=== PATIENT | female | born 1955 | race Caucasian/White ===

== ENCOUNTER 2022-11-09 12:15 | Outpatient (RCR) | payer MEDICARE, BC, SELFPAY | END 2022-11-16 13:56 | disposition home or self-care (01) | LOC: PT 12:15 | PROVIDERS: PCP Family Medicine; Visit Provider Family Medicine | DX: M25.561 Pain in right knee (principal); R26.9 Unspecified abnormalities of gait and mobility; R26.89 Other abnormalities of gait and mobility | CPT/HCPCS: 97113; 97161 ==

== ENCOUNTER 2023-07-11 13:29 | Outpatient (OUT) | payer MEDICARE, BC, SELFPAY | END 2023-07-11 13:30 | disposition home or self-care (01) | LOC: MN 13:31 | PROVIDERS: PCP Family Medicine | DX: E11.9 Type 2 diabetes mellitus without complications (principal); E78.5 Hyperlipidemia, unspecified | CPT/HCPCS: G0108 ==

== ENCOUNTER 2023-08-04 07:19 | Outpatient (OUT) | payer MEDICARE, BC, SELFPAY ==
--- OUTSIDE RECORDS SUMMARY | 2023-08-04 07:26 | XMS_ITS | CCD ---
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 Name Role Phone MD Jonah Carney Attending Provider NON STAFF Primary Care Provider Jonah Clayton Unavailable Unavailable Primary Care Provider UnavailShaikh Oswald MD Primary Care Provider MD Izabel West Primary Care Provider MD Izabel West Attending Provider PROVIDER, UNKNOWN Referring Unavailable SHAIKH WEST Primary Care Unavailable Shaikh West MD Primary Care Provider Narendra Dao MD Unavailable [phone] Miriam Nj RN Unavailable [phone] Norbert MILKING WORKER.Dipti MCINTYRE Unavailable Melquiades REED Shereen Unavailable Unavailable Shaikh West MD Primary Care Provider Narendra Dao MD Unavailable [phone] Clem SALES, Miriam Unavailable [phone] Norbert MILKING WORKER.MIGUELINA Dipti Unavailable [phone] Melquiades REED Shereen Unavailable Unavailable SHAIKH WEST Primary Care Unavailable GERA PHILLIPS Referring Unavailable MD Shahana Mercedes Attending Provider MD Nate Bobby Primary Care Provider Shaikh West Admitting Unavailable Shaikh West Attending Unavailable Shaikh West Primary Care Unavailable Shahana Mercedes Admitting Unavaila Shahana Tavarez Attending Unavaila Nate Gray Primary Care Unavailable Fawwad, Alejo Admitting Unavailable Fawwad, Alejo Attending Unavailable Fawwad, Alejo Primary Care Unavailable Olexa, Jonah Admitting Unavailable Olexa, Jonah Attending Unavailable NON STAFF Primary Care Unavailable Olexa, Jonah Admitting Unavailable Olexa, Jonah Attending Unavailable NON STAFF Primary Care Unavailable Olexa, Jonah Admitting Unavailable Olexa, Jonah Attending Unavailable NON STAFF Primary Care Unavailable Mukund MCGOVERN, Nate Reis Primary Care Provider Nate Bobby. Primary Care Physician Nate Bobby MD Primary Care Provider FAWWAD, ALEJO H Attending Unavailable FAWWAD, ALEJO H Consulting Unavailable FAWWAD, ALEJO H Primary Care Unavailable FAWWAD, ALEJO H Admitting Unavailable FAWWAD, ALEJO H Attending Unavailable FAWWAD, ALEJO H Consulting Unavailable FAWWAD, ALEJO H Primary Care Unavailable FAWWAD, ALEJO H Admitting Unavailable LENNY, DR JONA Pereira Consulting Unavailable FAWWAD, ALEJO H Primary Care Unavailable OLEXA, JONAH Admitting Unavailable OLEXA, JONAH Attending Unavailable OLEXA, JONAH Consulting Unavailable NATE BOBBY Admitting Unavailable WESTBY, DR PARISA Sumner Consulting Unavailable NATE BOBBY Attending Unavailable FAWWAD, ALEJO H Primary Care Unavailable RICHARD ALONSO Consulting Unavailable NARENDRA DAO Consulting Unavailable FAWWAD, ALEJO H Admitting Unavailable FAWWAD, ALEJO H Attending Unavailable FAWWAD, ALEJO H Consulting Unavailable FAWWAD, ALEJO H Primary Care Unavailable MARIANALYN ., ROBERTA Attending Unavailable TAMLYN ., ROBERTA Admitting Unavailable FAWWAD, ALEJO H Primary Care Unavailable TAMLYN ., ROBERTA Admitting Unavailable TAMLYN ., ROBERTA Attending Unavailable FAWWAD, ALEJO H Primary Care Unavailable FAWWAD, ALEJO H Attending Unavailable FAWWAD, ALEJO H Consulting Unavailable FAWWAD, ALEJO H Primary Care Unavailable FAWWAD, ALEJO H Admitting Unavailable FAWWAD, ALEJO Primary Care Unavailable MERCEDES, SHAHANA E Referring Unavailable FAWWAD, ALEJO Primary Care Unavailable CRITSAL, GERA E Referring Unavailable CRISTAL, GERA E Referring Unavailable ROSS, NATE E Primary Care [facility] Primary Care Unavailable MERCEDES, SHAHANA E Admitting Unavailable MERCEDES, SHAHANA E Attending Unavailable FAWNMD, ALEJO Primary Care Unavailable PROVIDER, UNKNOWN Admitting Unavailable PROVIDER, UNKNOWN Attending Unavailable JONNY SHAW Referring Unavailable JEANIE CHAMBERS Attending Unavail able ROSS, NATE E Primary Care Unavailable FAWWAD, ALEJO Primary Care Unavailable MERCEDES, SHAHANA E Referring Unavailable Clem RN, Miriam Unavailable [phone] Nate Bobby MD Primary Care Provider [phone] Mukund Nate E. Attending Unavailable Ross, Nate E. Attending Unavailable Ross, Nate E. Attending Unavailable Ross, Nate E. Attending Unavailable Richard Siegel Attending Unavailable Ross, Nate E. Attending Unavailable Ross, Nate E. Attending Unavailable Ross, Nate E. Attending Unavailable Ross, Nate E. Attending Unavailable Ross, Nate E. Admitting Unavailable Ross, Nate E. Attending Unavailable Ross, Nate E. Admitting Unavailable Ross, Nate E. Attending Unavailable ROSS, NATE E Primary Care Unavailable ROSS, NATE E Primary Care Unavailable ROSS, NATE E Primary Care Unavailable ROSS, NATE E Primary Care Unavailable REECE LEACH Attending Unavailable ROSS, NATE E Primary Care Unavailable ABHYANKAR, NARENDRA Referring Unavailable ABHYANKAR, NARENDRA Referring Unavailable ABHYANKAR, NARENDRA Attending Unavailable ROSS, NATE E Primary Care Unavailable ABHYANKAR, NARENDRA Referring Unavailable ROSS, NATE E Primary Care Unavailable ROSS, NATE E Primary Care Unavailable ROSS, NATE E Primary Care Unavailable ROSS, NATE E Primary Care Unavailable ABHYANKAR, NARENDRA Referring Unavailable MERCEDES, SHAHANA E Attending Unavailable ROSS, NATE E Primary Care Unavailable CRISTAL, GERA Referring Unavailable ROSS, NATE E Primary Care Unavailable ABHYANKAR, NARENDRA Attending Unavailable ABHYANKAR, NARENDRA Referring Unavailable ROSS, NATE E Primary Care Unavailable ROSS, NATE E Primary Care Unavailable ABHYANKAR, NARENDRA Attending Unavailable ROSS, NATE E Primary Care Unavailable ABHYANKAR, NARENDRA Attending Unavailable ROSS, NATE E Primary Care Unavailable ROSS, NATE E Primary Care Unavailable ROSS, NATE E Primary Care Unavailable ROSS, NATE E Primary Care Unavailable ABHYANKAR, NARENDRA Attending Unavailable ROSS, NATE E Primary Care Unavailable ROSS, NATE E Primary Care Unavailable ROSS, NATE E Primary Care Unavailable DIPTI MERRITT Attending Unavailable ABHYANKAR, NARENDRA Referring Unavailable ROSS, NATE E Primary Care Unavailable ABHYANKAR, NARENDRA Referring Unavailable ROSS, NATE E Primary Care Unavailable ROSS, NATE E Primary Care Unavailable ABHYANKAR, NARENDRA Referring Unavailable ROSS, NATE E Primary Care Unavailable ABHYANKAR, NARENDRA Referring Unavailable ABHYANKAR, NARENDRA Attending Unavailable ROSS, NATE E Primary Care Unavailable ABHYANKAR, NARENDRA Referring Unavailable ABHYANKAR, NARENDRA Referring Unavailable ABHYANKAR, NARENDRA Attending Unavailable ROSS, NATE E Primary Care Unavailable ROSS, NATE E Primary Care Unavailable ABHYANKAR, NARENDRA Attending Unavailable ABHYANKAR, NARENDRA Attending Unavailable ROSS, NATE E Primary Care Unavailable DIPTI MERRITT Referring Unavailable ABHYANKAR, NARENDRA Attending Unavailable ROSS, NATE E Primary Care Unavailable ROSS, NATE E Primary Care Unavailable DIPTI MERRITT Referring Unavailable ROSS, NATE E Primary Care Unavailable ABHYANKAR, NARENDRA Referring Unavailable ABHYANKAR, NARENDRA Attending Unavailable ROSS, NATE E Primary Care Unavailable ZACK WINSTON Referring Unavailable ZACK WINSTON Attending Unavailable ROSS, NATE E Primary Care Unavailable ROSS, NATE E Primary Care Unavailable REECE LEACH Attending Unavailable ROSS, NATE E Primary Care Unavailable ABHYANKAR, NARENDRA Attending Unavailable ROSS, NATE E Primary Care Unavailable ROSS, NATE E Primary Care Unavailable ABHYANKAR, NARENDRA Referring Unavailable ABHYANKAR, NARENDRA Attending Unavailable ROSS, NATE E Primary Care Unavailable ROSS, NATE E Primary Care Unavailable ABHYANKAR, NARENDRA Referring Unavailable ROSS, NATE E Primary Care Unavailable ZACK WINSTON Attending Unavailable ROSS, NATE E Primary Care Unavailable ROSS, NATE E Primary Care Unavailable Allergies Allergy Classification Reported Allergen(s) Allergy Type Date of Onset Reaction(s) Facility Angiotensin Converting Enzyme (CHARITY) Inhibitors (2 sources) Lisinopril Drug Allergy [address] [facility] (20 sources) Estrogens; Translations: [ESTROGENS] Drug Allergy [address] [facility] (20 sources) Lisinopril; Translations: [LISINOPRIL] Drug Allergy [address] [facility] (20 sources) Seasonal allergy; Translations: [SEASONAL ALLERGIES] Allergy to substance 8 Itching, Other: See Comments [facility] Medications Current Medications Medication Drug Class(es) Dates Sig (Normalized) Sig (Original) abemaciclib 50 mg oral tablet (20 sources) Start: 06-08-2023 End: 08-07-2023 take 1 tablet by mouth twice daily abemaciclib (VERZENIO) 50 mg tablet Indications: Breast cancer metastasized to axillary lymph node, right (HCC) , Other drug-induced neutropenia (HCC) take 1 tablet by mouth 2 times a day 60 tablet 1 07/31/2023 Active Start: 03-21-2023 End: 07-19-2023 take 1 tablet by mouth twice daily abemaciclib (VERZENIO) 100 mg tablet Indications: Malignant neoplasm of upper-outer quadrant of right breast in female, estrogen receptor positive (HCC) , Breast cancer metastasized to axillary lymph node, right (HCC) Take 1 tablet (100 mg) by mouth two times a day. 60 tablet 3 03/21/2023 06/08/2023 Discontinued Start: 01-04-2023 take 1 tablet by adalgisa th twice daily abemaciclib (VERZENIO) 150 mg tablet Indications: Malignant neoplasm of upper-outer quadrant of right breast in female, estrogen receptor positive (HCC) (HCC) , Breast cancer metastasized to axillary lymph node, right (HCC) take 1 tablet by mouth 2 times a day 56 tablet 3 01/04/2023 Active Start: 09-20-2022 End: 11-21-2022 take 1 tablet by mouth twice daily abemaciclib (VERZENIO) 150 mg tablet Indications: Malignant neoplasm of upper-outer quadrant of right breast in female, estrogen receptor positive (HCC) , Breast cancer metastasized to axillary lymph node, right (HCC) take 1 tablet by mouth 2 times a day 56 tablet 3 01/04/2023 Active Comment on above: Take 1 tablet (150 m g) by mouth twice daily. take 1 tablet by adalgisa 2 times a day Take 1 tablet (100 m g) by mouth two times a day. Take 1 tablet (50 mg ) by mouth two times a day. acetaminophen 325 mg oral tablet (20 sources) Start: 05-04-2021 Acetaminophen (Tylenol) 325 mg Tablet Active 650 MG PO [id number] May 04, 2021 12:00am take 2 tablets by mo [facility] every six hours as needed acetaminophen (TYLENOL) 325 mg tablet Ta ke 650 mg by mouth every 6 hours as needed. 0 Active Comment on above: Take 650 mg by mouth every 6 hours as needed. acetaminophen 325 mg / HYDROcodone bitartrate 5 mg oral tablet (2 sources) Opioid Agonist Start: End: take 1 tablet by mouth every eight hours as needed for pain HYDROcodone-acetam inophen (NORCO) 5-325 mg per tablet Indications: Malignant neoplasm of upper-outer quadrant of right breast in female, estrogen receptor positive (HCC) Take 1 tablet by mouth every 8 hours as needed for pain for up to 3 days. 5 tablet 0 03/25/2022 03/28/2022 Active Comment on above: Take 1 tablet by adalgisa every 8 hours as needed for pain for up to 3 days. [id number] 200 actuat albuterol 0.09 mg/actuat metered dose inhaler (20 sources) beta2-Adrenergic Agonist Start: take 2 puff(s) by inhalation four times daily as needed for wheezing albuterol HFA (PROVENTIL HFA, VENTOLIN HFA) 90 mcg/actuation inhaler INHALE 2 PUFFS 4 TIMES PER DAY NEEDED FOR SHORTNESS OF BREATH OR WHEEZING 0 02/01/2022 Active Comment on above: INHALE 2 PUFFS 4 SCOTT ES PER DAY NEEDED FOR SHORTNESS OF BREATH OR WHEEZING amLODIPine 10 mg oral tablet (20 sources) Dihydropyridine Calcium Channel Hadley Start: take 1 tablet by mouth once daily amLODIPine 10 mg Tab See Instructions, TAKE 1 TABLET BY MOUTH EVERY DAY, # 90 tab(s), Refills(s) 1, Pharmacy: [id number], 152, cm, 08/09/22 9:37:00 EDT, Height/Length Dosing, 101.5, kg, 08/09/22 9:37:00 EDT, Weight Dosing Start Date: 11/02/22 Status: Ordered Comment on above: Take 10 mg by mouth once daily. amLODIPine Benzoate (12 sources) amLODIPine Benzoate Active anastrozole 1 mg oral tablet (20 sources) Aromatase Inhibitor Start: 024 take 1 tablet by mouth once daily anastrozole (ARIMIDEX) 1 mg tablet Take 1 tablet by mouth once daily. 90 tablet 1 03/01/2023 Active Start: 05-25-2022 End: 01-10-2023 take 1 tablet by mouth once daily anastrozole (ARIMIDEX) 1 mg tablet TAKE 1 TABLET BY MOUTH EVERY DAY 90 tablet 1 01/10/2023 Active Comment on above: Take 1 tablet by adalgisa th once daily. TAKE 1 TABLET BY ADALGISA TH EVERY DAY atorvastatin 40 mg oral tablet (20 sources) HMG-CoA Reductase Inhibitor Start: 09-29-19 take 1 tablet by mouth once daily atorvastatin (LIPITOR) 40 mg tablet Take 40 mg by mouth once daily. 0 09/28/2021 Active Comment on above: Take 40 mg by mouth once daily. 60 actuat budesonide 0.16 mg/actuat / formoterol fumarate 0.0045 mg/actuat metered dose inhaler (9 sources) Corticosteroid, beta2-Adrenergic Agonist Start: 05-03-19 24 take 2 puff(s) by inhalation twice daily SYMBICORT 160-4.5 mcg/actuation inhaler Inhale 2 Puffs as instructed two times a day. 0 05/03/2023 Active Comment on above: Inhale 2 Puffs as in structed two times a day. carvedilol 25 mg oral tablet (20 sources) alpha-Adrenergic Hadley, beta-Adrenergic Hadley Start: 05-05-19 take 1 tablet by mouth twice daily carvedilol (COREG) 25 mg tablet Take 25 mg by mouth twice daily. 0 09/25/2021 Active Comment on above: Take 25 mg by mouth twice daily. celecoxib 100 mg oral capsule (20 sources) Nonsteroidal Anti-inflammatory Drug Start: 07-13-19 23 take 1 capsule by mouth twice daily celecoxib (CELEBREX) 100 mg capsule Take 100 mg by mouth twice daily. 0 07/12/2022 Active Comment on above: Take 100 mg by mouth twice daily. cephalexin 500 mg oral capsule (6 sources) Cephalosporin Antibacterial Start: 05-20-19 take 1 capsule by mouth every eight hours Cephalexin 500 MG 1 capsule Orally every 8 hrs for 2 days Apr, Active enteric contrast (will be provided with radiology test) (20 sources) Start: 12-14-19 End: 12-15-19 enteric contrast (will be provided with radiology test) For CT CHESTABD/PEL W IVCON Routine order Administer, As Directed One Time Only, via Oral, Rectal, both Oral and Rectal, Enteric Tube, Stoma or Indwelling Catheter, Enteric Contrast as designated per enteric contrast guidelines 1 Each 0 12/13/2022 12/14/2022 Active Start: 02-12-2022 End: 02-13-2022 enteric contrast (will be pr ovided with radiology test) For CT CHESTABD/PEL W IVCON Routine order Administer, As Directed One Time Only, via Oral, Rectal, both Oral and Rectal, Enteric Tube, Stoma or Indwelling Catheter, Enteric Contrast as designated per enteric contrast guidelines 1 Each 0 02/12/2022 02/13/2022 Active Start: 11-12-2021 End: 01-15-2022 enteric contrast (will be pr ovided with radiology test) For CT ABD/PEL W IVCON Routine order Administer, As Directed One Time Only, via Oral, Rectal, both Oral and Rectal, Enteric Tube, Stoma or Indwelling Catheter, Enteric Contrast as designated per enteric contrast guidelines 1 Each 0 11/12/2021 01/15/2022 Discontinued (Erroneous entry) Start: 11-12-[address] (will be provided with radiology test) For CT ABD/PEL W IVCON Routine order Administer, As Directed One Time Only, via Oral, Rectal, both Oral and Rectal, Enteric Tube, Stoma or Indwelling Catheter, Enteric Contrast as designated per enteric contrast guidelines 1 Each 0 11/12/2021 Active Comment on above: For CT ABD/PEL W IVC ON Routine order Administer, As Directed One Time Only, via Oral, Rectal, both Oral and Rectal, Enteric Tube, Stoma or Indwelling Catheter, Enteric Contrast as designated per enteric contrast guidelines For CT CHESTABD/PEL W IVCON Routine order Administer, As Directed One Time Only, via Oral, Rectal, both Oral and Rectal, Enteric Tube, Stoma or Indwelling Catheter, Enteric Contrast as designated per enteric contrast guidelines famciclovir 500 mg oral tablet (2 sources) Herpes Simplex Virus Nucleoside Analog DNA Polymerase Inhibitor Start: 2022 End: 2022 take 1 tablet by mouth three times daily famciclovir (FAMVIR) 500 mg tablet Take 1 tablet by mouth three times daily for 10 days. 30 tablet 0 10/05/2022 10/15/2022 Active Comment on above: Take 1 tablet by adalgisa th three times daily for 10 days. hydroCHLOROthiazide 25 mg oral tablet (16 sources) Thiazide Diuretic Start: 2021 take 25 mg by mouth once daily in the morning Hydrochlorothiazide Active 25 MG PO Every morning May 04, 2021 12:00am iv contrast (will be provided with radiology test) (20 sources) Start: 2022 End: 2022 iv contrast (will be provided with radiology test) CT Chest W -Inject, intravenously, once for 1 dose.No IV access, insert saline lock prior to the beginning of sedation, infusion, injection of imaging exam. Discontinue saline lock post exam. If Pt. has a central line or IVAD, may access for administration according to line specific nursing protocol. Once exam is complete flush line and de-access according to line specific nursing protocol in the CT contrast administration guidelines link. 1 Each 0 01/27/2023 01/28/2023 Active Start: 12-13-2022 End: 12-14-2022 iv contrast (will be provide d with radiology test) CT Chest ABD/PEL-Inject, intravenously, once for 1 dose.No IV access, insert saline lock prior to the beginning of sedation, infusion, injection of imaging exam. Discontinue saline lock post exam. If Pt. has a central line or IVAD, may access for administration according to line specific nursing protocol. Once exam is complete flush line and de-access according to line specific nursing protocol in the CT contrast administration guidelines link. 1 Each 0 12/13/2022 12/14/2022 Active Start: 02-12-2022 End: 02-13-2022 iv contrast (will be provide d with radiology test) MRI Breast AUSTEN Inject, intravenously, once for 1 dose. No IV access, insert saline lock prior to the beginning of sedation, infusion, injection of imaging exam. Discontinue saline lock post exam. If Pt has a central line or IVAD, may access for administration according to line specific nursing protocol. Once exam is complete flush line and de-access according to line specific nursing protocol in the MR contrast administration guidelines link 1 Each 0 02/12/2022 02/13/2022 Start: 02-12-2022 End: 02-13-2022 iv contrast (will be provide d with radiology test) MRI Breast AUSTEN Inject, intravenously, once for 1 dose. No IV access, insert saline lock prior to the beginning of sedation, infusion, injection of imaging exam. Discontinue saline lock post exam. If Pt has a central line or IVAD, may access for administration according to line specific nursing protocol. Once exam is complete flush line and de-access according to line specific nursing protocol in the MR contrast administration guidelines link 1 Each 0 02/12/2022 02/13/2022 Active Start: 02-12-2022 End: 02-13-2022 iv contrast (will be provide d with radiology test) CT Chest ABD/PEL-Inject, intravenously, once for 1 dose.No IV access, insert saline lock prior to the beginning of sedation, infusion, injection of imaging exam. Discontinue saline lock post exam. If Pt. has a central line or IVAD, may access for administration according to line specific nursing protocol. Once exam is complete flush line and de-access according to line specific nursing protocol in the CT contrast administration guidelines link. 1 Each 0 02/12/2022 02/13/2022 Active Start: 11-12-2021 End: 01-15-2022 iv contrast (will be provide d with radiology test) CT ABD/PEL -Inject, intravenously, once for 1 dose.No IV access, insert saline lock prior to the beginning of sedation, infusion, injection of imaging exam. Discontinue saline lock post exam. If Pt. has a central line or IVAD, may access for administration according to line specific nursing protocol. Once exam is complete flush line and de-access according to line specific nursing protocol in the CT contrast administration guidelines link. 1 Each 0 11/12/2021 01/15/2022 Discontinued (Erroneous entry) Start: 11-12-2021 iv contrast (w ill be provided with radiology test) CT ABD/PEL -Inject, intravenously, once for 1 dose.No IV access, insert saline lock prior to the beginning of sedation, infusion, injection of imaging exam. Discontinue saline lock post exam. If Pt. has a central line or IVAD, may access for administration according to line specific nursing protocol. Once exam is complete flush line and de-access according to line specific nursing protocol in the CT contrast administration guidelines link. 1 Each 0 11/12/2021 Active Start: 10-21-2021 End: 10-22-2021 iv contrast (will be provide d with radiology test) MRI Breast AUSTEN Inject, intravenously, once for 1 dose. No IV access, insert saline lock prior to the beginning of sedation, infusion, injection of imaging exam. Discontinue saline lock post exam. If Pt has a central line or IVAD, may access for administration according to line specific nursing protocol. Once exam is complete flush line and de-access according to line specific nursing protocol in the MR contrast administration guidelines link 1 Each 0 10/21/2021 10/22/2021 Start: 10-21-2021 End: 10-22-2021 iv contrast (will be provide d with radiology test) CT Chest W -Inject, intravenously, once for 1 dose.No IV access, insert saline lock prior to the beginning of sedation, infusion, injection of imaging exam. Discontinue saline lock post exam. If Pt. has a central line or IVAD, may access for administration according to line specific nursing protocol. Once exam is complete flush line and de-access according to line specific nursing protocol in the CT contrast administration guidelines link. 1 Each 0 10/21/2021 10/22/2021 Start: 10-21-2021 End: 10-22-2021 iv contrast (will be provide d with radiology test) MRI Breast AUSTEN Inject, intravenously, once for 1 dose. No IV access, insert saline lock prior to the beginning of sedation, infusion, injection of imaging exam. Discontinue saline lock post exam. If Pt has a central line or IVAD, may access for administration according to line specific nursing protocol. Once exam is complete flush line and de-access according to line specific nursing protocol in the MR contrast administration guidelines link 1 Each 0 10/21/2021 10/22/2021 Active Start: 10-21-2021 End: 10-22-2021 iv contrast (will be provide d with radiology test) CT Chest W -Inject, intravenously, once for 1 dose.No IV access, insert saline lock prior to the beginning of sedation, infusion, injection of imaging exam. Discontinue saline lock post exam. If Pt. has a central line or IVAD, may access for administration according to line specific nursing protocol. Once exam is complete flush line and de-access according to line specific nursing protocol in the CT contrast administration guidelines link. 1 Each 0 10/21/2021 10/22/2021 Active Comment on above: MRI Breast AUSTEN Injec t, intravenously, once for 1 dose. No IV access, insert saline lock prior to the beginning of sedation, infusion, injection of imaging exam. Discontinue saline lock post exam. If Pt has a central line or IVAD, may access for administration according to line specific nursing protocol. Once exam is complete flush line and de-access according to line specific nursing protocol in the MR contrast administration guidelines link CT Chest W -Inject, intravenously, once for 1 dose.No IV access, insert saline lock prior to the beginning of sedation, infusion, injection of imaging exam. Discontinue saline lock post exam. If Pt. has a central line or IVAD, may access for administration according to line specific nursing protocol. Once exam is complete flush line and de-access according to line specific nursing protocol in the CT contrast administration guidelines link. CT ABD/PEL -Inject, intravenously, once for 1 dose.No IV access, insert saline lock prior to the beginning of sedation, infusion, injection of imaging exam. Discontinue saline lock post exam. If Pt. has a central line or IVAD, may access for administration according to line specific nursing protocol. Once exam is complete flush line and de-access according to line specific nursing protocol in the CT contrast administration guidelines link. CT Chest ABD/PEL-Inj ect, intravenously, once for 1 dose.No IV access, insert saline lock prior to the beginning of sedation, infusion, injection of imaging exam. Discontinue saline lock post exam. If Pt. has a central line or IVAD, may access for administration according to line specific nursing protocol. Once exam is complete flush line and de-access according to line specific nursing protocol in the CT contrast administration guidelines link. levothyroxine sodium 0.05 mg oral tablet (20 sources) l-Thyroxine Start: 11-03-19 take 1 tablet by mouth once daily levothyroxine 50 mcg (0.05 mg) Tab See Instructions, TAKE 1 TABLET BY MOUTH EVERY DAY, # 90 tab(s), Refills(s) 1, Pharmacy: [facility] STORE [id number], 152, cm, 08/09/22 9:37:00 EDT, Height/Length Dosing, 101.5, kg, 08/09/22 9:37:00 EDT, Weight Dosing Start Date: 11/02/22 Status: Ordered Start: 05-03-2022 take 1 tablet by adalgisa once daily levothyroxine 50 mcg (0.05 mg) Tab 50 mcg = 1 tab(s), Oral, Daily, # 90 tab(s), Refills(s) 1, Pharmacy: [facility]/pharmacy #[id number], 157, cm, 05/03/22 11:07:00 EST, Height/Length Dosing, 100.2, kg, 05/03/22 11:07:00 EST, Weight Dosing Start Date: 05/03/22 Status: Ordered Start: 05-04-2021 take 50 ug by mouth once daily in the morning Levothyroxine Active 50 MCG PO Every morning May 04, 2021 12:00am take 50 ug by mouth once daily l evothyroxine sodium (LEVOTHYROXINE ORAL) Take 50 mcg by mouth once daily. 0 Active take 1 capsule by mo [facility] once daily in the morning Levothyroxine Sodium 50 MCG 1 capsule in the morning on an empty stomach Orally Once a day Active levothyroxine so dium (LEVOTHYROXINE ORAL) Take by mouth. 0 Active Comment on above: Take by mouth. Take 50 mcg by mouth once daily. loperamide hydrochloride 2 mg oral capsule (20 sources) Opioid Agonist Start: 3 take 1 capsule by mouth every six hours as needed loperamide (ANTI-DIARRHEAL) 2 mg cap(s) Take 1 capsule by mouth four times daily as needed for diarrhea. 100 capsule 1 09/21/2022 Active Comment on above: Take 1 capsule by mo [facility] four times daily as needed for diarrhea. loratadine 10 mg oral tablet (20 sources) Start: 2 take 1 tablet by mouth once daily loratadine (CLARITIN) 10 mg tablet Take 10 mg by mouth once daily. 0 08/25/2021 Active Comment on above: Take 10 mg by mouth once daily. losartan potassium 100 mg oral tablet (20 sources) Angiotensin 2 Receptor Hadley Start: 2 End: 2 take 100 mg by mouth once daily in the morning Losartan Active 100 MG PO Every morning May 04, 2021 12:00am Comment on above: Take 100 mg by mouth once daily. meloxicam 15 mg oral tablet (20 sources) Nonsteroidal Anti-inflammatory Drug Start: 2 End: 2 take 15 mg by mouth once daily Meloxicam Active 15 MG PO Daily May 04, 2021 12:00am Comment on above: Take 15 mg by mouth once daily. metFORMIN hydrochloride 1000 mg oral tablet (20 sources) Biguanide Start: 2 metFORMIN (GLUCOPHAGE) 1,000 mg tablet Metformin Active 1000 MG PO Every morning May 04, 2021 3:24pm 0 05/04/2021 Active Start: 05-04-2021 metFORMIN (GLU COPHAGE) 1,000 mg tablet Metformin Active 1000 MG PO Every morning May 04, 2021 3:24pm 0 05/04/2021 Active Comment on above: Metformin Active 100 0 MG PO Every morning May 04, 2021 3:24pm Metformin & Diet Manage Prod (12 sources) Metformin & Diet Manage Prod Active multivit-min/iron/FA/ vit K/lut (CENTRUM SILVER WOMEN ORAL) (9 sources) multivit-min/iro n/FA /vit K/lut (CENTRUM SILVER WOMEN ORAL) Take by mouth once daily. Over 50 0 Active Comment on above: Take by mouth once d aily. Over 50 ondansetron 8 mg oral tablet (20 sources) Serotonin-3 Receptor Antagonist Start: 3 take 1 tablet by mouth every eight hours as needed ondansetron (ZOFRAN) 8 mg tablet Take 1 tablet by mouth every 8 hours as needed for nausea/vomiting. 90 tablet 1 09/21/2022 Active Start: 11-18-2021 End: 08-17-2022 take 1 tablet by mouth every eight hours as needed ondansetron (ZOFRAN) 8 mg tablet Take 1 tablet by mouth every 8 hours as needed for nausea/vomiting. 90 tablet 1 11/18/2021 08/17/2022 Discontinued (Discontinued by Patient) Comment on above: Take 1 tablet by adalgisa th every 8 hours as needed for nausea/vomiting. Ozempic (12 sources) Ozempic Active polyethylene glycol 3350 382228 mg / potassium chloride 2970 mg / sodium bicarbonate 6740 mg / sodium chloride 5860 mg / sodium sulfate 26057 mg powder for oral solution (2 sources) Osmotic Laxative Start: 2022 End: 2022 peg 3350-Electrolytes (GOLYTELY) 236-22.74-6.74 -5.86 gram suspension Take 4,000 mL by mouth one time only for 1 dose. Refer to printed prep instructions from your provider. 4000 mL 0 03/22/2022 03/22/2022 Active Comment on above: Take 4,000 mL by adalgisa th one time only for 1 dose. Refer to printed prep instructions from your provider. prochlorperazine 10 mg oral tablet (20 sources) Phenothiazine Start: 2022 take 1 tablet by mouth every six hours as needed prochlorperazine (COMPAZINE) 10 mg tablet Take 1 tablet by mouth every 6 hours as needed. 100 tablet 1 09/21/2022 Active Start: 11-18-2021 End: 08-17-2022 take 1 tablet by mouth every six hours as needed prochlorperazine (COMPAZINE) 10 mg tablet Take 1 tablet by mouth every 6 hours as needed. 100 tablet 1 11/18/2021 08/17/2022 Discontinued (Discontinued by Patient) Comment on above: Take 1 tablet by adalgisa th every 6 hours as needed. rOPINIRole 0.25 mg oral tablet (20 sources) Nonergot Dopamine Agonist Start: 05-04-2021 take 1 tablet by mouth once daily ropinirole 0.25 mg Tab See Instructions, TAKE 1 TABLET BY MOUTH EVERY DAY, # 90 tab(s), Refills(s) 1, Pharmacy: [facility] STORE [id number], 152, cm, 11/08/22 8:44:00 EDT, Height/Length Dosing, 97.1, kg, 11/08/22 8:44:00 EDT, Weight Dosing Start Date: 01/14/23 Status: Ordered take 1 tablet by mouth three scott es daily rOPINIRole (REQUIP) 0.25 mg tablet Take 0.25 mg by mouth three times daily. 0 Active Comment on above: Take 0.25 mg by mout h three times daily. Take 0.25 mg by mout h daily at bedtime. 0.25 mg, 0.5 mg dose 1.5 ml semaglutide 1.34 mg/ml pen injector (20 sources) Start: 05-04-2021 Semaglutide (Ozempic) 0.25 mg or 0.5 mg(2 mg/1.5 mL) pen injector Active 0.5 MG SUBCUT every week May 04, 2021 12:00am End: 05-04-2022 semaglutide (OZEMPIC) 0.25 m g or 0.5 mg(2 mg/1.5 mL) pen injector Inject 0.25 mg subcutaneously one time a week. 0 05/04/2022 Discontinued Comment on above: Inject 0.25 mg subcu taneously one time a week. sulfamethoxazole 800 mg / trimethoprim 160 mg oral tablet (5 sources) Dihydrofolate Reductase Inhibitor Antibacterial, Sulfonamide Antimicrobial Start: 05-14-19 End: 05-21-19 take 1 tablet by mouth twice daily sulfamethoxazole -trimethoprim (BACTRIM DS) 800-160 mg per tablet Take 1 tablet by mouth twice daily for 7 days. 14 tablet 0 05/13/2022 05/20/2022 Active Comment on above: Take 1 tablet by adalgisa th twice daily for 7 days. traMADol hydrochloride 50 mg oral tablet (20 sources) Opioid Agonist Start: 05-05-19 take 50 mg by mouth three times daily Tramadol Active 50 MG PO Three times daily May 04, 2021 12:00am End: 11-19-2021 take 1 tablet by mouth every six hours as needed traMADol (ULTRAM) 50 mg tablet Take 50 mg by mouth every 6 hours as needed for pain. 0 11/19/2021 Discontinued (Discontinued by Patient) Comment on above: Take 50 mg by mouth every 6 hours as needed for pain. Completed/Discontinued Medications Medication Drug Class(es) Dates Sig (Normalized) Sig (Original) acetaminophen 325 mg / oxyCODONE hydrochloride 5 mg oral tablet (6 sources) Opioid Agonist Start: 05-19-2021 take 1 tablet by mouth every four hours as needed for pain Percocet 5-325 MG 1 tablet as needed for pain Orally up to every 4 hrs for 5 days Apr, Not-Taking alteplase 2 mg catheter clearance solution (CATHFLO) (1 source) Start: 02-05-2022 End: 02-05-2022 alteplase 2 mg catheter clearance solution (CATHFLO) amoxicillin 875 mg / clavulanate 125 mg oral tablet (7 sources) Penicillin-class Antibacterial Start: 04-15-2022 End: 04-25-2022 take 1 tablet by mouth every twelve hours amoxicillin-clav ulanic acid (AUGMENTIN) 875-125 mg per tablet Take 1 tablet by mouth every 12 hours for 10 days. 20 tablet 0 04/15/2022 04/25/2022 Start: 02-15-2022 End: 02-22-2022 take 1 tablet by mouth twice daily amoxicillin-clavulanic acid (AUGMENTIN) 875-125 mg per tablet Take 1 tablet by mouth twice daily for 7 days. 14 tablet 0 02/15/2022 02/22/2022 Active Comment on above: Take 1 tablet by adalgisa th twice daily for 7 days. Take 1 tablet by adalgisa th every 12 hours for 10 days. diphenhydrAMINE 12.5 mg/5 mL lidocaine visc 2% MAALOX 200-200-20 mg/5 mL oral liquid 1:1:1 (CPD) (7 sources) Start: 07-08-2022 End: 08-17-2022 diphenhydrAMINE 12.5 mg/5 mL lidocaine visc 2% MAALOX 200-200-20 mg/5 mL oral liquid 1:1:1 (CPD) Take 5-10 mL by mouth and swallow (allowing to coat the back of the throat) 5-6 times a day as needed for discomfort including before meals and before bedtime 360 mL 1 07/08/2022 08/17/2022 Discontinued (Course of therapy completed) Start: 07-08-2022 diphenhydrAMIN E 12.5 mg/5 mL lidocaine visc 2% MAALOX 200-200-20 mg/5 mL oral liquid 1:1:1 (CPD) Take 5-10 mL by mouth and swallow (allowing to coat the back of the throat) 5-6 times a day as needed for discomfort including before meals and before bedtime 360 mL 1 07/08/2022 Active Comment on above: Take 5-10 mL by mout h and swallow (allowing to coat the back of the throat) 5-6 times a day as needed for discomfort including before meals and before bedtime hydroCHLOROthiazide 25 mg / losartan potassium 100 mg oral tablet (7 sources) Thiazide Diuretic, Angiotensin 2 Receptor Hadley Start: End: take 1 tablet by mouth once daily losartan-hydroCHLOR Othiazide (HYZAAR) 100-25 mg per tablet Take 1 tablet by mouth once daily. 0 12/15/2021 02/12/2022 Discontinued (Discontinued by another Health Care Provider) Comment on above: Take 1 tablet by adalgisa th once daily. multivit-min/ferrous fumarate (MULTI VITAMIN ORAL) (6 sources) End: multivit-min/ferrou s fumarate (MULTI VITAMIN ORAL) Take by mouth once daily. 0 07/29/2023 Discontinued multivit-min/sherri moncho fumarate (MULTI VITAMIN ORAL) Take by mouth once daily. 0 Active Comment on above: Take by mouth once d aily. multivitamin with minerals (HAIR,SKIN AND NAILS ORAL) (20 sources) End: 02-26-2023 take 2 tablets by mouth once daily multivitamin with minerals (HAIR,SKIN AND NAILS ORAL) Take 2 tablets by mouth once daily. 0 02/26/2023 Discontinued take 2 tablets by mouth once katheryn ly multivitamin with minerals (HAIR,SKIN AND NAILS ORAL) Take 2 tablets by mouth once daily. 0 Active Comment on above: Take 2 tablets by mo uth once daily. multivitamin/folic acid/biotin (NWZY-[id number]-OPQUX, RW-RP-OAURZX, ORAL) (20 sources) End: 04-11-2022 take 3 tablets by mouth once daily multivitamin/folic acid/biotin (BGLE-XVKC-BFKHU, FL-YL-BARRVS, ORAL) Take 3 tablets by mouth once daily. 0 04/11/2022 Discontinued take 3 tablets by mouth once katheryn ly multivitamin/folic acid/biotin (FAOA-FYCC-VCLLE, AJ-LT-SZUTJT, ORAL) Take 3 tablets by mouth once daily. 0 Active Comment on above: Take 3 tablets by mo uth once daily. nystatin 100 unt/mg topical powder (20 sources) Polyene Antifungal Start: 06-22-2022 End: 08-17-2022 nystatin (MYCOSTATIN) powder Apply to affected area 2-3 times a day until resolved. 60 g 1 06/22/2022 08/17/2022 Discontinued (Discontinued by another Health Care Provider) Start: 05-13-2022 End: 05-26-2022 nystatin (MYCOSTATIN) powder Apply 1 application to affected area twice daily. 15 g 0 05/13/2022 05/26/2022 Discontinued Comment on above: Apply 1 application to affected area twice daily. Apply to affected ar ea 2-3 times a day until resolved. Triamcinolone (14 sources) Corticosteroid Start: 03-24-2021 Kenalog -40 mg Feb, 40 mg Start: 09-23-2020 Kenalog -40 mg Aug, 40 mg Problems Active Problems Problem Classification Problem Date Documented Da te Episodic/Chronic Asthma (20 sources) Mild intermittent asthma; Translations: [Mild intermittent asthma, uncomplicated] Onset: 02-08-2022 Chronic Cancer of breast (20 sources) Malignant neoplasm of upper-outer quadrant of female breast; Translations: [Malignant neoplasm of upper-outer quadrant of right female breast] Onset: 10-21-2021 10-21-2021 Chronic Cancer of breast (1 source) Personal history of malignant neoplasm of breast; Translations: [PERS HX MALIGNANT NEOPLASM BREAST] Onset: 07-20-2022 Episodic Chronic kidney disease (20 sources) Chronic kidney disease stage 3; Translations: [Stage 3 chronic kidney disease] Onset: 12-15-2022 12-15-2022 Chronic Coagulation and hemorrhagic disorders (20 sources) Platelet count below reference range; Translations: [Thrombocytopenia, unspecified] Onset: 12-15-2022 12-15-2022 Chronic Complications of surgical procedures or medical care (7 sources) Dehiscence of surgical wound; Translations: [Disruption of external operation (surgical) wound, not elsewhere classified, sequela] Onset: 06-28-2022 Episodic Diabetes mellitus with complications (2 sources) Type 2 diabetes mellitus with hypoglycemia without coma; Translations: [Type 2 diabetes mellitus with diabetic nephropathy] Onset: 02-13-2022 Chronic Diabetes mellitus without complication (20 sources) Type 2 diabetes mellitus without complication; Translations: [Type 2 diabetes mellitus without complications] Onset: 03-19-2022 Chronic Diseases of white blood cells (20 sources) Drug-induced neutropenia; Translations: [Other drug-induced agranulocytosis] Onset: 04-11-2023 04-11-2023 Chronic Disorders of lipid metabolism (20 sources) Hyperlipidemia; Translations: [Hyperlipidemia, unspecified] Onset: 03-19-2022 Chronic Diverticulosis and diverticulitis (7 sources) Diverticulitis; Translations: [Diverticulitis of intestine, part unspecified, without perforation or abscess without bleeding] Onset: 05-24-2022 Chronic Essential hypertension (20 sources) Essential hypertension; Translations: [Essential (primary) hypertension] Onset: 03-19-2022 Chronic Heart valve disorders (20 sources) Aortic valve regurgitation; Translations: [Nonrheumatic aortic (valve) insufficiency] Onset: 03-19-2022 Chronic Immunizations and screening for infectious disease (1 source) Needs influenza immunization; Translations: [Encounter for immunization] Episodic Menopausal disorders (4 sources) Menopausal and female climacteric states; Translations: [MENOPAUSAL FE CLIMACTERIC STATES] Onset: 07-27-2022 Chronic Mood disorders (20 sources) Recurrent major depressive episodes, moderate ; Translations: [Major depressive disorder, recurrent, moderate] Onset: 07-23-2022 07-23-2022 Chronic Nonmalignant breast conditions (5 sources) Breast lump; Translations: [Unspecified lump in the right breast, unspecified quadrant] 10-02-2021 Episodic Osteoarthritis (17 sources) Osteoarthritis of joint of right shoulder region; Translations: [Primary osteoarthritis, right shoulder] Onset: 2021 Resolved: 09-01-2021 Chronic Other aftercare (5 sources) Surgical follow-up; Translations: [Encounter for follow-up examination after completed treatment for conditions other than malignant neoplasm] Episodic Other bone disease and musculoskeletal deformities (1 source) Other specified disorders of bone density and structure, other site; Translations: [OTH D/O BONE DEN STRUCT OTH SITE] Onset: 07-28-2022 Episodic Other bone disease and musculoskeletal deformities (1 source) Osteopenia 07-28-2022 Episodic Other connective tissue disease (6 sources) History of reverse prosthetic total arthroplasty of right shoulder; Translations: [Presence of right artificial shoulder joint] Chronic Other connective tissue disease (8 sources) Presence of right artificial shoulder joint; Translations: [PRESENCE RT ARTIFICIAL SHOULDER JNT] Onset: 05-19-2021 Resolved: 09-01-2021 Chronic Other connective tissue disease (11 sources) Full thickness rotator cuff tear; Translations: [Complete rotator cuff tear or rupture of right shoulder, not specified as traumatic] Episodic Other connective tissue disease (7 sources) Muscle finding; Translations: [Myalgia, unspecified site] Onset: 08-02-2023 11-09-2022 Episodic Other connective tissue disease (1 source) Muscle pain; Translations: [Myalgia, unspecified site] 08-01-2023 Episodic Other hematologic conditions (1 source) Cytopenia caused by drug; Translations: [Disease of blood and blood-forming organs, unspecified] 04-11-2023 Episodic Other hereditary and degenerative nervous system conditions (20 sources) Restless legs; Translations: [Restless legs syndrome] Onset: 03-19-2022 Chronic Other lower respiratory disease (3 sources) Multiple nodules of lung; Translations: [Other nonspecific abnormal finding of lung field] Episodic Other non-traumatic joint disorders (12 sources) Derangement of right shoulder joint; Translations: [Other specific joint derangements of right shoulder, not elsewhere classified] Chronic Other non-traumatic joint disorders (1 source) Other specific joint derangements of right shoulder, not elsewhere classified Onset: 03-17-2021 Resolved: 03-17-2021 Chronic Other non-traumatic joint disorders (1 source) Knee pain 08-09-2022 Episodic Other nutritional; endocrine; and metabolic disorders (20 sources) Morbid obesity; Translations: [Morbid (severe) obesity due to excess calories] Onset: 03-19-2022 Chronic Other nutritional; endocrine; and metabolic disorders (20 sources) Body mass index 40+ - severely obese; Translations: [Morbid (severe) obesity due to excess calories] Onset: 03-23-2022 03-23-2022 Chronic Secondary malignancies (2 sources) Secondary and unspecified malignant neoplasm of axilla and upper limb lymph nodes; Translations: [Breast cancer metastasized to axillary lymph node, right (HCC)] Onset: 03-09-2022 Chronic Thyroid disorders (20 sources) Hypothyroidism; Translations: [Hypothyroidism, unspecified] Onset: 02-13-2022 Chronic Unclassified (1 source) Malignant neoplasm of unspecified site of right female breast; Translations: [Malignant neoplasm of unspecified site of right female breast] Onset: 04-23-2022 Unclassified (1 source) Unspecified lump in the right breast, upper outer quadrant; Translations: [Unspecified lump in the right breast, upper outer quadrant] Onset: 10-02-2021 Unclassified (1 source) Unspecified lump in the right breast, upper inner quadrant; Translations: [Unspecified lump in the right breast, upper inner quadrant] Onset: 09-30-2021 Unclassified (1 source) M75.121 - Complete rotator cuff tear or rupture of right shoulder, not specified as traumatic; Translations: [M75.121 - Complete rotator cuff tear or rupture of right shoulder, not specified as traumatic] Onset: 05-20-2021 Unclassified (1 source) Z01.812 - Encounter for preprocedural laboratory examination; Translations: [Z01.812 - Encounter for preprocedural laboratory examination] Onset: 05-18-2021 Unclassified (1 source) Encounter for preprocedural laboratory examination; Translations: [Encounter for preprocedural laboratory examination] Onset: 05-04-2021 Unclassified (2 sources) Non-smoker 05-03-2022 Unclassified (1 source) OPENED IN ERROR Unclassified (1 source) Pain of knee region 11-08-2022 Viral infection (4 sources) Herpes zoster without complication; Translations: [Zoster without complications] 10-05-2022 Episodic Past or Other Problems Problem Classification Problem Date Documented Date Episodic/Chronic Deficiency and other anemia (20 sources) Anemia; Translations: [Anemia, unspecified] Onset: 03-19-2022 Episodic Deficiency and other anemia (4 sources) Anemia, unspecified; Translations: [ANEMIA UNSPECIFIED] Onset: 02-24-2022 Episodic Other connective tissue disease (5 sources) Complete rotator cuff tear or rupture of right shoulder, not specified as traumatic Onset: 2021 Resolved: 09-01-2021 Episodic Other lower respiratory disease (1 source) Other nonspecific abnormal finding of lung field; Translations: [Lung nodules] Onset: 02-17-2023 Episodic Other non-traumatic joint disorders (6 sources) Pain in right shoulder Onset: 03-17-2021 Resolved: 09-01-2021 Episodic Other non-traumatic joint disorders (1 source) Pain in right knee Onset: 09-01-2021 Resolved: 09-01-2021 Episodic Residual codes; unclassified (6 sources) Estrogen receptor positive status [ER+]; Translations: [Malignant neoplasm of upper-outer quadrant of right breast in female, estrogen receptor positive (HCC)] Onset: 10-21-2021 Episodic Residual codes; unclassified (20 sources) At risk of lymphedema; Translations: [Other specified personal risk factors, not elsewhere classified] Onset: 05-13-2022 Episodic Residual codes; unclassified (20 sources) Postoperative state; Translations: [Other specified postprocedural states] Onset: 05-20-2022 Episodic Results Test Name Value Interpretation Reference Range Facil ity CNOVSPon 08-02-2023 CNOVSP Normal [facility] CBC W Auto Differential pane l (Bld)on 08-01-2023 Basophils (Bld) [#/Vol] [facility] Basophils/100 WBC (Bld) 0.8 % [facility] Differential cell count method Nom (Bld) Auto [facility] Eosinophils (Bld) [#/Vol] 0.07 10*3/uL [facility] Eosinophils/100 WBC (Bld) 2.7 % [facility] Erythrocyte distribution width (RBC) [Ratio] 14.1 % 11.5 - 15.0 % [facility] Hematocrit (Bld) [Volume fraction] 33.2 % Low 36.0 - 46.0 % [facility] Hemoglobin (Bld) [Mass/Vol] 11.2 g/dL Low 11.5 - 15.5 g/dL [facility] Immature granulocytes (Bld) [#/Vol] [facility] Immature granulocytes/100 WBC (Bld) 0.8 % [facility] Interpretation and review of laboratory results Abnormal [facility] Lymphocytes (Bld) [#/Vol] 0.92 10*3/uL Low [facility] Lymphocytes/100 WBC (Bld) 35.1 % [facility] MCH (RBC) [Entitic mass] 34.5 pg High 26.0 - 34.[address] [facility] MCHC (RBC) [Mass/Vol] 33.7 g/dL 30.5 - 36.0 g/dL [facility] MCV (RBC) [Entitic vol] 102.2 fL High 80.0 - 100.[address] [facility] Monocytes (Bld) [#/Vol] 0.21 10*3/uL [facility] Monocytes/100 WBC (Bld) 8.0 % [facility] Neutrophils (Bld) [#/Vol] 1.38 10*3/uL Low [facility] Neutrophils/100 WBC (Bld) 52.6 % [facility] Nucleated RBC (Bld) [#/Vol] NINF [facility] Nucleated RBC/100 WBC (Bld) [Ratio] 0.0 % /[address] [facility] Platelet mean volume (Bld) [Entitic vol] 9.1 fL 9.0 - 12.[address] [facility] Platelets (Bld) [#/Vol] 161 10*3/uL [facility] RBC (Bld) [#/Vol] 3.25 10*6/uL Low 3.90 - 5.20 m/uL [facility] WBC (Bld) [#/Vol] 2.62 10*3/uL Low [facility] Basophils (Bld) [#/Vol] 10*3/uL Normal <0.11 [facility] Comment on above: Order Comment: Speci men Type: BLOOD SPECIMENOrdering Facility: [facility] Address: [address] [place] [address] Performed By: #### 5 [id number] ####[facility] LABCLIA [id number] [place] [address] Basophils/100 WBC (Bld) 0.8 % Normal [facility] Comment on above: Order Comment: Speci men Type: BLOOD SPECIMENOrdering Facility: [facility] Address: [address] [place] [address] Performed By: #### 5 [id number] ####[facility] LABCLIA [id number] [place] [address] Differential cell count method Nom (Bld) Auto Normal [facility] Comment on above: Order Comment: Speci men Type: BLOOD SPECIMENOrdering Facility: [facility] Address: [address] [place] [address] Performed By: #### 5 [id number] ####[facility] LABCLIA [id number] [place] [address] Eosinophils (Bld) [#/Vol] 0.07 10*3/uL Normal <0.46 [facility] Comment on above: Order Comment: Speci men Type: BLOOD SPECIMENOrdering Facility: [facility] Address: [address] [place] [address] Performed By: #### 5 7021-8 ####[facility] LABCLIA [id number] [place] [address] Eosinophils/100 WBC (Bld) 2.7 % Normal [facility] Comment on above: Order Comment: Speci men Type: BLOOD SPECIMENOrdering Facility: [facility] Address: [address] [place] [address] Performed By: #### 5 7021-8 ####[facility] LABCLIA [id number] [place] [address] Erythrocyte distribution width (RBC) [Ratio] 14.1 % Normal 11.5-15.0 [facility] Comment on above: Order Comment: Speci men Type: BLOOD SPECIMENOrdering Facility: [facility] Address: [address] [place] [address] Performed By: #### 5 7021-8 ####[facility] LABCLIA [id number] [place] [address] Hematocrit (Bld) [Volume fraction] 33.2 % Low 36.0-46.0 [facility] Comment on above: Order Comment: Speci men Type: BLOOD SPECIMENOrdering Facility: [facility] Address: [address] [place] [address] Performed By: #### 5 7021-8 ####[facility] LABCLIA [id number] [place] [address] Hemoglobin (Bld) [Mass/Vol] 11.2 g/dL Low 11.5-15.5 [facility] Comment on above: Order Comment: Speci men Type: BLOOD SPECIMENOrdering Facility: [facility] Address: [address] [place] [address] Performed By: #### 5 7021-8 ####[facility] LABCLIA [id number] [place] [address] Immature granulocytes (Bld) [#/Vol] 10*3/uL Normal <0.10 [facility] Comment on above: Order Comment: Speci men Type: BLOOD SPECIMENOrdering Facility: [facility] Address: [address] [place] [address] Performed By: #### 5 7021-8 ####[facility] LABCLIA [id number] [place] [address] Immature granulocytes/100 WBC (Bld) 0.8 % Normal [facility] Comment on above: Order Comment: Speci men Type: BLOOD SPECIMENOrdering Facility: [facility] Address: [address] [place] [address] Performed By: #### 5 7021-8 ####[facility] LABCLIA [id number] [place] [address] Lymphocytes (Bld) [#/Vol] 0.92 10*3/uL Low 1.00-4.00 [facility] Comment on above: Order Comment: Speci men Type: BLOOD SPECIMENOrdering Facility: [facility] Address: [address] [place] [address] Performed By: #### 5 7021-8 ####[facility] LABCLIA [id number] [place] [address] Lymphocytes/100 WBC (Bld) 35.1 % Normal [facility] Comment on above: Order Comment: Speci men Type: BLOOD SPECIMENOrdering Facility: [facility] Address: [address] [place] [address] Performed By: #### 5 7021-8 ####[facility] LABIA [id number] [place] [address] MCH (RBC) [Entitic mass] 34.5 pg High 26.0-34.0 [facility] Comment on above: Order Comment: Speci men Type: BLOOD SPECIMENOrdering Facility: [facility] Address: [address] [place] [address] Performed By: #### 5 7021-8 ####[facility] LABCLIA [id number] [place] [address] MCHC (RBC) [Mass/Vol] 33.7 g/dL Normal 30.5-36.0 [facility] Comment on above: Order Comment: Speci men Type: BLOOD SPECIMENOrdering Facility: [facility] Address: [address] [place] [address] Performed By: #### 5 7021-8 ####[facility] LABCLIA [id number] [place] [address] MCV (RBC) [Entitic vol] 102.2 fL High 80.0-100.0 [facility] Comment on above: Order Comment: Speci men Type: BLOOD SPECIMENOrdering Facility: [facility] Address: [address] [place] [address] Performed By: #### 5 7021-8 ####[facility] LABCLIA [id number] [place] [address] Monocytes (Bld) [#/Vol] 0.21 10*3/uL Normal <0.87 [facility] Comment on above: Order Comment: Speci men Type: BLOOD SPECIMENOrdering Facility: [facility] Address: [address] [place] [address] Performed By: #### 5 7021-8 ####[facility] LABCLIA [id number] [place] [address] Monocytes/100 WBC (Bld) 8.0 % Normal [facility] Comment on above: Order Comment: Speci men Type: BLOOD SPECIMENOrdering Facility: [facility] Address: [address] [place] [address] Performed By: #### 5 7021-8 ####[facility] LABCLIA [id number] [place] [address] Neutrophils (Bld) [#/Vol] 1.38 10*3/uL Low 1.45-7.50 [facility] Comment on above: Order Comment: Speci men Type: BLOOD SPECIMENOrdering Facility: [facility] Address: [address] [place] [address] Performed By: #### 5 7021-8 ####[facility] LABCLIA [id number] [place] [address] Neutrophils/100 WBC (Bld) 52.6 % Normal [facility] Comment on above: Order Comment: Speci men Type: BLOOD SPECIMENOrdering Facility: [facility] Address: [address] [place] [address] Performed By: #### 5 7021-8 ####[facility] LABCLIA [id number] [place] [address] Nucleated RBC (Bld) [#/Vol] 10*3/uL Normal <0.01 [facility] Comment on above: Order Comment: Speci men Type: BLOOD SPECIMENOrdering Facility: [facility] Address: [address] [place] [address] Performed By: #### 5 7021-8 ####[facility] LABCLIA [id number] [place] [address] Nucleated RBC/100 WBC (Bld) [Ratio] 0.0 /100 WBC Normal [facility] Comment on above: Order Comment: Speci men Type: BLOOD SPECIMENOrdering Facility: [facility] Address: [address] [place] [address] Performed By: #### 5 7021-8 ####[facility] LABCLIA [id number] [place] [address] Platelet mean volume (Bld) [Entitic vol] 9.1 fL Normal 9.0-12.7 [facility] Comment on above: Order Comment: Speci men Type: BLOOD SPECIMENOrdering Facility: [facility] Address: [address] [place] [address] Performed By: #### 5 7021-8 ####[facility] LABCLIA [id number] [place] [address] Platelets (Bld) [#/Vol] 161 10*3/uL Normal 150-400 [facility] Comment on above: Order Comment: Speci men Type: BLOOD SPECIMENOrdering Facility: [facility] Address: [address] [place] [address] Performed By: #### 5 7021-8 ####[facility] LABCLIA [id number] [place] [address] RBC (Bld) [#/Vol] 3.25 10*6/uL Low 3.90-5.20 [facility] Comment on above: Order Comment: Speci men Type: BLOOD SPECIMENOrdering Facility: [facility] Address: [address] [place] [address] Performed By: #### 5 7021-8 ####[facility] LABIA [id number] [place] [address] WBC (Bld) [#/Vol] 2.62 10*3/uL Low 3.70-11.00 [facility] Comment on above: Order Comment: Speci men Type: BLOOD SPECIMENOrdering Facility: [facility] Address: [address] [place] [address] Performed By: #### 5 7021-8 ####[facility] LABIA [id number] [place] [address] CNOVSPon 08-01-2023 CNOVSP Normal [facility] Cancer Ag15-3 SerPl-aCncon 0 08-01-2023 Cancer Ag 15-3 Qn 21.4 U/mL Normal <26.0 [facility] Comment on above: Order Comment: Speci men Type: BLOOD SPECIMENOrdering Facility: [facility] Address: [address] [place] [address] Result Comment: The CA 15-3 test methodology used is the Electrochemiluminescence Immunoassay by [employer]. Results obtained with different methods or kits cannot be used interchangeably. Performed By: #### 6 875-9 ####[facility] LABIA [id number] [address] STATES OF [facility] Cancer Ag27-29 SerPl-aCncon 08-01-2023 Cancer Ag 27-29 Qn 21.5 [arb'U]/mL Normal <38.6 [facility] Comment on above: Order Comment: Speci men Type: BLOOD SPECIMENOrdering Facility: [facility] Address: [address] [place] [address] Result Comment: The CA27.29 test was performed using the [employer] XP chemiluminometric immunoassay method. Results obtained with different assay methods or kits cannot be used interchangeably. Performed By: #### 1 7842-6 ####[facility] LABCLIA [id number] [address] OF [facility] Comprehensive metabolic 2000 panelOrdered By: Jessica De Souza on 08-01-2023 Albumin [Mass/Vol] 4.4 g/dL 3.9 - 4.9 g/dL [facility] ALP [Catalytic activity/Vol] 84 U/L 34 - 123 U/L [facility] ALT [Catalytic activity/Vol] 15 U/L 7 - 38 U/L [facility] Anion gap [Moles/Vol] 11 mmol/L 9 - 18 mmol/L [facility] AST [Catalytic activity/Vol] 19 U/L 13 - 35 U/L [facility] Bilirubin [Mass/Vol] 0.4 mg/dL 0.2 - 1.3 mg/dL [facility] Calcium [Mass/Vol] 10.7 mg/dL High 8.5 - 10.2 mg/dL [facility] Chloride [Moles/Vol] 104 mmol/L 97 - 105 mmol/L [facility] CO2 [Moles/Vol] 25 mmol/L 22 - 30 mmol/L [facility] Creatinine [Mass/Vol] 1.33 mg/dL High 0.58 - 0.96 mg/dL [facility] GFR/1.73 sq M.predicted among non-blacks MDRD (S/P/Bld) [Vol rate/Area] 43 mL/min/{1.73_m2} Low - PINF [facility] Comment on above: Estimated Glomerular Filtration Rate (eGFR) is calculated using the 2020 CKD-EPI creatinine equation. This equation utilizes serum creatinine, sex, and age as parameters. The creatinine assay has traceable calibration to isotope dilution-mass spectrometry. Refer to KDIGO guidelines for clinical interpretation. In patients with unstable renal function, e.g. those with acute kidney injury, the eGFR may not accurately reflect actual GFR. Glucose [Mass/Vol] 111 mg/dL High 74 - 99 mg/dL [facility] Comment on above: The [place] Diabete s Association (ADA) provides guidance for cutoff values for fasting glucose and random glucose. The ADA defines fasting as no caloric intake for at least 8 hours. Fasting plasma glucose results between 100 to 125 mg/dL indicate increased risk for diabetes (prediabetes). Fasting plasma glucose results greater than or equal to 126 mg/dL meet the criteria for diagnosis of diabetes. In the absence of unequivocal hyperglycemia, results should be confirmed by repeat testing. In a patient with classic symptoms of hyperglycemia or hyperglycemic crisis, random plasma glucose results greater than or equal to 200 mg/dL meet the criteria for diagnosis of diabetes. Reference: Standards of Medical Care in Diabetes 2016, [place] Diabetes Association. Diabetes Care. 2016.39(Suppl 1). Interpretation and review of laboratory results Abnormal [facility] Potassium [Moles/Vol] 4.4 mmol/L 3.7 - 5.1 mmol/L [facility] Protein [Mass/Vol] 7.1 g/dL 6.3 - 8.0 g/dL [facility] Sodium [Moles/Vol] 140 mmol/L 136 - 144 mmol/L [facility] Urea nitrogen [Mass/Vol] 17 mg/dL 7 - 21 mg/dL [facility] Comprehensive metabolic 2000 panelon 08-01-2023 Albumin [Mass/Vol] 4.4 g/dL Normal 3.9-4.9 [facility] Comment on above: Order Comment: Speci men Type: BLOOD SPECIMENOrdering Facility: [facility] Address: [facility] [place] [address] Performed By: #### 2 4323-8 ####[facility] LABCLIA [id number] [place] [address] ALP [Catalytic activity/Vol] 84 U/L Normal 34-123 [facility] Comment on above: Order Comment: Speci men Type: BLOOD SPECIMENOrdering Facility: [facility] Address: [address] [place] [address] Performed By: #### 2 4323-8 ####[facility] LABCLIA [id number] [place] [address] ALT [Catalytic activity/Vol] 15 U/L Normal 7-38 [facility] Comment on above: Order Comment: Speci men Type: BLOOD SPECIMENOrdering Facility: [facility] Address: [address] [place] [address] Performed By: #### 2 4323-8 ####[facility] LABCLIA [id number] [place] [address] Anion gap [Moles/Vol] 11 mmol/L Normal 9-18 [facility] Comment on above: Order Comment: Speci men Type: BLOOD SPECIMENOrdering Facility: [facility] Address: [address] [place] [address] Performed By: #### 2 4323-8 ####[facility] LABCLIA [id number] [place] [address] AST [Catalytic activity/Vol] 19 U/L Normal 13-35 [facility] Comment on above: Order Comment: Speci men Type: BLOOD SPECIMENOrdering Facility: [facility] Address: [address] [place] [address] Performed By: #### 2 4323-8 ####[facility] LABCLIA [id number] [place] [address] Bilirubin [Mass/Vol] 0.4 mg/dL Normal 0.2-1.3 [facility] Comment on above: Order Comment: Speci men Type: BLOOD SPECIMENOrdering Facility: [facility] Address: [address] [place] [address] Performed By: #### 2 4323-8 ####[facility] LABCLIA [id number] [place] [address] Calcium [Mass/Vol] 10.7 mg/dL High 8.5-10.2 [facility] Comment on above: Order Comment: Speci men Type: BLOOD SPECIMENOrdering Facility: [facility] Address: [address] [place] [address] Performed By: #### 2 4323-8 ####[facility] LABCLIA [id number] [place] [address] Chloride [Moles/Vol] 104 mmol/L Normal 97-105 [facility] Comment on above: Order Comment: Speci men Type: BLOOD SPECIMENOrdering Facility: [facility] Address: [address] [place] [address] Performed By: #### 2 4323-8 ####[facility] LABCLIA [id number] [place] [address] CO2 [Moles/Vol] 25 mmol/L Normal 22-30 [facility] Comment on above: Order Comment: Speci men Type: BLOOD SPECIMENOrdering Facility: [facility] Address: [address] [place] [address] Performed By: #### 2 4323-8 ####[facility] LABCLIA [id number] [place] [address] Creatinine [Mass/Vol] 1.33 mg/dL High 0.58-0.96 [facility] Comment on above: Order Comment: Speci men Type: BLOOD SPECIMENOrdering Facility: [facility] Address: [address] [place] [address] Performed By: #### 2 4323-8 ####[facility] LABCLIA [id number] [place] [address] Creatinine and Glomerular filtration rate.predicted panel (S/P/Bld) 43 mL/min/1.73m??? Low >=60 [facility] Comment on above: Order Comment: Satish schroeder Type: BLOOD SPECIMENOrdering Facility: [facility] Address: [address] [place] [address] Result Comment: Polina mated Glomerular Filtration Rate (eGFR) is calculated using the 2020 CKD-EPI creatinine equation. This equation utilizes serum creatinine, sex, and age as parameters. The creatinine assay has traceable calibration to isotope dilution-mass spectrometry. Refer to KDIGO guidelines for clinical interpretation. In patients with unstable renal function, e.g. those with acute kidney injury, the eGFR may not accurately reflect actual GFR. Performed By: #### 2 4323-8 ####[facility] LABCLIA [id number] [place] [address] Glucose [Mass/Vol] 111 mg/dL High 74-99 [facility] Comment on above: Order Comment: Satish schroeder Type: BLOOD SPECIMENOrdering Facility: [facility] Address: [address] [place] [address] Result Comment: The [place] Diabetes Association (ADA) provides guidance for cutoff values for fasting glucose and random glucose. The ADA defines fasting as no caloric intake for at least 8 hours. Fasting plasma glucose results between 100 to 125 mg/dL indicate increased risk for diabetes (prediabetes).Fasting plasma glucose results greater than or equal to 126 mg/dL meet the criteria for diagnosis of diabetes. In the absence of unequivocal hyperglycemia, results should be confirmed by repeat testing. In a patient with classic symptoms of hyperglycemia or hyperglycemic crisis, random plasma glucose results greater than or equal to 200 mg/dL meet the criteria for diagnosis of diabetes.Reference: Standards of Medical Care in Diabetes 2016, [place] Diabetes Association. Diabetes Care. 2016.39(Suppl 1). Performed By: #### 2 4323-8 ####[facility] LABCLIA [id number] [place] [address] Potassium [Moles/Vol] 4.4 mmol/L Normal 3.7-5.1 [facility] Comment on above: Order Comment: Satish schroeder Type: BLOOD SPECIMENOrdering Facility: [facility] Address: [address] [id number] Performed By: #### 2 4323-8 ####[facility] LABCLIA [id number] [place] [address] Protein [Mass/Vol] 7.1 g/dL Normal 6.3-8.0 [facility] Comment on above: Order Comment: Speci men Type: BLOOD SPECIMENOrdering Facility: [facility] Address: [address] [place] [address] Performed By: #### 2 4323-8 ####[facility] LABCLIA [id number] [place] [address] Sodium [Moles/Vol] 140 mmol/L Normal 136-144 [facility] Comment on above: Order Comment: Speci men Type: BLOOD SPECIMENOrdering Facility: [facility] Address: [address] [place] [address] Performed By: #### 2 4323-8 ####[facility] LABCLIA [id number] [place] [address] Urea nitrogen [Mass/Vol] 17 mg/dL Normal 7-21 [facility] Comment on above: Order Comment: Speci men Type: BLOOD SPECIMENOrdering Facility: [facility] Address: [address] [place] [address] Performed By: #### 2 4323-8 ####[facility] LABCLIA [id number] [place] [address] Lab Reportson 07-14-2023 Lab Reports [id number] IFF Normal [facility] Lab Reports [id number] IFF Normal [facility] Ambulatory Visit Summaryon 0 07-05-2023 Ambulatory Visit Summary TIMA CORTESCHANTEL Beasley :1955 Visit Date:07/05/2023 Ambulatory Visit Instructions Your Diagnosis Annual visit for general adult medical examination without abnormal findings Type 2 diabetes mellitus with hyperlipidemia Mixed hyperlipidemia HTN (hypertension), benign Malignant neoplasm of female breast Immunodeficiency due to drugs BMI 40.0-44.9, adult Class 3 obesity Your Care Team Attending Physician - Nate Bobby MD. Primary Care Physician - Nate Bobby MD This Is Your Medications [place] [facility] [place] (Michael Barboza, 5 years.) abemaciclib (Verzenio 50 mg oral tablet) amlodipine (amLODIPine 10 mg Tab) anastrozole (anastrozole 1 mg Tab) atorvastatin (atorvastatin 40 mg Tab) budesonide-formoterol (Symbicort 160/4.5 inhalation aerosol with adapter) carvedilol (carvedilol 25 mg Tab) celecoxib (CeleBREX 100 mg Cap) fluticasone nasal (Flonase) levothyroxine (levothyroxine 50 mcg (0.05 mg) Tab) loperamide loratadine (loratadine 10 mg Tab) metformin (metformin 1000 mg Tab) multivitamin with minerals (Centrum Silver) naproxen (Aleve) ondansetron (ondansetron 8 mg Dis Tab) prochlorperazine (prochlorperazine 10 mg Tab) ropinirole (ropinirole 0.25 mg Tab) triamcinolone topical (triamcinolone Top 0.1% Crm 15 gram) Procedures Performed Appendectomy, Arthroscopic knee operation, Lymphadenectomy, Reverse shoulder replacement, Shoulder, Tubal ligation. Discharge Vitals Heart Rate (Peripheral) 75 Respiratory Rate 16 Blood Pressure 136/72 Height 156 cm Height 61 in Weight 99.9 kg Weight 219.78 lb BMI 41.05 What to do next Scheduled Follow-Up Appointments Tuesday 10:00 AM EDT With: Nate Bobby MD Where: [facility] [place] [address] [place] [address]- \.br\ You Need to Complete the Following\.br\ Microalbumin Level Urine, Urine, Routine collect, 07/05/23, Order for future visit, Nurse collect, Type 2 diabetes mellitus with hyperlipidemia, Not Required, Print Label By Order Location\.br\ U Protein/Creat Ratio, Urine, Routine collect, 07/05/23, Order for future visit, Nurse collect, Type 2 diabetes mellitus with hyperlipidemia, Not Required, Print Label By Order Location\.br\ Someone Will Contact You Regarding These Appointments\.br\ [facility] [place], Other (needs to be filled in), Diabetic Education, Diabetes Education Referral, Patient requesting [facility] or whatever is closer. She lives in [place]., 07/05/23 10:05:00 EDT, Type 2 diabetes mellitus with hyperlipidemia\.b r\ Medications\.br\ What How Much When Why Instructions\.br\ Unchanged abemaciclib (Verzenio 50 mg oral tablet) 1 Tablets By Mouth 2 times a day\.br\ Unchanged amlodipine (amLODIPine 10 mg Tab) See instructions TAKE 1 TABLET BY MOUTH EVERY DAY \.br\ Unchanged anastrozole (anastrozole 1 mg Tab) 1 Tablets By Mouth Every day\.br\ Unchanged atorvastatin (atorvastatin 40 mg Tab) See instructions TAKE 1 TABLET BY MOUTH EVERY DAY \.br\ Unchanged budesonide-formot edgar (Symbicort 160/ 4.5 inhalation aerosol with adapter) 2 Puffs Inhalation 2 times a day Immunodeficiency due to drugs Malignant neoplasm of female breast BMI 40.0-44.9, adult Class 3 obesity URI due to influenza Nonsmoker\.br\ Unchanged carvedilol (carvedilol 25 mg Tab) See instructions TAKE 1 TABLET BY MOUTH TWICE A DAY \.br\ Unchanged celecoxib (CeleBREX 100 mg Cap) 1 Capsules By Mouth 2 times a day\.br\ Unchanged fluticasone nasal (Flonase) Every day Patient states she takes this BID \.br\ Unchanged levothyroxine (levothyroxine 50 mcg (0.05 mg) Tab) See instructions TAKE 1 TABLET BY MOUTH EVERY DAY \.br\ Unchanged loperamide 2 Milligram By Mouth as needed diarrhea \.br\ Unchanged loratadine (loratadine 10 mg Tab) See instructions TAKE 1 TABLET BY MOUTH EVERY DAY \.br\ Unchanged metformin (metformin 1000 mg Tab) See instructions TAKE 1 TABLET BY MOUTH TWICE A DAY \.br\ Unchanged Misc Prescription (Handicap Placard, 5 years.) See instructions HTN (hypertension), benign Type 2 diabetes mellitus with hyperlipidemia Mixed hyperlipidemia Immunodeficiency due to drugs Osteoarthritis Malignant neoplasm of female breast, unspecified estrogen receptor status, unspecified laterality, unspecified site of breast BMI 40.0-44.9, adult Class 3 obesity Reactive airway disease Seasonal allergies Handicap Jabari, 5 years. \.br\ Unchanged multivitamin with minerals (Centrum Silver) By Mouth Every day\.br\ Unchanged naproxen (Aleve) By Mouth Every 12 hours as needed \.br\ Unchanged ondansetron (ondansetron 8 mg Dis Tab) See instructions use as needed for nausea \.br\ Unchanged prochlorperazine (prochlorperazine 10 mg Tab) See instructions take as needed for nausea \.br\ Unchanged ropinirole (ropinirole 0.25 mg Tab) See instructions TAKE 1 TABLET BY MOUTH EVERY DAY \.br\ Unchanged triamcinolone topical (triamcinolone Top 0.1% Crm 15 gram) 1 Application Topical 3 times a day Vaginal yeast infection Folliculitis Class 3 severe obesity due to excess calories with body mass index (BMI) of 40.0 to 44.9 in adult Body mass index [BMI] 40.0-44.9, adult Nonsmoker\.br\ Allergies\.br\ No Known Allergies\.br\ Problems\.br\ Ongoing - Any problem that you are currently receiving treatment for.\.br\ Acute URI\.br\ BMI 40.0-44.9, adult\.br\ Class 3 obesity\.br\ Folliculitis\.br\ Hair loss\.br\ HTN (hypertension), benign\.br\ Immunodeficiency due to drugs\.br\ Knee pain, right\.br\ Malignant neoplasm of female breast\.br\ Mixed hyperlipidemia\.b r\ Non-smoker\.br\ Osteoarthritis\.b r\ Osteopenia\.br\ Reactive airway disease\.br\ RLS (restless legs syndrome)\.br\ Seasonal allergies\.br\ Type 2 diabetes mellitus with hyperlipidemia\.b r\ Vaginal yeast infection\.br\ Patient Survey\.br\ You may receive a survey via text or e-mail asking about your office visit. Please share your experience with us by completing your survey. We appreciate your feedback and thank you for choosing us for your care.\.br\ Education Materials\.br\ Fat and Cholesterol Restricted Eating Plan\.br\ Eating a diet that limits fat and cholesterol may help lower your risk for heart disease and other conditions. Your body needs fat and cholesterol for basic functions, but eating too much of these things can be harmful to your health.\.br\ Your health care provider may order lab tests to check your blood fat (lipid) and cholesterol levels. This helps your health care provider understand your risk for certain conditions and whether you need to make diet changes. Work with your health care provider or dietitian to make an eating plan that is right for you.\.br\ Your plan includes:\.br\ ? \.br\ Limit your fat intake to % or less of your total calories a day. This is g of fat per day.\.br\ ? \.br\ Limit your saturated fat intake to % or less of your total calories a day. This is g of saturated fat per day.\.br\ ? \.br\ Limit the amount of cholesterol in your diet to less than mg a day.\.br\ ? \.br\ Eat g of fiber a day.\.br\ What are tips for following this plan?\.br\ General guidelines\.br\ ? \.br\ If you are overweight, work with your health care provider to lose weight safely. Losing just 5?10% of your body weight can improve your overall health and help prevent diseases such as diabetes and heart disease.\.br\ ? \.br\ Avoid:\.br\ ? \.br\ Foods with added sugar.\.br\ ? \.br\ Fried foods.\.br\ ? \.br\ Foods that contain partially hydrogenated oils, including stick margarine, some tub margarines, cookies, crackers, and other baked goods.\.br\ ? \.br\ If you drink alcohol:\.br\ ? \.br\ Limit how much you have to:\.br\ ? \.br\ 0?1 drink a day for women who are not .\.br\ ? \.br\ 0?2 drinks a day for men.\.br\ ? \.br\ Know how much alcohol is in a drink. In the [place] one drink equals one 12 oz bottle of beer (355 mL), one 5 oz glass of wine (148 mL), or one 1? oz glass of hard liquor (44 mL).\.br\ Reading food labels\.br\ ? \.br\ Check food labels for:\.br\ ? \.br\ Trans fats or partially hydrogenated oils. Avoid foods that contain these.\.br\ ? \.br\ High amounts of saturated fat. Choose foods that are low in saturated fat (less than 2 g).\.br\ ? \.br\ The amount of cholesterol in each serving.\.br\ ? \.br\ The amount of fiber in each serving.\.br\ ? \.br\ Choose foods with healthy fats, such as:\.br\ ? \.br\ Monounsaturated and polyunsaturated fats. These include olive and canola oil, flaxseeds, walnuts, almonds, and seeds.\.br\ ? \.br\ Tabiona-3 fats. These are found in foods such as salmon, mackerel, sardines, tuna, flaxseed oil, and ground flaxseeds.\.br\ ? \.br\ Choose grain products that have whole grains. Look for the word whole as the first word in the ingredient list.\.br\ Cooking\.br\ ? \.br\ Cook foods using methods other than frying. Baking, boiling, grilling, and broiling are some healthy options.\.br\ ? \.br\ Eat more home-cooked food and less restaurant, buffet, and fast food.\.br\ ? \.br\ Avoid cooking using saturated fats.\.br\ ? \.br\ Animal sources of saturated fats include meats, butter, and cream.\.br\ ? \.br\ Plant sources of saturated fats include palm oil, palm kernel oil, and coconut oil.\.br\ Meal [facility] Auth for Release of Medical Recordson 07-05-2023 Auth for Release of Medical Records [id number] IFF Normal [facility] CNOVSPon 07-05-2023 CNOVSP Normal [facility] Office/Clini c Noteon 07-05-2023 Family Medicine Office/Clinic Note Chief Complaint Medicare Wellness Visit Subsequent History of Present Illness Covid-19, MERS, Ebola Screen *Contact With Person With Highly Contagious Disease Like Ebola/MERS/COVID-19 AND Have One or More of the Symptoms Below : No *Travel to a Country With Wide-Spread Ebola/MERS/COVID-19 in the Past 21 Days AND Have One or More of the Symptoms Below : No Patient Reported Covid-19 Testing : No *Verify Droplet, Contact Precautions for Ebola (Reference for CDC) : N/A *Verify Airborne, Droplet Precautions for MERS/COVID-19 : N/A Santa Wright LPN Ramos 07/05/2023 9:03 EDT Medicare/Medicaid Summary Systolic Blood Pressure : 136 mmHg Diastolic Blood Pressure : 72 mmHg Peripheral Pulse Rate : 75 bpm Respiratory Rate : 16 br/min SpO2 : 94 % Riki Wrihgt LPNmarciano Beasley 07/05/2023 9:46 EDT Height/Length Measured : 156 cm(Converted to: 5 ft 1 in, 61.42 in) Weight Measured : 99.9 kg(Converted to: 220 lb 4 Ounces, 220.242 lb) Body Mass Index Measured : 41.05 kg/m2 Height in Inches : 61 in Weight in Pounds : 219.78 lb Santa Wright LPN Ramos 07/05/2023 9:12 EDT Chief Complaint : Medicare Wellness Visit Subsequent Patient Counseled : Nutrition, Physical activity, Elevated BMI Blood Pressure Location : Right arm Blood Pressure Position : Sitting O2 Sat Resting/Exertion Alpha : Resting Pain Present : No actual or suspected pain Wright SRISanta Ramos Rhodes 07/05/2023 9:03 EDT Hearing and Vision Screening FT Vision Screen Comments : Wears corrective lenses, sees [facility] for yearly DM eye exams. Kyle SRI Santa L - 07/05/2023 9:12 EDT FT Whisper Test Comments : No deficits noted. Wright SRI Santa L 07/05/2023 9:03 EDT Advance Directive FT Patient Wishes to Receive Further Information on Advance Directives : No Organ Donation Consent : Yes Wright SRI Satnabirdie Rhodes 07/05/2023 9:12 EDT Advance Directive : Yes Kyle FIERRO Santa L 07/05/2023 9:03 EDT Procedures / Surgeries FT - Procedure History (As Of: 07/05/2023 10:12:32 EDT) Anesthesia Minutes: 0 ; Procedure Name: Appendectomy ; Procedure Minutes: 0 ; Last Reviewed Dt/Tm: 07/05/2023 09:24:37 EDT Anesthesia Minutes: 0 ; Procedure Name: Tubal ligation ; Procedure Minutes: 0 ; Last Reviewed Dt/Tm: 07/05/2023 09:24:37 EDT Anesthesia Minutes: 0 ; Procedure Name: Arthroscopic knee operation ; Procedure Minutes: 0 ; Last Reviewed Dt/Tm: 07/05/2023 09:24:37 EDT Anesthesia Minutes: 0 ; Procedure Name: Reverse shoulder replacement ; Procedure Minutes: 0 ; Last Reviewed Dt/Tm: 07/05/2023 09:24:37 EDT Anesthesia Minutes: 0 ; Procedure Name: Shoulder ; Procedure Minutes: 0 ; Comments: 05/03/2022 11:00 DIANNA Paredesshilpi Shortyjohn A torn ligament in right shoulder ; Last Reviewed Dt/Tm: 07/05/2023 09:24:37 EDT Anesthesia Minutes: 0 ; Procedure Name: Lymphadenectomy ; Procedure Minutes: 0 ; Comments: 05/03/2022 11:02 DIANNA - LenaJocelin dobbins A breast ; Last Reviewed Dt/Tm: 07/05/2023 09:24:37 EDT Family History Family History (As Of: 07/05/2023 10:12:32 EDT) Father: Relation: Father ; Gender: Male ; Nomenclature: Acute myocardial infarction ; Value: Positive Mother: Relation: Mother ; Gender: Female ; Nomenclature: Primary malignant neoplasm of lung ; Value: Positive Brother: Relation: Brother ; Gender: Male ; Nomenclature: Primary malignant neoplasm of brain ; Value: Positive Aunt: Relation: Aunt ; Nomenclature: Acute myocardial infarction ; Value: Positive Grandparent: Relation: Grandparent ; Nomenclature: Acute myocardial infarction ; Value: Positive Medicare/Medicaid Social History FT Social History (As Of: 07/05/2023 10:12:32 EDT) Alcohol: Low Risk Current, Wine, 1-2 times per month, 1 drinks/episode average. 2.00 drinks/episode maximum. Previous treatment: None. Alcohol use interferes with work or home: No. Drinks more than intended: No. Others hurt by drinking: No. Ready to change: No. Household alcohol concerns: No. (Last Updated: 07/05/2023 09:21:24 EDT by Santa Wright LPN) Tobacco: Denies Tobacco Use Never (less than 100 in lifetime) Tobacco Use:. Never Smokeless Tobacco Use:. Household tobacco concerns: No. (Last Updated: 06/09/2023 13:18:48 EDT by Alejandra Bradley LPN) Substance Abuse: Denies Substance Abuse (Last Updated: 07/05/2023 09:21:27 EDT by Santa Wright LPN ) Health Risk Assessment FT HRA little interest or pleasure? : Yes Santa Wright LPN - 07/05/2023 10:09 EDT HRA down, depressed, or hopeless? : No Hazards in your house? : No Fall Risk Past Year : No Worried About Falling : No Use a Cane or Walker? : No Someone Helps You in the Morning : No Fallen or felt dizzy standing up? : No Assistance with personal care? : No Trouble taking meds correctly? : No HRA Pain Present : No Able to walk without help? : Yes Ability to shop w/out help : Yes Prepare your own meals? : Yes Housework without help? : Yes Handle money without help : Yes Track own medications (more content not included)... [facility] Comment on above: Result Comment: Elec tronically Signed By: Nate Bobby MD\.br\Date and Time Signed: 07/05/23 11:28 EDT\.br\Electronically Co-Signed By: Santa Wright LPN\.br\Date and Time Co-Signed: 07/05/23 10:33 EDT Outside Diabetes Eye Examon 07-05-2023 Outside Diabetes Eye Exam [id number] IFF [facility] Patient Educationon 07-05-19 24 Patient Education Endocrinology Diabetes Mellitus and Nutrition, Adult When you have diabetes, or diabetes mellitus, it is very important to have healthy eating habits because your blood sugar (glucose) levels are greatly affected by what you eat and drink. Eating healthy foods in the right amounts, at about the same times every day, can help you: ? Manage your blood glucose. ? Lower your risk of heart disease. ? Improve your blood pressure. ? Reach or maintain a healthy weight. What can affect my meal plan? Every person with diabetes is different, and each person has different needs for a meal plan. Your health care provider may recommend that you work with a dietitian to make a meal plan that is best for you. Your meal plan may vary depending on factors such as: ? The calories you need. ? The medicines you take. ? Your weight. ? Your blood glucose, blood pressure, and cholesterol levels. ? Your activity level. ? Other health conditions you have, such as heart or kidney disease. How do carbohydrates affect me? Carbohydrates, also called carbs, affect your blood glucose level more than any other type of food. Eating carbs raises the amount of glucose in your blood. It is important to know how many carbs you can safely have in each meal. This is different for every person. Your dietitian can help you calculate how many carbs you should have at each meal and for each snack. How does alcohol affect me? Alcohol can cause a decrease in blood glucose (hypoglycemia), especially if you use insulin or take certain diabetes medicines by mouth. Hypoglycemia can be a life-threatening condition. Symptoms of hypoglycemia, such as sleepiness, dizziness, and confusion, are similar to symptoms of having too much alcohol. ? Do not drink alcohol if: ? Your health care provider tells you not to drink. ? You are , may be , or are planning to become . ? If you drink alcohol: ? Limit how much you have to: ? 0?1 drink a day for women. ? 0?2 drinks a day for men. ? Know how much alcohol is in your drink. In the [place] one drink equals one 12 oz bottle of beer (355 mL), one 5 oz glass of wine (148 mL), or one 1? oz glass of hard liquor (44 mL). ? Keep yourself hydrated with water, diet soda, or unsweetened iced tea. Keep in mind that regular soda, juice, and other mixers may contain a lot of sugar and must be counted as carbs. What are tips for following this plan? Reading food labels ? Start by checking the serving size on the Nutrition Facts label of packaged foods and drinks. The number of calories and the amount of carbs, fats, and other nutrients listed on the label are based on one serving of the item. Many items contain more than one serving per package. ? Check the total grams (g) of carbs in one serving. ? Check the number of grams of saturated fats and trans fats in one serving. Choose foods that have a low amount or none of these fats. ? Check the number of milligrams (mg) of salt (sodium) in one serving. Most people should limit total sodium intake to less than 2,300 mg per day. ? Always check the nutrition information of foods labeled as low-fat or nonfat. These foods may be higher in added sugar or refined carbs and should be avoided. ? Talk to your dietitian to identify your daily goals for nutrients listed on the label. Shopping ? Avoid buying canned, pre-made, or processed foods. These foods tend to be high in fat, sodium, and added sugar. ? Shop around the outside edge of the grocery store. This is where you will most often find fresh fruits and vegetables, bulk grains, fresh meats, and fresh dairy products. Cooking ? Use low-heat cooking methods, such as baking, instead of high-heat cooking methods, such as deep frying. ? Cook using healthy oils, such as olive, canola, or sunflower oil. ? Avoid cooking with butter, cream, or high-fat meats. Meal planning ? Eat meals and snacks regularly, preferably at the same times every day. Avoid going long periods of time without eating. ? Eat foods that are high in fiber, such as fresh fruits, vegetables, beans, and whole grains. ? Eat 4?6 oz (112?168 g) of lean protein each day, such as lean meat, chicken, fish, eggs, or tofu. One ounce (oz) (28 g) of lean protein is equal to: ? 1 oz (28 g) of meat, chicken, or fish. ? 1 egg. ? ? cup (62 g) of tofu. ? Eat some foods each day that contain healthy fats, such as avocado, nuts, seeds, and fish. What foods should I eat? Fruits Berries. Apples. Oranges. Peaches. Apricots. Plums. Grapes. Mangoes. Papayas. Pomegranates. Kiwi. Cherries. Vegetables Leafy greens, including lettuce, spinach, kale, chard, odette greens, mustard greens, and cabbage. Beets. Cauliflower. Broccoli. Carrots. Green beans. Tomatoes. Peppers. Onions. Cucumbers. [place] sprouts. Grains Whole grains, such as whole-wheat or whole-grain bread, crackers, tortillas, cereal, and pasta. Unsweetened oatmeal. (more content not included)... Normal [facility] Physician Referralon 024 Physician Referral [id number] IFF Normal [facility] CA 27.29 BLOODon 06-29-2023 Cancer Ag 27-29 Qn 24.6 [arb'U]/mL NINF - 38.6 U/mL [facility] Comment on above: The CA27.29 test was performed using the Siemens Portable Internetaur XP chemiluminometric immunoassay method. Results obtained with different assay methods or kits cannot be used interchangeably. CBC W Auto Differential pane l (Bld)on 06-29-2023 Basophils (Bld) [#/Vol] [facility] Basophils/100 WBC (Bld) 0.4 % [facility] Differential cell count method Nom (Bld) Auto [facility] Eosinophils (Bld) [#/Vol] 0.12 10*3/uL [facility] Eosinophils/100 WBC (Bld) 2.3 % [facility] Erythrocyte distribution width (RBC) [Ratio] 15.2 % High 11.5 - 15.0 % [facility] Hematocrit (Bld) [Volume fraction] 34.1 % Low 36.0 - 46.0 % [facility] Hemoglobin (Bld) [Mass/Vol] 11.4 g/dL Low 11.5 - 15.5 g/dL [facility] Immature granulocytes (Bld) [#/Vol] 0.04 10*3/uL [facility] Immature granulocytes/100 WBC (Bld) 0.8 % [facility] Interpretation and review of laboratory results Abnormal [facility] Lymphocytes (Bld) [#/Vol] 0.92 10*3/uL Low [facility] Lymphocytes/100 WBC (Bld) 17.5 % [facility] MCH (RBC) [Entitic mass] 33.4 pg 26.0 - 34.[address] [facility] MCHC (RBC) [Mass/Vol] 33.4 g/dL 30.5 - 36.0 g/dL [facility] MCV (RBC) [Entitic vol] 100.0 fL 80.0 - 100.[address] [facility] Monocytes (Bld) [#/Vol] 0.47 10*3/uL [facility] Monocytes/100 WBC (Bld) 8.9 % [facility] Neutrophils (Bld) [#/Vol] 3.69 10*3/uL [facility] Neutrophils/100 WBC (Bld) 70.1 % [facility] Nucleated RBC (Bld) [#/Vol] NINF [facility] Nucleated RBC/100 WBC (Bld) [Ratio] 0.0 % /[address] [facility] Platelet mean volume (Bld) [Entitic vol] 9.7 fL 9.0 - 12.[address] [facility] Platelets (Bld) [#/Vol] 203 10*3/uL [facility] RBC (Bld) [#/Vol] 3.41 10*6/uL Low 3.90 - 5.20 m/uL [facility] WBC (Bld) [#/Vol] 5.26 10*3/uL [facility] Basophils (Bld) [#/Vol] 10*3/uL Normal <0.11 [facility] Comment on above: Order Comment: Speci men Type: BLOOD SPECIMENOrdering Facility: [facility] Address: [address] [place] [address] Performed By: #### 5 7021-8 ####[facility] LABCLIA [id number] [place] [address] Basophils/100 WBC (Bld) 0.4 % Normal [facility] Comment on above: Order Comment: Speci men Type: BLOOD SPECIMENOrdering Facility: [facility] Address: [address] [place] [address] Performed By: #### 5 7021-8 ####[facility] LABCLIA [id number] [place] [address] Differential cell count method Nom (Bld) Auto Normal [facility] Comment on above: Order Comment: Speci men Type: BLOOD SPECIMENOrdering Facility: [facility] Address: [address] [place] [address] Performed By: #### 5 7021-8 ####[facility] LABCLIA [id number] [place] [address] Eosinophils (Bld) [#/Vol] 0.12 10*3/uL Normal <0.46 [facility] Comment on above: Order Comment: Speci men Type: BLOOD SPECIMENOrdering Facility: [facility] Address: [address] [place] [address] Performed By: #### 5 7021-8 ####[facility] LABCLIA [id number] [place] [address] Eosinophils/100 WBC (Bld) 2.3 % Normal [facility] Comment on above: Order Comment: Speci men Type: BLOOD SPECIMENOrdering Facility: [facility] Address: [address] [place] [address] Performed By: #### 5 7021-8 ####[facility] LABCLIA [id number] [place] [address] Erythrocyte distribution width (RBC) [Ratio] 15.2 % High 11.5-15.0 [facility] Comment on above: Order Comment: Speci men Type: BLOOD SPECIMENOrdering Facility: [facility] Address: [address] [place] [address] Performed By: #### 5 7021-8 ####[facility] LABCLIA [id number] [place] [address] Hematocrit (Bld) [Volume fraction] 34.1 % Low 36.0-46.0 [facility] Comment on above: Order Comment: Speci men Type: BLOOD SPECIMENOrdering Facility: [facility] Address: [address] [place] [address] Performed By: #### 5 7021-8 ####[facility] LABCLIA [id number] [place] [address] Hemoglobin (Bld) [Mass/Vol] 11.4 g/dL Low 11.5-15.5 [facility] Comment on above: Order Comment: Speci men Type: BLOOD SPECIMENOrdering Facility: [facility] Address: [address] [place] [address] Performed By: #### 5 7021-8 ####[facility] LABCLIA [id number] [place] [address] Immature granulocytes (Bld) [#/Vol] 0.04 10*3/uL Normal <0.10 [facility] Comment on above: Order Comment: Speci men Type: BLOOD SPECIMENOrdering Facility: [facility] Address: [address] [place] [address] Performed By: #### 5 7021-8 ####[facility] LABCLIA [id number] [place] [address] Immature granulocytes/100 WBC (Bld) 0.8 % Normal [facility] Comment on above: Order Comment: Speci men Type: BLOOD SPECIMENOrdering Facility: [facility] Address: [address] [place] [address] Performed By: #### 5 7021-8 ####[facility] LABCLIA [id number] [place] [address] Lymphocytes (Bld) [#/Vol] 0.92 10*3/uL Low 1.00-4.00 [facility] Comment on above: Order Comment: Speci men Type: BLOOD SPECIMENOrdering Facility: [facility] Address: [address] [place] [address] Performed By: #### 5 7021-8 ####[facility] LABCLIA [id number] [place] [address] Lymphocytes/100 WBC (Bld) 17.5 % Normal [facility] Comment on above: Order Comment: Speci men Type: BLOOD SPECIMENOrdering Facility: [facility] Address: [address] [place] [address] Performed By: #### 5 7021-8 ####[facility] LABCLIA [id number] [place] [address] MCH (RBC) [Entitic mass] 33.4 pg Normal 26.0-34.0 [facility] Comment on above: Order Comment: Speci men Type: BLOOD SPECIMENOrdering Facility: [facility] Address: [address] [place] [address] Performed By: #### 5 7021-8 ####[facility] LABCLIA [id number] [place] [address] MCHC (RBC) [Mass/Vol] 33.4 g/dL Normal 30.5-36.0 [facility] Comment on above: Order Comment: Speci men Type: BLOOD SPECIMENOrdering Facility: [facility] Address: [address] [place] [address] Performed By: #### 5 7021-8 ####[facility] LABCLIA [id number] [place] [address] MCV (RBC) [Entitic vol] 100.0 fL Normal 80.0-100.0 [facility] Comment on above: Order Comment: Speci men Type: BLOOD SPECIMENOrdering Facility: [facility] Address: [address] [place] [address] Performed By: #### 5 7021-8 ####[facility] LABCLIA [id number] [place] [address] Monocytes (Bld) [#/Vol] 0.47 10*3/uL Normal <0.87 [facility] Comment on above: Order Comment: Speci men Type: BLOOD SPECIMENOrdering Facility: [facility] Address: [address] [place] [address] Performed By: #### 5 7021-8 ####[facility] LABCLIA [id number] [place] [address] Monocytes/100 WBC (Bld) 8.9 % Normal [facility] Comment on above: Order Comment: Speci men Type: BLOOD SPECIMENOrdering Facility: [facility] Address: [address] [place] [address] Performed By: #### 5 7021-8 ####[facility] LABCLIA [id number] [place] [address] Neutrophils (Bld) [#/Vol] 3.69 10*3/uL Normal 1.45-7.50 [facility] Comment on above: Order Comment: Speci men Type: BLOOD SPECIMENOrdering Facility: [facility] Address: [address] [place] [address] Performed By: #### 5 7021-8 ####[facility] LABIA [id number] [place] [address] Neutrophils/100 WBC (Bld) 70.1 % Normal [facility] Comment on above: Order Comment: Speci men Type: BLOOD SPECIMENOrdering Facility: [facility] Address: [address] [place] [address] Performed By: #### 5 7021-8 ####[facility] LABCLIA [id number] [place] [address] Nucleated RBC (Bld) [#/Vol] 10*3/uL Normal <0.01 [facility] Comment on above: Order Comment: Speci men Type: BLOOD SPECIMENOrdering Facility: [facility] Address: [address] [place] [address] Performed By: #### 5 7021-8 ####[facility] LABIA [id number] [place] [address] Nucleated RBC/100 WBC (Bld) [Ratio] 0.0 /100 WBC Normal [facility] Comment on above: Order Comment: Speci men Type: BLOOD SPECIMENOrdering Facility: [facility] Address: [address] [place] [address] Performed By: #### 5 7021-8 ####[facility] LABCLIA [id number] [place] [address] Platelet mean volume (Bld) [Entitic vol] 9.7 fL Normal 9.0-12.7 [facility] Comment on above: Order Comment: Speci men Type: BLOOD SPECIMENOrdering Facility: [facility] Address: [address] [place] [address] Performed By: #### 5 7021-8 ####[facility] LABCLIA [id number] [place] [address] Platelets (Bld) [#/Vol] 203 10*3/uL Normal 150-400 [facility] Comment on above: Order Comment: Speci men Type: BLOOD SPECIMENOrdering Facility: [facility] Address: [address] [place] [address] Performed By: #### 5 7021-8 ####[facility] LABCLIA [id number] [place] [address] RBC (Bld) [#/Vol] 3.41 10*6/uL Low 3.90-5.20 [facility] Comment on above: Order Comment: Speci men Type: BLOOD SPECIMENOrdering Facility: [facility] Address: [address] [place] [address] Performed By: #### 5 7021-8 ####[facility] LABCLIA [id number] [place] [address] WBC (Bld) [#/Vol] 5.26 10*3/uL Normal 3.70-11.00 [facility] Comment on above: Order Comment: Speci men Type: BLOOD SPECIMENOrdering Facility: [facility] Address: [address] [place] [address] Performed By: #### 5 7021-8 ####[facility] LABCLIA [id number] [place] [address] Cancer Ag 27-29 Qnon 024 Interpretation and review of laboratory results Normal [facility] Cancer Ag15-3 SerPl-aCncon 0 06-29-2023 Cancer Ag 15-3 Qn 21.1 U/mL Normal <26.0 [facility] Comment on above: Order Comment: Speci men Type: BLOOD SPECIMENOrdering Facility: [facility] Address: [address] [place] [address] Result Comment: The CA 15-3 test methodology used is the Electrochemiluminescence Immunoassay by [employer]. Results obtained with different methods or kits cannot be used interchangeably. Performed By: #### 6 875-9 ####[facility] LABCLIA [id number] [address] OF [facility] Cancer Ag27-29 SerPl-aCncon 06-29-2023 Cancer Ag 27-29 Qn 24.6 [arb'U]/mL Normal <38.6 [facility] Comment on above: Order Comment: Speci men Type: BLOOD SPECIMENOrdering Facility: [facility] Address: [address] [place] [address] Result Comment: The CA27.29 test was performed using the Siemens Portable Internetaur XP chemiluminometric immunoassay method. Results obtained with different assay methods or kits cannot be used interchangeably. Performed By: #### 1 7842-6 ####[facility] LABIA [id number] [address] OF [facility] Comprehensive metabolic 2000 panelOrdered By: Krzysztof Ramirez on 06-29-2023 Albumin [Mass/Vol] 4.3 g/dL 3.9 - 4.9 g/dL [facility] ALP [Catalytic activity/Vol] 80 U/L 34 - 123 U/L [facility] ALT [Catalytic activity/Vol] 17 U/L 7 - 38 U/L [facility] Anion gap [Moles/Vol] 9 mmol/L 9 - 18 mmol/L [facility] AST [Catalytic activity/Vol] 20 U/L 13 - 35 U/L [facility] Bilirubin [Mass/Vol] 0.3 mg/dL 0.2 - 1.3 mg/dL [facility] Calcium [Mass/Vol] 10.0 mg/dL 8.5 - 10.2 mg/dL [facility] Chloride [Moles/Vol] 107 mmol/L High 97 - 105 mmol/L [facility] CO2 [Moles/Vol] 26 mmol/L 22 - 30 mmol/L [facility] Creatinine [Mass/Vol] 0.91 mg/dL 0.58 - 0.96 mg/dL [facility] GFR/1.73 sq M.predicted among non-blacks MDRD (S/P/Bld) [Vol rate/Area] 68 mL/min/{1.73_m2} - PINF [facility] Comment on above: Estimated Glomerular Filtration Rate (eGFR) is calculated using the 2020 CKD-EPI creatinine equation. This equation utilizes serum creatinine, sex, and age as parameters. The creatinine assay has traceable calibration to isotope dilution-mass spectrometry. Refer to KDIGO guidelines for clinical interpretation. In patients with unstable renal function, e.g. those with acute kidney injury, the eGFR may not accurately reflect actual GFR. Glucose [Mass/Vol] 141 mg/dL High 74 - 99 mg/dL [facility] Comment on above: The [place] Diabete s Association (ADA) provides guidance for cutoff values for fasting glucose and random glucose. The ADA defines fasting as no caloric intake for at least 8 hours. Fasting plasma glucose results between 100 to 125 mg/dL indicate increased risk for diabetes (prediabetes). Fasting plasma glucose results greater than or equal to 126 mg/dL meet the criteria for diagnosis of diabetes. In the absence of unequivocal hyperglycemia, results should be confirmed by repeat testing. In a patient with classic symptoms of hyperglycemia or hyperglycemic crisis, random plasma glucose results greater than or equal to 200 mg/dL meet the criteria for diagnosis of diabetes. Reference: Standards of Medical Care in Diabetes 2016, [place] Diabetes Association. Diabetes Care. 2016.39(Suppl 1). Interpretation and review of laboratory results Abnormal [facility] Potassium [Moles/Vol] 3.9 mmol/L 3.7 - 5.1 mmol/L [facility] Protein [Mass/Vol] 6.8 g/dL 6.3 - 8.0 g/dL Cl [facility] Sodium [Moles/Vol] 142 mmol/L 136 - 144 mmol/L [facility] Urea nitrogen [Mass/Vol] 16 mg/dL 7 - 21 mg/dL [facility] metabolic 2000 panelon 06-29-2023 Albumin [Mass/Vol] 4.3 g/dL Normal 3.9-4.9 [facility] Comment on above: Order Comment: Speci men Type: BLOOD SPECIMENOrdering Facility: [facility] Address: [address] [place] [address] Performed By: #### 2 4323-8 ####[facility] LABCLIA [id number] [place] [address] ALP [Catalytic activity/Vol] 80 U/L Normal 34-123 [facility] Comment on above: Order Comment: Speci men Type: BLOOD SPECIMENOrdering Facility: [facility] Address: [address] [place] [address] Performed By: #### 2 4323-8 ####[facility] LABCLIA [id number] [place] [address] ALT [Catalytic activity/Vol] 17 U/L Normal 7-38 [facility] Comment on above: Order Comment: Speci men Type: BLOOD SPECIMENOrdering Facility: [facility] Address: [address] [place] [address] Performed By: #### 2 4323-8 ####[facility] LABCLIA [id number] [place] [address] Anion gap [Moles/Vol] 9 mmol/L Normal 9-18 [facility] Comment on above: Order Comment: Speci men Type: BLOOD SPECIMENOrdering Facility: [facility] Address: [address] [place] [address] Performed By: #### 2 4323-8 ####[facility] LABCLIA [id number] [place] [address] AST [Catalytic activity/Vol] 20 U/L Normal 13-35 [facility] Comment on above: Order Comment: Speci men Type: BLOOD SPECIMENOrdering Facility: [facility] Address: [address] [place] [address] Performed By: #### 2 4323-8 ####[facility] LABCLIA [id number] [place] [address] Bilirubin [Mass/Vol] 0.3 mg/dL Normal 0.2-1.3 [facility] Comment on above: Order Comment: Speci men Type: BLOOD SPECIMENOrdering Facility: [facility] Address: [address] [place] [address] Performed By: #### 2 4323-8 ####[facility] LABCLIA [id number] [place] [address] Calcium [Mass/Vol] 10.0 mg/dL Normal 8.5-10.2 [facility] Comment on above: Order Comment: Speci men Type: BLOOD SPECIMENOrdering Facility: [facility] Address: [address] [place] [address] Performed By: #### 2 4323-8 ####[facility] LABCLIA [id number] [place] [address] Chloride [Moles/Vol] 107 mmol/L High 97-105 [facility] Comment on above: Order Comment: Speci men Type: BLOOD SPECIMENOrdering Facility: [facility] Address: [address] [place] [address] Performed By: #### 2 4323-8 ####[facility] LABCLIA [id number] [place] [address] CO2 [Moles/Vol] 26 mmol/L Normal 22-30 [facility] Comment on above: Order Comment: Speci men Type: BLOOD SPECIMENOrdering Facility: [facility] Address: [address] [place] [address] Performed By: #### 2 4323-8 ####[facility] LABCLIA [id number] [place] [address] Creatinine [Mass/Vol] 0.91 mg/dL Normal 0.58-0.96 [facility] Comment on above: Order Comment: Speci men Type: BLOOD SPECIMENOrdering Facility: [facility] Address: [address] [place], [place] [id number] Performed By: #### 2 4323-8 ####[facility] LABCLIA [id number] [place] [address] Creatinine and Glomerular filtration rate.predicted panel (S/P/Bld) 68 mL/min/1.73m??? Normal >=60 [facility] Comment on above: Order Comment: Satish men Type: BLOOD SPECIMENOrdering Facility: [facility] Address: [address] [place] [address] Result Comment: Polina mated Glomerular Filtration Rate (eGFR) is calculated using the 2020 CKD-EPI creatinine equation. This equation utilizes serum creatinine, sex, and age as parameters. The creatinine assay has traceable calibration to isotope dilution-mass spectrometry. Refer to KDIGO guidelines for clinical interpretation. In patients with unstable renal function, e.g. those with acute kidney injury, the eGFR may not accurately reflect actual GFR. Performed By: #### 2 4323-8 ####[facility] LABCLIA [id number] [place] [address] Glucose [Mass/Vol] 141 mg/dL High 74-99 [facility] Comment on above: Order Comment: Satish schroeder Type: BLOOD SPECIMENOrdering Facility: [facility] Address: [address] [place], [place] [id number] Result Comment: The [place] Diabetes Association (ADA) provides guidance for cutoff values for fasting glucose and random glucose. The ADA defines fasting as no caloric intake for at least 8 hours. Fasting plasma glucose results between 100 to 125 mg/dL indicate increased risk for diabetes (prediabetes).Fasting plasma glucose results greater than or equal to 126 mg/dL meet the criteria for diagnosis of diabetes. In the absence of unequivocal hyperglycemia, results should be confirmed by repeat testing. In a patient with classic symptoms of hyperglycemia or hyperglycemic crisis, random plasma glucose results greater than or equal to 200 mg/dL meet the criteria for diagnosis of diabetes.Reference: Standards of Medical Care in Diabetes 2016, [place] Diabetes Association. Diabetes Care. 2016.39(Suppl 1). Performed By: #### 2 4323-8 ####[facility] LABCLIA [id number] [place] [address] Potassium [Moles/Vol] 3.9 mmol/L Normal 3.7-5.1 [facility] Comment on above: Order Comment: Speci men Type: BLOOD SPECIMENOrdering Facility: [facility] Address: [address] [place] [address] Performed By: #### 2 4323-8 ####[facility] LABCLIA [id number] [place] [address] Protein [Mass/Vol] 6.8 g/dL Normal 6.3-8.0 [facility] Comment on above: Order Comment: Speci men Type: BLOOD SPECIMENOrdering Facility: [facility] Address: [address] [place] [address] Performed By: #### 2 4323-8 ####[facility] LABCLIA [id number] [place] [address] Sodium [Moles/Vol] 142 mmol/L Normal 136-144 [facility] Comment on above: Order Comment: Speci men Type: BLOOD SPECIMENOrdering Facility: [facility] Address: [address] [place] [address] Performed By: #### 2 4323-8 ####[facility] LABCLIA [id number] [place] [address] Urea nitrogen [Mass/Vol] 16 mg/dL Normal 7-21 [facility] Comment on above: Order Comment: Speci men Type: BLOOD SPECIMENOrdering Facility: [facility] Address: [address] [place] [address] Performed By: #### 2 4323-8 ####[facility] LABIA [id number] [place] [address] Consultation Noteon 06-16-19 24 Consultation Note [id number] IFF Normal [facility] Ambulatory Visit Summaryon 0 06-09-2023 Ambulatory Visit Summary KIAH CORTES :1955 Visit Date:06/09/2023 Ambulatory Visit Instructions Your Diagnosis BMI 40.0-44.9, adult, Body mass index [BMI] 40.0-44.9, adult Class 3 severe obesity due to excess calories with body mass index (BMI) of 40.0 to 44.9 in adult Nonsmoker Your Care Team Attending Physician - Richard Kumar Primary Care Physician - Nate Bobby MD This Is Your [place]ations [place] [facility] [place]Handdano Barboza, 5 years.) abemaciclib (Verzenio 150 mg oral tablet) abemaciclib (Verzenio 50 mg oral tablet) amlodipine (amLODIPine 10 mg Tab) anastrozole (anastrozole 1 mg Tab) atorvastatin (atorvastatin 40 mg Tab) budesonide-formoterol (Symbicort 160/4.5 inhalation aerosol with adapter) carvedilol (carvedilol 25 mg Tab) celecoxib (CeleBREX 100 mg Cap) fluticasone nasal (Flonase 0.05 mg/inh [place]) fluticasone nasal (fluticasone Nasal 0.05 mg/inh [place]) levothyroxine (levothyroxine 50 mcg (0.05 mg) Tab) loratadine (loratadine 10 mg Tab) metformin (metformin 1000 mg Tab) ondansetron (ondansetron 8 mg Dis Tab) prochlorperazine (prochlorperazine 10 mg Tab) ropinirole (ropinirole 0.25 mg Tab) Procedures Performed Appendectomy, Arthroscopic knee operation, Lymphadenectomy, Reverse shoulder replacement, Shoulder, Tubal ligation. Discharge Vitals Temperature (Oral) 37.0 ?C Heart Rate (Peripheral) 68 Respiratory Rate 16 Blood Pressure 126/80 Height 152 cm Height 60 in Weight 100.3 kg Weight 220.66 lb BMI 43.41 What to do next Scheduled Follow-Up Appointments Tuesday 9:30 AM EDT With: Where: [facility] [place] Normal [address] [id number]- \.br\ Medications\.br\ What How Much When Why Instructions\.br\ Unchanged abemaciclib (Verzenio 150 mg oral tablet) 1 Tablets By Mouth 2 times a day\.br\ Unchanged abemaciclib (Verzenio 50 mg oral tablet) 1 Tablets By Mouth 2 times a day\.br\ Unchanged amlodipine (amLODIPine 10 mg Tab) See instructions TAKE 1 TABLET BY MOUTH EVERY DAY \.br\ Unchanged anastrozole (anastrozole 1 mg Tab) 1 Tablets By Mouth Every day\.br\ Unchanged atorvastatin (atorvastatin 40 mg Tab) See instructions TAKE 1 TABLET BY MOUTH EVERY DAY \.br\ Unchanged budesonide-formot edgar (Symbicort 160/ 4.5 inhalation aerosol with adapter) 2 Puffs Inhalation 2 times a day Immunodeficiency due to drugs Malignant neoplasm of female breast BMI 40.0-44.9, adult Class 3 obesity URI due to influenza Nonsmoker\.br\ Unchanged carvedilol (carvedilol 25 mg Tab) See instructions TAKE 1 TABLET BY MOUTH TWICE A DAY \.br\ Unchanged celecoxib (CeleBREX 100 mg Cap) 1 Capsules By Mouth 2 times a day\.br\ Unchanged fluticasone nasal (Flonase 0.05 mg/ inh [place]) 2 Sprays Nasal Inhalation Every day each nostril \.br\ Unchanged fluticasone nasal (fluticasone Nasal 0.05 mg/ inh [place]) See instructions USE 2 SPRAYS IN EACH NOSTRIL ONCE A DAY \.br\ Unchanged levothyroxine (levothyroxine 50 mcg (0.05 mg) Tab) See instructions TAKE 1 TABLET BY MOUTH EVERY DAY \.br\ Unchanged loratadine (loratadine 10 mg Tab) See instructions TAKE 1 TABLET BY MOUTH EVERY DAY \.br\ Unchanged metformin (metformin 1000 mg Tab) See instructions TAKE 1 TABLET BY MOUTH TWICE A DAY \.br\ Unchanged Misc Prescription (Handicap Placard, 5 years.) See instructions HTN (hypertension), benign Type 2 diabetes mellitus with hyperlipidemia Mixed hyperlipidemia Immunodeficiency due to drugs Osteoarthritis Malignant neoplasm of female breast, unspecified estrogen receptor status, unspecified laterality, unspecified site of breast BMI 40.0-44.9, adult Class 3 obesity Reactive airway disease Seasonal allergies Handicap Placard, 5 years. \.br\ Unchanged ondansetron (ondansetron 8 mg Dis Tab) See instructions use as needed for nausea \.br\ Unchanged prochlorperazine (prochlorperazine 10 mg Tab) See instructions take as needed for nausea \.br\ Unchanged ropinirole (ropinirole 0.25 mg Tab) See instructions TAKE 1 TABLET BY MOUTH EVERY DAY \.br\ Allergies\.br\ No Known Allergies\.br\ Problems\.br\ Ongoing - Any problem that you are currently receiving treatment for.\.br\ Acute URI\.br\ BMI 40.0-44.9, adult\.br\ Class 3 obesity\.br\ Hair loss\.br\ HTN (hypertension), benign\.br\ Immunodeficiency due to drugs\.br\ Knee pain, right\.br\ Malignant neoplasm of female breast\.br\ Mixed hyperlipidemia\.b r\ Non-smoker\.br\ Osteoarthritis\.b r\ Osteopenia\.br\ Reactive airway disease\.br\ RLS (restless legs syndrome)\.br\ Seasonal allergies\.br\ Type 2 diabetes mellitus with hyperlipidemia\.b r\ Patient Survey\.br\ You may receive a survey via text or e-mail asking about your office visit. Please share your experience with us by completing your survey. We appreciate your feedback and thank you for choosing us for your care.\.br\ \.br\ [facility] CNPNon 06-09-2023 CNPN Normal [facility] Office/Clini c Noteon 06-09-2023 Family Medicine Office/Clinic Note HPI Staff Patient of Dr. Bobby presents for a bump in vaginal area. there 2 one between fold groin and labia and another labia area onset: 2 days symptoms: they itch at times, no pain no drainage last pap/pelvic: 2014 History of Present Illness pt presents today for bump in vaginal area Review of Systems PHQ Score Initial Depression Screen Score: 2 SCORE Physical Exam Vitals & Measurements T: 37.0 ?C(Oral) HR: 68(Peripheral) RR: 16 BP: 126/80 SpO2: 98% HT: 60 in HT: 152 cm WT: 100.3 kg WT: 220.66 lb BMI: 43.41 General: alert, no acute distress ENMT: oral mucosa moist, no pharyngeal erythema or exudate Cardiovascular: regular rate and rhythm, normal peripheral perfusion Respiratory: Lungs CTA, respirations non labored Extremities: no deformity, no trauma Neurological: oriented x 4, LOC appropriate for age, CN II-XII intact, motor strength equal & normal bilaterally, speech normal right side of groin is red and excoriated. one small infected hair follicle noted as well, vaginal opening is also red with some excoration Assessment/Plan 1. Vaginal yeast infection (B37.31: Acute candidiasis of vulva and vagina) right side of groin and vaginal opening is red and excoriated. will treat with diflucan and cream Ordered: fluconazole, 150 mg = 1 tab(s), Oral, Once, 1 tab on day 1 and 1 tab on day 4, # 2 tab(s), Refills(s) 1, Pharmacy: [facility]/pharmacy #[id number], 152, cm, 06/09/23 13:37:00 EDT, Height/Length Dosing, 100.3, kg, 06/09/23 13:37:00 EDT, Weight Dosing triamcinolone topical, 1 kannan, Topical, TID, 15 gram, Refill(s) 0, [facility]/pharmacy #[id number], 152, cm, 06/09/23 13:37:00 EDT, Height/Length Dosing, 100.3, kg, 06/09/23 13:37:00 EDT, Weight Dosing 2. Folliculitis (L73.9: Follicular disorder, unspecified) one small area of infected hair follicle noted on right lower perineum. Ordered: fluconazole, 150 mg = 1 tab(s), Oral, Once, 1 tab on day 1 and 1 tab on day 4, # 2 tab(s), Refills(s) 1, Pharmacy: [facility]/pharmacy #[id number], 152, cm, 06/09/23 13:37:00 EDT, Height/Length Dosing, 100.3, kg, 06/09/23 13:37:00 EDT, Weight Dosing triamcinolone topical, 1 kannan, Topical, TID, 15 gram, Refill(s) 0, [facility]/pharmacy #[id number], 152, cm, 06/09/23 13:37:00 EDT, Height/Length Dosing, 100.3, kg, 06/09/23 13:37:00 EDT, Weight Dosing 3. Class 3 severe obesity due to excess calories with body mass index (BMI) of 40.0 to 44.9 in adult (E66.01: Morbid (severe) obesity due to excess calories) see below Ordered: fluconazole, 150 mg = 1 tab(s), Oral, Once, 1 tab on day 1 and 1 tab on day 4, # 2 tab(s), Refills(s) 1, Pharmacy: [facility]/pharmacy #[id number], 152, cm, 06/09/23 13:37:00 EDT, Height/Length Dosing, 100.3, kg, 06/09/23 13:37:00 EDT, Weight Dosing triamcinolone topical, 1 kannan, Topical, TID, 15 gram, Refill(s) 0, [facility]/pharmacy #[id number], 152, cm, 06/09/23 13:37:00 EDT, Height/Length Dosing, 100.3, kg, 06/09/23 13:37:00 EDT, Weight Dosing Body Mass Index (BMI) documented 3008F Current tobacco non-user 1036F Depression Screening Negative 3352F Influenza immunization administered or previously received 4274F Most recent diastolic blood pressure 80-89 mm Hg 3079F Patient screen for fall risk: no falls in last year or 1 fall with no injury in last year 1101F Systolic BP <130 mm Hg (Most Recent) 3074F 4. Body mass index [BMI] 40.0-44.9, adult (Z68.41: Body mass index [BMI] 40.0-44.9, adult) BMI education complete Ordered: fluconazole, 150 mg = 1 tab(s), Oral, Once, 1 tab on day 1 and 1 tab on day 4, # 2 tab(s), Refills(s) 1, Pharmacy: [facility]/pharmacy #[id number], 152, cm, 06/09/23 13:37:00 EDT, Height/Length Dosing, 100.3, kg, 06/09/23 13:37:00 EDT, Weight Dosing triamcinolone topical, 1 kannan, Topical, TID, 15 gram, Refill(s) 0, [facility]/pharmacy #[id number], 152, cm, 06/09/23 13:37:00 EDT, Height/Length Dosing, 100.3, kg, 06/09/23 13:37:00 EDT, Weight Dosing Body Mass Index (BMI) documented 3008F Current tobacco non-user 1036F Depression Screening Negative 3352F Influenza immunization administered or previously received 4274F Most recent diastolic blood pressure 80-89 mm Hg 3079F Patient screen for fall risk: no falls in last year or 1 fall with no injury in last year 1101F Systolic BP <130 mm Hg (Most Recent) 3074F 5. Nonsmoker (Z78.9: Other specified health status) continue not smoking Ordered: fluconazole, 150 mg = 1 tab(s), Oral, Once, 1 tab on day 1 and 1 tab on day 4, # 2 tab(s), Refills(s) 1, Pharmacy: [facility]/pharmacy #[id number], 152, cm, 06/09/23 13:37:00 EDT, Height/Length Dosing, 100.3, kg, 06/09/23 13:37:00 EDT, Weight Dosing triamcinolone topical, 1 kannan, Topical, TID, 15 gram, Refill(s) 0, [facility]/pharmacy #[id number], 152, cm, 06/09/23 13:37:00 EDT, Height/Length Dosing, 100.3, kg, 06/09/23 13:37:00 EDT, Weight Dosing Body Mass Index (BMI) documented 3008F Current tobacco non-user 1036F Depression Screening Negative 3352F Influenza immunization administered or previously received 4274F Most recent diastolic blood pressure 80-89 mm Hg 3079F Patient screen for fall r (more content not included)... Normal [facility] Comment on above: Result Comment: Elec tronically Signed By: Richard Kumar\.br\Date and Time Signed: 06/09/23 14:02 EDT CBC W Auto Differential pane l (Bld)on 06-08-2023 Basophils (Bld) [#/Vol] <0.11 k/uL [facility] Basophils/100 WBC (Bld) 0.8 % [facility] Differential cell count method Nom (Bld) Auto [facility] Eosinophils (Bld) [#/Vol] 0.04 10*3/uL <0.46 k/uL [facility] Eosinophils/100 WBC (Bld) 1.6 % [facility] Erythrocyte distribution width (RBC) [Ratio] 16.1 % High 11.5 - 15.0 % [facility] Hematocrit (Bld) [Volume fraction] 32.8 % Low 36.0 - 46.0 % [facility] Hemoglobin (Bld) [Mass/Vol] 11.0 g/dL Low 11.5 - 15.5 g/dL [facility] Immature granulocytes (Bld) [#/Vol] <0.10 k/uL [facility] Immature granulocytes/100 WBC (Bld) 0.4 % [facility] Lymphocytes (Bld) [#/Vol] 0.81 10*3/uL Low 1.00 - 4.00 k/uL [facility] Lymphocytes/100 WBC (Bld) 32.8 % [facility] MCH (RBC) [Entitic mass] 34.1 pg High 26.0 - 34.[address] [facility] MCHC (RBC) [Mass/Vol] 33.5 g/dL 30.5 - 36.0 g/dL [facility] MCV (RBC) [Entitic vol] 101.5 fL High 80.0 - 100.[address] [facility] Monocytes (Bld) [#/Vol] 0.19 10*3/uL <0.87 k/uL [facility] Monocytes/100 WBC (Bld) 7.7 % [facility] Neutrophils (Bld) [#/Vol] 1.40 10*3/uL Low 1.45 - 7.50 k/uL [facility] Neutrophils/100 WBC (Bld) 56.7 % [facility] Nucleated RBC (Bld) [#/Vol] <0.01 k/uL [facility] Nucleated RBC/100 WBC (Bld) [Ratio] 0.0 /[address] [facility] Platelet mean volume (Bld) [Entitic vol] 9.3 fL 9.0 - 12.[address] [facility] Platelets (Bld) [#/Vol] 119 10*3/uL Low 150 - 400 k/uL [facility] RBC (Bld) [#/Vol] 3.23 10*6/uL Low 3.90 - 5.20 m/uL [facility] WBC (Bld) [#/Vol] 2.47 10*3/uL Low 3.70 - 11.00 k/u L [facility] Basophils (Bld) [#/Vol] 10*3/uL Normal <0.11 [facility] Comment on above: Order Comment: Speci men Type: BLOOD SPECIMENOrdering Facility: [facility] Address: [address] [place] [address] Performed By: #### 5 7021-8 ####[facility] LABCLIA [id number] [place] [address] Basophils/100 WBC (Bld) 0.8 % Normal [facility] Comment on above: Order Comment: Speci men Type: BLOOD SPECIMENOrdering Facility: [facility] Address: [address] [place] [address] Performed By: #### 5 7021-8 ####[facility] LABCLIA [id number] [place] [address] Differential cell count method Nom (Bld) Auto Normal [facility] Comment on above: Order Comment: Speci men Type: BLOOD SPECIMENOrdering Facility: [facility] Address: [address] [place] [address] Performed By: #### 5 7021-8 ####[facility] LABCLIA [id number] [place] [address] Eosinophils (Bld) [#/Vol] 0.04 10*3/uL Normal <0.46 [facility] Comment on above: Order Comment: Speci men Type: BLOOD SPECIMENOrdering Facility: [facility] Address: [address] [place] [address] Performed By: #### 5 7021-8 ####[facility] LABCLIA [id number] [place] [address] Eosinophils/100 WBC (Bld) 1.6 % Normal [facility] Comment on above: Order Comment: Speci men Type: BLOOD SPECIMENOrdering Facility: [facility] Address: [address] [place] [address] Performed By: #### 5 7021-8 ####[facility] LABCLIA [id number] [place] [address] Erythrocyte distribution width (RBC) [Ratio] 16.1 % High 11.5-15.0 [facility] Comment on above: Order Comment: Speci men Type: BLOOD SPECIMENOrdering Facility: [facility] Address: [address] [place] [address] Performed By: #### 5 7021-8 ####[facility] LABCLIA [id number] [place] [address] Hematocrit (Bld) [Volume fraction] 32.8 % Low 36.0-46.0 [facility] Comment on above: Order Comment: Speci men Type: BLOOD SPECIMENOrdering Facility: [facility] Address: [address] [place] [address] Performed By: #### 5 7021-8 ####[facility] LABCLIA [id number] [place] [address] Hemoglobin (Bld) [Mass/Vol] 11.0 g/dL Low 11.5-15.5 [facility] Comment on above: Order Comment: Speci men Type: BLOOD SPECIMENOrdering Facility: [facility] Address: [address] [place] [address] Performed By: #### 5 7021-8 ####[facility] LABCLIA [id number] [place] [address] Immature granulocytes (Bld) [#/Vol] 10*3/uL Normal <0.10 [facility] Comment on above: Order Comment: Speci men Type: BLOOD SPECIMENOrdering Facility: [facility] Address: [address] [place] [address] Performed By: #### 5 7021-8 ####[facility] LABCLIA [id number] [place] [address] Immature granulocytes/100 WBC (Bld) 0.4 % Normal [facility] Comment on above: Order Comment: Speci men Type: BLOOD SPECIMENOrdering Facility: [facility] Address: [address] [place] [address] Performed By: #### 5 7021-8 ####[facility] LABCLIA [id number] [place] [address] Lymphocytes (Bld) [#/Vol] 0.81 10*3/uL Low 1.00-4.00 [facility] Comment on above: Order Comment: Speci men Type: BLOOD SPECIMENOrdering Facility: [facility] Address: [address] [place] [address] Performed By: #### 5 7021-8 ####[facility] LABCLIA [id number] [place] [address] Lymphocytes/100 WBC (Bld) 32.8 % Normal [facility] Comment on above: Order Comment: Speci men Type: BLOOD SPECIMENOrdering Facility: [facility] Address: [address] [place] [address] Performed By: #### 5 7021-8 ####[facility] LABCLIA [id number] [place] [address] MCH (RBC) [Entitic mass] 34.1 pg High 26.0-34.0 [facility] Comment on above: Order Comment: Speci men Type: BLOOD SPECIMENOrdering Facility: [facility] Address: [address] [place] [address] Performed By: #### 5 7021-8 ####[facility] LABCLIA [id number] [place] [address] MCHC (RBC) [Mass/Vol] 33.5 g/dL Normal 30.5-36.0 [facility] Comment on above: Order Comment: Speci men Type: BLOOD SPECIMENOrdering Facility: [facility] Address: [address] [place] [address] Performed By: #### 5 7021-8 ####[facility] LABCLIA [id number] [place] [address] MCV (RBC) [Entitic vol] 101.5 fL High 80.0-100.0 [facility] Comment on above: Order Comment: Speci men Type: BLOOD SPECIMENOrdering Facility: [facility] Address: [address] [place] [address] Performed By: #### 5 7021-8 ####[facility] LABCLIA [id number] [place] [address] Monocytes (Bld) [#/Vol] 0.19 10*3/uL Normal <0.87 [facility] Comment on above: Order Comment: Speci men Type: BLOOD SPECIMENOrdering Facility: [facility] Address: [address] [place] [address] Performed By: #### 5 7021-8 ####[facility] LABCLIA [id number] [place] [address] Monocytes/100 WBC (Bld) 7.7 % Normal [facility] Comment on above: Order Comment: Speci men Type: BLOOD SPECIMENOrdering Facility: [facility] Address: [address] [place] [address] Performed By: #### 5 7021-8 ####[facility] LABCLIA [id number] [place] [address] Neutrophils (Bld) [#/Vol] 1.40 10*3/uL Low 1.45-7.50 [facility] Comment on above: Order Comment: Speci men Type: BLOOD SPECIMENOrdering Facility: [facility] Address: [address] [place] [address] Performed By: #### 5 7021-8 ####[facility] LABCLIA [id number] [place] [address] Neutrophils/100 WBC (Bld) 56.7 % Normal [facility] Comment on above: Order Comment: Speci men Type: BLOOD SPECIMENOrdering Facility: [facility] Address: [address] [place] [address] Performed By: #### 5 7021-8 ####[facility] LABCLIA [id number] [place] [address] Nucleated RBC (Bld) [#/Vol] 10*3/uL Normal <0.01 [facility] Comment on above: Order Comment: Speci men Type: BLOOD SPECIMENOrdering Facility: [facility] Address: [address] [place] [address] Performed By: #### 5 7021-8 ####[facility] LABCLIA [id number] [place] [address] Nucleated RBC/100 WBC (Bld) [Ratio] 0.0 /100 WBC Normal [facility] Comment on above: Order Comment: Speci men Type: BLOOD SPECIMENOrdering Facility: [facility] Address: [address] [place] [address] Performed By: #### 5 7021-8 ####[facility] LABCLIA [id number] [place] [address] Platelet mean volume (Bld) [Entitic vol] 9.3 fL Normal 9.0-12.7 [facility] Comment on above: Order Comment: Speci men Type: BLOOD SPECIMENOrdering Facility: [facility] Address: [address] [place] [address] Performed By: #### 5 7021-8 ####[facility] LABCLIA [id number] [place] [address] Platelets (Bld) [#/Vol] 119 10*3/uL Low 150-400 [facility] Comment on above: Order Comment: Speci men Type: BLOOD SPECIMENOrdering Facility: [facility] Address: [address] [place] [address] Performed By: #### 5 7021-8 ####[facility] LABCLIA [id number] [place] [address] RBC (Bld) [#/Vol] 3.23 10*6/uL Low 3.90-5.20 [facility] Comment on above: Order Comment: Speci men Type: BLOOD SPECIMENOrdering Facility: [facility] Address: [address] [place] [address] Performed By: #### 5 7021-8 ####[facility] LABCLIA [id number] [place] [address] WBC (Bld) [#/Vol] 2.47 10*3/uL Low 3.70-11.00 [facility] Comment on above: Order Comment: Speci men Type: BLOOD SPECIMENOrdering Facility: [facility] Address: [address] [place] [address] Performed By: #### 5 7021-8 ####[facility] LABCLIA [id number] [place] [address] CNOVSPon 06-08-2023 CNOVSP Normal [facility] Cancer Ag15-3 SerPl-aCncon 0 06-08-2023 Cancer Ag 15-3 Qn 19.9 U/mL Normal <26.0 [facility] Comment on above: Order Comment: Speci men Type: BLOOD SPECIMENOrdering Facility: [facility] Address: [address] [place] [address] Result Comment: The CA 15-3 test methodology used is the Electrochemiluminescence Immunoassay by [employer]. Results obtained with different methods or kits cannot be used interchangeably. Performed By: #### 6 875-9 ####[facility] LABCLIA [id number] [place] [address] [place] Cancer Ag27-29 SerPl-aCncon 06-08-2023 Cancer Ag 27-29 Qn 18.4 [arb'U]/mL Normal <38.6 [facility] Comment on above: Order Comment: Speci men Type: BLOOD SPECIMENOrdering Facility: [facility] Address: [address] [place] [address] Result Comment: The CA27.29 test was performed using the [employer] Portable [employer] XP chemiluminometric immunoassay method. Results obtained with different assay methods or kits cannot be used interchangeably. Performed By: #### 1 7842-6 ####[facility] LABCLIA [id number] JULEELilly [facility] [id number] [address] [place] Comprehensive metabolic 2000 panelon 06-08-2023 Albumin [Mass/Vol] 4.2 g/dL 3.9 - 4.9 g/dL [facility] ALP [Catalytic activity/Vol] 92 U/L 34 - 123 U/L [facility] ALT [Catalytic activity/Vol] 15 U/L 7 - 38 U/L [facility] Anion gap [Moles/Vol] 12 mmol/L 9 - 18 mmol/L [facility] AST [Catalytic activity/Vol] 16 U/L 13 - 35 U/L [facility] Bilirubin [Mass/Vol] 0.2 mg/dL 0.2 - 1.3 mg/dL [facility] Calcium [Mass/Vol] 10.6 mg/dL High 8.5 - 10.2 mg/dL [facility] Chloride [Moles/Vol] 108 mmol/L High 97 - 105 mmol/L [facility] CO2 [Moles/Vol] 22 mmol/L 22 - 30 mmol/L [facility] Creatinine [Mass/Vol] 1.47 mg/dL High 0.58 - 0.96 mg/dL [facility] Estimated Glomerular Filtration Rate 38 mL/min/1.73m Low >=60 mL/min/1.73m [facility] Glucose [Mass/Vol] 160 mg/dL High 74 - 99 mg/dL [facility] Potassium [Moles/Vol] 4.4 mmol/L 3.7 - 5.1 mmol/L [facility] Protein [Mass/Vol] 6.7 g/dL 6.3 - 8.0 g/dL [facility] Sodium [Moles/Vol] 142 mmol/L 136 - 144 mmol/L [facility] Urea nitrogen [Mass/Vol] 28 mg/dL High 7 - 21 mg/dL [facility] Albumin [Mass/Vol] 4.2 g/dL Normal 3.9-4.9 [facility] Comment on above: Order Comment: Speci men Type: BLOOD SPECIMENOrdering Facility: [facility] Address: [address] [place] [address] Performed By: #### 2 4323-8 ####[facility] LABCLIA [id number] [place] [address] ALP [Catalytic activity/Vol] 92 U/L Normal 34-123 [facility] Comment on above: Order Comment: Speci men Type: BLOOD SPECIMENOrdering Facility: [facility] Address: [facility] [place] [address] Performed By: #### 2 4323-8 ####[facility] LABCLIA [id number] [place] [address] ALT [Catalytic activity/Vol] 15 U/L Normal 7-38 [facility] Comment on above: Order Comment: Speci men Type: BLOOD SPECIMENOrdering Facility: [facility] Address: [address] [place] [address] Performed By: #### 2 4323-8 ####[facility] LABCLIA [id number] [place] [address] Anion gap [Moles/Vol] 12 mmol/L Normal 9-18 [facility] Comment on above: Order Comment: Speci men Type: BLOOD SPECIMENOrdering Facility: [facility] Address: [address] [place] [address] Performed By: #### 2 4323-8 ####[facility] LABCLIA [id number] [place] [address] AST [Catalytic activity/Vol] 16 U/L Normal 13-35 [facility] Comment on above: Order Comment: Speci men Type: BLOOD SPECIMENOrdering Facility: [facility] Address: [address] [place] [address] Performed By: #### 2 4323-8 ####[facility] LABCLIA [id number] [place] [address] Bilirubin [Mass/Vol] 0.2 mg/dL Normal 0.2-1.3 [facility] Comment on above: Order Comment: Speci men Type: BLOOD SPECIMENOrdering Facility: [facility] Address: [address] [place] [address] Performed By: #### 2 4323-8 ####[facility] LABCLIA [id number] [place] [address] Calcium [Mass/Vol] 10.6 mg/dL High 8.5-10.2 [facility] Comment on above: Order Comment: Speci men Type: BLOOD SPECIMENOrdering Facility: [facility] Address: [address] [place] [address] Performed By: #### 2 4323-8 ####[facility] LABCLIA [id number] [place] [address] Chloride [Moles/Vol] 108 mmol/L High 97-105 [facility] Comment on above: Order Comment: Speci men Type: BLOOD SPECIMENOrdering Facility: [facility] Address: [address] [place] [address] Performed By: #### 2 4323-8 ####[facility] LABCLIA [id number] [place] [address] CO2 [Moles/Vol] 22 mmol/L Normal 22-30 [facility] Comment on above: Order Comment: Speci men Type: BLOOD SPECIMENOrdering Facility: [facility] Address: [address] [place] [address] Performed By: #### 2 4323-8 ####[facility] LABCLIA [id number] [place] [address] Creatinine [Mass/Vol] 1.47 mg/dL High 0.58-0.96 [facility] Comment on above: Order Comment: Speci men Type: BLOOD SPECIMENOrdering Facility: [facility] Address: [address] [place] [address] Performed By: #### 2 4323-8 ####[facility] LABCLIA [id number] [place] [address] Creatinine and Glomerular filtration rate.predicted panel (S/P/Bld) 38 mL/min/1.73m??? Low >=60 [facility] Comment on above: Order Comment: Satish schroeder Type: BLOOD SPECIMENOrdering Facility: [facility] Address: [address] [place] [address] Result Comment: Polina mated Glomerular Filtration Rate (eGFR) is calculated using the 2020 CKD-EPI creatinine equation. This equation utilizes serum creatinine, sex, and age as parameters. The creatinine assay has traceable calibration to isotope dilution-mass spectrometry. Refer to KDIGO guidelines for clinical interpretation. In patients with unstable renal function, e.g. those with acute kidney injury, the eGFR may not accurately reflect actual GFR. Performed By: #### 2 4323-8 ####[facility] LABCLIA [id number] [place] [address] Glucose [Mass/Vol] 160 mg/dL High 74-99 [facility] Comment on above: Order Comment: Satish schroeder Type: BLOOD SPECIMENOrdering Facility: [facility] Address: [address] [place] [address] Result Comment: The [place] Diabetes Association (ADA) provides guidance for cutoff values for fasting glucose and random glucose. The ADA defines fasting as no caloric intake for at least 8 hours. Fasting plasma glucose results between 100 to 125 mg/dL indicate increased risk for diabetes (prediabetes).Fasting plasma glucose results greater than or equal to 126 mg/dL meet the criteria for diagnosis of diabetes. In the absence of unequivocal hyperglycemia, results should be confirmed by repeat testing. In a patient with classic symptoms of hyperglycemia or hyperglycemic crisis, random plasma glucose results greater than or equal to 200 mg/dL meet the criteria for diagnosis of diabetes.Reference: Standards of Medical Care in Diabetes 2016, [place] Diabetes Association. Diabetes Care. 2016.39(Suppl 1). Performed By: #### 2 4323-8 ####[facility] LABCLIA [id number] [place] [address] Potassium [Moles/Vol] 4.4 mmol/L Normal 3.7-5.1 [facility] Comment on above: Order Comment: Satish schroeder Type: BLOOD SPECIMENOrdering Facility: [facility] Address: [address] [place] [id number] Performed By: #### 2 4323-8 ####[facility] LABCLIA [id number] [place] [address] Protein [Mass/Vol] 6.7 g/dL Normal 6.3-8.0 [facility] Comment on above: Order Comment: Speci men Type: BLOOD SPECIMENOrdering Facility: [facility] Address: [address] [place] [address] Performed By: #### 2 4323-8 ####[facility] LABCLIA [id number] [place] [address] Sodium [Moles/Vol] 142 mmol/L Normal 136-144 [facility] Comment on above: Order Comment: Speci men Type: BLOOD SPECIMENOrdering Facility: [facility] Address: [address] [place] [address] Performed By: #### 2 4323-8 ####[facility] LABCLIA [id number] [place] [address] Urea nitrogen [Mass/Vol] 28 mg/dL High 7-21 [facility] Comment on above: Order Comment: Speci men Type: BLOOD SPECIMENOrdering Facility: [facility] Address: [address] [place] [address] Performed By: #### 2 4323-8 ####[facility] LABIA [id number] [place] [address] CNPNon 05-24-2023 CNPN Normal [facility] CNPNon 05-18-2023 CNPN Normal [facility] Consultation Noteon 05-06-19 Consultation Note [id number] IFF Normal [facility] Retail - Clinical Noteon Retail - Clinical Note [id number] IFF Normal [facility] Ambulatory Visit Summaryon 0 05-03-2023 Ambulatory Visit Summary KIAH CORTES :1955 Visit Date:05/03/2023 Ambulatory Visit Instructions Your Diagnosis Immunodeficiency due to drugs Malignant neoplasm of female breast BMI 40.0-44.9, adult Class 3 obesity URI due to influenza Nonsmoker Other residential (current) drug therapy Your Care Team Attending Physician - Nate Bobby MD Primary Care Physician - Nate Bobby MD This Is Your Medications [place] [facility] [place]Handicap Jabari, 5 years.) abemaciclib (Verzenio 150 mg oral tablet) amlodipine (amLODIPine 10 mg Tab) anastrozole (anastrozole 1 mg Tab) atorvastatin (atorvastatin 40 mg Tab) carvedilol (carvedilol 25 mg Tab) celecoxib (CeleBREX 100 mg Cap) fluticasone nasal (Flonase 0.05 mg/inh [place]) fluticasone nasal (fluticasone Nasal 0.05 mg/inh [place]) levothyroxine (levothyroxine 50 mcg (0.05 mg) Tab) loratadine (loratadine 10 mg Tab) metformin (metformin 1000 mg Tab) ropinirole (ropinirole 0.25 mg Tab) Procedures Performed Appendectomy, Arthroscopic knee operation, Lymphadenectomy, Reverse shoulder replacement, Shoulder, Tubal ligation. Discharge Vitals Temperature (Temporal Artery) 37.0 ?C Heart Rate (Peripheral) 64 Respiratory Rate 16 Blood Pressure 118/70 Height 152.0 cm Height 60 in Weight 98.2 kg Weight 216.04 lb BMI 42.5 What to do next Scheduled Follow-Up Appointments Tuesday. 2023 9:30 AM EDT With: Where: [facility] [place] Normal [address] [place] [phone]- \.br\ Medications\.br\ What How Much When Why Instructions\.br\ Unchanged abemaciclib (Verzenio 150 mg oral tablet) 1 Tablets By Mouth 2 times a day\.br\ Unchanged amlodipine (amLODIPine 10 mg Tab) See instructions TAKE 1 TABLET BY MOUTH EVERY DAY \.br\ Unchanged anastrozole (anastrozole 1 mg Tab) 1 Tablets By Mouth Every day\.br\ Unchanged atorvastatin (atorvastatin 40 mg Tab) See instructions TAKE 1 TABLET BY MOUTH EVERY DAY \.br\ Unchanged carvedilol (carvedilol 25 mg Tab) See instructions TAKE 1 TABLET BY MOUTH TWICE A DAY \.br\ Unchanged celecoxib (CeleBREX 100 mg Cap) 1 Capsules By Mouth 2 times a day\.br\ Unchanged fluticasone nasal (Flonase 0.05 mg/ inh [place]) 2 Sprays Nasal Inhalation Every day each nostril \.br\ Unchanged fluticasone nasal (fluticasone Nasal 0.05 mg/ inh [place]) See instructions USE 2 SPRAYS IN EACH NOSTRIL ONCE A DAY \.br\ Unchanged levothyroxine (levothyroxine 50 mcg (0.05 mg) Tab) See instructions TAKE 1 TABLET BY MOUTH EVERY DAY \.br\ Unchanged loratadine (loratadine 10 mg Tab) See instructions TAKE 1 TABLET BY MOUTH EVERY DAY \.br\ Unchanged metformin (metformin 1000 mg Tab) See instructions TAKE 1 TABLET BY MOUTH TWICE A DAY \.br\ Unchanged Misc Prescription (Handicap Placard, 5 years.) See instructions HTN (hypertension), benign Type 2 diabetes mellitus with hyperlipidemia Mixed hyperlipidemia Immunodeficiency due to drugs Osteoarthritis Malignant neoplasm of female breast, unspecified estrogen receptor status, unspecified laterality, unspecified site of breast BMI 40.0-44.9, adult Class 3 obesity Reactive airway disease Seasonal allergies Handicap Placard, 5 years. \.br\ Unchanged ropinirole (ropinirole 0.25 mg Tab) See instructions TAKE 1 TABLET BY MOUTH EVERY DAY \.br\ Allergies\.br\ No Known Allergies\.br\ Problems\.br\ Ongoing - Any problem that you are currently receiving treatment for.\.br\ BMI 40.0-44.9, adult\.br\ Class 3 obesity\.br\ HTN (hypertension), benign\.br\ Immunodeficiency due to drugs\.br\ Knee pain, right\.br\ Malignant neoplasm of female breast\.br\ Mixed hyperlipidemia\.b r\ Non-smoker\.br\ Osteoarthritis\.b r\ Osteopenia\.br\ Reactive airway disease\.br\ RLS (restless legs syndrome)\.br\ Seasonal allergies\.br\ Type 2 diabetes mellitus with hyperlipidemia\.b r\ URI due to influenza\.br\ Patient Survey\.br\ You may receive a survey via text or e-mail asking about your office visit. Please share your experience with us by completing your survey. We appreciate your feedback and thank you for choosing us for your care.\.br\ \.br\ [facility] CNPNon 05-03-2023 CNPN Normal [facility] Office/Clini c Noteon 05-03-2023 Family Medicine Office/Clinic Note HPI Staff [place] is a 68 year old female presenting for sick visit Acute: nasal congestion, can't blow anything out _Respiratory C/O: Duration: week Body aches: yes cancer dr stopping the vercinio for a while and this could be causing her joint pain Chest congestion: yes Chills: yes Cough: no Ear complaints: no Eye itching/watering: yes Fever: no Headache: yes Nasal congestion: yes Nasal discharge: no Poor appetite: no Reduced activity: no Sinus pain/pressure: yes Sneezing: yes Sputum production: no Wheezing: no Ill contacts: no Remedies tried: carmelo seltzer plus, flonase, hot tea and advil bid _ _ History of Present Illness - See staff HPI. Review of Systems PHQ Score Initial Depression Screen Score: 2 SCORE Physical Exam Vitals & Measurements T: 37.0 ?C(Temporal Artery) HR: 64(Peripheral) RR: 16 BP: 118/70 SpO2: 98% HT: 60 in HT: 152.0 cm WT: 98.2 kg WT: 216.04 lb BMI: 42.5 General: alert, no acute distress ENMT: oral mucosa moist, Cardiovascular: regular rate and rhythm, normal peripheral perfusion Respiratory: Lungs CTA, respirations non labored Extremities: no deformity, no trauma Neurological: oriented x 4, LOC appropriate for age, CN II-XII intact, motor strength equal & normal bilaterally, speech normal Abdomen: Soft, Nontender, Non-distended, + BS Assessment/Plan 1. Acute URI (J06.9: Acute upper respiratory infection, unspecified) Would like to do medrol and a zpack, however unsure with the patient's CA diagnosis - Pt is to call her oncologist. - Will do azithro and Symbicort - If not improvement ER or sooner follow up. - Precautions discussed 2. Immunodeficiency due to drugs (D84.821: Immunodeficiency due to drugs) - One concern for doing steroids Ordered: azithromycin, = 1 packet(s), Oral, As Directed, as directed on package labeling, X 5 day(s), # 6 tab(s), Refills(s) 0, Pharmacy: [facility]/pharmacy #[id number], 152, cm, 05/03/23 14:40:00 EST, Height/Length Dosing, 98.2, kg, 05/03/23 14:40:00 EST, Weight Dosing budesonide-formoterol, 2 puff(s), Inhalation, BID, 10.2 gm, Refill(s) 0, [facility]/pharmacy #[id number], 152, cm, 05/03/23 14:40:00 EST, Height/Length Dosing, 98.2, kg, 05/03/23 14:40:00 EST, Weight Dosing Body Mass Index (BMI) documented 3008F Current tobacco non-user 1036F Depression Screening Negative 3352F Influenza immunization administered or previously received 4274F Most recent diastolic blood pressure <80 mm Hg 3078F Patient screen for fall risk: no falls in last year or 1 fall with no injury in last year 1101F Systolic BP <130 mm Hg (Most Recent) 3074F 3. Malignant neoplasm of female breast (C50.919: Malignant neoplasm of unspecified site of unspecified female breast) - As above Ordered: azithromycin, = 1 packet(s), Oral, As Directed, as directed on package labeling, X 5 day(s), # 6 tab(s), Refills(s) 0, Pharmacy: [facility]/pharmacy #[id number], 152, cm, 05/03/23 14:40:00 EST, Height/Length Dosing, 98.2, kg, 05/03/23 14:40:00 EST, Weight Dosing budesonide-formoterol, 2 puff(s), Inhalation, BID, 10.2 gm, Refill(s) 0, [facility]/pharmacy #[id number], 152, cm, 05/03/23 14:40:00 EST, Height/Length Dosing, 98.2, kg, 05/03/23 14:40:00 EST, Weight Dosing Body Mass Index (BMI) documented 3008F Current tobacco non-user 1036F Depression Screening Negative 3352F Influenza immunization administered or previously received 4274F Most recent diastolic blood pressure <80 mm Hg 3078F Patient screen for fall risk: no falls in last year or 1 fall with no injury in last year 1101F Systolic BP <130 mm Hg (Most Recent) 3074F 4. BMI 40.0-44.9, adult (Z68.41: Body mass index [BMI] 40.0-44.9, adult) - BMI education given Ordered: azithromycin, = 1 packet(s), Oral, As Directed, as directed on package labeling, X 5 day(s), # 6 tab(s), Refills(s) 0, Pharmacy: [facility]/pharmacy #[id number], 152, cm, 05/03/23 14:40:00 EST, Height/Length Dosing, 98.2, kg, 05/03/23 14:40:00 EST, Weight Dosing budesonide-formoterol, 2 puff(s), Inhalation, BID, 10.2 gm, Refill(s) 0, [id number], 152, cm, 05/03/23 14:40:00 EST, Height/Length Dosing, 98.2, kg, 05/03/23 14:40:00 EST, Weight Dosing Body Mass Index (BMI) documented 3008F Current tobacco non-user 1036F Depression Screening Negative 3352F Influenza immunization administered or previously received 4274F Most recent diastolic blood pressure <80 mm Hg 3078F Patient screen for fall risk: no falls in last year or 1 fall with no injury in last year 1101F Systolic BP <130 mm Hg (Most Recent) 3074F 5. Class 3 obesity (E66.01: Morbid (severe) obesity due to excess calories) - Diet and exercise advised Ordered: azithromycin, = 1 packet(s), Oral, As Directed, as directed on package labeling, X 5 day(s), # 6 tab(s), Refills(s) 0, Pharmacy: [facility]/pharmacy #[id number], 152, cm, 05/03/23 14:40:00 EST, Height/Length Dosing, 98.2, kg, 05/03/23 14:40:00 EST, Weight Dosing budesonide-formoterol, 2 puff(s), Inhalation, BID, 10.2 gm, Refill(s) 0, [id number], 152, c (more content not included)... Normal [facility] Comment on above: Result Comment: Elec tronically Signed By: Mukund MCGOVERN, Nate Schrader.br\Date and Time Signed: 05/03/23 14:57 EST Patient Educationon 05-03-19 Patient Education Nutrition BMI for Adults What is BMI? Body mass index (BMI) is a number that is calculated from a person's weight and height. BMI can help estimate how much of a person's weight is composed of fat. BMI does not measure body fat directly. Rather, it is an alternative to procedures that directly measure body fat, which can be difficult and expensive. BMI can help identify people who may be at higher risk for certain medical problems. What are BMI measurements used for? BMI is used as a screening tool to identify possible weight problems. It helps determine whether a person is obese, overweight, a healthy weight, or underweight. BMI is useful for: ? Identifying a weight problem that may be related to a medical condition or may increase the risk for medical problems. ? Promoting changes, such as changes in diet and exercise, to help reach a healthy weight. BMI screening can be repeated to see if these changes are working. How is BMI calculated? BMI involves measuring your weight in relation to your height. Both height and weight are measured, and the BMI is calculated from those numbers. This can be done either in [place] ([place] or metric measurements. Note that charts and online BMI calculators are available to help you find your BMI quickly and easily without having to do these calculations yourself. To calculate your BMI in [place] measurements: 1. Measure your weight in pounds (lb). 2. Multiply the number of pounds by 703. ? For example, for a person who weighs 180 lb, multiply that number by 703, which equals 126,540. 3. Measure your height in inches. Then multiply that number by itself to get a measurement called inches squared. ? For example, for a person who is 70 inches tall, the inches squared measurement is 70 inches x 70 inches, which equals 4,900 inches squared. 4. Divide the total from step 2 (number of lb x 703) by the total from step 3 (inches squared): 126,540 ? 4,900 = 25.8. This is your BMI. To calculate your BMI in metric measurements: 1. Measure your weight in kilograms (kg). 2. Measure your height in meters (m). Then multiply that number by itself to get a measurement called meters squared. ? For example, for a person who is 1.75 m tall, the meters squared measurement is 1.75 m x 1.75 m, which is equal to 3.1 meters squared. 3. Divide the number of kilograms (your weight) by the meters squared number. In this example: 70 ? 3.1 = 22.6. This is your BMI. What do the results mean? BMI charts are used to identify whether you are underweight, normal weight, overweight, or obese. The following guidelines will be used: ? Underweight: BMI less than 18.5. ? Normal weight: BMI between 18.5 and 24.9. ? Overweight: BMI between 25 and 29.9. ? Obese: BMI of 30 or above. Keep these notes in mind: ? Weight includes both fat and muscle, so someone with a muscular build, such as an athlete, may have a BMI that is higher than 24.9. In cases like these, BMI is not an accurate measure of body fat. ? To determine if excess body fat is the cause of a BMI of 25 or higher, further assessments may need to be done by a health care provider. ? BMI is usually interpreted in the same way for men and women. Where to find more information For more information about BMI, including tools to quickly calculate your BMI, go to these websites: ? Centers for Disease Control and Prevention: www.cdc.gov ? [place] Heart Association: www.heart.org ? National Heart, Lung, and Blood [place]: www.nhlbi.nih.gov Summary ? Body mass index (BMI) is a number that is calculated from a person's weight and height. ? BMI may help estimate how much of a person's weight is composed of fat. BMI can help identify those who may be at higher risk for certain medical problems. ? BMI can be measured using Welsh measurements or metric measurements. ? BMI charts are used to identify whether you are underweight, normal weight, overweight, or obese. This information is not intended to replace advice given to you by your health care provider. Make sure you discuss any questions you have with your health care provider. Document Revised: 11/07/2019 Document Reviewed: 09/14/2019 [employer] Patient Education ? 2022 [employer]. [facility] CBC W Auto Differential pane l (Bld)on 05-02-2023 Basophils (Bld) [#/Vol] 10*3/uL Normal <0.11 [facility] Comment on above: Order Comment: Speci men Type: BLOOD SPECIMENOrdering Facility: [facility] Address: [address] [place] [address] Performed By: #### 5 7021-8 ####[facility] LABCLIA [id number] [place] [address] Basophils/100 WBC (Bld) 0.8 % Normal [facility] Comment on above: Order Comment: Speci men Type: BLOOD SPECIMENOrdering Facility: [facility] Address: [address] [place] [address] Performed By: #### 5 7021-8 ####[facility] LABCLIA [id number] [place] [address] Differential cell count method Nom (Bld) Auto Normal [facility] Comment on above: Order Comment: Speci men Type: BLOOD SPECIMENOrdering Facility: [facility] Address: [address] [place] [address] Performed By: #### 5 7021-8 ####[facility] LABCLIA [id number] [place] [address] Eosinophils (Bld) [#/Vol] 10*3/uL Normal <0.46 [facility] Comment on above: Order Comment: Speci men Type: BLOOD SPECIMENOrdering Facility: [facility] Address: [address] [place] [address] Performed By: #### 5 7021-8 ####[facility] LABCLIA [id number] [place] [address] Eosinophils/100 WBC (Bld) 0.8 % Normal [facility] Comment on above: Order Comment: Speci men Type: BLOOD SPECIMENOrdering Facility: [facility] Address: [address] [place] [address] Performed By: #### 5 7021-8 ####[facility] LABCLIA [id number] [place] [address] Erythrocyte distribution width (RBC) [Ratio] 14.6 % Normal 11.5-15.0 [facility] Comment on above: Order Comment: Speci men Type: BLOOD SPECIMENOrdering Facility: [facility] Address: [address] [place] [address] Performed By: #### 5 7021-8 ####[facility] LABCLIA [id number] [place] [address] Hematocrit (Bld) [Volume fraction] 33.0 % Low 36.0-46.0 [facility] Comment on above: Order Comment: Speci men Type: BLOOD SPECIMENOrdering Facility: [facility] Address: [address] [place] [address] Performed By: #### 5 7021-8 ####[facility] LABCLIA [id number] [place] [address] Hemoglobin (Bld) [Mass/Vol] 11.0 g/dL Low 11.5-15.5 [facility] Comment on above: Order Comment: Speci men Type: BLOOD SPECIMENOrdering Facility: [facility] Address: [address] [place] [address] Performed By: #### 5 7021-8 ####[facility] LABCLIA [id number] [place] [address] Immature granulocytes (Bld) [#/Vol] 10*3/uL Normal <0.10 [facility] Comment on above: Order Comment: Speci men Type: BLOOD SPECIMENOrdering Facility: [facility] Address: [address] [place] [address] Performed By: #### 5 7021-8 ####[facility] LABCLIA [id number] [place] [address] Immature granulocytes/100 WBC (Bld) 0.0 % Normal [facility] Comment on above: Order Comment: Speci men Type: BLOOD SPECIMENOrdering Facility: [facility] Address: [address] [place] [address] Performed By: #### 5 7021-8 ####[facility] LABCLIA [id number] [place] [address] Lymphocytes (Bld) [#/Vol] 1.08 10*3/uL Normal 1.00-4.00 [facility] Comment on above: Order Comment: Speci men Type: BLOOD SPECIMENOrdering Facility: [facility] Address: [address] [place] [address] Performed By: #### 5 7021-8 ####[facility] LABCLIA [id number] [place] [address] Lymphocytes/100 WBC (Bld) 41.7 % Normal [facility] Comment on above: Order Comment: Speci men Type: BLOOD SPECIMENOrdering Facility: [facility] Address: [address] [place] [address] Performed By: #### 5 7021-8 ####[facility] LABCLIA [id number] [place] [address] MCH (RBC) [Entitic mass] 33.4 pg Normal 26.0-34.0 [facility] Comment on above: Order Comment: Speci men Type: BLOOD SPECIMENOrdering Facility: [facility] Address: [address] [place] [address] Performed By: #### 5 7021-8 ####[facility] LABCLIA [id number] [place] [address] MCHC (RBC) [Mass/Vol] 33.3 g/dL Normal 30.5-36.0 [facility] Comment on above: Order Comment: Speci men Type: BLOOD SPECIMENOrdering Facility: [facility] Address: [address] [place] [address] Performed By: #### 5 7021-8 ####[facility] LABCLIA [id number] [place] [address] MCV (RBC) [Entitic vol] 100.3 fL High 80.0-100.0 [facility] Comment on above: Order Comment: Speci men Type: BLOOD SPECIMENOrdering Facility: [facility] Address: [address] [place] [address] Performed By: #### 5 7021-8 ####[facility] LABCLIA [id number] [place] [address] Monocytes (Bld) [#/Vol] 0.28 10*3/uL Normal <0.87 [facility] Comment on above: Order Comment: Speci men Type: BLOOD SPECIMENOrdering Facility: [facility] Address: [address] [place] [address] Performed By: #### 5 7021-8 ####[facility] LABCLIA [id number] [place] [address] Monocytes/100 WBC (Bld) 10.8 % Normal [facility] Comment on above: Order Comment: Speci men Type: BLOOD SPECIMENOrdering Facility: [facility] Address: [address] [place] [address] Performed By: #### 5 7021-8 ####[facility] LABCLIA [id number] [place] [address] Neutrophils (Bld) [#/Vol] 1.19 10*3/uL Low 1.45-7.50 [facility] Comment on above: Order Comment: Speci men Type: BLOOD SPECIMENOrdering Facility: [facility] Address: [address] [place] [address] Performed By: #### 5 7021-8 ####[facility] LABCLIA [id number] [place] [address] Neutrophils/100 WBC (Bld) 45.9 % Normal [facility] Comment on above: Order Comment: Speci men Type: BLOOD SPECIMENOrdering Facility: [facility] Address: [address] [place] [address] Performed By: #### 5 7021-8 ####[facility] LABCLIA [id number] [place] [address] Nucleated RBC (Bld) [#/Vol] 10*3/uL Normal <0.01 [facility] Comment on above: Order Comment: Speci men Type: BLOOD SPECIMENOrdering Facility: [facility] Address: [address] [place] [address] Performed By: #### 5 7021-8 ####[facility] LABCLIA [id number] [place] [address] Nucleated RBC/100 WBC (Bld) [Ratio] 0.0 /100 WBC Normal [facility] Comment on above: Order Comment: Speci men Type: BLOOD SPECIMENOrdering Facility: [facility] Address: [address] [place] [address] Performed By: #### 5 7021-8 ####[facility] LABCLIA [id number] [place] [address] Platelet mean volume (Bld) [Entitic vol] 9.2 fL Normal 9.0-12.7 [facility] Comment on above: Order Comment: Speci men Type: BLOOD SPECIMENOrdering Facility: [facility] Address: [address] [place] [address] Performed By: #### 5 7021-8 ####[facility] LABCLIA [id number] [place] [address] Platelets (Bld) [#/Vol] 150 10*3/uL Normal 150-400 [facility] Comment on above: Order Comment: Speci men Type: BLOOD SPECIMENOrdering Facility: [facility] Address: [address] [place] [address] Performed By: #### 5 7021-8 ####[facility] LABCLIA [id number] [place] [address] RBC (Bld) [#/Vol] 3.29 10*6/uL Low 3.90-5.20 [facility] Comment on above: Order Comment: Speci men Type: BLOOD SPECIMENOrdering Facility: [facility] Address: [address] [place] [address] Performed By: #### 5 7021-8 ####[facility] LABCLIA [id number] [place] [address] WBC (Bld) [#/Vol] 2.59 10*3/uL Low 3.70-11.00 [facility] Comment on above: Order Comment: Speci men Type: BLOOD SPECIMENOrdering Facility: [facility] Address: [address] [place] [address] Performed By: #### 5 7021-8 ####[facility] LABIA [id number] [place] [address] CNOVSPon 05-02-2023 CNOVSP Normal [facility] CNPNon 05-02-2023 CNPN Normal [facility] CT CHEST W IVCONon CT CHEST W IVCON Normal [facility] Cancer Ag15-3 SerPl-aCncon 0 05-02-2023 Cancer Ag 15-3 Qn 17.6 U/mL Normal <26.0 [facility] Comment on above: Order Comment: Speci men Type: BLOOD SPECIMENOrdering Facility: [facility] Address: [address] [place] [address] Result Comment: The CA 15-3 test methodology used is the Electrochemiluminescence Immunoassay by [employer]. Results obtained with different methods or kits cannot be used interchangeably. Performed By: #### 6 875-9 ####[facility] LABCLIA [id number] [place] [address] [place] Cancer Ag27-29 SerPl-aCncon 05-02-2023 Cancer Ag 27-29 Qn 21.0 [arb'U]/mL Normal <38.6 [facility] Comment on above: Order Comment: Speci men Type: BLOOD SPECIMENOrdering Facility: [facility] Address: [facility] [place] [address] Result Comment: The CA27.29 test was performed using the Siemens Centaur XP chemiluminometric immunoassay method. Results obtained with different assay methods or kits cannot be used interchangeably. Performed By: #### 1 7842-6 ####[facility] LABCLIA [id number] [place] [address] [facility] Comprehensive metabolic 2000 panelon 05-02-2023 Albumin [Mass/Vol] 4.3 g/dL Normal 3.9-4.9 [facility] Comment on above: Order Comment: Speci men Type: BLOOD SPECIMENOrdering Facility: [facility] Address: [address] [place] [address] Performed By: #### 2 4323-8 ####[facility] LABCLIA [id number] [place] [address] ALP [Catalytic activity/Vol] 74 U/L Normal 34-123 [facility] Comment on above: Order Comment: Speci men Type: BLOOD SPECIMENOrdering Facility: [facility] Address: [address] [place] [address] Performed By: #### 2 4323-8 ####[facility] LABCLIA [id number] [place] [address] ALT [Catalytic activity/Vol] 12 U/L Normal 7-38 [facility] Comment on above: Order Comment: Speci men Type: BLOOD SPECIMENOrdering Facility: [facility] Address: [address] [place] [address] Performed By: #### 2 4323-8 ####[facility] LABCLIA [id number] [place] [address] Anion gap [Moles/Vol] 10 mmol/L Normal 9-18 [facility] Comment on above: Order Comment: Speci men Type: BLOOD SPECIMENOrdering Facility: [facility] Address: [address] [place] [address] Performed By: #### 2 4323-8 ####[facility] LABCLIA [id number] [place] [address] AST [Catalytic activity/Vol] 14 U/L Normal 13-35 [facility] Comment on above: Order Comment: Speci men Type: BLOOD SPECIMENOrdering Facility: [facility] Address: [address] [place] [address] Performed By: #### 2 4323-8 ####[facility] LABCLIA [id number] [place] [address] Bilirubin [Mass/Vol] 0.2 mg/dL Normal 0.2-1.3 [facility] Comment on above: Order Comment: Speci men Type: BLOOD SPECIMENOrdering Facility: [facility] Address: [address] [place] [address] Performed By: #### 2 4323-8 ####[facility] LABCLIA [id number] [place] [address] Calcium [Mass/Vol] 10.7 mg/dL High 8.5-10.2 [facility] Comment on above: Order Comment: Speci men Type: BLOOD SPECIMENOrdering Facility: [facility] Address: [address] [place] [address] Performed By: #### 2 4323-8 ####[facility] LABCLIA [id number] [place] [address] Chloride [Moles/Vol] 105 mmol/L Normal 97-105 [facility] Comment on above: Order Comment: Speci men Type: BLOOD SPECIMENOrdering Facility: [facility] Address: [address] [place] [address] Performed By: #### 2 4323-8 ####[facility] LABCLIA [id number] [place] [address] CO2 [Moles/Vol] 24 mmol/L Normal 22-30 [facility] Comment on above: Order Comment: Speci men Type: BLOOD SPECIMENOrdering Facility: [facility] Address: [address] [id number] Performed By: #### 2 4323-8 ####[facility] LABCLIA [id number] [place] [address] Creatinine [Mass/Vol] 1.18 mg/dL High 0.58-0.96 [facility] Comment on above: Order Comment: Speci men Type: BLOOD SPECIMENOrdering Facility: [facility] Address: [address] [place] [address] Performed By: #### 2 4323-8 ####[facility] LABCLIA [id number] [place] [address] Creatinine and Glomerular filtration rate.predicted panel (S/P/Bld) 50 mL/min/1.73m??? Low >=60 [facility] Comment on above: Order Comment: Speci men Type: BLOOD SPECIMENOrdering Facility: [facility] Address: [address] [place] [address] Result Comment: Polina mated Glomerular Filtration Rate (eGFR) is calculated using the 2020 CKD-EPI creatinine equation. This equation utilizes serum creatinine, sex, and age as parameters. The creatinine assay has traceable calibration to isotope dilution-mass spectrometry. Refer to KDIGO guidelines for clinical interpretation. In patients with unstable renal function, e.g. those with acute kidney injury, the eGFR may not accurately reflect actual GFR. Performed By: #### 2 4323-8 ####[facility] LABIA [id number] [place] [address] Glucose [Mass/Vol] 84 mg/dL Normal 74-99 [facility] Comment on above: Order Comment: Speci men Type: BLOOD SPECIMENOrdering Facility: [facility] Address: [address] [place] [address] Result Comment: The [place] Diabetes Association (ADA) provides guidance for cutoff values for fasting glucose and random glucose. The ADA defines fasting as no caloric intake for at least 8 hours. Fasting plasma glucose results between 100 to 125 mg/dL indicate increased risk for diabetes (prediabetes).Fasting plasma glucose results greater than or equal to 126 mg/dL meet the criteria for diagnosis of diabetes. In the absence of unequivocal hyperglycemia, results should be confirmed by repeat testing. In a patient with classic symptoms of hyperglycemia or hyperglycemic crisis, random plasma glucose results greater than or equal to 200 mg/dL meet the criteria for diagnosis of diabetes.Reference: Standards of Medical Care in Diabetes 2016, [place] Diabetes Association. Diabetes Care. 2016.39(Suppl 1). Performed By: #### 2 4323-8 ####[facility] LABCLIA [id number] [place] [address] Potassium [Moles/Vol] 4.3 mmol/L Normal 3.7-5.1 [facility] Comment on above: Order Comment: Speci men Type: BLOOD SPECIMENOrdering Facility: [facility] Address: [address] [place] [address] Performed By: #### 2 4323-8 ####[facility] LABCLIA [id number] [place] [address] Protein [Mass/Vol] 6.9 g/dL Normal 6.3-8.0 [facility] Comment on above: Order Comment: Speci men Type: BLOOD SPECIMENOrdering Facility: [facility] Address: [address] [place] [address] Performed By: #### 2 4323-8 ####[facility] LABCLIA [id number] [place] [address] Sodium [Moles/Vol] 139 mmol/L Normal 136-144 [facility] Comment on above: Order Comment: Speci men Type: BLOOD SPECIMENOrdering Facility: [facility] Address: [address] [place] [address] Performed By: #### 2 4323-8 ####[facility] LABCLIA [id number] [place] [address] Urea nitrogen [Mass/Vol] 26 mg/dL High 7-21 [facility] Comment on above: Order Comment: Speci men Type: BLOOD SPECIMENOrdering Facility: [facility] Address: [address] [place] [address] Performed By: #### 2 4323-8 ####[facility] LABCLIA [id number] [place] [address] CBC W Auto Differential pane l (Bld)on 04-11-2023 Basophils (Bld) [#/Vol] <0.11 k/uL [facility] Basophils/100 WBC (Bld) 0.4 % [facility] Differential cell count method Nom (Bld) Auto [facility] Eosinophils (Bld) [#/Vol] 0.04 10*3/uL <0.46 k/uL [facility] Eosinophils/100 WBC (Bld) 1.4 % [facility] Erythrocyte distribution width (RBC) [Ratio] 13.3 % 11.5 - 15.0 % [facility] Hematocrit (Bld) [Volume fraction] 34.6 % Low 36.0 - 46.0 % [facility] Hemoglobin (Bld) [Mass/Vol] 11.4 g/dL Low 11.5 - 15.5 g/dL [facility] Immature granulocytes (Bld) [#/Vol] <0.10 k/uL [facility] Immature granulocytes/100 WBC (Bld) 0.4 % [facility] Lymphocytes (Bld) [#/Vol] 0.87 10*3/uL Low 1.00 - 4.00 k/uL [facility] Lymphocytes/100 WBC (Bld) 31.0 % [facility] MCH (RBC) [Entitic mass] 33.3 pg 26.0 - 34.[address] [facility] MCHC (RBC) [Mass/Vol] 32.9 g/dL 30.5 - 36.0 g/dL [facility] MCV (RBC) [Entitic vol] 101.2 fL High 80.0 - 100.[address] [facility] Monocytes (Bld) [#/Vol] 0.17 10*3/uL <0.87 k/uL [facility] Monocytes/100 WBC (Bld) 6.0 % [facility] Neutrophils (Bld) [#/Vol] 1.71 10*3/uL 1.45 - 7.50 k/uL [facility] Neutrophils/100 WBC (Bld) 60.8 % [facility] Nucleated RBC (Bld) [#/Vol] <0.01 k/uL [facility] Nucleated RBC/100 WBC (Bld) [Ratio] 0.0 /[address] [facility] Platelet mean volume (Bld) [Entitic vol] 9.6 fL 9.0 - 12.[address] [facility] Platelets (Bld) [#/Vol] 139 10*3/uL Low 150 - 400 k/uL [facility] RBC (Bld) [#/Vol] 3.42 10*6/uL Low 3.90 - 5.20 m/uL [facility] WBC (Bld) [#/Vol] 2.81 10*3/uL Low 3.70 - 11.00 k/u L [facility] Basophils (Bld) [#/Vol] 10*3/uL Normal <0.11 [facility] Comment on above: Order Comment: Speci men Type: BLOOD SPECIMENOrdering Facility: [facility] Address: [address] [place] [address] Performed By: #### 5 7021-8 ####[facility] LABCLIA [id number] [place] [address] Basophils/100 WBC (Bld) 0.4 % Normal [facility] Comment on above: Order Comment: Speci men Type: BLOOD SPECIMENOrdering Facility: [facility] Address: [address] [place] [address] Performed By: #### 5 7021-8 ####[facility] LABCLIA [id number] [place] [address] Differential cell count method Nom (Bld) Auto Normal [facility] Comment on above: Order Comment: Speci men Type: BLOOD SPECIMENOrdering Facility: [facility] Address: [address] [place] [address] Performed By: #### 5 7021-8 ####[facility] LABCLIA [id number] [place] [address] Eosinophils (Bld) [#/Vol] 0.04 10*3/uL Normal <0.46 [facility] Comment on above: Order Comment: Speci men Type: BLOOD SPECIMENOrdering Facility: [facility] Address: [address] [place] [address] Performed By: #### 5 7021-8 ####[facility] LABCLIA [id number] [place] [address] Eosinophils/100 WBC (Bld) 1.4 % Normal [facility] Comment on above: Order Comment: Speci men Type: BLOOD SPECIMENOrdering Facility: [facility] Address: [address] [place] [address] Performed By: #### 5 7021-8 ####[facility] LABCLIA [id number] [place] [address] Erythrocyte distribution width (RBC) [Ratio] 13.3 % Normal 11.5-15.0 [facility] Comment on above: Order Comment: Speci men Type: BLOOD SPECIMENOrdering Facility: [facility] Address: [address] [place] [address] Performed By: #### 5 7021-8 ####[facility] LABCLIA [id number] [place] [address] Hematocrit (Bld) [Volume fraction] 34.6 % Low 36.0-46.0 [facility] Comment on above: Order Comment: Speci men Type: BLOOD SPECIMENOrdering Facility: [facility] Address: [address] [place] [address] Performed By: #### 5 7021-8 ####[facility] LABCLIA [id number] [place] [address] Hemoglobin (Bld) [Mass/Vol] 11.4 g/dL Low 11.5-15.5 [facility] Comment on above: Order Comment: Speci men Type: BLOOD SPECIMENOrdering Facility: [facility] Address: [address] [place] [address] Performed By: #### 5 7021-8 ####[facility] LABCLIA [id number] [place] [address] Immature granulocytes (Bld) [#/Vol] 10*3/uL Normal <0.10 [facility] Comment on above: Order Comment: Speci men Type: BLOOD SPECIMENOrdering Facility: [facility] Address: [address] [place] [address] Performed By: #### 5 7021-8 ####[facility] LABCLIA [id number] [place] [address] Immature granulocytes/100 WBC (Bld) 0.4 % Normal [facility] Comment on above: Order Comment: Speci men Type: BLOOD SPECIMENOrdering Facility: [facility] Address: [address] [place] [address] Performed By: #### 5 7021-8 ####[facility] LABCLIA [id number] [place] [address] Lymphocytes (Bld) [#/Vol] 0.87 10*3/uL Low 1.00-4.00 [facility] Comment on above: Order Comment: Speci men Type: BLOOD SPECIMENOrdering Facility: [facility] Address: [address] [place] [address] Performed By: #### 5 7021-8 ####[facility] LABCLIA [id number] [place] [address] Lymphocytes/100 WBC (Bld) 31.0 % Normal [facility] Comment on above: Order Comment: Speci men Type: BLOOD SPECIMENOrdering Facility: [facility] Address: [address] [place] [address] Performed By: #### 5 7021-8 ####[facility] LABCLIA [id number] [place] [address] MCH (RBC) [Entitic mass] 33.3 pg Normal 26.0-34.0 [facility] Comment on above: Order Comment: Speci men Type: BLOOD SPECIMENOrdering Facility: [facility] Address: [address] [place] [address] Performed By: #### 5 7021-8 ####[facility] LABCLIA [id number] [place] [address] MCHC (RBC) [Mass/Vol] 32.9 g/dL Normal 30.5-36.0 [facility] Comment on above: Order Comment: Speci men Type: BLOOD SPECIMENOrdering Facility: [facility] Address: [address] [place] [address] Performed By: #### 5 7021-8 ####[facility] LABCLIA [id number] [place] [address] MCV (RBC) [Entitic vol] 101.2 fL High 80.0-100.0 [facility] Comment on above: Order Comment: Speci men Type: BLOOD SPECIMENOrdering Facility: [facility] Address: [address] [place] [address] Performed By: #### 5 7021-8 ####[facility] LABCLIA [id number] [place] [address] Monocytes (Bld) [#/Vol] 0.17 10*3/uL Normal <0.87 [facility] Comment on above: Order Comment: Speci men Type: BLOOD SPECIMENOrdering Facility: [facility] Address: [address] [place] [address] Performed By: #### 5 7021-8 ####[facility] LABCLIA [id number] [place] [address] Monocytes/100 WBC (Bld) 6.0 % Normal [facility] Comment on above: Order Comment: Speci men Type: BLOOD SPECIMENOrdering Facility: [facility] Address: [address] [place] [address] Performed By: #### 5 7021-8 ####[facility] LABCLIA [id number] [place] [address] Neutrophils (Bld) [#/Vol] 1.71 10*3/uL Normal 1.45-7.50 [facility] Comment on above: Order Comment: Speci men Type: BLOOD SPECIMENOrdering Facility: [facility] Address: [address] [place] [address] Performed By: #### 5 7021-8 ####[facility] LABCLIA [id number] [place] [address] Neutrophils/100 WBC (Bld) 60.8 % Normal [facility] Comment on above: Order Comment: Speci men Type: BLOOD SPECIMENOrdering Facility: [facility] Address: [address] [place] [address] Performed By: #### 5 7021-8 ####[facility] LABCLIA [id number] [place] [address] Nucleated RBC (Bld) [#/Vol] 10*3/uL Normal <0.01 [facility] Comment on above: Order Comment: Speci men Type: BLOOD SPECIMENOrdering Facility: [facility] Address: [address] [place] [address] Performed By: #### 5 7021-8 ####[facility] LABCLIA [id number] [place] [address] Nucleated RBC/100 WBC (Bld) [Ratio] 0.0 /100 WBC Normal [facility] Comment on above: Order Comment: Speci men Type: BLOOD SPECIMENOrdering Facility: [facility] Address: [address] [place] [address] Performed By: #### 5 7021-8 ####[facility] LABCLIA [id number] [place] [address] Platelet mean volume (Bld) [Entitic vol] 9.6 fL Normal 9.0-12.7 [facility] Comment on above: Order Comment: Speci men Type: BLOOD SPECIMENOrdering Facility: [facility] Address: [address] [place] [address] Performed By: #### 5 7021-8 ####[facility] LABCLIA [id number] [place] [address] Platelets (Bld) [#/Vol] 139 10*3/uL Low 150-400 [facility] Comment on above: Order Comment: Speci men Type: BLOOD SPECIMENOrdering Facility: [facility] Address: [address] [place] [address] Performed By: #### 5 7021-8 ####[facility] [id number] [place] [address] RBC (Bld) [#/Vol] 3.42 10*6/uL Low 3.90-5.20 [facility] Comment on above: Order Comment: Speci men Type: BLOOD SPECIMENOrdering Facility: [facility] Address: [address] [place] [address] Performed By: #### 5 7021-8 ####[facility] [id number] [place] [address] WBC (Bld) [#/Vol] 2.81 10*3/uL Low 3.70-11.00 [facility] Comment on above: Order Comment: Speci men Type: BLOOD SPECIMENOrdering Facility: [facility] Address: [address] [place] [address] Performed By: #### 5 7021-8 ####[facility] [id number] [place] [address] CNOVSPon 04-11-2023 CNOVSP Normal [facility] Comprehensive metabolic 2000 panelon 04-11-2023 Albumin [Mass/Vol] 4.1 g/dL 3.9 - 4.9 g/dL [facility] ALP [Catalytic activity/Vol] 87 U/L 34 - 123 U/L [facility] ALT [Catalytic activity/Vol] 11 U/L 7 - 38 U/L [facility] Anion gap [Moles/Vol] 10 mmol/L 9 - 18 mmol/L [facility] AST [Catalytic activity/Vol] 12 U/L Low 13 - 35 U/L [facility] Bilirubin [Mass/Vol] 0.2 mg/dL 0.2 - 1.3 mg/dL [facility] Calcium [Mass/Vol] 10.6 mg/dL High 8.5 - 10.2 mg/dL [facility] Chloride [Moles/Vol] 105 mmol/L 97 - 105 mmol/L [facility] CO2 [Moles/Vol] 26 mmol/L 22 - 30 mmol/L [facility] Creatinine [Mass/Vol] 1.29 mg/dL High 0.58 - 0.96 mg/dL [facility] Estimated Glomerular Filtration Rate 45 mL/min/1.73m Low >=60 mL/min/1.73m [facility] Glucose [Mass/Vol] 156 mg/dL High 74 - 99 mg/dL [facility] Potassium [Moles/Vol] 4.0 mmol/L 3.7 - 5.1 mmol/L [facility] Protein [Mass/Vol] 6.9 g/dL 6.3 - 8.0 g/dL [facility] Sodium [Moles/Vol] 141 mmol/L 136 - 144 mmol/L [facility] Urea nitrogen [Mass/Vol] 24 mg/dL High 7 - 21 mg/dL [facility] Albumin [Mass/Vol] 4.1 g/dL Normal 3.9-4.9 [facility] Comment on above: Order Comment: Speci men Type: BLOOD SPECIMENOrdering Facility: [facility] Address: [address] [place] [address] Performed By: #### 2 4323-8 ####[facility] LABCLIA [id number] [place] [address] ALP [Catalytic activity/Vol] 87 U/L Normal 34-123 [facility] Comment on above: Order Comment: Speci men Type: BLOOD SPECIMENOrdering Facility: [facility] Address: [address] [place] [address] Performed By: #### 2 4323-8 ####[facility] LABCLIA [id number] [place] [address] ALT [Catalytic activity/Vol] 11 U/L Normal 7-38 [facility] Comment on above: Order Comment: Speci men Type: BLOOD SPECIMENOrdering Facility: [facility] Address: [address] [place] [address] Performed By: #### 2 4323-8 ####[facility] LABCLIA [id number] [place] [address] Anion gap [Moles/Vol] 10 mmol/L Normal 9-18 [facility] Comment on above: Order Comment: Speci men Type: BLOOD SPECIMENOrdering Facility: [facility] Address: [address] [place] [address] Performed By: #### 2 4323-8 ####[facility] LABCLIA [id number] [place] [address] AST [Catalytic activity/Vol] 12 U/L Low 13-35 [facility] Comment on above: Order Comment: Speci men Type: BLOOD SPECIMENOrdering Facility: [facility] Address: [address] [place] [address] Performed By: #### 2 4323-8 ####[facility] LABCLIA [id number] [place] [address] Bilirubin [Mass/Vol] 0.2 mg/dL Normal 0.2-1.3 [facility] Comment on above: Order Comment: Speci men Type: BLOOD SPECIMENOrdering Facility: [facility] Address: [address] [place] [address] Performed By: #### 2 4323-8 ####[facility] LABCLIA [id number] [place] [address] Calcium [Mass/Vol] 10.6 mg/dL High 8.5-10.2 [facility] Comment on above: Order Comment: Speci men Type: BLOOD SPECIMENOrdering Facility: [facility] Address: [address] [place] [address] Performed By: #### 2 4323-8 ####[facility] LABCLIA [id number] [place] [address] Chloride [Moles/Vol] 105 mmol/L Normal 97-105 [facility] Comment on above: Order Comment: Speci men Type: BLOOD SPECIMENOrdering Facility: [facility] Address: [address] [place] [address] Performed By: #### 2 4323-8 ####[facility] LABCLIA [id number] [place] [address] CO2 [Moles/Vol] 26 mmol/L Normal 22-30 [facility] Comment on above: Order Comment: Speci men Type: BLOOD SPECIMENOrdering Facility: [facility] Address: [address] [place] [address] Performed By: #### 2 4323-8 ####[facility] LABCLIA [id number] [place] [address] Creatinine [Mass/Vol] 1.29 mg/dL High 0.58-0.96 [facility] Comment on above: Order Comment: Speci men Type: BLOOD SPECIMENOrdering Facility: [facility] Address: [address] [place] [address] Performed By: #### 2 4323-8 ####[facility] LABCLIA [id number] [place] [address] Creatinine and Glomerular filtration rate.predicted panel (S/P/Bld) 45 mL/min/1.73m??? Low >=60 [facility] Comment on above: Order Comment: Speci men Type: BLOOD SPECIMENOrdering Facility: [facility] Address: [address] [place] [address] Result Comment: Polina mated Glomerular Filtration Rate (eGFR) is calculated using the 2020 CKD-EPI creatinine equation. This equation utilizes serum creatinine, sex, and age as parameters. The creatinine assay has traceable calibration to isotope dilution-mass spectrometry. Refer to KDIGO guidelines for clinical interpretation. In patients with unstable renal function, e.g. those with acute kidney injury, the eGFR may not accurately reflect actual GFR. Performed By: #### 2 4323-8 ####[facility] LABCLIA [id number] [place] [address] Glucose [Mass/Vol] 156 mg/dL High 74-99 [facility] Comment on above: Order Comment: Speci men Type: BLOOD SPECIMENOrdering Facility: [facility] Address: [address] [place], [place] [address] Result Comment: The [place] [employer] (ADA) provides guidance for cutoff values for fasting glucose and random glucose. The ADA defines fasting as no caloric intake for at least 8 hours. Fasting plasma glucose results between 100 to 125 mg/dL indicate increased risk for diabetes (prediabetes).Fasting plasma glucose results greater than or equal to 126 mg/dL meet the criteria for diagnosis of diabetes. In the absence of unequivocal hyperglycemia, results should be confirmed by repeat testing. In a patient with classic symptoms of hyperglycemia or hyperglycemic crisis, random plasma glucose results greater than or equal to 200 mg/dL meet the criteria for diagnosis of diabetes.Reference: Standards of Medical Care in Diabetes 2016, [place] [employer]. Diabetes Care. 2016.39(Suppl 1). Performed By: #### 2 4323-8 ####[facility] LABCLIA [id number] [place] [address] Potassium [Moles/Vol] 4.0 mmol/L Normal 3.7-5.1 [facility] Comment on above: Order Comment: Speci men Type: BLOOD SPECIMENOrdering Facility: [facility] Address: [address] [place], [place] [address] Performed By: #### 2 4323-8 ####[facility] LABCLIA [id number] [place] [address] Protein [Mass/Vol] 6.9 g/dL Normal 6.3-8.0 [facility] Comment on above: Order Comment: Speci men Type: BLOOD SPECIMENOrdering Facility: [facility] Address: [address] [place] [address] Performed By: #### 2 4323-8 ####[facility] LABCLIA [id number] [place] [address] Sodium [Moles/Vol] 141 mmol/L Normal 136-144 [facility] Comment on above: Order Comment: Speci men Type: BLOOD SPECIMENOrdering Facility: [facility] Address: [address] [place] [address] Performed By: #### 2 4323-8 ####[facility] LABCLIA [id number] [place] [address] Urea nitrogen [Mass/Vol] 24 mg/dL High 7-21 [facility] Comment on above: Order Comment: Speci men Type: BLOOD SPECIMENOrdering Facility: [facility] Address: [address] [place] [address] Performed By: #### 2 4323-8 ####[facility] LABCLIA [id number] [place] [address] Consultation Noteon 04-11-19 Consultation Note [id number]#1.00T IFF Normal [facility] Consultation Note [id number]#1.00T IFF Normal [facility] Consultation Noteon 03-23-19 Consultation Note [id number]#1.00T IFF Normal [facility] CBC W Auto Differential pane l (Bld)on 03-21-2023 Basophils (Bld) [#/Vol] 10*3/uL Normal <0.11 [facility] Comment on above: Order Comment: Speci men Type: BLOOD SPECIMENOrdering Facility: [facility] Address: [address] [place] [address] Performed By: #### 5 7021-8 ####[facility] LABCLIA [id number] [place] [address] Basophils/100 WBC (Bld) 0.4 % Normal [facility] Comment on above: Order Comment: Speci men Type: BLOOD SPECIMENOrdering Facility: [facility] Address: [address] [place] [address] Performed By: #### 5 7021-8 ####[facility] LABCLIA [id number] [place] [address] Differential cell count method Nom (Bld) Auto Normal [facility] Comment on above: Order Comment: Speci men Type: BLOOD SPECIMENOrdering Facility: [facility] Address: [address] [place] [address] Performed By: #### 5 7021-8 ####[facility] LABCLIA [id number] [place] [address] Eosinophils (Bld) [#/Vol] 0.11 10*3/uL Normal <0.46 [facility] Comment on above: Order Comment: Speci men Type: BLOOD SPECIMENOrdering Facility: [facility] Address: [address] [place] [address] Performed By: #### 5 7021-8 ####[facility] LABCLIA [id number] [place] [address] Eosinophils/100 WBC (Bld) 2.1 % Normal [facility] Comment on above: Order Comment: Speci men Type: BLOOD SPECIMENOrdering Facility: [facility] Address: [address] [place] [address] Performed By: #### 5 7021-8 ####[facility] LABCLIA [id number] [place] [address] Erythrocyte distribution width (RBC) [Ratio] 14.2 % Normal 11.5-15.0 [facility] Comment on above: Order Comment: Speci men Type: BLOOD SPECIMENOrdering Facility: [facility] Address: [address] [place] [address] Performed By: #### 5 7021-8 ####[facility] LABCLIA [id number] [place] [address] Hematocrit (Bld) [Volume fraction] 33.8 % Low 36.0-46.0 [facility] Comment on above: Order Comment: Speci men Type: BLOOD SPECIMENOrdering Facility: [facility] Address: [address] [place] [address] Performed By: #### 5 7021-8 ####[facility] LABCLIA [id number] [place] [address] Hemoglobin (Bld) [Mass/Vol] 11.2 g/dL Low 11.5-15.5 [facility] Comment on above: Order Comment: Speci men Type: BLOOD SPECIMENOrdering Facility: [facility] Address: [address] [place] [address] Performed By: #### 5 7021-8 ####[facility] LABCLIA [id number] [place] [address] Immature granulocytes (Bld) [#/Vol] 10*3/uL Normal <0.10 [facility] Comment on above: Order Comment: Speci men Type: BLOOD SPECIMENOrdering Facility: [facility] Address: [address] [place] [address] Performed By: #### 5 7021-8 ####[facility] LABCLIA [id number] [place] [address] Immature granulocytes/100 WBC (Bld) 0.4 % Normal [facility] Comment on above: Order Comment: Speci men Type: BLOOD SPECIMENOrdering Facility: [facility] Address: [address] [place] [address] Performed By: #### 5 7021-8 ####[facility] LABCLIA [id number] [place] [address] Lymphocytes (Bld) [#/Vol] 1.07 10*3/uL Normal 1.00-4.00 [facility] Comment on above: Order Comment: Speci men Type: BLOOD SPECIMENOrdering Facility: [facility] Address: [address] [place] [address] Performed By: #### 5 7021-8 ####[facility]CLIA [id number] [place] [address] Lymphocytes/100 WBC (Bld) 20.9 % Normal [facility] Comment on above: Order Comment: Speci men Type: BLOOD SPECIMENOrdering Facility: [facility] Address: [address] [place] [address] Performed By: #### 5 7021-8 ####[facility] LABIA [id number] [place] [address] MCH (RBC) [Entitic mass] 34.4 pg High 26.0-34.0 [facility] Comment on above: Order Comment: Speci men Type: BLOOD SPECIMENOrdering Facility: [facility] Address: [address] [place] [address] Performed By: #### 5 7021-8 ####[facility] LABIA [id number] [place] [address] MCHC (RBC) [Mass/Vol] 33.1 g/dL Normal 30.5-36.0 [facility] Comment on above: Order Comment: Speci men Type: BLOOD SPECIMENOrdering Facility: [facility] Address: [address] [place] [address] Performed By: #### 5 7021-8 ####[facility] LABIA [id number] [place] [address] MCV (RBC) [Entitic vol] 103.7 fL High 80.0-100.0 [facility] Comment on above: Order Comment: Speci men Type: BLOOD SPECIMENOrdering Facility: [facility] Address: [address] [place] [address] Performed By: #### 5 7021-8 ####[facility] LABIA [id number] [place] [address] Monocytes (Bld) [#/Vol] 0.47 10*3/uL Normal <0.87 [facility] Comment on above: Order Comment: Speci men Type: BLOOD SPECIMENOrdering Facility: [facility] Address: [address] [place] [address] Performed By: #### 5 7021-8 ####[facility] LABCLIA [id number] [place] [address] Monocytes/100 WBC (Bld) 9.2 % Normal [facility] Comment on above: Order Comment: Speci men Type: BLOOD SPECIMENOrdering Facility: [facility] Address: [address] [place] [address] Performed By: #### 5 7021-8 ####[facility] LABCLIA [id number] [place] [address] Neutrophils (Bld) [#/Vol] 3.44 10*3/uL Normal 1.45-7.50 [facility] Comment on above: Order Comment: Speci men Type: BLOOD SPECIMENOrdering Facility: [facility] Address: [address] [place] [address] Performed By: #### 5 7021-8 ####[facility] LABCLIA [id number] [place] [address] Neutrophils/100 WBC (Bld) 67.0 % Normal [facility] Comment on above: Order Comment: Speci men Type: BLOOD SPECIMENOrdering Facility: [facility] Address: [address] [place] [address] Performed By: #### 5 7021-8 ####[facility] LABCLIA [id number] [place] [address] Nucleated RBC (Bld) [#/Vol] 10*3/uL Normal <0.01 [facility] Comment on above: Order Comment: Speci men Type: BLOOD SPECIMENOrdering Facility: [facility] Address: [address] [place] [address] Performed By: #### 5 7021-8 ####[facility]IA [id number] [place] [address] Nucleated RBC/100 WBC (Bld) [Ratio] 0.0 /100 WBC Normal [facility] Comment on above: Order Comment: Speci men Type: BLOOD SPECIMENOrdering Facility: [facility] Address: [address] [place] [address] Performed By: #### 5 7021-8 ####[facility] LABCLIA [id number] [place] [address] Platelet mean volume (Bld) [Entitic vol] 9.8 fL Normal 9.0-12.7 [facility] Comment on above: Order Comment: Speci men Type: BLOOD SPECIMENOrdering Facility: [facility] Address: [address] [place] [address] Performed By: #### 5 7021-8 ####[facility] LABCLIA [id number] [place] [address] Platelets (Bld) [#/Vol] 202 10*3/uL Normal 150-400 [facility] Comment on above: Order Comment: Speci men Type: BLOOD SPECIMENOrdering Facility: [facility] Address: [address] [place] [address] Performed By: #### 5 7021-8 ####[facility] LABCLIA [id number] [place] [address] RBC (Bld) [#/Vol] 3.26 10*6/uL Low 3.90-5.20 [facility] Comment on above: Order Comment: Speci men Type: BLOOD SPECIMENOrdering Facility: [facility] Address: [address] [place] [address] Performed By: #### 5 7021-8 ####[facility] LABCLIA [id number] [place] [address] WBC (Bld) [#/Vol] 5.13 10*3/uL Normal 3.70-11.00 [facility] Comment on above: Order Comment: Speci men Type: BLOOD SPECIMENOrdering Facility: [facility] Address: [address] [place] [address] Performed By: #### 5 7021-8 ####[facility] LABCLIA [id number] [place] [address] CNOVSPon 03-21-2023 CNOVSP Normal [facility] Cancer Ag15-3 SerPl-aCncon 0 03-21-2023 Cancer Ag 15-3 Qn 21.8 U/mL Normal <26.0 [facility] Comment on above: Order Comment: Speci men Type: BLOOD SPECIMENOrdering Facility: [facility] Address: [address] [place] [address] Result Comment: The CA 15-3 test methodology used is the Electrochemiluminescence Immunoassay by [employer]. Results obtained with different methods or kits cannot be used interchangeably. Performed By: #### 6 875-9 ####[facility] LABCLIA [id number] [address] OF [facility] Cancer Ag27-29 SerPl-aCncon 03-21-2023 Cancer Ag 27-29 Qn 25.2 [arb'U]/mL Normal <38.6 [facility] Comment on above: Order Comment: Speci men Type: BLOOD SPECIMENOrdering Facility: [facility] Address: [address] [place] [address] Result Comment: The CA27.29 test was performed using the Siem[employer] Portable Intern[employer]ur XP chemiluminometric immunoassay method. Results obtained with different assay methods or kits cannot be used interchangeably. Performed By: #### 1 7842-6 ####[facility] LABCLIA [id number] [place] [address] [place] Comprehensive metabolic 2000 panelon 03-21-2023 Albumin [Mass/Vol] 4.2 g/dL Normal 3.9-4.9 [facility] Comment on above: Order Comment: Speci men Type: BLOOD SPECIMENOrdering Facility: [facility] Address: [address] [place] [address] Performed By: #### 2 4323-8 ####[facility] LABCLIA [id number] [place] [address] ALP [Catalytic activity/Vol] 87 U/L Normal 34-123 [facility] Comment on above: Order Comment: Speci men Type: BLOOD SPECIMENOrdering Facility: [facility] Address: [address] [place] [address] Performed By: #### 2 4323-8 ####[facility] LABCLIA [id number] [place] [address] ALT [Catalytic activity/Vol] 11 U/L Normal 7-38 [facility] Comment on above: Order Comment: Speci men Type: BLOOD SPECIMENOrdering Facility: [facility] Address: [address] [place] [address] Performed By: #### 2 4323-8 ####[facility] LABCLIA [id number] [place] [address] Anion gap [Moles/Vol] 10 mmol/L Normal 9-18 [facility] Comment on above: Order Comment: Speci men Type: BLOOD SPECIMENOrdering Facility: [facility] Address: [address] [place] [address] Performed By: #### 2 4323-8 ####[facility] LABCLIA [id number] [place] [address] AST [Catalytic activity/Vol] 13 U/L Normal 13-35 [facility] Comment on above: Order Comment: Speci men Type: BLOOD SPECIMENOrdering Facility: [facility] Address: [address] [place] [address] Performed By: #### 2 4323-8 ####[facility] LABCLIA [id number] [place] [address] Bilirubin [Mass/Vol] 0.3 mg/dL Normal 0.2-1.3 [facility] Comment on above: Order Comment: Speci men Type: BLOOD SPECIMENOrdering Facility: [facility] Address: [address] [place] [address] Performed By: #### 2 4323-8 ####[facility] LABCLIA [id number] [place] [address] Calcium [Mass/Vol] 9.9 mg/dL Normal 8.5-10.2 [facility] Comment on above: Order Comment: Speci men Type: BLOOD SPECIMENOrdering Facility: [facility] Address: [address] [place] [address] Performed By: #### 2 4323-8 ####[facility] LABCLIA [id number] [place] [address] Chloride [Moles/Vol] 108 mmol/L High 97-105 [facility] Comment on above: Order Comment: Speci men Type: BLOOD SPECIMENOrdering Facility: [facility] Address: [address] [place] [address] Performed By: #### 2 4323-8 ####[facility] LABCLIA [id number] [place] [address] CO2 [Moles/Vol] 23 mmol/L Normal 22-30 [facility] Comment on above: Order Comment: Speci men Type: BLOOD SPECIMENOrdering Facility: [facility] Address: [address] [place] [address] Performed By: #### 2 4323-8 ####[facility] LABCLIA [id number] [place] [address] Creatinine [Mass/Vol] 0.95 mg/dL Normal 0.58-0.96 [facility] Comment on above: Order Comment: Speci men Type: BLOOD SPECIMENOrdering Facility: [facility] Address: [address] [place] [address] Performed By: #### 2 4323-8 ####[facility] LABCLIA [id number] [place] [address] Creatinine and Glomerular filtration rate.predicted panel (S/P/Bld) 65 mL/min/1.73m??? Normal >=60 [facility] Comment on above: Order Comment: Speci men Type: BLOOD SPECIMENOrdering Facility: [facility] Address: [address] [place] [address] Result Comment: Polina mated Glomerular Filtration Rate (eGFR) is calculated using the 2020 CKD-EPI creatinine equation. This equation utilizes serum creatinine, sex, and age as parameters. The creatinine assay has traceable calibration to isotope dilution-mass spectrometry. Refer to KDIGO guidelines for clinical interpretation. In patients with unstable renal function, e.g. those with acute kidney injury, the eGFR may not accurately reflect actual GFR. Performed By: #### 2 4323-8 ####[facility] LABCLIA [id number] [place] [address] Glucose [Mass/Vol] 98 mg/dL Normal 74-99 [facility] Comment on above: Order Comment: Speci men Type: BLOOD SPECIMENOrdering Facility: [facility] Address: [address] [place] [address] Result Comment: The [place] Diabetes Association (ADA) provides guidance for cutoff values for fasting glucose and random glucose. The ADA defines fasting as no caloric intake for at least 8 hours. Fasting plasma glucose results between 100 to 125 mg/dL indicate increased risk for diabetes (prediabetes).Fasting plasma glucose results greater than or equal to 126 mg/dL meet the criteria for diagnosis of diabetes. In the absence of unequivocal hyperglycemia, results should be confirmed by repeat testing. In a patient with classic symptoms of hyperglycemia or hyperglycemic crisis, random plasma glucose results greater than or equal to 200 mg/dL meet the criteria for diagnosis of diabetes.Reference: Standards of Medical Care in Diabetes 2016, [place] Diabetes Association. Diabetes Care. 2016.39(Suppl 1). Performed By: #### 2 4323-8 ####[facility] LABCLIA [id number] [place] [address] Potassium [Moles/Vol] 4.0 mmol/L Normal 3.7-5.1 [facility] Comment on above: Order Comment: Speci men Type: BLOOD SPECIMENOrdering Facility: [facility] Address: [address] [place] [address] Performed By: #### 2 4323-8 ####[facility] LABCLIA [id number] [place] [address] Protein [Mass/Vol] 7.0 g/dL Normal 6.3-8.0 [facility] Comment on above: Order Comment: Speci men Type: BLOOD SPECIMENOrdering Facility: [facility] Address: [address] [place] [address] Performed By: #### 2 4323-8 ####[facility] LABCLIA [id number] [place] [address] Sodium [Moles/Vol] 141 mmol/L Normal 136-144 [facility] Comment on above: Order Comment: Speci men Type: BLOOD SPECIMENOrdering Facility: [facility] Address: [address] [place] [address] Performed By: #### 2 4323-8 ####[facility] LABCLIA [id number] [place] [address] Urea nitrogen [Mass/Vol] 23 mg/dL High 7-21 [facility] Comment on above: Order Comment: Speci men Type: BLOOD SPECIMENOrdering Facility: [facility] Address: [address] [place] [address] Performed By: #### 2 4323-8 ####[facility] LABCLIA [id number] [place] [address] Consultation Noteon 03-02-19 Consultation Note [id number]#1.00T IFF Normal [facility] CNPNon 03-01-2023 CNPN Normal [facility] Consultation Noteon 03-01-19 Consultation Note [id number]#1.00T IFF Normal [facility] Immunization Recordson 03-01 Immunization Records [id number]#1.00T IFF Normal [facility] CBC W Auto Differential pane l (Bld)on 02-24-2023 Basophils (Bld) [#/Vol] 10*3/uL Normal <0.11 [facility] Comment on above: Order Comment: Speci men Type: BLOOD SPECIMENOrdering Facility: [facility] Address: [address] [place] [address] Performed By: #### 5 7021-8 ####[facility] LABCLIA [id number] [place] [address] Basophils/100 WBC (Bld) 0.7 % Normal [facility] Comment on above: Order Comment: Speci men Type: BLOOD SPECIMENOrdering Facility: [facility] Address: [address] [place] [address] Performed By: #### 5 7021-8 ####[facility] LABCLIA [id number] [place] [address] Differential cell count method Nom (Bld) Auto Normal [facility] Comment on above: Order Comment: Speci men Type: BLOOD SPECIMENOrdering Facility: [facility] Address: [address] [place] [address] Performed By: #### 5 7021-8 ####[facility] LABCLIA [id number] [place] [address] Eosinophils (Bld) [#/Vol] 0.04 10*3/uL Normal <0.46 [facility] Comment on above: Order Comment: Speci men Type: BLOOD SPECIMENOrdering Facility: [facility] Address: [address] [place] [address] Performed By: #### 5 7021-8 ####[facility] LABCLIA [id number] [place] [address] Eosinophils/100 WBC (Bld) 1.4 % Normal [facility] Comment on above: Order Comment: Speci men Type: BLOOD SPECIMENOrdering Facility: [facility] Address: [address] [place] [address] Performed By: #### 5 7021-8 ####[facility] LABCLIA [id number] [place] [address] Erythrocyte distribution width (RBC) [Ratio] 16.2 % High 11.5-15.0 [facility] Comment on above: Order Comment: Speci men Type: BLOOD SPECIMENOrdering Facility: [facility] Address: [address] [place] [address] Performed By: #### 5 7021-8 ####[facility] LABCLIA [id number] [place] [address] Hematocrit (Bld) [Volume fraction] 30.8 % Low 36.0-46.0 [facility] Comment on above: Order Comment: Speci men Type: BLOOD SPECIMENOrdering Facility: [facility] Address: [address] [place] [address] Performed By: #### 5 7021-8 ####[facility] LABCLIA [id number] [place] [address] Hemoglobin (Bld) [Mass/Vol] 10.5 g/dL Low 11.5-15.5 [facility] Comment on above: Order Comment: Speci men Type: BLOOD SPECIMENOrdering Facility: [facility] Address: [address] [place] [address] Performed By: #### 5 7021-8 ####[facility] LABCLIA [id number] [place] [address] Immature granulocytes (Bld) [#/Vol] 10*3/uL Normal <0.10 [facility] Comment on above: Order Comment: Speci men Type: BLOOD SPECIMENOrdering Facility: [facility] Address: [address] [place] [address] Performed By: #### 5 7021-8 ####[facility] LABCLIA [id number] [place] [address] Immature granulocytes/100 WBC (Bld) 0.0 % Normal [facility] Comment on above: Order Comment: Speci men Type: BLOOD SPECIMENOrdering Facility: [facility] Address: [address] [place] [address] Performed By: #### 5 7021-8 ####[facility] LABCLIA [id number] [place] [address] Lymphocytes (Bld) [#/Vol] 0.89 10*3/uL Low 1.00-4.00 [facility] Comment on above: Order Comment: Speci men Type: BLOOD SPECIMENOrdering Facility: [facility] Address: [address] [place] [address] Performed By: #### 5 7021-8 ####[facility] LABCLIA [id number] [place] [address] Lymphocytes/100 WBC (Bld) 30.7 % Normal [facility] Comment on above: Order Comment: Speci men Type: BLOOD SPECIMENOrdering Facility: [facility] Address: [address] [place] [address] Performed By: #### 5 7021-8 ####[facility] LABCLIA [id number] [place] [address] MCH (RBC) [Entitic mass] 34.9 pg High 26.0-34.0 [facility] Comment on above: Order Comment: Speci men Type: BLOOD SPECIMENOrdering Facility: [facility] Address: [address] [place] [address] Performed By: #### 5 7021-8 ####[facility] LABCLIA [id number] [place] [address] MCHC (RBC) [Mass/Vol] 34.1 g/dL Normal 30.5-36.0 [facility] Comment on above: Order Comment: Speci men Type: BLOOD SPECIMENOrdering Facility: [facility] Address: [address] [place] [address] Performed By: #### 5 7021-8 ####[facility] LABCLIA [id number] [place] [address] MCV (RBC) [Entitic vol] 102.3 fL High 80.0-100.0 [facility] Comment on above: Order Comment: Speci men Type: BLOOD SPECIMENOrdering Facility: [facility] Address: [address] [place] [address] Performed By: #### 5 7021-8 ####[facility] LABCLIA [id number] [place] [address] Monocytes (Bld) [#/Vol] 0.26 10*3/uL Normal <0.87 [facility] Comment on above: Order Comment: Speci men Type: BLOOD SPECIMENOrdering Facility: [facility] Address: [address] [place] [address] Performed By: #### 5 7021-8 ####[facility] LABCLIA [id number] [place] [address] Monocytes/100 WBC (Bld) 9.0 % Normal [facility] Comment on above: Order Comment: Speci men Type: BLOOD SPECIMENOrdering Facility: [facility] Address: [address] [place] [address] Performed By: #### 5 7021-8 ####[facility] LABCLIA [id number] [place] [address] Neutrophils (Bld) [#/Vol] 1.69 10*3/uL Normal 1.45-7.50 [facility] Comment on above: Order Comment: Speci men Type: BLOOD SPECIMENOrdering Facility: [facility] Address: [address] [place] [address] Performed By: #### 5 7021-8 ####[facility] LABCLIA [id number] [place] [address] Neutrophils/100 WBC (Bld) 58.2 % Normal [facility] Comment on above: Order Comment: Speci men Type: BLOOD SPECIMENOrdering Facility: [facility] Address: [address] [place] [address] Performed By: #### 5 7021-8 ####[facility] LABCLIA [id number] [place] [address] Nucleated RBC (Bld) [#/Vol] 10*3/uL Normal <0.01 [facility] Comment on above: Order Comment: Speci men Type: BLOOD SPECIMENOrdering Facility: [facility] Address: [address] [place] [address] Performed By: #### 5 7021-8 ####[facility] LABCLIA [id number] [place] [address] Nucleated RBC/100 WBC (Bld) [Ratio] 0.0 /100 WBC Normal [facility] Comment on above: Order Comment: Speci men Type: BLOOD SPECIMENOrdering Facility: [facility] Address: [address] [place] [address] Performed By: #### 5 7021-8 ####[facility] LABCLIA [id number] [place] [address] Platelet mean volume (Bld) [Entitic vol] 9.6 fL Normal 9.0-12.7 [facility] Comment on above: Order Comment: Speci men Type: BLOOD SPECIMENOrdering Facility: [facility] Address: [address] [place] [address] Performed By: #### 5 7021-8 ####[facility] LABCLIA [id number] [place] [address] Platelets (Bld) [#/Vol] 123 10*3/uL Low 150-400 [facility] Comment on above: Order Comment: Speci men Type: BLOOD SPECIMENOrdering Facility: [facility] Address: [address] [place] [address] Performed By: #### 5 7021-8 ####[facility] LABCLIA [id number] [place] [address] RBC (Bld) [#/Vol] 3.01 10*6/uL Low 3.90-5.20 [facility] Comment on above: Order Comment: Speci men Type: BLOOD SPECIMENOrdering Facility: [facility] Address: [address] [place] [address] Performed By: #### 5 7021-8 ####[facility] LABCLIA [id number] [place] [address] WBC (Bld) [#/Vol] 2.90 10*3/uL Low 3.70-11.00 [facility] Comment on above: Order Comment: Speci men Type: BLOOD SPECIMENOrdering Facility: [facility] Address: [address] [place] [address] Performed By: #### 5 7021-8 ####[facility] LABCLIA [id number] [place] [address] Comprehensive metabolic 2000 panelon 02-24-2023 Albumin [Mass/Vol] 4.0 g/dL Normal 3.9-4.9 [facility] Comment on above: Order Comment: Speci men Type: BLOOD SPECIMENOrdering Facility: [facility] Address: [address] [place] [address] Performed By: #### 2 4323-8 ####[facility] LABCLIA [id number] [place] [address] ALP [Catalytic activity/Vol] 83 U/L Normal 34-123 [facility] Comment on above: Order Comment: Speci men Type: BLOOD SPECIMENOrdering Facility: [facility] Address: [address] [place] [address] Performed By: #### 2 4323-8 ####[facility] LABCLIA [id number] [place] [address] ALT [Catalytic activity/Vol] 9 U/L Normal 7-38 [facility] Comment on above: Order Comment: Speci men Type: BLOOD SPECIMENOrdering Facility: [facility] Address: [address] [place] [address] Performed By: #### 2 4323-8 ####[facility] LABCLIA [id number] [place] [address] Anion gap [Moles/Vol] 10 mmol/L Normal 9-18 [facility] Comment on above: Order Comment: Speci men Type: BLOOD SPECIMENOrdering Facility: [facility] Address: [address] [place] [address] Performed By: #### 2 4323-8 ####[facility] LABCLIA [id number] [place] [address] AST [Catalytic activity/Vol] 13 U/L Normal 13-35 [facility] Comment on above: Order Comment: Speci men Type: BLOOD SPECIMENOrdering Facility: [facility] Address: [address] [place] [address] Performed By: #### 2 4323-8 ####[facility] LABCLIA [id number] [place] [address] Bilirubin [Mass/Vol] 0.3 mg/dL Normal 0.2-1.3 [facility] Comment on above: Order Comment: Speci men Type: BLOOD SPECIMENOrdering Facility: [facility] Address: [address] [place] [address] Performed By: #### 2 4323-8 ####[facility] LABCLIA [id number] [place] [address] Calcium [Mass/Vol] 9.8 mg/dL Normal 8.5-10.2 [facility] Comment on above: Order Comment: Speci men Type: BLOOD SPECIMENOrdering Facility: [facility] Address: [address] [place] [address] Performed By: #### 2 4323-8 ####[facility] LABCLIA [id number] [place] [address] Chloride [Moles/Vol] 102 mmol/L Normal 97-105 [facility] Comment on above: Order Comment: Speci men Type: BLOOD SPECIMENOrdering Facility: [facility] Address: [address] [place] [address] Performed By: #### 2 4323-8 ####[facility] LABCLIA [id number] [place] [address] CO2 [Moles/Vol] 25 mmol/L Normal 22-30 [facility] Comment on above: Order Comment: Speci men Type: BLOOD SPECIMENOrdering Facility: [facility] Address: [address] [place] [address] Performed By: #### 2 4323-8 ####[facility] LABCLIA [id number] [place] [address] Creatinine [Mass/Vol] 1.30 mg/dL High 0.58-0.96 [facility] Comment on above: Order Comment: Speci men Type: BLOOD SPECIMENOrdering Facility: [facility] Address: [address] [place] [address] Performed By: #### 2 4323-8 ####[facility] LABCLIA [id number] [place] [address] Creatinine and Glomerular filtration rate.predicted panel (S/P/Bld) 45 mL/min/1.73m??? Low >=60 [facility] Comment on above: Order Comment: Speci men Type: BLOOD SPECIMENOrdering Facility: [facility] Address: [address] [place] [address] Result Comment: Polina mated Glomerular Filtration Rate (eGFR) is calculated using the 2020 CKD-EPI creatinine equation. This equation utilizes serum creatinine, sex, and age as parameters. The creatinine assay has traceable calibration to isotope dilution-mass spectrometry. Refer to KDIGO guidelines for clinical interpretation. In patients with unstable renal function, e.g. those with acute kidney injury, the eGFR may not accurately reflect actual GFR. Performed By: #### 2 4323-8 ####[facility] LABCLIA [id number] [place] [address] Glucose [Mass/Vol] 130 mg/dL High 74-99 [facility] Comment on above: Order Comment: Speci men Type: BLOOD SPECIMENOrdering Facility: [facility] Address: [address] [place] [address] Result Comment: The [place] Diabetes Association (ADA) provides guidance for cutoff values for fasting glucose and random glucose. The ADA defines fasting as no caloric intake for at least 8 hours. Fasting plasma glucose results between 100 to 125 mg/dL indicate increased risk for diabetes (prediabetes).Fasting plasma glucose results greater than or equal to 126 mg/dL meet the criteria for diagnosis of diabetes. In the absence of unequivocal hyperglycemia, results should be confirmed by repeat testing. In a patient with classic symptoms of hyperglycemia or hyperglycemic crisis, random plasma glucose results greater than or equal to 200 mg/dL meet the criteria for diagnosis of diabetes.Reference: Standards of Medical Care in Diabetes 2016, [place] Diabetes Association. Diabetes Care. 2016.39(Suppl 1). Performed By: #### 2 4323-8 ####[facility] LABCLIA [id number] [place] [address] Potassium [Moles/Vol] 3.8 mmol/L Normal 3.7-5.1 [facility] Comment on above: Order Comment: Speci men Type: BLOOD SPECIMENOrdering Facility: [facility] Address: [address] [place] [address] Performed By: #### 2 4323-8 ####[facility] LABCLIA [id number] [place] [address] Protein [Mass/Vol] 6.7 g/dL Normal 6.3-8.0 [facility] Comment on above: Order Comment: Speci men Type: BLOOD SPECIMENOrdering Facility: [facility] Address: [address] [place] [address] Performed By: #### 2 4323-8 ####[facility] LABCLIA [id number] [place] [address] Sodium [Moles/Vol] 137 mmol/L Normal 136-144 [facility] Comment on above: Order Comment: Speci men Type: BLOOD SPECIMENOrdering Facility: [facility] Address: [address] [place] [address] Performed By: #### 2 4323-8 ####[facility] LABCLIA [id number] [place] [address] Urea nitrogen [Mass/Vol] 17 mg/dL Normal 7-21 [facility] Comment on above: Order Comment: Speci men Type: BLOOD SPECIMENOrdering Facility: [facility] Address: [address] [place] [address] Performed By: #### 2 4323-8 ####[facility] LABCLIA [id number] [place] [address] CNSWon 02-22-2023 CNSW Normal [facility] CBC W Auto Differential pane l (Bld)on 02-17-2023 Basophils (Bld) [#/Vol] 10*3/uL Normal <0.11 [facility] Comment on above: Order Comment: Speci men Type: BLOOD SPECIMENOrdering Facility: [facility] Address: [address] [place] [address] Performed By: #### 5 7021-8 ####[facility] LABCLIA [id number] [place] [address] Basophils/100 WBC (Bld) 0.7 % Normal [facility] Comment on above: Order Comment: Speci men Type: BLOOD SPECIMENOrdering Facility: [facility] Address: [address] [place] [address] Performed By: #### 5 7021-8 ####[facility] LABCLIA [id number] [place] [address] Differential cell count method Nom (Bld) Auto Normal [facility] Comment on above: Order Comment: Speci men Type: BLOOD SPECIMENOrdering Facility: [facility] Address: [address] [place] [address] Performed By: #### 5 7021-8 ####[facility] LABCLIA [id number] [place] [address] Eosinophils (Bld) [#/Vol] 0.09 10*3/uL Normal <0.46 [facility] Comment on above: Order Comment: Speci men Type: BLOOD SPECIMENOrdering Facility: [facility] Address: [address] [place] [address] Performed By: #### 5 7021-8 ####[facility] LABCLIA [id number] [place] [address] Eosinophils/100 WBC (Bld) 3.0 % Normal [facility] Comment on above: Order Comment: Speci men Type: BLOOD SPECIMENOrdering Facility: [facility] Address: [address] [place] [address] Performed By: #### 5 7021-8 ####[facility] LABCLIA [id number] [place] [address] Erythrocyte distribution width (RBC) [Ratio] 16.2 % High 11.5-15.0 [facility] Comment on above: Order Comment: Speci men Type: BLOOD SPECIMENOrdering Facility: [facility] Address: [address] [place] [address] Performed By: #### 5 7021-8 ####[facility] LABCLIA [id number] [place] [address] Hematocrit (Bld) [Volume fraction] 32.0 % Low 36.0-46.0 [facility] Comment on above: Order Comment: Speci men Type: BLOOD SPECIMENOrdering Facility: [facility] Address: [address] [place] [address] Performed By: #### 5 7021-8 ####[facility] LABCLIA [id number] [place] [address] Hemoglobin (Bld) [Mass/Vol] 11.0 g/dL Low 11.5-15.5 [facility] Comment on above: Order Comment: Speci men Type: BLOOD SPECIMENOrdering Facility: [facility] Address: [address] [place] [address] Performed By: #### 5 7021-8 ####[facility] LABCLIA [id number] [place] [address] Immature granulocytes (Bld) [#/Vol] 10*3/uL Normal <0.10 [facility] Comment on above: Order Comment: Speci men Type: BLOOD SPECIMENOrdering Facility: [facility] Address: [address] [place] [address] Performed By: #### 5 7021-8 ####[facility] LABCLIA [id number] [place] [address] Immature granulocytes/100 WBC (Bld) 0.3 % Normal [facility] Comment on above: Order Comment: Speci men Type: BLOOD SPECIMENOrdering Facility: [facility] Address: [address] [place] [address] Performed By: #### 5 7021-8 ####[facility] LABCLIA [id number] [place] [address] Lymphocytes (Bld) [#/Vol] 0.85 10*3/uL Low 1.00-4.00 [facility] Comment on above: Order Comment: Speci men Type: BLOOD SPECIMENOrdering Facility: [facility] Address: [address] [place] [address] Performed By: #### 5 7021-8 ####[facility] LABCLIA [id number] [place] [address] Lymphocytes/100 WBC (Bld) 27.9 % Normal [facility] Comment on above: Order Comment: Speci men Type: BLOOD SPECIMENOrdering Facility: [facility] Address: [address] [place] [address] Performed By: #### 5 7021-8 ####[facility] LABCLIA [id number] [place] [address] MCH (RBC) [Entitic mass] 34.3 pg High 26.0-34.0 [facility] Comment on above: Order Comment: Speci men Type: BLOOD SPECIMENOrdering Facility: [facility] Address: [address] [place] [address] Performed By: #### 5 7021-8 ####[facility] LABCLIA [id number] [place] [address] MCHC (RBC) [Mass/Vol] 34.4 g/dL Normal 30.5-36.0 [facility] Comment on above: Order Comment: Speci men Type: BLOOD SPECIMENOrdering Facility: [facility] Address: [address] [place] [address] Performed By: #### 5 7021-8 ####[facility] LABIA [id number] [place] [address] MCV (RBC) [Entitic vol] 99.7 fL Normal 80.0-100.0 [facility] Comment on above: Order Comment: Speci men Type: BLOOD SPECIMENOrdering Facility: [facility] Address: [address] [place] [address] Performed By: #### 5 7021-8 ####[facility] LABIA [id number] [place] [address] Monocytes (Bld) [#/Vol] 0.17 10*3/uL Normal <0.87 [facility] Comment on above: Order Comment: Speci men Type: BLOOD SPECIMENOrdering Facility: [facility] Address: [address] [place] [address] Performed By: #### 5 7021-8 ####[facility] LABIA [id number] [place] [address] Monocytes/100 WBC (Bld) 5.6 % Normal [facility] Comment on above: Order Comment: Speci men Type: BLOOD SPECIMENOrdering Facility: [facility] Address: [address] [place] [address] Performed By: #### 5 7021-8 ####[facility] LABIA [id number] [place] [address] Neutrophils (Bld) [#/Vol] 1.91 10*3/uL Normal 1.45-7.50 [facility] Comment on above: Order Comment: Speci men Type: BLOOD SPECIMENOrdering Facility: [facility] Address: [address] [place] [address] Performed By: #### 5 7021-8 ####[facility] LABIA [id number] [place] [address] Neutrophils/100 WBC (Bld) 62.5 % Normal [facility] Comment on above: Order Comment: Speci men Type: BLOOD SPECIMENOrdering Facility: [facility] Address: [address] [place] [address] Performed By: #### 5 7021-8 ####[facility] LABCLIA [id number] [place] [address] Nucleated RBC (Bld) [#/Vol] 10*3/uL Normal <0.01 [facility] Comment on above: Order Comment: Speci men Type: BLOOD SPECIMENOrdering Facility: [facility] Address: [address] [place] [address] Performed By: #### 5 7021-8 ####[facility] LABCLIA [id number] [place] [address] Nucleated RBC/100 WBC (Bld) [Ratio] 0.0 /100 WBC Normal [facility] Comment on above: Order Comment: Speci men Type: BLOOD SPECIMENOrdering Facility: [facility] Address: [address] [place] [address] Performed By: #### 5 7021-8 ####[facility] LABCLIA [id number] [place] [address] Platelet mean volume (Bld) [Entitic vol] 9.5 fL Normal 9.0-12.7 [facility] Comment on above: Order Comment: Speci men Type: BLOOD SPECIMENOrdering Facility: [facility] Address: [address] [place] [address] Performed By: #### 5 7021-8 ####[facility] LABCLIA [id number] [place] [address] Platelets (Bld) [#/Vol] 117 10*3/uL Low 150-400 [facility] Comment on above: Order Comment: Speci men Type: BLOOD SPECIMENOrdering Facility: [facility] Address: [address] [place] [address] Performed By: #### 5 7021-8 ####[facility] LABCLIA [id number] [place] [address] RBC (Bld) [#/Vol] 3.21 10*6/uL Low 3.90-5.20 [facility] Comment on above: Order Comment: Speci men Type: BLOOD SPECIMENOrdering Facility: [facility] Address: [address] [place] [address] Performed By: #### 5 7021-8 ####[facility] LABCLIA [id number] [place] [address] WBC (Bld) [#/Vol] 3.05 10*3/uL Low 3.70-11.00 [facility] Comment on above: Order Comment: Speci men Type: BLOOD SPECIMENOrdering Facility: [facility] Address: [address] [place] [address] Performed By: #### 5 7021-8 ####[facility] LABCLIA [id number] [place] [address] CNOVSPon 02-17-2023 CNOVSP Normal [facility] CNPNon 02-17-2023 CNPN Normal [facility] CT CHEST W IVCONon 3 CT CHEST W IVCON Invalid Interpretation Code [facility] Cancer Ag15-3 SerPl-aCncon 1 04-20-2022 Cancer Ag 15-3 Qn 19.6 U/mL Normal <26.0 [facility] Comment on above: Order Comment: Speci men Type: BLOOD SPECIMENOrdering Facility: [facility] Address: [address] [place] [address] Result Comment: The CA 15-3 test methodology used is the Electrochemiluminescence Immunoassay by [employer]. Results obtained with different methods or kits cannot be used interchangeably. Performed By: #### 5 0190-8, 6875-9, 2276-4 ####[facility] LABCLIA [id number] [place] [address] [place] Cancer Ag27-29 SerPl-aCncon 02-17-2023 Cancer Ag 27-29 Qn 23.0 [arb'U]/mL Normal <38.6 [facility] Comment on above: Order Comment: Speci men Type: BLOOD SPECIMENOrdering Facility: [facility] Address: [address] [place] [address] Result Comment: The CA27.29 test was performed using the Siem[employer] Portable [employer] XP chemiluminometric immunoassay method. Results obtained with different assay methods or kits cannot be used interchangeably. Performed By: #### 1 7842-6 ####[facility] LABCLIA [id number] [facility] [id number] Comprehensive metabolic 2000 panelon 02-17-2023 Albumin [Mass/Vol] 4.2 g/dL Normal 3.9-4.9 [facility] Comment on above: Order Comment: Speci men Type: BLOOD SPECIMENOrdering Facility: [facility] Address: [address] [place] [address] Performed By: #### 2 4323-8 ####[facility] LABCLIA [id number] [place] [address] ALP [Catalytic activity/Vol] 76 U/L Normal 34-123 [facility] Comment on above: Order Comment: Speci men Type: BLOOD SPECIMENOrdering Facility: [facility] Address: [address] [place] [address] Performed By: #### 2 4323-8 ####[facility] LABCLIA [id number] [place] [address] ALT [Catalytic activity/Vol] 9 U/L Normal 7-38 [facility] Comment on above: Order Comment: Speci men Type: BLOOD SPECIMENOrdering Facility: [facility] Address: [address] [place] [address] Performed By: #### 2 4323-8 ####[facility] LABCLIA [id number] [place] [address] Anion gap [Moles/Vol] 10 mmol/L Normal 9-18 [facility] Comment on above: Order Comment: Speci men Type: BLOOD SPECIMENOrdering Facility: [facility] Address: [address] [place] [address] Performed By: #### 2 4323-8 ####[facility] LABCLIA [id number] [place] [address] AST [Catalytic activity/Vol] 14 U/L Normal 13-35 [facility] Comment on above: Order Comment: Speci men Type: BLOOD SPECIMENOrdering Facility: [facility] Address: [address] [place] [address] Performed By: #### 2 4323-8 ####[facility] LABCLIA [id number] [place] [address] Bilirubin [Mass/Vol] 0.6 mg/dL Normal 0.2-1.3 [facility] Comment on above: Order Comment: Speci men Type: BLOOD SPECIMENOrdering Facility: [facility] Address: [address] [place] [address] Performed By: #### 2 4323-8 ####[facility] LABCLIA [id number] [place] [address] Calcium [Mass/Vol] 10.6 mg/dL High 8.5-10.2 [facility] Comment on above: Order Comment: Speci men Type: BLOOD SPECIMENOrdering Facility: [facility] Address: [address] [place] [address] Performed By: #### 2 4323-8 ####[facility] LABCLIA [id number] [place] [address] Chloride [Moles/Vol] 107 mmol/L High 97-105 [facility] Comment on above: Order Comment: Speci men Type: BLOOD SPECIMENOrdering Facility: [facility] Address: [address] [place] [address] Performed By: #### 2 4323-8 ####[facility] LABCLIA [id number] [place] [address] CO2 [Moles/Vol] 25 mmol/L Normal 22-30 [facility] Comment on above: Order Comment: Speci men Type: BLOOD SPECIMENOrdering Facility: [facility] Address: [address] [place] [address] Performed By: #### 2 4323-8 ####[facility] LABCLIA [id number] [place] [address] Creatinine [Mass/Vol] 1.32 mg/dL High 0.58-0.96 [facility] Comment on above: Order Comment: Speci men Type: BLOOD SPECIMENOrdering Facility: [facility] Address: [address] [place] [address] Performed By: #### 2 4323-8 ####[facility] LABCLIA [id number] [place] [address] Creatinine and Glomerular filtration rate.predicted panel (S/P/Bld) 44 mL/min/1.73m??? Low >=60 [facility] Comment on above: Order Comment: Speci men Type: BLOOD SPECIMENOrdering Facility: [facility] Address: [address] [place] [address] Result Comment: Polina mated Glomerular Filtration Rate (eGFR) is calculated using the 2020 CKD-EPI creatinine equation. This equation utilizes serum creatinine, sex, and age as parameters. The creatinine assay has traceable calibration to isotope dilution-mass spectrometry. Refer to KDIGO guidelines for clinical interpretation. In patients with unstable renal function, e.g. those with acute kidney injury, the eGFR may not accurately reflect actual GFR. Performed By: #### 2 4323-8 ####[facility] LABCLIA [id number] [place] [address] Glucose [Mass/Vol] 99 mg/dL Normal 74-99 [facility] Comment on above: Order Comment: Speci men Type: BLOOD SPECIMENOrdering Facility: [facility] Address: [address] [place] [address] Result Comment: The [place] Diabetes Association (ADA) provides guidance for cutoff values for fasting glucose and random glucose. The ADA defines fasting as no caloric intake for at least 8 hours. Fasting plasma glucose results between 100 to 125 mg/dL indicate increased risk for diabetes (prediabetes).Fasting plasma glucose results greater than or equal to 126 mg/dL meet the criteria for diagnosis of diabetes. In the absence of unequivocal hyperglycemia, results should be confirmed by repeat testing. In a patient with classic symptoms of hyperglycemia or hyperglycemic crisis, random plasma glucose results greater than or equal to 200 mg/dL meet the criteria for diagnosis of diabetes.Reference: Standards of Medical Care in Diabetes 2016, [place] [employer]. Diabetes Care. 2016.39(Suppl 1). Performed By: #### 2 4323-8 ####[facility] LABCLIA [id number] [place] [address] Potassium [Moles/Vol] 4.0 mmol/L Normal 3.7-5.1 [facility] Comment on above: Order Comment: Speci men Type: BLOOD SPECIMENOrdering Facility: [facility] Address: [address] [place] [address] Performed By: #### 2 4323-8 ####[facility] LABCLIA [id number] [place] [address] Protein [Mass/Vol] 6.9 g/dL Normal 6.3-8.0 [facility] Comment on above: Order Comment: Speci men Type: BLOOD SPECIMENOrdering Facility: [facility] Address: [address] [place] [address] Performed By: #### 2 4323-8 ####[facility] LABCLIA [id number] [place] [address] Sodium [Moles/Vol] 142 mmol/L Normal 136-144 [facility] Comment on above: Order Comment: Speci men Type: BLOOD SPECIMENOrdering Facility: [facility] Address: [address] [place] [address] Performed By: #### 2 4323-8 ####[facility] LABCLIA [id number] [place] [address] Urea nitrogen [Mass/Vol] 21 mg/dL Normal 7-21 [facility] Comment on above: Order Comment: Speci men Type: BLOOD SPECIMENOrdering Facility: [facility] Address: [address] [place] [address] Performed By: #### 2 4323-8 ####[facility] LABCLIA [id number] [place] [address] Ferritin [facility]Pl[facility] 2022 Ferritin [Mass/Vol] 216.0 ng/mL High 14.7-205.1 [facility] Comment on above: Order Comment: Speci men Type: BLOOD SPECIMENOrdering Facility: [facility] Address: [address] [place] [address] Performed By: #### 5 0190-8, 6875-9, 2276-4 ####[facility] LABCLIA [id number] [place] [address] [place] Folate SerPl-mCncon 02-18-20 Folate [Mass/Vol] 16.7 ng/mL Normal >4.7 [facility] Comment on above: Order Comment: Speci men Type: BLOOD SPECIMENOrdering Facility: [facility] Address: [address] [place] [address] Performed By: #### 2 284-8, 2132-9 ####[facility] LABCLIA [id number] [place] [address] [place] Iron and Iron binding capaci ty panelon 02-17-2023 Iron [Mass/Vol] 117 ug/dL Normal 41-186 [facility] Comment on above: Order Comment: Speci men Type: BLOOD SPECIMENOrdering Facility: [facility] Address: [address] [place] [address] Performed By: #### 5 0190-8, 6875-9, 2276-4 ####[facility] LABCLIA [id number] [place] [address] [place] Iron binding capacity [Mass/Vol] 296 ug/dL Normal 232-386 [facility] Comment on above: Order Comment: Speci men Type: BLOOD SPECIMENOrdering Facility: [facility] Address: [place] [address] Performed By: #### 5 0190-8, 6875-9, 2276-4 ####[facility] LABCLIA [id number] [place] [address] [place] Iron/TIBC [Molar ratio] 39.5 % Normal 15.0-57.0 [facility] Comment on above: Order Comment: Speci men Type: BLOOD SPECIMENOrdering Facility: [facility] Address: [address] [place] [address] Performed By: #### 5 0190-8, 6875-9, 2276-4 ####[facility] LABCLIA [id number] [place] [address] [place] Vit B12 [facility] 02-17- 023 Cobalamin (Vitamin B12) [Mass/Vol] 329 pg/mL Normal 232-1245 [facility] Comment on above: Order Comment: Speci men Type: BLOOD SPECIMENOrdering Facility: [facility] Address: [place] [address] Performed By: #### 2 284-8, 2132-9 ####[facility] LABIA [id number] [place] [address] [place] Immunization Recordson 02-14 Immunization Records [id number]#[id number] TIFF Normal [facility] CNOVon 02-11-2023 CNOV Normal [facility] Family Medicine Office/Clini c Noteon 02-07-2023 Family Medicine Office/Clinic Note HPI Staff [place] is a 67 year old female presenting for 3 month follow up dm & htn Do you have any of the following symptoms? Foot Exam: due doesn't think she's ever had one Eye Exam: UTD Last A1C: Hgb A1C %: 6.1 % High (01/31/23 16:12:00) Statin: atorvastatin 40mg Patient is here for follow up on hypertension. How often are you checking your blood pressure? very rarely What are your average readings? N/A, Not checking at home Yearly BMP: 07/05/22 flu: will do at pharmacy as we are out of high dose and she also wants the covid and rsv and pneumovax questions/concerns: would like a rx for her inhaler and nose spray, none of which she's had for awhile History of Present Illness Kiah Cortes is a 67-year-old female who presents today for a follow-up evaluation of diabetes. The patient's HbA1c was 6.1% at her last visit. She denies any concerns. She states that she has been checking her blood glucose at home and it has been around 100 to 110 mg/dL. The patient's blood pressure is at goal today, 02/07/2023. Her breast cancer condition is showing positive progress. The patient requests a form for her Plaquenil medication. She reports experiencing dyspnea after walking a short distance. She also has a bunion in her foot, which, according to her, is not causing any pain. However, she does express difficulty in walking short distances. Review of Systems PHQ Score Initial Depression Screen Score: 0 SCORE General: alert, no acute distress Cardiovascular: regular rate and rhythm, normal peripheral perfusion Respiratory: Lungs CTA, respirations non labored Extremities: no deformity, no trauma Neurological: oriented x 4, LOC appropriate for age, CN II-XII intact, motor strength equal & normal bilaterally, speech normal Physical Exam Vitals & Measurements T: 36.5 ?C(Oral) HR: 70(Peripheral) RR: 16 BP: 136/72 SpO2: 95% HT: 60 in HT: 152 cm WT: 95.9 kg WT: 210.98 lb BMI: 41.51 Diabetic Foot Exam Decreased Monofilament Sensation Foot: Left - Normal, Right - Normal Bunions/Foot Deformity: Left - Abnormal, Right - Normal Abnormal Pulse Foot: Left - Normal, Right - Normal Skin Lesions Foot: Left - Normal, Right - Normal Foot Exam Result: Abnormal foot exam Assessment/Plan 1. HTN (hypertension), benign (I10: Essential (primary) hypertension) Patient's blood pressure is at goal. Continue medications before. No side effects of medication. We will refill as needed. 2. Type 2 diabetes mellitus with hyperlipidemia (E11.69: Type 2 diabetes mellitus with other specified complication) Patient is at goal at this time. Continue medications before. Continue working on diet and exercise to help. 3. Mixed hyperlipidemia (E78.2: Mixed hyperlipidemia) Patient is on atorvastatin and not having any issues with it at this time. We will continue on atorvastatin as before. 4. 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 Discussed this with the patient. Continue with oncology. 5. Osteoarthritis (M19.90: Unspecified osteoarthritis, unspecified site) We will do a handicap placard as patient has trouble walking short distances because of it. Encouraged ambulation with a cane or walker as needed. 6. Malignant neoplasm of female breast, unspecified estrogen receptor status, unspecified laterality, unspecified site of breast (C50.919: Malignant neoplasm of unspecified site of unspecified female breast) Continue seeing oncology for this. 7. BMI 40.0-44.9, adult (Z68.41: Body mass index [BMI] 40.0-44.9, adult) BMI education given. 8. Class 3 obesity (E66.01: Morbid (severe) obesity due to excess calories) Diet and exercise advised. 9. Reactive airway disease (J45.909: Unspecified asthma, uncomplicated) Patient states that she uses inhaler. I do not see that in our list. Patient will give us a call and let us know which one she uses. 10. Seasonal allergies (J30.2: Other seasonal allergic rhinitis) We will call in Flonase for the patient today as she uses that to help with her breathing at night. We will see the patient back in 6 months. Portions of this record may have been created with voice recognition artificial intelligence software, specifically [employer], [employer] and or [employer]. Substitutions may have occurred due to the inherent limitations of voice recognition and artificial intelligence software. ATTESTATION: Documentation services were performed after patient or guardian consented to allow [employer] to record this visit. [facility] metabolic specialist and provider reviewed before signing. MAGNUS: Dhevie Rigor Follow-up No qualifying data available Problem List/Past Medical History Ongoing BMI 40.0-44.9, adult Class 3 obesity HTN (hypertension), benign Immunodeficiency due to drugs Knee pain, right Malignant neoplasm of female breast Mixed hyperlipidemia Non-smoker Osteoarthritis Osteopenia Reactive airwa (more content not included)... Normal [facility] Comment on above: Result Comment: Elec tronically Signed By: Nate Bobby MD\.br\Date and Time Signed: 02/07/23 14:48 EST\.br\Electronically Co-Signed By: Maday House\.br\Date and Time Co-Signed: 02/07/23 11:09 EST Pre-Visit Planningon 023 Pre-Visit Planning - From: Andria Nelson To: Nate Bobby MD; Sent: 02/02/2023 15:21:25 EST Subject: Pre-Visit Planning Due Date/Time: 02/02/2023 15:21:00 EST Caller Name: KIAH CORTES; Caller Number: H , M Id Dr. Bobby. During a pre-visit planning chart review, I noted the following documentation in the medical record: Current Problem List: Breast cancer. Current Medication List: abemaciclib. Based on the documentation above do you feel the patient has any of the following? I can update the Chronic Problem List with your response if you would like. -Immunodeficiency due to drugs -Other (please specify): In responding to this request, please exercise your independent professional judgment. The fact that a question is asked does not imply that any particular answer is desired or expected. If you have any questions, please feel free to contact me at extension [phone]. Thank you! Andria Nelson LPN From: Nate Bobby MD To: Andria Nelson; Sent: 02/03/2023 10:34:19 EST Subject: RE: Pre-Visit Planning Caller Name: KIAH CORTES; Caller Number: H , M -Immunodeficiency due to drugs Normal [address] [place] [address] .Interpretation:on HCV Ab IA Ql Comment Invalid Interpretation Code [facility] Comment on above: Result Comment: Not infected with HCV unless early or acute infection is suspected (which may be delayed in an immunocompromised individual), or other evidence exists to indicate HCV infection. Performed at: [facility] [id number] [place], [place] [id number] PhD Sammi Langston Performed By: #### 2 [id number], [id number], [id number] ####[facility] [address] [place] [address] HCV Antibody RFX to Quant PC Dick 02-02-2023 HCV IgG IA Ql Non-Reactive Invalid Interpretation Code Non Reactive [facility] Comment on above: Order Comment: Lab d rop-offfransico office Result Comment: Perf ormed at: [address] [id number] PhD Sammi Langston Performed By: #### 2 [id number], [id number], [id number] ####[facility] [address] [place] [address] CHEMISTRYOrdered By: Leslie Zheng on 01-31-2023 HbA1c (Bld) [Mass fraction] 6.1 % High <=5.9% [facility] [facility] Consultation Noteon 02-01-20 Consultation Note [id number]#1.00T IFF Normal [facility] [id number] 01-31-2023 HbA1c (Bld) [Mass fraction] 6.1 % High <=5.9 [facility] Comment on above: Performed By: #### 2 [id number], [id number], [id number] ####[facility] [address] [place] [address] Nurse Consultation Noteon Nurse Consultation Note Reason for Visit Pt here for routine lab draw. Medications amLODIPine 10 mg Tab, See Instructions anastrozole 1 mg Tab, 1 mg= 1 tab(s), Oral, Daily atorvastatin 40 mg Tab, See Instructions carvedilol 25 mg Tab, See Instructions CeleBREX 100 mg Cap, 100 mg= 1 cap(s), Oral, BID, 1 refills levothyroxine 50 mcg (0.05 mg) Tab, See Instructions loratadine 10 mg Tab, See Instructions metformin 1000 mg Tab, See Instructions ropinirole 0.25 mg Tab, See Instructions Verzenio 150 mg oral tablet, 150 mg= 1 tab(s), Oral, BID Allergies No Known Allergies Immunizations Vaccine Date Status Comments influenza virus vaccine, inactivated - Not Given Parent Or Guardian Refuses patient says oncologist told her to wait awhile influenza virus vaccine, inactivated 01/15/2022 Recorded SARS-CoV-2 (COVID-19) [id number] 11/24/2021 Recorded 2022-04-28: TPV65 SARS-CoV-2 (COVID-19) mRNA-1273 vaccine 04/16/2021 Recorded 2022-04-28: TPV65 SARS-CoV-2 (COVID-19) mRNA-1273 vaccine 08/05/2020 Recorded 2022-04-28: TPV65 SARS-CoV-2 (COVID-19) mRNA-1273 vaccine 07/08/2020 Recorded 2022-04-28: TPV65 pneumococcal 23-valent vaccine 12/13/2017 Recorded pneumococcal 13-valent vaccine 03/23/2016 Recorded Normal [facility] CBC W Auto Differential pane l (Bld)on 01-27-2023 Basophils (Bld) [#/Vol] 0.03 10*3/uL <0.11 k/uL [facility] Basophils/100 WBC (Bld) 0.7 % [facility] Differential cell count method Nom (Bld) Auto [facility] Eosinophils (Bld) [#/Vol] 0.09 10*3/uL <0.46 k/uL [facility] Eosinophils/100 WBC (Bld) 2.0 % [facility] Erythrocyte distribution width (RBC) [Ratio] 17.6 % High 11.5 - 15.0 % [facility] Hematocrit (Bld) [Volume fraction] 32.8 % Low 36.0 - 46.0 % [facility] Hemoglobin (Bld) [Mass/Vol] 11.0 g/dL Low 11.5 - 15.5 g/dL [facility] Immature granulocytes (Bld) [#/Vol] 0.03 10*3/uL <0.10 k/uL [facility] Immature granulocytes/100 WBC (Bld) 0.7 % [facility] Lymphocytes (Bld) [#/Vol] 1.04 10*3/uL 1.00 - 4.00 k/uL [facility] Lymphocytes/100 WBC (Bld) 23.4 % [facility] MCH (RBC) [Entitic mass] 33.6 pg 26.0 - 34.[address] [facility] MCHC (RBC) [Mass/Vol] 33.5 g/dL 30.5 - 36.0 g/dL [facility] MCV (RBC) [Entitic vol] 100.3 fL High 80.0 - 100.[address] [facility] Monocytes (Bld) [#/Vol] 0.46 10*3/uL <0.87 k/uL [facility] Monocytes/100 WBC (Bld) 10.4 % [facility] Neutrophils (Bld) [#/Vol] 2.79 10*3/uL 1.45 - 7.50 k/uL [facility] Neutrophils/100 WBC (Bld) 62.8 % [facility] Nucleated RBC (Bld) [#/Vol] 0.02 10*3/uL High <0.01 k/uL [facility] Nucleated RBC/100 WBC (Bld) [Ratio] 0.5 /[address] [facility] Platelet mean volume (Bld) [Entitic vol] 9.7 fL 9.0 - 12.[address] [facility] Platelets (Bld) [#/Vol] 251 10*3/uL 150 - 400 k/uL [facility] RBC (Bld) [#/Vol] 3.27 10*6/uL Low 3.90 - 5.20 m/uL [facility] WBC (Bld) [#/Vol] 4.44 10*3/uL 3.70 - 11.00 k/u L [facility] Basophils (Bld) [#/Vol] 0.03 10*3/uL Normal <0.11 [facility] Comment on above: Order Comment: Speci men Type: BLOOD SPECIMENOrdering Facility: [facility] Address: [address] [place] [address] Performed By: #### 5 7021-8 ####[facility] [id number] [place] [address] Basophils/100 WBC (Bld) 0.7 % Normal [facility] Comment on above: Order Comment: Speci men Type: BLOOD SPECIMENOrdering Facility: [facility] Address: [address] [place] [address] Performed By: #### 5 7021-8 ####[facility] [id number] [place] [address] Differential cell count method Nom (Bld) Auto Normal [facility] Comment on above: Order Comment: Speci men Type: BLOOD SPECIMENOrdering Facility: [facility] Address: [address] [place] [address] Performed By: #### 5 7021-8 ####[facility] [id number] [place] [address] Eosinophils (Bld) [#/Vol] 0.09 10*3/uL Normal <0.46 [facility] Comment on above: Order Comment: Speci men Type: BLOOD SPECIMENOrdering Facility: [facility] Address: [address] [place] [address] Performed By: #### 5 7021-8 ####[facility] [id number] [place] [address] Eosinophils/100 WBC (Bld) 2.0 % Normal [facility] Comment on above: Order Comment: Speci men Type: BLOOD SPECIMENOrdering Facility: [facility] Address: [address] [place] [address] Performed By: #### 5 7021-8 ####[facility] [id number] [place] [address] Erythrocyte distribution width (RBC) [Ratio] 17.6 % High 11.5-15.0 [facility] Comment on above: Order Comment: Speci men Type: BLOOD SPECIMENOrdering Facility: [facility] Address: [address] [place] [address] Performed By: #### 5 7021-8 ####[facility] [id number] [place] [address] Hematocrit (Bld) [Volume fraction] 32.8 % Low 36.0-46.0 [facility] Comment on above: Order Comment: Speci men Type: BLOOD SPECIMENOrdering Facility: [facility] Address: [address] [place] [address] Performed By: #### 5 7021-8 ####[facility] [id number] [place] [address] Hemoglobin (Bld) [Mass/Vol] 11.0 g/dL Low 11.5-15.5 [facility] Comment on above: Order Comment: Speci men Type: BLOOD SPECIMENOrdering Facility: [facility] Address: [address] [place] [address] Performed By: #### 5 7021-8 ####[facility] [id number] [place] [address] Immature granulocytes (Bld) [#/Vol] 0.03 10*3/uL Normal <0.10 [facility] Comment on above: Order Comment: Speci men Type: BLOOD SPECIMENOrdering Facility: [facility] Address: [address] [place] [address] Performed By: #### 5 7021-8 ####[facility] [id number] [place] [address] Immature granulocytes/100 WBC (Bld) 0.7 % Normal [facility] Comment on above: Order Comment: Speci men Type: BLOOD SPECIMENOrdering Facility: [facility] Address: [address] [place] [address] Performed By: #### 5 7021-8 ####[facility] [id number] [place] [address] Lymphocytes (Bld) [#/Vol] 1.04 10*3/uL Normal 1.00-4.00 [facility] Comment on above: Order Comment: Speci men Type: BLOOD SPECIMENOrdering Facility: [facility] Address: [address] [place] [address] Performed By: #### 5 7021-8 ####[facility] [id number] [place] [address] Lymphocytes/100 WBC (Bld) 23.4 % Normal [facility] Comment on above: Order Comment: Speci men Type: BLOOD SPECIMENOrdering Facility: [facility] Address: [address] [place] [address] Performed By: #### 5 7021-8 ####[facility] [id number] [place] [address] MCH (RBC) [Entitic mass] 33.6 pg Normal 26.0-34.0 [facility] Comment on above: Order Comment: Speci men Type: BLOOD SPECIMENOrdering Facility: [facility] Address: [address] [place] [address] Performed By: #### 5 7021-8 ####[facility] [id number] [place] [address] MCHC (RBC) [Mass/Vol] 33.5 g/dL Normal 30.5-36.0 [facility] Comment on above: Order Comment: Speci men Type: BLOOD SPECIMENOrdering Facility: [facility] Address: [address] [place] [address] Performed By: #### 5 7021-8 ####[facility] [id number] [place] [address] MCV (RBC) [Entitic vol] 100.3 fL High 80.0-100.0 [facility] Comment on above: Order Comment: Speci men Type: BLOOD SPECIMENOrdering Facility: [facility] Address: [address] [place] [address] Performed By: #### 5 7021-8 ####[facility] [id number] [place] [address] Monocytes (Bld) [#/Vol] 0.46 10*3/uL Normal <0.87 [facility] Comment on above: Order Comment: Speci men Type: BLOOD SPECIMENOrdering Facility: [facility] Address: [address] [place] [address] Performed By: #### 5 7021-8 ####[facility]CL[facility] [id number] [place] [address] Monocytes/100 WBC (Bld) 10.4 % Normal [facility] Comment on above: Order Comment: Speci men Type: BLOOD SPECIMENOrdering Facility: [facility] Address: [address] [place] [address] Performed By: #### 5 7021-8 ####[facility] [id number] [place] [address] Neutrophils (Bld) [#/Vol] 2.79 10*3/uL Normal 1.45-7.50 [facility] Comment on above: Order Comment: Speci men Type: BLOOD SPECIMENOrdering Facility: [facility] Address: [address] [place] [address] Performed By: #### 5 7021-8 ####[facility] [id number] [place] [address] Neutrophils/100 WBC (Bld) 62.8 % Normal [facility] Comment on above: Order Comment: Speci men Type: BLOOD SPECIMENOrdering Facility: [facility] Address: [address] [place] [address] Performed By: #### 5 7021-8 ####[facility] LABIA [id number] [place] [address] Nucleated RBC (Bld) [#/Vol] 0.02 10*3/uL High <0.01 [facility] Comment on above: Order Comment: Speci men Type: BLOOD SPECIMENOrdering Facility: [facility] Address: [address] [place] [address] Performed By: #### 5 7021-8 ####[facility] [id number] [place] [address] Nucleated RBC/100 WBC (Bld) [Ratio] 0.5 /100 WBC Normal [facility] Comment on above: Order Comment: Speci men Type: BLOOD SPECIMENOrdering Facility: [facility] Address: [address] [place] [address] Performed By: #### 5 7021-8 ####[facility] [id number] [place] [address] Platelet mean volume (Bld) [Entitic vol] 9.7 fL Normal 9.0-12.7 [facility] Comment on above: Order Comment: Speci men Type: BLOOD SPECIMENOrdering Facility: [facility] Address: [address] [place] [address] Performed By: #### 5 7021-8 ####[facility] [id number] [place] [address] Platelets (Bld) [#/Vol] 251 10*3/uL Normal 150-400 [facility] Comment on above: Order Comment: Speci men Type: BLOOD SPECIMENOrdering Facility: [facility] Address: [address] [place] [address] Performed By: #### 5 7021-8 ####[facility]CL[facility] [id number] [place] [address] RBC (Bld) [#/Vol] 3.27 10*6/uL Low 3.90-5.20 [facility] Comment on above: Order Comment: Speci men Type: BLOOD SPECIMENOrdering Facility: [facility] Address: [address] [place] [address] Performed By: #### 5 7021-8 ####[facility]CL[facility] [id number] [place] [address] WBC (Bld) [#/Vol] 4.44 10*3/uL Normal 3.70-11.00 [facility] Comment on above: Order Comment: Speci men Type: BLOOD SPECIMENOrdering Facility: [facility] Address: [place] [address] Performed By: #### 5 7021-8 ####[facility] LABCLIA [id number] [place] [address] CNOVSPon 01-27-2023 CNOVSP Normal [facility] metabolic 2000 panelon 01-27-2023 Albumin [Mass/Vol] 4.4 g/dL 3.9 - 4.9 g/dL Cl [facility] ALP [Catalytic activity/Vol] 88 U/L 34 - 123 U/L [facility] ALT [Catalytic activity/Vol] 11 U/L 7 - 38 U/L [facility] Anion gap [Moles/Vol] 12 mmol/L 9 - 18 mmol/L [facility] AST [Catalytic activity/Vol] 15 U/L 13 - 35 U/L [facility] Bilirubin [Mass/Vol] 0.4 mg/dL 0.2 - 1.3 mg/dL [facility] Calcium [Mass/Vol] 9.9 mg/dL 8.5 - 10.2 mg/dL [facility] Chloride [Moles/Vol] 104 mmol/L 97 - 105 mmol/L [facility] CO2 [Moles/Vol] 24 mmol/L 22 - 30 mmol/L [facility] Creatinine [Mass/Vol] 1.35 mg/dL High 0.58 - 0.96 mg/dL [facility] Estimated Glomerular Filtration Rate 43 mL/min/1.73m Low >=60 mL/min/1.73m [facility] Glucose [Mass/Vol] 113 mg/dL High 74 - 99 mg/dL [facility] Potassium [Moles/Vol] 3.7 mmol/L 3.7 - 5.1 mmol/L [facility] Protein [Mass/Vol] 6.8 g/dL 6.3 - 8.0 g/dL [facility] Sodium [Moles/Vol] 140 mmol/L 136 - 144 mmol/L [facility] Urea nitrogen [Mass/Vol] 23 mg/dL High 7 - 21 mg/dL [facility] Albumin [Mass/Vol] 4.4 g/dL Normal 3.9-4.9 [facility] Comment on above: Order Comment: Speci men Type: BLOOD SPECIMENOrdering Facility: [facility] Address: [address] [place] [address] Performed By: #### 2 4323-8 ####[facility] LABCLIA [id number] [place] [address] ALP [Catalytic activity/Vol] 88 U/L Normal 34-123 [facility] Comment on above: Order Comment: Speci men Type: BLOOD SPECIMENOrdering Facility: [facility] Address: [address] [place] [address] Performed By: #### 2 4323-8 ####[facility] LABCLIA [id number] [place] [address] ALT [Catalytic activity/Vol] 11 U/L Normal 7-38 [facility] Comment on above: Order Comment: Speci men Type: BLOOD SPECIMENOrdering Facility: [facility] Address: [address] [place] [address] Performed By: #### 2 4323-8 ####[facility] LABCLIA [id number] [place] [address] Anion gap [Moles/Vol] 12 mmol/L Normal 9-18 [facility] Comment on above: Order Comment: Speci men Type: BLOOD SPECIMENOrdering Facility: [facility] Address: [address] [place] [address] Performed By: #### 2 4323-8 ####[facility] LABCLIA [id number] [place] [address] AST [Catalytic activity/Vol] 15 U/L Normal 13-35 [facility] Comment on above: Order Comment: Speci men Type: BLOOD SPECIMENOrdering Facility: [facility] Address: [address] [place] [address] Performed By: #### 2 4323-8 ####[facility] LABCLIA [id number] [place] [address] Bilirubin [Mass/Vol] 0.4 mg/dL Normal 0.2-1.3 [facility] Comment on above: Order Comment: Speci men Type: BLOOD SPECIMENOrdering Facility: [facility] Address: [address] [place] [address] Performed By: #### 2 4323-8 ####[facility] LABCLIA [id number] [place] [address] Calcium [Mass/Vol] 9.9 mg/dL Normal 8.5-10.2 [facility] Comment on above: Order Comment: Speci men Type: BLOOD SPECIMENOrdering Facility: [facility] Address: [address] [place] [address] Performed By: #### 2 4323-8 ####[facility] LABCLIA [id number] [place] [address] Chloride [Moles/Vol] 104 mmol/L Normal 97-105 [facility] Comment on above: Order Comment: Speci men Type: BLOOD SPECIMENOrdering Facility: [facility] Address: [address] [place] [address] Performed By: #### 2 4323-8 ####[facility] LABCLIA [id number] [place] [address] CO2 [Moles/Vol] 24 mmol/L Normal 22-30 [facility] Comment on above: Order Comment: Speci men Type: BLOOD SPECIMENOrdering Facility: [facility] Address: [address] [place] [address] Performed By: #### 2 4323-8 ####[facility] LABCLIA [id number] [place] [address] Creatinine [Mass/Vol] 1.35 mg/dL High 0.58-0.96 [facility] Comment on above: Order Comment: Speci men Type: BLOOD SPECIMENOrdering Facility: [facility] Address: [address] [place] [address] Performed By: #### 2 4323-8 ####[facility] LABCLIA [id number] [place] [address] Creatinine and Glomerular filtration rate.predicted panel (S/P/Bld) 43 mL/min/1.73m??? Low >=60 [facility] Comment on above: Order Comment: Speci men Type: BLOOD SPECIMENOrdering Facility: [facility] Address: [address] [place] [address] Result Comment: Polina mated Glomerular Filtration Rate (eGFR) is calculated using the 2020 CKD-EPI creatinine equation. This equation utilizes serum creatinine, sex, and age as parameters. The creatinine assay has traceable calibration to isotope dilution-mass spectrometry. Refer to KDIGO guidelines for clinical interpretation. In patients with unstable renal function, e.g. those with acute kidney injury, the eGFR may not accurately reflect actual GFR. Performed By: #### 2 4323-8 ####[facility] LABCLIA [id number] [place] [address] Glucose [Mass/Vol] 113 mg/dL High 74-99 [facility] Comment on above: Order Comment: Sarai elda Type: BLOOD SPECIMENOrdering Facility: [facility] Address: [address] [place] [address] Result Comment: The [place] [employer] (ADA) provides guidance for cutoff values for fasting glucose and random glucose. The ADA defines fasting as no caloric intake for at least 8 hours. Fasting plasma glucose results between 100 to 125 mg/dL indicate increased risk for diabetes (prediabetes).Fasting plasma glucose results greater than or equal to 126 mg/dL meet the criteria for diagnosis of diabetes. In the absence of unequivocal hyperglycemia, results should be confirmed by repeat testing. In a patient with classic symptoms of hyperglycemia or hyperglycemic crisis, random plasma glucose results greater than or equal to 200 mg/dL meet the criteria for diagnosis of diabetes.Reference: Standards of Medical Care in Diabetes 2016, [employer]. Diabetes Care. 2016.39(Suppl 1). Performed By: #### 2 4323-8 ####[facility] LABCLIA [id number] [place] [address] Potassium [Moles/Vol] 3.7 mmol/L Normal 3.7-5.1 [facility] Comment on above: Order Comment: Speci men Type: BLOOD SPECIMENOrdering Facility: [facility] Address: [address] [place] [address] Performed By: #### 2 4323-8 ####[facility] LABCLIA [id number] [place] [address] Protein [Mass/Vol] 6.8 g/dL Normal 6.3-8.0 [facility] Comment on above: Order Comment: Speci men Type: BLOOD SPECIMENOrdering Facility: [facility] Address: [address] [place] [address] Performed By: #### 2 4323-8 ####[facility] LABCLIA [id number] [place] [address] Sodium [Moles/Vol] 140 mmol/L Normal 136-144 [facility] Comment on above: Order Comment: Speci men Type: BLOOD SPECIMENOrdering Facility: [facility] Address: [address] [place] [address] Performed By: #### 2 4323-8 ####[facility] LABCLIA [id number] [place] [address] Urea nitrogen [Mass/Vol] 23 mg/dL High 7-21 [facility] Comment on above: Order Comment: Speci men Type: BLOOD SPECIMENOrdering Facility: [facility] Address: [address] [place] [address] Performed By: #### 2 4323-8 ####[facility] LABCLIA [id number] [place] [address] Pre-Certification Formon Pre-Certification Form [id number]#1.00T IFF Normal [facility] Consultation Noteon 01-14-20 Consultation Note [id number]#[id number] FF Normal [facility] CNOVSPon 01-07-2023 CNOVSP Normal [facility] CNPNon 01-06-2023 CNPN Normal [facility] CBC W Auto Differential pane l (Bld)on 01-03-2023 Basophils (Bld) [#/Vol] 10*3/uL Normal <0.11 [facility] Comment on above: Order Comment: Speci men Type: BLOOD SPECIMENOrdering Facility: [facility] Address: [address] [place] [address] Performed By: #### 5 7021-8 ####[facility] LABCLIA [id number] [place] [address] Basophils/100 WBC (Bld) 0.8 % Normal [facility] Comment on above: Order Comment: Speci men Type: BLOOD SPECIMENOrdering Facility: [facility] Address: [address] [place] [address] Performed By: #### 5 7021-8 ####[facility] LABCLIA [id number] [place] [address] Differential cell count method Nom (Bld) Auto Normal [facility] Comment on above: Order Comment: Speci men Type: BLOOD SPECIMENOrdering Facility: [facility] Address: [address] [place] [address] Performed By: #### 5 7021-8 ####[facility] LABCLIA [id number] [place] [address] Eosinophils (Bld) [#/Vol] 0.03 10*3/uL Normal <0.46 [facility] Comment on above: Order Comment: Speci men Type: BLOOD SPECIMENOrdering Facility: [facility] Address: [address] [place] [address] Performed By: #### 5 7021-8 ####[facility] LABCLIA [id number] [place] [address] Eosinophils/100 WBC (Bld) 1.2 % Normal [facility] Comment on above: Order Comment: Speci men Type: BLOOD SPECIMENOrdering Facility: [facility] Address: [address] [place] [address] Performed By: #### 5 7021-8 ####[facility] LABCLIA [id number] [place] [address] Erythrocyte distribution width (RBC) [Ratio] 16.3 % High 11.5-15.0 [facility] Comment on above: Order Comment: Speci men Type: BLOOD SPECIMENOrdering Facility: [facility] Address: [address] [place] [address] Performed By: #### 5 7021-8 ####[facility] LABCLIA [id number] [place] [address] Hematocrit (Bld) [Volume fraction] 33.2 % Low 36.0-46.0 [facility] Comment on above: Order Comment: Speci men Type: BLOOD SPECIMENOrdering Facility: [facility] Address: [address] [place] [address] Performed By: #### 5 7021-8 ####[facility] LABCLIA [id number] [place] [address] Hemoglobin (Bld) [Mass/Vol] 11.4 g/dL Low 11.5-15.5 [facility] Comment on above: Order Comment: Speci men Type: BLOOD SPECIMENOrdering Facility: [facility] Address: [address] [place] [address] Performed By: #### 5 7021-8 ####[facility] LABCLIA [id number] [place] [address] Immature granulocytes (Bld) [#/Vol] 10*3/uL Normal <0.10 [facility] Comment on above: Order Comment: Speci men Type: BLOOD SPECIMENOrdering Facility: [facility] Address: [address] [place] [address] Performed By: #### 5 7021-8 ####[facility] LABCLIA [id number] [place] [address] Immature granulocytes/100 WBC (Bld) 0.4 % Normal [facility] Comment on above: Order Comment: Speci men Type: BLOOD SPECIMENOrdering Facility: [facility] Address: [address] [place] [address] Performed By: #### 5 7021-8 ####[facility] LABCLIA [id number] [place] [address] Lymphocytes (Bld) [#/Vol] 0.97 10*3/uL Low 1.00-4.00 [facility] Comment on above: Order Comment: Speci men Type: BLOOD SPECIMENOrdering Facility: [facility] Address: [address] [place] [address] Performed By: #### 5 7021-8 ####[facility] LABIA [id number] [place] [address] Lymphocytes/100 WBC (Bld) 38.5 % Normal [facility] Comment on above: Order Comment: Speci men Type: BLOOD SPECIMENOrdering Facility: [facility] Address: [address] [place] [address] Performed By: #### 5 7021-8 ####[facility] LABCLIA [id number] [place] [address] MCH (RBC) [Entitic mass] 33.1 pg Normal 26.0-34.0 [facility] Comment on above: Order Comment: Speci men Type: BLOOD SPECIMENOrdering Facility: [facility] Address: [address] [place] [address] Performed By: #### 5 7021-8 ####[facility] LABIA [id number] [place] [address] MCHC (RBC) [Mass/Vol] 34.3 g/dL Normal 30.5-36.0 [facility] Comment on above: Order Comment: Speci men Type: BLOOD SPECIMENOrdering Facility: [facility] Address: [address] [place] [address] Performed By: #### 5 7021-8 ####[facility] LABCLIA [id number] [place] [address] MCV (RBC) [Entitic vol] 96.5 fL Normal 80.0-100.0 [facility] Comment on above: Order Comment: Speci men Type: BLOOD SPECIMENOrdering Facility: [facility] Address: [address] [place] [address] Performed By: #### 5 7021-8 ####[facility] LABCLIA [id number] [place] [address] Monocytes (Bld) [#/Vol] 0.16 10*3/uL Normal <0.87 [facility] Comment on above: Order Comment: Speci men Type: BLOOD SPECIMENOrdering Facility: [facility] Address: [address] [place] [address] Performed By: #### 5 7021-8 ####[facility] LABCLIA [id number] [place] [address] Monocytes/100 WBC (Bld) 6.3 % Normal [facility] Comment on above: Order Comment: Speci men Type: BLOOD SPECIMENOrdering Facility: [facility] Address: [address] [place] [address] Performed By: #### 5 7021-8 ####[facility] LABCLIA [id number] [place] [address] Neutrophils (Bld) [#/Vol] 1.33 10*3/uL Low 1.45-7.50 [facility] Comment on above: Order Comment: Speci men Type: BLOOD SPECIMENOrdering Facility: [facility] Address: [address] [place] [address] Performed By: #### 5 7021-8 ####[facility] LABCLIA [id number] [place] [address] Neutrophils/100 WBC (Bld) 52.8 % Normal [facility] Comment on above: Order Comment: Speci men Type: BLOOD SPECIMENOrdering Facility: [facility] Address: [address] [place] [address] Performed By: #### 5 7021-8 ####[facility] LABCLIA [id number] [place] [address] Nucleated RBC (Bld) [#/Vol] 10*3/uL Normal <0.01 [facility] Comment on above: Order Comment: Speci men Type: BLOOD SPECIMENOrdering Facility: [facility] Address: [address] [place] [address] Performed By: #### 5 7021-8 ####[facility] LABCLIA [id number] [place] [address] Nucleated RBC/100 WBC (Bld) [Ratio] 0.0 /100 WBC Normal [facility] Comment on above: Order Comment: Speci men Type: BLOOD SPECIMENOrdering Facility: [facility] Address: [address] [place] [address] Performed By: #### 5 7021-8 ####[facility] LABCLIA [id number] [place] [address] Platelet mean volume (Bld) [Entitic vol] 9.4 fL Normal 9.0-12.7 [facility] Comment on above: Order Comment: Speci men Type: BLOOD SPECIMENOrdering Facility: [facility] Address: [address] [place] [address] Performed By: #### 5 7021-8 ####[facility] LABCLIA [id number] [place] [address] Platelets (Bld) [#/Vol] 134 10*3/uL Low 150-400 [facility] Comment on above: Order Comment: Speci men Type: BLOOD SPECIMENOrdering Facility: [facility] Address: [address] [place] [address] Performed By: #### 5 7021-8 ####[facility] LABCLIA [id number] [place] [address] RBC (Bld) [#/Vol] 3.44 10*6/uL Low 3.90-5.20 [facility] Comment on above: Order Comment: Speci men Type: BLOOD SPECIMENOrdering Facility: [facility] Address: [address] [place] [address] Performed By: #### 5 7021-8 ####[facility] LABCLIA [id number] [place] [address] WBC (Bld) [#/Vol] 2.52 10*3/uL Low 3.70-11.00 [facility] Comment on above: Order Comment: Speci men Type: BLOOD SPECIMENOrdering Facility: [facility] Address: [address] [place] [address] Performed By: #### 5 7021-8 ####[facility] LABCLIA [id number] [place] [address] CT ABD/PEL W IVCONon 023 CT ABD/PEL W IVCON Normal [facility] CT CHEST W IVCONon 3 CT CHEST W IVCON Invalid Interpretation Code [facility] Cancer Ag15-3 SerPl-aCncon 1 03-05-2022 Cancer Ag 15-3 Qn 16.8 U/mL Normal <26.0 [facility] Comment on above: Order Comment: Speci men Type: BLOOD SPECIMENOrdering Facility: [facility] Address: [address] [place] [address] Result Comment: The CA 15-3 test methodology used is the Electrochemiluminescence Immunoassay by [employer]. Results obtained with different methods or kits cannot be used interchangeably. Performed By: #### 6 875-9 ####[facility] LABCLIA [id number] [place] [address] [place] Cancer Ag27-29 SerPl-aCncon 01-03-2023 Cancer Ag 27-29 Qn 22.2 [arb'U]/mL Normal <38.6 [facility] Comment on above: Order Comment: Speci men Type: BLOOD SPECIMENOrdering Facility: [facility] Address: [address] [place] [address] Result Comment: The CA27.29 test was performed using the [employer] XP chemiluminometric immunoassay method. Results obtained with different assay methods or kits cannot be used interchangeably. Performed By: #### 1 7842-6 ####[facility] LABCLIA [id number] [facility] [place] [address] [place] Comprehensive metabolic 2000 panelon 01-03-2023 Albumin [Mass/Vol] 4.5 g/dL Normal 3.9-4.9 [facility] Comment on above: Order Comment: Speci men Type: BLOOD SPECIMENOrdering Facility: [facility] Address: [address] [place] [address] Performed By: #### 2 4323-8 ####[facility] LABCLIA [id number] [place] [address] ALP [Catalytic activity/Vol] 73 U/L Normal 34-123 [facility] Comment on above: Order Comment: Speci men Type: BLOOD SPECIMENOrdering Facility: [facility] Address: [address] [place] [address] Performed By: #### 2 4323-8 ####[facility] LABCLIA [id number] [place] [address] ALT [Catalytic activity/Vol] 9 U/L Normal 7-38 [facility] Comment on above: Order Comment: Speci men Type: BLOOD SPECIMENOrdering Facility: [facility] Address: [address] [place] [address] Performed By: #### 2 4323-8 ####[facility] LABCLIA [id number] [place] [address] Anion gap [Moles/Vol] 11 mmol/L Normal 9-18 [facility] Comment on above: Order Comment: Speci men Type: BLOOD SPECIMENOrdering Facility: [facility] Address: [address] [place] [address] Performed By: #### 2 4323-8 ####[facility] LABCLIA [id number] [place] [address] AST [Catalytic activity/Vol] 14 U/L Normal 13-35 [facility] Comment on above: Order Comment: Speci men Type: BLOOD SPECIMENOrdering Facility: [facility] Address: [address] [place] [address] Performed By: #### 2 4323-8 ####[facility] LABCLIA [id number] [place] [address] Bilirubin [Mass/Vol] 0.4 mg/dL Normal 0.2-1.3 [facility] Comment on above: Order Comment: Speci men Type: BLOOD SPECIMENOrdering Facility: [facility] Address: [address] [place] [address] Performed By: #### 2 4323-8 ####[facility] LABCLIA [id number] [place] [address] Calcium [Mass/Vol] 10.4 mg/dL High 8.5-10.2 [facility] Comment on above: Order Comment: Speci men Type: BLOOD SPECIMENOrdering Facility: [facility] Address: [address] [place] [address] Performed By: #### 2 4323-8 ####[facility] LABCLIA [id number] [place] [address] Chloride [Moles/Vol] 107 mmol/L High 97-105 [facility] Comment on above: Order Comment: Speci men Type: BLOOD SPECIMENOrdering Facility: [facility] Address: [address] [place] [address] Performed By: #### 2 4323-8 ####[facility] LABCLIA [id number] [place] [address] CO2 [Moles/Vol] 24 mmol/L Normal 22-30 [facility] Comment on above: Order Comment: Speci men Type: BLOOD SPECIMENOrdering Facility: [facility] Address: [address] [place] [address] Performed By: #### 2 4323-8 ####[facility] LABCLIA [id number] [place] [address] Creatinine [Mass/Vol] 1.27 mg/dL High 0.58-0.96 [facility] Comment on above: Order Comment: Speci men Type: BLOOD SPECIMENOrdering Facility: [facility] Address: [address] [place] [address] Performed By: #### 2 4323-8 ####[facility] LABCLIA [id number] [place] [address] Creatinine and Glomerular filtration rate.predicted panel (S/P/Bld) 46 mL/min/1.73m??? Low >=60 [facility] Comment on above: Order Comment: Speci men Type: BLOOD SPECIMENOrdering Facility: [facility] Address: [address] [place] [address] Result Comment: Polina mated Glomerular Filtration Rate (eGFR) is calculated using the 2020 CKD-EPI creatinine equation. This equation utilizes serum creatinine, sex, and age as parameters. The creatinine assay has traceable calibration to isotope dilution-mass spectrometry. Refer to KDIGO guidelines for clinical interpretation. In patients with unstable renal function, e.g. those with acute kidney injury, the eGFR may not accurately reflect actual GFR. Performed By: #### 2 4323-8 ####[facility] LABCLIA [id number] [place] [address] Glucose [Mass/Vol] 113 mg/dL High 74-99 [facility] Comment on above: Order Comment: Sarai elda Type: BLOOD SPECIMENOrdering Facility: [facility] Address: [address] [place] [address] Result Comment: The [place] Diabetes [employer] (ADA) provides guidance for cutoff values for fasting glucose and random glucose. The ADA defines fasting as no caloric intake for at least 8 hours. Fasting plasma glucose results between 100 to 125 mg/dL indicate increased risk for diabetes (prediabetes).Fasting plasma glucose results greater than or equal to 126 mg/dL meet the criteria for diagnosis of diabetes. In the absence of unequivocal hyperglycemia, results should be confirmed by repeat testing. In a patient with classic symptoms of hyperglycemia or hyperglycemic crisis, random plasma glucose results greater than or equal to 200 mg/dL meet the criteria for diagnosis of diabetes.Reference: Standards of Medical Care in Diabetes 2016, [place] [employer]. Diabetes Care. 2016.39(Suppl 1). Performed By: #### 2 4323-8 ####[facility] LABCLIA [id number] [place] [address] Potassium [Moles/Vol] 4.0 mmol/L Normal 3.7-5.1 [facility] Comment on above: Order Comment: Speci men Type: BLOOD SPECIMENOrdering Facility: [facility] Address: [address] [place] [address] Performed By: #### 2 4323-8 ####[facility] LABCLIA [id number] [place] [address] Protein [Mass/Vol] 6.9 g/dL Normal 6.3-8.0 [facility] Comment on above: Order Comment: Speci men Type: BLOOD SPECIMENOrdering Facility: [facility] Address: [address] [place] [address] Performed By: #### 2 4323-8 ####[facility] LABCLIA [id number] [place] [address] Sodium [Moles/Vol] 142 mmol/L Normal 136-144 [facility] Comment on above: Order Comment: Speci men Type: BLOOD SPECIMENOrdering Facility: [facility] Address: [address] [place] [address] Performed By: #### 2 4323-8 ####[facility] LABCLIA [id number] [place] [address] Urea nitrogen [Mass/Vol] 19 mg/dL Normal 7-21 [facility] Comment on above: Order Comment: Speci men Type: BLOOD SPECIMENOrdering Facility: [facility] Address: [address] [place], [place] [address], [place] [address] Performed By: #### 2 4323-8 ####[facility] LABIA [id number] [place] [address] CNPNon 12-27-2022 CNPN Normal [facility] CNPNon 12-24-2022 CNPN Normal [facility] CNOVon 12-21-2022 CNOV Normal [facility] Consultation Noteon 12-22-19 Consultation Note [id number]#1.00T IFF Normal [facility] CNOVon 12-14-2022 CNOV Normal [facility] Discharge Note - PTon 2022 Discharge Note - PT [id number]#1.00T IFF Normal [facility] CBC W Auto Differential pane l (Bld)on 12-13-2022 Basophils (Bld) [#/Vol] <0.11 k/uL [facility] Basophils/100 WBC (Bld) 0.9 % [facility] Differential cell count method Nom (Bld) Auto [facility] Eosinophils (Bld) [#/Vol] 0.04 10*3/uL <0.46 k/uL [facility] Eosinophils/100 WBC (Bld) 1.8 % [facility] Erythrocyte distribution width (RBC) [Ratio] 14.6 % 11.5 - 15.0 % [facility] Hematocrit (Bld) [Volume fraction] 35.0 % Low 36.0 - 46.0 % [facility] Hemoglobin (Bld) [Mass/Vol] 11.6 g/dL 11.5 - 15.5 g/dL [facility] Immature granulocytes (Bld) [#/Vol] <0.10 k/uL [facility] Immature granulocytes/100 WBC (Bld) 0.5 % [facility] Lymphocytes (Bld) [#/Vol] 0.94 10*3/uL Low 1.00 - 4.00 k/uL [facility] Lymphocytes/100 WBC (Bld) 43.1 % [facility] MCH (RBC) [Entitic mass] 32.1 pg 26.0 - 34.[address] [facility] MCHC (RBC) [Mass/Vol] 33.1 g/dL 30.5 - 36.0 g/dL [facility] MCV (RBC) [Entitic vol] 97.0 fL 80.0 - 100.[address] [facility] Monocytes (Bld) [#/Vol] 0.14 10*3/uL <0.87 k/uL [facility] Monocytes/100 WBC (Bld) 6.4 % [facility] Neutrophils (Bld) [#/Vol] 1.03 10*3/uL Low 1.45 - 7.50 k/uL [facility] Neutrophils/100 WBC (Bld) 47.3 % [facility] Nucleated RBC (Bld) [#/Vol] <0.01 k/uL [facility] Nucleated RBC/100 WBC (Bld) [Ratio] 0.0 /[address] [facility] Platelet mean volume (Bld) [Entitic vol] 9.0 fL 9.0 - 12.[address] [facility] Platelets (Bld) [#/Vol] 121 10*3/uL Low 150 - 400 k/uL [facility] RBC (Bld) [#/Vol] 3.61 10*6/uL Low 3.90 - 5.20 m/uL [facility] WBC (Bld) [#/Vol] 2.18 10*3/uL Low 3.70 - 11.00 k/u L [facility] Basophils (Bld) [#/Vol] 10*3/uL Normal <0.11 [facility] Comment on above: Order Comment: Speci men Type: BLOOD SPECIMENOrdering Facility: [facility] Address: [address] [place] [address] Performed By: #### 5 7021-8 ####[facility] LABCLIA [id number] [place] [address] Basophils/100 WBC (Bld) 0.9 % Normal [facility] Comment on above: Order Comment: Speci men Type: BLOOD SPECIMENOrdering Facility: [facility] Address: [address] [place] [address] Performed By: #### 5 7021-8 ####[facility] LABCLIA [id number] [place] [address] Differential cell count method Nom (Bld) Auto Normal [facility] Comment on above: Order Comment: Speci men Type: BLOOD SPECIMENOrdering Facility: [facility] Address: [address] [place] [address] Performed By: #### 5 7021-8 ####[facility] LABCLIA [id number] [place] [address] Eosinophils (Bld) [#/Vol] 0.04 10*3/uL Normal <0.46 [facility] Comment on above: Order Comment: Speci men Type: BLOOD SPECIMENOrdering Facility: [facility] Address: [address] [place] [address] Performed By: #### 5 7021-8 ####[facility] LABIA [id number] [place] [address] Eosinophils/100 WBC (Bld) 1.8 % Normal [facility] Comment on above: Order Comment: Speci men Type: BLOOD SPECIMENOrdering Facility: [facility] Address: [address] [place] [address] Performed By: #### 5 7021-8 ####[facility] LABCLIA [id number] [place] [address] Erythrocyte distribution width (RBC) [Ratio] 14.6 % Normal 11.5-15.0 [facility] Comment on above: Order Comment: Speci men Type: BLOOD SPECIMENOrdering Facility: [facility] Address: [address] [place] [address] Performed By: #### 5 7021-8 ####[facility] LABIA [id number] [place] [address] Hematocrit (Bld) [Volume fraction] 35.0 % Low 36.0-46.0 [facility] Comment on above: Order Comment: Speci men Type: BLOOD SPECIMENOrdering Facility: [facility] Address: [address] [place] [address] Performed By: #### 5 7021-8 ####[facility] LABCLIA [id number] [place] [address] Hemoglobin (Bld) [Mass/Vol] 11.6 g/dL Normal 11.5-15.5 [facility] Comment on above: Order Comment: Speci men Type: BLOOD SPECIMENOrdering Facility: [facility] Address: [address] [place] [address] Performed By: #### 5 7021-8 ####[facility] LABCLIA [id number] [place] [address] Immature granulocytes (Bld) [#/Vol] 10*3/uL Normal <0.10 [facility] Comment on above: Order Comment: Speci men Type: BLOOD SPECIMENOrdering Facility: [facility] Address: [address] [place] [address] Performed By: #### 5 7021-8 ####[facility] LABCLIA [id number] [place] [address] Immature granulocytes/100 WBC (Bld) 0.5 % Normal [facility] Comment on above: Order Comment: Speci men Type: BLOOD SPECIMENOrdering Facility: [facility] Address: [address] [place] [address] Performed By: #### 5 7021-8 ####[facility] LABCLIA [id number] [place] [address] Lymphocytes (Bld) [#/Vol] 0.94 10*3/uL Low 1.00-4.00 [facility] Comment on above: Order Comment: Speci men Type: BLOOD SPECIMENOrdering Facility: [facility] Address: [address] [place] [address] Performed By: #### 5 7021-8 ####[facility] LABCLIA [id number] [place] [address] Lymphocytes/100 WBC (Bld) 43.1 % Normal [facility] Comment on above: Order Comment: Speci men Type: BLOOD SPECIMENOrdering Facility: [facility] Address: [address] [place] [address] Performed By: #### 5 7021-8 ####[facility] LABCLIA [id number] [place] [address] MCH (RBC) [Entitic mass] 32.1 pg Normal 26.0-34.0 [facility] Comment on above: Order Comment: Speci men Type: BLOOD SPECIMENOrdering Facility: [facility] Address: [address] [place] [address] Performed By: #### 5 7021-8 ####[facility] LABIA [id number] [place] [address] MCHC (RBC) [Mass/Vol] 33.1 g/dL Normal 30.5-36.0 [facility] Comment on above: Order Comment: Speci men Type: BLOOD SPECIMENOrdering Facility: [facility] Address: [address] [place] [address] Performed By: #### 5 7021-8 ####[facility] LABIA [id number] [place] [address] MCV (RBC) [Entitic vol] 97.0 fL Normal 80.0-100.0 [facility] Comment on above: Order Comment: Speci men Type: BLOOD SPECIMENOrdering Facility: [facility] Address: [address] [place] [address] Performed By: #### 5 7021-8 ####[facility] LABCLIA [id number] [place] [address] Monocytes (Bld) [#/Vol] 0.14 10*3/uL Normal <0.87 [facility] Comment on above: Order Comment: Speci men Type: BLOOD SPECIMENOrdering Facility: [facility] Address: [address] [place] [address] Performed By: #### 5 7021-8 ####[facility] LABCLIA [id number] [place] [address] Monocytes/100 WBC (Bld) 6.4 % Normal [facility] Comment on above: Order Comment: Speci men Type: BLOOD SPECIMENOrdering Facility: [facility] Address: [address] [place] [address] Performed By: #### 5 7021-8 ####[facility] LABCLIA [id number] [place] [address] Neutrophils (Bld) [#/Vol] 1.03 10*3/uL Low 1.45-7.50 [facility] Comment on above: Order Comment: Speci men Type: BLOOD SPECIMENOrdering Facility: [facility] Address: [address] [place] [address] Performed By: #### 5 7021-8 ####[facility] LABCLIA [id number] [place] [address] Neutrophils/100 WBC (Bld) 47.3 % Normal [facility] Comment on above: Order Comment: Speci men Type: BLOOD SPECIMENOrdering Facility: [facility] Address: [address] [place] [address] Performed By: #### 5 7021-8 ####[facility] LABCLIA [id number] [place] [address] Nucleated RBC (Bld) [#/Vol] 10*3/uL Normal <0.01 [facility] Comment on above: Order Comment: Speci men Type: BLOOD SPECIMENOrdering Facility: [facility] Address: [address] [place] [address] Performed By: #### 5 7021-8 ####[facility] LABCLIA [id number] [place] [address] Nucleated RBC/100 WBC (Bld) [Ratio] 0.0 /100 WBC Normal [facility] Comment on above: Order Comment: Speci men Type: BLOOD SPECIMENOrdering Facility: [facility] Address: [address] [place] [address] Performed By: #### 5 7021-8 ####[facility] LABCLIA [id number] [place] [address] Platelet mean volume (Bld) [Entitic vol] 9.0 fL Normal 9.0-12.7 [facility] Comment on above: Order Comment: Speci men Type: BLOOD SPECIMENOrdering Facility: [facility] Address: [address] [place] [address] Performed By: #### 5 7021-8 ####[facility] LABCLIA [id number] [place] [address] Platelets (Bld) [#/Vol] 121 10*3/uL Low 150-400 [facility] Comment on above: Order Comment: Speci men Type: BLOOD SPECIMENOrdering Facility: [facility] Address: [address] [place] [address] Performed By: #### 5 7021-8 ####[facility] LABIA [id number] [place] [address] RBC (Bld) [#/Vol] 3.61 10*6/uL Low 3.90-5.20 [facility] Comment on above: Order Comment: Speci men Type: BLOOD SPECIMENOrdering Facility: [facility] Address: [address] [place] [address] Performed By: #### 5 7021-8 ####[facility] LABIA [id number] [place] [address] WBC (Bld) [#/Vol] 2.18 10*3/uL Low 3.70-11.00 [facility] Comment on above: Order Comment: Speci men Type: BLOOD SPECIMENOrdering Facility: [facility] Address: [address] [place] [address] Performed By: #### 5 7021-8 ####[facility] LABIA [id number] [place] [address] CNOVSPon 12-13-2022 CNOVSP Normal [facility] CNPNon 12-13-2022 CNPN Normal [facility] Comprehensive metabolic 2000 panelon 12-13-2022 Albumin [Mass/Vol] 4.4 g/dL 3.9 - 4.9 g/dL [facility] ALP [Catalytic activity/Vol] 86 U/L 34 - 123 U/L [facility] ALT [Catalytic activity/Vol] 12 U/L 7 - 38 U/L [facility] Anion gap [Moles/Vol] 10 mmol/L 9 - 18 mmol/L [facility] AST [Catalytic activity/Vol] 17 U/L 13 - 35 U/L [facility] Bilirubin [Mass/Vol] 0.4 mg/dL 0.2 - 1.3 mg/dL [facility] Calcium [Mass/Vol] 10.4 mg/dL High 8.5 - 10.2 mg/dL [facility] Chloride [Moles/Vol] 105 mmol/L 97 - 105 mmol/L [facility] CO2 [Moles/Vol] 24 mmol/L 22 - 30 mmol/L [facility] Creatinine [Mass/Vol] 1.11 mg/dL High 0.58 - 0.96 mg/dL [facility] Estimated Glomerular Filtration Rate 54 mL/min/1.73m Low >=60 mL/min/1.73m [facility] Glucose [Mass/Vol] 106 mg/dL High 74 - 99 mg/dL [facility] Potassium [Moles/Vol] 4.4 mmol/L 3.7 - 5.1 mmol/L [facility] Protein [Mass/Vol] 6.7 g/dL 6.3 - 8.0 g/dL [facility] Sodium [Moles/Vol] 139 mmol/L 136 - 144 mmol/L [facility] Urea nitrogen [Mass/Vol] 21 mg/dL 7 - 21 mg/dL [facility] Albumin [Mass/Vol] 4.4 g/dL Normal 3.9-4.9 [facility] Comment on above: Order Comment: Speci men Type: BLOOD SPECIMENOrdering Facility: [facility] Address: [address] [place] [address] Performed By: #### 2 4323-8 ####[facility] LABCLIA [id number] [place] [address] ALP [Catalytic activity/Vol] 86 U/L Normal 34-123 [facility] Comment on above: Order Comment: Speci men Type: BLOOD SPECIMENOrdering Facility: [facility] Address: [address] [place] [address] Performed By: #### 2 4323-8 ####[facility] LABCLIA [id number] [place] [address] ALT [Catalytic activity/Vol] 12 U/L Normal 7-38 [facility] Comment on above: Order Comment: Speci men Type: BLOOD SPECIMENOrdering Facility: [facility] Address: [address] [place] [address] Performed By: #### 2 4323-8 ####[facility] LABCLIA [id number] [place] [address] Anion gap [Moles/Vol] 10 mmol/L Normal 9-18 [facility] Comment on above: Order Comment: Speci men Type: BLOOD SPECIMENOrdering Facility: [facility] Address: [address] [place] [address] Performed By: #### 2 4323-8 ####[facility] LABCLIA [id number] [place] [address] AST [Catalytic activity/Vol] 17 U/L Normal 13-35 [facility] Comment on above: Order Comment: Speci men Type: BLOOD SPECIMENOrdering Facility: [facility] Address: [address] [place] [address] Performed By: #### 2 4323-8 ####[facility] LABCLIA [id number] [place] [address] Bilirubin [Mass/Vol] 0.4 mg/dL Normal 0.2-1.3 [facility] Comment on above: Order Comment: Speci men Type: BLOOD SPECIMENOrdering Facility: [facility] Address: [address] [place] [address] Performed By: #### 2 4323-8 ####[facility] LABCLIA [id number] [place] [address] Calcium [Mass/Vol] 10.4 mg/dL High 8.5-10.2 [facility] Comment on above: Order Comment: Speci men Type: BLOOD SPECIMENOrdering Facility: [facility] Address: [address] [place] [address] Performed By: #### 2 4323-8 ####[facility] LABCLIA [id number] [place] [address] Chloride [Moles/Vol] 105 mmol/L Normal 97-105 [facility] Comment on above: Order Comment: Speci men Type: BLOOD SPECIMENOrdering Facility: [facility] Address: [address] [place] [address] Performed By: #### 2 4323-8 ####[facility] LABCLIA [id number] [place] [address] CO2 [Moles/Vol] 24 mmol/L Normal 22-30 [facility] Comment on above: Order Comment: Speci men Type: BLOOD SPECIMENOrdering Facility: [facility] Address: [address] [place] [address] Performed By: #### 2 4323-8 ####[facility] LABCLIA [id number] [place] [address] Creatinine [Mass/Vol] 1.11 mg/dL High 0.58-0.96 [facility] Comment on above: Order Comment: Speci men Type: BLOOD SPECIMENOrdering Facility: [facility] Address: [address] [place] [address] Performed By: #### 2 4323-8 ####[facility] LABIA [id number] [place] [address] Creatinine and Glomerular filtration rate.predicted panel (S/P/Bld) 54 mL/min/1.73m??? Low >=60 [facility] Comment on above: Order Comment: Speci men Type: BLOOD SPECIMENOrdering Facility: [facility] Address: [address] [place] [address] Result Comment: Polina mated Glomerular Filtration Rate (eGFR) is calculated using the 2020 CKD-EPI creatinine equation. This equation utilizes serum creatinine, sex, and age as parameters. The creatinine assay has traceable calibration to isotope dilution-mass spectrometry. Refer to KDIGO guidelines for clinical interpretation. In patients with unstable renal function, e.g. those with acute kidney injury, the eGFR may not accurately reflect actual GFR. Performed By: #### 2 4323-8 ####[facility] LABCLIA [id number] [place] [address] Glucose [Mass/Vol] 106 mg/dL High 74-99 [facility] Comment on above: Order Comment: Speci men Type: BLOOD SPECIMENOrdering Facility: [facility] Address: [address] [place] [address] Result Comment: The [place] [employer] (ADA) provides guidance for cutoff values for fasting glucose and random glucose. The ADA defines fasting as no caloric intake for at least 8 hours. Fasting plasma glucose results between 100 to 125 mg/dL indicate increased risk for diabetes (prediabetes).Fasting plasma glucose results greater than or equal to 126 mg/dL meet the criteria for diagnosis of diabetes. In the absence of unequivocal hyperglycemia, results should be confirmed by repeat testing. In a patient with classic symptoms of hyperglycemia or hyperglycemic crisis, random plasma glucose results greater than or equal to 200 mg/dL meet the criteria for diagnosis of diabetes.Reference: Standards of Medical Care in Diabetes 2016, [place] [employer]. Diabetes Care. 2016.39(Suppl 1). Performed By: #### 2 4323-8 ####[facility] LABCLIA [id number] [place] [address] Potassium [Moles/Vol] 4.4 mmol/L Normal 3.7-5.1 [facility] Comment on above: Order Comment: Speci men Type: BLOOD SPECIMENOrdering Facility: [facility] Address: [address] [address] Performed By: #### 2 4323-8 ####[facility] LABCLIA [id number] [place] [address] Protein [Mass/Vol] 6.7 g/dL Normal 6.3-8.0 [facility] Comment on above: Order Comment: Speci men Type: BLOOD SPECIMENOrdering Facility: [facility] Address: [address] [place] [address] Performed By: #### 2 4323-8 ####[facility] LABCLIA [id number] [place] [address] Sodium [Moles/Vol] 139 mmol/L Normal 136-144 [facility] Comment on above: Order Comment: Speci men Type: BLOOD SPECIMENOrdering Facility: [facility] Address: [address] [place] [address] Performed By: #### 2 4323-8 ####[facility] LABCLIA [id number] [place] [address] Urea nitrogen [Mass/Vol] 21 mg/dL Normal 7-21 [facility] Comment on above: Order Comment: Speci men Type: BLOOD SPECIMENOrdering Facility: [facility] Address: [address] [place] [address] Performed By: #### 2 4323-8 ####[facility] LABCLIA [id number] [place] [address] CNOVon 11-30-2022 CNOV Normal [facility] CNPNon 11-26-2022 CNPN Normal [facility] CNOVon 11-23-2022 CNOV Normal [facility] Consultation Noteon 11-18-19 23 Consultation Note [id number] :[id number] Normal [facility] CNOVon 11-16-2022 CNOV Normal [facility] CBC W Auto Differential pane l (Bld)on 11-15-2022 Basophils (Bld) [#/Vol] <0.11 k/uL [facility] Basophils/100 WBC (Bld) 0.4 % [facility] Differential cell count method Nom (Bld) Auto [facility] Eosinophils (Bld) [#/Vol] 0.11 10*3/uL <0.46 k/uL [facility] Eosinophils/100 WBC (Bld) 2.2 % [facility] Erythrocyte distribution width (RBC) [Ratio] 14.5 % 11.5 - 15.0 % [facility] Hematocrit (Bld) [Volume fraction] 37.7 % 36.0 - 46.0 % [facility] Hemoglobin (Bld) [Mass/Vol] 12.7 g/dL 11.5 - 15.5 g/dL [facility] Immature granulocytes (Bld) [#/Vol] <0.10 k/uL [facility] Immature granulocytes/100 WBC (Bld) 0.4 % [facility] Lymphocytes (Bld) [#/Vol] 0.85 10*3/uL Low 1.00 - 4.00 k/uL [facility] Lymphocytes/100 WBC (Bld) 16.8 % [facility] MCH (RBC) [Entitic mass] 32.1 pg 26.0 - 34.[address] [facility] MCHC (RBC) [Mass/Vol] 33.7 g/dL 30.5 - 36.0 g/dL [facility] MCV (RBC) [Entitic vol] 95.2 fL 80.0 - 100.[address] [facility] Monocytes (Bld) [#/Vol] 0.45 10*3/uL <0.87 k/uL [facility] Monocytes/100 WBC (Bld) 8.9 % [facility] Neutrophils (Bld) [#/Vol] 3.61 10*3/uL 1.45 - 7.50 k/uL [facility] Neutrophils/100 WBC (Bld) 71.3 % [facility] Nucleated RBC (Bld) [#/Vol] <0.01 k/uL [facility] Nucleated RBC/100 WBC (Bld) [Ratio] 0.0 /[address] [facility] Platelet mean volume (Bld) [Entitic vol] 10.4 fL 9.0 - 12.[address] [facility] Platelets (Bld) [#/Vol] 157 10*3/uL 150 - 400 k/uL [facility] RBC (Bld) [#/Vol] 3.96 10*6/uL 3.90 - 5.20 m/uL [facility] WBC (Bld) [#/Vol] 5.06 10*3/uL 3.70 - 11.00 k/u L [facility] Basophils (Bld) [#/Vol] 10*3/uL Normal <0.11 [facility] Comment on above: Order Comment: Speci men Type: BLOOD SPECIMENOrdering Facility: [facility] Address: [address] [place] [address] Performed By: #### 5 7021-8 ####[facility] LABCLIA [id number] [place] [address] Basophils/100 WBC (Bld) 0.4 % Normal [facility] Comment on above: Order Comment: Speci men Type: BLOOD SPECIMENOrdering Facility: [facility] Address: [address] [place] [address] Performed By: #### 5 7021-8 ####[facility] LABCLIA [id number] [place] [address] Differential cell count method Nom (Bld) Auto Normal [facility] Comment on above: Order Comment: Speci men Type: BLOOD SPECIMENOrdering Facility: [facility] Address: [address] [place] [address] Performed By: #### 5 7021-8 ####[facility] LABCLIA [id number] [place] [address] Eosinophils (Bld) [#/Vol] 0.11 10*3/uL Normal <0.46 [facility] Comment on above: Order Comment: Speci men Type: BLOOD SPECIMENOrdering Facility: [facility] Address: [address] [address] Performed By: #### 5 7021-8 ####[facility] LABCLIA [id number] [place] [address] Eosinophils/100 WBC (Bld) 2.2 % Normal [facility] Comment on above: Order Comment: Speci men Type: BLOOD SPECIMENOrdering Facility: [facility] Address: [address] [place] [address] Performed By: #### 5 7021-8 ####[facility] LABCLIA [id number] [place] [address] Erythrocyte distribution width (RBC) [Ratio] 14.5 % Normal 11.5-15.0 [facility] Comment on above: Order Comment: Speci men Type: BLOOD SPECIMENOrdering Facility: [facility] Address: [address] [place] [address] Performed By: #### 5 7021-8 ####[facility] LABCLIA [id number] [place] [address] Hematocrit (Bld) [Volume fraction] 37.7 % Normal 36.0-46.0 [facility] Comment on above: Order Comment: Speci men Type: BLOOD SPECIMENOrdering Facility: [facility] Address: [address] [place] [address] Performed By: #### 5 7021-8 ####[facility] LABCLIA [id number] [place] [address] Hemoglobin (Bld) [Mass/Vol] 12.7 g/dL Normal 11.5-15.5 [facility] Comment on above: Order Comment: Speci men Type: BLOOD SPECIMENOrdering Facility: [facility] Address: [address] [place] [address] Performed By: #### 5 7021-8 ####[facility] LABCLIA [id number] [place] [address] Immature granulocytes (Bld) [#/Vol] 10*3/uL Normal <0.10 [facility] Comment on above: Order Comment: Speci men Type: BLOOD SPECIMENOrdering Facility: [facility] Address: [address] [place] [address] Performed By: #### 5 7021-8 ####[facility] LABIA [id number] [place] [address] Immature granulocytes/100 WBC (Bld) 0.4 % Normal [facility] Comment on above: Order Comment: Speci men Type: BLOOD SPECIMENOrdering Facility: [facility] Address: [address] [place] [address] Performed By: #### 5 7021-8 ####[facility] LABCLIA [id number] [place] [address] Lymphocytes (Bld) [#/Vol] 0.85 10*3/uL Low 1.00-4.00 [facility] Comment on above: Order Comment: Speci men Type: BLOOD SPECIMENOrdering Facility: [facility] Address: [address] [address] Performed By: #### 5 7021-8 ####[facility] LABCLIA [id number] [place] [address] Lymphocytes/100 WBC (Bld) 16.8 % Normal [facility] Comment on above: Order Comment: Speci men Type: BLOOD SPECIMENOrdering Facility: [facility] Address: [address] [address] Performed By: #### 5 7021-8 ####[facility] LABCLIA [id number] [place] [address] MCH (RBC) [Entitic mass] 32.1 pg Normal 26.0-34.0 [facility] Comment on above: Order Comment: Speci men Type: BLOOD SPECIMENOrdering Facility: [facility] Address: [address] [address] Performed By: #### 5 7021-8 ####[facility] LABCLIA [id number] [place] [address] MCHC (RBC) [Mass/Vol] 33.7 g/dL Normal 30.5-36.0 [facility] Comment on above: Order Comment: Speci men Type: BLOOD SPECIMENOrdering Facility: [facility] Address: [address] [place] [address] Performed By: #### 5 7021-8 ####[facility] LABCLIA [id number] [place] [address] MCV (RBC) [Entitic vol] 95.2 fL Normal 80.0-100.0 [facility] Comment on above: Order Comment: Speci men Type: BLOOD SPECIMENOrdering Facility: [facility] Address: [address] [place] [address] Performed By: #### 5 7021-8 ####[facility] LABCLIA [id number] [place] [address] Monocytes (Bld) [#/Vol] 0.45 10*3/uL Normal <0.87 [facility] Comment on above: Order Comment: Speci men Type: BLOOD SPECIMENOrdering Facility: [facility] Address: [address] [place] [address] Performed By: #### 5 7021-8 ####[facility] LABCLIA [id number] [place] [address] Monocytes/100 WBC (Bld) 8.9 % Normal [facility] Comment on above: Order Comment: Speci men Type: BLOOD SPECIMENOrdering Facility: [facility] Address: [address] [place] [address] Performed By: #### 5 7021-8 ####[facility] LABCLIA [id number] [place] [address] Neutrophils (Bld) [#/Vol] 3.61 10*3/uL Normal 1.45-7.50 [facility] Comment on above: Order Comment: Speci men Type: BLOOD SPECIMENOrdering Facility: [facility] Address: [address] [place] [address] Performed By: #### 5 7021-8 ####[facility] LABCLIA [id number] [place] [address] Neutrophils/100 WBC (Bld) 71.3 % Normal [facility] Comment on above: Order Comment: Speci men Type: BLOOD SPECIMENOrdering Facility: [facility] Address: [address] [address] Performed By: #### 5 7021-8 ####[facility] LABCLIA [id number] [place] [address] Nucleated RBC (Bld) [#/Vol] 10*3/uL Normal <0.01 [facility] Comment on above: Order Comment: Speci men Type: BLOOD SPECIMENOrdering Facility: [facility] Address: [address] [address] Performed By: #### 5 7021-8 ####[facility] LABCLIA [id number] [place] [address] Nucleated RBC/100 WBC (Bld) [Ratio] 0.0 /100 WBC Normal [facility] Comment on above: Order Comment: Speci men Type: BLOOD SPECIMENOrdering Facility: [facility] Address: [address] [place] [address] Performed By: #### 5 7021-8 ####[facility] LABCLIA [id number] [place] [address] Platelet mean volume (Bld) [Entitic vol] 10.4 fL Normal 9.0-12.7 [facility] Comment on above: Order Comment: Speci men Type: BLOOD SPECIMENOrdering Facility: [facility] Address: [address] [address] Performed By: #### 5 7021-8 ####[facility] LABCLIA [id number] [place] [address] Platelets (Bld) [#/Vol] 157 10*3/uL Normal 150-400 [facility] Comment on above: Order Comment: Speci men Type: BLOOD SPECIMENOrdering Facility: [facility] Address: [address] [place] [address] Performed By: #### 5 7021-8 ####[facility] LABCLIA [id number] [place] [address] RBC (Bld) [#/Vol] 3.96 10*6/uL Normal 3.90-5.20 [facility] Comment on above: Order Comment: Speci men Type: BLOOD SPECIMENOrdering Facility: [facility] Address: [address] [place] [address] Performed By: #### 5 7021-8 ####[facility] LABIA [id number] [place] [address] WBC (Bld) [#/Vol] 5.06 10*3/uL Normal 3.70-11.00 [facility] Comment on above: Order Comment: Speci men Type: BLOOD SPECIMENOrdering Facility: [facility] Address: [address] [place] [address] Performed By: #### 5 7021-8 ####[facility] LABIA [id number] [place] [address] CNOVSPon 11-15-2022 CNOVSP Normal [facility] Cancer Ag15-3 SerPl-aCncon 0 11-15-2022 Cancer Ag 15-3 Qn 17.5 U/mL Normal <26.0 [facility] Comment on above: Order Comment: Speci men Type: BLOOD SPECIMENOrdering Facility: [facility] Address: [address] [place] [address] Result Comment: The CA 15-3 test methodology used is the Electrochemiluminescence Immunoassay by [employer]. Results obtained with different methods or kits cannot be used interchangeably. Performed By: #### 6 875-9 ####[facility] LABCLIA [id number] [facility] [id number] [address] [place] Cancer Ag27-29 SerPl-aCncon 11-15-2022 Cancer Ag 27-29 Qn 13.0 [arb'U]/mL Normal <38.6 [facility] Comment on above: Order Comment: Speci men Type: BLOOD SPECIMENOrdering Facility: [facility] Address: [address] [place], [place] [address], [place] [address] Result Comment: The CA27.29 test was performed using the Siemens Portable Internetaur XP chemiluminometric immunoassay method. Results obtained with different assay methods or kits cannot be used interchangeably. Performed By: #### 1 7842-6 ####[facility] LABCLIA [id number] [facility] [id number] OF [facility] Comprehensive metabolic 2000 panelon 11-15-2022 Albumin [Mass/Vol] 4.2 g/dL 3.9 - 4.9 g/dL [facility] ALP [Catalytic activity/Vol] 100 U/L 34 - 123 U/L [facility] ALT [Catalytic activity/Vol] 14 U/L 7 - 38 U/L [facility] Anion gap [Moles/Vol] 12 mmol/L 9 - 18 mmol/L [facility] AST [Catalytic activity/Vol] 16 U/L 13 - 35 U/L [facility] Bilirubin [Mass/Vol] 0.5 mg/dL 0.2 - 1.3 mg/dL [facility] Calcium [Mass/Vol] 10.0 mg/dL 8.5 - 10.2 mg/dL [facility] Chloride [Moles/Vol] 104 mmol/L 97 - 105 mmol/L [facility] CO2 [Moles/Vol] 25 mmol/L 22 - 30 mmol/L [facility] Creatinine [Mass/Vol] 0.78 mg/dL 0.58 - 0.96 mg/dL [facility] Estimated Glomerular Filtration Rate 82 mL/min/1.73m >=60 mL/min/1.73m [facility] Glucose [Mass/Vol] 153 mg/dL High 74 - 99 mg/dL [facility] Potassium [Moles/Vol] 3.8 mmol/L 3.7 - 5.1 mmol/L [facility] Protein [Mass/Vol] 6.6 g/dL 6.3 - 8.0 g/dL [facility] Sodium [Moles/Vol] 141 mmol/L 136 - 144 mmol/L [facility] Urea nitrogen [Mass/Vol] 15 mg/dL 7 - 21 mg/dL [facility] Albumin [Mass/Vol] 4.2 g/dL Normal 3.9-4.9 [facility] Comment on above: Order Comment: Speci men Type: BLOOD SPECIMENOrdering Facility: [facility] Address: [address] [address] Performed By: #### 2 4323-8 ####[facility] LABCLIA [id number] [place] [address] ALP [Catalytic activity/Vol] 100 U/L Normal 34-123 [facility] Comment on above: Order Comment: Speci men Type: BLOOD SPECIMENOrdering Facility: [facility] Address: [address] [address] Performed By: #### 2 4323-8 ####[facility] LABCLIA [id number] [place] [address] ALT [Catalytic activity/Vol] 14 U/L Normal 7-38 [facility] Comment on above: Order Comment: Speci men Type: BLOOD SPECIMENOrdering Facility: [facility] Address: [address] [address] Performed By: #### 2 4323-8 ####[facility] LABCLIA [id number] [place] [address] Anion gap [Moles/Vol] 12 mmol/L Normal 9-18 [facility] Comment on above: Order Comment: Speci men Type: BLOOD SPECIMENOrdering Facility: [facility] Address: [address] [address] Performed By: #### 2 4323-8 ####[facility] LABCLIA [id number] [place] [address] AST [Catalytic activity/Vol] 16 U/L Normal 13-35 [facility] Comment on above: Order Comment: Speci men Type: BLOOD SPECIMENOrdering Facility: [facility] Address: [address] [place] [address] Performed By: #### 2 4323-8 ####[facility] LABCLIA [id number] [place] [address] Bilirubin [Mass/Vol] 0.5 mg/dL Normal 0.2-1.3 [facility] Comment on above: Order Comment: Speci men Type: BLOOD SPECIMENOrdering Facility: [facility] Address: [address] [address] Performed By: #### 2 4323-8 ####[facility] LABCLIA [id number] [place] [address] Calcium [Mass/Vol] 10.0 mg/dL Normal 8.5-10.2 [facility] Comment on above: Order Comment: Speci men Type: BLOOD SPECIMENOrdering Facility: [facility] Address: [address] [place] [address] Performed By: #### 2 4323-8 ####[facility] LABCLIA [id number] [place] [address] Chloride [Moles/Vol] 104 mmol/L Normal 97-105 [facility] Comment on above: Order Comment: Speci men Type: BLOOD SPECIMENOrdering Facility: [facility] Address: [address] [address] Performed By: #### 2 4323-8 ####[facility] LABCLIA [id number] [place] [address] CO2 [Moles/Vol] 25 mmol/L Normal 22-30 [facility] Comment on above: Order Comment: Speci men Type: BLOOD SPECIMENOrdering Facility: [facility] Address: [address] [address] Performed By: #### 2 4323-8 ####[facility] LABCLIA [id number] [place] [address] Creatinine [Mass/Vol] 0.78 mg/dL Normal 0.58-0.96 [facility] Comment on above: Order Comment: Speci men Type: BLOOD SPECIMENOrdering Facility: [facility] Address: [address] [address] Performed By: #### 2 4323-8 ####[facility] LABCLIA [id number] [place] [address] Creatinine and Glomerular filtration rate.predicted panel (S/P/Bld) 82 mL/min/1.73m??? Normal >=60 [facility] Comment on above: Order Comment: Speci men Type: BLOOD SPECIMENOrdering Facility: [facility] Address: [address] [place] [address] Result Comment: Polina mated Glomerular Filtration Rate (eGFR) is calculated using the 2020 CKD-EPI creatinine equation. This equation utilizes serum creatinine, sex, and age as parameters. The creatinine assay has traceable calibration to isotope dilution-mass spectrometry. Refer to KDIGO guidelines for clinical interpretation. In patients with unstable renal function, e.g. those with acute kidney injury, the eGFR may not accurately reflect actual GFR. Performed By: #### 2 4323-8 ####[facility] LABIA [id number] [place] [address] Glucose [Mass/Vol] 153 mg/dL High 74-99 [facility] Comment on above: Order Comment: Speci men Type: BLOOD SPECIMENOrdering Facility: [facility] Address: [address] [place] [address] Result Comment: The [place] Diabetes Association (ADA) provides guidance for cutoff values for fasting glucose and random glucose. The ADA defines fasting as no caloric intake for at least 8 hours. Fasting plasma glucose results between 100 to 125 mg/dL indicate increased risk for diabetes (prediabetes).Fasting plasma glucose results greater than or equal to 126 mg/dL meet the criteria for diagnosis of diabetes. In the absence of unequivocal hyperglycemia, results should be confirmed by repeat testing. In a patient with classic symptoms of hyperglycemia or hyperglycemic crisis, random plasma glucose results greater than or equal to 200 mg/dL meet the criteria for diagnosis of diabetes.Reference: Standards of Medical Care in Diabetes 2016, [place] Diabetes Association. Diabetes Care. 2016.39(Suppl 1). Performed By: #### 2 4323-8 ####[facility] LABCLIA [id number] [place] [address] Potassium [Moles/Vol] 3.8 mmol/L Normal 3.7-5.1 [facility] Comment on above: Order Comment: Speci men Type: BLOOD SPECIMENOrdering Facility: [facility] Address: [address] [place] [address] Performed By: #### 2 4323-8 ####[facility] LABCLIA [id number] [place] [address] Protein [Mass/Vol] 6.6 g/dL Normal 6.3-8.0 [facility] Comment on above: Order Comment: Speci men Type: BLOOD SPECIMENOrdering Facility: [facility] Address: [address] [place] [address] Performed By: #### 2 4323-8 ####[facility] LABCLIA [id number] [place] [address] Sodium [Moles/Vol] 141 mmol/L Normal 136-144 [facility] Comment on above: Order Comment: Speci men Type: BLOOD SPECIMENOrdering Facility: [facility] Address: [address] [place] [address] Performed By: #### 2 4323-8 ####[facility] LABCLIA [id number] [place] [address] Urea nitrogen [Mass/Vol] 15 mg/dL Normal 7-21 [facility] Comment on above: Order Comment: Speci men Type: BLOOD SPECIMENOrdering Facility: [facility] Address: [address] [place] [address] Performed By: #### 2 4323-8 ####[facility] LABCLIA [id number] [place] [address] PT - Progress Noteson 2022 PT - Progress Notes [id number] :127 Normal [facility] CNOVon 11-09-2022 CNOV Normal [facility] Ambulatory Visit Summaryon 0 11-08-2022 Ambulatory Visit Summary KIAH CORTES :1955 Visit Date:11/08/2022 Ambulatory Visit Instructions Your Diagnosis HTN (hypertension), benign Diabetes mellitus, type 2 Knee pain, right Breast cancer BMI 40.0-44.9, adult Your Care Team Attending Physician - Nate Bobby MD Primary Care Physician - Nate Bobby MD This Is Your Medications List Contact prescribing physician if questions or concerns abemaciclib (Verzenio 150 mg oral tablet) amlodipine (amLODIPine 10 mg Tab) anastrozole (anastrozole 1 mg Tab) atorvastatin (atorvastatin 40 mg Tab) carvedilol (carvedilol 25 mg Tab) celecoxib (CeleBREX 100 mg Cap) levothyroxine (levothyroxine 50 mcg (0.05 mg) Tab) loratadine (loratadine 10 mg Tab) metformin (metformin 1000 mg Tab) ropinirole (ropinirole 0.25 mg Tab) Procedures Performed Appendectomy, Arthroscopic knee operation, Lymphadenectomy, Reverse shoulder replacement, Shoulder, Tubal ligation. Discharge Vitals Temperature (Oral) 36.3 ?C Heart Rate (Peripheral) 64 Respiratory Rate 18 Blood Pressure 112/60 Height 152 cm Height 60 in Weight 97.1 kg Weight 213.62 lb BMI 42.03 What to do next Scheduled Follow-Up Appointments Tuesday 8:20 AM EST With: Where: [facility] Invalid Interpretation Code [address] [place] [address]- \.br\ Tuesday 11:00 AM EDT \.br\ With:\.br\ Where: [facility] Family Medicine Office/Clini c Noteon 11-08-2022 Family Medicine Office/Clinic Note HPI Staff Patient presents for 3 month follow up dm and htn Patient is here for follow up on hypertension. How often are you checking your blood pressure? occasionally if feels weird _ What are your average readings? n/a Yearly BMP: 07/05/22 _ Do you have any of the following symptoms? Foot Exam: due Eye Exam: September 2022 UTD Last A1C: 7.7% 07/23/22 Statin: atorvastatin 40mg covid: UTD FLu: cancer dr wants her to hold off for now while other testing is done questions/concerns: metformin rx when refilled showed bid and she's only been taking 1000mg a day she's been sticking with one History of Present Illness Patient is here for follow-up on her diabetes. Her last A1c was 7.7 and had her metformin increased to thousand twice daily. Patient did not take the medication despite having the conversation with her. Patient is complaining of right knee pain 8 out of 10. Patient states swinging her leg [id number] makes the pain worse. Patient is interested in aqua therapy. Review of Systems PHQ Score Initial Depression Screen Score: 1 Physical Exam Vitals & Measurements T: 36.3 ?C(Oral) HR: 64(Peripheral) RR: 18 BP: 112/60 SpO2: 98% HT: 60 in HT: 152 cm WT: 97.1 kg WT: 213.62 lb BMI: 42.03 General: alert, no acute distress ENMT: oral mucosa moist, Cardiovascular: regular rate and rhythm, normal peripheral perfusion Respiratory: Lungs CTA, respirations non labored Extremities: no deformity, no trauma, TTP on the R medial joint line Neurological: oriented x 4, LOC appropriate for age, CN II-XII intact, motor strength equal & normal bilaterally, speech normal Abdomen: Soft, Nontender, Non-distended, + BS Assessment/Plan 1. HTN (hypertension), benign (I10: Essential (primary) hypertension) - At goal. - Will monitor for the weird feeling. - Pt will need to take her Bps when feeling weird Ordered: Body Mass Index (BMI) documented 3008F Current tobacco non-user 1036F Depression Screening Negative 3352F Influenza immunization status assessed 1030F Most recent diastolic blood pressure <80 mm Hg 3078F Patient screen for fall risk: no falls in last year or 1 fall with no injury in last year 1101F Systolic BP <130 mm Hg (Most Recent) 3074F 2. Diabetes mellitus, type 2 (E11.9: Type 2 diabetes mellitus without complications) - Not controlled - Explained the increase in the metformin again. - Will do repeat labs in 3 months Ordered: Body Mass Index (BMI) documented 3008F Current tobacco non-user 1036F Depression Screening Negative 3352F Influenza immunization status assessed 1030F Most recent diastolic blood pressure <80 mm Hg 3078F Patient screen for fall risk: no falls in last year or 1 fall with no injury in last year 1101F Systolic BP <130 mm Hg (Most Recent) 3074F 3. Knee pain, right (M25.561: Pain in right knee) - Will do aqua therapy 4. Breast cancer (C50.919: Malignant neoplasm of unspecified site of unspecified female breast) - Seeing [facility] - On maintenance meds Ordered: Body Mass Index (BMI) documented 3008F Current tobacco non-user 1036F Depression Screening Negative 3352F Influenza immunization status assessed 1030F Most recent diastolic blood pressure <80 mm Hg 3078F Patient screen for fall risk: no falls in last year or 1 fall with no injury in last year 1101F Systolic BP <130 mm Hg (Most Recent) 3074F 5. BMI 40.0-44.9, adult (Z68.41: Body mass index [BMI] 40.0-44.9, adult) - BMI education given Ordered: Body Mass Index (BMI) documented 3008F Current tobacco non-user 1036F Depression Screening Negative 3352F Influenza immunization status assessed 1030F Most recent diastolic blood pressure <80 mm Hg 3078F Patient screen for fall risk: no falls in last year or 1 fall with no injury in last year 1101F Systolic BP <130 mm Hg (Most Recent) 3074F Follow-up No qualifying data available Patient Education BMI for Adults Acute Knee Pain, Adult Hypertension, Adult Problem List/Past Medical History Ongoing BMI 40.0-44.9, adult Breast cancer Diabetes mellitus, type 2 HTN (hypertension), benign Knee pain, right Mixed hyperlipidemia Non-smoker Osteoarthritis Osteopenia Right knee pain RLS (restless legs syndrome) Historical No qualifying data Procedure/Surgical History Appendectomy, Arthroscopic knee operation, Lymphadenectomy, Reverse shoulder replacement, Shoulder, Tubal ligation. Medications amLODIPine 10 mg Tab, See Instructions anastrozole 1 mg Tab, 1 mg= 1 tab(s), Oral, Daily atorvastatin 40 mg Tab, See Instructions carvedilol 25 mg Tab, See Instructions CeleBREX 100 mg Cap, 100 mg= 1 cap(s), Oral, BID, 1 refills levothyroxine 50 mcg (0.05 mg) Tab, See Instructions loratadine 10 mg Tab, 10 mg= 1 tab(s), Oral, Daily, 1 refills metformin 1000 mg Tab, See Instructions ropinirole 0.25 mg Tab, 0.25 mg= 1 tab(s), Oral, Daily, 1 refills Verzenio 150 mg oral tablet, 150 mg= 1 tab(s), Oral, BID Allerg (more content not included)... Normal [facility] Comment on above: Result Comment: Elec tronically Signed By: Mukund MCGOVERN, Nate Schrader.br\Date and Time Signed: 11/08/22 09:16 EDT Patient Educationon 11-09-19 Patient Education Cardiovascular Hypertension, Adult High blood pressure (hypertension) is when the force of blood pumping through the arteries is too strong. The arteries are the blood vessels that carry blood from the heart throughout the body. Hypertension forces the heart to work harder to pump blood and may cause arteries to become narrow or stiff. Untreated or uncontrolled hypertension can lead to a heart attack, heart failure, a stroke, kidney disease, and other problems. A blood pressure reading consists of a higher number over a lower number. Ideally, your blood pressure should be below 120/80. The first ( top ) number is called the systolic pressure. It is a measure of the pressure in your arteries as your heart beats. The second ( bottom ) number is called the diastolic pressure. It is a measure of the pressure in your arteries as the heart relaxes. What are the causes? The exact cause of this condition is not known. There are some conditions that result in high blood pressure. What increases the risk? Certain factors may make you more likely to develop high blood pressure. Some of these risk factors are under your control, including: ? Smoking. ? Not getting enough exercise or physical activity. ? Being overweight. ? Having too much fat, sugar, calories, or salt (sodium) in your diet. ? Drinking too much alcohol. Other risk factors include: ? Having a personal history of heart disease, diabetes, high cholesterol, or kidney disease. ? Stress. ? Having a family history of high blood pressure and high cholesterol. ? Having obstructive sleep apnea. ? Age. The risk increases with age. What are the signs or symptoms? High blood pressure may not cause symptoms. Very high blood pressure (hypertensive crisis) may cause: ? Headache. ? Fast or irregular heartbeats (palpitations). ? Shortness of breath. ? Nosebleed. ? Nausea and vomiting. ? Vision changes. ? Severe chest pain, dizziness, and seizures. How is this diagnosed? This condition is diagnosed by measuring your blood pressure while you are seated, with your arm resting on a flat surface, your legs uncrossed, and your feet flat on the floor. The cuff of the blood pressure monitor will be placed directly against the skin of your upper arm at the level of your heart. Blood pressure should be measured at least twice using the same arm. Certain conditions can cause a difference in blood pressure between your right and left arms. If you have a high blood pressure reading during one visit or you have normal blood pressure with other risk factors, you may be asked to: ? Return on a different day to have your blood pressure checked again. ? Monitor your blood pressure at home for 1 week or longer. If you are diagnosed with hypertension, you may have other blood or imaging tests to help your health care provider understand your overall risk for other conditions. How is this treated? This condition is treated by making healthy lifestyle changes, such as eating healthy foods, exercising more, and reducing your alcohol intake. You may be referred for counseling on a healthy diet and physical activity. Your health care provider may prescribe medicine if lifestyle changes are not enough to get your blood pressure under control and if: ? Your systolic blood pressure is above 130. ? Your diastolic blood pressure is above 80. Your personal target blood pressure may vary depending on your medical conditions, your age, and other factors. Follow these instructions at home: Eating and drinking ? Eat a diet that is high in fiber and potassium, and low in sodium, added sugar, and fat. An example of this eating plan is called the DASH diet. DASH stands for Dietary Approaches to Stop Hypertension. To eat this way: ? Eat plenty of fresh fruits and vegetables. Try to fill one half of your plate at each meal with fruits and vegetables. ? Eat whole grains, such as whole-wheat pasta, brown rice, or whole-grain bread. Fill about one fourth of your plate with whole grains. ? Eat or drink low-fat dairy products, such as skim milk or low-fat yogurt. ? Avoid fatty cuts of meat, processed or cured meats, and poultry with skin. Fill about one fourth of your plate with lean proteins, such as fish, chicken without skin, beans, eggs, or tofu. ? Avoid pre-made and processed foods. These tend to be higher in sodium, added sugar, and fat. ? Reduce your daily sodium intake. Many people with hypertension should eat less than 1,500 mg of sodium a day. ? Do not drink alcohol if: ? Your health care provider tells you not to drink. ? You are , may be , or are planning to become . ? If you drink alcohol: ? Limit how much you have to: ? 0?1 drink a day for women. ? 0?2 drinks a day for men. ? Know how much alcohol is in your drink. In the [place] one drink equals one 12 oz bottle of beer (355 mL), one 5 oz glass of wine (148 mL), or one 1? oz glass (more content not included)... Normal [facility] Consultation Noteon 10-28-19 Consultation Note [id number] D:127 Normal [facility] CNSWon 10-22-2022 CNSW Normal [facility] CBC W Auto Differential pane l (Bld)on 10-18-2022 Basophils (Bld) [#/Vol] <0.11 k/uL [facility] Basophils/100 WBC (Bld) 0.3 % [facility] Differential cell count method Nom (Bld) Auto [facility] Eosinophils (Bld) [#/Vol] 0.03 10*3/uL <0.46 k/uL [facility] Eosinophils/100 WBC (Bld) 0.8 % [facility] Erythrocyte distribution width (RBC) [Ratio] 15.0 % 11.5 - 15.0 % [facility] Hematocrit (Bld) [Volume fraction] 36.2 % 36.0 - 46.0 % [facility] Hemoglobin (Bld) [Mass/Vol] 12.3 g/dL 11.5 - 15.5 g/dL [facility] Immature granulocytes (Bld) [#/Vol] <0.10 k/uL [facility] Immature granulocytes/100 WBC (Bld) 0.6 % [facility] Lymphocytes (Bld) [#/Vol] 0.94 10*3/uL Low 1.00 - 4.00 k/uL [facility] Lymphocytes/100 WBC (Bld) 26.2 % [facility] MCH (RBC) [Entitic mass] 32.3 pg 26.0 - 34.[address] [facility] MCHC (RBC) [Mass/Vol] 34.0 g/dL 30.5 - 36.0 g/dL [facility] MCV (RBC) [Entitic vol] 95.0 fL 80.0 - 100.[address] [facility] Monocytes (Bld) [#/Vol] 0.43 10*3/uL <0.87 k/uL [facility] Monocytes/100 WBC (Bld) 12.0 % [facility] Neutrophils (Bld) [#/Vol] 2.16 10*3/uL 1.45 - 7.50 k/uL [facility] Neutrophils/100 WBC (Bld) 60.1 % [facility] Nucleated RBC (Bld) [#/Vol] <0.01 k/uL [facility] Nucleated RBC/100 WBC (Bld) [Ratio] 0.0 /[address] [facility] Platelet mean volume (Bld) [Entitic vol] 9.3 fL 9.0 - 12.[address] [facility] Platelets (Bld) [#/Vol] 210 10*3/uL 150 - 400 k/uL [facility] RBC (Bld) [#/Vol] 3.81 10*6/uL Low 3.90 - 5.20 m/uL [facility] WBC (Bld) [#/Vol] 3.59 10*3/uL Low 3.70 - 11.00 k/u L [facility] Basophils (Bld) [#/Vol] 10*3/uL Normal <0.11 [facility] Comment on above: Order Comment: Speci men Type: BLOOD SPECIMENOrdering Facility: [facility] Address: [address] [address] Performed By: #### 5 7021-8 ####[facility] LABCLIA [id number] [place] [address] Basophils/100 WBC (Bld) 0.3 % Normal [facility] Comment on above: Order Comment: Speci men Type: BLOOD SPECIMENOrdering Facility: [facility] Address: [address] [place] [address] Performed By: #### 5 7021-8 ####[facility] LABCLIA [id number] [place] [address] Differential cell count method Nom (Bld) Auto Normal [facility] Comment on above: Order Comment: Speci men Type: BLOOD SPECIMENOrdering Facility: [facility] Address: [address] [place] [address] Performed By: #### 5 7021-8 ####[facility] LABCLIA [id number] [place] [address] Eosinophils (Bld) [#/Vol] 0.03 10*3/uL Normal <0.46 [facility] Comment on above: Order Comment: Speci men Type: BLOOD SPECIMENOrdering Facility: [facility] Address: [address] [place] [address] Performed By: #### 5 7021-8 ####[facility] LABCLIA [id number] [place] [address] Eosinophils/100 WBC (Bld) 0.8 % Normal [facility] Comment on above: Order Comment: Speci men Type: BLOOD SPECIMENOrdering Facility: [facility] Address: [address] [place] [address] Performed By: #### 5 7021-8 ####[facility] LABCLIA [id number] [place] [address] Erythrocyte distribution width (RBC) [Ratio] 15.0 % Normal 11.5-15.0 [facility] Comment on above: Order Comment: Speci men Type: BLOOD SPECIMENOrdering Facility: [facility] Address: [address] [place] [address] Performed By: #### 5 7021-8 ####[facility] LABCLIA [id number] [place] [address] Hematocrit (Bld) [Volume fraction] 36.2 % Normal 36.0-46.0 [facility] Comment on above: Order Comment: Speci men Type: BLOOD SPECIMENOrdering Facility: [facility] Address: [address] [address] Performed By: #### 5 7021-8 ####[facility] LABCLIA [id number] [place] [address] Hemoglobin (Bld) [Mass/Vol] 12.3 g/dL Normal 11.5-15.5 [facility] Comment on above: Order Comment: Speci men Type: BLOOD SPECIMENOrdering Facility: [facility] Address: [address] [address] Performed By: #### 5 7021-8 ####[facility] LABCLIA [id number] [place] [address] Immature granulocytes (Bld) [#/Vol] 10*3/uL Normal <0.10 [facility] Comment on above: Order Comment: Speci men Type: BLOOD SPECIMENOrdering Facility: [facility] Address: [address] [address] Performed By: #### 5 7021-8 ####[facility] LABCLIA [id number] [place] [address] Immature granulocytes/100 WBC (Bld) 0.6 % Normal [facility] Comment on above: Order Comment: Speci men Type: BLOOD SPECIMENOrdering Facility: [facility] Address: [address] [address] Performed By: #### 5 7021-8 ####[facility] LABCLIA [id number] [place] [address] Lymphocytes (Bld) [#/Vol] 0.94 10*3/uL Low 1.00-4.00 [facility] Comment on above: Order Comment: Speci men Type: BLOOD SPECIMENOrdering Facility: [facility] Address: [address] [place] [address] Performed By: #### 5 7021-8 ####[facility] LABCLIA [id number] [place] [address] Lymphocytes/100 WBC (Bld) 26.2 % Normal [facility] Comment on above: Order Comment: Speci men Type: BLOOD SPECIMENOrdering Facility: [facility] Address: [address] [place] [address] Performed By: #### 5 7021-8 ####[facility] LABCLIA [id number] [place] [address] MCH (RBC) [Entitic mass] 32.3 pg Normal 26.0-34.0 [facility] Comment on above: Order Comment: Speci men Type: BLOOD SPECIMENOrdering Facility: [facility] Address: [address] [place] [address] Performed By: #### 5 7021-8 ####[facility] LABIA [id number] [place] [address] MCHC (RBC) [Mass/Vol] 34.0 g/dL Normal 30.5-36.0 [facility] Comment on above: Order Comment: Speci men Type: BLOOD SPECIMENOrdering Facility: [facility] Address: [address] [place] [address] Performed By: #### 5 7021-8 ####[facility] LABCLIA [id number] [place] [address] MCV (RBC) [Entitic vol] 95.0 fL Normal 80.0-100.0 [facility] Comment on above: Order Comment: Speci men Type: BLOOD SPECIMENOrdering Facility: [facility] Address: [address] [place] [address] Performed By: #### 5 7021-8 ####[facility] LABIA [id number] [place] [address] Monocytes (Bld) [#/Vol] 0.43 10*3/uL Normal <0.87 [facility] Comment on above: Order Comment: Speci men Type: BLOOD SPECIMENOrdering Facility: [facility] Address: [address] [address] Performed By: #### 5 7021-8 ####[facility] LABCLIA [id number] [place] [address] Monocytes/100 WBC (Bld) 12.0 % Normal [facility] Comment on above: Order Comment: Speci men Type: BLOOD SPECIMENOrdering Facility: [facility] Address: [address] [place] [address] Performed By: #### 5 7021-8 ####[facility] LABCLIA [id number] [place] [address] Neutrophils (Bld) [#/Vol] 2.16 10*3/uL Normal 1.45-7.50 [facility] Comment on above: Order Comment: Speci men Type: BLOOD SPECIMENOrdering Facility: [facility] Address: [address] [place] [address] Performed By: #### 5 7021-8 ####[facility] LABCLIA [id number] [place] [address] Neutrophils/100 WBC (Bld) 60.1 % Normal [facility] Comment on above: Order Comment: Speci men Type: BLOOD SPECIMENOrdering Facility: [facility] Address: [address] [place] [address] Performed By: #### 5 7021-8 ####[facility] LABCLIA [id number] [place] [address] Nucleated RBC (Bld) [#/Vol] 10*3/uL Normal <0.01 [facility] Comment on above: Order Comment: Speci men Type: BLOOD SPECIMENOrdering Facility: [facility] Address: [address] [place] [address] Performed By: #### 5 7021-8 ####[facility] LABCLIA [id number] [place] [address] Nucleated RBC/100 WBC (Bld) [Ratio] 0.0 /100 WBC Normal [facility] Comment on above: Order Comment: Speci men Type: BLOOD SPECIMENOrdering Facility: [facility] Address: [address] [place] [address] Performed By: #### 5 7021-8 ####[facility] LABCLIA [id number] [place] [address] Platelet mean volume (Bld) [Entitic vol] 9.3 fL Normal 9.0-12.7 [facility] Comment on above: Order Comment: Speci men Type: BLOOD SPECIMENOrdering Facility: [facility] Address: [address] [place] [address] Performed By: #### 5 7021-8 ####[facility] LABCLIA [id number] [place] [address] Platelets (Bld) [#/Vol] 210 10*3/uL Normal 150-400 [facility] Comment on above: Order Comment: Speci men Type: BLOOD SPECIMENOrdering Facility: [facility] Address: [address] [place] [address] Performed By: #### 5 7021-8 ####[facility] LABCLIA [id number] [place] [address] RBC (Bld) [#/Vol] 3.81 10*6/uL Low 3.90-5.20 [facility] Comment on above: Order Comment: Speci men Type: BLOOD SPECIMENOrdering Facility: [facility] Address: [address] [place] [address] Performed By: #### 5 7021-8 ####[facility] LABIA [id number] [place] [address] WBC (Bld) [#/Vol] 3.59 10*3/uL Low 3.70-11.00 [facility] Comment on above: Order Comment: Speci men Type: BLOOD SPECIMENOrdering Facility: [facility] Address: [address] [place] [address] [place] [address] Performed By: #### 5 7021-8 ####[facility] LABIA [id number] [place] [address] CNOVSPon 10-18-2022 CNOVSP Normal [facility] metabolic 2000 panelon 10-18-2022 Albumin [Mass/Vol] 4.3 g/dL 3.9 - 4.9 g/dL [facility] ALP [Catalytic activity/Vol] 101 U/L 34 - 123 U/L [facility] ALT [Catalytic activity/Vol] 18 U/L 7 - 38 U/L [facility] Anion gap [Moles/Vol] 10 mmol/L 9 - 18 mmol/L [facility] AST [Catalytic activity/Vol] 23 U/L 13 - 35 U/L [facility] Bilirubin [Mass/Vol] 0.4 mg/dL 0.2 - 1.3 mg/dL [facility] Calcium [Mass/Vol] 9.6 mg/dL 8.5 - 10.2 mg/dL [facility] Chloride [Moles/Vol] 108 mmol/L High 97 - 105 mmol/L [facility] CO2 [Moles/Vol] 22 mmol/L 22 - 30 mmol/L [facility] Creatinine [Mass/Vol] 0.84 mg/dL 0.58 - 0.96 mg/dL [facility] Estimated Glomerular Filtration Rate 75 mL/min/1.73m >=60 mL/min/1.73m [facility] Glucose [Mass/Vol] 102 mg/dL High 74 - 99 mg/dL [facility] Potassium [Moles/Vol] 3.9 mmol/L 3.7 - 5.1 mmol/L [facility] Protein [Mass/Vol] 6.7 g/dL 6.3 - 8.0 g/dL [facility] Sodium [Moles/Vol] 140 mmol/L 136 - 144 mmol/L [facility] Urea nitrogen [Mass/Vol] 22 mg/dL High 7 - 21 mg/dL [facility] Albumin [Mass/Vol] 4.3 g/dL Normal 3.9-4.9 [facility] Comment on above: Order Comment: Speci men Type: BLOOD SPECIMENOrdering Facility: [facility] Address: [address] [address] Performed By: #### 2 4323-8 ####[facility] LABCLIA [id number] [place] [address] ALP [Catalytic activity/Vol] 101 U/L Normal 34-123 [facility] Comment on above: Order Comment: Speci men Type: BLOOD SPECIMENOrdering Facility: [facility] Address: [address] [address] Performed By: #### 2 4323-8 ####[facility] LABCLIA [id number] [place] [address] ALT [Catalytic activity/Vol] 18 U/L Normal 7-38 [facility] Comment on above: Order Comment: Speci men Type: BLOOD SPECIMENOrdering Facility: [facility] Address: [address] [address] Performed By: #### 2 4323-8 ####[facility] LABCLIA [id number] [place] [address] Anion gap [Moles/Vol] 10 mmol/L Normal 9-18 [facility] Comment on above: Order Comment: Speci men Type: BLOOD SPECIMENOrdering Facility: [facility] Address: [address] [address] Performed By: #### 2 4323-8 ####[facility] LABCLIA [id number] [place] [address] AST [Catalytic activity/Vol] 23 U/L Normal 13-35 [facility] Comment on above: Order Comment: Speci men Type: BLOOD SPECIMENOrdering Facility: [facility] Address: [address] [place] [address] Performed By: #### 2 4323-8 ####[facility] LABCLIA [id number] [place] [address] Bilirubin [Mass/Vol] 0.4 mg/dL Normal 0.2-1.3 [facility] Comment on above: Order Comment: Speci men Type: BLOOD SPECIMENOrdering Facility: [facility] Address: [address] [place] [address] Performed By: #### 2 4323-8 ####[facility] LABCLIA [id number] [place] [address] Calcium [Mass/Vol] 9.6 mg/dL Normal 8.5-10.2 [facility] Comment on above: Order Comment: Speci men Type: BLOOD SPECIMENOrdering Facility: [facility] Address: [address] [place] [address] Performed By: #### 2 4323-8 ####[facility] LABCLIA [id number] [place] [address] Chloride [Moles/Vol] 108 mmol/L High 97-105 [facility] Comment on above: Order Comment: Speci men Type: BLOOD SPECIMENOrdering Facility: [facility] Address: [address] [place] [address] Performed By: #### 2 4323-8 ####[facility] LABCLIA [id number] [place] [address] CO2 [Moles/Vol] 22 mmol/L Normal 22-30 [facility] Comment on above: Order Comment: Speci men Type: BLOOD SPECIMENOrdering Facility: [facility] Address: [address] [place] [address] Performed By: #### 2 4323-8 ####[facility] LABCLIA [id number] [place] [address] Creatinine [Mass/Vol] 0.84 mg/dL Normal 0.58-0.96 [facility] Comment on above: Order Comment: Speci men Type: BLOOD SPECIMENOrdering Facility: [facility] Address: [address] [place] [address] Performed By: #### 2 4323-8 ####[facility] LABCLIA [id number] [place] [address] Creatinine and Glomerular filtration rate.predicted panel (S/P/Bld) 75 mL/min/1.73m??? Normal >=60 [facility] Comment on above: Order Comment: Satish schroeder Type: BLOOD SPECIMENOrdering Facility: [facility] Address: [address] [place] [address] Result Comment: Polina mated Glomerular Filtration Rate (eGFR) is calculated using the 2020 CKD-EPI creatinine equation. This equation utilizes serum creatinine, sex, and age as parameters. The creatinine assay has traceable calibration to isotope dilution-mass spectrometry. Refer to KDIGO guidelines for clinical interpretation. In patients with unstable renal function, e.g. those with acute kidney injury, the eGFR may not accurately reflect actual GFR. Performed By: #### 2 4323-8 ####[facility] LABCLIA [id number] [place] [address] Glucose [Mass/Vol] 102 mg/dL High 74-99 [facility] Comment on above: Order Comment: Satish schroeder Type: BLOOD SPECIMENOrdering Facility: [facility] Address: [address] [place] [address] Result Comment: The [place] Diabetes [employer] (ADA) provides guidance for cutoff values for fasting glucose and random glucose. The ADA defines fasting as no caloric intake for at least 8 hours. Fasting plasma glucose results between 100 to 125 mg/dL indicate increased risk for diabetes (prediabetes).Fasting plasma glucose results greater than or equal to 126 mg/dL meet the criteria for diagnosis of diabetes. In the absence of unequivocal hyperglycemia, results should be confirmed by repeat testing. In a patient with classic symptoms of hyperglycemia or hyperglycemic crisis, random plasma glucose results greater than or equal to 200 mg/dL meet the criteria for diagnosis of diabetes.Reference: Standards of Medical Care in Diabetes 2016, [place] [employer]. Diabetes Care. 2016.39(Suppl 1). Performed By: #### 2 4323-8 ####[facility] LABCLIA [id number] [place] [address] Potassium [Moles/Vol] 3.9 mmol/L Normal 3.7-5.1 [facility] Comment on above: Order Comment: Speci men Type: BLOOD SPECIMENOrdering Facility: [facility] Address: [address] [place] [address] Performed By: #### 2 4323-8 ####[facility] LABCLIA [id number] [place] [address] Protein [Mass/Vol] 6.7 g/dL Normal 6.3-8.0 [facility] Comment on above: Order Comment: Speci men Type: BLOOD SPECIMENOrdering Facility: [facility] Address: [address] [place] [address] Performed By: #### 2 4323-8 ####[facility] LABCLIA [id number] [place] [address] Sodium [Moles/Vol] 140 mmol/L Normal 136-144 [facility] Comment on above: Order Comment: Speci men Type: BLOOD SPECIMENOrdering Facility: [facility] Address: [address] [place] [address] Performed By: #### 2 4323-8 ####[facility] LABCLIA [id number] [place] [address] Urea nitrogen [Mass/Vol] 22 mg/dL High 7-21 [facility] Comment on above: Order Comment: Speci men Type: BLOOD SPECIMENOrdering Facility: [facility] Address: [address] [place] [address] Performed By: #### 2 4323-8 ####[facility] LABCLIA [id number] [place] [address] CNOVon 10-07-2022 CNOV Normal [facility] RAMOS DIAG W ANABEL BILon 2022 RAMOS DIAG W ANABEL AUSTEN * * *Final Report* * * DATE OF EXAM: Oct 07 2022 9:31AM [facility] 0627 - [facility] DIAG W ANABEL AUSTEN / PROCEDURE REASON: multiple diagnoses * * * * Physician Interpretation * * * * RESULT: #[id number] - RAMOS DIAG W ANABEL AUSTEN BILATERAL DIGITAL DIAGNOSTIC MAMMOGRAM TOMOSYNTHESIS WITH CAD: 10/07/2022 HISTORY: F/u right breast post op /The patient is also due for her annual mammogram. RESULT: TECHNIQUE: The study was acquired using full field digital technology and interpreted from soft copy. Digital Breast Tomosynthesis (DBT) images were obtained and used to assist in the interpretation of this examination. Current study was also evaluated with a Computer Aided Detection (CAD). Comparison is made to exams dated: 03/25/2022 specimen - [facility], 09/30/2021 mammogram, 11/12/2021 mammogram - [facility], and 12/01/2021 mammogram - [facility]. There are scattered fibroglandular elements in both breasts. The patient is status post lumpectomy right breast in the upper outer quadrant. There are post-op and radiation changes in the right breast. No significant masses, calcifications, or other findings are seen in either breast. IMPRESSION: BENIGN FINDING There is no mammographic evidence of malignancy. A 1 year screening mammogram is recommended. Slime Aponte M.D. pt/elva:10/07/2022 09:49:49 Perioperative Assistant(s): Gertrudis Rich, [facility] Mammogram BI-RADS: 2 Benign finding Multiple national specialty organizations have released breast cancer screening guidelines for women at average risk for developing breast cancer - guidelines that are based on both evidence and opinion, yet differ on when to start and how often to screen for breast cancer. With representation from Breast Imaging, Internal Medicine, Women's Health, Family Medicine, and Medical/Surgical Oncology, the [facility] has carefully reviewed the data and reached the following consensus: 1) All women should engage in shared decision-making with their providers to decide when to start and how often to screen; 2) All women should have the opportunity to start screening mammography at age 40; 3) For women ages 45-55, we recommend annual screening mammograms; 4) For women ages 55 and over, we support both the transition from an annual to a biennial interval if this aligns more with patient's values and preferences, or continuation with annual screening; 5) All women should discuss with their providers when to stop screening mammograms. Business Technology Professor: Elva Transcribe Date/Time: Oct 07 2022 9:06A Dictated by : SLIME APONTE MD This examination was interpreted and the report reviewed and electronically signed by: SLIME APONTE MD on Oct 07 2022 9:49AM EST [id number] [facility] GULSHAN Van ANABEL BILATERALon 10-07-[address] [facility] Consultation Noteon 10-07-19 Consultation Note [id number] D:127 Normal [facility] CNOVSPon 10-05-2022 CNOVSP Normal [facility] CNPNon 10-04-2022 CNPN Normal [facility] CNPNon 09-30-2022 CNPN Normal [facility] CNPNon 09-28-2022 CNPN Normal [facility] CNCNPATEDon 09-22-2022 CNCNPATED Normal [facility] CNPNon 09-22-2022 CNPN Normal [facility] CNPNon 09-21-2022 CNPN Normal [facility] Consultation Noteon 09-22-19 Consultation Note [id number] D:127 Normal [facility] CBC W Auto Differential pane l (Bld)on 09-20-2022 Basophils (Bld) [#/Vol] 10*3/uL Normal <0.11 [facility] Comment on above: Order Comment: Speci men Type: BLOOD SPECIMENOrdering Facility: [facility] Address: [address] [address] Performed By: #### 5 7021-8 ####[facility] LABCLIA [id number] [place] [address] Basophils/100 WBC (Bld) 0.4 % Normal [facility] Comment on above: Order Comment: Speci men Type: BLOOD SPECIMENOrdering Facility: [facility] Address: [address] [address] Performed By: #### 5 7021-8 ####[facility] LABCLIA [id number] [place] [address] Differential cell count method Nom (Bld) Auto Normal [facility] Comment on above: Order Comment: Speci men Type: BLOOD SPECIMENOrdering Facility: [facility] Address: [address] [place] [address] Performed By: #### 5 7021-8 ####[facility] LABCLIA [id number] [place] [address] Eosinophils (Bld) [#/Vol] 0.09 10*3/uL Normal <0.46 [facility] Comment on above: Order Comment: Speci men Type: BLOOD SPECIMENOrdering Facility: [facility] Address: [address] [place] [address] Performed By: #### 5 7021-8 ####[facility] LABIA [id number] [place] [address] Eosinophils/100 WBC (Bld) 1.8 % Normal [facility] Comment on above: Order Comment: Speci men Type: BLOOD SPECIMENOrdering Facility: [facility] Address: [address] [place] [address] Performed By: #### 5 7021-8 ####[facility] LABCLIA [id number] [place] [address] Erythrocyte distribution width (RBC) [Ratio] 14.4 % Normal 11.5-15.0 [facility] Comment on above: Order Comment: Speci men Type: BLOOD SPECIMENOrdering Facility: [facility] Address: [address] [place] [address] Performed By: #### 5 7021-8 ####[facility] LABIA [id number] [place] [address] Hematocrit (Bld) [Volume fraction] 37.2 % Normal 36.0-46.0 [facility] Comment on above: Order Comment: Speci men Type: BLOOD SPECIMENOrdering Facility: [facility] Address: [address] [address] Performed By: #### 5 7021-8 ####[facility] LABCLIA [id number] [place] [address] Hemoglobin (Bld) [Mass/Vol] 12.4 g/dL Normal 11.5-15.5 [facility] Comment on above: Order Comment: Speci men Type: BLOOD SPECIMENOrdering Facility: [facility] Address: [address] [place] [address] Performed By: #### 5 7021-8 ####[facility] LABCLIA [id number] [place] [address] Immature granulocytes (Bld) [#/Vol] 10*3/uL Normal <0.10 [facility] Comment on above: Order Comment: Speci men Type: BLOOD SPECIMENOrdering Facility: [facility] Address: [address] [place] [address] Performed By: #### 5 7021-8 ####[facility] LABCLIA [id number] [place] [address] Immature granulocytes/100 WBC (Bld) 0.2 % Normal [facility] Comment on above: Order Comment: Speci men Type: BLOOD SPECIMENOrdering Facility: [facility] Address: [address] [place] [address] Performed By: #### 5 7021-8 ####[facility] LABCLIA [id number] [place] [address] Lymphocytes (Bld) [#/Vol] 0.93 10*3/uL Low 1.00-4.00 [facility] Comment on above: Order Comment: Speci men Type: BLOOD SPECIMENOrdering Facility: [facility] Address: [address] [place] [address] Performed By: #### 5 7021-8 ####[facility] LABCLIA [id number] [place] [address] Lymphocytes/100 WBC (Bld) 18.7 % Normal [facility] Comment on above: Order Comment: Speci men Type: BLOOD SPECIMENOrdering Facility: [facility] Address: [address] [place] [address] Performed By: #### 5 7021-8 ####[facility] LABCLIA [id number] [place] [address] MCH (RBC) [Entitic mass] 31.7 pg Normal 26.0-34.0 [facility] Comment on above: Order Comment: Speci men Type: BLOOD SPECIMENOrdering Facility: [facility] Address: [address] [place] [address] Performed By: #### 5 7021-8 ####[facility] LABCLIA [id number] [place] [address] MCHC (RBC) [Mass/Vol] 33.3 g/dL Normal 30.5-36.0 [facility] Comment on above: Order Comment: Speci men Type: BLOOD SPECIMENOrdering Facility: [facility] Address: [address] [place] [address] Performed By: #### 5 7021-8 ####[facility] LABCLIA [id number] [place] [address] MCV (RBC) [Entitic vol] 95.1 fL Normal 80.0-100.0 [facility] Comment on above: Order Comment: Speci men Type: BLOOD SPECIMENOrdering Facility: [facility] Address: [address] [place] [address] Performed By: #### 5 7021-8 ####[facility] LABCLIA [id number] [place] [address] Monocytes (Bld) [#/Vol] 0.52 10*3/uL Normal <0.87 [facility] Comment on above: Order Comment: Speci men Type: BLOOD SPECIMENOrdering Facility: [facility] Address: [address] [place] [address] Performed By: #### 5 7021-8 ####[facility] LABCLIA [id number] [place] [address] Monocytes/100 WBC (Bld) 10.4 % Normal [facility] Comment on above: Order Comment: Speci men Type: BLOOD SPECIMENOrdering Facility: [facility] Address: [address] [place] [address] Performed By: #### 5 7021-8 ####[facility] LABCLIA [id number] [place] [address] Neutrophils (Bld) [#/Vol] 3.41 10*3/uL Normal 1.45-7.50 [facility] Comment on above: Order Comment: Speci men Type: BLOOD SPECIMENOrdering Facility: [facility] Address: [address] [place] [address] Performed By: #### 5 7021-8 ####[facility] LABCLIA [id number] [place] [address] Neutrophils/100 WBC (Bld) 68.5 % Normal [facility] Comment on above: Order Comment: Speci men Type: BLOOD SPECIMENOrdering Facility: [facility] Address: [address] [place] [address] Performed By: #### 5 7021-8 ####[facility] LABCLIA [id number] [place] [address] Nucleated RBC (Bld) [#/Vol] 10*3/uL Normal <0.01 [facility] Comment on above: Order Comment: Speci men Type: BLOOD SPECIMENOrdering Facility: [facility] Address: [address] [place] [address] Performed By: #### 5 7021-8 ####[facility] LABCLIA [id number] [place] [address] Nucleated RBC/100 WBC (Bld) [Ratio] 0.0 /100 WBC Normal [facility] Comment on above: Order Comment: Speci men Type: BLOOD SPECIMENOrdering Facility: [facility] Address: [address] [place] [address] Performed By: #### 5 7021-8 ####[facility] LABCLIA [id number] [place] [address] Platelet mean volume (Bld) [Entitic vol] 10.0 fL Normal 9.0-12.7 [facility] Comment on above: Order Comment: Speci men Type: BLOOD SPECIMENOrdering Facility: [facility] Address: [address] [place] [address] Performed By: #### 5 7021-8 ####[facility] LABCLIA [id number] [place] [address] Platelets (Bld) [#/Vol] 167 10*3/uL Normal 150-400 [facility] Comment on above: Order Comment: Speci men Type: BLOOD SPECIMENOrdering Facility: [facility] Address: [address] [place] [address] Performed By: #### 5 7021-8 ####[facility] LABIA [id number] [place] [address] RBC (Bld) [#/Vol] 3.91 10*6/uL Normal 3.90-5.20 [facility] Comment on above: Order Comment: Speci men Type: BLOOD SPECIMENOrdering Facility: [facility] Address: [address] [place] [address] Performed By: #### 5 7021-8 ####[facility] LABIA [id number] [place] [address] WBC (Bld) [#/Vol] 4.98 10*3/uL Normal 3.70-11.00 [facility] Comment on above: Order Comment: Speci men Type: BLOOD SPECIMENOrdering Facility: [facility] Address: [address] [place] [address] Performed By: #### 5 7021-8 ####[facility] LABCLIA [id number] [place] [address] CNOVSPon 09-20-2022 CNOVSP Normal [facility] CNPNon 09-20-2022 CNPN Normal [facility] metabolic 2000 panelon 09-20-2022 Albumin [Mass/Vol] 4.2 g/dL Normal 3.9-4.9 [facility] Comment on above: Order Comment: Speci men Type: BLOOD SPECIMENOrdering Facility: [facility] Address: [address] [address] Performed By: #### 2 4323-8 ####[facility] LABCLIA [id number] [place] [address] ALP [Catalytic activity/Vol] 101 U/L Normal 34-123 [facility] Comment on above: Order Comment: Speci men Type: BLOOD SPECIMENOrdering Facility: [facility] Address: [address] [address] Performed By: #### 2 4323-8 ####[facility] LABCLIA [id number] [place] [address] ALT [Catalytic activity/Vol] 15 U/L Normal 7-38 [facility] Comment on above: Order Comment: Speci men Type: BLOOD SPECIMENOrdering Facility: [facility] Address: [address] [place] [address] Performed By: #### 2 4323-8 ####[facility] LABCLIA [id number] [place] [address] Anion gap [Moles/Vol] 6 mmol/L Low 9-18 [facility] Comment on above: Order Comment: Speci men Type: BLOOD SPECIMENOrdering Facility: [facility] Address: [address] [address] Performed By: #### 2 4323-8 ####[facility] LABCLIA [id number] [place] [address] AST [Catalytic activity/Vol] 18 U/L Normal 13-35 [facility] Comment on above: Order Comment: Speci men Type: BLOOD SPECIMENOrdering Facility: [facility] Address: [address] [address] Performed By: #### 2 4323-8 ####[facility] LABCLIA [id number] [place] [address] Bilirubin [Mass/Vol] 0.4 mg/dL Normal 0.2-1.3 [facility] Comment on above: Order Comment: Speci men Type: BLOOD SPECIMENOrdering Facility: [facility] Address: [address] [place] [address] Performed By: #### 2 4323-8 ####[facility] LABCLIA [id number] [place] [address] Calcium [Mass/Vol] 10.0 mg/dL Normal 8.5-10.2 [facility] Comment on above: Order Comment: Speci men Type: BLOOD SPECIMENOrdering Facility: [facility] Address: [address] [place] [address] Performed By: #### 2 4323-8 ####[facility] LABCLIA [id number] [place] [address] Chloride [Moles/Vol] 107 mmol/L High 97-105 [facility] Comment on above: Order Comment: Speci men Type: BLOOD SPECIMENOrdering Facility: [facility] Address: [address] [address] Performed By: #### 2 4323-8 ####[facility] LABCLIA [id number] [place] [address] CO2 [Moles/Vol] 27 mmol/L Normal 22-30 [facility] Comment on above: Order Comment: Speci men Type: BLOOD SPECIMENOrdering Facility: [facility] Address: [address] [place] [address] Performed By: #### 2 4323-8 ####[facility] LABCLIA [id number] [place] [address] Creatinine [Mass/Vol] 0.91 mg/dL Normal 0.58-0.96 [facility] Comment on above: Order Comment: Satish schroeder Type: BLOOD SPECIMENOrdering Facility: [facility] Address: [address] [place] [address] Performed By: #### 2 4323-8 ####[facility] LABCLIA [id number] [place] [address] ESTIMATED GLOMERULAR FILTRATION RATE 68 mL/min/1.73m??? Normal >=60 [facility] Comment on above: Order Comment: Satish schroeder Type: BLOOD SPECIMENOrdering Facility: [facility] Address: [address] [place] [address] Result Comment: Polina mated Glomerular Filtration Rate (eGFR) is calculated using the 2020 CKD-EPI creatinine equation. This equation utilizes serum creatinine, sex, and age as parameters. The creatinine assay has traceable calibration to isotope dilution-mass spectrometry. Refer to KDIGO guidelines for clinical interpretation. In patients with unstable renal function, e.g. those with acute kidney injury, the eGFR may not accurately reflect actual GFR. Performed By: #### 2 4323-8 ####[facility] LABCLIA [id number] [place] [address] Glucose [Mass/Vol] 130 mg/dL High 74-99 [facility] Comment on above: Order Comment: Satish schroeder Type: BLOOD SPECIMENOrdering Facility: [facility] Address: [address] [place] [address] Result Comment: The [place] [employer] (ADA) provides guidance for cutoff values for fasting glucose and random glucose. The ADA defines fasting as no caloric intake for at least 8 hours. Fasting plasma glucose results between 100 to 125 mg/dL indicate increased risk for diabetes (prediabetes).Fasting plasma glucose results greater than or equal to 126 mg/dL meet the criteria for diagnosis of diabetes. In the absence of unequivocal hyperglycemia, results should be confirmed by repeat testing. In a patient with classic symptoms of hyperglycemia or hyperglycemic crisis, random plasma glucose results greater than or equal to 200 mg/dL meet the criteria for diagnosis of diabetes.Reference: Standards of Medical Care in Diabetes 2016, [place] [employer]. Diabetes Care. 2016.39(Suppl 1). Performed By: #### 2 4323-8 ####[facility] LABCLIA [id number] [place] [address] Potassium [Moles/Vol] 3.9 mmol/L Normal 3.7-5.1 [facility] Comment on above: Order Comment: Speci men Type: BLOOD SPECIMENOrdering Facility: [facility] Address: [address] [address] Performed By: #### 2 4323-8 ####[facility] LABCLIA [id number] [place] [address] Protein [Mass/Vol] 6.9 g/dL Normal 6.3-8.0 [facility] Comment on above: Order Comment: Speci men Type: BLOOD SPECIMENOrdering Facility: [facility] Address: [address] [address] Performed By: #### 2 4323-8 ####[facility] LABCLIA [id number] [place] [address] Sodium [Moles/Vol] 140 mmol/L Normal 136-144 [facility] Comment on above: Order Comment: Speci men Type: BLOOD SPECIMENOrdering Facility: [facility] Address: [address] [address] Performed By: #### 2 4323-8 ####[facility] LABCLIA [id number] [place] [address] Urea nitrogen [Mass/Vol] 24 mg/dL High 7-21 [facility] Comment on above: Order Comment: Speci men Type: BLOOD SPECIMENOrdering Facility: [facility] Address: [address] [address] Performed By: #### 2 4323-8 ####[facility] LABCLIA [id number] [place] [address] Consultation Noteon 09-06-19 Consultation Note [id number]#[id number] D:127 Normal [facility] CNPNon 09-02-2022 CNPN Normal [facility] CBC W Auto Differential pane l (Bld)on 08-30-2022 Basophils (Bld) [#/Vol] <0.11 k/uL [facility] Basophils/100 WBC (Bld) 0.6 % [facility] Differential cell count method Nom (Bld) Auto [facility] Eosinophils (Bld) [#/Vol] 0.07 10*3/uL <0.46 k/uL [facility] Eosinophils/100 WBC (Bld) 2.0 % [facility] Erythrocyte distribution width (RBC) [Ratio] 14.6 % 11.5 - 15.0 % [facility] Hematocrit (Bld) [Volume fraction] 38.6 % 36.0 - 46.0 % [facility] Hemoglobin (Bld) [Mass/Vol] 12.9 g/dL 11.5 - 15.5 g/dL [facility] Immature granulocytes (Bld) [#/Vol] <0.10 k/uL [facility] Immature granulocytes/100 WBC (Bld) 0.3 % [facility] Lymphocytes (Bld) [#/Vol] 0.66 10*3/uL Low 1.00 - 4.00 k/uL [facility] Lymphocytes/100 WBC (Bld) 18.6 % [facility] MCH (RBC) [Entitic mass] 31.2 pg 26.0 - 34.[address] [facility] MCHC (RBC) [Mass/Vol] 33.4 g/dL 30.5 - 36.0 g/dL [facility] MCV (RBC) [Entitic vol] 93.5 fL 80.0 - 100.[address] [facility] Monocytes (Bld) [#/Vol] 0.36 10*3/uL <0.87 k/uL [facility] Monocytes/100 WBC (Bld) 10.2 % [facility] Neutrophils (Bld) [#/Vol] 2.42 10*3/uL 1.45 - 7.50 k/uL [facility] Neutrophils/100 WBC (Bld) 68.3 % [facility] Nucleated RBC (Bld) [#/Vol] <0.01 k/uL [facility] Nucleated RBC/100 WBC (Bld) [Ratio] 0.0 /[address] [facility] Platelet mean volume (Bld) [Entitic vol] 9.8 fL 9.0 - 12.[address] [facility] Platelets (Bld) [#/Vol] 192 10*3/uL 150 - 400 k/uL [facility] RBC (Bld) [#/Vol] 4.13 10*6/uL 3.90 - 5.20 m/uL [facility] WBC (Bld) [#/Vol] 3.54 10*3/uL Low 3.70 - 11.00 k/u L [facility] Basophils (Bld) [#/Vol] 10*3/uL Normal <0.11 [facility] Comment on above: Order Comment: Speci men Type: BLOOD SPECIMENOrdering Facility: [facility] Address: [address] [place] [address] Performed By: #### 5 7021-8 ####[facility] LABCLIA [id number] [place] [address] Basophils/100 WBC (Bld) 0.6 % Normal [facility] Comment on above: Order Comment: Speci men Type: BLOOD SPECIMENOrdering Facility: [facility] Address: [address] [place] [address] Performed By: #### 5 7021-8 ####[facility] LABCLIA [id number] [place] [address] Differential cell count method Nom (Bld) Auto Normal [facility] Comment on above: Order Comment: Speci men Type: BLOOD SPECIMENOrdering Facility: [facility] Address: [address] [place] [address] Performed By: #### 5 7021-8 ####[facility] LABCLIA [id number] [place] [address] Eosinophils (Bld) [#/Vol] 0.07 10*3/uL Normal <0.46 [facility] Comment on above: Order Comment: Speci men Type: BLOOD SPECIMENOrdering Facility: [facility] Address: [address] [address] Performed By: #### 5 7021-8 ####[facility] LABCLIA [id number] [place] [address] Eosinophils/100 WBC (Bld) 2.0 % Normal [facility] Comment on above: Order Comment: Speci men Type: BLOOD SPECIMENOrdering Facility: [facility] Address: [address] [address] Performed By: #### 5 7021-8 ####[facility] LABCLIA [id number] [place] [address] Erythrocyte distribution width (RBC) [Ratio] 14.6 % Normal 11.5-15.0 [facility] Comment on above: Order Comment: Speci men Type: BLOOD SPECIMENOrdering Facility: [facility] Address: [address] [address] Performed By: #### 5 7021-8 ####[facility] LABCLIA [id number] [place] [address] Hematocrit (Bld) [Volume fraction] 38.6 % Normal 36.0-46.0 [facility] Comment on above: Order Comment: Speci men Type: BLOOD SPECIMENOrdering Facility: [facility] Address: [address] [address] Performed By: #### 5 7021-8 ####[facility] LABCLIA [id number] [place] [address] Hemoglobin (Bld) [Mass/Vol] 12.9 g/dL Normal 11.5-15.5 [facility] Comment on above: Order Comment: Speci men Type: BLOOD SPECIMENOrdering Facility: [facility] Address: [address] [address] Performed By: #### 5 7021-8 ####[facility] LABCLIA [id number] [place] [address] Immature granulocytes (Bld) [#/Vol] 10*3/uL Normal <0.10 [facility] Comment on above: Order Comment: Speci men Type: BLOOD SPECIMENOrdering Facility: [facility] Address: [address] [place] [address] Performed By: #### 5 7021-8 ####[facility] LABCLIA [id number] [place] [address] Immature granulocytes/100 WBC (Bld) 0.3 % Normal [facility] Comment on above: Order Comment: Speci men Type: BLOOD SPECIMENOrdering Facility: [facility] Address: [address] [place] [address] Performed By: #### 5 7021-8 ####[facility] LABCLIA [id number] [place] [address] Lymphocytes (Bld) [#/Vol] 0.66 10*3/uL Low 1.00-4.00 [facility] Comment on above: Order Comment: Speci men Type: BLOOD SPECIMENOrdering Facility: [facility] Address: [address] [place] [address] Performed By: #### 5 7021-8 ####[facility] LABCLIA [id number] [place] [address] Lymphocytes/100 WBC (Bld) 18.6 % Normal [facility] Comment on above: Order Comment: Speci men Type: BLOOD SPECIMENOrdering Facility: [facility] Address: [address] [place] [address] Performed By: #### 5 7021-8 ####[facility] LABCLIA [id number] [place] [address] MCH (RBC) [Entitic mass] 31.2 pg Normal 26.0-34.0 [facility] Comment on above: Order Comment: Speci men Type: BLOOD SPECIMENOrdering Facility: [facility] Address: [address] [place] [address] Performed By: #### 5 7021-8 ####[facility] LABCLIA [id number] [place] [address] MCHC (RBC) [Mass/Vol] 33.4 g/dL Normal 30.5-36.0 [facility] Comment on above: Order Comment: Speci men Type: BLOOD SPECIMENOrdering Facility: [facility] Address: [address] [place] [address] Performed By: #### 5 7021-8 ####[facility] LABCLIA [id number] [place] [address] MCV (RBC) [Entitic vol] 93.5 fL Normal 80.0-100.0 [facility] Comment on above: Order Comment: Speci men Type: BLOOD SPECIMENOrdering Facility: [facility] Address: [address] [place] [address] Performed By: #### 5 7021-8 ####[facility] LABCLIA [id number] [place] [address] Monocytes (Bld) [#/Vol] 0.36 10*3/uL Normal <0.87 [facility] Comment on above: Order Comment: Speci men Type: BLOOD SPECIMENOrdering Facility: [facility] Address: [address] [place] [address] Performed By: #### 5 7021-8 ####[facility] LABCLIA [id number] [place] [address] Monocytes/100 WBC (Bld) 10.2 % Normal [facility] Comment on above: Order Comment: Speci men Type: BLOOD SPECIMENOrdering Facility: [facility] Address: [address] [place] [address] Performed By: #### 5 7021-8 ####[facility] LABCLIA [id number] [place] [address] Neutrophils (Bld) [#/Vol] 2.42 10*3/uL Normal 1.45-7.50 [facility] Comment on above: Order Comment: Speci men Type: BLOOD SPECIMENOrdering Facility: [facility] Address: [address] [place] [address] Performed By: #### 5 7021-8 ####[facility] LABCLIA [id number] [place] [address] Neutrophils/100 WBC (Bld) 68.3 % Normal [facility] Comment on above: Order Comment: Speci men Type: BLOOD SPECIMENOrdering Facility: [facility] Address: [address] [place] [address] Performed By: #### 5 7021-8 ####[facility] LABCLIA [id number] [place] [address] Nucleated RBC (Bld) [#/Vol] 10*3/uL Normal <0.01 [facility] Comment on above: Order Comment: Speci men Type: BLOOD SPECIMENOrdering Facility: [facility] Address: [address] [place] [address] Performed By: #### 5 7021-8 ####[facility] LABCLIA [id number] [place] [address] Nucleated RBC/100 WBC (Bld) [Ratio] 0.0 /100 WBC Normal [facility] Comment on above: Order Comment: Speci men Type: BLOOD SPECIMENOrdering Facility: [facility] Address: [address] [place] [address] Performed By: #### 5 7021-8 ####[facility] LABCLIA [id number] [place] [address] Platelet mean volume (Bld) [Entitic vol] 9.8 fL Normal 9.0-12.7 [facility] Comment on above: Order Comment: Speci men Type: BLOOD SPECIMENOrdering Facility: [facility] Address: [address] [address] Performed By: #### 5 7021-8 ####[facility] LABIA [id number] [place] [address] Platelets (Bld) [#/Vol] 192 10*3/uL Normal 150-400 [facility] Comment on above: Order Comment: Speci men Type: BLOOD SPECIMENOrdering Facility: [facility] Address: [address] [place] [address] Performed By: #### 5 7021-8 ####[facility] LABIA [id number] [place] [address] RBC (Bld) [#/Vol] 4.13 10*6/uL Normal 3.90-5.20 [facility] Comment on above: Order Comment: Speci men Type: BLOOD SPECIMENOrdering Facility: [facility] Address: [address] [place] [address] Performed By: #### 5 7021-8 ####[facility] LABIA [id number] [place] [address] WBC (Bld) [#/Vol] 3.54 10*3/uL Low 3.70-11.00 [facility] Comment on above: Order Comment: Speci men Type: BLOOD SPECIMENOrdering Facility: [facility] Address: [address] [place] [address] Performed By: #### 5 7021-8 ####[facility] LABIA [id number] [place] [address] CNOVSPon 08-30-2022 CNOVSP Normal [facility] Comprehensive metabolic 2000 panelon 08-30-2022 Albumin [Mass/Vol] 4.3 g/dL 3.9 - 4.9 g/dL [facility] ALP [Catalytic activity/Vol] 115 U/L 34 - 123 U/L [facility] ALT [Catalytic activity/Vol] 15 U/L 7 - 38 U/L [facility] Anion gap [Moles/Vol] 10 mmol/L 9 - 18 mmol/L [facility] AST [Catalytic activity/Vol] 16 U/L 13 - 35 U/L [facility] Bilirubin [Mass/Vol] 0.3 mg/dL 0.2 - 1.3 mg/dL [facility] Calcium [Mass/Vol] 9.9 mg/dL 8.5 - 10.2 mg/dL [facility] Chloride [Moles/Vol] 103 mmol/L 97 - 105 mmol/L [facility] CO2 [Moles/Vol] 27 mmol/L 22 - 30 mmol/L [facility] Creatinine [Mass/Vol] 0.99 mg/dL High 0.58 - 0.96 mg/dL [facility] Estimated Glomerular Filtration Rate 62 mL/min/1.73m >=60 mL/min/1.73m [facility] Glucose [Mass/Vol] 160 mg/dL High 74 - 99 mg/dL [facility] Potassium [Moles/Vol] 3.9 mmol/L 3.7 - 5.1 mmol/L [facility] Protein [Mass/Vol] 7.2 g/dL 6.3 - 8.0 g/dL [facility] Sodium [Moles/Vol] 140 mmol/L 136 - 144 mmol/L [facility] Urea nitrogen [Mass/Vol] 23 mg/dL High 7 - 21 mg/dL [facility] Albumin [Mass/Vol] 4.3 g/dL Normal 3.9-4.9 [facility] Comment on above: Order Comment: Speci men Type: BLOOD SPECIMENOrdering Facility: [facility] Address: [address] [place] [address] Performed By: #### 2 4323-8 ####[facility] LABCLIA [id number] [place] [address] ALP [Catalytic activity/Vol] 115 U/L Normal 34-123 [facility] Comment on above: Order Comment: Speci men Type: BLOOD SPECIMENOrdering Facility: [facility] Address: [address] [place] [address] Performed By: #### 2 4323-8 ####[facility] LABCLIA [id number] [place] [address] ALT [Catalytic activity/Vol] 15 U/L Normal 7-38 [facility] Comment on above: Order Comment: Speci men Type: BLOOD SPECIMENOrdering Facility: [facility] Address: [address] [place] [address] Performed By: #### 2 4323-8 ####[facility] LABCLIA [id number] [place] [address] Anion gap [Moles/Vol] 10 mmol/L Normal 9-18 [facility] Comment on above: Order Comment: Speci men Type: BLOOD SPECIMENOrdering Facility: [facility] Address: [address] [place] [address] Performed By: #### 2 4323-8 ####[facility] LABCLIA [id number] [place] [address] AST [Catalytic activity/Vol] 16 U/L Normal 13-35 [facility] Comment on above: Order Comment: Speci men Type: BLOOD SPECIMENOrdering Facility: [facility] Address: [address] [place] [address] Performed By: #### 2 4323-8 ####[facility] LABCLIA [id number] [place] [address] Bilirubin [Mass/Vol] 0.3 mg/dL Normal 0.2-1.3 [facility] Comment on above: Order Comment: Speci men Type: BLOOD SPECIMENOrdering Facility: [facility] Address: [address] [address] Performed By: #### 2 4323-8 ####[facility] LABCLIA [id number] [place] [address] Calcium [Mass/Vol] 9.9 mg/dL Normal 8.5-10.2 [facility] Comment on above: Order Comment: Speci men Type: BLOOD SPECIMENOrdering Facility: [facility] Address: [address] [place] [address] Performed By: #### 2 4323-8 ####[facility] LABCLIA [id number] [place] [address] Chloride [Moles/Vol] 103 mmol/L Normal 97-105 [facility] Comment on above: Order Comment: Speci men Type: BLOOD SPECIMENOrdering Facility: [facility] Address: [address] [place] [address] Performed By: #### 2 4323-8 ####[facility] LABCLIA [id number] [place] [address] CO2 [Moles/Vol] 27 mmol/L Normal 22-30 [facility] Comment on above: Order Comment: Speci men Type: BLOOD SPECIMENOrdering Facility: [facility] Address: [address] [place] [address] Performed By: #### 2 4323-8 ####[facility] LABCLIA [id number] [place] [address] Creatinine [Mass/Vol] 0.99 mg/dL High 0.58-0.96 [facility] Comment on above: Order Comment: Speci men Type: BLOOD SPECIMENOrdering Facility: [facility] Address: [address] [place] [address] Performed By: #### 2 4323-8 ####[facility] LABCLIA [id number] [place] [address] ESTIMATED GLOMERULAR FILTRATION RATE 62 mL/min/1.73m??? Normal >=60 [facility] Comment on above: Order Comment: Speci men Type: BLOOD SPECIMENOrdering Facility: [facility] Address: [address] [place] [address] Result Comment: Polina mated Glomerular Filtration Rate (eGFR) is calculated using the 2020 CKD-EPI creatinine equation. This equation utilizes serum creatinine, sex, and age as parameters. The creatinine assay has traceable calibration to isotope dilution-mass spectrometry. Refer to KDIGO guidelines for clinical interpretation. In patients with unstable renal function, e.g. those with acute kidney injury, the eGFR may not accurately reflect actual GFR. Performed By: #### 2 4323-8 ####[facility] LABIA [id number] [place] [address] Glucose [Mass/Vol] 160 mg/dL High 74-99 [facility] Comment on above: Order Comment: Speci men Type: BLOOD SPECIMENOrdering Facility: [facility] Address: [address] [place] [address] Result Comment: The [place] Diabetes Association (ADA) provides guidance for cutoff values for fasting glucose and random glucose. The ADA defines fasting as no caloric intake for at least 8 hours. Fasting plasma glucose results between 100 to 125 mg/dL indicate increased risk for diabetes (prediabetes).Fasting plasma glucose results greater than or equal to 126 mg/dL meet the criteria for diagnosis of diabetes. In the absence of unequivocal hyperglycemia, results should be confirmed by repeat testing. In a patient with classic symptoms of hyperglycemia or hyperglycemic crisis, random plasma glucose results greater than or equal to 200 mg/dL meet the criteria for diagnosis of diabetes.Reference: Standards of Medical Care in Diabetes 2016, [place] Diabetes Association. Diabetes Care. 2016.39(Suppl 1). Performed By: #### 2 4323-8 ####[facility] LABIA [id number] [place] [address] Potassium [Moles/Vol] 3.9 mmol/L Normal 3.7-5.1 [facility] Comment on above: Order Comment: Speci men Type: BLOOD SPECIMENOrdering Facility: [facility] Address: [address] [address] Performed By: #### 2 4323-8 ####[facility] LABCLIA [id number] [place] [address] Protein [Mass/Vol] 7.2 g/dL Normal 6.3-8.0 [facility] Comment on above: Order Comment: Sarai men Type: BLOOD SPECIMENOrdering Facility: [facility] Address: [address] [place] [address] Performed By: #### 2 4323-8 ####[facility] LABCLIA [id number] [place] [address] Sodium [Moles/Vol] 140 mmol/L Normal 136-144 [facility] Comment on above: Order Comment: Speci men Type: BLOOD SPECIMENOrdering Facility: [facility] Address: [address] [place] [address] Performed By: #### 2 4323-8 ####[facility] LABCLIA [id number] [place] [address] Urea nitrogen [Mass/Vol] 23 mg/dL High 7-21 [facility] Comment on above: Order Comment: Speci men Type: BLOOD SPECIMENOrdering Facility: [facility] Address: [address] [place] [address] Performed By: #### 2 4323-8 ####[facility] LABCLIA [id number] [place] [address] CNSWon 08-26-2022 CNSW Normal [facility] Consultation Noteon 08-19-19 Consultation Note [id number] D:127 Normal [facility] CNOVon 08-12-2022 CNOV Normal [facility] Ambulatory Visit Summaryon 0 08-09-2022 Ambulatory Visit Summary TIMA CORTESCHANTEL Beasley :1955 Visit Date:08/09/2022 Ambulatory Visit Instructions Your Diagnosis RLS (restless legs syndrome) Osteoarthritis HTN (hypertension), benign Mixed hyperlipidemia BMI 40.0-44.9, adult Class 3 obesity Your Care Team Attending Physician - Nate Bobby MD Primary Care Physician - Nate Bobby MD This Is Your Medications List amlodipine (amLODIPine 10 mg Tab) atorvastatin (atorvastatin 40 mg Tab) carvedilol (carvedilol 25 mg Tab) celecoxib (CeleBREX 100 mg Cap) levothyroxine (levothyroxine 50 mcg (0.05 mg) Tab) loratadine (loratadine 10 mg Tab) metformin (metformin 1000 mg Tab) ropinirole (ropinirole 0.25 mg Tab) Procedures Performed Appendectomy, Arthroscopic knee operation, Lymphadenectomy, Reverse shoulder replacement, Shoulder, Tubal ligation. Discharge Vitals Heart Rate (Peripheral) 60 Respiratory Rate 16 Blood Pressure 138/80 Height 60 in Height 152 cm Weight 223.3 lb Weight 101.5 kg BMI 43.93 What to do next Scheduled Follow-Up Appointments Tuesday 9:00 AM EDT With: Mukund MCGOVERN, Nate Montiel Where: [facility] Normal [address] [phone]- \.br\ Medications\.br\ What How Much When Instructions\.br\ Unchanged amlodipine (amLODIPine 10 mg Tab) 1 Tablets By Mouth Every day\.br\ Unchanged atorvastatin (atorvastatin 40 mg Tab) 1 Tablets By Mouth Every day\.br\ Unchanged carvedilol (carvedilol 25 mg Tab) 1 Tablets By Mouth 2 times a day\.br\ Unchanged celecoxib (CeleBREX 100 mg Cap) 1 Capsules By Mouth 2 times a day\.br\ Unchanged levothyroxine (levothyroxine 50 mcg (0.05 mg) Tab) 1 Tablets By Mouth Every day\.br\ Unchanged loratadine (loratadine 10 mg Tab) 1 Tablets By Mouth Every day\.br\ Unchanged metformin (metformin 1000 mg Tab) 1 Tablets By Mouth 2 times a day\.br\ Unchanged ropinirole (ropinirole 0.25 mg Tab) 1 Tablets By Mouth Every day\.br\ Allergies\.br\ No Known Allergies\.br\ Problems\.br\ Ongoing - Any problem that you are currently receiving treatment for.\.br\ BMI 40.0-44.9, adult\.br\ Breast cancer\.br\ HTN (hypertension), benign\.br\ Mixed hyperlipidemia\.b r\ Non-smoker\.br\ Osteoarthritis\.b r\ Osteopenia\.br\ RLS (restless legs syndrome)\.br\ \.br\ [facility] Office/Clini c Noteon 08-09-2022 Family Medicine Office/Clinic Note Chief Complaint follow up chronic conditions HPI Staff follow up htn, dm and hyperlipidemia Patient is here for follow up on hypertension. How often are you checking your blood pressure? once a week_ What are your average readings? 140's/70's _ Do you have any of the following symptoms? Chest Pain? no Palpitations? no NEGRO/SOB? yes says it's from her alergies Headache? yes Peripheral Edema? no Light Headedness? no Yearly BMP: _07/05/22 Refill needed?: no Patient is here for follow up on Diabetes. How often are you checking your blood sugars? _ times per day What are your average readings? _ Do you have any of the following symptoms? Foot Exam: due Eye Exam: due Microalbumin: ?? Last A1C: ?? Last Chronic Labs: 07/05/22 Patient is here for follow up on hyperlipidemia: Do you have side effects from the medication? no Refill needed?: no Yearly Lipid labs: 07/05/22 questions/concerns: would like her lab results History of Present Illness - Pt here for follow up. - Meloxicam has helped greatly. - Pt states her RLS has improved - Labs reviewed. Review of Systems PHQ Score Initial Depression Screen Score: 0 Physical Exam Vitals & Measurements HR: 60(Peripheral) RR: 16 BP: 138/80 SpO2: 93% HT: 60 in HT: 152 cm WT: 101.5 kg WT: 223.3 lb BMI: 43.93 General: alert, no acute distress ENMT: oral mucosa moist, Cardiovascular: regular rate and rhythm, normal peripheral perfusion Respiratory: Lungs CTA, respirations non labored Extremities: no deformity, no trauma, Neurological: oriented x 4, LOC appropriate for age, CN II-XII intact, motor strength equal & normal bilaterally, speech normal Assessment/Plan 1. RLS (restless legs syndrome) (G25.81: Restless legs syndrome) - Improved with Ropinirole - Continue with meds as before. - Will refill as needed. Ordered: Body Mass Index (BMI) documented 3008F Current tobacco non-user 1036F Depression Screening Negative 3352F Influenza immunization administered or previously received 4274F Most recent diastolic blood pressure 80-89 mm Hg 3079F Patient screen for fall risk: no falls in last year or 1 fall with no injury in last year 1101F Systolic BP <130 mm Hg (Most Recent) 3074F 2. Osteoarthritis (M19.90: Unspecified osteoarthritis, unspecified site) - Celebrex is working well. - No issues. - Will refill today as she is now controlled Ordered: Body Mass Index (BMI) documented 3008F Current tobacco non-user 1036F Depression Screening Negative 3352F Influenza immunization administered or previously received 4274F Most recent diastolic blood pressure 80-89 mm Hg 3079F Patient screen for fall risk: no falls in last year or 1 fall with no injury in last year 1101F Systolic BP <130 mm Hg (Most Recent) 3074F 3. HTN (hypertension), benign (I10: Essential (primary) hypertension) - Bps are at goal today. Ordered: Body Mass Index (BMI) documented 3008F Current tobacco non-user 1036F Depression Screening Negative 3352F Influenza immunization administered or previously received 4274F Most recent diastolic blood pressure 80-89 mm Hg 3079F Patient screen for fall risk: no falls in last year or 1 fall with no injury in last year 1101F Systolic BP <130 mm Hg (Most Recent) 3074F 4. Mixed hyperlipidemia (E78.2: Mixed hyperlipidemia) - Continue on statin as before. Ordered: Body Mass Index (BMI) documented 3008F Current tobacco non-user 1036F Depression Screening Negative 3352F Influenza immunization administered or previously received 4274F Most recent diastolic blood pressure 80-89 mm Hg 3079F Patient screen for fall risk: no falls in last year or 1 fall with no injury in last year 1101F Systolic BP <130 mm Hg (Most Recent) 3074F 5. BMI 40.0-44.9, adult (Z68.41: Body mass index [BMI] 40.0-44.9, adult) - BMI education given. Ordered: Body Mass Index (BMI) documented 3008F Current tobacco non-user 1036F Depression Screening Negative 3352F Influenza immunization administered or previously received 4274F Most recent diastolic blood pressure 80-89 mm Hg 3079F Patient screen for fall risk: no falls in last year or 1 fall with no injury in last year 1101F Systolic BP <130 mm Hg (Most Recent) 3074F 6. Class 3 obesity (E66.01: Morbid (severe) obesity due to excess calories) - As above. Ordered: Body Mass Index (BMI) documented 3008F Current tobacco non-user 1036F Depression Screening Negative 3352F Influenza immunization administered or previously received 4274F Most recent diastolic blood pressure 80-89 mm Hg 3079F Patient screen for fall risk: no falls in last year or 1 fall with no injury in last year 1101F Systolic BP <130 mm Hg (Most Recent) 3074F 7. Prediabetes (R73.03: Prediabetes) - Will recheck A1c next visit. 8. Right knee pain (M25.561: Pain in right knee) - Will order aquatic therapy for the patient. - If no improvement we will send to ortho. Orders: celec (more content not included)... Normal [facility] Comment on above: Result Comment: Elec tronically Signed By: Mukund MCGOVERN, Nate Schrader.br\Date and Time Signed: 08/09/22 10:07 EDT CNPNon 08-05-2022 CNPN Normal [facility] Consultation Noteon 08-03-19 Consultation Note [id number] D:127 Normal [facility] Dexa Scanson 07-28-2022 Dexa Scans [id number] D:127 [facility] Dexa Scans [id number] D:127 [facility] Lab Reportson 07-28-2022 Lab Reports [id number] D:127 Normal [facility] Family Medicine Office/Clini c Noteon 07-27-2022 Family Medicine Office/Clinic Note Chief Complaint Subsequent Medicare Wellness Visit History of Present Illness I was in the office and available for consultation and to provide direct supervision at the time of this visit. I have provided supervision of the care team and have reviewed this chart and office note and agree with the plan of care. Covid-19, MERS, Ebola Screen *Contact With Person With Highly Contagious Disease Like Ebola/MERS/COVID-19 AND Have One or More of the Symptoms Below : No *Travel to a Country With Wide-Spread Ebola/MERS/COVID-19 in the Past 21 Days AND Have One or More of the Symptoms Below : No Patient Reported Covid-19 Testing : No *Verify Droplet, Contact Precautions for Ebola (Reference for CDC) : N/A *Verify Airborne, Droplet Precautions for MERS/COVID-19 : N/A Nakul Barney 07/22/2022 10:44 EDT Medicare/Medicaid Summary Height/Length Measured : 152 cm(Converted to: 5 ft 0 in, 59.84 in) Weight Measured : 100.5 kg(Converted to: 221 lb 9 Ounces, 221.565 lb) Body Mass Index Measured : 43.5 kg/m2 Height in Inches : 60 in Weight in Pounds : 221.1 lb Systolic Blood Pressure : 136 mmHg Diastolic Blood Pressure : 80 mmHg Blood Pressure Location : Left arm Peripheral Pulse Rate : 54 bpm (LOW) SpO2 : 96 % Pain Present : Yes actual or suspected pain Numeric Rating Pain Scale : 8 Primary Pain Comments : all joints Primary Pain Location : Knee Numeric Rating Pain Score : 8 Nakul Barney 07/22/2022 11:45 EDT Chief Complaint : Subsequent Medicare Wellness Visit Patient Counseled : Nutrition, Physical activity, Elevated BMI Blood Pressure Position : Sitting Nakul Barney 07/22/2022 10:44 EDT Hearing and Vision Screening FT Vision Screen Comments : Wears Corrective lenses, follows annually, states due at this time Nakul Barney 07/22/2022 11:45 EDT FT Whisper Test Comments : No deficits voiced Nakul Barney 07/22/2022 10:44 EDT Advance Directive FT Advance Directive : Yes Type of Advance Directive : Living will, Medical durable power of banking attorney Location of Advance Directive : Copy at home, unable to obtain Patient Wishes to Receive Further Information on Advance Directives : No Organ Donation Consent : Yes Nakul Barney 07/22/2022 11:45 EDT Procedures / Surgeries FT - Procedure History (As Of: 07/22/2022 11:59:17 EDT) Anesthesia Minutes: 0 ; Procedure Name: Appendectomy ; Procedure Minutes: 0 ; Last Reviewed Dt/Tm: 07/22/2022 11:48:42 EDT Anesthesia Minutes: 0 ; Procedure Name: Tubal ligation ; Procedure Minutes: 0 ; Last Reviewed Dt/Tm: 07/22/2022 11:48:42 EDT Anesthesia Minutes: 0 ; Procedure Name: Arthroscopic knee operation ; Procedure Minutes: 0 ; Last Reviewed Dt/Tm: 07/22/2022 11:48:42 EDT Anesthesia Minutes: 0 ; Procedure Name: Reverse shoulder replacement ; Procedure Minutes: 0 ; Last Reviewed Dt/Tm: 07/22/2022 11:48:42 EDT Anesthesia Minutes: 0 ; Procedure Name: Shoulder ; Procedure Minutes: 0 ; Comments: 05/03/2022 11:00 Jocelin Cole torn ligament in right shoulder ; Last Reviewed Dt/Tm: 07/22/2022 11:48:42 EDT Anesthesia Minutes: 0 ; Procedure Name: Lymphadenectomy ; Procedure Minutes: 0 ; Comments: 05/03/2022 11:02 Jocelin Cole A breast ; Last Reviewed Dt/Tm: 07/22/2022 11:48:42 EDT Family History Family History (As Of: 07/22/2022 11:59:18 EDT) Father: Relation: Father ; Gender: Male ; Nomenclature: Acute myocardial infarction ; Value: Positive Mother: Relation: Mother ; Gender: Female ; Nomenclature: Primary malignant neoplasm of lung ; Value: Positive Brother: Relation: Brother ; Gender: Male ; Nomenclature: Primary malignant neoplasm of brain ; Value: Positive Aunt: Relation: Aunt ; Nomenclature: Acute myocardial infarction ; Value: Positive Grandparent: Relation: Grandparent ; Nomenclature: Acute myocardial infarction ; Value: Positive Medicare/Medicaid Social History FT Social History (As Of: 07/22/2022 11:59:18 EDT) Tobacco: Denies Tobacco Use Never (less than 100 in lifetime) Tobacco Use:. Cigarettes, Household tobacco concerns: No. (Last Updated: 07/05/2022 17:43:54 EDT by Alejandra Bradley LPN) Health Risk Assessment FT HRA little interest or pleasure? : No HRA down, depressed, or hopeless? : No Hazards in your house? : No Fall Risk Past Year : No Worried About Falling : No Use a Cane or Walker? : No Someone Helps You in the Morning : No Fallen or felt dizzy standing up? : No Assistance with personal care? : No Trouble taking meds correctly? : No HRA Pain Present : Yes Primary Pain Location : Knee Numeric Rating Pain Scale : 8 Numeric Rating Pain Score : 8 Able to walk without help? : Yes Ability to shop w/out help : Yes Prepare your own meals? : Yes Housework without help? : Yes Handle money without help : Yes Track own medications without help? : Yes Overall mood for past four weeks : Pretty well General health rating : G (more content not included)... Normal [facility] Comment on above: Result Comment: Elec tronically Signed By: Nate Bobby MD\.br\Date and Time Signed: 07/27/22 14:55 EDT\.br\Electronically Co-Signed By: Nakul Barney\.br\Date and Time Co-Signed: 07/22/22 12:54 EDT XR DEXA BONE DENSITYon 07-27 XR DEXA BONE DENSITY EXAMINATION: XR DEXA BONE DENSITY, 07/27/2022 9:53 AM EDT HISTORY: Menopause present COMPARISON: None. TECHNIQUE: Dual-energy X-ray absorptiometry (DEXA) bone density study performed for the axial skeleton. HISTORY: Menopause present FINDINGS: Bone mineral density AP spine L2-L4 measures 1.380 g/sq cm. T score 1.5. WHO classification: Normal. Lowest bone mineral density right femoral neck measures 0.741 g/sq cm. T score -2.1. WHO classification: Osteopenia IMPRESSION: Osteopenia. Moderate fracture risk Electronically authenticated by: PARISA JACKMAN Date: 2022-07-27 12:01 Normal [facility] Ambulatory Visit Summaryon 0 07-22-2022 Ambulatory Visit Summary KIAH CORTES :1955 Visit Date:07/22/2022 Ambulatory Visit Instructions Your Diagnosis Encounter for annual general medical examination without abnormal findings in adult Encounter for hepatitis C screening test for low risk patient Ovarian failure Type II diabetes mellitus, well controlled BMI 40.0-44.9, adult Breast cancer HTN (hypertension), benign Tests Performed BD Bone Density DEXA -- Results Pending -- Please visit your patient portal for your results or contact your primary care physician. Your Care Team Attending Physician - Nate Bobby MD Primary Care Physician - Nate Bobby MD This Is Your Medications List amlodipine (amLODIPine 10 mg Tab) atorvastatin (atorvastatin 40 mg Tab) carvedilol (carvedilol 25 mg Tab) celecoxib (CeleBREX 100 mg Cap) levothyroxine (levothyroxine 50 mcg (0.05 mg) Tab) loratadine (loratadine 10 mg Tab) metformin (metformin 1000 mg Tab) ropinirole (ropinirole 0.25 mg Tab) Procedures Performed Appendectomy, Arthroscopic knee operation, Lymphadenectomy, Reverse shoulder replacement, Shoulder, Tubal ligation. Discharge Vitals Heart Rate (Peripheral) 54 Blood Pressure 136/80 Height 152 cm Height 60 in Weight 100.5 kg Weight 221.1 lb BMI 43.5 What to do next Scheduled Follow-Up Appointments Tuesday 10:00 AM EDT With: Mukund MCGOVERN, Nate Montiel Where: [place] [phone] \.br\ You Need to Complete the Following\.br\ HCV Antibody RFX to Quant PCR, Blood, Routine collect, 07/22/22, Order for future visit, Lab Collect, Encounter for hepatitis C screening test for low risk patient, Not Required, Print Label By Order Location\.br\ HgbA1c, Blood, Routine collect, 07/22/22, Order for future visit, Lab Collect, Type II diabetes mellitus, well controlled, Required & Missing, Print Label By Order Location\.br\ Medications\.br\ What How Much When Instructions\.br\ Unchanged amlodipine (amLODIPine 10 mg Tab) 1 Tablets By Mouth Every day\.br\ Unchanged atorvastatin (atorvastatin 40 mg Tab) 1 Tablets By Mouth Every day\.br\ Unchanged carvedilol (carvedilol 25 mg Tab) 1 Tablets By Mouth 2 times a day\.br\ Unchanged celecoxib (CeleBREX 100 mg Cap) 1 Capsules By Mouth 2 times a day\.br\ Unchanged levothyroxine (levothyroxine 50 mcg (0.05 mg) Tab) 1 Tablets By Mouth Every day\.br\ Unchanged loratadine (loratadine 10 mg Tab) 1 Tablets By Mouth Every day\.br\ Unchanged metformin (metformin 1000 mg Tab) 1 Tablets By Mouth 2 times a day\.br\ Unchanged ropinirole (ropinirole 0.25 mg Tab) 1 Tablets By Mouth Every day\.br\ Allergies\.br\ No Known Allergies\.br\ Problems\.br\ Ongoing - Any problem that you are currently receiving treatment for.\.br\ BMI 40.0-44.9, adult\.br\ Breast cancer\.br\ HTN (hypertension), benign\.br\ Mixed hyperlipidemia\.b r\ Non-smoker\.br\ RLS (restless legs syndrome)\.br\ Education Materials\.br\ Hypertension, Adult\.br\ High blood pressure (hypertension) is when the force of blood pumping through the arteries is too strong. The arteries are the blood vessels that carry blood from the heart throughout the body. Hypertension forces the heart to work harder to pump blood and may cause arteries to become narrow or stiff. Untreated or uncontrolled hypertension can lead to a heart attack, heart failure, a stroke, kidney disease, and other problems.\.br\ A blood pressure reading consists of a higher number over a lower number. Ideally, your blood pressure should be below 120/80. The first ( top ) number is called the systolic pressure. It is a measure of the pressure in your arteries as your heart beats. The second ( bottom ) number is called the diastolic pressure. It is a measure of the pressure in your arteries as the heart relaxes.\.br\ What are the causes?\.br\ The exact cause of this condition is not known. There are some conditions that result in high blood pressure.\.br\ What increases the risk?\.br\ Certain factors may make you more likely to develop high blood pressure. Some of these risk factors are under your control, including:\.br\ ? \.br\ Smoking.\.br\ ? \.br\ Not getting enough exercise or physical activity.\.br\ ? \.br\ Being overweight.\.br\ ? \.br\ Having too much fat, sugar, calories, or salt (sodium) in your diet.\.br\ ? \.br\ Drinking too much alcohol.\.br\ Other risk factors include:\.br\ ? \.br\ Having a personal history of heart disease, diabetes, high cholesterol, or kidney disease.\.br\ ? \.br\ Stress.\.br\ ? \.br\ Having a family history of high blood pressure and high cholesterol.\.br\ ? \.br\ Having obstructive sleep apnea.\.br\ ? \.br\ Age. The risk increases with age.\.br\ What are the signs or symptoms?\.br\ High blood pressure may not cause symptoms. Very high blood pressure (hypertensive crisis) may cause:\.br\ ? \.br\ Headache.\.br\ ? \.br\ Fast or irregular heartbeats (palpitations).\. br\ ? \.br\ Shortness of breath.\.br\ ? \.br\ Nosebleed.\.br\ ? \.br\ Nausea and vomiting.\.br\ ? \.br\ Vision changes.\.br\ ? \.br\ Severe chest pain, dizziness, and seizures.\.br\ How is this diagnosed?\.br\ This condition is diagnosed by measuring your blood pressure while you are seated, with your arm resting on a flat surface, your legs uncrossed, and your feet flat on the floor. The cuff of the blood pressure monitor will be placed directly against the skin of your upper arm at the level of your heart. Blood pressure should be measured at least twice using the same arm. Certain conditions can cause a difference in blood pressure between your right and left arms.\.br\ If you have a high blood pressure reading during one visit or you have normal blood pressure with other risk factors, you may be asked to:\.br\ ? \.br\ Return on a different day to have your blood pressure checked again.\.br\ ? \.br\ Monitor your blood pressure at home for 1 week or longer.\.br\ If you are diagnosed with hypertension, you may have other blood or imaging tests to help your health care provider understand your overall risk for other conditions.\.br\ How is this treated?\.br\ This condition is treated by making healthy lifestyle changes, such as eating healthy foods, exercising more, and reducing your alcohol intake. You may be referred for counseling on a healthy diet and physical activity.\.br\ Your health care provider may prescribe medicine if lifestyle changes are not enough to get your blood pressure under control and if:\.br\ ? \.br\ Your systolic blood pressure is above 130.\.br\ ? \.br\ Your diastolic blood pressure is above 80.\.br\ Your personal target blood pressure may vary depending on your medical conditions, your age, and other factors.\.br\ Follow these instructions at home:\.br\ Eating and drinking\.br\ \.br\ ? \.br\ Eat a diet that is high in fiber and potassium, and low in sodium, added sugar, and fat. An example of this eating plan is called the DASH diet. DASH stands for Dietary Approaches to Stop Hypertension. To eat this way:\.br\ ? \.br\ Eat plenty of fresh fruits and vegetables. Try to fill one half of your plate at each meal with fruits and vegetables.\.br\ ? \.br\ Eat whole grains, such as whole-wheat pasta, brown rice, or whole-grain bread. Fill about one fourth of your plate with whole grains.\.br\ ? \.br\ Eat or drink low-fat dairy products, such as skim milk or low-fat yogurt.\.br\ ? \.br\ Avoid fatty cuts of meat, processed or cured meats, and poultry with skin. Fill about one fourth of your plate with lean proteins, such as fish, chicken without skin, beans, eggs, or tofu.\.br\ ? \.br\ Avoid pre-made and processed foods. These tend to be higher in sodium, added sugar, and fat.\.br\ ? \.br\ Reduce your daily sodium intake. Many people with hypertension should eat less than 1,500 mg of sodium a day.\.br\ ? \.br\ Do not drink alcohol if:\.br\ ? \.br\ Your health care provider tells you not to drink.\.br\ ? \.br\ You are , may be , or are planning to become .\.br\ ? \.br\ If you drink alcohol:\.br\ ? \.br\ Limit how much you have to:\.br\ ? \.br\ 0?1 drink a day for women.\.br\ ? \.br\ 0?2 drinks a day for men.\.br\ ? \.br\ Know how much alcohol is in your drink. In the [place] one drink equals one 12 oz bottle of beer (355 mL), one 5 oz glass of wine (148 mL), or one 1? oz glass of hard liquor (44 mL).\.br\ Lifestyle\.br\ \.br\ ? \.br\ Work with your health care provider to maintain a healthy body weight or to lose weight. Ask what an ideal weight is for you.\.br\ ? \.br\ Get at least 30 minutes of exercise that causes your heart to beat faster (aerobic exercise) most days of the week. Activities may include walking, swimming, or biking.\.br\ ? \.br\ Include exercise to strengthen your muscles (resistance exercise), dung [facility] Patient Educationon 07-23-19 Patient Education Cardiovascular Hypertension, Adult High blood pressure (hypertension) is when the force of blood pumping through the arteries is too strong. The arteries are the blood vessels that carry blood from the heart throughout the body. Hypertension forces the heart to work harder to pump blood and may cause arteries to become narrow or stiff. Untreated or uncontrolled hypertension can lead to a heart attack, heart failure, a stroke, kidney disease, and other problems. A blood pressure reading consists of a higher number over a lower number. Ideally, your blood pressure should be below 120/80. The first ( top ) number is called the systolic pressure. It is a measure of the pressure in your arteries as your heart beats. The second ( bottom ) number is called the diastolic pressure. It is a measure of the pressure in your arteries as the heart relaxes. What are the causes? The exact cause of this condition is not known. There are some conditions that result in high blood pressure. What increases the risk? Certain factors may make you more likely to develop high blood pressure. Some of these risk factors are under your control, including: ? Smoking. ? Not getting enough exercise or physical activity. ? Being overweight. ? Having too much fat, sugar, calories, or salt (sodium) in your diet. ? Drinking too much alcohol. Other risk factors include: ? Having a personal history of heart disease, diabetes, high cholesterol, or kidney disease. ? Stress. ? Having a family history of high blood pressure and high cholesterol. ? Having obstructive sleep apnea. ? Age. The risk increases with age. What are the signs or symptoms? High blood pressure may not cause symptoms. Very high blood pressure (hypertensive crisis) may cause: ? Headache. ? Fast or irregular heartbeats (palpitations). ? Shortness of breath. ? Nosebleed. ? Nausea and vomiting. ? Vision changes. ? Severe chest pain, dizziness, and seizures. How is this diagnosed? This condition is diagnosed by measuring your blood pressure while you are seated, with your arm resting on a flat surface, your legs uncrossed, and your feet flat on the floor. The cuff of the blood pressure monitor will be placed directly against the skin of your upper arm at the level of your heart. Blood pressure should be measured at least twice using the same arm. Certain conditions can cause a difference in blood pressure between your right and left arms. If you have a high blood pressure reading during one visit or you have normal blood pressure with other risk factors, you may be asked to: ? Return on a different day to have your blood pressure checked again. ? Monitor your blood pressure at home for 1 week or longer. If you are diagnosed with hypertension, you may have other blood or imaging tests to help your health care provider understand your overall risk for other conditions. How is this treated? This condition is treated by making healthy lifestyle changes, such as eating healthy foods, exercising more, and reducing your alcohol intake. You may be referred for counseling on a healthy diet and physical activity. Your health care provider may prescribe medicine if lifestyle changes are not enough to get your blood pressure under control and if: ? Your systolic blood pressure is above 130. ? Your diastolic blood pressure is above 80. Your personal target blood pressure may vary depending on your medical conditions, your age, and other factors. Follow these instructions at home: Eating and drinking ? Eat a diet that is high in fiber and potassium, and low in sodium, added sugar, and fat. An example of this eating plan is called the DASH diet. DASH stands for Dietary Approaches to Stop Hypertension. To eat this way: ? Eat plenty of fresh fruits and vegetables. Try to fill one half of your plate at each meal with fruits and vegetables. ? Eat whole grains, such as whole-wheat pasta, brown rice, or whole-grain bread. Fill about one fourth of your plate with whole grains. ? Eat or drink low-fat dairy products, such as skim milk or low-fat yogurt. ? Avoid fatty cuts of meat, processed or cured meats, and poultry with skin. Fill about one fourth of your plate with lean proteins, such as fish, chicken without skin, beans, eggs, or tofu. ? Avoid pre-made and processed foods. These tend to be higher in sodium, added sugar, and fat. ? Reduce your daily sodium intake. Many people with hypertension should eat less than 1,500 mg of sodium a day. ? Do not drink alcohol if: ? Your health care provider tells you not to drink. ? You are , may be , or are planning to become . ? If you drink alcohol: ? Limit how much you have to: ? 0?1 drink a day for women. ? 0?2 drinks a day for men. ? Know how much alcohol is in your drink. In the [place] one drink equals one 12 oz bottle of beer (355 mL), one 5 oz glass of wine (148 mL), or one 1? oz glass (more content not included)... Normal [facility] Screenson 07-22-2022 Screens [id number] D:127 Normal [facility] ANES POSTPROC EVALon 023 ANES POSTPROC EVAL HNO ID: [id number] Author: Jeanie Meadows MD Service: Anesthesiology Author Type: Anesthesiologist Type: Anesthesia Postprocedure Evaluation Filed: 05/24/2022 11:13 AM Note Text: POST ANESTHESIA EVALUATION NOTE : 1955 Procedure Summary Date: 05/24/22 Room / Location: Procedures Anesthesia Start: 950 Anesthesia Stop: 1012 Procedure: COLONOSCOPY DIAGNOSTIC Diagnosis: Diverticulitis (Abnormal CT of the GI tract) Scheduled Providers: Joaquín Mahmood Jr., MD; JUANITA Winn; Nancy Nguyen RN; Jeanie Meadows MD Responsible Provider: Jeanie Meadows MD Anesthesia Type: MAC ASA Status: 3 Anesthesia Type: MAC Last Vitals Vitals Value Taken Time BP 110/72 05/24/22 1035 Temp 36.2 ?C (97.1 ?F) 05/24/22 1011 HR SpO2 63 05/24/22 1011 Resp 18 05/24/22 1035 SpO2 100 % 05/24/22 1035 Vitals shown include unvalidated device data. Post Anesthesia Patient Status Patient Evaluation: PACU. Neurological Status: aware and responsive. Pulmonary Status: breathing comfortably on room air Airway Control: returned to baseline unsupported. Cardiovascular Status: stable. Pain Management: clinically adequate Postoperative Hydration: acceptable. Intraoperative Events: no significant anesthesia events Post Operative Nausea/Vomiting Status: no significant post operative nausea or vomiting Recommendation: continue current plan of care. Anesthesia Observations No Documentation SIGNATURE: JEANIE MEADOWS MD PATIENT NAME: Kiah Cortes DATE: May 24, 2022 TIME: 11:13 AM CSN: [id number] [facility] ANES PRE-OPon 05-24-2022 ANES PRE-OP HNO ID: [id number] Author: Jeanie Meadows MD Service: Anesthesiology Author Type: Anesthesiologist Type: Anesthesia Preprocedure Evaluation Filed: 05/24/2022 8:15 AM Note Text: ANESTHESIOLOGY DAY OF SURGERY NOTE : 1955 Procedure Information Date/Time: 05/24/22 0945 Scheduled providers: Joaquín Mahmood Jr., MD; UJANITA Winn; Nancy Nguyen RN; Jeanie Meadows MD Procedure: COLONOSCOPY DIAGNOSTIC Location: Procedures Estimated body mass index is 40.41 kg/m? as calculated from the following: Height as of 05/20/22: 157.5 cm (5' 2.01 ). Weight as of 05/20/22: 100.2 kg (221 lb). Most recent hematocrit and potassium results: Hematocrit 40.1 05/14/2022 Potassium 4.3 05/14/2022 Relevant Problems CARDIO (+) Aortic regurgitation (+) Primary hypertension ENDO (+) DMII (diabetes mellitus, type 2) (HCC) (+) Hypothyroidism PULMONARY (+) Mild intermittent asthma without complication Oncology (+) Malignant neoplasm of right breast in female, estrogen receptor positive (HCC) Other (+) Morbid obesity (HCC) I - PHYSICAL EVALUATION AIRWAY Patient intubated: No. Tracheostomy tube not present Mallampati: II. TM distance: >3 FB. Neck ROM: full ROM without neurological symptoms. Mouth opening: adequate. Short neck: no. Thick neck: no DENTAL Normal dental observations. Dental findings: teeth intact. Additional exam findings: yes. CARDIOVASCULAR Rhythm: regular Rate: normal PULMONARY Breath sounds clear to auscultation. II - ANESTHESIA PLAN ASA Score: 3 Anesthetic Plan: MAC NPO Status: adequate Beta [place] Monitoring Plan Monitoring plan: Standard ASA. Post Procedure Analgesic Plan Postoperative analgesic plan: parenteral or oral opioids and multimodal analgesia. Informed Consent Anesthetic risks, benefits, alternatives, personnel and consent discussed: yes. Patient / Responsible Green Party agrees to proceed: yes Patient / Surrogate agrees to blood products: blood products not planned DNR status not reviewed with patient and/or family prior to surgery. Significant changes in the patient condition since the History and Physical, not otherwise documented in primary service progress note: no. Potential Anesthesia issues that may suggest increased risk of complications or contraindication to planned procedure: none. No vitals data found for the desired time range. Outpatient Medications as of 05/24/2022 Medication Sig - nystatin (MYCOSTATIN) powder Apply 1 application to affected area twice daily. - albuterol HFA (PROVENTIL HFA, VENTOLIN HFA) 90 mcg/actuation inhaler INHALE 2 PUFFS 4 TIMES PER DAY NEEDED FOR SHORTNESS OF BREATH OR WHEEZING - ondansetron (ZOFRAN) 8 mg tablet Take 1 tablet by mouth every 8 hours as needed for nausea/vomiting. - prochlorperazine (COMPAZINE) 10 mg tablet Take 1 tablet by mouth every 6 hours as needed. - atorvastatin (LIPITOR) 40 mg tablet Take 40 mg by mouth once daily. - loratadine (CLARITIN) 10 mg tablet Take 10 mg by mouth once daily. - metFORMIN (GLUCOPHAGE) 1,000 mg tablet Metformin Active 1000 MG PO Every morning May 04, 2021 3:24pm - carvedilol (COREG) 25 mg tablet Take 25 mg by mouth twice daily. - acetaminophen (TYLENOL) 325 mg tablet Take 650 mg by mouth every 6 hours as needed. - amLODIPine (NORVASC) 10 mg tablet Take 10 mg by mouth once daily. - levothyroxine sodium (LEVOTHYROXINE ORAL) Take 50 mcg by mouth once daily. - rOPINIRole (REQUIP) 0.25 mg tablet Take 0.25 mg by mouth three times daily. Facility-Administered Medications as of 05/24/2022 Medication Dose Route Frequency - lidocaine 20 mg/mL (2 %) injection (XYLOCAINE) X (OR/PROCEDURE) PRN - lidocaine 20 mg/mL (2 %) injection (XYLOCAINE) X (OR/PROCEDURE) PRN I have interviewed and examined the patient. I have reviewed the medical record and/or the pre-anesthesia evaluation, pertinent labs, and test results. This contains updated information obtained within 48 hours of Surgery/Procedure. SIGNATURE: JEANIE MEADOWS MD PATIENT NAME: Kiah Cortes DATE: May 24, 2022 TIME: 8:15 AM CSN: [id number] Normal [facility] COLONOSCOPY DIAGNOSTICon [facility] Colonoscopyon 05-24-2022 Colonoscopy [facility] Gastrointestinal Endoscopy Patient Name: Kiah Cortes Procedure Date: 05/24/2022 9:43 AM Date of : 1955 Admit Type: Outpatient Age: 67 Room: [place] [address] Gender: Female Note Status: Finalized Attending MD: Joaquín Mahmood Jr, MD Procedure: Colonoscopy Indications: Abnormal CT of the GI tract Providers: Joaquín Mahmood Jr, MD Patient Profile: Last Colonoscopy: more than 10 years ago. Referring Physician: Jonny Shaw MD (Referring MD) Medicines: Monitored Anesthesia Care Complications: No immediate complications. Requesting Provider: Procedure: Pre-Anesthesia Assessment: - Prior to the procedure, a History and Physical was performed, and patient medications and allergies were reviewed. The patient's tolerance of previous anesthesia was also reviewed. The risks and benefits of the procedure and the sedation options and risks were discussed with the patient. All questions were answered, and informed consent was obtained. Prior Anticoagulants: The patient has taken no anticoagulant or antiplatelet agents. ASA Grade Assessment: II - A patient with mild systemic disease. After reviewing the risks and benefits, the patient was deemed in satisfactory condition to undergo the procedure. After I obtained informed consent, the scope was passed under direct vision. Throughout the procedure, the patient's blood pressure, pulse, and oxygen saturations were monitored continuously. The Colonoscope was introduced through the anus and advanced to the cecum, identified by appendiceal orifice and ileocecal valve. The colonoscopy was performed with ease. The patient tolerated the procedure well. The quality of the bowel preparation was good. The ileocecal valve, appendiceal orifice, and rectum were photographed. Scope Withdrawal Time: 0 hours 8 minutes 24 seconds Moderate Sedation: MAC anesthesia was administered by the anesthesia team. Total Procedure Duration: 0 hours 11 minutes 50 seconds Findings: No masses on digital rectal exam Scattered diverticula were found in the sigmoid colon. There is no endoscopic evidence of inflammation, stricture or ulcerations in the sigmoid colon. The exam was otherwise normal throughout the examined colon. Impression: - Diverticulosis in the sigmoid colon. - No specimens collected. Recommendation: - Repeat colonoscopy in 10 years for screening purposes. - Patient has a contact number available for emergencies. The signs and symptoms of potential delayed complications were discussed with the patient. Return to normal activities tomorrow. Written discharge instructions were provided to the patient. - Continue present medications. - Resume previous diet. Procedure Code(s): --- Professional --- 68058, Colonoscopy, flexible; diagnostic, including collection of specimen(s) by brushing or washing, when performed (separate procedure) Diagnosis Code(s): --- Professional --- K57.30, Diverticulosis of large intestine without perforation or abscess without bleeding R93.3, Abnormal findings on diagnostic imaging of other parts of digestive tract CPT copyright 2020 [employer]. All rights reserved. The codes documented in this report are preliminary and upon help desk specialist review may be revised to meet current compliance requirements. Attending Participation: I personally performed the entire procedure. Scope In: 9:57:52 AM Scope Out: 10:09:42 AM MD Joaquín Lozano Jr, MD 05/24/2022 10:12:39 AM This report has been signed electronically by Joaquín Mahmood Jr, MD Number of Addenda: 0 Note Initiated On: 05/24/2022 9:43 AM Estimated Blood Loss: Estimated blood loss: none. Normal [facility] HISTORY PHYSICALon HISTORY PHYSICAL HNO ID: [id number] Author: Joaquín Mahmood Jr., MD Service: Gastroenterology Author Type: Physician Type: HANDP Filed: 05/24/2022 9:47 AM Note Text: UPDATED HISTORY AND PHYSICAL EXAMINATION SERVICE DATE: 05/24/2022 SERVICE TIME: 9:47 AM PHYSICAL EXAM MUST BE COMPLETED ON ADMISSION The History and Physical (completed in the past 30 days) has been reviewed and the patient has been examined. The contents accurately reflect the patient's condition with the following additions or revisions since the HANDP was completed. Examination indicates no changes. This HANDP can be found in the Electronic Medical Record dated 05.14.22. SIGNATURE: Joaquín Mahmood Jr, MD PATIENT NAME: Kiah Cortes DATE: May 24, 2022 TIME: 9:47 AM Normal [facility] CBC W Auto Differential pane l (Bld)on 05-14-2022 Basophils (Bld) [#/Vol] <0.11 k/uL [facility] Basophils/100 WBC (Bld) 0.3 % [facility] Differential cell count method Nom (Bld) Auto [facility] Eosinophils (Bld) [#/Vol] 0.06 10*3/uL <0.46 k/uL [facility] Eosinophils/100 WBC (Bld) 0.9 % [facility] Erythrocyte distribution width (RBC) [Ratio] 14.7 % 11.5 - 15.0 % [facility] Hematocrit (Bld) [Volume fraction] 40.1 % 36.0 - 46.0 % [facility] Hemoglobin (Bld) [Mass/Vol] 12.8 g/dL 11.5 - 15.5 g/dL [facility] Immature granulocytes (Bld) [#/Vol] <0.10 k/uL [facility] Immature granulocytes/100 WBC (Bld) 0.3 % [facility] Lymphocytes (Bld) [#/Vol] 1.75 10*3/uL 1.00 - 4.00 k/uL [facility] Lymphocytes/100 WBC (Bld) 26.3 % [facility] MCH (RBC) [Entitic mass] 29.6 pg 26.0 - 34.[address] [facility] MCHC (RBC) [Mass/Vol] 31.9 g/dL 30.5 - 36.0 g/dL [facility] MCV (RBC) [Entitic vol] 92.8 fL 80.0 - 100.[address] [facility] Monocytes (Bld) [#/Vol] 0.52 10*3/uL <0.87 k/uL [facility] Monocytes/100 WBC (Bld) 7.8 % [facility] Neutrophils (Bld) [#/Vol] 4.29 10*3/uL 1.45 - 7.50 k/uL [facility] Neutrophils/100 WBC (Bld) 64.4 % [facility] Nucleated RBC (Bld) [#/Vol] <0.01 k/uL [facility] Nucleated RBC/100 WBC (Bld) [Ratio] 0.0 /[address] [facility] Platelet mean volume (Bld) [Entitic vol] 9.9 fL 9.0 - 12.[address] [facility] Platelets (Bld) [#/Vol] 204 10*3/uL 150 - 400 k/uL [facility] RBC (Bld) [#/Vol] 4.32 10*6/uL 3.90 - 5.20 m/uL [facility] WBC (Bld) [#/Vol] 6.66 10*3/uL 3.70 - 11.00 k/u L [facility] Comprehensive metabolic 2000 panelon 05-14-2022 Albumin [Mass/Vol] 4.2 g/dL 3.9 - 4.9 g/dL [facility] ALP [Catalytic activity/Vol] 102 U/L 34 - 123 U/L [facility] ALT [Catalytic activity/Vol] 13 U/L 7 - 38 U/L [facility] Anion gap [Moles/Vol] 13 mmol/L 9 - 18 mmol/L [facility] AST [Catalytic activity/Vol] 15 U/L 13 - 35 U/L [facility] Bilirubin [Mass/Vol] 0.2 mg/dL 0.2 - 1.3 mg/dL [facility] Calcium [Mass/Vol] 10.3 mg/dL High 8.5 - 10.2 mg/dL [facility] Chloride [Moles/Vol] 104 mmol/L 97 - 105 mmol/L [facility] CO2 [Moles/Vol] 23 mmol/L 22 - 30 mmol/L [facility] Creatinine [Mass/Vol] 0.89 mg/dL 0.58 - 0.96 mg/dL [facility] Estimated Glomerular Filtration Rate 70 mL/min/1.73m >=60 mL/min/1.73m [facility] Glucose [Mass/Vol] 175 mg/dL High 74 - 99 mg/dL [facility] Potassium [Moles/Vol] 4.3 mmol/L 3.7 - 5.1 mmol/L [facility] Protein [Mass/Vol] 7.3 g/dL 6.3 - 8.0 g/dL [facility] Sodium [Moles/Vol] 140 mmol/L 136 - 144 mmol/L [facility] Urea nitrogen [Mass/Vol] 20 mg/dL 7 - 21 mg/dL [facility] CBC W Auto Differential pane l (Bld)on 04-02-2022 Basophils (Bld) [#/Vol] <0.11 k/uL [facility] Basophils/100 WBC (Bld) 0.4 % [facility] Differential cell count method Nom (Bld) Auto [facility] Eosinophils (Bld) [#/Vol] 0.07 10*3/uL <0.46 k/uL [facility] Eosinophils/100 WBC (Bld) 1.4 % [facility] Erythrocyte distribution width (RBC) [Ratio] 14.5 % 11.5 - 15.0 % [facility] Hematocrit (Bld) [Volume fraction] 35.0 % Low 36.0 - 46.0 % [facility] Hemoglobin (Bld) [Mass/Vol] 11.4 g/dL Low 11.5 - 15.5 g/dL [facility] Immature granulocytes (Bld) [#/Vol] <0.10 k/uL [facility] Immature granulocytes/100 WBC (Bld) 0.2 % [facility] Lymphocytes (Bld) [#/Vol] 1.32 10*3/uL 1.00 - 4.00 k/uL [facility] Lymphocytes/100 WBC (Bld) 26.9 % [facility] MCH (RBC) [Entitic mass] 31.6 pg 26.0 - 34.[address] [facility] MCHC (RBC) [Mass/Vol] 32.6 g/dL 30.5 - 36.0 g/dL [facility] MCV (RBC) [Entitic vol] 97.0 fL 80.0 - 100.[address] [facility] Monocytes (Bld) [#/Vol] 0.44 10*3/uL <0.87 k/uL [facility] Monocytes/100 WBC (Bld) 9.0 % [facility] Neutrophils (Bld) [#/Vol] 3.04 10*3/uL 1.45 - 7.50 k/uL [facility] Neutrophils/100 WBC (Bld) 62.1 % [facility] Nucleated RBC (Bld) [#/Vol] <0.01 k/uL [facility] Nucleated RBC/100 WBC (Bld) [Ratio] 0.0 /[address] [facility] Platelet mean volume (Bld) [Entitic vol] 9.3 fL 9.0 - 12.[address] [facility] Platelets (Bld) [#/Vol] 169 10*3/uL 150 - 400 k/uL [facility] RBC (Bld) [#/Vol] 3.61 10*6/uL Low 3.90 - 5.20 m/uL [facility] WBC (Bld) [#/Vol] 4.90 10*3/uL 3.70 - 11.00 k/u L [facility] Comprehensive metabolic 2000 panelon 04-02-2022 Albumin [Mass/Vol] 3.8 g/dL Low 3.9 - 4.9 g/dL [facility] ALP [Catalytic activity/Vol] 91 U/L 34 - 123 U/L [facility] ALT [Catalytic activity/Vol] 12 U/L 7 - 38 U/L [facility] Anion gap [Moles/Vol] 8 mmol/L Low 9 - 18 mmol/L [facility] AST [Catalytic activity/Vol] 16 U/L 13 - 35 U/L [facility] Bilirubin [Mass/Vol] 0.2 mg/dL 0.2 - 1.3 mg/dL [facility] Calcium [Mass/Vol] 9.8 mg/dL 8.5 - 10.2 mg/dL [facility] Chloride [Moles/Vol] 104 mmol/L 97 - 105 mmol/L [facility] CO2 [Moles/Vol] 26 mmol/L 22 - 30 mmol/L [facility] Creatinine [Mass/Vol] 0.85 mg/dL 0.58 - 0.96 mg/dL [facility] Estimated Glomerular Filtration Rate 75 mL/min/1.73m >=60 mL/min/1.73m [facility] Glucose [Mass/Vol] 126 mg/dL High 74 - 99 mg/dL [facility] Potassium [Moles/Vol] 3.9 mmol/L 3.7 - 5.1 mmol/L [facility] Protein [Mass/Vol] 6.6 g/dL 6.3 - 8.0 g/dL [facility] Sodium [Moles/Vol] 138 mmol/L 136 - 144 mmol/L [facility] Urea nitrogen [Mass/Vol] 19 mg/dL 7 - 21 mg/dL [facility] ANES POSTPROC EVALon 023 ANES POSTPROC EVAL HNO ID: [id number] Author: Andi Tejeda MD Service: ? Author Type: Physician Type: Anesthesia Postprocedure Evaluation Filed: 03/25/2022 11:18 AM Note Text: POST ANESTHESIA EVALUATION NOTE : 1955 Procedure Summary Date: 03/25/22 Room / Location: [place] [address] / OR Anesthesia Start: 737 Anesthesia Stop: 1031 Procedures: LUMPECTOMY BREAST (Right: Breast) EXCISION BREAST LESION IDENTIFIED BY PREOPERATIVE PLACEMENT RADIOLOGICAL MARKER, OPEN, SINGLE LESION (Right: Breast) LYMPHADENECTOMY AXILLARY COMPLETE (Right: Axilla) Diagnosis: Malignant neoplasm of upper-outer quadrant of right breast in female, estrogen receptor positive (HCC) Breast cancer metastasized to axillary lymph node, right (HCC) (Malignant neoplasm of upper-outer quadrant of right breast in female, estrogen receptor positive (HCC) [C50.411, Z17.0]) (Breast cancer metastasized to axillary lymph node, right (HCC) [C50.911, C77.3]) Surgeons: Shahana Mercedes MD Responsible Provider: Andi Tejeda MD Anesthesia Type: general ASA Status: 3 Anesthesia Type: general Airway Type: LMA Last Vitals Vitals Value Taken Time BP 150/75 03/25/22 1110 Temp 36.6 ?C (97.8 ?F) 03/25/22 1033 Pulse 74 03/25/22 1118 Resp 16 03/25/22 1033 SpO2 94 % 03/25/22 1118 Vitals shown include unvalidated device data. Post Anesthesia Patient Status Patient Evaluation: PACU. PACU/ICU Patient Condition: stable. Anticipated Disposition: phase 2 then home. Neurological Status: aware and responsive. Pulmonary Status: breathing comfortably on room air Airway Control: returned to baseline unsupported. Cardiovascular Status: stable. Pain Management: clinically adequate - multimodal analgesia pain management approach Postoperative Hydration: acceptable. Intraoperative Events: no significant anesthesia events Recommendation: continue current plan of care. Anesthesia Observations No Documentation SIGNATURE: Andi Tejeda MD PATIENT NAME: Kiah Cortes DATE: March 25, 2022 TIME: 11:18 AM CSN: [id number] [facility] ANES PRE-OPon 03-25-2022 ANES PRE-OP HNO ID: [id number] Author: Andi Tejeda MD Service: ? Author Type: Physician Type: Anesthesia Preprocedure Evaluation Filed: 03/25/2022 7:31 AM Note Text: ANESTHESIOLOGY DAY OF SURGERY NOTE : 1955 Procedure Information Date/Time: 03/25/22 0730 Procedures: LUMPECTOMY BREAST (Right: Breast) EXCISION BREAST LESION IDENTIFIED BY PREOPERATIVE PLACEMENT RADIOLOGICAL MARKER, OPEN, SINGLE LESION (Right: Breast) LYMPHADENECTOMY AXILLARY COMPLETE (Right: Axilla) Location: AV OR06 / AV OR Surgeons: Shahana Mercedes MD Estimated body mass index is 40.64 kg/m? as calculated from the following: Height as of 03/22/22: 157.5 cm (5' 2 ). Weight as of 03/22/22: 100.8 kg (222 lb 3.2 oz). Most recent hematocrit and potassium results: Hematocrit 36.8 03/19/2022 Potassium 4.2 03/19/2022 Relevant Problems CARDIO (+) Aortic regurgitation (+) Primary hypertension ENDO (+) DMII (diabetes mellitus, type 2) (HCC) (+) Hypothyroidism PULMONARY (+) Mild intermittent asthma without complication I - PHYSICAL EVALUATION AIRWAY Patient intubated: No. Tracheostomy tube not present Mallampati: III. TM distance: >3 FB. Neck ROM: full ROM without neurological symptoms. Mouth opening: adequate. Short neck: no. Thick neck: no DENTAL Dental findings: teeth intact. Additional exam findings: no II - ANESTHESIA PLAN ASA Score: 3 Anesthetic Plan: general Airway type: LMA NPO Status: adequate [facility] [place] Monitoring Plan Monitoring plan: Standard ASA. Post Procedure Analgesic Plan Postoperative analgesic plan: parenteral or oral opioids and multimodal analgesia. Informed Consent Anesthetic risks, benefits, alternatives, personnel and consent discussed: yes. Patient / Responsible [employer] agrees to proceed: yes Patient / Surrogate agrees to blood products: yes DNR status not reviewed with patient and/or family prior to surgery. Significant changes in the patient condition since the History and Physical, not otherwise documented in primary service progress note: no. Potential Anesthesia issues that may suggest increased risk of complications or contraindication to planned procedure: none. No vitals data found for the desired time range. Facility-Administered Medications as of 03/25/2022 Medication Dose Route Frequency - lidocaine (PF) 10 mg/mL (1 %) 1-2 mg injection (XYLOCAINE) 0.1-0.2 mL INTRADERMAL PRN - lactated ringers iv infusion 5-30 mL/hr INTRAVENOUS CONTINUOUS - ceFAZolin iv piggyback 2 g in D5W (iso-osmotic) 100 mL (ANCEF) 2 g INTRAVENOUS Pre-Op Once - lidocaine 20 mg/mL (2 %) injection (XYLOCAINE) X (OR/PROCEDURE) PRN - lidocaine 20 mg/mL (2 %) injection (XYLOCAINE) X (OR/PROCEDURE) PRN Outpatient Medications as of 03/25/2022 Medication Sig - albuterol HFA (PROVENTIL HFA, VENTOLIN HFA) 90 mcg/actuation inhaler INHALE 2 PUFFS 4 TIMES PER DAY NEEDED FOR SHORTNESS OF BREATH OR WHEEZING - ondansetron (ZOFRAN) 8 mg tablet Take 1 tablet by mouth every 8 hours as needed for nausea/vomiting. - prochlorperazine (COMPAZINE) 10 mg tablet Take 1 tablet by mouth every 6 hours as needed. - atorvastatin (LIPITOR) 40 mg tablet Take 40 mg by mouth once daily. - loratadine (CLARITIN) 10 mg tablet Take 10 mg by mouth once daily. - metFORMIN (GLUCOPHAGE) 1,000 mg tablet Metformin Active 1000 MG PO Every morning May 04, 2021 3:24pm - carvedilol (COREG) 25 mg tablet Take 25 mg by mouth twice daily. - acetaminophen (TYLENOL) 325 mg tablet Take 650 mg by mouth every 6 hours as needed. - amLODIPine (NORVASC) 10 mg tablet Take 10 mg by mouth once daily. - levothyroxine sodium (LEVOTHYROXINE ORAL) Take 50 mcg by mouth once daily. - rOPINIRole (REQUIP) 0.25 mg tablet Take 0.25 mg by mouth three times daily. - semaglutide (OZEMPIC) 0.25 mg or 0.5 mg(2 mg/1.5 mL) pen injector Inject 0.25 mg subcutaneously one time a week. - multivitamin/folic acid/biotin (OJGL-ZQOT-MAQSU, LC-OC-PBVVUZ, ORAL) Take 3 tablets by mouth once daily. I have interviewed and examined the patient. I have reviewed the medical record and/or the pre-anesthesia evaluation, pertinent labs, and test results. This contains updated information obtained within 48 hours of Surgery/Procedure. SIGNATURE: Andi Tejeda MD PATIENT NAME: Kiah Cortes DATE: March 25, 2022 TIME: 7:08 AM CSN: [id number] [facility] BRIEF OP NOTon 03-25-2022 BRIEF OP NOT HNO ID: [id number] Author: Shahana Mercedes MD Service: General Surgery Author Type: Physician Type: Brief Op Note Filed: 03/25/2022 10:19 AM Note Text: BRIEF OPERATIVE / PROCEDURE NOTE LOG ID: [id number] SURGERY/PROCEDURE DATE: 03/25/2022 INCISION/PROCEDURE START TIME: 8:04 AM INCISION CLOSE/PROCEDURE END TIME: 1017 SURGEON(S)/PROCEDURALIS T(S) AND NOVELTY PRINTING MACHINE OPERATOR(S): Surgeon(s) and Role: * Shahana Mercedes MD - Primary * Anne Bravo MD - Fellow Physician Milking Worker: Gera Phillips PA-C SURGERY/PROCEDURE(S): Right breast Yuliya business technology professor localized lumpectomy, right axillary dissection with Yuliya business technology professor localized excision of axillary lymph node, right reverse axillary mapping ANESTHESIA: General FINDINGS: All clips in specimen as appropriate ESTIMATED BLOOD LOSS: 20 mls SPECIMENS: Right axillary contents, right breast mass, margins COMPLICATIONS: None CLOSURE TECHNIQUE: Primary PRE-OP/PRE-PROCEDURE DIAGNOSIS: Right breast cancer with axillary lymph node metastasis POST-OP/POST-PROCEDURE DIAGNOSIS: Same as Preop SIGNATURE: Shahana Mercedes MD PATIENT NAME: Kiah Cortes DATE: March 25, 2022 TIME: 10:16 AM [facility] HISTORY PHYSICALon HISTORY PHYSICAL HNO ID: [id number] Author: Anne Bravo MD Service: General Surgery Author Type: Fellow Type: HANDP Filed: 03/25/2022 7:33 AM Note Text: UPDATED HISTORY AND PHYSICAL EXAMINATION PHYSICAL EXAM MUST BE COMPLETED ON ADMISSION The History and Physical (completed in the past 30 days) has been reviewed and the patient has been examined. The contents accurately reflect the patient's condition with the following additions or revisions since the HANDP was completed. Examination indicates no changes. HEART: RRR, no murmurs or rubs LUNGS: Clear to auscultation bilaterally This HANDP can be found in the Electronic Medical Record dated 03/19/22. SIGNATURE: Anne Bravo MD PATIENT NAME: Kiah Cortes DATE: 03/25/2022 TIME: 7:33 AM [facility] SURGICAL BREAST SPECIMEN RTon 03-25-2022 [facility] SURGICAL BREAST SPECIMEN RT * * *Final Report* * * DATE OF EXAM: Mar 25 2022 10:14AM W 0639 - [facility] SURGICAL BREAST SPECIMEN RT / PROCEDURE REASON: surgical specimen * * * * Physician Interpretation * * * * RESULT: #[id number] - [facility] SURGICAL BREAST SPECIMEN RT UNI-PLANAR RADIOGRAPH SPECIMEN IMAGING RIGHT BREAST: 03/25/2022 HISTORY: Surgical Specimen- right breast. Correlation is made to exam dated: 03/09/2022 breast [facility]. A surgical specimen was imaged using uni-planar radiograph specimen imaging for the concerning mass located in the right breast. This was described on the previous mammography report. Yuliya reflector is seen in the specimen. IMPRESSION: UNI-PLANAR RADIOGRAPH SPECIMEN IMAGING The imaged specimen includes the lesion, a biopsy clip, and a location device. The specimen shows characteristics of the mammographic findings. SUMMARY: Urgent Results: Additional images confirmed that the target (with localization clip and YULIYA) were contained in the specimen radiograph. The results of the specimen radiograph were discussed with Dr. Mercedes in the O.R. on 03/25/2022 at 10:00. Yoon Keenan M.D. fa/elva:03/25/2022 10:48:15 Perioperative Assistant(s): Bety Wallace, [facility] Multiple national specialty organizations have released breast cancer screening guidelines for women at average risk for developing breast cancer - guidelines that are based on both evidence and opinion, yet differ on when to start and how often to screen for breast cancer. With representation from Breast Imaging, Internal Medicine, Women's Health, Family Medicine, and Medical/Surgical Oncology, the [facility] has carefully reviewed the data and reached the following consensus: 1) All women should engage in shared decision-making with their providers to decide when to start and how often to screen; 2) All women should have the opportunity to start screening mammography at age 40; 3) For women ages 45-55, we recommend annual screening mammograms; 4) For women ages 55 and over, we support both the transition from an annual to a biennial interval if this aligns more with patient's values and preferences, or continuation with annual screening; 5) All women should discuss with their providers when to stop screening mammograms. Business Technology Professor: Elva Transcribe Date/Time: Mar 25 2022 10:17A Dictated by : YOON KEENAN MD This examination was interpreted and the report reviewed and electronically signed by: YOON KEENAN MD on Mar 25 2022 10:48AM EST [id number] [facility] SURGICAL BREAST SPECIMEN RT * * *Final Report* * * DATE OF EXAM: Mar 25 2022 9:22AM [facility] 0639 - [facility] SURGICAL BREAST SPECIMEN RT / PROCEDURE REASON: surgical specimen * * * * Physician Interpretation * * * * RESULT: #[id number] - [facility] SURGICAL BREAST SPECIMEN RT UNI-PLANAR RADIOGRAPH SPECIMEN IMAGING RIGHT BREAST: 03/25/2022 HISTORY: Surgical Specimen. Correlation is made to exams dated: 03/09/2022 breast MRI - [facility], 12/01/2021 localization - [facility], and 11/12/2021 ultrasound - [facility]. A surgical specimen was imaged using uni-planar radiograph specimen imaging for the concerning lymph node located in the right axilla. This was described on the previous mammography report. Yuliya reflector is seen in the specimen. IMPRESSION: UNI-PLANAR RADIOGRAPH SPECIMEN IMAGING The imaged specimen includes the lesion, a biopsy clip, and a location device. The specimen shows characteristics of the mammographic findings. SUMMARY: Urgent Results: Additional images confirmed that the target (with localization clip and YULIYA) were contained in the specimen radiograph. The results of the specimen radiograph were discussed with Dr. Mercedes in the O.R. on 03/25/2022 at 9:20. Yoon cueva/elva:03/25/2022 09:23:50 Perioperative Assistant(s): Kristal Worrell [facility] Multiple national specialty organizations have released breast cancer screening guidelines for women at average risk for developing breast cancer - guidelines that are based on both evidence and opinion, yet differ on when to start and how often to screen for breast cancer. With representation from Breast Imaging, Internal Medicine, Women's Health, Family Medicine, and Medical/Surgical Oncology, the [facility] has carefully reviewed the data and reached the following consensus: 1) All women should engage in shared decision-making with their providers to decide when to start and how often to screen; 2) All women should have the opportunity to start screening mammography at age 40; 3) For women ages 45-55, we recommend annual screening mammograms; 4) For women ages 55 and over, we support both the transition from an annual to a biennial interval if this aligns more with patient's values and preferences, or continuation with annual screening; 5) All women should discuss with their providers when to stop screening mammograms. Business Technology Professor: Elva Transcribe Date/Time: Mar 25 2022 9:21A Dictated by : YOON KEENAN MD This examination was interpreted and the report reviewed and electronically signed by: YOON KEENAN MD on Mar 25 2022 9:23AM EST [id number] [facility] OPERATIVE NOon 03-25-2022 OPERATIVE NO HNO ID: [id number] Author: Shahana Mercedes MD Service: General Surgery Author Type: Physician Type: Operative Report Filed: 03/29/2022 5:21 PM Note Text: OPERATIVE / PROCEDURE NOTE LOG ID: [id number] SURGERY/PROCEDURE DATE: 03/25/2022 INCISION/PROCEDURE START TIME: 8:04 AM INCISION CLOSE/PROCEDURE END TIME: 1017 SURGEON(S)/PROCEDURALIS T(S) AND NOVELTY PRINTING MACHINE OPERATOR(S): Surgeon(s) and Role: * Shahana Mercedes MD - Primary * Anne Bravo MD - Fellow Physician Milking Worker: Gera Phillips PA-C SURGERY/PROCEDURE(S): Right breast Yuliya business technology professor localized lumpectomy, right axillary dissection with Yuliya business technology professor localized excision of axillary lymph node, right reverse axillary mapping ANESTHESIA: General FINDINGS: All clips in specimen as appropriate ESTIMATED BLOOD LOSS: 20 mls SPECIMENS: Right axillary contents, right breast mass, margins COMPLICATIONS: None CLOSURE TECHNIQUE: Primary PRE-OP/PRE-PROCEDURE DIAGNOSIS: Right breast cancer with axillary lymph node metastasis POST-OP/POST-PROCEDURE DIAGNOSIS: Same as Preop INDICATION FOR PROCEDURE: This is a 66-year-old female who presented with a mass in right breast on exam and imaging. She underwent imaging guided biopsy, which showed breast cancer with lymph node metastasis. She underwent neoadjuvant chemotherapy with a moderate response in the breast but continued with abnormal appearing lymph nodes. She was counseled on surgical options and agreed to proceed with lumpectomy and axillary dissection. PROCEDURE: After informed consent was obtained, patient was brought to the operating room and transferred to the table in supine position. Monitoring was begun. The patient was sedated and LMA was placed. The right breast and axilla were prepped and draped in the usual sterile fashion. Time-out was performed, correct patient, procedure and operative site. Antibiotics were administered preoperatively. SCDs in place prior to induction. Prior to prepping the chest, the arm was injected with 4 mL lymphazurin divided in aliquots in the dermis and the bicipital groove. The arm was massaged to facilitate spread. Additionally the prior biopsied positive node was marked with a Yuliya business technology professor. Beginning at the axilla, a standard axillary incision was made and dissection carried through subcutaneous tissue with Bovie electrocautery. Clavipectoral fascia was divided and the axilla proper was entered. There was easy identification of a localized lymph node and this was included in our dissection. a standard axillary dissection was completed with clearance of the axillary tissue off the lateral border of the pectoralis and the chest wall taking care to identify and preserve the long thoracic nerve. The axillary vein was identified and preserved and we dissected laterally to the thoracodorsal bundle. Tissue encompassed in the borders were excised and there were no gross abnormalities noted. Once the axillary contents were cleared, the breast and axillary specimen was passed off after the breast was marked for orientation. The bed was copiously irrigated and hemostasis assured. RADHA drain was passed via a stab incision and secured to the skin level. This were attached to bulb suction. The skin incision were closed with interrupted 3-0 Vicryl followed by dermal layer followed by 4-0 Monocryl in the skin level. Attention was then turned towards the breast. A radial incision was marked over the mass and made after infiltration of local anesthesia. The skin flaps were elevated circumferentially, and the entirety of the mass was dissected free with Bovie electrocautery. Specimen was marked for orientation and was passed off as specimen radiograph guided by the Yuliya probe. The entire mass and clips were visualized within the specimen. Additional margins were taken about the cavity and posterior border of dissection was at the pectoralis fascia. The cavity was copiously irrigated and hemostasis was assured. The wound was then closed in layers with 3-0 Vicryl in the dermal layer, followed by 4-0 Monocryl on the skin. The skin was washed and dried, and skin glue was applied. Surgical dressing and bra were applied and the patient was transferred to recovery in stable condition. All sponge, instrument, and needle counts were verified correct at the end of the procedure. There was no qualified resident to help with the procedure. Dr. Bravo assisted with retraction and exposure, as well as assisted with closure under my supervision. Commission on Cancer - Standard 5.4: Axillary Dissection for Breast Cancer This procedure was not performed to treat breast cancer through sentinel node biopsy Axillary Lymph Node Dissection for Breast Cancer - Right Operation performed with curative intent Yes Resection was performed within the boundaries of the axillary vein, chest wall (serratus anterior), and latissimus dorsi Yes Nerves identified and preserved during dissect (more content not included)... [facility] SURGICAL PATHOLOGYon 023 ADDENDUM 1: [facility] Comment on above: Order Comment: Speci men Type: TISSUE SPECIMENOrdering Facility: [facility] Address: [address] [id number] Result Comment: This addendum is to clarify that ER, HI and HER2 immunostains were performed on [id number] block B2 and reported in the synoptic report. Addendum electronically signed by Francisco Javier Christie MD on 04/21/2022 at 9:17 AM Performed By: #### S ####[facility] LABCLIA [id number] [facility] [id number] [id number] [place] [facility] CASE REPORT [facility] Comment on above: Order Comment: Speci men Type: TISSUE SPECIMENOrdering Facility: [facility] Address: [address] [id number] Result Comment: Surg [facility] Pathology Report Case: [id number] Authorizing Provider: Shahana Mercedes MD Collected: 03/25/2022 09:18 AM Ordering Location: [facility] Surgery Received: 03/25/2022 10:33 AM Pathologist: Francisco Javier Christie MD Specimens: A) - AXILLARY CONTENTS RIGHT B) - BREAST LUMPECTOMY RIGHT, Right breast mass; short superior, long lateral with lumpectomy colors C) - BREAST MARGIN RIGHT, Right breast inferior margin D) - BREAST MARGIN RIGHT, Right breast superior margin E) - BREAST MARGIN RIGHT, Right breast medial margin F) - BREAST MARGIN RIGHT, Right breast anterior margin G) - BREAST MARGIN RIGHT, Right breast posterior margin H) - BREAST MARGIN RIGHT, Right breast lateral margin Performed By: #### S ####[facility] LABCLIA [id number] [address] CLINICAL HISTORY Normal [facility] Comment on above: Order Comment: Speci men Type: TISSUE SPECIMENOrdering Facility: [facility] Address: [address] [place] [address] Result Comment: Pre- op diagnosis: Malignant neoplasm of upper-outer quadrant of right breast in female, estrogen receptor positive (HCC) [C50.411, Z17.0] Breast cancer metastasized to axillary lymph node, right (HCC) [C50.911, C77.3] Performed By: #### S ####[facility] LABCLIA [id number] [address] DIAGNOSIS COMMENT Normal [facility] Comment on above: Order Comment: Speci men Type: TISSUE SPECIMENOrdering Facility: [facility] Address: [address] [place] [address] Result Comment: Immu nostains E-cadherin and beta-catenin performed on block B2 show membranous staining in the invasive carcinoma, supporting a ductal phenotype. To rule out apocrine feature, AR (for diagnostic purpose) was also performed on block B2 and shows patchy weak positivity, not supportive for apocrine feature. Laboratory Developed Test (LDT) Disclaimer: Performance characteristics of immunohistochemical, immunofluorescent and chromogenic in-situ hybridization tests have been determined by the performing laboratory within [facility]???s [facility] [place] ([facility], [facility], [facility], [facility], or [facility]) in a manner consistent with CLIA requirements. One or more of these tests have not been cleared or approved by the FDA. [facility] is regulated under CLIA as qualified to perform high-complexity testing. These tests are used for clinical purposes. They should not be regarded as investigational or for research. Positive and negative controls stain appropriately. Performed By: #### S ####[facility] LABCLIA [id number] [address] FINAL DIAGNOSIS [facility] Comment on above: Order Comment: Speci men Type: TISSUE SPECIMENOrdering Facility: [facility] Address: [address] [id number] Result Comment: A. R ight axillary contents, excision: -Macro-metastatic carcinoma with focal treatment effects present in 6 out of 12 lymph nodes, measuring up to 33 mm in greatest dimension (6/12) -Extranodal extension is present in at least one of the lymph nodes, measuring 0.5 mm -Yuliya Mortar Carrier and biopsy clip identified in one of the lymph nodes B. 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 Right breast, inferior margin, excision: -Benign breast tissue D. Right breast, superior margin, excision: -Benign breast parenchyma E. Right breast, medial margin, excision: -Benign breast tissue with intraductal papilloma and fibrocystic changes F. Right breast, anterior margin, excision: -Benign breast tissue G. Right breast, posterior margin, excision: -Benign breast tissue H. Right breast, lateral margin, excision: -Benign breast tissue XC 03/31/2022 Performed By: #### S ####[facility] LABCLIA [id number] [address] OF [facility] FINAL PERFORMING LAB [facility] Comment on above: Order Comment: Speci men Type: TISSUE SPECIMENOrdering Facility: [facility] Address: [address] [phone] Result Comment: Diag nostic interpretation performed at [facility], [address] [address] CLIA# [id number] Leaf Tier: Lucien Mays M.D. Performed By: #### S ####[facility] LABCLIA [id number] [facility] CLAIREDESK [id number] OF [facility] GROSS DESCRIPTION [facility] Comment on above: Order Comment: Speci men Type: TISSUE SPECIMENOrdering Facility: [facility] Address: [address] [address] Result Comment: A. A XILLARY CONTENTS RIGHT Received in formalin labeled axillary contents right are multiple irregularly shaped pieces of unoriented hood-yellow lobulated fragments of adipose tissue that aggregates to 11.1 x 7.4 x 2.4 cm and weighs 71.56 g. An X-ray image of the specimen is obtained and uploaded to the case in Epic revealing multiple possible hemostat clips, one Yuliya business technology professor breast biopsy clip marker, and a Q-shaped breast biopsy clip. Multiple possible lymph nodes are palpated and identified; the smallest lymph node is 0.4, ranging to 1.4 cm. One grossly ovoid-shaped diffusely indurated lymph node is identified with a Yuliya business technology professor breast biopsy clip marker and a Q-shaped breast biopsy clip that measures 3.3 x 2.2 x 2.2 cm. Fuel Cell Binder sections to include all possible lymphatic tissue is submitted in formalin as follows: A1-A6 one possible lymph node with the Yuliya business technology professor breast marker in cassette A1 and Q-shaped breast biopsy clip in A2; A7-A10 one possible serially sectioned lymph node; A11 two possible intact lymph nodes; A12-A19 one possible serially sectioned lymph node; A20 one possible bisected lymph node; A21 one possible trisected lymph node; A22 one possible trisected lymph node; A23 one possible serially sectioned lymph node; A24 one possible serially sectioned lymph node; A25 one possible serially sectioned lymph node; A26 one possible serially sectioned lymph node; A27 one possible serially sectioned lymph node. JDonW/ramón 03/25/2022 Gross examination performed at [facility], [address], [facility] [address] CLIA# [id number] B. BREAST LUMPECTOMY RIGHT Received in formalin labeled right breast mass, breast lumpectomy right is an oriented previously partially inked lumpectomy specimen received with a short suture designating superior, a long suture designating lateral, and the following attached inking scheme per the requisition form green-inferior, blue-superior, orange-medial, yellow-anterior, black-posterior, and red-lateral . The patient's medical chart is reviewed to reveal that the specimen has been x-rayed prior to being received in surgical pathology, it reveals one YULIYA CORRECTIONAL TREATMENT SPECIALIST breast biopsy clip marker and a possible stoplight-shaped breast biopsy clip. The specimen inking is touched up in surgical pathology following the corresponding and previously provided inking scheme. The specimen is not received with a needle localizing wire and an area of interest is not designated per the requisition form or specimen container. The specimen is serially sectioned from anterior to posterior into eight slices to reveal an ill-defined hood white indurated lesion situated within slices 3 through 4, that measures 2.2 cm from medial to lateral, 1.9 cm from anterior to posterior, and 1.2 cm from superior to inferior. A confirmed infinity-shaped breast biopsy clip is identified within slice 3 adjacent to a YULIYA CORRECTIONAL TREATMENT SPECIALIST breast biopsy clip marker identified within the same place. The lesion is situated 0.7 cm from the inferior margin, 1.7 cm from the superior margin, 1.2 cm from the lateral margin, 1.2 cm from medial margin, 1.7 cm from the anterior margin, and 4.3 cm from the posterior margin. The remainder of the cut surfaces are pink hood to hood yellow with no secondary lesions grossly present, it is composed of approximately 87% adipose tissue and the remainder interspersed hood white thin delicate fibrous stroma. Fuel Cell Binder sections are submitted as: B1-B2 lesion, entirely submitted from anterior to posterior: B1 slice 3 with nearest inferior margin, YULIYA CORRECTIONAL TREATMENT SPECIALIST and infinity-shaped clip site B2 slice 4 with nearest superior margin B3 slice 3 with nearest medial and lateral margins; B4 slice 2 with inferior margin, in plane of lesion; B5 slice 5, non-marginal, in plane of lesion; B6 treasury representative perpendicular sections from slice 1 to include anterior margin and slice 8 to include posterior margin. The time the specimen was removed from the patient and time placed in formalin is not documented on the requisition form or specimen container. JACK/evelyne 03/25/2022 Gross examination performed at [facility], [address] [address] CLIA# [id number] C. BREAST MARGIN RIGHT Received in formalin labeled right breast inferior margin is an oriented irregularly shaped piece of fibroadipose tissue oriented with green ink designating the inferior margin, and measures 2.8 x 2.3 x 0.7 cm. The inferior margin is re-inked black and the opposing margin is inked blue. The specimen is serially sectioned perpendicular to the long axis revealing hood-yellow to pink-hood homogenous cut surfaces with no discrete lesion grossly present. It is composed of approximately 60% adipose tissue and the remainder hood-white, interspersed fibrous stroma. The specimen is entirely submitted in formalin in cassettes C1-C2. D. BREAST MARGIN RIGHT Received in formalin labeled right breast superior margin is an irregularly shaped oriented piece of fibroadipose tissue receiv (more content not included)... 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 Histologic Grade (Mcmillan Histologic Score): Glandular (Acinar) / Tubular Differentiation: Score 3 Nuclear Pleomorphism: Score 2 Mitotic Rate: Score 1 Overall Grade: Grade 2 (scores of 6 or 7) Tumor Size: Greatest dimension of largest invasive focus (Millimeters): 22 mm Tumor Focality: Single focus of invasive carcinoma Ductal Carcinoma In Situ (DCIS): Present : Negative for extensive intraductal component (EIC) Lobular Carcinoma In Situ (LCIS): Not identified Lymphovascular Invasion: Not identified Dermal Lymphovascular Invasion: No skin present Microcalcifications: Present in non-neoplastic tissue Treatment Effect in the Breast: Probable or definite response to presurgical therapy in the invasive carcinoma Treatment Effect in the Lymph Nodes: Probable or definite response to presurgical therapy in metastatic carcinoma MARGINS Margin Status for Invasive Carcinoma: All margins negative for invasive carcinoma Distance from Invasive Carcinoma to Closest Margin: Greater than: 4 mm Closest Margin(s) to Invasive Carcinoma: Inferior Margin Status for DCIS: All margins negative for DCIS Distance from DCIS to Closest Margin: Greater than: 4 mm Closest Margin(s) to DCIS: Inferior REGIONAL LYMPH NODES Regional Lymph Node Status: : Tumor present in regional lymph node(s) Number of Lymph Nodes with Macrometastases: 6 Number of Lymph Nodes with Micrometastases: 0 Number of Lymph Nodes with Isolated Tumor Cells: 0 Size of Largest Peterson Metastatic Deposit: 33 mm Extranodal Extension: Present, 2 mm or less Total Number of Lymph Nodes Examined (sentinel and non-sentinel): 12 Number of [place] Nodes Examined: 0 PATHOLOGIC STAGE CLASSIFICATION (pTNM, AJCC 8th Edition) Reporting of pT, pN, and (when applicable) pM categories is based on information available to the pathologist at the time the report is issued. As per the AJCC (Chapter 1, 8th Ed.) it is the managing physician???s responsibility to establish the final pathologic stage based upon all pertinent information, including but potentially not limited to this pathology report. TNM Descriptors: y (post-treatment) pT Category: pT2 pN Category: pN2a Breast Biomarker Testing Performed on Previous Biopsy: Estrogen Receptor (ER) Status: Positive (greater than 10% of cells demonstrate nuclear positivity) Percentage of Cells with Nuclear Positivity: 91-100% Breast Biomarker Testing Performed on Previous Biopsy: Progesterone Receptor (PgR) Status: Positive Percentage of Cells with Nuclear Positivity: 91-100% Breast Biomarker Testing Performed on Previous Biopsy: HER2 (by immunohistochemistry): Negative (Score 0) Testing Performed on block B2 Comment(s): Fuel Cell Binder tumor block: B2. Performed By: #### S ####[facility] LABCLIA [id number] [place] [address] [place] MRI BREAST WO/W IVCON BILon 03-09-2022 MRI BREAST WO/W IVCON AUSTEN * * *Final Report* * * DATE OF EXAM: Mar 09 2022 12:33PM MMM [id number] - MRI BREAST WO/W IVCON AUSTEN / PROCEDURE REASON: multiple diagnoses * * * * Physician Interpretation * * * * #[id number] - MRI BREAST WO/W IVCON AUSTEN BREAST MRI OF BOTH BREASTS: 03/09/2022 HISTORY: Multiple Diagnoses/ Right breast cancer, MRI is to assess response to chemotherapy. RESULT: Comparison is made to exams dated: 12/01/2021 localization, 12/01/2021 localization - [facility], 11/12/2021 mammogram, 11/12/2021 ultrasound - [facility], 11/10/2021 breast MRI - [facility], and 10/02/2021 ultrasound biopsy. Interpretation of this MRI was correlated with available mammograms, ultrasounds, and previous MRI scans. MRI images were obtained with a dedicated breast coil. The patient was studied using the Sentinelle dedicated breast coil in the Siemens 1.5 Serenity scanner. Initial axial STIR imaging was carried out followed by axial T1-weighted GRE imaging both before and after IV administration of 20 ml of Dotarem. Subsequently, subtraction imaging and 3-D reconstruction were completed on an independent workstation. An additional 4 minute high resolution sequence was performed after the first two 1 minute post-contrast sequences. FINDINGS: Bilateral background breast enhancement is mild. Right breast: There is residual enhancing mass measuring 3.7 x 2.3 x 2.8 cm at 10:00 8 cm from the nipple with associated biopsy clip artifact. This is slightly less enhancing when compared to the original MRI dated 11/10/2021. There are multiple enlarged right axillary lymph nodes, 1 of which has a biopsy clip artifact. They are slightly decreased in size since original MRI from 11/10/2021, however they are still enlarged with cortical thickening up to 7 mm. Left breast: There is no suspicious mass, abnormal enhancement pattern, distortion or other significant abnormality in the left breast. No abnormalities noted in the left axilla. IMPRESSION: KNOWN BIOPSY PROVEN MALIGNANCY No evidence of malignancy in the left breast. Right breast: Some residual enhancing tissue at the site of known cancer, with slight decrease in size of right axillary lymph nodes as described. SUMMARY: Patient is under care of Dr. Mercedes. Yoon cueva/penrad:03/09/2022 13:23:59 Perioperative Assistant(s): Michaelle Duncan, RT(R), [facility] MRI BI-RADS: 6 Known biopsy proven malignancy Multiple national specialty organizations have released breast cancer screening guidelines for women at average risk for developing breast cancer - guidelines that are based on both evidence and opinion, yet differ on when to start and how often to screen for breast cancer. With representation from Breast Imaging, Internal Medicine, Women's Health, Family Medicine, and Medical/Surgical Oncology, the [facility] has carefully reviewed the data and reached the following consensus: 1) All women should engage in shared decision-making with their providers to decide when to start and how often to screen; 2) All women should have the opportunity to start screening mammography at age 40; 3) For women ages 45-55, we recommend annual screening mammograms; 4) For women ages 55 and over, we support both the transition from an annual to a biennial interval if this aligns more with patient's values and preferences, or continuation with annual screening; 5) All women should discuss with their providers when to stop screening mammograms. Business Technology Professor: Elva Transcribe Date/Time: Mar 09 2022 12:17P Dictated by : YOON KEENAN MD This examination was interpreted and the report reviewed and electronically signed by: YOON KEENAN MD on Mar 09 2022 1:23PM EST [id number] Normal [facility] TRANSFERRINon 02-25-2022 Transferrin [Mass/Vol] 223 mg/dL Normal 192-364 [facility] Comment on above: Performed By: #### T RANSFR #### [facility] [address] [address] [address] Kathleen Hidalgo FERRITINon 02-24-2022 Ferritin [Mass/Vol] 385.0 ng/mL Critically high 8.0-252.0 [facility] Comment on above: Performed By: #### F ERR, B12FOL, FETIBC #### [facility] [address] [address] [address] Kathleen Hidalgo IRON AND TIBCon 02-24-2022 % SATURATION 45.6 % Normal [facility] Comment on above: Performed By: #### F ERR, B12FOL, FETIBC #### [facility] [address] [address] [address] Kathleen Hidalgo Iron [Mass/Vol] 115.0 ug/dL Normal 50.0-170.0 [facility] Comment on above: Performed By: #### F ERR, B12FOL, FETIBC #### [facility] [address] [address] [address] Kathleen Hidalgo TIBC DIRECT 252.0 ug/dL Normal 250.0-450.0 [facility] Comment on above: Performed By: #### F ERR, B12FOL, FETIBC #### [facility] [address] [address] [address] Kathleen Hidalgo VIT B12 AND FOLATEon 022 Cobalamin (Vitamin B12) [Mass/Vol] pg/mL Critically high 193.0-986.0 [facility] Comment on above: Performed By: #### F ERR, B12FOL, FETIBC #### [facility] [address] [place] [address] Dr. Kathleen Hidalgo FOLATE 17.50 ng/mL Normal 8.60-58.90 [facility] Comment on above: Performed By: #### F ERR, B12FOL, FETIBC #### [facility] [address] [place] [address] Dr. Kathleen Hidalgo CBC W Auto Differential pane l (Bld)on 02-12-2022 Basophils (Bld) [#/Vol] <0.11 k/uL [facility] Basophils/100 WBC (Bld) 0.3 % [facility] Differential cell count method Nom (Bld) Auto [facility] Eosinophils (Bld) [#/Vol] 0.10 10*3/uL <0.46 k/uL [facility] Eosinophils/100 WBC (Bld) 1.5 % [facility] Erythrocyte distribution width (RBC) [Ratio] 17.2 % High 11.5 - 15.0 % [facility] Hematocrit (Bld) [Volume fraction] 32.5 % Low 36.0 - 46.0 % [facility] Hemoglobin (Bld) [Mass/Vol] 10.4 g/dL Low 11.5 - 15.5 g/dL [facility] Immature granulocytes (Bld) [#/Vol] <0.10 k/uL [facility] Immature granulocytes/100 WBC (Bld) 0.3 % [facility] Lymphocytes (Bld) [#/Vol] 1.00 10*3/uL 1.00 - 4.00 k/uL [facility] Lymphocytes/100 WBC (Bld) 14.9 % [facility] MCH (RBC) [Entitic mass] 31.0 pg 26.0 - 34.[address] [facility] MCHC (RBC) [Mass/Vol] 32.0 g/dL 30.5 - 36.0 g/dL [facility] MCV (RBC) [Entitic vol] 97.0 fL 80.0 - 100.[address] [facility] Monocytes (Bld) [#/Vol] 0.47 10*3/uL <0.87 k/uL [facility] Monocytes/100 WBC (Bld) 7.0 % [facility] Neutrophils (Bld) [#/Vol] 5.10 10*3/uL 1.45 - 7.50 k/uL [facility] Neutrophils/100 WBC (Bld) 76.0 % [facility] Nucleated RBC (Bld) [#/Vol] <0.01 k/uL [facility] Nucleated RBC/100 WBC (Bld) [Ratio] 0.0 /[address] [facility] Platelet mean volume (Bld) [Entitic vol] 9.2 fL 9.0 - 12.[address] [facility] Platelets (Bld) [#/Vol] 236 10*3/uL 150 - 400 k/uL [facility] RBC (Bld) [#/Vol] 3.35 10*6/uL Low 3.90 - 5.20 m/uL [facility] WBC (Bld) [#/Vol] 6.71 10*3/uL 3.70 - 11.00 k/u L [facility] Comprehensive metabolic 2000 panelon 02-12-2022 Albumin [Mass/Vol] 4.0 g/dL 3.9 - 4.9 g/dL [facility] ALP [Catalytic activity/Vol] 80 U/L 34 - 123 U/L [facility] ALT [Catalytic activity/Vol] 16 U/L 7 - 38 U/L [facility] Anion gap [Moles/Vol] 10 mmol/L 9 - 18 mmol/L [facility] AST [Catalytic activity/Vol] 21 U/L 13 - 35 U/L [facility] Bilirubin [Mass/Vol] 0.4 mg/dL 0.2 - 1.3 mg/dL [facility] Calcium [Mass/Vol] 10.1 mg/dL 8.5 - 10.2 mg/dL [facility] Chloride [Moles/Vol] 103 mmol/L 97 - 105 mmol/L [facility] CO2 [Moles/Vol] 26 mmol/L 22 - 30 mmol/L [facility] Creatinine [Mass/Vol] 0.87 mg/dL 0.58 - 0.96 mg/dL [facility] Estimated Glomerular Filtration Rate 73 mL/min/1.73m >=60 mL/min/1.73m [facility] Glucose [Mass/Vol] 141 mg/dL High 74 - 99 mg/dL [facility] Potassium [Moles/Vol] 4.5 mmol/L 3.7 - 5.1 mmol/L [facility] Protein [Mass/Vol] 6.8 g/dL 6.3 - 8.0 g/dL [facility] Sodium [Moles/Vol] 139 mmol/L 136 - 144 mmol/L [facility] Urea nitrogen [Mass/Vol] 13 mg/dL 7 - 21 mg/dL [facility] CBC AUTO DIFFon 02-11-2022 BASO # 0.0 103/ul Normal 0.0-0.1 [facility] Comment on above: Performed By: #### C BC #### [facility] [address] [place] [address] Dr. Kathleen Hidalgo Basophils/100 WBC (Bld) 0.4 % Normal 0.2-2.0 [facility] Comment on above: Performed By: #### C BC #### [facility] [address] [address] [address] Kathleen Hidalgo EO # 0.1 103/ul Normal 0.0-0.7 [facility] Comment on above: Performed By: #### C BC #### [facility] [address] [address] [address] Kathleen Hidalgo Eosinophils/100 WBC (Bld) 1.7 % Normal 0.9-7.0 [facility] Comment on above: Performed By: #### C BC #### [facility] [address] [place] [address] Dr. Kathleen Hidalgo Erythrocyte distribution width (RBC) [Ratio] 17.5 % Critically high 11.0-15.0 [facility] Comment on above: Performed By: #### C BC #### [facility] [address] [place] [address] Dr. Kathleen Hidalgo Hematocrit (Bld) [Volume fraction] 31.8 % Critically low 36.0-48.0 [facility] Comment on above: Performed By: #### C BC #### [facility] [address] [place] [address] Dr. Kathleen Hidalgo Hemoglobin (Bld) [Mass/Vol] 10.3 g/dL Critically low 12.0-16.0 [facility] Comment on above: Performed By: #### C BC #### [facility] [address] [place] [address] Dr. Kathleen Hidalgo IG # 0.04 10e3/ul Critically high 0.00-0.03 [facility] Comment on above: Performed By: #### C BC #### [facility] [address] [place] [address] Dr. Kathleen Hidalgo IG % 0.5 % Normal 0.0-0.5 [facility] Comment on above: Performed By: #### C BC #### [facility] [address] [place] [address] Dr. Kathleen Hidalgo LYMPH # 1.3 103/ul Normal 1.2-3.8 [facility] Comment on above: Performed By: #### C BC #### [facility] [address] [place] [address] Dr. Kathleen Hidalgo Lymphocytes/100 WBC (Bld) 16.2 % Critically low 20.5-60.0 [facility] Comment on above: Performed By: #### C BC #### [facility] [address] [place] [address] Dr. Kathleen Hidalgo MANUAL DIFF REQ NO Normal [facility] Comment on above: Performed By: #### C BC #### [facility] [address] [address] [address] Kathleen Hidalgo MCH (RBC) [Entitic mass] 31.5 pg Normal 26.7-34.0 [facility] Comment on above: Performed By: #### C BC #### [facility] [address] [place] [address] Dr. Kathleen Hidalgo MCHC (RBC) [Mass/Vol] 32.4 g/dL Normal 29.9-35.2 [facility] Comment on above: Performed By: #### C BC #### [facility] [address] [place] [address] Dr. Kathleen Hidalgo MCV (RBC) [Entitic vol] 97.2 fL Normal 81.0-99.0 [facility] Comment on above: Performed By: #### C BC #### [facility] [address] [place] [address] Dr. Kathleen Hidalgo MONO # 0.7 103/ul Normal 0.3-0.8 [facility] Comment on above: Performed By: #### C BC #### [facility] [address] [place] [address] Dr. Kathleen Hidalgo Monocytes/100 WBC (Bld) 8.0 % Normal 1.7-12.0 [facility] Comment on above: Performed By: #### C BC #### [facility] [address] [place] [address] Dr. Kathleen Hidalgo NEUT # 6.0 103/ul Normal 1.4-6.5 [facility] Comment on above: Performed By: #### C BC #### [facility] [address] [place] [address] Dr. Kathleen Hidalgo Neutrophils/100 WBC (Bld) 73.2 % Normal 43.0-75.0 [facility] Comment on above: Performed By: #### C BC #### [facility] [address] [place] [address] Dr. Kathleen Hidalgo Platelet mean volume (Bld) [Entitic vol] 9.5 fL Normal 9.5-13.5 [facility] Comment on above: Performed By: #### C BC #### [facility] [address] [place] [address] Dr. Kathleen Hidalog PLT 246 103/ul Normal 150-450 [facility] Comment on above: Performed By: #### C BC #### [facility] [address] [place] [address] Dr. Kathleen Hidalgo RBC 3.27 106/ul Critically low 4.20-5.40 [facility] Comment on above: Performed By: #### C BC #### [facility] [address] [place] [address] Dr. Kathleen Hidalgo WBC 8.2 103/ul Normal 4.0-11.0 [facility] Comment on above: Performed By: #### C BC #### [facility] [address] [place] [address] Dr. Kathleen Hidalgo CBC AUTO DIFFon 02-09-2022 BASO # 0.0 103/ul Normal 0.0-0.1 [facility] Comment on above: Performed By: #### C BC #### [facility] [address] [place] [address] Dr. Kathleen Hidalgo Basophils/100 WBC (Bld) 0.5 % Normal 0.2-2.0 [facility] Comment on above: Performed By: #### C BC #### [facility] [address] [place] [address] Dr. Kathleen Hidalgo EO # 0.2 103/ul Normal 0.0-0.7 [facility] Comment on above: Performed By: #### C BC #### [facility] [address] [place] [address] Dr. Kathleen Hidalgo Eosinophils/100 WBC (Bld) 2.7 % Normal 0.9-7.0 [facility] Comment on above: Performed By: #### C BC #### [facility] [address] [place] [address] Dr. Kathleen Hidalgo Erythrocyte distribution width (RBC) [Ratio] 17.3 % Critically high 11.0-15.0 [facility] Comment on above: Performed By: #### C BC #### [facility] [address] [place] [address] Dr. Kathleen Hidalgo Hematocrit (Bld) [Volume fraction] 31.2 % Critically low 36.0-48.0 [facility] Comment on above: Performed By: #### C BC #### [facility] [address] [place] [address] Dr. Kathleen Hidalgo Hemoglobin (Bld) [Mass/Vol] 10.1 g/dL Critically low 12.0-16.0 [facility] Comment on above: Performed By: #### C BC #### [facility] [address] [place] [address] Dr. Kathleen Hidalgo IG # 0.03 10e3/ul Normal 0.00-0.03 [facility] Comment on above: Performed By: #### C BC #### [facility] [address] [place] [address] Dr. Kathleen Hidalgo IG % 0.4 % Normal 0.0-0.5 [facility] Comment on above: Performed By: #### C BC #### [facility] [address] [place] [address] Dr. Kathleen Hidalgo LYMPH # 1.3 103/ul Normal 1.2-3.8 [facility] Comment on above: Performed By: #### C BC #### [facility] [address] [place] [address] Dr. Kathleen Hidalgo Lymphocytes/100 WBC (Bld) 17.6 % Critically low 20.5-60.0 [facility] Comment on above: Performed By: #### C BC #### [facility] [address] [place] [address] Dr. Kathleen Hidalgo MANUAL DIFF REQ NO Normal [facility] Comment on above: Performed By: #### C BC #### [facility] [address] [place] [address] Dr. Kathleen Hidalgo MCH (RBC) [Entitic mass] 31.4 pg Normal 26.7-34.0 [facility] Comment on above: Performed By: #### C BC #### [facility] [address] [address] [address] Kathleen Hidalgo MCHC (RBC) [Mass/Vol] 32.4 g/dL Normal 29.9-35.2 [facility] Comment on above: Performed By: #### C BC #### [facility] [address] [address] [address] Kathleen Hidalgo MCV (RBC) [Entitic vol] 96.9 fL Normal 81.0-99.0 [facility] Comment on above: Performed By: #### C BC #### [facility] [address] [address] [address] Kathleen Hidalgo MONO # 0.7 103/ul Normal 0.3-0.8 [facility] Comment on above: Performed By: #### C BC #### [facility] [address] [place] [address] Dr. Kathleen Hidalgo Monocytes/100 WBC (Bld) 9.3 % Normal 1.7-12.0 [facility] Comment on above: Performed By: #### C BC #### [facility] [address] [place] [address] Dr. Kathleen Hidalgo NEUT # 5.1 103/ul Normal 1.4-6.5 [facility] Comment on above: Performed By: #### C BC #### [facility] [address] [place] [address] Dr. Kathleen Hidalgo Neutrophils/100 WBC (Bld) 69.5 % Normal 43.0-75.0 [facility] Comment on above: Performed By: #### C BC #### [facility] [address] [place] [address] Dr. Kathleen Hidalgo Platelet mean volume (Bld) [Entitic vol] 9.3 fL Critically low 9.5-13.5 [facility] Comment on above: Performed By: #### C BC #### [facility] [address] [place] [address] Dr. Kathleen Hidalgo PLT 233 103/ul Normal 150-450 [facility] Comment on above: Performed By: #### C BC #### [facility] [address] [address] [address] Kathleen Hidalgo RBC 3.22 106/ul Critically low 4.20-5.40 [facility] Comment on above: Performed By: #### C BC #### [facility] [address] [place] [address] Dr. Kathleen Hidalgo WBC 7.3 103/ul Normal 4.0-11.0 [facility] Comment on above: Performed By: #### C BC #### [facility] [address] [place] [address] Dr. Kathleen Hidalgo GLYCOHEMOGLOBIN A1Con 2021 ADA RECOMMENDATION SEE BELOW Normal [facility] Comment on above: Result Comment: ADA RECOMMENDED LIMIT 4.0 - 6.0 ADA THERAPEUTIC TARGET < 7.0 ACTION SUGGESTED > 7.0 Performed By: #### A 1C #### [facility] [address] [place] [address] Dr. Kathleen Hidalgo Glucose [Mass/Vol] 169 mg/dL Normal [facility] Comment on above: Performed By: #### A 1C #### [facility] [address] [place] [address] Dr. Kathleen Hidalgo HbA1c (Bld) [Mass fraction] 7.5 % Critically high 4.5-6.2 [facility] Comment on above: Performed By: #### A 1C #### [facility] [address] [place] [address] Dr. Kathleen Hidalgo HEMOGLOBINon 02-08-2022 Hemoglobin (Bld) [Mass/Vol] 10.1 g/dL Critically low 12.0-16.0 [facility] Comment on above: Performed By: #### H GB ####[facility] [id number] [address]Dr. Kathleen Hidalgo TSHon 02-08-2022 TSH 1.633 uIU/mL Normal 0.358-3.740 [facility] Comment on above: Performed By: #### T SH #### [facility] [address] [place] [address] Dr. Kathleen Hidalgo CBC W Auto Differential pane l (Bld)on 02-05-2022 Basophils (Bld) [#/Vol] 0.04 10*3/uL <0.11 k/uL [facility] Basophils/100 WBC (Bld) 0.7 % [facility] Differential cell count method Nom (Bld) Auto [facility] Eosinophils (Bld) [#/Vol] 0.04 10*3/uL <0.46 k/uL [facility] Eosinophils/100 WBC (Bld) 0.7 % [facility] Erythrocyte distribution width (RBC) [Ratio] 17.1 % High 11.5 - 15.0 % [facility] Hematocrit (Bld) [Volume fraction] 30.8 % Low 36.0 - 46.0 % [facility] Hemoglobin (Bld) [Mass/Vol] 9.9 g/dL Low 11.5 - 15.5 g/dL [facility] Immature granulocytes (Bld) [#/Vol] 0.03 10*3/uL <0.10 k/uL [facility] Immature granulocytes/100 WBC (Bld) 0.5 % [facility] Lymphocytes (Bld) [#/Vol] 1.13 10*3/uL 1.00 - 4.00 k/uL [facility] Lymphocytes/100 WBC (Bld) 19.1 % [facility] MCH (RBC) [Entitic mass] 31.5 pg 26.0 - 34.[address] [facility] MCHC (RBC) [Mass/Vol] 32.1 g/dL 30.5 - 36.0 g/dL [facility] MCV (RBC) [Entitic vol] 98.1 fL 80.0 - 100.[address] [facility] Monocytes (Bld) [#/Vol] 0.58 10*3/uL <0.87 k/uL [facility] Monocytes/100 WBC (Bld) 9.8 % [facility] Neutrophils (Bld) [#/Vol] 4.11 10*3/uL 1.45 - 7.50 k/uL [facility] Neutrophils/100 WBC (Bld) 69.2 % [facility] Nucleated RBC (Bld) [#/Vol] <0.01 k/uL [facility] Nucleated RBC/100 WBC (Bld) [Ratio] 0.0 /[address] [facility] Platelet mean volume (Bld) [Entitic vol] 10.1 fL 9.0 - 12.[address] [facility] Platelets (Bld) [#/Vol] 267 10*3/uL 150 - 400 k/uL [facility] RBC (Bld) [#/Vol] 3.14 10*6/uL Low 3.90 - 5.20 m/uL [facility] WBC (Bld) [#/Vol] 5.93 10*3/uL 3.70 - 11.00 k/u L [facility] Comprehensive metabolic 2000 panelon 02-05-2022 Albumin [Mass/Vol] 3.7 g/dL Low 3.9 - 4.9 g/dL [facility] ALP [Catalytic activity/Vol] 94 U/L 34 - 123 U/L [facility] ALT [Catalytic activity/Vol] 11 U/L 7 - 38 U/L [facility] Anion gap [Moles/Vol] 12 mmol/L 9 - 18 mmol/L [facility] AST [Catalytic activity/Vol] 16 U/L 13 - 35 U/L [facility] Bilirubin [Mass/Vol] 0.3 mg/dL 0.2 - 1.3 mg/dL [facility] Calcium [Mass/Vol] 9.6 mg/dL 8.5 - 10.2 mg/dL [facility] Chloride [Moles/Vol] 103 mmol/L 97 - 105 mmol/L [facility] CO2 [Moles/Vol] 23 mmol/L 22 - 30 mmol/L [facility] Creatinine [Mass/Vol] 1.20 mg/dL High 0.58 - 0.96 mg/dL [facility] Estimated Glomerular Filtration Rate 49 mL/min/1.73m Low >=60 mL/min/1.73m [facility] Glucose [Mass/Vol] 255 mg/dL High 74 - 99 mg/dL [facility] Potassium [Moles/Vol] 3.4 mmol/L Low 3.7 - 5.1 mmol/L [facility] Protein [Mass/Vol] 6.4 g/dL 6.3 - 8.0 g/dL [facility] Sodium [Moles/Vol] 138 mmol/L 136 - 144 mmol/L [facility] Urea nitrogen [Mass/Vol] 30 mg/dL High 7 - 21 mg/dL [facility] CBC W Auto Differential pane l (Bld)on 01-15-2022 Basophils (Bld) [#/Vol] 0.03 10*3/uL <0.11 k/uL [facility] Basophils/100 WBC (Bld) 0.4 % [facility] Differential cell count method Nom (Bld) Auto [facility] Eosinophils (Bld) [#/Vol] 0.07 10*3/uL <0.46 k/uL [facility] Eosinophils/100 WBC (Bld) 1.0 % [facility] Erythrocyte distribution width (RBC) [Ratio] 15.7 % High 11.5 - 15.0 % [facility] Hematocrit (Bld) [Volume fraction] 34.1 % Low 36.0 - 46.0 % [facility] Hemoglobin (Bld) [Mass/Vol] 11.3 g/dL Low 11.5 - 15.5 g/dL [facility] Immature granulocytes (Bld) [#/Vol] 0.03 10*3/uL <0.10 k/uL [facility] Immature granulocytes/100 WBC (Bld) 0.4 % [facility] Lymphocytes (Bld) [#/Vol] 1.19 10*3/uL 1.00 - 4.00 k/uL [facility] Lymphocytes/100 WBC (Bld) 16.6 % [facility] MCH (RBC) [Entitic mass] 31.6 pg 26.0 - 34.[address] [facility] MCHC (RBC) [Mass/Vol] 33.1 g/dL 30.5 - 36.0 g/dL [facility] MCV (RBC) [Entitic vol] 95.3 fL 80.0 - 100.[address] [facility] Monocytes (Bld) [#/Vol] 0.78 10*3/uL <0.87 k/uL [facility] Monocytes/100 WBC (Bld) 10.9 % [facility] Neutrophils (Bld) [#/Vol] 5.08 10*3/uL 1.45 - 7.50 k/uL [facility] Neutrophils/100 WBC (Bld) 70.7 % [facility] Nucleated RBC (Bld) [#/Vol] <0.01 k/uL [facility] Nucleated RBC/100 WBC (Bld) [Ratio] 0.0 /[address] [facility] Platelet mean volume (Bld) [Entitic vol] 9.4 fL 9.0 - 12.[address] [facility] Platelets (Bld) [#/Vol] 246 10*3/uL 150 - 400 k/uL [facility] RBC (Bld) [#/Vol] 3.58 10*6/uL Low 3.90 - 5.20 m/uL [facility] WBC (Bld) [#/Vol] 7.18 10*3/uL 3.70 - 11.00 k/u L [facility] Comprehensive metabolic 2000 panelon 01-15-2022 Albumin [Mass/Vol] 4.2 g/dL 3.9 - 4.9 g/dL [facility] ALP [Catalytic activity/Vol] 108 U/L 34 - 123 U/L [facility] ALT [Catalytic activity/Vol] 13 U/L 7 - 38 U/L [facility] Anion gap [Moles/Vol] 11 mmol/L 9 - 18 mmol/L [facility] AST [Catalytic activity/Vol] 18 U/L 13 - 35 U/L [facility] Bilirubin [Mass/Vol] 0.4 mg/dL 0.2 - 1.3 mg/dL [facility] Calcium [Mass/Vol] 10.0 mg/dL 8.5 - 10.2 mg/dL [facility] Chloride [Moles/Vol] 101 mmol/L 97 - 105 mmol/L [facility] CO2 [Moles/Vol] 28 mmol/L 22 - 30 mmol/L [facility] Creatinine [Mass/Vol] 0.89 mg/dL 0.58 - 0.96 mg/dL [facility] Estimated Glomerular Filtration Rate 71 mL/min/1.73m >=60 mL/min/1.73m [facility] Glucose [Mass/Vol] 177 mg/dL High 74 - 99 mg/dL [facility] Potassium [Moles/Vol] 3.9 mmol/L 3.7 - 5.1 mmol/L [facility] Protein [Mass/Vol] 6.8 g/dL 6.3 - 8.0 g/dL [facility] Sodium [Moles/Vol] 140 mmol/L 136 - 144 mmol/L [facility] Urea nitrogen [Mass/Vol] 18 mg/dL 7 - 21 mg/dL [facility] CBC W Auto Differential pane l (Bld)on 12-25-2021 Basophils (Bld) [#/Vol] 0.04 10*3/uL <0.11 k/uL [facility] Basophils/100 WBC (Bld) 0.6 % [facility] Differential cell count method Nom (Bld) Auto [facility] Eosinophils (Bld) [#/Vol] 0.12 10*3/uL <0.46 k/uL [facility] Eosinophils/100 WBC (Bld) 1.9 % [facility] Erythrocyte distribution width (RBC) [Ratio] 13.7 % 11.5 - 15.0 % [facility] Hematocrit (Bld) [Volume fraction] 34.1 % Low 36.0 - 46.0 % [facility] Hemoglobin (Bld) [Mass/Vol] 11.6 g/dL 11.5 - 15.5 g/dL [facility] Immature granulocytes (Bld) [#/Vol] 0.03 10*3/uL <0.10 k/uL [facility] Immature granulocytes/100 WBC (Bld) 0.5 % [facility] Lymphocytes (Bld) [#/Vol] 1.23 10*3/uL 1.00 - 4.00 k/uL [facility] Lymphocytes/100 WBC (Bld) 19.7 % [facility] MCH (RBC) [Entitic mass] 31.9 pg 26.0 - 34.[address] [facility] MCHC (RBC) [Mass/Vol] 34.0 g/dL 30.5 - 36.0 g/dL [facility] MCV (RBC) [Entitic vol] 93.7 fL 80.0 - 100.[address] [facility] Monocytes (Bld) [#/Vol] 0.51 10*3/uL <0.87 k/uL [facility] Monocytes/100 WBC (Bld) 8.2 % [facility] Neutrophils (Bld) [#/Vol] 4.32 10*3/uL 1.45 - 7.50 k/uL [facility] Neutrophils/100 WBC (Bld) 69.1 % [facility] Nucleated RBC (Bld) [#/Vol] <0.01 k/uL [facility] Nucleated RBC/100 WBC (Bld) [Ratio] 0.0 /[address] [facility] Platelet mean volume (Bld) [Entitic vol] 9.7 fL 9.0 - 12.[address] [facility] Platelets (Bld) [#/Vol] 301 10*3/uL 150 - 400 k/uL [facility] RBC (Bld) [#/Vol] 3.64 10*6/uL Low 3.90 - 5.20 m/uL [facility] WBC (Bld) [#/Vol] 6.25 10*3/uL 3.70 - 11.00 k/u L [facility] metabolic 2000 panelon 12-25-2021 Albumin [Mass/Vol] 4.0 g/dL 3.9 - 4.9 g/dL [facility] ALP [Catalytic activity/Vol] 102 U/L 34 - 123 U/L [facility] ALT [Catalytic activity/Vol] 17 U/L 7 - 38 U/L [facility] Anion gap [Moles/Vol] 10 mmol/L 9 - 18 mmol/L [facility] AST [Catalytic activity/Vol] 19 U/L 13 - 35 U/L [facility] Bilirubin [Mass/Vol] 0.2 mg/dL 0.2 - 1.3 mg/dL [facility] Calcium [Mass/Vol] 9.9 mg/dL 8.5 - 10.2 mg/dL [facility] Chloride [Moles/Vol] 101 mmol/L 97 - 105 mmol/L [facility] CO2 [Moles/Vol] 27 mmol/L 22 - 30 mmol/L [facility] Creatinine [Mass/Vol] 0.92 mg/dL 0.58 - 0.96 mg/dL [facility] Estimated Glomerular Filtration Rate 68 mL/min/1.73m >=60 mL/min/1.73m [facility] Glucose [Mass/Vol] 217 mg/dL High 74 - 99 mg/dL [facility] Potassium [Moles/Vol] 3.4 mmol/L Low 3.7 - 5.1 mmol/L [facility] Protein [Mass/Vol] 6.5 g/dL 6.3 - 8.0 g/dL [facility] Sodium [Moles/Vol] 138 mmol/L 136 - 144 mmol/L [facility] Urea nitrogen [Mass/Vol] 24 mg/dL High 7 - 21 mg/dL [facility] metabolic 2000 panelon 12-17-2021 Albumin [Mass/Vol] 3.8 g/dL Low 3.9 - 4.9 g/dL [facility] ALP [Catalytic activity/Vol] 118 U/L 34 - 123 U/L [facility] ALT [Catalytic activity/Vol] 16 U/L 7 - 38 U/L [facility] Anion gap [Moles/Vol] 9 mmol/L 9 - 18 mmol/L [facility] AST [Catalytic activity/Vol] 17 U/L 13 - 35 U/L [facility] Bilirubin [Mass/Vol] 0.3 mg/dL 0.2 - 1.3 mg/dL [facility] Calcium [Mass/Vol] 9.7 mg/dL 8.5 - 10.2 mg/dL [facility] Chloride [Moles/Vol] 101 mmol/L 97 - 105 mmol/L [facility] CO2 [Moles/Vol] 28 mmol/L 22 - 30 mmol/L [facility] Creatinine [Mass/Vol] 0.96 mg/dL 0.58 - 0.96 mg/dL [facility] Estimated Glomerular Filtration Rate 65 mL/min/1.73m >=60 mL/min/1.73m [facility] Glucose [Mass/Vol] 147 mg/dL High 74 - 99 mg/dL [facility] Potassium [Moles/Vol] 3.7 mmol/L 3.7 - 5.1 mmol/L [facility] Protein [Mass/Vol] 6.3 g/dL 6.3 - 8.0 g/dL [facility] Sodium [Moles/Vol] 138 mmol/L 136 - 144 mmol/L [facility] Urea nitrogen [Mass/Vol] 20 mg/dL 7 - 21 mg/dL [facility] Comprehensive metabolic 2000 panelon 12-14-2021 Albumin [Mass/Vol] 3.8 g/dL Low 3.9 - 4.9 g/dL [facility] ALP [Catalytic activity/Vol] 136 U/L High 34 - 123 U/L [facility] ALT [Catalytic activity/Vol] 14 U/L 7 - 38 U/L [facility] Anion gap [Moles/Vol] 8 mmol/L Low 9 - 18 mmol/L [facility] AST [Catalytic activity/Vol] 15 U/L 13 - 35 U/L [facility] Bilirubin [Mass/Vol] 0.2 mg/dL 0.2 - 1.3 mg/dL [facility] Calcium [Mass/Vol] 9.6 mg/dL 8.5 - 10.2 mg/dL [facility] Chloride [Moles/Vol] 104 mmol/L 97 - 105 mmol/L [facility] CO2 [Moles/Vol] 27 mmol/L 22 - 30 mmol/L [facility] Creatinine [Mass/Vol] 1.41 mg/dL High 0.58 - 0.96 mg/dL [facility] Estimated Glomerular Filtration Rate 41 mL/min/1.73m Low >=60 mL/min/1.73m [facility] Glucose [Mass/Vol] 239 mg/dL High 74 - 99 mg/dL [facility] Potassium [Moles/Vol] 3.8 mmol/L 3.7 - 5.1 mmol/L [facility] Protein [Mass/Vol] 6.3 g/dL 6.3 - 8.0 g/dL [facility] Sodium [Moles/Vol] 139 mmol/L 136 - 144 mmol/L [facility] Urea nitrogen [Mass/Vol] 31 mg/dL High 7 - 21 mg/dL [facility] CBC W Auto Differential pane l (Bld)on 12-04-2021 Abs Immature Gran 0.03 k/uL <0.10 k/uL [facility] Basophils (Bld) [#/Vol] <0.11 k/uL [facility] Basophils/100 WBC (Bld) 0.3 % [facility] Differential cell count method Nom (Bld) Auto [facility] Eosinophils (Bld) [#/Vol] 0.08 10*3/uL <0.46 k/uL [facility] Eosinophils/100 WBC (Bld) 1.3 % [facility] Erythrocyte distribution width (RBC) [Ratio] 13.3 % 11.5 - 15.0 % [facility] Hematocrit (Bld) [Volume fraction] 39.4 % 36.0 - 46.0 % [facility] Hemoglobin (Bld) [Mass/Vol] 13.3 g/dL 11.5 - 15.5 g/dL [facility] Immature Gran % 0.5 % [facility] Lymphocytes (Bld) [#/Vol] 1.48 10*3/uL 1.00 - 4.00 k/uL [facility] Lymphocytes/100 WBC (Bld) 24.2 % [facility] MCH (RBC) [Entitic mass] 31.5 pg 26.0 - 34.[address] [facility] MCHC (RBC) [Mass/Vol] 33.8 g/dL 30.5 - 36.0 g/dL [facility] MCV (RBC) [Entitic vol] 93.4 fL 80.0 - 100.[address] [facility] Monocytes (Bld) [#/Vol] 0.49 10*3/uL <0.87 k/uL [facility] Monocytes/100 WBC (Bld) 8.0 % [facility] Neutrophils (Bld) [#/Vol] 4.02 10*3/uL 1.45 - 7.50 k/uL [facility] Neutrophils/100 WBC (Bld) 65.7 % [facility] Nucleated RBC (Bld) [#/Vol] <0.01 k/uL [facility] Nucleated RBC/100 WBC (Bld) [Ratio] 0.0 /[address] [facility] Platelet mean volume (Bld) [Entitic vol] 10.1 fL 9.0 - 12.[address] [facility] Platelets (Bld) [#/Vol] 212 10*3/uL 150 - 400 k/uL [facility] RBC (Bld) [#/Vol] 4.22 10*6/uL 3.90 - 5.20 m/uL [facility] WBC (Bld) [#/Vol] 6.12 10*3/uL 3.70 - 11.00 k/u L [facility] Comprehensive metabolic 2000 panelon 12-04-2021 Albumin [Mass/Vol] 4.2 g/dL 3.9 - 4.9 g/dL [facility] ALP [Catalytic activity/Vol] 106 U/L 34 - 123 U/L [facility] ALT [Catalytic activity/Vol] 17 U/L 7 - 38 U/L [facility] Anion gap [Moles/Vol] 9 mmol/L 9 - 18 mmol/L [facility] AST [Catalytic activity/Vol] 17 U/L 13 - 35 U/L [facility] Bilirubin [Mass/Vol] 0.3 mg/dL 0.2 - 1.3 mg/dL [facility] Calcium [Mass/Vol] 10.2 mg/dL 8.5 - 10.2 mg/dL [facility] Chloride [Moles/Vol] 100 mmol/L 97 - 105 mmol/L [facility] CO2 [Moles/Vol] 29 mmol/L 22 - 30 mmol/L [facility] Creatinine [Mass/Vol] 0.93 mg/dL 0.58 - 0.96 mg/dL [facility] Estimated Glomerular Filtration Rate 67 mL/min/1.73m >=60 mL/min/1.73m [facility] Glucose [Mass/Vol] 132 mg/dL High 74 - 99 mg/dL [facility] Potassium [Moles/Vol] 3.8 mmol/L 3.7 - 5.1 mmol/L [facility] Protein [Mass/Vol] 7.0 g/dL 6.3 - 8.0 g/dL [facility] Sodium [Moles/Vol] 138 mmol/L 136 - 144 mmol/L [facility] Urea nitrogen [Mass/Vol] 23 mg/dL High 7 - 21 mg/dL [facility] BONE WHOLE BODYon 022 [place] BONE WHOLE BODY * * *Final Report* * * DATE OF EXAM: Nov 27 2021 6:49PM [facility] 0014 - [place] BONE WHOLE BODY / PROCEDURE REASON: multiple diagnoses * * * * Physician Interpretation * * * * WHOLE BODY BONE SCAN CLINICAL HISTORY: Breast cancer. TECHNIQUE: 23.4 mCi technetium 99m MDP IV. Planar images of the whole body obtained in anterior and posterior views at about 3 hours post injection. static images of head, were also obtained. COMPARISON: Prior bone scan none CORRELATION: CT scan chest, 10/30/2021 abdomen and pelvis dated 11/20/2021 RESULT: whole body and static images show no suspicious foci of abnormal uptake to suggest osseous metastases. Increased activity in the left shoulder, sternoclavicular joints, cervical spine, thoracolumbar spine, SI joints, knees, ankles and feet are likely degenerative/arthritic changes. Right shoulder prosthesis. IMPRESSION: No suspicious foci of activity. No scintigraphic evidence of osseous metastases. Likely degenerative/arthritic changes as described. Business Technology Professor: PSCB Transcribe Date/Time: Nov 28 2021 10:04A Dictated by : AYAAN MIRELES MD This examination was interpreted and the report reviewed and electronically signed by: AYAAN MIRELES MD on Nov 28 2021 10:09AM EST [id number] Normal [facility] metabolic 2000 panelon 11-19-2021 Albumin [Mass/Vol] 4.3 g/dL 3.9 - 4.9 g/dL [facility] ALP [Catalytic activity/Vol] 89 U/L 34 - 123 U/L [facility] ALT [Catalytic activity/Vol] 25 U/L 7 - 38 U/L [facility] Anion gap [Moles/Vol] 12 mmol/L 9 - 18 mmol/L [facility] AST [Catalytic activity/Vol] 25 U/L 13 - 35 U/L [facility] Bilirubin [Mass/Vol] 0.4 mg/dL 0.2 - 1.3 mg/dL [facility] Calcium [Mass/Vol] 10.2 mg/dL 8.5 - 10.2 mg/dL [facility] Chloride [Moles/Vol] 103 mmol/L 97 - 105 mmol/L [facility] CO2 [Moles/Vol] 25 mmol/L 22 - 30 mmol/L [facility] Creatinine [Mass/Vol] 1.04 mg/dL High 0.58 - 0.96 mg/dL [facility] Estimated Glomerular Filtration Rate 59 mL/min/1.73m Low >=60 mL/min/1.73m [facility] Glucose [Mass/Vol] 93 mg/dL 74 - 99 mg/dL [facility] Potassium [Moles/Vol] 3.7 mmol/L 3.7 - 5.1 mmol/L [facility] Protein [Mass/Vol] 7.1 g/dL 6.3 - 8.0 g/dL [facility] Sodium [Moles/Vol] 140 mmol/L 136 - 144 mmol/L [facility] Urea nitrogen [Mass/Vol] 23 mg/dL High 7 - 21 mg/dL [facility] CBC W Auto Differential pane l (Bld)on 11-18-2021 Abs Immature Gran 0.03 k/uL <0.10 k/uL [facility] Basophils (Bld) [#/Vol] <0.11 k/uL [facility] Basophils/100 WBC (Bld) 0.3 % [facility] Differential cell count method Nom (Bld) Auto [facility] Eosinophils (Bld) [#/Vol] 0.08 10*3/uL <0.46 k/uL [facility] Eosinophils/100 WBC (Bld) 1.3 % [facility] Erythrocyte distribution width (RBC) [Ratio] 13.3 % 11.5 - 15.0 % [facility] Hematocrit (Bld) [Volume fraction] 39.7 % 36.0 - 46.0 % [facility] Hemoglobin (Bld) [Mass/Vol] 13.4 g/dL 11.5 - 15.5 g/dL [facility] Immature Gran % 0.5 % [facility] Lymphocytes (Bld) [#/Vol] 1.59 10*3/uL 1.00 - 4.00 k/uL [facility] Lymphocytes/100 WBC (Bld) 25.0 % [facility] MCH (RBC) [Entitic mass] 31.7 pg 26.0 - 34.[address] [facility] MCHC (RBC) [Mass/Vol] 33.8 g/dL 30.5 - 36.0 g/dL [facility] MCV (RBC) [Entitic vol] 93.9 fL 80.0 - 100.[address] [facility] Monocytes (Bld) [#/Vol] 0.59 10*3/uL <0.87 k/uL [facility] Monocytes/100 WBC (Bld) 9.3 % [facility] Neutrophils (Bld) [#/Vol] 4.06 10*3/uL 1.45 - 7.50 k/uL [facility] Neutrophils/100 WBC (Bld) 63.6 % [facility] Nucleated RBC (Bld) [#/Vol] <0.01 k/uL [facility] Nucleated RBC/100 WBC (Bld) [Ratio] 0.0 /[address] [facility] Platelet mean volume (Bld) [Entitic vol] 10.5 fL 9.0 - 12.[address] [facility] Platelets (Bld) [#/Vol] 209 10*3/uL 150 - 400 k/uL [facility] RBC (Bld) [#/Vol] 4.23 10*6/uL 3.90 - 5.20 m/uL [facility] WBC (Bld) [#/Vol] 6.37 10*3/uL 3.70 - 11.00 k/u L [facility] DIAGNOSTIC RTon 11-13-19 22 [facility] DIAGNOSTIC RT * * *Final Report* * * DATE OF EXAM: Nov 12 2021 8:19AM W [id number] - [facility] DIAGNOSTIC RT / PROCEDURE REASON: multiple diagnoses * * * * Physician Interpretation * * * * RESULT: #[id number] - [facility] DIAGNOSTIC RT #[id number] - [facility] US BREAST LTD RT UNILATERAL RIGHT DIGITAL DIAGNOSTIC MAMMOGRAM WITH CAD: 11/12/2021 HISTORY: Known rt breast CA. Patient with outside diagnosis of RIGHT breast cancer metastatic to right axillary lymph nodes. Mammogram and ultrasound to document clip placement and visibility of the clips. known rt breast cancer. RESULT: TECHNIQUE: The study was acquired using full field digital technology and interpreted from soft copy. Current study was also evaluated with a Computer Aided Detection (CAD). Comparison is made to exams dated: 11/10/2021 breast [facility], 10/02/2021 ultrasound biopsy, 09/30/2021 ultrasound, and 09/30/2021 mammogram. There are scattered fibroglandular elements in right breast. There is an irregular mass in the right breast upper outer aspect middle depth. This is demonstrated by prior biopsy. There is a biopsy clip associated with the mass. There also are multiple oval high density axillary nodes in the right breast posterior depth upper region seen on the mediolateral oblique view only. These are demonstrated by prior biopsy. There is a biopsy clip associated with the axillary nodes. No other significant masses or calcifications are seen in the breast. IMPRESSION: INCOMPLETE: NEEDS ADDITIONAL IMAGING EVALUATION The irregular mass in the right breast upper outer aspect middle depth is consistent with the known carcinoma and is indeterminate. An ultrasound is recommended. The multiple oval high density axillary nodes in the right breast posterior depth upper region seen on the mediolateral oblique view only are indeterminate. An ultrasound is recommended. LIMITED ULTRASOUND OF RIGHT BREAST: 11/12/2021 RESULT: Comparison is made to exams dated: 11/10/2021 breast [facility], 10/02/2021 ultrasound biopsy, 09/30/2021 ultrasound, and 09/30/2021 mammogram. Color flow and real-time ultrasound of the right breast were performed. There is 2.2 cm x 2.2 cm x 3 cm enlarged right axillary lymph node. This enlarged right axillary lymph node displays no fatty hilum. This correlates with mammography findings and the previous biopsy. There is an associated biopsy clip. Color flow imaging demonstrates that there is vascularity present. There are at least two additional right axillary lymph nodes that demonstrate abnormal morphology. There also is 3.1 cm x 2 cm x 1.8 cm irregular mass with an angular margin in the right breast at 10 o'clock posterior depth 8 cm from the nipple. This irregular mass is hypoechoic with posterior acoustic shadowing. This correlates with mammography findings and the previous biopsy. Color flow imaging demonstrates that there is vascularity present. Biopsy clip not identified by ultrasound. IMPRESSION: KNOWN BIOPSY PROVEN MALIGNANCY The 2.2 cm x 2.2 cm x 3 cm enlarged right axillary lymph node is consistent with the known carcinoma and is a known biopsy positive for malignancy. A surgical consult is recommended. The 3.1 cm x 2 cm x 1.8 cm irregular mass in the right breast at 10 o'clock posterior depth is a known biopsy positive for malignancy. A surgical consult is recommended. SUMMARY: Patient is scheduled to see Dr. Mercedes today. Slime Aponte M.D. pt/elva:11/12/2021 09:25:51 Multiple national specialty organizations have released breast cancer screening guidelines for women at average risk for developing breast cancer - guidelines that are based on both evidence and opinion, yet differ on when to start and how often to screen for breast cancer. With representation from Breast Imaging, Internal Medicine, Women's Health, Family Medicine, and Medical/Surgical Oncology, the [facility] has carefully reviewed the data and reached the following consensus: 1) All women should engage in shared decision-making with their providers to decide when to start and how often to screen; 2) All women should have the opportunity to start screening mammography at age 40; 3) For women ages 45-55, we recommend annual screening mammograms; 4) For women ages 55 and over, we support both the transition from an annual to a biennial interval if this aligns more with patient's values and preferences, or continuation with annual screening; 5) All women should discuss with their providers when to stop screening mammograms. Perioperative Assistant(s): Kristal Worrell [facility] OVERALL STUDY BIRADS: 6 Known biopsy proven malignancy Business Technology Professor: Elva Transcribe Date/Time: Nov 12 2021 8:09A Dictated by : SLIME APONTE MD This examination was interpreted and the report reviewed and electronically signed by: SLIME APONTE MD on Nov 12 2021 9:25AM EST [id number] Normal [facility] US BREAST LTD RTon 11-12 [facility] BREAST LTD RT * * *Final Report* * * DATE OF EXAM: Nov 12 2021 9:22AM [facility] 0594 - [facility] BREAST [facility] RT / PROCEDURE REASON: multiple diagnoses * * * * Physician Interpretation * * * * RESULT: #[id number] - [facility] DIAGNOSTIC RT #[id number] - [facility] US BREAST LTD RT UNILATERAL RIGHT DIGITAL DIAGNOSTIC MAMMOGRAM WITH CAD: 11/12/2021 HISTORY: Known rt breast CA. Patient with outside diagnosis of RIGHT breast cancer metastatic to right axillary lymph nodes. Mammogram and ultrasound to document clip placement and visibility of the clips. known rt breast cancer. RESULT: TECHNIQUE: The study was acquired using full field digital technology and interpreted from soft copy. Current study was also evaluated with a Computer Aided Detection (CAD). Comparison is made to exams dated: 11/10/2021 [facility], 10/02/2021 ultrasound biopsy, 09/30/2021 ultrasound, and 09/30/2021 mammogram. There are scattered fibroglandular elements in right breast. There is an irregular mass in the right breast upper outer aspect middle depth. This is demonstrated by prior biopsy. There is a biopsy clip associated with the mass. There also are multiple oval high density axillary nodes in the right breast posterior depth upper region seen on the mediolateral oblique view only. These are demonstrated by prior biopsy. There is a biopsy clip associated with the axillary nodes. No other significant masses or calcifications are seen in the breast. IMPRESSION: INCOMPLETE: NEEDS ADDITIONAL IMAGING EVALUATION The irregular mass in the right breast upper outer aspect middle depth is consistent with the known carcinoma and is indeterminate. An ultrasound is recommended. The multiple oval high density axillary nodes in the right breast posterior depth upper region seen on the mediolateral oblique view only are indeterminate. An ultrasound is recommended. LIMITED ULTRASOUND OF RIGHT BREAST: 11/12/2021 RESULT: Comparison is made to exams dated: 11/10/2021 breast [facility], 10/02/2021 ultrasound biopsy, 09/30/2021 ultrasound, and 09/30/2021 mammogram. Color flow and real-time ultrasound of the right breast were performed. There is 2.2 cm x 2.2 cm x 3 cm enlarged right axillary lymph node. This enlarged right axillary lymph node displays no fatty hilum. This correlates with mammography findings and the previous biopsy. There is an associated biopsy clip. Color flow imaging demonstrates that there is vascularity present. There are at least two additional right axillary lymph nodes that demonstrate abnormal morphology. There also is 3.1 cm x 2 cm x 1.8 cm irregular mass with an angular margin in the right breast at 10 o'clock posterior depth 8 cm from the nipple. This irregular mass is hypoechoic with posterior acoustic shadowing. This correlates with mammography findings and the previous biopsy. Color flow imaging demonstrates that there is vascularity present. Biopsy clip not identified by ultrasound. IMPRESSION: KNOWN BIOPSY PROVEN MALIGNANCY The 2.2 cm x 2.2 cm x 3 cm enlarged right axillary lymph node is consistent with the known carcinoma and is a known biopsy positive for malignancy. A surgical consult is recommended. The 3.1 cm x 2 cm x 1.8 cm irregular mass in the right breast at 10 o'clock posterior depth is a known biopsy positive for malignancy. A surgical consult is recommended. SUMMARY: Patient is scheduled to see Dr. Mercedes today. Slime Aponte M.D. pt/elva:11/12/2021 09:25:51 Multiple national specialty organizations have released breast cancer screening guidelines for women at average risk for developing breast cancer - guidelines that are based on both evidence and opinion, yet differ on when to start and how often to screen for breast cancer. With representation from Breast Imaging, Internal Medicine, Women's Health, Family Medicine, and Medical/Surgical Oncology, the [facility] has carefully reviewed the data and reached the following consensus: 1) All women should engage in shared decision-making with their providers to decide when to start and how often to screen; 2) All women should have the opportunity to start screening mammography at age 40; 3) For women ages 45-55, we recommend annual screening mammograms; 4) For women ages 55 and over, we support both the transition from an annual to a biennial interval if this aligns more with patient's values and preferences, or continuation with annual screening; 5) All women should discuss with their providers when to stop screening mammograms. Perioperative Assistant(s): Kristal Worrell [facility] OVERALL STUDY BIRADS: 6 Known biopsy proven malignancy Business Technology Professor: Elva Transcribe Date/Time: Nov 12 2021 8:09A Dictated by : SLIME APONTE MD This examination was interpreted and the report reviewed and electronically signed by: SLIME APONTE MD on Nov 12 2021 9:25AM EST [id number] Normal [facility] US BREAST LTD RTon [facility] ALLIED HEALTHon 11-10-2021 ALLIED HEALTH HNO ID: [id number] Author: RT Vikki(R) Service: Radiology Author Type: Technologist Type: Allied Health Filed: 11/10/2021 4:12 PM Note Text: Radiology Service Progress Note DATE OF SERVICE: November 10, 2021 TIME: 4:08 PM PATIENT IDENTITY VERIFICATION COMPLETED USING TWO (2) STANDARD IDENTIFIERS: Name and Date of confirmed by patient verbally and Name and Date of confirmed by identification band. FALL SCREENING: Has the patient had 2 falls in the last year or 1 fall with injury or currently using an Ambulatory Assistive Device (Walker, Cane, Wheelchair, Crutches, etc.)? No PATIENT GENDER DATA: Female. status: : No status: NO. PATIENT RELEVANT IMPLANT DATA REVIEWED: Yes ALLERGIES: Reviewed and unchanged CONTRAST ALLERGY: NO. EXAM: MRI - CONTRAST TYPE: GROUP II PERIPHERAL IV DATA: Ambulatory: A peripheral IV was started in the Left antecubital site with a Angio cath: 22 gauge. RADIOLOGY DEPARTMENT: MR; Exam(s) Completed: Chest: Breast SIGNATURE: RT Vikki(R) PATIENT NAME: Kiah Cortes DATE: November 10, 2021 TIME: 4:08 PM [facility] MRI BREAST WO/W IVCON BILon 11-10-2021 MRI BREAST WO/W IVCON AUSTEN * * *Final Report* * * DATE OF EXAM: Nov 10 2021 5:49PM [facility] 0773 - MRI BREAST WO/W IVCON AUSTEN / PROCEDURE REASON: multiple diagnoses * * * * Physician Interpretation * * * * #[id number] - MRI BREAST WO/W IVCON [place]USTEN BREAST MRI OF BOTH BREASTS: 11/10/2021 HISTORY: Multiple Diagnoses/ The patient has newly diagnosed malignancy in the right breast, with workup and biopsy performed at outside facility. She presents for breast MRI in order to assess extent of disease, and to evaluate for contralateral occult malignancy. Outside ultrasound report states an irregular mass measuring 2.9 x 2.5 x 2.3cm was seen in the right breast at 10:00 8CMFN. Suspicious nodes were seen in the axilla. Biopsy of the right breast mass and right axilla was performed. Biopsy clip similar to a stoplight clip is present at the posterior aspect of right breast mass. RESULT: Comparison is made to exams dated: 09/30/2021 mammogram, 09/30/2021 ultrasound, and 10/02/2021 ultrasound biopsy. Interpretation of this MRI was correlated with available mammograms. Informed consent was obtained from the patient. MRI images were obtained at 1 mm intervals with a dedicated breast MRI. Pre and post contrast images were obtained at 1 minute intervals for 6 minutes. The patient was studied using the Sentinelle dedicated breast coil in the Siemens 1.5 Serenity scanner. Initial axial STIR imaging was carried out followed by axial T1-weighted GRE imaging both before and after IV administration of 20ml of Dotarem. Subsequently, subtraction imaging and 3-D reconstruction were completed on an independent workstation. An additional 4 minute high resolution sequence was performed after the first two 1 minute post-contrast sequences. FINDINGS: There is mild background parenchymal enhancement. Right Breast: There is an irregular enhancing mass with clip artifact in the upper outer quadrant (Agfa subtraction image 103). This correlates with biopsy proven malignancy at 10:00 7CMFN and measures 3.6 x 3.1 x 2.5cm. The mass demonstrates suspicious kinetics with rapid initial washout delayed pattern enhancement. There are scattered round enhancing foci throughout the breast. These are either subthreshold at 50% or demonstrate progressive pattern enhancement. Overall, these findings are similar in appearance/morphology to scattered enhancing foci in the other breast and they are considered benign background. There are 3-4 enlarged lymph nodes in the right axilla. One of these correlates with previous biopsy and contains clip artifact. Left Breast: There is artifact in the upper inner quadrant related to chemotherapy port. There are no suspicious enhancing masses or areas of nonmass enhancement. There are scattered round enhancing foci throughout the breast. These are either subthreshold at 50% or demonstrate progressive pattern enhancement. Overall, these findings are similar in appearance/morphology to scattered enhancing foci in the other breast and they are considered benign background. The imaged left axilla is unremarkable. IMPRESSION: KNOWN BIOPSY PROVEN MALIGNANCY Right Breast: Birads 6 - Irregular enhancing mass with clip artifact in the upper outer quadrant, correlating with biopsy proven malignancy at 10:00 7CMFN. Mass measures 3.6 x 3.1 x 2.5cm on MR. There are no additional suspicious enhancing findings. - 3-4 abnormal lymph nodes in the right axilla. One of these contains biopsy clip artifact and correlates with biopsy proven axillary metastasis. - Surgical/oncologic management is recommended. Left Breast: Birads 2 - No suspicious enhancing findings. Mana olson/elva:11/11/2021 12:01:09 Perioperative Assistant(s): Jonah Kamara RT(R)(M), [facility] MRI BI-RADS: 6 Known biopsy proven malignancy Multiple national specialty organizations have released breast cancer screening guidelines for women at average risk for developing breast cancer - guidelines that are based on both evidence and opinion, yet differ on when to start and how often to screen for breast cancer. With representation from Breast Imaging, Internal Medicine, Women's Health, Family Medicine, and Medical/Surgical Oncology, the [facility] has carefully reviewed the data and reached the following consensus: 1) All women should engage in shared decision-making with their providers to decide when to start and how often to screen; 2) All women should have the opportunity to start screening mammography at age 40; 3) For women ages 45-55, we recommend annual screening mammograms; 4) For women ages 55 and over, we support both the transition from an annual to a biennial interval if this aligns more with patient's values and preferences, or continuation with annual screening; 5) All women should discuss with their providers when to stop screening mammograms. Business Technology Professor: Elva Transcribe Date/Time (more content not included)... Normal [facility] BRIEF OP NOTon 11-05-2021 BRIEF OP NOT HNO ID: [id number] Author: Lexie Freeman MD Service: Radiology Author Type: Physician Type: Brief Op Note Filed: 11/05/2021 12:02 PM Note Text: BRIEF OPERATIVE / PROCEDURE NOTE LOG ID: [id number] SURGERY/PROCEDURE DATE: 11/05/2021 INCISION/PROCEDURE START TIME: 11:19 AM INCISION CLOSE/PROCEDURE END TIME: 11:55 AM SURGEON(S)/PROCEDURALIS T(S) AND NOVELTY PRINTING MACHINE OPERATOR(S): Surgeon(s) and Role: * Lexie Freeman MD - Primary No Additional Staff SURGERY/PROCEDURE(S): PORT INSERTION ANESTHESIA: Procedural Sedation FINDINGS: LEFT IJ 8 F GROSHONG POWER PORT PLACED, TIP CAVOATRIAL JUNCTION ESTIMATED BLOOD LOSS: 5 mls SPECIMENS: None COMPLICATIONS: None PRE-OP/PRE-PROCEDURE DIAGNOSIS: BREAST CANCER POST-OP/POST-PROCEDURE DIAGNOSIS: Same as Preop SIGNATURE: Lexie Freeman MD PATIENT NAME: Kiah Cortes DATE: November 05, 2021 TIME: 12:01 PM [facility] HISTORY PHYSICALon 2 HISTORY PHYSICAL HNO ID: [id number] Author: Lexie Freeman MD Service: Radiology Author Type: Physician Type: HANDP Filed: 11/05/2021 10:56 AM Note Text: RADIOLOGY PROCEDURAL SEDATION HISTORY AND PHYSICAL EXAM SERVICE DATE: 11/05/2021 SERVICE TIME: 10:55 AM Subjective HPI: This is a 66 year old female who presents with BREAST CANCER REQUIRING CHEMOTHERAPY PROCEDURE SCHEDULED: Procedure(s): INSERTION PORT VENOUS ACCESS ADULT (Pending) RADIOLOGY ORDER PLACED: PAST ANESTHESIA HISTORY: No history of adverse event PAST MEDICAL HISTORY Diagnosis Date Asthma Breast cancer (HCC) right breast Fibromyalgia HTN (hypertension) Migraine Obesity PAST SURGICAL HISTORY Procedure Laterality Date APPENDECTOMY BX OF BREAST; INCISIONAL Right PAST SURGICAL HISTORY OF Rt Shoulder PAST SURGICAL HISTORY OF Rt knee tendons PAST SURGICAL HISTORY OF Right shoulder tendons Prior to Admission medications as of 11/05/21 1039 Medication Sig Last Dose Taking atorvastatin (LIPITOR) 40 mg tablet Take 40 mg by mouth once daily. 11/05/2021 Yes loratadine (CLARITIN) 10 mg tablet Take 10 mg by mouth once daily. 11/05/2021 Yes metFORMIN (GLUCOPHAGE) 1,000 mg tablet Metformin Active 1000 MG PO Every morning May 04, 2021 3:24pm 11/04/2021 Yes carvedilol (COREG) 25 mg tablet Take 25 mg by mouth twice daily. 11/05/2021 Yes amLODIPine (NORVASC) 10 mg tablet Take 10 mg by mouth once daily. 11/05/2021 Yes levothyroxine sodium (LEVOTHYROXINE ORAL) Take by mouth. 11/05/2021 Yes losartan (COZAAR) 100 mg tablet Take 100 mg by mouth once daily. 11/05/2021 Yes rOPINIRole (REQUIP) 0.25 mg tablet Take 0.25 mg by mouth three times daily. 11/04/2021 Yes acetaminophen (TYLENOL) 325 mg tablet Take 650 mg by mouth every 6 hours as needed. Unknown meloxicam (MOBIC) 15 mg tablet Take 15 mg by mouth once daily. Patient not taking: No sig reported Unknown semaglutide (OZEMPIC) 0.25 mg or 0.5 mg(2 mg/1.5 mL) pen injector Inject 0.25 mg subcutaneously one time a week. Patient not taking: Reported on 10/21/2021 traMADol (ULTRAM) 50 mg tablet Take 50 mg by mouth every 6 hours as needed for pain. Patient not taking: Reported on 10/21/2021 ALLERGIES No Known Allergies Objective PHYSICAL EXAM: The remainder of the physical exam is noncontributory. GENERAL: Alert, no distress, cooperative, Obese AIRWAY: Airway Visualization of Uvula: Yes Mouth opening greater than 2 fingerbreadths: Yes Neck Full Range of Motion: Yes LUNGS: Lungs clear to auscultation, Good diaphragmatic excursion CARDIAC: Normal S1 and S2; no rubs, murmurs, or gallops Assessment/Plan ASA Class: ASA Class:: Patient with severe systemic disease Provisional Diagnosis/Treatment Plan: PORT INSERTION SEDATION GOAL: Moderate SIGNATURE: Lexie Freeman MD PATIENT NAME: Kiah Cortes DATE: November 05, 2021 TIME: 10:55 AM [facility] IR FLU GD JC CVA PLACEon IR FLU GD JC CVA PLACE * * *Final Report* * * DATE OF EXAM: Nov 05 2021 11:57AM [facility] [id number] - IR FLU GD JC CVA PLACE / PROCEDURE REASON: Malignant neoplasm of upper-outer quadrant of right breast in female, estrogen r * * * * Physician Interpretation * * * * PROCEDURE: VENOUS PORT PLACEMENT Procedural Personnel Attending physician(s): Lexie Freeman M.D. Fellow physician(s): None Resident physician(s): None Advanced practice provider(s): None Medical Student(s): None Pre-procedure diagnosis: Right-sided breast cancer Post-procedure diagnosis: Same Indication: Administration of chemotherapy Additional clinical history: None _ PROCEDURE SUMMARY: - Venous access with ultrasound guidance - Tunneled port insertion under fluoroscopic guidance - Additional procedure(s): None PROCEDURE DETAILS: Pre-procedure Consent: Consent obtained with the patient as documented. Medication reconciliation: Done Sasha-procedure discussion: The appropriate elements of the pre-procedure discussion, safety check list and sign-out were performed. Time out was completed before start of procedure. Preparation (MIPS): The site was prepared and draped using all elements of maximal sterile barrier technique including sterile gloves, sterile gown, cap, mask, large sterile sheet, sterile ultrasound probe cover, hand hygiene and cutaneous antisepsis with 2% chlorhexidine. Medical reason for site preparation exception (MIPS): Not applicable Contrast: Contrast agent: Contrast volume (mL): Image Guidance: Fluoroscopic and sonographic guidance with digital image storage Radiation/Dose: FLUOROSCOPIC RADIATION SUMMARY: Plane A, Air Kerma: 6.5 mGy Dose Area Product (DAP): 08538.0 mGy*cm2 Fluoro Time: 0:54 min:sec Radiation dose exceed 3.5 Gy: No If radiation dose exceeded 3.5 Gy, was counseling and instructional brochure provided: N/A Anesthesia/Sedation: Level of anesthesia/sedation: Moderate sedation (conscious sedation) Anesthesia/sedation administered by: Independent trained observer under attending supervision with continuous monitoring of the patient?s level of consciousness and physiologic status Total intra-service sedation time (minutes): 50 Local anesthesia: 2 % lidocaine Antibiotics and meds: None Antibiotic infusion start time: N/A Prophylactic antibiotic administered: None Additional med: None Additional med: None Start of procedure: 11:19 End of procedure: 11:55 TECHNIQUE: Patient position: Supine Access Local anesthesia was administered. The vessel was sonographically evaluated and determined to be patent. Real time ultrasound was used to visualize needle entry into the vessel and a permanent image was stored. Vein accessed: Internal jugular vein Access technique: Micropuncture set with 21 gauge needle Venography Indication for venography: Not performed Vein catheterized: Not applicable Findings: Not applicable Port placement An incision was made at the upper chest, a pocket was created, and the catheter was tunneled subcutaneously to the venous access site and trimmed to appropriate length. The port was inserted into the pocket and the catheter was advanced via a peel-away sheath into the vein under fluoroscopic guidance. The port was sutured into the pocket using absorbable suture. Catheter tip location was fluoroscopically verified and a permanent image was stored. Port placed: 8 F BARD PowerPort by - Groshong (distal valved) silicone catheter with pressure injectable titanium port. Catheter flush: Normal saline Closure The access site and incision were closed and sterile dressing(s) were applied. Sponge counts were ascertained. Access site closure technique: Absorbable suture and tissue adhesive Incision closure technique: Absorbable suture and tissue adhesive Patient discharged from procedure suite with device accessed: No Additional Details Additional description of procedure: None Equipment details: None Number and Type of Removed Specimens: : N/A Estimated blood loss (mL): Less than 10 Standardized report: SIR_Port_v3 COMPLICATIONS: No immediate complications CONCLUSION: The patient was comfortable and was transferred to the recovery room in stable condition. The procedure was performed by the: attending radiologist, without an assistant director of financial aid. The attending radiologist performed the following procedural activities: Entire procedure IMPRESSION: INSERTION OF LEFT-SIDED POWER-INJECTABLE SINGLE-LUMEN TUNNELED CHEST PORT, WITH CATHETER TIP IN THE EXPECTED LOCATION OF THE CAVOATRIAL JUNCTION. PLAN: THE PORT MAY BE USED IMMEDIATELY. RECOMMEND NORMAL SALINE FLUSH INTERVAL OF 90 DAYS WHEN NOT BEING USED. ATTESTATION: Signer name: Lexie Freeman I attest that I was present for the entire procedure. I reviewed the stored images and agree with the report a (more content not included)... [facility] IR PORTOCATH PLACEMENTon IR PORTOCATH PLACEMENT * * *Final Report* * * DATE OF EXAM: Nov 05 2021 11:57AM [facility] 8966 - IR PORTOCATH PLACEMENT / PROCEDURE REASON: Malignant neoplasm of upper-outer quadrant of right breast in female, estrogen r * * * * Physician Interpretation * * * * PROCEDURE: VENOUS PORT PLACEMENT Procedural Personnel Attending physician(s): Lexie Freeman M.D. Fellow physician(s): None Resident physician(s): None Advanced practice provider(s): None Medical Student(s): None Pre-procedure diagnosis: Right-sided breast cancer Post-procedure diagnosis: Same Indication: Administration of chemotherapy Additional clinical history: None _ PROCEDURE SUMMARY: - Venous access with ultrasound guidance - Tunneled port insertion under fluoroscopic guidance - Additional procedure(s): None PROCEDURE DETAILS: Pre-procedure Consent: Consent obtained with the patient as documented. Medication reconciliation: Done Sasha-procedure discussion: The appropriate elements of the pre-procedure discussion, safety check list and sign-out were performed. Time out was completed before start of procedure. Preparation (MIPS): The site was prepared and draped using all elements of maximal sterile barrier technique including sterile gloves, sterile gown, cap, mask, large sterile sheet, sterile ultrasound probe cover, hand hygiene and cutaneous antisepsis with 2% chlorhexidine. Medical reason for site preparation exception (MIPS): Not applicable Contrast: Contrast agent: Contrast volume (mL): Image Guidance: Fluoroscopic and sonographic guidance with digital image storage Radiation/Dose: FLUOROSCOPIC RADIATION SUMMARY: Plane A, Air Kerma: 6.5 mGy Dose Area Product (DAP): 48633.0 mGy*cm2 Fluoro Time: 0:54 min:sec Radiation dose exceed 3.5 Gy: No If radiation dose exceeded 3.5 Gy, was counseling and instructional brochure provided: N/A Anesthesia/Sedation: Level of anesthesia/sedation: Moderate sedation (conscious sedation) Anesthesia/sedation administered by: Independent trained observer under attending supervision with continuous monitoring of the patient?s level of consciousness and physiologic status Total intra-service sedation time (minutes): 50 Local anesthesia: 2 % lidocaine Antibiotics and meds: None Antibiotic infusion start time: N/A Prophylactic antibiotic administered: None Additional med: None Additional med: None Start of procedure: 11:19 End of procedure: 11:55 TECHNIQUE: Patient position: Supine Access Local anesthesia was administered. The vessel was sonographically evaluated and determined to be patent. Real time ultrasound was used to visualize needle entry into the vessel and a permanent image was stored. Vein accessed: Internal jugular vein Access technique: Micropuncture set with 21 gauge needle Venography Indication for venography: Not performed Vein catheterized: Not applicable Findings: Not applicable Port placement An incision was made at the upper chest, a pocket was created, and the catheter was tunneled subcutaneously to the venous access site and trimmed to appropriate length. The port was inserted into the pocket and the catheter was advanced via a peel-away sheath into the vein under fluoroscopic guidance. The port was sutured into the pocket using absorbable suture. Catheter tip location was fluoroscopically verified and a permanent image was stored. Port placed: 8 F BARD PowerPort by - Groshong (distal valved) silicone catheter with pressure injectable titanium port. Catheter flush: Normal saline Closure The access site and incision were closed and sterile dressing(s) were applied. Sponge counts were ascertained. Access site closure technique: Absorbable suture and tissue adhesive Incision closure technique: Absorbable suture and tissue adhesive Patient discharged from procedure suite with device accessed: No Additional Details Additional description of procedure: None Equipment details: None Number and Type of Removed Specimens: : N/A Estimated blood loss (mL): Less than 10 Standardized report: SIR_Port_v3 COMPLICATIONS: No immediate complications CONCLUSION: The patient was comfortable and was transferred to the recovery room in stable condition. The procedure was performed by the: attending radiologist, without an assistant director of financial aid. The attending radiologist performed the following procedural activities: Entire procedure IMPRESSION: INSERTION OF LEFT-SIDED POWER-INJECTABLE SINGLE-LUMEN TUNNELED CHEST PORT, WITH CATHETER TIP IN THE EXPECTED LOCATION OF THE CAVOATRIAL JUNCTION. PLAN: THE PORT MAY BE USED IMMEDIATELY. RECOMMEND NORMAL SALINE FLUSH INTERVAL OF 90 DAYS WHEN NOT BEING USED. ATTESTATION: Signer name: Lexie Freeman I attest that I was present for the entire procedure. I reviewed the stored images and agree with the report as (more content not included)... [facility] IR US VASCULAR ACCESS GUIDEo n 11-05-2021 IR US VASCULAR ACCESS GUIDE * * *Final Report* * * DATE OF EXAM: Nov 05 2021 11:57AM [facility] 7765 - US VASCULAR ACCESS GUIDE / PROCEDURE REASON: Malignant neoplasm of upper-outer quadrant of right breast in female, estrogen r * * * * Physician Interpretation * * * * PROCEDURE: VENOUS PORT PLACEMENT Procedural Personnel Attending physician(s): Lexie Freeman M.D. Fellow physician(s): None Resident physician(s): None Advanced practice provider(s): None Medical Student(s): None Pre-procedure diagnosis: Right-sided breast cancer Post-procedure diagnosis: Same Indication: Administration of chemotherapy Additional clinical history: None _ PROCEDURE SUMMARY: - Venous access with ultrasound guidance - Tunneled port insertion under fluoroscopic guidance - Additional procedure(s): None PROCEDURE DETAILS: Pre-procedure Consent: Consent obtained with the patient as documented. Medication reconciliation: Done Sasha-procedure discussion: The appropriate elements of the pre-procedure discussion, safety check list and sign-out were performed. Time out was completed before start of procedure. Preparation (MIPS): The site was prepared and draped using all elements of maximal sterile barrier technique including sterile gloves, sterile gown, cap, mask, large sterile sheet, sterile ultrasound probe cover, hand hygiene and cutaneous antisepsis with 2% chlorhexidine. Medical reason for site preparation exception (MIPS): Not applicable Contrast: Contrast agent: Contrast volume (mL): Image Guidance: Fluoroscopic and sonographic guidance with digital image storage Radiation/Dose: FLUOROSCOPIC RADIATION SUMMARY: Plane A, Air Kerma: 6.5 mGy Dose Area Product (DAP): 46892.0 mGy*cm2 Fluoro Time: 0:54 min:sec Radiation dose exceed 3.5 Gy: No If radiation dose exceeded 3.5 Gy, was counseling and instructional brochure provided: N/A Anesthesia/Sedation: Level of anesthesia/sedation: Moderate sedation (conscious sedation) Anesthesia/sedation administered by: Independent trained observer under attending supervision with continuous monitoring of the patient?s level of consciousness and physiologic status Total intra-service sedation time (minutes): 50 Local anesthesia: 2 % lidocaine Antibiotics and meds: None Antibiotic infusion start time: N/A Prophylactic antibiotic administered: None Additional med: None Additional med: None Start of procedure: 11:19 End of procedure: 11:55 TECHNIQUE: Patient position: Supine Access Local anesthesia was administered. The vessel was sonographically evaluated and determined to be patent. Real time ultrasound was used to visualize needle entry into the vessel and a permanent image was stored. Vein accessed: Internal jugular vein Access technique: Micropuncture set with 21 gauge needle Venography Indication for venography: Not performed Vein catheterized: Not applicable Findings: Not applicable Port placement An incision was made at the upper chest, a pocket was created, and the catheter was tunneled subcutaneously to the venous access site and trimmed to appropriate length. The port was inserted into the pocket and the catheter was advanced via a peel-away sheath into the vein under fluoroscopic guidance. The port was sutured into the pocket using absorbable suture. Catheter tip location was fluoroscopically verified and a permanent image was stored. Port placed: 8 F BARD PowerPort by - Groshong (distal valved) silicone catheter with pressure injectable titanium port. Catheter flush: Normal saline Closure The access site and incision were closed and sterile dressing(s) were applied. Sponge counts were ascertained. Access site closure technique: Absorbable suture and tissue adhesive Incision closure technique: Absorbable suture and tissue adhesive Patient discharged from procedure suite with device accessed: No Additional Details Additional description of procedure: None Equipment details: None Number and Type of Removed Specimens: : N/A Estimated blood loss (mL): Less than 10 Standardized report: SIR_Port_v3 COMPLICATIONS: No immediate complications CONCLUSION: The patient was comfortable and was transferred to the recovery room in stable condition. The procedure was performed by the: attending radiologist, without an assistant director of financial aid. The attending radiologist performed the following procedural activities: Entire procedure IMPRESSION: INSERTION OF LEFT-SIDED POWER-INJECTABLE SINGLE-LUMEN TUNNELED CHEST PORT, WITH CATHETER TIP IN THE EXPECTED LOCATION OF THE CAVOATRIAL JUNCTION. PLAN: THE PORT MAY BE USED IMMEDIATELY. RECOMMEND NORMAL SALINE FLUSH INTERVAL OF 90 DAYS WHEN NOT BEING USED. ATTESTATION: Signer name: Lexie Freeman I attest that I was present for the entire procedure. I reviewed the stored images and agree with the repo (more content not included)... Normal [facility] Comprehensive metabolic 2000 panelon 10-22-2021 Albumin [Mass/Vol] 4.4 g/dL 3.9 - 4.9 g/dL [facility] ALP [Catalytic activity/Vol] 92 U/L 34 - 123 U/L [facility] ALT [Catalytic activity/Vol] 16 U/L 7 - 38 U/L [facility] Anion gap [Moles/Vol] 9 mmol/L 9 - 18 mmol/L [facility] AST [Catalytic activity/Vol] 19 U/L 13 - 35 U/L [facility] Bilirubin [Mass/Vol] 0.3 mg/dL 0.2 - 1.3 mg/dL [facility] Calcium [Mass/Vol] 10.4 mg/dL High 8.5 - 10.2 mg/dL [facility] Chloride [Moles/Vol] 103 mmol/L 97 - 105 mmol/L [facility] CO2 [Moles/Vol] 27 mmol/L 22 - 30 mmol/L [facility] Creatinine [Mass/Vol] 1.03 mg/dL High 0.58 - 0.96 mg/dL [facility] Estimated Glomerular Filtration Rate 59 mL/min/1.73m Low >=60 mL/min/1.73m [facility] Glucose [Mass/Vol] 142 mg/dL High 74 - 99 mg/dL [facility] Potassium [Moles/Vol] 4.0 mmol/L 3.7 - 5.1 mmol/L [facility] Protein [Mass/Vol] 6.9 g/dL 6.3 - 8.0 g/dL Cl [facility] Sodium [Moles/Vol] 139 mmol/L 136 - 144 mmol/L [facility] Urea nitrogen [Mass/Vol] 26 mg/dL High 7 - 21 mg/dL [facility] CBC W Auto Differential pane l (Bld)on 10-21-2021 Abs Immature Gran 0.04 k/uL <0.10 k/uL [facility] Basophils (Bld) [#/Vol] 0.03 10*3/uL <0.11 k/uL [facility] Basophils/100 WBC (Bld) 0.4 % [facility] Differential cell count method Nom (Bld) Auto [facility] Eosinophils (Bld) [#/Vol] 0.10 10*3/uL <0.46 k/uL [facility] Eosinophils/100 WBC (Bld) 1.4 % [facility] Erythrocyte distribution width (RBC) [Ratio] 14.2 % 11.5 - 15.0 % [facility] Hematocrit (Bld) [Volume fraction] 41.1 % 36.0 - 46.0 % [facility] Hemoglobin (Bld) [Mass/Vol] 13.9 g/dL 11.5 - 15.5 g/dL [facility] Immature Gran % 0.5 % [facility] Lymphocytes (Bld) [#/Vol] 2.43 10*3/uL 1.00 - 4.00 k/uL [facility] Lymphocytes/100 WBC (Bld) 33.4 % [facility] MCH (RBC) [Entitic mass] 31.7 pg 26.0 - 34.[address] [facility] MCHC (RBC) [Mass/Vol] 33.8 g/dL 30.5 - 36.0 g/dL [facility] MCV (RBC) [Entitic vol] 93.8 fL 80.0 - 100.[address] [facility] Monocytes (Bld) [#/Vol] 0.62 10*3/uL <0.87 k/uL [facility] Monocytes/100 WBC (Bld) 8.5 % [facility] Neutrophils (Bld) [#/Vol] 4.06 10*3/uL 1.45 - 7.50 k/uL [facility] Neutrophils/100 WBC (Bld) 55.8 % [facility] Nucleated RBC (Bld) [#/Vol] <0.01 k/uL [facility] Nucleated RBC/100 WBC (Bld) [Ratio] 0.0 /[address] [facility] Platelet mean volume (Bld) [Entitic vol] 10.1 fL 9.0 - 12.[address] [facility] Platelets (Bld) [#/Vol] 215 10*3/uL 150 - 400 k/uL [facility] RBC (Bld) [#/Vol] 4.38 10*6/uL 3.90 - 5.20 m/uL [facility] WBC (Bld) [#/Vol] 7.28 10*3/uL 3.70 - 11.00 k/u L [facility] 10-02-2021 L --- Specimen: [id number] Received: 10/02/21 Status: KAYY Lyons Num: [id number] Spec Type: Surgical Subm Dr: Ronda Degroot MD Tissues: A Breast Core Needle Biopsy (RT BREAST TISSUE) B Breast Core Needle Biopsy (RT LYMPHOID TISSUE) Procedures: HE Stain/4, Gross/Micro L4/2 Age/ Patient Sex Location Account Attending Physician Kiah Cortes 66/F [place] [id number] Shaikh Yumiko MD SPEC NUM: [id number] RECD: 10/02/21 STATUS: KAYY LYONS NUM: [id number] KHADAR: 10/02/[address] [facility] [address]: Ronda Degroot MD ENTERED: 10/02/21 [facility] DR: Shaikh Yumiko MD SPEC TYPE: Surgical DEPT: S ORDERED: HE Stain/4, Gross/Micro L4/2 ORDERED: HE Stain/4, Gross/Micro L4/2 Pathological Diagnosis A. Right breast, 12 o'clock, 7 cm from nipple, biopsy: - Invasive ductal carcinoma, provisional Mcmillan histologic grade 1 (3+1+1 = 5), size of largest contiguous focus: 5.5 mm - Estrogen receptor (ER): Positive, 90%, strong - Progesterone receptor (PgR): Positive, 80%, moderate to strong - HER2/Andrea IHC: Pending B. Soft tissue, right axillary tail, biopsy: - Invasive ductal carcinoma, provisional Suzie histologic grade 1 (3+1+1 = 5), size of largest contiguous focus: 14 mm - ER: Positive, 90%, strong - PgR: Positive, 80%, moderate to strong - HER2/Andrea IHC: Pending NOTE: The diagnoses are confirmed by review of a second pathologist. In specimen B, small clusters of lymphocytes are admixed with the tumor cells. No definitive evidence of lymph node architecture is appreciated. Correlation with clinical and imaging findings is recommended. Specimen: [id number] Received: 10/02/21 Status: KAYY Vickershumberto Num: [id number] Spec Type: Surgical Subm Dr: Ronda Degroot MD Tissues: A Breast Core Needle Biopsy (RT BREAST TISSUE) B Breast Core Needle Biopsy (RT LYMPHOID TISSUE) Procedures: HE Stain/4, Gross/Micro L4/2 Patient: CortesKiah [id number] (Continued) Specimen: [id number] Received: 10/02/21 (Continued) Signed (signature on file) Stanley Kang MD 10/06/21 1509 Specimen: [id number] Received: 10/02/21 Status: KAYY Lyons Num: [id number] Spec Type: Surgical Subm Dr: Ronda Degroot MD Tissues: A Breast Core Needle Biopsy (RT BREAST TISSUE) B Breast Core Needle Biopsy (RT LYMPHOID TISSUE) Procedures: HE Stain/4, Gross/Micro L4/2 Patient: Kiah Cortes [id number] (Continued) Specimen: [id number] Received: 10/02/21 (Continued) Clinical Information Right breast mass 10 o'clock 7 cm from nipple, right suspicious lymph node, ultrasound- guided biopsy Gross Description A. Received in 10% neutral buffered formalin, labeled with the patient's name, number and right breast, 10 o'clock, 7 cm from nipple are multiple fragments of yellow-white soft tissue, measuring in aggregate 3.0 x 3.0 x 0.3 cm. Entirely submitted in one cassette labeled A1. Time of excision: 11:36 AM 10/02/21, time in formalin: 11:39 AM 10/02/21, time out of formalin: 6 PM 10/04/21. Cold Ischemia and Fixation Time meets the requirements specified in the latest version of the ASCO/CAP guidelines: Yes. Cold Ischemic Time: 0.1 hours Formalin Fixation Time: 54.4 hours (LG/LG) B. Received in 10% neutral buffered formalin, labeled with the patient's name, number and right suspicious lymph node are two cores of turner red tissue measuring 1.2 x 0.2 cm and 1.6 x 0.2 cm. Entirely submitted in one cassette labeled B1. (LG/LG) Microscopic Description A. Two glass slides with H E stained material have been examined. The microscopic findings support the above pathologic diagnosis. Immunohistochemical stains for AE1/AE3, CD68, E-Cadherin, ER, PgR, and S100, with appropriate controls, have been examined. The foamy cells are positive for E-Cadherin, and negative for AE1/AE3, CD68, and S100. B. Two glass slides with H E stained material have been examined. The microscopic findings support the above p (more content not included)... [facility] --- Specimen: [id number] Received: 10/02/21 Status: KAYY Vickershumberto Num: [id number] Spec Type: Surgical Subm Dr: Ronda Degroot MD Tissues: A Breast Core Needle Biopsy (RT BREAST TISSUE) B Breast Core Needle Biopsy (RT LYMPHOID TISSUE) Procedures: Mucicarmine Stn, HE Stain/4, Gross/Micro L4/2, PAS Stain With, PAS Stain Witho, IHC First AB/2, IHC Add AB/11 Age/ Patient Sex Location Account Attending Physician Kiah Cortes 66/F [place] [id number] Shaikh Yumiko MD SPEC NUM: [id number] RECD: 10/02/21 STATUS: KAYY LYONS NUM: [id number] KHADAR: 10/02/[address] [facility] [address]: Ronda Degroot MD ENTERED: 10/02/21 [facility] DR: Shaikh Yumiko MD SPEC TYPE: Surgical DEPT: S ORDERED: Mucicarmine Stn, HE Stain/4, Gross/Micro L4/2, PAS Stain With, PAS Stain Witho, IHC First AB/2, IHC Add AB/11 ORDERED: Mucicarmine Stn, HE Stain/4, Gross/Micro L4/2, PAS Stain With, PAS Stain Witho, IHC First AB/2, IHC Add AB/11, IMMUNOHISTOCHEM/4 Supplemental Report Addendum 1 Entered: 10/12/21-7770 A-B. Immunohistochemical stain for HER2/Andrea, appropriate controls, has been performed at [facility] (accession/case #: [id number], [id number]). The result is interpreted at [facility] as follows: HER2/Andrea IHC: Negative (score: 0) [id number] The following criteria are used to determine the HER2/Andrea IHC result per ASCO/CAP (2018): Negative (Score 0) - No staining observed or Incomplete faint/barely perceptible membrane staining in < or = 10% of invasive tumor cells. Negative (Score 1+) - Incomplete faint/barely perceptible membrane staining in >10% of invasive tumor cells. Equivocal (Score 2+) - Incomplete and/or weak to moderate circumferential membrane staining in >10% of invasive tumor cells or complete intense circumferential membrane staining within < or = to 10% of invasive tumor cells. Positive (Score 3+) - Complete intense circumferential membrane staining in >10% of invasive Specimen: [id number] Received: 10/02/21 Status: KAYY Lyons Num: [id number] Spec Type: Surgical Subm Dr: Ronda Degroot MD Tissues: A Breast Core Needle Biopsy (RT BREAST TISSUE) B Breast Core Needle Biopsy (RT LYMPHOID TISSUE) Procedures: Mucicarmine Stn, HE Stain/4, Gross/Micro L4/2, PAS Stain With, PAS Stain Witho, IHC First AB/2, IHC Add AB/11 Patient: Kiah Cortes [id number] (Continued) Specimen: [id number] Received: 10/02/21 (Continued) Supplemental Report (Continued) Signed (signature on file) Stanley Kang MD 10/06/21 1509 Specimen: [id number] Received: 10/02/21 Status: KAYY Tony Num: [id number] Spec Type: Surgical Subm Dr: Ronda Degroot MD Tissues: A Breast Core Needle Biopsy (RT BREAST TISSUE) B Breast Core Needle Biopsy (RT LYMPHOID TISSUE) Procedures: Mucicarmine Stn, HE Stain/4, Gross/Micro L4/2, PAS Stain With, PAS Stain Witho, IHC First AB/2, IHC Add AB/11 Patient: Kiah Cortes [id number] (Continued) Specimen: [id number] Received: 10/02/21-1304 (Continued) Supplemental Report (Continued) tumor cells. FDA approved HER2/andrea antibody (HER2/andrea antibody clone [id number], PATHWAY), is used at [facility]. The slides were digitally imaged using the [employer] Scope platform and may have been interpreted with the aid of scope IA image analysis at [facility]. Addendum Signed (signature on file) Stanley Kang MD 10/12/21 1353 Pathological Diagnosis A. Right breast, 12 o'clock, 7 cm from nipple, biopsy: - Invasive ductal carcinoma, provisional Mcmillan histologic grade 1 (3+1+1 = 5), size of largest contiguous focus: 5.5 mm - Estrogen receptor (ER): Positive, 90%, strong - Progesterone receptor (PgR): Positive, 80%, moderate to strong - HER2/Andrea IHC: Pending B. Soft tissue, right axillary tail, biopsy: - Invasive ductal car (more content not included)... Normal [facility] MM post biopsy RT w/CADon MM post biopsy RT w/CAD [facility] [place] [address] Ultrasound Report Signed with Addenda Patient: Kiah Cortes MR#: [id number] : 1955 Acct:[id number] Age/Sex: 66 / F ADM Date: 10/02/21 Loc: [facility] Room: Type: [facility] Attending Dr: Shaikh Yumiko MCGOVERN Ordering Provider: Shaikh Yumiko MD Date of Service: 10/02/21 US/US breast ndl core biopsy RT: RIGHT BREAST MASS ([id number]) MM/MM post biopsy RT w/CAD: CLIP PLACEMENT POST BX ([id number]) US/US guide needle placement: RT LN BX Copies to: Shaikh Yumiko MD ADDENDUM 1 The patient's pathology results for the right breast biopsy show invasive ductal carcinoma, ER/HI positive. This is concordant. The right axillary tail lymph node biopsy also shows invasive ductal carcinoma. Surgical consult is recommended. Impression dictated by: Ronda Degroot M.D.10/07/2021 4:00 PM Dictation Location: [place] [address] Addendum Dictated By: MD Ronda Degroot Addendum Signed By: 10/07/211599 Addendum Cosigned By: DD/ /19/1558 TD/TT: 10/07/2112/20/1599 CLINICAL DATA: Palpable right upper outer breast mass and enlarged axillary tail lymph nodes. RIGHT BREAST ULTRASOUND-GUIDED BIOPSY WITH VACUUM ASSISTANCE Patient's previous imaging from September 30, 2021 was reviewed. The procedure was discussed with the patient and consent was obtained. Ultrasound survey at the upper outer quadrant was performed. An ill-defined mass with associated shadowing is again seen at 10:00. Ultrasound survey at the axilla tail also shows multiple lymph nodes with thickened cortex. The right breast mass was addressed first. Following sterile preparation and local anesthesia lidocaine, a 12-gauge vacuum assisted needle was advanced into the lesion under direct ultrasound visualization. Multiple core tissue samples were obtained. Before the needle was removed, a biopsy marking clip was placed. There were no immediate complications. Attention was then directed to the lowest of the lymph nodes with thickened cortex. Following local anesthesia, two 14-gauge core biopsy specimens were obtained with the Sertera needle. There were no immediate complications. DIAGNOSTIC RIGHT MAMMOGRAM - FULL FIELD DIGITAL Craniocaudal and true lateral views of the right breast were obtained using low-dose digital technique. Comparison is made to mammogram from September 30, 2021. There is mild residual fibroglandular tissue. There is new subcutaneous air and a biopsy marking clip associated with the irregular masslike area at the upper outer quadrant. There is a partially imaged lymph node at the right axilla however the clip is not identified in the field of view. Benign and vascular calcifications are present. US/US guide needle placement IMPRESSION: STATUS POST ULTRASOUND-GUIDED BIOPSY OF A MASS AT THE UPPER OUTER RIGHT BREAST AND LYMPH NODE WITH THICKENED CORTEX AT THE AXILLARY TAIL. Impression dictated by: Ronda Degroot M.D.10/02/2021 12:07 PM Dictation Location: [facility] Tech: Shakila Clay; Hina Johns Transcribed By: JESSA 10/02/21 120 Dictated By: Ronda Degroot MD 10/02/21 1154 Signed By: 10/02/21 1207 Normal [facility] MM diagnostic mammo BI w/CAD on 09-30-2021 MM diagnostic mammo BI w/CAD [facility] [place] [address] [place] [address] Ultrasound Report Signed Patient: Kiah Cortes MR#: [id number] : 1955 Acct:[id number] Age/Sex: 66 / F ADM Date: 09/30/21 Loc: [place] Room: Type: [facility] Attending Dr: Shaikh Yumiko MCGOVERN Ordering Provider: Shaikh Yumiko MD Date of Service: 09/30/21 MM/MM diagnostic mammo BI w/CAD: N63.12 ([id number]) US/US breast RT limited: N63.12 Copies to: Shaikh Yumiko MD CLINICAL DATA: Palpable lump right breast. BilateralDIAGNOSTIC MAMMOGRAM - WITH TOMOSYNTHESIS AND CAD , rightLIMITED BREAST ULTRASOUND COMPARISON:None Tomosynthesis imaging was obtained using low-dose digital technique. This examination was reviewed with the aid of CAD. Additional ultrasound imaging was also obtained. Mammogram: The breasts are composed of scattered fibroglandular densities. A spiculated mass is seen within the upper outer aspect of the right breast, middle depth. No additional areas of architectural distortion, worrisome masses or suspicious calcifications within either breast. Ultrasound: At the 9 to 10:00 position of the right breast approximately 8 cm from nipple, a hypoechoic mass with irregular margins is noted measuring 2.9 x 2.5 x 2.3 cm. Internal color Doppler vascularity is seen. Additional scanning of the right axilla demonstrates suspicious lymph nodes with abnormal cortical thickening. US/US breast RT limited IMPRESSION: AT THE 9 AND 10:00 POSITION OF THE RIGHT BREAST APPROXIMATELY 8 CM FROM NIPPLE, A MASS IS NOTED MEASURING 2.9 X 2.5 X 2.3 CM SUSPICIOUS FOR MALIGNANCY. IN ADDITION, THERE APPEARS TO BE SUSPICIOUS LYMPH NODES INVOLVING THE RIGHT AXILLA. ULTRASOUND-GUIDED BIOPSY IS RECOMMENDED. RESULT CODE: 5 Highly Suggestive of Malignancy DENSITY CODE: 2 (approximately 25-50% glandular) FOLLOW UP: BIO The false-negative rate of mammography is approximately 10-percent. Management of a palpable abnormality must be based on clinical grounds. Impression dictated by: Warren Barker Jr., Alexus09/30/2021 10:07 AM Dictation Location: [facility] Tech: Dipti Anderson; Zeenat Jones Transcribed By: JESSA 09/30/21 1007 Dictated By: Warren Barker Jr, DO 09/30/21 1003 Signed By: 09/30/21 1007 Normal [facility] Basic Metabolic Panelon 04-29 Calcium [Mass/Vol] 9.3 mg/dL Normal 8.2-10.2 [facility] Comment on above: Performed By: #### B MP #### [facility] [address] [place] [address] [place] Chloride [Moles/Vol] 103 mmol/L Normal 95-114 [facility] Comment on above: Performed By: #### B MP #### [facility] [address] [place] [address] [facility] CO2 [Moles/Vol] 23.7 mmol/L Normal 22.0-30.0 [place] Comment on above: Performed By: #### B MP #### [facility] [address] Creatinine [Mass/Vol] 0.95 mg/dL Normal 0.44-1.03 [facility] Comment on above: Performed By: #### B MP #### [address] Creatinine Clr Calc Pharmacy 63.92 [facility] Comment on above: Result Comment: PERF ORMED BY: [place] [address] PATHOLOGIST EMERGENCY SERVICE RESTORER STANLEY KANG M.D. Performed By: #### B MP #### [address] Estimated GFR ( Adeola > 60 [facility] Comment on above: Result Comment: GFR estimated reference range: According to KDOQI guidelines, <60 ml/min/1.73m2 is sufficient to diagnose a patient with chronic kidney disease. Performed By: #### B MP #### [address] Estimated GFR (Non- Am 58 [facility] Comment on above: Performed By: #### B MP #### [address] Glucose [Mass/Vol] 186 mg/dL High 70-100 [facility] Comment on above: Result Comment: [place] Glucose Reference Range is dependent on time and content of last meal. Glucose of more than 200 mg/dL in a nonstressed, ambulatory subject supports the diagnosis of Diabetes Mellitus. ADA recommended reference range Performed By: #### B MP #### [address] Potassium [Moles/Vol] 3.7 mmol/L Normal 3.5-5.1 [facility] Comment on above: Performed By: #### B MP #### [address] Sodium [Moles/Vol] 137 mmol/L Normal 136-146 [facility] Comment on above: Performed By: #### B MP #### [address] Urea nitrogen [Mass/Vol] 17 mg/dL Normal 11-20 [facility] Comment on above: Performed By: #### B MP #### [facility] [address] Glucose Poct Glucometerson 0 05-20-2021 Glucose [Mass/Vol] 193 mg/dL Normal [facility] Comment on above: Result Comment: [facility] Glucose Reference Range is dependent on time and content of last meal. Glucose of more than 200 mg/dL in a nonstressed, ambulatory subject supports the diagnosis of Diabetes Mellitus. PERFORMED BY: [facility] [address] [place] [address] PATHOLOGIST EMERGENCY SERVICE RESTORER STANLEY KANG M.D. Performed By: #### G DORA #### Point of Care testing , Glucose [Mass/Vol] 188 mg/dL Normal [facility] Comment on above: Result Comment: [facility] Glucose Reference Range is dependent on time and content of last meal. Glucose of more than 200 mg/dL in a nonstressed, ambulatory subject supports the diagnosis of Diabetes Mellitus. PERFORMED BY: [facility] [address] [place] [address] PATHOLOGIST EMERGENCY SERVICE RESTORER STANLEY KANG M.D. Performed By: #### G LUELIANA #### Point of Care testing , Ricardo 05-20-2021 L --- Specimen: [id number] Received: 05/20/21 Status: KAYY Lyons Num: [id number] Spec Type: Surgical Subm Dr: Jonah Carney MD Tissues: A Joint/Knee (RT SHOULDER) Procedures: HE Stain/2, Gross/Micro L4, Decal Patient Age/Sex Location Account Attending Physician Kiah Cortes 66/F [place] [id number] Jonah Carney MD SPEC NUM: [id number] RECD: 05/20/21-9 STATUS: KAYY LYONS NUM: [id number] KHADAR: 05/20/21- [facility] DR: Jonah Carney MD ENTERED: 05/20/21-1040 [facility] DR: SARA TYPE: Surgical DEPT: S ORDERED: HE Stain/2, Gross/Micro L4, Decal ORDERED: HE Stain/2, Gross/Micro L4, Decal Pathological Diagnosis Bone and soft tissue, right shoulder, arthroplasty: - Bone and cartilage showing degenerative and reactive changes, consistent with degenerative joint disease - Benign tendon and loose fibroconnective tissue Clinical Information Right shoulder primary osteoarthritis complete tear of right rotator cuff, right shoulder pain; right reverse total shoulder arthroplasty Gross Description Received in formalin labeled with the patient's name, number and right shoulder, bone and tissue is a portion of the humeral head, measuring 4.2 x 4 x 1.7 cm. The articular surface shows eburnation and granularity. Cross sectioning of the humeral head reveals loss of cartilage. A treasury representative section of the bone and cartilage is submitted in cassette A1 following decalcification. Also received in the same container is a portion of white firm tendon, measuring 8 cm in length with a diameter of up to 0.5 cm. Cross sectioning reveals yellow dense cut surfaces. [employer] sections are submitted in cassette A2. (JS/js) Specimen: [id number] Received: 05/20/21 Status: KAYY Tony Num: [id number] Spec Type: Surgical Subm Dr: Jonah Carney MD Tissues: A Joint/Knee (RT SHOULDER) Procedures: HE Stain/2, Gross/Micro L4, Decal Patient: Kiah Cortes [id number] (Continued) Specimen: [id number] Received: 05/20/21 (Continued) Signed (signature on file) Stanley Kang MD 03/25/22 1917 Specimen: [id number] Received: 05/20/21 Status: KAYY Lyons Num: [id number] Spec Type: Surgical Subm Dr: Jonah Carney MD Tissues: A Joint/Knee (RT SHOULDER) Procedures: HE Stain/2, Gross/Micro L4, Decal Patient: Tima Corteschantel Beasley [id number] (Continued) Specimen: [id number] Received: 05/20/21 (Continued) Microscopic Description Two glass slides with H E stained material have been examined. The microscopic findings support the above pathologic diagnosis. [id number], [id number] Specimen: [id number] Received: 05/20/21 Status: KAYY Lyons Num: [id number] Spec Type: Surgical Subm Dr: Jonah Carney MD Tissues: A Joint/Knee (RT SHOULDER) Procedures: HE Stain/2, Gross/Micro L4, Decal Patient: Kiah Cortes Ramos [id number] (Continued) Signed (signature on file) Stanley Kang MD 05/22/211916 Normal [facility] XR shoulder RT min 2V*on XR shoulder RT min 2V* [address] [address] XRay Report Signed Patient: Kiah Cortes MR#: [id number] : 1955 Acct:[id number] Age/Sex: 66 / F ADM Date: 05/20/21 Loc: [place] Room: Type: REG VAC Attending Dr: Jonah Carney MD Ordering Provider: Jonah Carney MD Date of Service: 05/20/21 XR/XR shoulder RT min 2V*: Post op shoulder replacement Copies to: Jonah Carney MD XR shoulder RT min 2V* 05/20/2021 10:03 AM SIGNS AND SYMPTOMS: Postop right shoulder replacement, follow-up PROTOCOL: Frontal, Grashey, and scapular Y views of the right shoulder COMPARISON: 09/23/2020 FINDINGS: There is reverse right shoulder arthroplasty hardware which is new. There is no evidence of hardware complication. No fracture or dislocation. Degenerative changes are noted in the acromioclavicular joint. The visualized right hemithorax is grossly intact. Degenerative changes are partly visualized in the thoracic spine. XR/XR shoulder RT min 2V* IMPRESSION: Interval total reversed right shoulder arthroplasty hardware placement without hardware complication, fracture, or dislocation. Impression dictated by: Jonah Tom M.D.05/20/2021 10:53 AM Dictation Location: [place] [address] Transcribed By: [facility] 05/20/21 1053 Dictated By: Jonah Tom II, MD 05/20/21 1052 Signed By: 05/20/21 1053 Normal [facility] COVID-19 [facility] [place] SARS-CoV-2 (COVID-19) RNA ERICKSON+probe Ql (Unsp spec) Negative Normal Negative [facility] Comment on above: Order Comment: Healt hcare Worker?: N Result Comment: Testing for SARS-CoV-2 by RT-PCR This test was developed and its performance characteristics determined by [employer] ([employer]) and validated at the [facility]. This test has not been FDA cleared or approved. This test has been authorized by FDA under an Emergency Use Authorization (EUA). This test has been validated in accordance with the FDA's Guidance Document (Policy for Diagnostics Testing in Laboratories Certified to Perform High Complexity Testing under CLIA prior to Emergency Use Authorization for Coronavirus Disease-2019 during the Public Health Emergency) issued on May 31, 2019. This test is only authorized for the duration of time the declaration that circumstances exist justifying the authorization of the emergency use of in vitro diagnostic tests for detection of SARS-CoV-2 virus and/or diagnosis of COVID-19 infection under section 564(b)(1) of the Act, 21 U.S.C. 360bbb-3(b)(1), unless the authorization is terminated or revoked sooner. PERFORMED BY: [facility] [address] [place] [address] PATHOLOGIST EMERGENCY SERVICE RESTORER STANLEY KANG M.D. Performed By: #### C OVID 19 [facility] #### [facility] [address] [place] [address] [facility] COVID-19 Positive/NegativeOr dered By: Jonah Carney on 05-18-2021 SARS-CoV-2 (COVID-19) N gene ERICKSON+probe Ql (Resp) Negative Negative [facility] Comment on above: Testing for SARS-CoV -2 by RT-PCRThis test was developed and its performance characteristics determined by [employer] ([employer]) and validated at the [facility]. This test has not been FDA cleared or approved. This test has been authorized by FDA under an Emergency Use Authorization (EUA). This test has been validated in accordance with the FDA's Guidance Document (Policy for Diagnostics Testing in Laboratories Certified to Perform High Complexity Testing under CLIA prior to Emergency Use Authorization for Coronavirus Disease-2019 during the Public Health Emergency) issued on May 31, 2019. This test is only authorized for the duration of time the declaration that circumstances exist justifying the authorization of the emergency use of in vitro diagnostic tests for detection of SARS-CoV-2 virus and/or diagnosis of COVID-19 infection under section 564(b)(1) of the Act, 21 U.S.C. 360bbb-3(b)(1), unless the authorization is terminated or revoked sooner. Basic Metabolic Panelon 0 Calcium [Mass/Vol] 9.8 mg/dL Normal 8.2-10.2 [facility] Comment on above: Result Comment: PERF ORMED BY: [facility] [address] [place] [address] PATHOLOGIST EMERGENCY SERVICE RESTORER JIANLAN SUN M.D. Performed By: #### C BC, BMP #### [facility] [address] Chloride [Moles/Vol] 101 mmol/L Normal 95-114 [facility] Comment on above: Performed By: #### C BC, BMP #### [facility] [address] CO2 [Moles/Vol] 28.5 mmol/L Normal 22.0-30.0 [place] Comment on above: Performed By: #### C BC, BMP #### [facility] [address] Creatinine [Mass/Vol] 1.43 mg/dL High 0.44-1.03 [facility] Comment on above: Performed By: #### C BC, BMP #### [address] Estimated GFR ( Adeola 44 [facility] Comment on above: Result Comment: GFR estimated reference range: According to KDOQI guidelines, <60 ml/min/1.73m2 is sufficient to diagnose a patient with chronic kidney disease. Performed By: #### C BC, BMP #### [facility] [address] [place] [address] [place] Estimated GFR (Non- Am 36 [facility] Comment on above: Performed By: #### C BC, BMP #### [place] [address] [place] Glucose [Mass/Vol] 149 mg/dL High 70-100 [facility] Comment on above: Result Comment: [place] Glucose Reference Range is dependent on time and content of last meal. Glucose of more than 200 mg/dL in a nonstressed, ambulatory subject supports the diagnosis of Diabetes Mellitus. ADA recommended reference range Performed By: #### C BC, BMP #### [facility] [address] Potassium [Moles/Vol] 3.7 mmol/L Normal 3.5-5.1 [facility] Comment on above: Performed By: #### C BC, BMP #### [address] [address] [place] Sodium [Moles/Vol] 141 mmol/L Normal 136-146 [facility] Comment on above: Performed By: #### C JUANITO, BMP #### [address] Urea nitrogen [Mass/Vol] 32 mg/dL High 9-23 [facility] Comment on above: Performed By: #### C JUANITO, BMP #### [address] Basophils Auto (Bld) [#/Vol] Ordered By: Jonah Carney on 05-04-2021 Basophils (Bld) [#/Vol] 0.0 10*3/uL 0.0-0.2 [facility] Basophils/100 WBC Auto (Bld) Ordered By: Jonah Carney on 05-04-2021 Basophils/100 WBC (Bld) 0.3 % [facility] Blood hemoglobin measurement (mass/volume)Ordered By: Jonah Carney on 05-04-2021 Hemoglobin (Bld) [Mass/Vol] 13.5 g/dL 11.8-15.4 [facility] Blood leukocytes automated c ount (number/volume)Ordered By: Jonah Carney on 05-04-2021 WBC (Bld) [#/Vol] 5.6 10*3/uL 4.5-11.0 [facility] Complete Blood Count Auto Di ffon 05-04-2021 Basophils (Bld) [#/Vol] 0.0 10*3/uL Normal 0.0-0.2 [facility] Comment on above: Result Comment: PERF ORMED BY: [place] [address] PATHOLOGIST EMERGENCY SERVICE RESTORER STANLEY KANG M.D. Performed By: #### C JUANITO, BMP #### [address] Basophils/100 WBC (Bld) 0.3 % Normal . [facility] Comment on above: Performed By: #### C JUANITO, BMP #### [address] Eosinophils (Bld) [#/Vol] 0.1 10*3/uL Normal 0.0-0.45 [facility] Comment on above: Performed By: #### C BC, BMP #### [address] Eosinophils/100 WBC (Bld) 1.2 % Normal . [facility] Comment on above: Performed By: #### C BC, BMP #### [address] Erythrocyte distribution width (RBC) [Ratio] 14.2 % Normal 11.9-15.3 [facility] Comment on above: Performed By: #### C BC, BMP #### [address] Hematocrit (Bld) [Volume fraction] 40.3 % Normal 34.0-46.4 [facility] Comment on above: Performed By: #### C BC, BMP #### [address] Hemoglobin (Bld) [Mass/Vol] 13.5 g/dL Normal 11.8-15.4 [facility] Comment on above: Performed By: #### C BC, BMP #### [address] Lymphocytes (Bld) [#/Vol] 1.6 10*3/uL Normal 1.00-4.8 [facility] Comment on above: Performed By: #### C BC, BMP #### [address] Lymphocytes/100 WBC (Bld) 28.0 % Normal . [facility] Comment on above: Performed By: #### C BC, BMP #### [address] MCH (RBC) [Entitic mass] 31.8 pg Normal 24.7-34.3 [facility] Comment on above: Performed By: #### C BC, BMP #### [address] MCV (RBC) [Entitic vol] 94.7 fL Normal 80-100 [facility] Comment on above: Performed By: #### C BC, BMP #### [facility] [address] Mean Corpuscular HGB Conc 33.6 g/dL Normal 32.0-35.0 [facility] Comment on above: Performed By: #### C BC, BMP #### [facility] [address] [place] [address] [place] Monocytes (Bld) [#/Vol] 0.5 10*3/uL Normal 0.0-0.8 [facility] Comment on above: Performed By: #### C BC, BMP #### [address] Monocytes/100 WBC (Bld) 8.4 % Normal . [facility] Comment on above: Performed By: #### C BC, BMP #### [address] Neutrophils (Bld) [#/Vol] 3.5 10*3/uL Normal 1.8-7.7 [facility] Comment on above: Performed By: #### C BC, BMP #### [place] [address] [place] Neutrophils/100 WBC (Bld) 62.1 % Normal . [facility] Comment on above: Performed By: #### C BC, BMP #### [facility] [address] [place] [address] [place] Nucleated RBC/100 WBC (Bld) [Ratio] 0.1 % Normal 0-0.5 [facility] Comment on above: Performed By: #### C BC, BMP #### [facility] [address] Platelet mean volume (Bld) [Entitic vol] 8.8 fL Normal 6.3-10.7 [facility] Comment on above: Performed By: #### C BC, BMP #### [place] [address] [place] Platelets (Bld) [#/Vol] 209 10*3/uL Normal 150-450 [facility] Comment on above: Performed By: #### C BC, BMP #### [facility] [address] RBC (Bld) [#/Vol] 4.25 10*6/uL Normal 3.60-5.00 [facility] Comment on above: Performed By: #### C BC, BMP #### [facility] [address] WBC (Bld) [#/Vol] 5.6 10*3/uL Normal 4.5-11.0 [facility] Comment on above: Performed By: #### C BC, BMP #### [facility] [address] Creatinine and Glomerular fi ltration rate.predicted panel (S/P/Bld)Ordered By: Jonah Carney on 05-04-2021 Creatinine [Mass/Vol] 1.43 mg/dL 0.44-1.03 [facility] Eosinophils Auto (Bld) [#/Vo l]Ordered By: Jonah Carney on 05-04-2021 Eosinophils (Bld) [#/Vol] 0.1 10*3/uL 0.0-0.45 [facility] Eosinophils/100 WBC Auto (Bl d)Ordered By: Jonah Carney on 05-04-2021 Eosinophils/100 WBC (Bld) 1.2 % [facility] Erythrocyte distribution wid th Auto (RBC) [Ratio]Ordered By: Jonah Carney on 05-04-2021 Erythrocyte distribution width (RBC) [Ratio] 14.2 % 11.9-15.3 [facility] Estimated glomerular filtrat ion rate (GFR) non- AmericanOrdered By: Jonah Carney on 05-04-2021 GFR/1.73 sq M.predicted among non-blacks MDRD (S/P/Bld) [Vol rate/Area] 36 mL/Min [facility] Hematocrit Auto (Bld) [Volum e fraction]Ordered By: Jonah Carney on 05-04-2021 Hematocrit (Bld) [Volume fraction] 40.3 % 34.0-46.4 [facility] Laboratory - Hematology and Cell countsOrdered By: Jonah Carney on 05-04-2021 Nucleated RBC/100 WBC (Bld) [Ratio] 0.1 % 0-0.5 [facility] Lymphocytes Auto (Bld) [#/Vo l]Ordered By: Jonah Carney on 05-04-2021 Lymphocytes (Bld) [#/Vol] 1.6 10*3/uL 1.00-4.8 [facility] Lymphocytes/100 WBC Auto (Bl d)Ordered By: Jonah Carney on 05-04-2021 Lymphocytes/100 WBC (Bld) 28.0 % [facility] MCH Auto (RBC) [Entitic mass ]Ordered By: Jonah Carney on 05-04-2021 MCH (RBC) [Entitic mass] 31.8 pg 24.7-34.3 [facility] MCHC Auto (RBC) [Mass/Vol]Or dered By: Jonah Carney on 05-04-2021 MCHC (RBC) [Mass/Vol] 33.6 g/dL 32.0-35.0 [facility] MCV Auto (RBC) [Entitic vol] Ordered By: Jonah Carney on 05-04-2021 MCV (RBC) [Entitic vol] 94.7 fL 80-100 [facility] Monocytes Auto (Bld) [#/Vol] Ordered By: Jonah Carney on 05-04-2021 Monocytes (Bld) [#/Vol] 0.5 10*3/uL 0.0-0.8 [facility] Monocytes/100 WBC Auto (Bld) Ordered By: Jonah Carney on 05-04-2021 Monocytes/100 WBC (Bld) 8.4 % [facility] Neutrophils Auto (Bld) [#/Vo l]Ordered By: Jonah Carney on 05-04-2021 Neutrophils (Bld) [#/Vol] 3.5 10*3/uL 1.8-7.7 [facility] Neutrophils/100 WBC Auto (Bl d)Ordered By: Jonah Carney on 05-04-2021 Neutrophils/100 WBC (Bld) 62.1 % [facility] No Panel InformationOrdered By: Jonah Carney on 05-04-2021 Estimated GFR () 44 mL/Min [facility] Comment on above: GFR estimated refere nce range: According to KDOQI guidelines, <60 ml/min/1.73m2 is sufficient to diagnose a patient with chronic kidney disease. Pharmacy Creatinine Clearance (Chem N/A [facility] Platelet mean volume Auto (B ld) [Entitic vol]Ordered By: Jonah Carney on 05-04-2021 Platelet mean volume (Bld) [Entitic vol] 8.8 fL 6.3-10.7 [facility] Platelets Auto (Bld) [#/Vol] Ordered By: Jonah Carney on 05-04-2021 Platelets (Bld) [#/Vol] 209 10*3/uL 150-450 [facility] RBC Auto (Bld) [#/Vol]Ordere d By: Jonah Carney on 05-04-2021 RBC (Bld) [#/Vol] 4.25 10*6/uL 3.60-5.00 [facility] Serum or plasma calcium freeman urement (mass/volume)Ordered By: Jonah Carney on 05-04-2021 Calcium [Mass/Vol] 9.8 mg/dL 8.2-10.2 [facility] Serum or plasma chloride jacqui surement (moles/volume)Ordered By: Jonah Carney on 05-04-2021 Chloride [Moles/Vol] 101 mmol/L 95-114 [facility] Serum or plasma glucose freeman urement (mass/volume)Ordered By: Jonah Carney on 05-04-2021 Glucose [Mass/Vol] 149 mg/dL 70-100 [facility] Comment on above: ADA recommended refe rence rangeRandom Glucose Reference Range is dependent on time and content of last meal. Glucose of more than 200 mg/dL in a nonstressed, ambulatory subject supports the diagnosis of Diabetes Mellitus. Serum or plasma potassium me asurement (moles/volume)Ordered By: Jonah Carney on 05-04-2021 Potassium [Moles/Vol] 3.7 mmol/L 3.5-5.1 [facility] Serum or plasma sodium measu rement (moles/volume)Ordered By: Jonah Carney on 05-04-2021 Sodium [Moles/Vol] 141 mmol/L 136-146 [facility] Serum or plasma total carbon dioxide measurement (moles/volume)Ordered By: Jonah Carney on 05-04-2021 CO2 [Moles/Vol] 28.5 mmol/L 22.0-30.0 [place] Serum or plasma urea nitroge n measurement (mass/volume)Ordered By: Jonah Carney on 05-04-2021 Urea nitrogen [Mass/Vol] 32 mg/dL 9- [facility] Vital Signs Date Time Vital Sign Value Performing Clinician Facility 08-01-2023 14:16-0400 Body height 157.5 cm Narendra Dao MD Work Phone: [facility] 08-01-2023 14:16-0400 Body mass index (BMI) [Ratio] 40.19 kg/m2 Narendra Dao MD Work Phone: [facility] 08-01-2023 14:16-0400 Body temperature 98.01 [degF] Narendra Dao MD Work Phone: [facility] 08-01-2023 14:16-0400 Body weight 99.7 kg Narendra Dao MD Work Phone: [facility] 08-01-2023 14:16-0400 Diastolic blood pressure 70 mm[Hg] Narendra Dao MD Work Phone: [facility] 08-01-2023 14:16-0400 Heart rate 73 /min Narendra Dao MD Work Phone: [facility] 08-01-2023 14:16-0400 Respiratory rate 16 /min Narendra Dao MD Work Phone: [facility] 08-01-2023 14:16-0400 SaO2% (BldA) [Mass fraction] 97 % Narendra Dao MD Work Phone: [facility] 08-01-2023 14:16-0400 Systolic blood pressure 113 mm[Hg] Narendra Dao MD Work Phone: [facility] 06-08-2023 15:34-0400 Body height 157.5 cm Narendra Dao MD Work Phone: [facility] 06-08-2023 15:34-0400 Body temperature 97.5 [degF] Narendra Dao MD Work Phone: [facility] 06-08-2023 15:34-0400 Body weight 99.9 kg Narendra Dao MD Work Phone: [facility] 06-08-2023 15:34-0400 Diastolic blood pressure 51 mm[Hg] Narendra Dao MD Work Phone: [facility] 06-08-2023 15:34-0400 Heart rate 77 /min Narendra Dao MD Work Phone: [facility] 06-08-2023 15:34-0400 Respiratory rate 16 /min Narendra Dao MD Work Phone: [facility] 06-08-2023 15:34-0400 SaO2% (BldA) [Mass fraction] 95 % Narendra Dao MD Work Phone: [facility] 06-08-2023 15:34-0400 Systolic blood pressure 142 mm[Hg] Narendra Dao MD Work Phone: [facility] 05-02-2023 13:23-0500 Body height 157.5 cm Narendra Dao MD Work Phone: [facility] 05-02-2023 13:23-0500 Body temperature 97.9 [degF] Narendra Dao MD Work Phone: [facility] 05-02-2023 13:23-0500 Body weight 97.9 kg Narendra Dao MD Work Phone: [facility] 05-02-2023 13:23-0500 Diastolic blood pressure 57 mm[Hg] Narendra Dao MD Work Phone: [facility] 05-02-2023 13:23-0500 Heart rate 67 /min Narendra Dao MD Work Phone: [facility] 05-02-2023 13:23-0500 Respiratory rate 18 /min Narendra Dao MD Work Phone: [facility] 05-02-2023 13:23-0500 SaO2% (BldA) [Mass fraction] 99 % Narendra Dao MD Work Phone: [facility] 05-02-2023 13:23-0500 Systolic blood pressure 125 mm[Hg] Narendra Dao MD Work Phone: [facility] 04-11-2023 12:53-0500 Body height 157.5 cm Zack Quinton PA-C Work Phone: [facility] 04-11-2023 12:53-0500 Body temperature 97.11 [degF] Zack Quinton PA-C Work Phone: [facility] 04-11-2023 12:53-0500 Body weight 97 kg Zack Quinton PA-C Work Phone: [facility] 04-11-2023 12:53-0500 Diastolic blood pressure 64 mm[Hg] Zack Quinton PA-C Work Phone: [facility] 04-11-2023 12:53-0500 Heart rate 74 /min Zack Quinton PA-C Work Phone: [facility] 04-11-2023 12:53-0500 Respiratory rate 18 /min Zack Quinton PA-C Work Phone: [facility] 04-11-2023 12:53-0500 SaO2% (BldA) [Mass fraction] 96 % Zack Quinton PA-C Work Phone: [facility] 04-11-2023 12:53-0500 Systolic blood pressure 117 mm[Hg] Zack Quinton PA-C Work Phone: [facility] 02-11-2023 09:44-0500 Body temperature 97 [degF] Reece Leach MD Work Phone: [facility] 02-11-2023 09:44-0500 Body weight 96 kg Reece Leach MD Work Phone: [facility] 02-11-2023 09:44-0500 Diastolic blood pressure 75 mm[Hg] Reece Leach MD Work Phone: [facility] 02-11-2023 09:44-0500 Heart rate 72 /min Reece Leach MD Work Phone: [facility] 02-11-2023 09:44-0500 Respiratory rate 16 /min Reece Leach MD Work Phone: [facility] 02-11-2023 09:44-0500 SaO2% (BldA) [Mass fraction] 99 % Reece Leach MD Work Phone: [facility] 02-11-2023 09:44-0500 Systolic blood pressure 108 mm[Hg] Reece Leach MD Work Phone: [facility] 01-27-2023 15:15-0500 Body height 157.5 cm Narendra Dao MD Work Phone: [facility] 01-27-2023 15:15-0500 Body temperature 97.9 [degF] Narendra Dao MD Work Phone: [facility] 01-27-2023 15:15-0500 Body weight 95.89 kg Narendra Dao MD Work Phone: [facility] 01-27-2023 15:15-0500 Diastolic blood pressure 63 mm[Hg] Narendra Dao MD Work Phone: [facility] 01-27-2023 15:15-0500 Heart rate 71 /min Narendra Dao MD Work Phone: [facility] 01-27-2023 15:15-0500 Respiratory rate 18 /min Narendra Dao MD Work Phone: [facility] 01-27-2023 15:15-0500 SaO2% (BldA) [Mass fraction] 96 % Narendra Dao MD Work Phone: [facility] 01-27-2023 15:15-0500 Systolic blood pressure 134 mm[Hg] Narendra Dao MD Work Phone: [facility] 10-18-2022 12:55-0400 Body height 157.5 cm Narendra Dao MD Work Phone: [facility] 10-18-2022 12:55-0400 Body temperature 97.3 [degF] Narendra Dao MD Work Phone: [facility] 10-18-2022 12:55-0400 Body weight 97.89 kg Narendra Dao MD Work Phone: [facility] 10-18-2022 12:55-0400 Diastolic blood pressure 70 mm[Hg] Narendra Dao MD Work Phone: [facility] 10-18-2022 12:55-0400 Heart rate 69 /min Narendra Dao MD Work Phone: [facility] 10-18-2022 12:55-0400 Respiratory rate 166 /min Narendra Dao MD Work Phone: [facility] 10-18-2022 12:55-0400 SaO2% (BldA) [Mass fraction] 96 % Narendra Dao MD Work Phone: [facility] 10-18-2022 12:55-0400 Systolic blood pressure 122 mm[Hg] Narendra Dao MD Work Phone: [facility] 10-07-2022 10:02-0400 Body weight 99.34 kg Shahana Mercedes MD Work Phone: [facility] 10-05-2022 10:59-0400 Body height 157.5 cm Zack Winston PA-C Work Phone: [facility] 10-05-2022 10:59-0400 Body temperature 97.11 [degF] Zack Quinton PA-C Work Phone: [facility] 10-05-2022 10:59-0400 Body weight 99.7 kg Zack Quinton PA-C Work Phone: [facility] 10-05-2022 10:59-0400 Diastolic blood pressure 58 mm[Hg] Zack Quinton PA-C Work Phone: [facility] 10-05-2022 10:59-0400 Heart rate 58 /min Zack Quinton PA-C Work Phone: [facility] 10-05-2022 10:59-0400 Respiratory rate 16 /min Zack Quinton PA-C Work Phone: [facility] 10-05-2022 10:59-0400 SaO2% (BldA) [Mass fraction] 95 % Zack Quinton PA-C Work Phone: [facility] 10-05-2022 10:59-0400 Systolic blood pressure 132 mm[Hg] Zack Quinton PA-C Work Phone: [facility] 08-30-2022 14:41-0400 Body height 157.5 cm Narendra Dao MD Work Phone: [facility] 08-30-2022 14:41-0400 Body temperature 97.3 [degF] Narendra Dao MD Work Phone: [facility] 08-30-2022 14:41-0400 Body weight 101.61 kg Narendra Dao MD Work Phone: [facility] 08-30-2022 14:41-0400 Diastolic blood pressure 63 mm[Hg] Narendra Dao MD Work Phone: [facility] 08-30-2022 14:41-0400 Heart rate 70 /min Narendra Dao MD Work Phone: [facility] 08-30-2022 14:41-0400 Respiratory rate 16 /min Narendra Dao MD Work Phone: [facility] 08-30-2022 14:41-0400 SaO2% (BldA) [Mass fraction] 96 % Narendra Dao MD Work Phone: [facility] 08-30-2022 14:41-0400 Systolic blood pressure 130 mm[Hg] Narendra Dao MD Work Phone: [facility] 08-12-2022 15:38-0400 Body temperature 97.11 [degF] Reece Leach MD Work Phone: [facility] 08-12-2022 15:38-0400 Body weight 102.06 kg Reeec Leach MD Work Phone: [facility] 08-12-2022 15:38-0400 Diastolic blood pressure 78 mm[Hg] Reece Leach MD Work Phone: [facility] 08-12-2022 15:38-0400 Heart rate 71 /min Reece Leach MD Work Phone: [facility] 08-12-2022 15:38-0400 Respiratory rate 20 /min Reece Leach MD Work Phone: [facility] 08-12-2022 15:38-0400 SaO2% (BldA) [Mass fraction] 98 % Reece Leach MD Work Phone: [facility] 08-12-2022 15:38-0400 Systolic blood pressure 143 mm[Hg] Reece Leach MD Work Phone: [facility] 07-29-2022 08:47-0400 Body height 157.5 cm Reece Leach MD Work Phone: [facility] 07-29-2022 08:47-0400 Body temperature 97.7 [degF] Reece Leach MD Work Phone: [facility] 07-29-2022 08:47-0400 Body weight 100.7 kg Reece Leach MD Work Phone: [facility] 07-29-2022 08:47-0400 Diastolic blood pressure 75 mm[Hg] Reece Leach MD Work Phone: [facility] 07-29-2022 08:47-0400 Heart rate 69 /min Reece Leach MD Work Phone: [facility] 07-29-2022 08:47-0400 Respiratory rate 16 /min Reece Leach MD Work Phone: [facility] 07-29-2022 08:47-0400 SaO2% (BldA) [Mass fraction] 97 % Reece Leach MD Work Phone: [facility] 07-29-2022 08:47-0400 Systolic blood pressure 128 mm[Hg] Reece Leach MD Work Phone: [facility] 07-23-2022 08:32-0400 Body height 157.5 cm Narendra Dao MD Work Phone: [facility] 07-23-2022 08:32-0400 Body temperature 97.5 [degF] Narendra Dao MD Work Phone: [facility] 07-23-2022 08:32-0400 Body weight 101.24 kg Narendra Dao MD Work Phone: [facility] 07-23-2022 08:32-0400 Diastolic blood pressure 72 mm[Hg] Narendra Dao MD Work Phone: [facility] 07-23-2022 08:32-0400 Heart rate 58 /min Narendra Dao MD Work Phone: [facility] 07-23-2022 08:32-0400 Respiratory rate 16 /min Narendra Dao MD Work Phone: [facility] 07-23-2022 08:32-0400 SaO2% (BldA) [Mass fraction] 96 % Narendra Dao MD Work Phone: [facility] 07-23-2022 08:32-0400 Systolic blood pressure 133 mm[Hg] Narendra Dao MD Work Phone: [facility] 07-14-2022 09:00-0400 Body temperature 97.59 [degF] Reece Leach MD Work Phone: [facility] 07-14-2022 09:00-0400 Body weight 102.06 kg Reece Leach MD Work Phone: [facility] 07-14-2022 09:00-0400 Diastolic blood pressure 67 mm[Hg] Reece Leach MD Work Phone: [facility] 07-14-2022 09:00-0400 Heart rate 65 /min Reece Leach MD Work Phone: [facility] 07-14-2022 09:00-0400 Respiratory rate 16 /min Reece Leach MD Work Phone: [facility] 07-14-2022 09:00-0400 SaO2% (BldA) [Mass fraction] 99 % Reece Leach MD Work Phone: [facility] 07-14-2022 09:00-0400 Systolic blood pressure 113 mm[Hg] Reece Leach MD Work Phone: [facility] 06-30-2022 09:49-0400 Body temperature 97.39 [degF] Reece Leach MD Work Phone: [facility] 06-30-2022 09:49-0400 Body weight 101.15 kg Reece Leach MD Work Phone: [facility] 06-30-2022 09:49-0400 Diastolic blood pressure 62 mm[Hg] Reece Leach MD Work Phone: [facility] 06-30-2022 09:49-0400 Heart rate 69 /min Reece Leach MD Work Phone: [facility] 06-30-2022 09:49-0400 Respiratory rate 18 /min Reece Leach MD Work Phone: [facility] 06-30-2022 09:49-0400 SaO2% (BldA) [Mass fraction] 96 % Reece Leach MD Work Phone: [facility] 06-30-2022 09:49-0400 Systolic blood pressure 117 mm[Hg] Reece Leach MD Work Phone: [facility] 06-24-2022 10:32-0400 Body weight 101.15 kg Gera Phillips PA-C Work Phone: [facility] 06-24-2022 08:37-0400 Body temperature 97 [degF] Reece Leach MD Work Phone: [facility] 06-24-2022 08:37-0400 Body weight 101.15 kg Reece Leach MD Work Phone: [facility] 06-24-2022 08:37-0400 Diastolic blood pressure 73 mm[Hg] Reece Leach MD Work Phone: [facility] 06-24-2022 08:37-0400 Heart rate 64 /min Reece Leach MD Work Phone: [facility] 06-24-2022 08:37-0400 Respiratory rate 18 /min Reece Leach MD Work Phone: [facility] 06-24-2022 08:37-0400 SaO2% (BldA) [Mass fraction] 97 % Reece Leach MD Work Phone: [facility] 06-24-2022 08:37-0400 Systolic blood pressure 139 mm[Hg] Reece Leach MD Work Phone: [facility] 05-27-2022 11:19-0400 Body temperature 97.3 [degF] Gera Phillips PA-C Work Phone: [facility] 05-24-2022 10:35-0400 Diastolic blood pressure 72 mm[Hg] Joaquín Mahmood Jr., MD Work Phone: [facility] 05-24-2022 10:35-0400 Heart rate 60 /min Joaquín Mahmood Jr., MD Work Phone: [facility] 05-24-2022 10:35-0400 Respiratory rate 17 /min Joaquín Mahmood Jr., MD Work Phone: [facility] 05-24-2022 10:35-0400 SaO2% (BldA) [Mass fraction] 100 % Joaquín Mahmood Jr., MD Work Phone: [facility] 05-24-2022 10:35-0400 Systolic blood pressure 110 mm[Hg] Joaquín Mahmood Jr., MD Work Phone: [facility] 05-24-2022 10:11-0400 Body temperature 97.11 [degF] Joaquín Mahmood Jr., MD Work Phone: [facility] 05-24-2022 09:30-0400 Body weight 100.25 kg Joaquín Mahmood Jr., MD Work Phone: [facility] 05-20-2022 10:56-0400 Body height 157.5 cm Gera Phillips PA-C Work Phone: [facility] 05-20-2022 10:56-0400 Body temperature 98.1 [degF] Gera [employer] Work Phone: [facility] 05-20-2022 10:56-0400 Body weight 100.25 kg Gera [employer] Work Phone: [facility] 05-14-2022 10:16-0400 Body height 157.5 cm Narendra Dao MD Work Phone: [facility] 05-14-2022 10:16-0400 Body temperature 97.59 [degF] Narendra Dao MD Work Phone: [facility] 05-14-2022 10:16-0400 Body weight 100.43 kg Narendra Dao MD Work Phone: [facility] 05-14-2022 10:16-0400 Diastolic blood pressure 69 mm[Hg] Narednra Dao MD Work Phone: [facility] 05-14-2022 10:16-0400 Heart rate 72 /min Narendra Dao MD Work Phone: [facility] 05-14-2022 10:16-0400 Respiratory rate 18 /min Narendra Dao MD Work Phone: [facility] 05-14-2022 10:16-0400 SaO2% (BldA) [Mass fraction] 97 % Narendra Dao MD Work Phone: [facility] 05-14-2022 10:16-0400 Systolic blood pressure 129 mm[Hg] Narendra Dao MD Work Phone: [facility] 04-29-2022 13:41-0500 Body height 157.5 cm Gera Phillips PA-C Work Phone: [facility] 04-29-2022 13:41-0500 Body temperature 97.59 [degF] Gera [employer]becca Work Phone: [facility] 04-29-2022 13:41-0500 Body weight 99.84 kg Gera Phillips PA-C Work Phone: [facility] 04-22-2022 09:00-0500 Body temperature 97.59 [degF] Reece Leach MD Work Phone: [facility] 04-22-2022 09:00-0500 Body weight 100.15 kg Reece Leach MD Work Phone: [facility] 04-22-2022 09:00-0500 Diastolic blood pressure 66 mm[Hg] Reece Leach MD Work Phone: [facility] 04-22-2022 09:00-0500 Heart rate 71 /min Reece Leach MD Work Phone: [facility] 04-22-2022 09:00-0500 Respiratory rate 16 /min Reece Leach MD Work Phone: [facility] 04-22-2022 09:00-0500 SaO2% (BldA) [Mass fraction] 98 % Reece Leach MD Work Phone: [facility] 04-22-2022 09:00-0500 Systolic blood pressure 114 mm[Hg] Reece Leach MD Work Phone: [facility] 04-15-2022 07:50-0500 Body height 157.5 cm Gera Phillips PA-C Work Phone: [facility] 04-15-2022 07:50-0500 Body weight 99.79 kg Gera [employer] Work Phone: [facility] 04-02-2022 10:39-0500 Body height 157.5 cm Narendra Dao MD Work Phone: [facility] 04-02-2022 10:39-0500 Body temperature 97.3 [degF] Narendra Dao MD Work Phone: [facility] 04-02-2022 10:39-0500 Body weight 100.52 kg Narendra Dao MD Work Phone: [facility] 04-02-2022 10:39-0500 Diastolic blood pressure 91 mm[Hg] Narendra Dao MD Work Phone: [facility] 04-02-2022 10:39-0500 Heart rate 110 /min Narendra Dao MD Work Phone: [facility] 04-02-2022 10:39-0500 Respiratory rate 16 /min Narendra Dao MD Work Phone: [facility] 04-02-2022 10:39-0500 SaO2% (BldA) [Mass fraction] 96 % Narendra Dao MD Work Phone: [facility] 04-02-2022 10:39-0500 Systolic blood pressure 130 mm[Hg] Narendra Dao MD Work Phone: [facility] 04-01-2022 14:08-0500 Body temperature 96.6 [degF] Gera Phillips PA-C Work Phone: [facility] 03-22-2022 09:48-0500 Body height 157.5 cm Jonny Shaw MD Work Phone: [facility] 03-22-2022 09:48-0500 Body temperature 97.2 [degF] Jonny Shaw MD Work Phone: [facility] 03-22-2022 09:48-0500 Body weight 100.79 kg Jonny Shaw MD Work Phone: [facility] 03-22-2022 09:48-0500 Diastolic blood pressure 66 mm[Hg] Jonny Shaw MD Work Phone: [facility] 03-22-2022 09:48-0500 Heart rate 77 /min Jonny Shaw MD Work Phone: [facility] 03-22-2022 09:48-0500 SaO2% (BldA) [Mass fraction] 98 % Jonny Shaw MD Work Phone: [facility] 03-22-2022 09:48-0500 Systolic blood pressure 142 mm[Hg] Jonny Shaw MD Work Phone: [facility] 03-19-2022 10:45-0500 Diastolic blood pressure 56 mm[Hg] Pacc 4 Work Phone: [facility] 03-19-2022 10:45-0500 Systolic blood pressure 110 mm[Hg] Pacc 4 Work Phone: [facility] 03-19-2022 10:37-0500 Body height 157.5 cm Pacc 4 Work Phone: [facility] 03-19-2022 10:37-0500 Body temperature 97 [degF] Pacc 4 Work Phone: [facility] 03-19-2022 10:37-0500 Body weight 102.06 kg Pacc 4 Work Phone: [facility] 03-19-2022 10:37-0500 Heart rate 77 /min Pacc 4 Work Phone: [facility] 03-19-2022 10:37-0500 Respiratory rate 16 /min Pacc 4 Work Phone: [facility] 03-19-2022 10:37-0500 SaO2% (BldA) [Mass fraction] 96 % Pac 4 Work Phone: [facility] 03-11-2022 14:46-0500 Body height 157.5 cm Shahana Mercedes MD Work Phone: [facility] 03-11-2022 14:46-0500 Body weight 99.79 kg Shahana Mercedes MD Work Phone: [facility] 03-11-2022 14:46-0500 Diastolic blood pressure 60 mm[Hg] Shahana Mercedes MD Work Phone: [facility] 03-11-2022 14:46-0500 Systolic blood pressure 120 mm[Hg] Shahana Mercedes MD Work Phone: [facility] 02-12-2022 08:55-0500 Body height 158 cm Dipti Merritt APRN.SECRETARIAL TEACHER Work Phone: [facility] 02-12-2022 08:55-0500 Body temperature 98.01 [degF] Dipti Merritt APRN.SECRETARIAL TEACHER Work Phone: [facility] 02-12-2022 08:55-0500 Body weight 99.43 kg Dipti Merritt APRN.SECRETARIAL TEACHER Work Phone: [facility] 02-12-2022 08:55-0500 Diastolic blood pressure 59 mm[Hg] Dipti Merritt APRN.SECRETARIAL TEACHER Work Phone: [facility] 02-12-2022 08:55-0500 Heart rate 76 /min Dipti Merritt MILKING WORKER.SECRETARIAL TEACHER Work Phone: [facility] 02-12-2022 08:55-0500 Respiratory rate 16 /min Dipti Merritt MILKING WORKER.SECRETARIAL TEACHER Work Phone: [facility] 02-12-2022 08:55-0500 SaO2% (BldA) [Mass fraction] 95 % Dipti Merritt MILKING WORKER.SECRETARIAL TEACHER Work Phone: [facility] 02-12-2022 08:55-0500 Systolic blood pressure 123 mm[Hg] Dipti Merritt MILKING WORKER.SECRETARIAL TEACHER Work Phone: [facility] 02-05-2022 09:07-0500 Body height 158 cm Narendra Dao MD Work Phone: [facility] 02-05-2022 09:07-0500 Body temperature 97.81 [degF] Narendra Dao MD Work Phone: [facility] 02-05-2022 09:07-0500 Body weight 99.97 kg Narendra Dao MD Work Phone: [facility] 02-05-2022 09:07-0500 Diastolic blood pressure 60 mm[Hg] Narendra Dao MD Work Phone: [facility] 02-05-2022 09:07-0500 Heart rate 50 /min Narendra Dao MD Work Phone: [facility] 02-05-2022 09:07-0500 Respiratory rate 16 /min Narendra Dao MD Work Phone: [facility] 02-05-2022 09:07-0500 SaO2% (BldA) [Mass fraction] 94 % Narendra Dao MD Work Phone: [facility] 02-05-2022 09:07-0500 Systolic blood pressure 100 mm[Hg] Narendra Dao MD Work Phone: [facility] 01-15-2022 10:28-0500 Body height 158 cm Dipti Merritt APRN.SECRETARIAL TEACHER Work Phone: [facility] 01-15-2022 10:28-0500 Body temperature 97.5 [degF] Dipti Merritt APRN.SECRETARIAL TEACHER Work Phone: [facility] 01-15-2022 10:28-0500 Body weight 101.79 kg Dipti Merritt APRN.SECRETARIAL TEACHER Work Phone: [facility] 01-15-2022 10:28-0500 Diastolic blood pressure 96 mm[Hg] Dipti Merritt MILKING WORKER.SECRETARIAL TEACHER Work Phone: [facility] 01-15-2022 10:28-0500 Heart rate 85 /min Dipti Merritt APRN.SECRETARIAL TEACHER Work Phone: [facility] 01-15-2022 10:28-0500 Respiratory rate 16 /min Dipti Merritt APRN.SECRETARIAL TEACHER Work Phone: [facility] 01-15-2022 10:28-0500 SaO2% (BldA) [Mass fraction] 95 % Dipti Merritt MILKING WORKER.SECRETARIAL TEACHER Work Phone: [facility] 01-15-2022 10:28-0500 Systolic blood pressure 125 mm[Hg] Dipti Merritt MILKING WORKER.SECRETARIAL TEACHER Work Phone: [facility] 12-14-2021 08:59-0400 Body height 158 cm Zack Quinton PA-C Work Phone: [facility] 12-14-2021 08:59-0400 Body temperature 97.5 [degF] Zack Quinton PA-C Work Phone: [facility] 12-14-2021 08:59-0400 Body weight 99.79 kg Zack Quinton PA-C Work Phone: [facility] 12-14-2021 08:59-0400 Diastolic blood pressure 59 mm[Hg] Zack Quinton PA-C Work Phone: [facility] 12-14-2021 08:59-0400 Heart rate 76 /min Zack Quinton PA-C Work Phone: [facility] 12-14-2021 08:59-0400 Respiratory rate 16 /min Zack Quinton PA-C Work Phone: [facility] 12-14-2021 08:59-0400 SaO2% (BldA) [Mass fraction] 95 % Zack Quinton PA-C Work Phone: [facility] 12-14-2021 08:59-0400 Systolic blood pressure 114 mm[Hg] Zack Quinton PA-C Work Phone: [facility] 12-04-2021 08:58-0400 Body height 158 cm Narendra Dao MD Work Phone: [facility] 12-04-2021 08:58-0400 Body temperature 97.39 [degF] Narendra Dao MD Work Phone: [facility] 12-04-2021 08:58-0400 Body weight 101.15 kg Narendra Dao MD Work Phone: [facility] 12-04-2021 08:58-0400 Diastolic blood pressure 69 mm[Hg] Narendra Dao MD Work Phone: [facility] 12-04-2021 08:58-0400 Heart rate 76 /min Narendra Dao MD Work Phone: [facility] 12-04-2021 08:58-0400 Respiratory rate 16 /min Narendra Dao MD Work Phone: [facility] 12-04-2021 08:58-0400 SaO2% (BldA) [Mass fraction] 95 % Narendra Dao MD Work Phone: [facility] 12-04-2021 08:58-0400 Systolic blood pressure 141 mm[Hg] Narendra Dao MD Work Phone: [facility] 11-18-2021 12:49-0400 Body height 157.5 cm Narendra Dao MD Work Phone: [facility] 11-18-2021 12:49-0400 Body temperature 97.59 [degF] Narendra Dao MD Work Phone: [facility] 11-18-2021 12:49-0400 Body weight 100.34 kg Narendra Dao MD Work Phone: [facility] 11-18-2021 12:49-0400 Diastolic blood pressure 67 mm[Hg] Narendra Dao MD Work Phone: [facility] 11-18-2021 12:49-0400 Heart rate 75 /min Narendra Dao MD Work Phone: [facility] 11-18-2021 12:49-0400 Respiratory rate 16 /min Narendra Dao MD Work Phone: [facility] 11-18-2021 12:49-0400 SaO2% (BldA) [Mass fraction] 99 % Narendra Dao MD Work Phone: [facility] 11-18-2021 12:49-0400 Systolic blood pressure 123 mm[Hg] Narendra Dao MD Work Phone: [facility] 11-12-2021 11:05-0400 Body height 157.5 cm Shahana Mercedes MD Work Phone: [facility] 11-12-2021 11:05-0400 Body weight 101.61 kg Shahana Mercedes MD Work Phone: [facility] 11-12-2021 11:05-0400 Diastolic blood pressure 70 mm[Hg] Shahana Mercedes MD Work Phone: [facility] 11-12-2021 11:05-0400 Systolic blood pressure 120 mm[Hg] Shahana Mercedes MD Work Phone: [facility] 10-21-2021 15:54-0400 Body height 158.3 cm Narendra Dao MD Work Phone: [facility] 10-21-2021 15:54-0400 Body temperature 97.9 [degF] Narendra Dao MD Work Phone: [facility] 10-21-2021 15:54-0400 Body weight 101.79 kg Narendra Dao MD Work Phone: [facility] 10-21-2021 15:54-0400 Diastolic blood pressure 61 mm[Hg] Narendra Dao MD Work Phone: [facility] 10-21-2021 15:54-0400 Heart rate 77 /min Narendra Dao MD Work Phone: [facility] 10-21-2021 15:54-0400 Respiratory rate 16 /min Narendra Dao MD Work Phone: [facility] 10-21-2021 15:54-0400 SaO2% (BldA) [Mass fraction] 94 % Narendra Dao MD Work Phone: [facility] 10-21-2021 15:54-0400 Systolic blood pressure 123 mm[Hg] Narendra Dao MD Work Phone: [facility] 10-02-2021 11:00-0400 Body temperature 98.4 [degF] MD Shaikh West Work Phone: [facility] 10-02-2021 11:00-0400 Diastolic blood pressure 86 mm[Hg] MD Shaikh West Work Phone: [facility] 10-02-2021 11:00-0400 Heart rate 66 /min MD Shaikh West Work Phone: [facility] 10-02-2021 11:00-0400 Respiratory rate 16 /min MD Shaikh West Work Phone: [facility] 10-02-2021 11:00-0400 SaO2% (BldA) [Mass fraction] 96 % MD Shaikh West Work Phone: [facility] 10-02-2021 11:00-0400 Systolic blood pressure 168 mm[Hg] MD Shaikh West Work Phone: [facility] 05-12-2021 14:15-0400 Body height 162.56 cm Jonah Olexa Other [place] Other 05-12-2021 14:15-0400 Body mass index (BMI) [Ratio] 38.17 kg/m2 Jonah Olexa Other [place] Other 05-12-2021 14:15-0400 Body weight 100.88 kg Jonah Olexa Other [place] Other 2021 14:15-0500 Body height 162.56 cm Jonah Olexa Other [place] Other 2021 14:15-0500 Body mass index (BMI) [Ratio] 37.93 kg/m2 Jonah Olexa Other [place] Other 2021 14:15-0500 Body weight 100.25 kg Jonah Olexa Other [place] Other 03-17-2021 11:00-0500 Body height 162.56 cm Jonah Olexa Other [place] Other 03-17-2021 11:00-0500 Body mass index (BMI) [Ratio] 37.93 kg/m2 Jonah Olexa Other [place] Other 03-17-2021 11:00-0500 Body weight 100.25 kg Jonah Olexa Other [place] Other Encounters Encounter Date Encounter Type Care Provider Facility Start: 08-02-2023 End: 08-02-2023 ambulatory Rickychelsea Carlos Manuel [facility] Hematology/Oncology Comment on above: Muscle soreness (Tete ashu Dx) Start: 08-02-2023 End: 08-02-2023 Patient encounter procedure Marsha Horowitz [facility] Hematology/Oncology Start: 08-01-2023 End: 08-01-2023 Office outpatient visit 40 minutes Narendra Dao MD Work Phone: Hematology/Oncology Comment on above: Breast cancer metast asized to axillary lymph node, right (HCC) (Primary Dx); Malignant neoplasm of upper-outer quadrant of right breast in female, estrogen receptor positive (HCC); Muscle aches Start: 08-01-2023 End: 08-01-2023 ambulatory [facility] Work Phone: Hematology/Oncology Comment on above: Breast cancer metast asized to axillary lymph node, right (HCC) Start: 07-29-2023 Refill Narendra pereira MD Work Phone: Hematology/Oncology Comment on above: Refill Request Start: 07-05-2023 End: 07-05-2023 Patient encounter procedure Marsha Horowitz [facility] Hematology/Oncology Start: 07-05-2023 End: 07-20-2023 ambulatory Rickychelsea Horowitz [facility] Hematology/Oncology Comment on above: Muscle soreness (Tete ashu Dx) Start: 06-30-2023 Social Work Shereen MONROYW Hematolo gy/Oncology Start: 06-29-2023 End: 06-29-2023 ambulatory [facility] Work Phone: Hematology/Oncology Comment on above: Malignant neoplasm o f upper-outer quadrant of right breast in female, estrogen receptor positive (HCC); Breast cancer metastasized to axillary lymph node, right (HCC); Herpes zoster without complication Start: 06-09-2023 End: 06-10-2023 ambulatory Richard Siegel Facility:[facility] Start: 06-09-2023 Telephone encounter Miriam coello RN Work Phone: Hematology/Oncology Comment on above: Care Coordination (B 12 Question) Start: 06-08-2023 End: 06-08-2023 Office outpatient visit 25 minutes Narendra Dao MD Work Phone: Hematology/Oncology Comment on above: Breast cancer metast asized to axillary lymph node, right (HCC) (Primary Dx); Other drug-induced neutropenia (HCC); Stage 3b chronic kidney disease (HCC) Start: 06-08-2023 End: 06-08-2023 ambulatory [facility] Work Phone: Hematology/Oncology Comment on above: Breast cancer metast asized to axillary lymph node, right (HCC) Start: 05-18-2023 Telephone encounter Miriam coello RN Work Phone: Hematology/Oncology Comment on above: Care Coordination (H air Loss & Bone Pain) Start: 05-16-2023 End: 05-17-2023 ambulatory Narendra Dao MD Work Phone: Hematology/Oncology Comment on above: Malignant neoplasm o f upper-outer quadrant of right breast in female, estrogen receptor positive (HCC) (Primary Dx); Breast cancer metastasized to axillary lymph node, right (HCC); Stage 3 chronic kidney disease, unspecified whether stage 3a or 3b CKD (HCC) Start: 05-16-2023 End: 05-17-2023 Telemedicine consultation with patient Narendra Dao MD Work Phone: [employer] Start: 05-03-2023 End: 05-04-2023 ambulatory Nate Bobby Facility:[facility] Start: 05-03-2023 Telephone encounter Miriam coello RN Work Phone: Hematology/Oncology Comment on above: Care Coordination (M edication Question) Start: 05-02-2023 End: 05-02-2023 Office outpatient visit 25 minutes Narendra Dao MD Work Phone: Hematology/Oncology Comment on above: Malignant neoplasm o f upper-outer quadrant of right breast in female, estrogen receptor positive (HCC) (Primary Dx); Other drug-induced neutropenia (HCC); Major depressive disorder, recurrent episode, moderate (HCC); Breast cancer metastasized to axillary lymph node, right (HCC); Stage 3 chronic kidney disease, unspecified whether stage 3a or 3b CKD (HCC) Start: 05-02-2023 Telephone encounter Narendra armey MD Work Phone: [facility] Comment on above: Care Coordination (C T Results) Start: 05-02-2023 End: 05-02-2023 ambulatory NATE BOBBY Facility:[facility] Start: 04-11-2023 End: 04-11-2023 Visit (SP) Office Zack Winston PA-C Work Phone: Hematology/Oncology Comment on above: Malignant neoplasm o f upper-outer quadrant of right breast in female, estrogen receptor positive (HCC) (HCC) (Primary Dx); Platelets decreased (HCC); Other drug-induced neutropenia (HCC); Major depressive disorder, recurrent episode, moderate (HCC) Malignant neoplasm o f upper-outer quadrant of right breast in female, estrogen receptor positive (HCC) (HCC); Breast cancer metastasized to axillary lymph node, right (HCC); Cytopenia due to immunosupressive agent Start: 03-21-2023 End: 03-21-2023 ambulatory NARENDRA DAO Facility:[facility] Start: 02-24-2023 End: 02-25-2023 ambulatory NATE BOBBY Facility:[facility] Start: 02-24-2023 End: 02-24-2023 ambulatory NATE BOBBY Facility:[facility] Start: 02-17-2023 End: 02-17-2023 ambulatory NATE BOBBY Facility:[facility] Start: 02-11-2023 End: 02-11-2023 ambulatory NATE BOBBY Facility:[facility] Start: 02-11-2023 End: 02-11-2023 Patient encounter procedure Reece Leach MD Work Phone: Radiation Oncology Comment on above: Malignant neoplasm o f upper-outer quadrant of right breast in female, estrogen receptor positive (HCC) (HCC) (Primary Dx) Start: 02-07-2023 End: 02-08-2023 ambulatory Nate Bobby Facility:[facility] Yara singh Start: 01-31-2023 End: 02-01-2023 ambulatory Nate ReisThuan Bobby [place] Start: 01-31-2023 End: 01-31-2023 Lab Drop off Nate Bobby [facility] Start: 01-27-2023 End: 01-27-2023 Office outpatient visit 25 minutes Narendra Dao MD Work Phone: Hematology/Oncology Comment on above: Malignant neoplasm o f axillary tail of right breast (HCC) (Primary Dx); Lung nodules; Stage 3 chronic kidney disease, unspecified whether stage 3a or 3b CKD (HCC); Anemia, unspecified type Start: 01-27-2023 End: 01-27-2023 ambulatory [facility] Work Phone: Hematology/Oncology Comment on above: Malignant neoplasm o f axillary tail of right breast (HCC) Start: 01-08-2023 Refill Narendra pereira MD Work Phone: Hematology/Oncology Comment on above: Med Change Request Start: 01-07-2023 End: 01-07-2023 ambulatory DIPTI MERRITT Facility:[facility] Start: 01-03-2023 Refill Narendra pereira MD Work Phone: Hematology/Oncology Comment on above: Refill Request Start: 01-03-2023 End: 01-03-2023 ambulatory NATE BOBBY Facility:[facility] Start: 12-27-2022 Telephone encounter Miriam coello RN Work Phone: Hematology/Oncology Comment on above: Care Coordination (D iarrhea, Nausea, & Breast Changes) Start: 12-24-2022 Telephone encounter Dedra FITZPATRICK Work Phone: Hematology/Oncology Comment on above: Social Work Services (Mileage log for November 2022 faxed to Cancer Services at [phone].) Start: 12-21-2022 Patient encounter procedure Marsha Horowitz LMT Hematology/Oncology Comment on above: Muscle soreness (Tete ashu Dx) Start: 12-21-2022 End: 12-21-2022 ambulatory NATE Reis NEMAHA Facility:[facility] Start: 12-16-2022 Refill Narendra pereira MD Work Phone: Hematology/Oncology Comment on above: Refill Request Start: 12-14-2022 Patient encounter procedure Marsha Horowitz LMT Hematology/Oncology Comment on above: Muscle soreness (Tete ashu Dx) Start: 12-14-2022 End: 12-14-2022 ambulatory NATE Smiley NEMAHA Facility:[facility] Start: 12-13-2022 Telephone encounter Miriam coello RN Work Phone: Hematology/Oncology Comment on above: Care Coordination (P t Question) Start: 12-13-2022 End: 12-13-2022 ambulatory [facility] Work Phone: Hematology/Oncology Comment on above: Malignant neoplasm o f upper-outer quadrant of right breast in female, estrogen receptor positive (HCC) ; Breast cancer metastasized to axillary lymph node, right (HCC) Start: 11-30-2022 End: 11-30-2022 ambulatory NATELA NENA BOBBY Facility:[facility] Start: 11-23-2022 End: 11-23-2022 [place] Facility:[facility] Start: 11-16-2022 Patient encounter procedure Marsha Horowitz T Hematology/Oncology Comment on above: Muscle soreness (Tete ashu Dx) Start: 11-16-2022 End: [facility] Start: 11-15-2022 End: 11-15-2022 ambulatory [facility] Work Phone: Hematology/Oncology Comment on above: Malignant neoplasm o f upper-outer quadrant of right breast in female, estrogen receptor positive (HCC); Breast cancer metastasized to axillary lymph node, right (HCC); Herpes zoster without complication Start: 11-09-2022 Patient encounter procedure Marsha Horowitz T Hematology/Oncology Comment on above: Muscle soreness (Tete ashu Dx) Start: 11-09-2022 End: 11-09-2022 ambulatory NATE E NEMAHA Facility:[facility] Start: 11-08-2022 End: 11-09-2022 ambulatory Nate E. Mukund Facility:[facility] Yara singh Start: 10-22-2022 Social Work Shereen REED Hematolo gy/Oncology Start: 10-18-2022 End: 10-18-2022 Office outpatient visit 25 minutes Narendra Dao MD Work Phone: Hematology/Oncology Comment on above: Malignant neoplasm o f upper-outer quadrant of right breast in female, estrogen receptor positive (HCC) (Primary Dx); Breast cancer metastasized to axillary lymph node, right (HCC); Herpes zoster without complication Start: 10-18-2022 End: 10-18-2022 ambulatory [facility] Work Phone: Hematology/Oncology Comment on above: Malignant neoplasm o f upper-outer quadrant of right breast in female, estrogen receptor positive (HCC) Start: 10-07-2022 End: 10-07-2022 ambulatory GERA PHILLIPS Facility:[facility] Start: 10-07-2022 End: 10-07-2022 Patient encounter procedure Shahana Mercedes MD Work Phone: [facility] Comment on above: Malignant neoplasm o f upper-outer quadrant of right breast in female, estrogen receptor positive (HCC) (Primary Dx); Breast cancer metastasized to axillary lymph node, right (HCC) Start: 10-07-2022 End: 10-07-2022 Subsequent hospital visit by physician Screen/Diag Mammo [facility] 2 Work Phone: [facility] Start: 10-05-2022 End: 10-05-2022 ambulatory Zack Winston PA-C Work Phone: Hematology/Oncology Comment on above: Herpes zoster withou t complication (Primary Dx); Breast cancer metastasized to axillary lymph node, right (HCC) Start: 10-05-2022 End: 10-05-2022 Patient encounter procedure Zack Winston PA-C Work Phone: [facility] Start: 10-04-2022 Telephone encounter Miriam coello RN Work Phone: Hematology/Oncology Comment on above: Care Coordination (R chandan) Start: 09-30-2022 Telephone encounter Miriam coello RN Work Phone: Hematology/Oncology Comment on above: Care Coordination (R chandan) Start: 09-22-2022 End: 09-22-2022 Refill Samreen Jett [facility] Work Phone: [facility] Comment on above: Refill Request Start: 09-20-2022 End: 09-20-2022 ambulatory [facility] Facility:[facility] Start: 09-02-2022 Telephone encounter Reece Leach MD Work Phone: Radiation Oncology Comment on above: Patient Update (Nurs e Call post radiation) Start: 08-30-2022 End: 08-30-2022 Office outpatient visit 25 minutes Narendra Dao MD Work Phone: Hematology/Oncology Comment on above: Malignant neoplasm o f upper-outer quadrant of right breast in female, estrogen receptor positive (HCC) (Primary Dx); Breast cancer metastasized to axillary lymph node, right (HCC) Start: 08-30-2022 End: 08-30-2022 [facility] Work Phone: Hematology/Oncology Comment on above: Major depressive dis order, recurrent episode, moderate (HCC); Obesity, Class III, BMI 40-49.9 (morbid obesity) (HCC) Start: 08-26-2022 Social Work Shereen MONROYW Hematolo gy/Oncology Start: 08-12-2022 End: 08-12-2022 [place] Facility:[facility] Start: 08-12-2022 End: 08-12-2022 Patient encounter procedure Reece Leach MD Work Phone: Radiation Oncology Comment on above: Malignant neoplasm o f upper-outer quadrant of right breast in female, estrogen receptor positive (HCC) (Primary Dx) Start: 08-12-2022 Unlisted evaluation and management service Narendra Dao MD Work Phone: Radiation Oncology Comment on above: Refill Request; Open ed In Error Start: 08-09-2022 End: 08-10-2022 ambulatory Nate Bobby Facility:[facility] Y[facility] singh Start: 08-05-2022 Telephone encounter Hermila Baron RN Radiation Oncology Comment on above: Nurse Triage Call (P ost Radiation Nurse Call) Start: 08-02-2022 Patient encounter procedure Reece Leach MD Work Phone: [facility] Start: 08-02-2022 Radiation Oncology Note Reece sanchez MD Work Phone: Radiation Oncology Comment on above: Completion Note Start: 07-29-2022 End: 07-29-2022 Social Work Shereen REED Hematology/Oncology Comment on above: Malignant neoplasm o f upper-outer quadrant of right breast in female, estrogen receptor positive (HCC) (Primary Dx) Start: 07-27-2022 End: 07-28-2022 ambulatory NATE BOBBY Facility: Start: 07-23-2022 End: 07-23-2022 Office outpatient visit 15 minutes Narendra Dao MD Work Phone: Hematology/Oncology Comment on above: Major depressive dis order, recurrent episode, moderate (HCC) (Primary Dx); Obesity, Class III, BMI 40-49.9 (morbid obesity) (HCC) Start: 07-22-2022 End: 07-23-2022 ambulatory Nate Bobby Facility:[facility] Yara singh Start: 07-14-2022 End: 07-14-2022 Patient encounter procedure Reece Leach MD Work Phone: Radiation Oncology Comment on above: Malignant neoplasm o f upper-outer quadrant of right breast in female, estrogen receptor positive (HCC) (Primary Dx) Start: 07-07-2022 Telephone encounter Shereen REED H ematology/Oncology Comment on above: Social Work Services Start: 07-05-2022 End: 07-05-2022 Lab Drop off Nate Bobby [facility] Start: 06-30-2022 End: 06-30-2022 Patient encounter procedure Reece Leach MD Work Phone: Radiation Oncology Comment on above: Malignant neoplasm o f upper-outer quadrant of right breast in female, estrogen receptor positive (HCC) (Primary Dx) Start: 06-28-2022 Telephone encounter Narendra ramey MD Work Phone: Radiation Oncology Comment on above: Musculoskeletal Prob elisa Start: 06-28-2022 End: 06-29-2022 ambulatory ROBERTA BAE . Facility: Start: 06-25-2022 End: 06-25-2022 ambulatory Lab/[place] Work Phone: Hematology/Oncology Comment on above: Breast cancer metast asized to axillary lymph node, right (HCC) (Primary Dx) Start: 06-24-2022 End: 06-24-2022 Patient encounter procedure Gera Phillips PA-C Work Phone: [facility] Comment on above: Malignant neoplasm o f upper-outer quadrant of right breast in female, estrogen receptor positive (HCC) (Primary Dx); Breast cancer metastasized to axillary lymph node, right (HCC); Postop check Start: 06-24-2022 End: 06-24-2022 Patient encounter procedure Reece Leach MD Work Phone: Radiation Oncology Comment on above: Malignant neoplasm o f upper-outer quadrant of right breast in female, estrogen receptor positive (HCC) (Primary Dx) Start: 06-22-2022 Telephone encounter Gera cartwright PA-C Work Phone: [facility] Comment on above: Patient Question Start: 06-15-2022 End: 06-15-2022 Patient encounter procedure Reece Leach MD Work Phone: Radiation Oncology Comment on above: Malignant neoplasm o f upper-outer quadrant of right breast in female, estrogen receptor positive (HCC) (Primary Dx) Start: 06-10-2022 End: 06-11-2022 ambulatory Nina So OTR/L Work Phone: Occupational Therapy Comment on above: Malignant neoplasm o f right breast in female, estrogen receptor positive, unspecified site of breast (HCC) (Primary Dx); At risk for lymphedema; Post-operative state; Malignant neoplasm of upper-outer quadrant of right breast in female, estrogen receptor positive (HCC) Start: 06-04-2022 Patient encounter procedure Reece Leach MD Work Phone: [place] Start: 06-04-2022 Radiation Oncology Note Reece sanchez MD Work Phone: Radiation Oncology Comment on above: Treatment Planning Start: 06-04-2022 Telephone encounter Gera cartwright PA-C Work Phone: [facility] Comment on above: Patient Question/Ref erral Start: 06-03-2022 End: 06-03-2022 ambulatory Nina Lipaj OTR/L Work Phone: Occupational Therapy Comment on above: Malignant neoplasm o f right breast in female, estrogen receptor positive, unspecified site of breast (HCC) (Primary Dx); At risk for lymphedema; Post-operative state Start: 05-27-2022 End: 05-27-2022 ambulatory Nina Lipaj OTR/L Work Phone: Occupational Therapy Comment on above: Malignant neoplasm o f right breast in female, estrogen receptor positive, unspecified site of breast (HCC) (Primary Dx); At risk for lymphedema; Post-operative state Start: 05-27-2022 End: 05-27-2022 Patient encounter procedure Gera Phillips PA-C Work Phone: [facility] Comment on above: Malignant neoplasm o f upper-outer quadrant of right breast in female, estrogen receptor positive (HCC) (Primary Dx); Breast cancer metastasized to axillary lymph node, right (HCC); Dehiscence of incision, sequela; Postop check Start: 05-26-2022 ambulatory Miriam pereira RN Work Phone: Hematology/Oncology Comment on above: Oral Anti-cancer Age nt Education (Anastrozole) Start: 05-26-2022 Telephone encounter Miriam coello RN Work Phone: Hematology/Oncology Comment on above: Awning Maker - O ther (Medication Start Date - Anastrozole) Start: 05-25-2022 Telephone encounter Miriam coello RN Work Phone: Hematology/Oncology Comment on above: Care Coordination (M edication Questions) Start: 05-24-2022 Telephone encounter Miriam coello RN Work Phone: Hematology/Oncology Comment on above: Care Coordination (T reatment Planning) Start: 05-24-2022 ambulatory JONNY Isbell ty:[facility] Start: 05-24-2022 End: 05-24-2022 Subsequent hospital visit by physician Joaquín Mahmood MD Work Phone: Procedures Comment on above: Diverticulitis [K57. 92] Start: 05-20-2022 End: 05-20-2022 ambulatory Nina So OTR/L Work Phone: Occupational Therapy Comment on above: Malignant neoplasm o f right breast in female, estrogen receptor positive, unspecified site of breast (HCC); At risk for lymphedema; Post-operative state Start: 05-20-2022 End: 05-20-2022 Patient encounter procedure Gera Phillips PA-C Work Phone: [facility] Comment on above: Malignant neoplasm o f upper-outer quadrant of right breast in female, estrogen receptor positive (HCC) (Primary Dx); Breast cancer metastasized to axillary lymph node, right (HCC); Dehiscence of incision, sequela; Postop check Start: 05-14-2022 End: 05-14-2022 Office outpatient visit 25 minutes Narendra Dao MD Work Phone: Hematology/Oncology Comment on above: Malignant neoplasm o f upper-outer quadrant of right breast in female, estrogen receptor positive (HCC) (Primary Dx); Diverticulitis Start: 05-14-2022 End: 05-14-2022 ambulatory Lab/[place] Work Phone: Hematology/Oncology Comment on above: Malignant neoplasm o f upper-outer quadrant of right breast in female, estrogen receptor positive (HCC) Start: 05-13-2022 End: 05-13-2022 ambulatory Nina So OTR/L Work Phone: Occupational Therapy Comment on above: Malignant neoplasm o f upper-outer quadrant of right breast in female, estrogen receptor positive (HCC); Breast cancer metastasized to axillary lymph node, right (HCC); At risk for lymphedema Start: 05-10-2022 End: 05-10-2022 Patient encounter procedure Reece Leach MD Work Phone: Radiation Oncology Comment on above: Malignant neoplasm o f upper-outer quadrant of right breast in female, estrogen receptor positive (HCC) (Primary Dx) Start: 05-05-2022 Telephone encounter Joaquín Benoit MD Work Phone: Gastroenterology Comment on above: Orders Start: 04-30-2022 Telephone encounter Grea cartwright PA-C Work Phone: [facility] Comment on above: Patient Update Start: 04-29-2022 End: 04-29-2022 Patient encounter procedure Gera Phillips PA-C Work Phone: [facility] Comment on above: Malignant neoplasm o f upper-outer quadrant of right breast in female, estrogen receptor positive (HCC) (Primary Dx); Breast cancer metastasized to axillary lymph node, right (HCC); Post-operative state; At risk for lymphedema Start: 04-27-2022 Telephone encounter Miriam coello RN Work Phone: Hematology/Oncology Comment on above: Care Coordination (S urgical Site Concerns) Start: 04-27-2022 End: 04-27-2022 ambulatory Jj Wallace LUIS DANIELRebecca Work Phone: [facility] Comment on above: Malignant neoplasm o f upper-outer quadrant of right breast in female, estrogen receptor positive (HCC) (Primary Dx) Malignant neoplasm o f upper-outer quadrant of right breast in female, estrogen receptor positive (HCC) Start: 04-27-2022 End: 04-27-2022 Telemedicine consultation with patient Jj STACY Work Phone: [facility] Start: 04-23-2022 End: 04-23-2022 ambulatory Shahana Mercedes Facility:[facility] Start: 04-23-2022 End: 04-23-2022 ambulatory MD Nate Bobby Work Phone: [facility] Work Phone: Start: 04-23-2022 End: 04-23-2022 Discharged Recurring MD Nate Bobby Work Phone: [facility]-[employer] [address] Start: 04-22-2022 End: 04-22-2022 Patient encounter procedure Reece Leach MD Work Phone: Radiation Oncology Comment on above: Malignant neoplasm o f upper-outer quadrant of right breast in female, estrogen receptor positive (HCC) (Primary Dx) Start: 04-20-2022 Telephone encounter Miriam coello RN Work Phone: Hematology/Oncology Comment on above: Care Coordination (T herapy) Start: 04-16-2022 ambulatory No Pcp Navigate [facility] Start: 04-16-2022 Telephone encounter Shahana crow MD Work Phone: [facility] Comment on above: Orders Start: 04-15-2022 End: 04-15-2022 Patient encounter procedure Gera MALAVEC Work Phone: [facility] Comment on above: Malignant neoplasm o f upper-outer quadrant of right breast in female, estrogen receptor positive (HCC) (Primary Dx); Breast cancer metastasized to axillary lymph node, right (HCC); Postop check Start: 04-05-2022 Telephone encounter Miriam Nj Hematology/Oncology Comment on above: Care Coordination (D rain Problem) Start: 04-02-2022 End: 04-02-2022 Office outpatient visit 40 minutes Narendra Dao MD Work Phone: Hematology/Oncology Comment on above: Malignant neoplasm o f upper-outer quadrant of right breast in female, estrogen receptor positive (HCC) (Primary Dx); Diverticulitis Start: 04-02-2022 End: 04-02-2022 ambulatory Lab/[place] Work Phone: Hematology/Oncology Comment on above: Lung nodules (Primar y Dx); Malignant neoplasm of upper-outer quadrant of right breast in female, estrogen receptor positive (HCC) Start: 04-01-2022 End: 04-01-2022 Patient encounter procedure Gera Phillips PA-C Work Phone: [facility] Comment on above: Malignant neoplasm o f upper-outer quadrant of right breast in female, estrogen receptor positive (HCC) (Primary Dx); Breast cancer metastasized to axillary lymph node, right (HCC); Postop check Start: 03-25-2022 End: 03-25-2022 Orders Only Gera Phillips PA-C Work Phone: [facility] Comment on above: Malignant neoplasm o f upper-outer quadrant of right breast in female, estrogen receptor positive (HCC) (Primary Dx) Start: 03-24-2022 ambulatory Whitney Alberts RN Work Phone: [facility] Comment on above: Pre-Op Education Start: 03-22-2022 End: 03-22-2022 Patient encounter procedure Jonny Shaw MD Work Phone: Gastroenterology Comment on above: Diverticulitis Start: 03-19-2022 End: 03-19-2022 Admission to establishment [place] [id number] Work Phone: [facility] Start: 03-19-2022 End: 03-19-2022 ambulatory [facility] Work Phone: Pre Anesthesia Comment on above: Preop examination (P rimary Dx); Primary hypertension; Hyperlipidemia, unspecified hyperlipidemia type; Hypothyroidism, unspecified type; Type 2 diabetes mellitus without complication, without long-term current use of insulin ([facility]); Aortic valve insufficiency, etiology of cardiac valve disease unspecified; Mild intermittent asthma without complication; RLS (restless legs syndrome); Morbid obesity (HCC); Anemia, unspecified type Start: 03-19-2022 End: 03-19-2022 Preprocedural examination done [facility] Work Phone: Pre Anesthesia Start: 03-17-2022 Telephone encounter Jacinda Lim RN Work Phone: General Surgery Comment on above: Awning Maker - O ther Start: 03-15-2022 Telephone encounter Miriam coello RN Work Phone: Hematology/Oncology Comment on above: Care Coordination (R eferral; Appointment Question) Start: 03-11-2022 End: 03-11-2022 Patient encounter procedure Shahana Mercedes MD Work Phone: [facility] Comment on above: Breast cancer metast asized to axillary lymph node, right (HCC) (Primary Dx) Start: 03-11-2022 Chart abstracting Whitney reis RN Work Phone: [facility] Comment on above: Arm Measurements Start: 03-09-2022 ambulatory [facility] Facility: [facility] Start: 03-02-2022 Telephone encounter Miriam coello RN Work Phone: Hematology/Oncology Comment on above: Care Coordination (C T Results) Start: 02-24-2022 End: 02-25-2022 ambulatory [facility] Facility: Start: 02-17-2022 Telephone encounter Miriam Nj Hematology/Oncology Comment on above: Care Coordination (C ovid Question) Start: 02-15-2022 Telephone encounter Miriam coello RN Work Phone: Hematology/Oncology Comment on above: Care Coordination (C old Symptoms) Start: 02-12-2022 Telephone encounter Lala Cristina RN R adiology Pet CT Comment on above: Orders (CT) Awning Maker - O ther Appointment Start: 02-12-2022 End: 02-12-2022 Patient encounter procedure Dipti Merritt APRN.CNP Work Phone: [facility] Start: 02-12-2022 End: 02-12-2022 ambulatory Lab/[place] Work Phone: Hematology/Oncology Comment on above: Malignant neoplasm o f upper-outer quadrant of right breast in female, estrogen receptor positive (HCC) Malignant neoplasm o f upper-outer quadrant of right breast in female, estrogen receptor positive (HCC) (Primary Dx); Malignant neoplasm of female breast, unspecified estrogen receptor status, unspecified laterality, unspecified site of breast (HCC); Lung nodules Malignant neoplasm o f upper-outer quadrant of right breast in female, estrogen receptor positive (HCC) (Primary Dx) Start: 02-11-2022 End: 02-12-2022 ambulatory ALEJO H FAWWAD Facility:[facility] Start: 02-09-2022 End: 02-10-2022 ambulatory ALEJO H FAWWAD Facility:[facility] Start: 02-08-2022 End: 02-09-2022 ambulatory ALEJO H FACarlotaWAD Facility:[facility] Start: 02-05-2022 Telephone encounter Narendra ramey MD Work Phone: Cancer [facility] Comment on above: follow up Start: 02-05-2022 End: 02-05-2022 ambulatory Chair 21 [facility] Work Phone: Hematology/Oncology Comment on above: Malignant neoplasm o f upper-outer quadrant of right breast in female, estrogen receptor positive (HCC) (Primary Dx) Start: 02-05-2022 End: 02-05-2022 Patient encounter procedure Narendra Dao MD Work Phone: [employer] Start: 02-05-2022 End: 02-05-2022 ambulatory [facility] Work Phone: Hematology/Oncology Comment on above: Malignant neoplasm o f upper-outer quadrant of right breast in female, estrogen receptor positive (HCC) Malignant neoplasm o f upper-outer quadrant of right breast in female, estrogen receptor positive (HCC) (Primary Dx) Start: 01-15-2022 End: 01-15-2022 Patient encounter procedure Dipti Merritt APRN.CNP Work Phone: [employer] Start: 01-15-2022 End: 01-15-2022 ambulatory [facility]/[place] Work Phone: Hematology/Oncology Comment on above: Malignant neoplasm o f upper-outer quadrant of right breast in female, estrogen receptor positive (HCC) Malignant neoplasm o f upper-outer quadrant of right breast in female, estrogen receptor positive (HCC) (Primary Dx) Malignant neoplasm o f upper-outer quadrant of right breast in female, estrogen receptor positive (HCC) (Primary Dx); Need for influenza vaccination Start: 01-04-2022 Telephone encounter Miriam Nj Hematology/Oncology Comment on above: Care Coordination (S kin Changes; New pain) Start: 12-25-2021 End: 12-25-[address] Work Phone: Nutrition Therapy Comment on above: Nutrition Assessment Start: 12-25-2021 End: 12-25-[address] Work Phone: [facility] Comment on above: Malignant neoplasm o f upper-outer quadrant of right breast in female, estrogen receptor positive (HCC) Malignant neoplasm o f upper-outer quadrant of right breast in female, estrogen receptor positive (HCC) (Primary Dx) Start: 12-17-2021 End: 12-17-2021 ambulatory [facility] Work Phone: Hematology/Oncology Comment on above: Malignant neoplasm o f upper-outer quadrant of right breast in female, estrogen receptor positive (HCC) Start: 12-14-2021 Telephone encounter Zack davis PA-C Work Phone: Hematology/Oncology Comment on above: Results Start: 12-14-2021 End: 12-14-2021 Patient encounter procedure Zack Winston PA-C Work Phone: [facility] Start: 12-14-2021 End: 12-14-2021 ambulatory Zack MALAVEC Work Phone: Hematology/Oncology Comment on above: Malignant neoplasm o f upper-outer quadrant of right breast in female, estrogen receptor positive (HCC) (Primary Dx) Malignant neoplasm o f upper-outer quadrant of right breast in female, estrogen receptor positive (HCC) Start: 12-08-2021 Telephone encounter Miriam Nj Hematology/Oncology Comment on above: Care Coordination (C 1D1 Post Treatment Call) Start: 12-04-2021 Telephone encounter [facility] [place] Work Phone: Hematology/Oncology Comment on above: Benefits Investigati on Start: 12-04-2021 End: 12-04-2021 Patient encounter procedure Narendra Dao MD Work Phone: [facility] Start: 12-04-2021 End: 12-04-2021 ambulatory Narendra Dao MD Work Phone: Hematology/Oncology Comment on above: Malignant neoplasm o f upper-outer quadrant of right breast in female, estrogen receptor positive (HCC) (Primary Dx) Malignant neoplasm o f upper-outer quadrant of right breast in female, estrogen receptor positive (HCC) Start: 12-03-2021 Telephone encounter Miriam Nj Hematology/Oncology Comment on above: Care Coordination (T reatment Questions) Start: 12-01-2021 ambulatory Belia Mazariegos MD Work Phone: Mammography Comment on above: Breast Problem Start: 12-01-2021 Patient encounter procedure Belia Mazariegos MD Work Phone: [facility] Start: 11-27-2021 ambulatory [facility] Facility: [facility] Start: 11-27-2021 End: 11-27-2021 Subsequent hospital visit by physician [facility] Work Phone: [facility] Radiology Molecular Comment on above: Malignant neoplasm o f right breast in female, estrogen receptor positive, unspecified site of breast (HCC) [C50.911, Z17.0] Start: 11-27-2021 ambulatory [facility] Facility: [facility] Start: 11-27-2021 End: 11-27-2021 Subsequent hospital visit by physician [facility] Work Phone: [facility] Radiology Molecular Start: 11-20-2021 Social Work Shereen Arnett PLASTICS FABRICATOR AND ASSEMBLER Hematolo gy/Oncology Comment on above: First Time Treatment Education (Docetaxel & Cyclophosphamide) Care Coordination (V accine Question) Start: 11-18-2021 Chart abstracting Evangelina fofana RN Work Phone: Hematology/Oncology Start: 11-18-2021 Telephone encounter Miriam Nj Hematology/Oncology Comment on above: Care Coordination (A ntiemetics) Start: 11-18-2021 End: 11-18-[address]y Zarate RD Work Phone: Nutrition Therapy Comment on above: Nutrition Counseling Start: 11-18-2021 End: 11-18-2021 Patient encounter procedure Narendra Dao MD Work Phone: [facility] Start: 11-18-2021 End: 11-18-2021 ambulatory [facility] Work Phone: Hematology/Oncology Comment on above: Malignant neoplasm o f upper-outer quadrant of right breast in female, estrogen receptor positive (HCC) Malignant neoplasm o f upper-outer quadrant of right breast in female, estrogen receptor positive (HCC) (Primary Dx) Start: 11-16-2021 Telephone encounter Shahana crow MD Work Phone: [facility] Comment on above: Orders Start: 11-12-2021 ambulatory Slime barragan MD Work Phone: Mammography Comment on above: Breast Problem Start: 11-12-2021 End: 11-12-2021 Patient encounter procedure Shahana Mercedes MD Work Phone: [facility] Comment on above: Malignant neoplasm o f right breast in female, estrogen receptor positive, unspecified site of breast (HCC) (Primary Dx); Breast cancer metastasized to axillary lymph node, right (HCC) Start: 11-12-2021 Telephone encounter Tracy Wells Hematology/Oncology Comment on above: Appointment Start: 11-12-2021 End: 11-12-2021 Subsequent hospital visit by physician Screen/Diag Mammo [facility] Work Phone: [facility] Radiology Mammography Comment on above: Malignant neoplasm o f upper-outer quadrant of right breast in female, estrogen receptor positive (HCC) [C50.411, Z17.0] Start: 11-10-2021 ambulatory UNKNOWN PROVIDER Facili ty:[facility] Start: 11-10-2021 End: 11-10-2021 Subsequent hospital visit by physician [facility] (1.5t) Radiology Comment on above: Malignant neoplasm o f upper-outer quadrant of right breast in female, estrogen receptor positive (HCC) [C50.411, Z17.0] Start: 11-09-2021 Telephone encounter Tracy Wells Hematology/Oncology Comment on above: Patient Question Opened In Error Newly Diagnosed; Car e Coordinator - Other Start: 11-05-2021 End: 11-05-2021 ambulatory ALEJO YUMIKO Facility:[facility] Start: 11-04-2021 ambulatory Aneta pearce MD Work Phone: [facility] Radiology Mammography Comment on above: Radio Imaging Study Comments Start: 11-04-2021 Patient encounter procedure Aneta Kincaid MD Work Phone: [facility] Start: 10-30-2021 End: 10-30-[address] Work Phone: [facility] Start: 10-30-2021 End: 10-30-[address] Nutrition therapy Chey Zarate RD Work Phone: Nutrition Therapy Comment on above: Nutrition Assessment Start: 10-22-2021 End: 10-22-2021 ambulatory Jonah Carney Other [place] Other Start: 10-22-2021 Telephone encounter Narendra ramey MD Work Phone: [facility] Comment on above: Port Insertion Patient Question Consult Start: 10-21-2021 End: 10-21-2021 ambulatory Narendra Dao MD Work Phone: Hematology/Oncology Comment on above: Malignant neoplasm o f upper-outer quadrant of right breast in female, estrogen receptor positive (HCC) (Primary Dx) Start: 10-21-2021 End: 10-21-2021 Patient encounter procedure Narendra Dao MD Work Phone: [facility] Start: 10-19-2021 Chart abstracting Narendra mireles MD Work Phone: Hematology/Oncology Start: 10-02-2021 End: 10-03-2021 ambulatory Shaikh Yumiko Facility:[facility] Start: 10-02-2021 End: 10-02-2021 Admission to same day surgery center MD Shaikh West Work Phone: [facility]Ultras[facility] Cn[facility] for Breast Car Start: 09-30-2021 End: 09-30-2021 ambulatory Shaikh Yumiko Facility:[facility] Start: 09-30-2021 End: 09-30-2021 Patient encounter procedure MD Shaikh West Work Phone: [facility] Start: 09-01-2021 End: 09-02-[address] JONA GALVEZ [employer] Other Start: 09-01-2021 Office outpatient vi sit 15 minutes Jonah Olexa [facility] Start: 06-23-2021 End: 06-23-2021 ambulatory Jonah Olexa Other [place] Other Start: 06-23-2021 Postop follow up vis it related to original px Jonah Olexa [facility] [place] Start: 06-01-2021 End: 06-01-2021 ambulatory Jonah Olexa Other [place] Other Start: 06-01-2021 Telephone encounter Jonah Olexa [facility] Start: 05-26-2021 End: 05-26-2021 ambulatory Jonah Olexa Other [place] Other Start: 05-26-2021 Postop follow up vis it related to original px Jonah Olexa [facility] Start: 05-20-2021 End: 05-20-2021 ambulatory Jonah Olexa Facility:[facility] Start: 05-19-2021 End: 05-19-2021 ambulatory Jonah Olexa Other [place] Other Start: 05-19-2021 Telephone encounter Jonah Olexa [facility] Start: 05-18-2021 End: 05-18-2021 ambulatory Jonah Olexa Facility:[facility] Start: 05-18-2021 End: 05-18-2021 Patient encounter procedure MD Jonah Carney Work Phone: [facility]-Pre-Surgical Testing Start: 05-12-2021 End: 05-12-2021 ambulatory Jonah Olexa Other [place] Other Start: 05-12-2021 Encounter for other preprocedural examination Jonah Olexa [facility] Start: 05-12-2021 Office outpatient vi sit 25 minutes Jonah Olexa [facility] Start: 05-04-2021 End: 05-04-2021 ambulatory Jonah Olexa Facility:[facility] Start: 05-04-2021 End: 05-04-2021 Patient encounter procedure MD Jonah Carney Work Phone: [facility]Pre-Surgical Testing Start: 04-16-2021 End: 04-16-2021 ambulatory Jonah Olexa Other [place] Other Start: 04-16-2021 Telephone encounter Jonah Olexa [facility] Start: 2021 End: 2021 ambulatory Jonah Olexa Other [place] Other Start: 2021 Encounter for other preprocedural examination Jonah Olexa [facility] Start: 2021 Office outpatient vi sit 25 minutes Jonah [facility] Start: 04-06-2021 End: 04-06-2021 ambulatory Jonah Olexa Other [place] Other Start: 04-06-2021 Telephone encounter Jonah O[facility]a [facility] Start: 03-25-2021 End: 03-25-2021 ambulatory Jonah Olexa Other [place] Other Start: 03-25-2021 Telephone encounter Jonah Olexa [facility] Start: 03-17-2021 End: 03-17-2021 ambulatory Jonah [facility] Other [place] Other Start: 03-17-2021 Office outpatient vi sit 25 minutes [facility] Procedures Date Procedure Procedure Detail Performing Clinician Start: 08-01-2023 Blood count complete auto&auto difrntl wbc Narendra Dao MD Work Phone: Start: 06-29-2023 Blood count complete auto&auto difrntl wbc Narendra Dao MD Work Phone: Start: 06-29-2023 Immunoassay tumor an tigen quantitative ca 15-3 Narendra Dao MD Work Phone: Start: 06-08-2023 Blood count complete auto&auto difrntl wbc Narendra Dao MD Work Phone: Start: 04-11-2023 Blood count complete auto&auto difrntl wbc Narendra Dao MD Work Phone: Start: 01-27-2023 Blood count complete auto&auto difrntl wbc Narendra Dao MD Work Phone: Start: 12-13-2022 Blood count complete auto&auto difrntl wbc Narendra Dao MD Work Phone: Start: 11-15-2022 Blood count complete auto&auto difrntl wbc Narendra Dao MD Work Phone: Start: 10-18-2022 Blood count complete auto&auto difrntl wbc Narendra Dao MD Work Phone: Start: 10-07-2022 End: 10-07-2022 Mammography Gera Phillips PA-C Work Phone: Start: 08-30-2022 Blood count complete auto&auto difrntl wbc Narendra Dao MD Work Phone: Start: 05-24-2022 Colonoscopy flx dx w /collj spec when pfrmd Jonny Shaw MD Work Phone: Start: 05-24-2022 Colonoscopy Miriam coello RN Work Phone: Start: 05-14-2022 Blood count complete auto&auto difrntl wbc Narendra Dao MD Work Phone: Start: 04-02-2022 Blood count complete auto&auto difrntl wbc Narendra Dao MD Work Phone: Start: 02-12-2022 Blood count complete auto&auto difrntl wbc Narendra Dao MD Work Phone: Start: 02-05-2022 Blood count complete auto&auto difrntl wbc Narendra Dao MD Work Phone: Start: 01-15-2022 Blood count complete auto&auto difrntl khushi Dao MD Work Phone: Start: 12-25-2021 Blood count complete auto&auto difrntl wbc Narendra Dao MD Work Phone: Start: 12-17-2021 CBC + DIFF Zack Barajas Rich sser PA-C Work Phone: Start: 12-17-2021 Comprehensive metabo lic panel Zack Karl Quinton PA-C Work Phone: Start: 12-14-2021 CBC + DIFF Narendra ramey MD Work Phone: Start: 12-14-2021 Comprehensive metabo lic panel Narendra Dao MD Work Phone: Start: 12-04-2021 Blood count complete auto&auto difrntl wbc Narendra Dao MD Work Phone: Start: 11-18-2021 Blood count complete auto&auto difrntl wbc Narendra Dao MD Work Phone: Start: 11-16-2021 Adult depression scr eening assessment Shahana Mercedes MD Work Phone: Start: 11-12-2021 Us breast uni real t elli with image limited Gera Phillips PA-C Work Phone: Start: 11-12-2021 Diagnostic mammograp hy computer-aided detcj uni Gera Phillips PA-C Work Phone: Start: 10-02-2021 Mammography of right breast MD Shaikh West Work Phone: Start: 10-02-2021 Core needle biopsy o f breast using ultrasound guidance MD Shaikh West Work Phone: Start: 09-30-2021 Ultrasonography of r ight breast MD Shaikh West Work Phone: Start: 09-30-2021 Bilateral mammography M Lilly West Work Phone: Appendectomy Nate Bobby Arthroscopic knee operation Nate Bobby Excision of lymph node Christoph Bobby Comment on above: breast Ligation of fallopian tube S mary Bobby Reverse prosthetic t otal arthroplasty of shoulder Nate Bobby Shoulder region stru cture (body structure) Nate Bobby Comment on above: torn ligament in rig ht shoulder Plan of Treatment Date Care Activity Detail Author Start: 05-24-2032 Colonoscopy COLONOS[address] [facility] Start: 05-24-2032 COLORECTAL CANCER SCREENING COLORECTAL CANCER SCREENING [facility] Start: 05-24-2032 Screening for malign ant neoplasm of colon [facility] Start: 02-26-2025 DIABETES SCREEN DIABETES SCREEN [facility] Start: 02-12-2025 DIABETES SCREEN DIABETES SCREEN [facility] Start: 02-05-2025 DIABETES SCREEN DIABETES SCREEN [facility] Start: 01-15-2025 DIABETES SCREEN DIABETES SCREEN [facility] Start: 12-25-2024 DIABETES SCREEN DIABETES SCREEN [facility] Start: 12-17-2024 DIABETES SCREEN DIABETES SCREEN [facility] Start: 12-14-2024 DIABETES SCREEN DIABETES SCREEN [facility] Start: 12-04-2024 DIABETES SCREEN DIABETES SCREEN [facility] Start: 11-18-2024 DIABETES SCREEN DIABETES SCREEN [facility] Start: 10-21-2024 DIABETES SCREEN DIABETES SCREEN [facility] Start: 07-31-2024 BP Controlled (<130/80) BP Controlle d (<130/80) [facility] Start: 07-31-2024 Complete blood count Hemoglobin/Alcon tocrit [facility] Start: 07-31-2024 Creatinine measurement Serum Creatin ine [facility] Start: 07-05-2024 ambulatory Ambulatory Facility:[facility] Start: 06-28-2024 Creatinine measurement Serum Creatin ine [facility] Start: 06-07-2024 Complete blood count Hemoglobin/Alcon tocrit [facility] Start: 06-07-2024 Creatinine measurement Serum Creatin ine [facility] Start: 05-01-2024 BP Controlled (<130/80) BP Controlle d (<130/80) [facility] Start: 05-01-2024 Complete blood count Hemoglobin/Alcon tocrit [facility] Start: 05-01-2024 Creatinine measurement Serum Creatin ine [facility] Start: 04-11-2024 BP Controlled (<130/80) BP Controlle d (<130/80) [facility] Start: 04-11-2024 Complete blood count Hemoglobin/Alcon tocart [facility] Start: 04-11-2024 Creatinine measurement Serum Creatin ine [facility] Start: 03-31-2024 Urine microalbumin profile [facility] Start: 02-25-2024 Complete blood count Hemoglobin/Alcon tocrit [facility] Start: 02-25-2024 Creatinine measurement Serum Creatin ine [facility] Start: 02-18-2024 BP Controlled (<130/80) BP Controlle d (<130/80) [facility] Start: 01-28-2024 Hemoglobin/Hematocrit Hemoglobin/Hem atocrit [facility] Start: 01-28-2024 Serum Creatinine Serum Creatinine Cl [facility] Start: 01-04-2024 Hemoglobin/Hematocrit Hemoglobin/Hem atocrit [facility] Start: 01-04-2024 Serum Creatinine Serum Creatinine Cl [facility] Start: 12-14-2023 BP Controlled (<130/80) BP Controlle d (<130/80) [facility] Start: 12-14-2023 Hemoglobin/Hematocrit Hemoglobin/Hem atocrit [facility] Start: 12-14-2023 Serum Creatinine Serum Creatinine Cl [facility] Start: 11-16-2023 BP Controlled (<130/80) BP Controlle d (<130/80) [facility] Start: 10-19-2023 BP CONTROLLED (<130/80) BP CONTROLLE D (<130/80) [facility] Start: 10-10-2023 End: 03-12-2024 RAMOS DIAGNOSTIC BILATERAL [facility]NO[facility] Radiology Routine Malignant neoplasm of upper-outer quadrant of right breast in female, estrogen receptor positive (HCC) Expected: 10/10/2023, Expires: 03/12/2024 [facility] Work Phone: Comment on above: Expected: 10/10/2023 , Expires: 03/12/2024 Start: 10-10-2023 End: 10-10-2023 Patient encounter procedure 10/10/2023 11:20 AM EDT Appointment [facility] [id number] [place] [address] [facility] Comment on above: [facility] Start: 10-08-[address] [facility] Start: 10-08-2023 Screening for malign ant neoplasm of breast Mammogram Screening [facility] Start: 09-26-2023 End: 09-26-2023 Follow-up encounter Hematology/Oncology Comment on above: 8 week follow up lab -[facility] Start: 09-26-2023 End: 12-26-2023 Cancer Ag 15-3 [Units/volume] in Serum or Plasma CA 15-3 BLD Lab Routine Breast cancer metastasized to axillary lymph node, right (HCC) Malignant neoplasm of upper-outer quadrant of right breast in female, estrogen receptor positive (HCC) Muscle aches Expected: 09/26/2023 (Approximate), Expires: 12/26/[address] [facility] Comment on above: Expected: 09/26/2023 (Approximate), Expires: 12/26/2023 Start: 09-26-2023 End: 12-26-2023 Cancer Ag 27-29 [Units/volume] in Serum or Plasma CA 27.29 BLOOD Lab Routine Breast cancer metastasized to axillary lymph node, right (HCC) Malignant neoplasm of upper-outer quadrant of right breast in female, estrogen receptor positive (HCC) Muscle aches Expected: 09/26/2023 (Approximate), Expires: 12/26/[address] [facility] Comment on above: Expected: 09/26/2023 (Approximate), Expires: 12/26/2023 Start: 09-26-2023 End: 12-26-2023 CBC W Auto Differential panel - Blood COMPLETE BLOOD COUNT AND DIFFERENTIAL Lab Routine Breast cancer metastasized to axillary lymph node, right (HCC) Malignant neoplasm of upper-outer quadrant of right breast in female, estrogen receptor positive (HCC) Muscle aches Expected: 09/26/2023 (Approximate), Expires: 12/26/[address] [facility] Comment on above: Expected: 09/26/2023 (Approximate), Expires: 12/26/2023 Start: 09-26-2023 End: 12-26-2023 Comprehensive metabolic 2000 panel - Serum or Plasma COMPREHENSIVE METABOLIC PANEL Lab Routine Breast cancer metastasized to axillary lymph node, right (HCC) Malignant neoplasm of upper-outer quadrant of right breast in female, estrogen receptor positive (HCC) Muscle aches Expected: 09/26/2023 (Approximate), Expires: 12/26/2023 [facility] Work Phone: Comment on above: Expected: 09/26/2023 (Approximate), Expires: 12/26/2023 Start: 09-21-2023 BP CONTROLLED (<130/80) BP CONTROLLE D (<130/80) [facility] Start: 08-23-2023 End: 08-23-2023 ambulatory 08/23/2023 10:00 AM EDT Visit (SP) Office Hematology/Oncology [address] [place] [address] Jonah Pina, LMT [address] [place] [address] massage therapy Hematology/Oncology Comment on above: massage therapy Start: 08-16-2023 End: 08-16-2023 ambulatory 08/16/2023 10:00 AM EDT Visit (SP) Office Hematology/Oncology [address] [place] [address] [place] [address] Marsha Horowitz LMT massage therapy Hematology/Oncology Comment on above: massage therapy Start: 08-09-2023 End: 08-09-2023 ambulatory Facility:[facility] Comment on above: massage therapy Start: 08-02-2023 End: 08-02-2023 ambulatory 08/02/2023 11:00 AM EDT Visit (SP) Office Hematology/Oncology [address] [place] [address] [place] [address] Marsha Horowitz LMT massage Patient in the [facility] Hematology/Oncology Comment on above: massage Patient i n the [facility]obby Start: 08-01-2023 End: 08-01-2023 Follow-up encounter Hematology/Oncology Comment on above: 7 week follow up lab -[facility] Start: 07-30-2023 BP CONTROLLED (<130/80) BP CONTROLLE D (<130/80) [facility] Start: 07-27-2023 End: 10-26-2023 Cancer Ag 15-3 [Units/volume] in Serum or Plasma CA 15-3 BLD Lab Routine Breast cancer metastasized to axillary lymph node, right (HCC) Expected: 07/27/2023 (Approximate), Expires: 10/26/2023 [facility] Work Phone: Comment on above: Expected: 07/27/2023 (Approximate), Expires: 10/26/2023 Start: 07-27-2023 End: 10-26-2023 Cancer Ag 27-29 [Units/volume] in Serum or Plasma CA 27.29 BLOOD Lab Routine Breast cancer metastasized to axillary lymph node, right (HCC) Expected: 07/27/2023 (Approximate), Expires: 10/26/2023 [facility] Work Phone: Comment on above: Expected: 07/27/2023 (Approximate), Expires: 10/26/2023 Start: 07-27-2023 End: 10-26-2023 CBC W Auto Differential panel - Blood COMPLETE BLOOD COUNT AND DIFFERENTIAL Lab Routine Breast cancer metastasized to axillary lymph node, right (HCC) Expected: 07/27/2023 (Approximate), Expires: 10/26/2023 [facility] Work Phone: Comment on above: Expected: 07/27/2023 (Approximate), Expires: 10/26/2023 Start: 07-27-2023 End: 10-26-2023 Comprehensive metabolic 2000 panel - Serum or Plasma COMPREHENSIVE METABOLIC PANEL Lab Routine Breast cancer metastasized to axillary lymph node, right (HCC) Expected: 07/27/2023 (Approximate), Expires: 10/26/2023 [facility] Work Phone: Comment on above: Expected: 07/27/2023 (Approximate), Expires: 10/26/2023 Start: 07-05-2023 End: 07-05-2023 ambulatory 07/05/2023 12:00 PM EDT Visit (SP) Office Hematology/Oncology [address] [place] [address] [place] [address] Marsha Horowitz, SALLY MASSAGE Hematology/Oncology Comment on above: MASSAGE Start: 07-01-2023 BP CONTROLLED (<130/80) BP CONTROLLE D (<130/80) [facility] Start: 06-29-2023 End: 06-07-2024 CBC W Auto Differential panel - Blood COMPLETE BLOOD COUNT AND DIFFERENTIAL Lab Routine Breast cancer metastasized to axillary lymph node, right (HCC) Expected: 06/29/2023 (Approximate), Expires: 06/07/2024 [facility] Work Phone: Comment on above: Expected: 06/29/2023 (Approximate), Expires: 06/07/2024 Start: 06-29-2023 End: 06-07-2024 Comprehensive metabolic 2000 panel - Serum or Plasma COMPREHENSIVE METABOLIC PANEL Lab Routine Breast cancer metastasized to axillary lymph node, right (HCC) Expected: 06/29/2023 (Approximate), Expires: 06/07/2024 [facility] Work Phone: Comment on above: Expected: 06/29/2023 (Approximate), Expires: 06/07/2024 Start: 05-15-2023 BP CONTROLLED (<130/80) BP CONTROLLE D (<130/80) [facility] Start: 04-22-2023 BP CONTROLLED (<130/80) BP CONTROLLE D (<130/80) [facility] Start: 04-11-2023 End: 07-11-2023 CBC W Auto Differential panel - Blood CBC + DIFF Lab Routine Malignant neoplasm of upper-outer quadrant of right breast in female, estrogen receptor positive (HCC) (HCC) Platelets decreased (HCC) Expected: 04/11/2023, Expires: 07/11/2023 [facility] Work Phone: Comment on above: Expected: 04/11/2023 , Expires: 07/11/2023 Start: 04-11-2023 End: 07-11-2023 Comprehensive metabolic 2000 panel - Serum or Plasma COMP METABOLIC PANEL Lab Routine Malignant neoplasm of upper-outer quadrant of right breast in female, estrogen receptor positive (HCC) (HCC) Platelets decreased (HCC) Expected: 04/11/2023, Expires: 07/11/2023 [facility] Work Phone: Comment on above: Expected: 04/11/2023 , Expires: 07/11/2023 Start: 04-06-2023 Covid-19 Vaccine () Covid-19 Vaccine () [facility] Start: 03-19-2023 BP CONTROLLED (<130/80) BP CONTROLLE D (<130/80) [facility] Start: 02-28-2023 Advance Directive Discussion Advance Directive Discussion [facility] Start: 02-17-2023 End: 05-19-2023 Cancer Ag 15-3 [Units/volume] in Serum or Plasma CA 15-3 BLD Lab Routine 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) Stage 3 chronic kidney disease, unspecified whether stage 3a or 3b CKD (HCC) Anemia, unspecified type Expected: 02/17/2023 (Approximate), Expires: 05/19/2023 [facility] Work Phone: Comment on above: Expected: 02/17/2023 (Approximate), Expires: 05/19/2023 Start: 02-17-2023 End: 05-19-2023 Cancer Ag 27-29 [Units/volume] in Serum or Plasma CA 27.29 BLOOD Lab Routine 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) Stage 3 chronic kidney disease, unspecified whether stage 3a or 3b CKD (HCC) Anemia, unspecified type Expected: 02/17/2023 (Approximate), Expires: 05/19/2023 [facility] Work Phone: Comment on above: Expected: 02/17/2023 (Approximate), Expires: 05/19/2023 Start: 02-17-2023 End: 05-19-2023 CBC W Auto Differential panel - Blood CBC + DIFF Lab Routine 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) Stage 3 chronic kidney disease, unspecified whether stage 3a or 3b CKD (HCC) Anemia, unspecified type Expected: 02/17/2023 (Approximate), Expires: 05/19/2023 [facility] Work Phone: Comment on above: Expected: 02/17/2023 (Approximate), Expires: 05/19/2023 Start: 02-17-2023 End: 01-28-2024 Cobalamin (Vitamin B12) [Mass/volume] in Serum or Plasma VITAMIN B12 BLOOD Lab Routine 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) Stage 3 chronic kidney disease, unspecified whether stage 3a or 3b CKD (HCC) Anemia, unspecified type Expected: 02/17/2023 (Approximate), Expires: 01/28/2024 [facility] Work Phone: Comment on above: Expected: 02/17/2023 (Approximate), Expires: 01/28/2024 Start: 02-17-2023 End: 05-19-2023 Comprehensive metabolic 2000 panel - Serum or Plasma COMP METABOLIC PANEL Lab Routine 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) Stage 3 chronic kidney disease, unspecified whether stage 3a or 3b CKD (HCC) Anemia, unspecified type Expected: 02/17/2023 (Approximate), Expires: 05/19/2023 [facility] Work Phone: Comment on above: Expected: 02/17/2023 (Approximate), Expires: 05/19/2023 Start: 02-17-2023 End: 02-26-[address]24 CT CHEST W IVCON CT CHEST W IVCON Radiology Routine Lung nodules Expected: 02/17/2023 (Approximate), Expires: 02/26/2024 [facility] Work Phone: Comment on above: Expected: 02/17/2023 (Approximate), Expires: 02/26/2024 Start: 02-17-2023 End: 01-28-2024 Ferritin [Mass/volume] in Serum or Plasma FERRITIN BLD Lab Routine 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) Stage 3 chronic kidney disease, unspecified whether stage 3a or 3b CKD (HCC) Anemia, unspecified type Expected: 02/17/2023 (Approximate), Expires: 01/28/2024 [facility] Work Phone: Comment on above: Expected: 02/17/2023 (Approximate), Expires: 01/28/2024 Start: 02-17-2023 End: 01-28-2024 Folate [Mass/volume] in Serum or Plasma FOLATE SERUM Lab Routine 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) Stage 3 chronic kidney disease, unspecified whether stage 3a or 3b CKD (HCC) Anemia, unspecified type Expected: 02/17/2023 (Approximate), Expires: 01/28/2024 [facility] Work Phone: Comment on above: Expected: 02/17/2023 (Approximate), Expires: 01/28/2024 Start: 02-17-2023 End: 01-28-2024 Iron and Iron binding capacity panel - Serum or Plasma IRON + TIBC Lab Routine 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) Stage 3 chronic kidney disease, unspecified whether stage 3a or 3b CKD (HCC) Anemia, unspecified type Expected: 02/17/2023 (Approximate), Expires: 01/28/2024 [facility] Work Phone: Comment on above: Expected: 02/17/2023 (Approximate), Expires: 01/28/2024 Start: 02-01-2023 End: 09-01-2023 RAMOS DIAGNOSTIC BILATERAL RAMOS DIAGNOSTIC BILATERAL Radiology Routine Malignant neoplasm of upper-outer quadrant of right breast in female, estrogen receptor positive (HCC) Expected: 02/01/2023 (Approximate), Expires: 09/01/2023 [facility] Work Phone: Comment on above: Expected: 02/01/2023 (Approximate), Expires: 09/01/2023 Start: 01-23-2023 Hemoglobin A1c measurement HbA1C [facility] Start: 01-23-2023 Hemoglobin A1c/Hemoglobin.total in Blood HBA1C [facility] Start: 12-13-2022 Pneumococcal Vaccine : 65+ (3 - PPSV23 or PCV20) Pneumococcal Vaccine: 65+ (3 - PPSV23 or PCV20) [facility] Start: 12-13-2022 Pneumococcal Vaccine : 65+ (3 of 3 - PPSV23 or PCV20) Pneumococcal Vaccine: 65+ (3 of 3 - PPSV23 or PCV20) [facility] Start: 12-13-2022 PNEUMOCOCCAL: 65+ (#3) PNEUMOCOCCAL: 65+ (#3) [facility] Start: 12-13-2022 PNEUMOCOCCAL: 65+ (2 - PPSV23 or PCV20) PNEUMOCOCCAL: 65+ (2 - PPSV23 or PCV20) [facility] Start: 12-13-2022 PNEUMOCOCCAL: 65+ (3 - PPSV23 if available, else PCV20) PNEUMOCOCCAL: 65+ (3 - PPSV23 if available, else PCV20) [facility] Start: 12-13-2022 PNEUMOCOCCAL: 65+ (3 - PPSV23 or PCV20) PNEUMOCOCCAL: 65+ (3 - PPSV23 or PCV20) [facility] Start: 11-16-2022 Adult depression screening assessment DEPRESSION SCREENING [facility] Start: 10-29-2022 Covid-19 Vaccine ( season) Covid-19 Vaccine ( season) [facility] Start: 10-29-2022 Influenza vaccination [facility] Start: 08-27-2022 End: 07-24-2023 CBC W Auto Differential panel - Blood CBC + DIFF Lab Routine Major depressive disorder, recurrent episode, moderate (HCC) Obesity, Class III, BMI 40-49.9 (morbid obesity) (HCC) Expected: 08/27/2022 (Approximate), Expires: 07/24/2023 [facility] Work Phone: Comment on above: Expected: 08/27/2022 (Approximate), Expires: 07/24/2023 Start: 08-27-2022 End: 07-24-2023 Comprehensive metabolic 2000 panel - Serum or Plasma COMP METABOLIC PANEL Lab Routine Major depressive disorder, recurrent episode, moderate (HCC) Obesity, Class III, BMI 40-49.9 (morbid obesity) (HCC) Expected: 08/27/2022 (Approximate), Expires: 07/24/2023 [facility] Work Phone: Comment on above: Expected: 08/27/2022 (Approximate), Expires: 07/24/2023 Start: 04-27-2022 End: 06-27-2022 MISC SEND OUT TST 1 [facility] Work Phone: Comment on above: Expected: 04/27/2022 , Expires: 06/27/2022 Start: 04-05-2022 End: 03-22-2023 COLONOSCOPY DIAGNOSTIC COLONOSCOPY DIAGNOSTIC Endoscopy Routine Diverticulitis Expected: 04/05/2022, Expires: 03/22/2023 [facility] Work Phone: Comment on above: Expected: 04/05/2022 , Expires: 03/22/2023 Start: 02-28-2022 ADVANCE DIRECTIVE DISCUSSION ADVANCE DIRECTIVE DISCUSSION [facility] Start: 02-28-2022 DEPRESSION ASSESSMENT DEPRESSION ASS ESSMENT [facility] Start: 02-26-2022 End: 02-12-2023 CBC W Auto Differential panel - Blood CBC + DIFF Lab Routine Malignant neoplasm of upper-outer quadrant of right breast in female, estrogen receptor positive (HCC) Expected: 02/26/2022 (Approximate), Expires: 02/12/2023 [facility] Work Phone: Comment on above: Expected: 02/26/2022 (Approximate), Expires: 02/12/2023 Start: 02-26-2022 End: 02-12-2023 Comprehensive metabolic 2000 panel - Serum or Plasma COMP METABOLIC PANEL Lab Routine Malignant neoplasm of upper-outer quadrant of right breast in female, estrogen receptor positive (HCC) Expected: 02/26/2022 (Approximate), Expires: 02/12/2023 [facility] Work Phone: Comment on above: Expected: 02/26/2022 (Approximate), Expires: 02/12/2023 Start: 02-26-2022 End: 04-28-2022 Magnesium [Mass/volume] in Serum or Plasma MAGNESIUM BLD Lab Routine Malignant neoplasm of upper-outer quadrant of right breast in female, estrogen receptor positive (HCC) Expected: 02/26/2022 (Approximate), Expires: 04/28/2022 [facility] Work Phone: Comment on above: Expected: 02/26/2022 (Approximate), Expires: 04/28/2022 Start: 01-19-2022 COVID-19 VACCINE (6 - Moderna risk series) COVID-19 VACCINE (6 - Moderna risk series) [facility] Start: 12-14-2021 End: 12-04-2022 CBC W Auto Differential panel - Blood [facility] Work Phone: Comment on above: Expected: 12/14/2021 (Approximate), Expires: 12/04/2022 Expected: 12/14/2021 , Expires: 02/13/2022 Start: 12-14-2021 End: 12-04-2022 Comprehensive metabolic 2000 panel - Serum or Plasma [facility] Work Phone: Comment on above: Expected: 12/14/2021 (Approximate), Expires: 12/04/2022 Expected: 12/14/2021 , Expires: 02/13/2022 Start: 10-29-2021 Influenza vaccination INFLUENZA (#1) [facility] Start: 10-28-2021 End: 11-20-2022 CT CHEST W IVCON CT CHEST W IVCON Radiology Routine Malignant neoplasm of upper-outer quadrant of right breast in female, estrogen receptor positive (HCC) Expected: 10/28/2021 (Approximate), Expires: 11/20/2022 [facility] Work Phone: Comment on above: Expected: 10/28/2021 (Approximate), Expires: 11/20/2022 Start: 10-28-2021 End: 11-20-2022 Mri breast without&with contrast w/cad bilateral MRI BREAST WO/W IVCON BILAT Radiology Routine Malignant neoplasm of upper-outer quadrant of right breast in female, estrogen receptor positive (HCC) Expected: 10/28/2021 (Approximate), Expires: 11/20/2022 [facility] Work Phone: Comment on above: Expected: 10/28/2021 (Approximate), Expires: 11/20/2022 Start: 10-02-[address] [facility] Work Phone: Start: 02-28-2021 ADVANCE DIRECTIVE DISCUSSION ADVANCE DIRECTIVE DISCUSSION [facility] Start: 02-28-2021 DEPRESSION ASSESSMENT DEPRESSION ASS ESSMENT [facility] Start: 12-05-2020 COVID-19 VACCINE (4 - Booster for Moderna series) COVID-19 VACCINE (4 - Booster for Moderna series) [facility] Start: 09-30-2020 COVID-19 VACCINE (4 - Booster for Moderna series) COVID-19 VACCINE (4 - Booster for Moderna series) [facility] Start: 2018 BONE DENSITY BONE DENSITY [facility] Start: 2018 Bone Density Screening Bone Density Screening [facility] Start: 2018 PNEUMOCOCCAL: 65+ (1 - PCV) PNEUMOCOCCAL: 65+ (1 - PCV) [facility] Start: 2018 Screening for osteoporosis Bone Density Screening [facility] Start: 11-05-2016 SHINGRIX VACCINE (1 of 2) SHINGRIX VACCINE (1 of 2) [facility] Start: 11-05-2016 SHINGRIX VACCINE (2 of 3) SHINGRIX VACCINE (2 of 3) [facility] Start: 2013 Hepatitis B Vaccine (1 of 3 - Risk 3-dose series) Hepatitis B Vaccine (1 of 3 - Risk 3-dose series) [facility] Start: 2013 RSV Vaccine (1 - 1-d ose 60+ series) RSV Vaccine (1 - 1-dose 60+ series) [facility] Start: 2003 SHINGRIX VACCINE (1 of 2) SHINGRIX VACCINE (1 of 2) [facility] Start: 1998 COLOGUARD (FIT-DNA) COLOGUARD (FIT-D NA) [facility] Start: 1998 Colonoscopy COLONOSCOPY [facility] Start: 1998 COLORECTAL CANCER SCREENING COLORECTAL CANCER SCREENING [facility] Start: [address] COLONOGRAPHY [facility] Start: 1998 DIABETES SCREEN DIABETES SCREEN [facility] Start: 1998 FECAL OCCULT BLOOD FECAL OCCULT BLOO D [facility] Start: 1998 LIPID SCREEN LIPID SCREEN [facility] Start: 1998 Screening for malign ant neoplasm of colon [facility] Start: 1998 SIGMOIDOSCOPY [facility] Start: 1993 Mammography MAMMOGRAM [facility] Start: 1972 Urine microalbumin profile DTAP,TDAP,TD (1 - Tdap) 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 Start: 1971 BP CONTROLLED (<130/80) BP CONTROLLE D (<130/80) [facility] Start: 1971 Hepatitis B surface antibody level LDL CHOLESTEROL [facility] Start: 1971 HEPATITIS C SCREENING HEPATITIS C SC REENING [facility] Start: 1971 SPIROMETRY SPIROMETRY [facility] Start: 1965 Adult depression screening assessment DEPRESSION SCREENING [facility] Start: 1963 3 comp foot exam completed DIABETIC FOOT EXAM [facility] Start: 1963 Diabetic foot examination Diabetic Foot Exam [facility] Start: 1963 Glaucoma screening Dilated Retinal E xam [facility] Start: 1963 Hepatitis B screening URINE AL BUMIN:CREATININE RATIO [facility] Start: 1963 Hepatitis C antibody , confirmatory test DILATED RETINAL EXAM [facility] Start: 1958 Hemoglobin A1c/Hemoglobin.total in Blood HBA1C [facility] Start: 1953 COVID-19 VACCINE (#1) COVID-19 VACCI NE (#1) [facility] End: 12-12-2022 Bone &/joint imaging whole body NM BONE WHOLE BODY Radiology Routine Malignant neoplasm of right breast in female, estrogen receptor positive, unspecified site of breast (HCC) 1 Occurrences starting 11/12/2021 until 12/12/2022 [facility] Work Phone: Comment on above: 1 Occurrences starti ng 11/12/2021 until 12/12/2022 End: 11-27-2021 Bone &/joint imaging whole body [facility] Work Phone: Comment on above: 1 Occurrences starti ng 11/27/2021 until 11/27/2021 End: 10-18-2023 Cancer Ag 15-3 [Units/volume] in Serum or Plasma CA 15-3 BLD Lab Routine Malignant neoplasm of upper-outer quadrant of right breast in female, estrogen receptor positive (HCC) Breast cancer metastasized to axillary lymph node, right (HCC) Herpes zoster without complication Every 6 weeks for 9 Occurrences starting 10/18/2022 until 10/18/2023 [facility] Work Phone: Comment on above: Every 6 weeks for 9 Occurrences starting 10/18/2022 until 10/18/2023 Cancer Ag 15-3 [Units/volume] in Serum or Plasma CA 15-3 BLD Lab Routine Malignant neoplasm of upper-outer quadrant of right breast in female, estrogen receptor positive (HCC) Breast cancer metastasized to axillary lymph node, right (HCC) Herpes zoster without complication 11/15/2022 9:45 AM T [facility] Work Phone: Cancer Ag 15-3 [Units/volume] in Serum or Plasma CA 15-3 BLD Lab Routine Breast cancer metastasized to axillary lymph node, right (HCC) 06/08/2023 3:42 PM T [facility] Work Phone: Cancer Ag 15-3 [Units/volume] in Serum or Plasma CA 15-3 BLD Lab Routine Malignant neoplasm of upper-outer quadrant of right breast in female, estrogen receptor positive (HCC) Breast cancer metastasized to axillary lymph node, right (HCC) Herpes zoster without complication 06/29/2023 9:43 AM T [facility] Work Phone: Cancer Ag 15-3 [Units/volume] in Serum or Plasma CA 15-3 BLD Lab Routine Breast cancer metastasized to axillary lymph node, right (HCC) 08/01/2023 2:15 PM T [facility] Work Phone: End: 10-18-2023 Cancer Ag 27-29 [Units/volume] in Serum or Plasma CA 27.29 BLOOD Lab Routine Malignant neoplasm of upper-outer quadrant of right breast in female, estrogen receptor positive (HCC) Breast cancer metastasized to axillary lymph node, right (HCC) Herpes zoster without complication Every 6 weeks for 9 Occurrences starting 10/18/2022 until 10/18/2023 [facility] Work Phone: Comment on above: Every 6 weeks for 9 Occurrences starting 10/18/2022 until 10/18/2023 Cancer Ag 27-29 [Units/volume] in Serum or Plasma CA 27.29 BLOOD Lab Routine Malignant neoplasm of upper-outer quadrant of right breast in female, estrogen receptor positive (HCC) Breast cancer metastasized to axillary lymph node, right (HCC) Herpes zoster without complication 11/15/2022 9:45 AM EDT [facility] Work Phone: Cancer Ag 27-29 [Units/volume] in Serum or Plasma CA 27.29 BLOOD Lab Routine Breast cancer metastasized to axillary lymph node, right (HCC) 06/08/2023 3:42 PM EDT [facility] Work Phone: Cancer Ag 27-29 [Units/volume] in Serum or Plasma CA 27.29 BLOOD Lab Routine Breast cancer metastasized to axillary lymph node, right (HCC) 08/01/2023 2:15 PM [facility] End: 11-18-2022 CBC W Auto Differential panel - Blood CBC + DIFF Lab Routine Malignant neoplasm of upper-outer quadrant of right breast in female, estrogen receptor positive (HCC) Every 3 weeks for 18 Occurrences starting 11/18/2021 until 11/18/2022, 1 completed [facility] Work Phone: Comment on above: Every 3 weeks for 18 Occurrences starting 11/18/2021 until 11/18/2022, 1 completed CBC W Auto Different ial panel - Blood CBC + DIFF Lab Routine Malignant neoplasm of upper-outer quadrant of right breast in female, estrogen receptor positive (HCC) 12/17/2021 10:50 AM EDT [facility] Work Phone: End: 10-18-2023 CBC W Auto Differential panel - Blood CBC + DIFF Lab Routine Malignant neoplasm of upper-outer quadrant of right breast in female, estrogen receptor positive (HCC) Breast cancer metastasized to axillary lymph node, right (HCC) Every other week for 26 Occurrences starting 10/18/2022 until 10/18/2023 [facility] Work Phone: Comment on above: Every other week for 26 Occurrences starting 10/18/2022 until 10/18/2023 Comprehensive metabo lic 2000 panel - Serum or Plasma COMP METABOLIC PANEL Lab Routine Malignant neoplasm of upper-outer quadrant of right breast in female, estrogen receptor positive (HCC) 11/18/2021 12:54 PM EDT [facility] Work Phone: End: 11-18-2022 Comprehensive metabolic 2000 panel - Serum or Plasma COMP METABOLIC PANEL Lab Routine Malignant neoplasm of upper-outer quadrant of right breast in female, estrogen receptor positive (HCC) Every 3 weeks for 18 Occurrences starting 11/18/2021 until 11/18/2022, 1 completed [facility] Work Phone: Comment on above: Every 3 weeks for 18 Occurrences starting 11/18/2021 until 11/18/2022, 1 completed End: 10-18-2023 Comprehensive metabolic 2000 panel - Serum or Plasma COMP METABOLIC PANEL Lab Routine Malignant neoplasm of upper-outer quadrant of right breast in female, estrogen receptor positive (HCC) Breast cancer metastasized to axillary lymph node, right (HCC) Every other week for 26 Occurrences starting 10/18/2022 until 10/18/2023 [facility] Work Phone: Comment on above: Every other week for 26 Occurrences starting 10/18/2022 until 10/18/2023 End: 12-12-2022 Ct abdomen & pelvis w/contrast material CT ABD/PEL W IVCON Radiology Routine Malignant neoplasm of right breast in female, estrogen receptor positive, unspecified site of breast (HCC) 1 Occurrences starting 11/12/2021 until 12/12/2022 [facility] Work Phone: Comment on above: 1 Occurrences starti ng 11/12/2021 until 12/12/2022 End: 03-14-2023 Ct abdomen & pelvis w/contrast material CT ABD/PEL W IVCON Radiology Routine Malignant neoplasm of female breast, unspecified estrogen receptor status, unspecified laterality, unspecified site of breast (HCC) 1 Occurrences starting 02/12/2022 until 03/14/2023 [facility] Work Phone: Comment on above: 1 Occurrences starti ng 02/12/2022 until 03/14/2023 End: 03-14-2023 CT CHEST W IVCON CT CHEST W IVCON Radiology Routine Lung nodules 1 Occurrences starting 02/12/2022 until 03/14/2023 [facility] Work Phone: Comment on above: 1 Occurrences starti ng 02/12/2022 until 03/14/2023 CT SIM PLANNING RADIATION ONCOLOGY CT SIM PLANNING RADIATION ONCOLOGY Radiology Routine Malignant neoplasm of upper-outer quadrant of right breast in female, estrogen receptor positive (HCC) Ordered: 05/10/2022 [facility] Work Phone: Comment on above: Ordered: 05/10/2022 End: 05-01-2023 Diagnostic mammography computer-aided detcj bi RAMOS DIAGNOSTIC BILAT Radiology Routine Malignant neoplasm of upper-outer quadrant of right breast in female, estrogen receptor positive (HCC) Breast cancer metastasized to axillary lymph node, right (HCC) 1 Occurrences starting 04/01/2022 until 05/01/2023 [facility] Work Phone: Comment on above: 1 Occurrences starti ng 04/01/2022 until 05/01/2023 IR PORTOCATH PLACEMENT IR PORTOC ATH PLACEMENT Radiology Routine Malignant neoplasm of upper-outer quadrant of right breast in female, estrogen receptor positive (HCC) Ordered: 10/21/2021 [facility] Work Phone: Comment on above: Ordered: 10/21/2021 End: 11-10-2021 Mri breast without&with contrast w/cad bilateral [facility] Work Phone: Comment on above: 1 Occurrences starti ng 11/10/2021 until 11/10/2021 End: 03-14-2023 Mri breast without&with contrast w/cad bilateral MRI BREAST WO/W IVCON BILAT Radiology Routine Malignant neoplasm of right breast in female, estrogen receptor positive, unspecified site of breast (HCC) Breast cancer metastasized to axillary lymph node, right (HCC) 1 Occurrences starting 02/12/2022 until 03/14/2023 [facility] Work Phone: Comment on above: 1 Occurrences starti ng 02/12/2022 until 03/14/2023 OT PLAN OF CARE CERTIFICATION OT PLAN OF CARE CERTIFICATION Procedures Routine Malignant neoplasm of upper-outer quadrant of right breast in female, estrogen receptor positive (HCC) Breast cancer metastasized to axillary lymph node, right (HCC) At risk for lymphedema Ordered: 05/13/2022 [facility] Work Phone: Comment on above: Ordered: 05/13/2022 OUTSIDE SURG PATH SL ARTHUR REVIEW OUTSIDE SURG PATH SLIDE REVIEW Lab Routine Ordered: 11/06/2021 [facility] Work Phone: Comment on above: Ordered: 11/06/2021 End: 12-12-2022 Perq breast loc device placemt 1st lesio us imag US LOC BREAST RT Radiology Routine Malignant neoplasm of right breast in female, estrogen receptor positive, unspecified site of breast (HCC) Breast cancer metastasized to axillary lymph node, right (HCC) 1 Occurrences starting 11/12/2021 until 12/12/2022 [facility] Work Phone: Comment on above: 1 Occurrences starti ng 11/12/2021 until 12/12/2022 [facility] Immunizations Immunization Date Immunization Notes Care Provider [facility] 02-24-2023 pneumococcal conjuga te (PCV20) vaccine, 20 valent (PREVNAR 20) [facility] Work Phone: [facility] 02-24-2023 respiratory syncytia l virus (RSV) vaccine, adjuvanted (AREXVY) [facility] Work Phone: [facility] 02-09-2023 influenza (aIIV4) vaccine, age 65+ yr, quadrivalent, PF (FLUAD QUAD) [facility] Work Phone: [facility] 01-15-2022 influenza virus vaccine, unspecified formulation Nate Bobby [facility] 01-15-2022 influenza, high-dose , quadrivalent vaccine (FLUZONE HIGH DOSE QUADRIVALENT) [facility] Work Phone: [facility] 11-24-2021 SARS-CoV-2 (COVID-19 ) [id number] Nate Bobby [facility] Comment on above: Result Comment: 2022: TPV65 04-16-2021 SARS-CoV-2 (COVID-19 ) mRNA-1273 vaccine Nate Bobby [facility] Comment on above: Result Comment: 2022: TPV65 01-14-2021 COVID-19 mRNA-1273 (Moderna) MD Jonah Carney Work Phone: [facility] 08-05-2020 COVID-19 mRNA-1273 (Moderna) MD Jonah Carney Work Phone: [facility] Comment on above: Result Comment: 2022: TPV65 07-08-2020 COVID-19 mRNA-1273 (Moderna) MD Jonah Carney Work Phone: [facility] Comment on above: Result Comment: 2022: TPV65 04-16-2020 COVID-19 vaccine, fu ll dose (MODERNA) Narendra Dao MD Work Phone: [facility] 12-13-2017 influenza, injectabl e, quadrivalent, preservative free Narendra Dao MD Work Phone: [facility] 12-13-2017 pneumococcal polysaccharide vaccine, 23 valent Narendra Dao MD Work Phone: [facility] 10-29-2016 influenza nasal, unspecified formulation Narendra Dao MD Work Phone: [facility] 09-10-2016 zoster vaccine, live Narendra mckay MD Work Phone: [facility] 03-23-2016 pneumococcal conjuga te vaccine, 13 valent Narendra Dao MD Work Phone: [facility] 03-31-2014 tetanus toxoid, redu carine diphtheria toxoid, and acellular pertussis vaccine, adsorbed Narendra Dao MD Work Phone: [facility] 03-21-2013 influenza nasal, unspecified formulation Narendra Dao MD Work Phone: [facility] 07-08-2008 tetanus toxoid, redu carine diphtheria toxoid, and acellular pertussis vaccine, adsorbed Narendra Dao MD Work Phone: [facility] 07-04-1997 TD(adult) unspecifie d formulation Narendra Dao MD Work Phone: [facility] NEGATED: Highlighted row has not occurred!11-08-2022 influenza virus vaccine, unspecified formulation Nate Bobby [facility] Comment on above: Result Comment: chelle ent says oncologist told her to wait awhile Payers Date Payer Category Payer Self-pay [id number] 2018 Medicare MEDICARE MEDICAR E A AND B [id number] 2018-Present [phone] [address] [address] [place] [address] Medicare [id number] 2008 Unknown ANTHEM NANCYEM BC BS FEP PPO [id number] 2008-Present [phone] [address] [place] [address] PPO [id number] 1959 Medicare [id number] 1959 Unknown [id number] 1953 Unknown [id number] .16.840.1.362538.3.579.2.593 1953 Unknown [id number] .16.840.1.572626.3.579.2.593 1953 Unknown [id number] 2.16.840.1.536340.3.579.2.593 1953 Unknown [id number] 2.16.840.1.621572.3.579.2.593 1953 Unknown [id number] 2.16.840.1.991962.3.579.2.593 1953 Unknown [id number] 2.16.840.1.290850.3.579.2.593 1953 Unknown [id number] 2.16.840.1.382874.3.579.2.593 1953 Unknown [id number] 2.16.840.1.270112.3.579.2.593 1953 Unknown [id number] 2.16.840.1.230392.3.579.2.727 1953 Unknown [id number] 2.16.840.1.127904.3.579.2.727 1953 Unknown [id number] 2..840.1.258380.3.579.2.727 1953 Unknown [id number] 2..840.1.638124.3.579.2.727 1953 Unknown [id number] 2..840.1.602199.3.579.2.727 1953 Unknown [id number] 2..840.1.036043.3.579.2.727 1953 Unknown [id number] ..840.1.588788.3.579.2.727 1953 Unknown [id number] .840.1.089955.3.579.2.727 1953 Unknown [id number] ..840.1.293941.3.579.2.727 1953 Unknown [id number] 2.16.840.1.837431.3.579.2.727 1953 Unknown [id number] 2.16.840.1.070428.3.579.2.727 Unknown [id number] 2.16. 840.1.262199.19 Unknown [id number] 2.16.840.1.114314.3.579.2.531 Unknown [id number] 2.16.840.1.297819.3.579.2.531 Unknown [id number] 2.16.840.1.550123.3.579.2.531 Unknown [id number] 2.16.840.1.868165.3.579.2.531 Unknown [id number] 2.16.840.1.421075.3.579.2.531 Unknown [id number] 2.16.840.1.644223.3.579.2.531 Social History Date Type Detail Facility Start: 05-04-2021 End: 10-21-2021 Tobacco smoking status IDIS Never smoked tobacco (finding) [facility] Start: 1955 [facility]igned At [facility] Start: 06-30-2022 End: 09-20-2022 Sex Assigned At [facility] Tobacco smoking stat [facility] Tobacco smoking consumption unknown [facility] History of tobacco use Passive smoker [facility] Start: 10-21-2021 Tobacco use and exposure Smoke less tobacco non-user [facility] Start: 10-21-2021 End: 02-12-2022 Alcohol intake Current drinker of alcohol (finding) [facility] Start: 10-11-2021 End: 01-15-2022 Exposure to SARS-CoV-2 (event) Not sure [facility] Start: 10-31-2021 End: 11-10-2021 Exposure to SARS-CoV-2 (event) Unable to assess [facility] Start: 03-19-2022 End: 06-30-2022 Alcohol intake [facility] Start: 03-22-2022 End: 05-02-2023 Alcohol intake Ex-drinker (finding) [facility] Start: 03-22-2022 Alcohol Comment 1 glass of wne a mon th [facility] Adult Depression Screening Assessment [address] [facility] Start: 10-14-2021 Gender identity Identifies as female gender (finding) [facility] Start: 10-14-2021 Sexual orientation Choose not to dis close [facility] Medical Equipment Procedure Code Equipment Code Equipment Origin al Text Equipment Identifier Dates Arthroplasty, shoulder, total Total reverse shoulder prosthesis [id number] 2099 FDA Start: 05-20-2021 Arthroplasty, shoulder, total Total reverse shoulder prosthesis [id number])[id number] FDA Start: 05-20-2021 Arthroplasty, shoulder, total Total reverse shoulder prosthesis [id number])21.0 1696 FDA Start: 05-20-2021 Arthroplasty, shoulder, total Total reverse shoulder prosthesis [id number] 0489 FDA Start: 05-20-2021 Arthroplasty, shoulder, total Total reverse shoulder prosthesis [id number])21.0 1812 FDA Start: 05-20-2021 Arthroplasty, shoulder, total Total reverse shoulder prosthesis [id number] FDA Start: 05-20-2021 Arthroplasty, shoulder, total Total reverse shoulder prosthesis [id number] FDA Start: 05-20-2021 Arthroplasty, shoulder, total Total reverse shoulder prosthesis [id number])19.0 2237 FDA Start: 05-20-2021 Arthroplasty, shoulder, total Total reverse shoulder prosthesis [id number])[id number] FDA Start: 05-20-2021 Arthroplasty, shoulder, total Total reverse shoulder prosthesis ()[id number])2021 [id number] FDA Start: 05-20-2021 Yuliya Mortar Carrier Reflector [id number] Start: 12-01-2021 Comment on above: Description: Yuliya sc out reflector Yuliya Mortar Car[employer] Reflector [id number] Start: 12-01-2021 Comment on above: Description: Yuliya sc out reflector [employer] Port-11/05/2021 [id number] Start: 11-05-2021 Clinical Notes 03-17-2021 to 08-02-2023 Marsha Horowitz LMT - 08/02/2023 12:25 PM Narendra Sevilla MD - 08/01/2023 3:00 PM EDTPatient InstructionsLoraine Booker MA - 08/01/2023 2:19 PM EDTPatient Instructions Note Date & Type Note Facility 08-02-2023 Note [facility] 08-02-2023 History of Present illness Narrative Patient Name: Kiah Cortes : 1955 Referred For: Chair massage Diagnosis: muscle soreness Chief Complaint: Relaxation Anxiety (pre): patient declined to answer Pain (pre): patient declined to answer Stress Level (pre): patient declined to answer Therapy Provided: Massage Therapy Area(s) Treated: right shoulder, lower back Anxiety (post): patient declined to answer Pain (post): patient declined to answer Stress Level (post): patient declined to answer Visit Outcome: Better Comments: patient state of right shoulder and low back soreness. Treatment Plan: Bengali relaxation effleurage and petrissage to cervical, upper trapezius and lower back. Light vibration to right arm and deltoid Care Team contacted: N/A Signature: Marsha Horowitz LMT Date: August 02, 2023 Time: 12:25 PM documented in this encounter [facility] 08-01-2023 History of Present illness Narrative Images from the original note were not included. NAME: Kiah Cortes CLINIC NO.: [id number] DATE OF SERVICE: August 01, 2023 [facility] Some elements in this clinic note that are critical to medical decision making have been carefully reviewed and included from a prior clinic note dated: June 08, 2023 ([facility]addy) Referring Provider: Dr. Shaikh West Additional Clinicians involved in Kiah Cortes's care: Dr. Shahana Mercedes DIAGNOSIS: Right breast cancer ASSESSMENT: 68 year old woman with right breast lump diagnosed with Stage cIIA IDC ER/HI++, HER2(0) breast cancer cT2 cN1, cMx in need of consideration for neoadjuvant chemotherapy and resection following completion of chemotherapy. Patient started neoadjuvant Taxotere and cytoxan with GSF on 12/04/21. Tolerated well with minor side effects. Pulmonary nodule--0.3 cm RML nodule identified on CT chest was most likely related to her recovering URI. - repeat CT chest with findings most consistent with radiation changes but will need to keep monitoring in 3-6 months (April-June 2023) Thickened L adrenal gland on CTs--consider repeat imaging following treatment. Pre-op Cts with concern for diverticulitis. Will folow with GI. S/p R0 resection with persisting disease following neoadjuvant therapy. Given high risk disease (6 nodes +), plan was to treat in the adjuvant setting according to [place] [facility] trial of Abemaciclib + AI. Started September 22, 2022 but has intermittent breaks. Ultimately she is not tolerating treatment. Shingles Resolved PLAN: Discontinue Verzenio Hold Arimidex for 4 weeks Restart Arimidex only in 4 weeks (08/28) RTC in 8 weeks Labs same day HPI: CASE HISTORY: Reverse Chronological Order 05/02/2023 - CT Chest: Subpleural reticular and groundglass opacities in the anterior right upper lobe, likely on the basis of evolving postradiation fibrosis. No evidence of bulky intrathoracic lymphadenopathy. Stable posttreatment changes in the right breast. 03/21/2023 - Decrease Verzenio to 100mg BID 02/24/2023 - Held abemaciclib 1 week in order to allow bone marrow recovery still hasn't recovered. Will hold longer. May need to change dosing. 02/17/2023 - CT Chest: Increasing regions of groundglass opacification within the right upper lobe, encompassing the previously noted right upper lobe nodular opacity. Findings are favored to be secondary to evolving postradiation fibrosis, or new infection/inflammation. Continued attention on surveillance imaging is suggested. Stable nodular thickening of the left adrenal, likely secondary to hyperplasia. 01/03/2023 - CT CAP: New semisolid nodule and subcentimeter solid nodule in the right upper lobe of the lungs with a new small right pleural effusion. Resection of patient's previously seen right axillary lymph nodes and compared to the prior study. There is no suspicious axillary, mediastinal, or hilar lymphadenopathy. There is intraluminal with skin thickening of the right breast. No evidence of metastatic disease in the abdomen or pelvis. There is stable nodular thickening of the left adrenal gland. Given the stability, this is likely due to adenomatous hyperplasia. 11/15/2022 - Resumed Abemaciclib 10/07/2022 - Mammogram negative. 09/30/2022 - Held abemaciclib due to rash - herpetic rash. 09/22/2022 - Started Abemaciclib with anastrozole 08/02/2022 - Finished RT. 05/24/2022 - Colonoscopy - Sigmoid diverticulosis, otherwise normal 03/25/2022 - Rt Breast Lumpectomy and AxLND - residual IDC with signet ring features and treatment effect. IDC grade 2, 22 mm, margins negative, ypT2,pN2a, ER+HI+, HER2 neg (0), Right axilly content - 08/09 nodes involved with macro-metastatic disease. VANI in at least one LN. 02/26/2022 - CT CAP : Right axillary LN, subtle subpleural RML nodular opacity and subtle groundglass opacities. Sigmoid colon thickening. 12/04/2021-02/12/2022 - 4 cycles Taxotere + Cytoxan neoadjuvant. 11/27/2021 - Bone scan: No suspicious foci of activity. No scintigraphic evidence of osseous metastases. Likely degenerative/arthritic changes as described. 11/20/2021 - CT abdomen and pelvis: Nonspecific nodular thickening of the left adrenal gland. Consider interval follow-up. Otherwise no evidence of intra-abdominal/intrapelvic metastases. Subcentimeter left hepatic cyst. Sigmoid colon diverticulosis without evidence of diverticulitis. Nonspecific haziness of the mesenteric fat may represent edema or infectious/inflammatory etiologies. 11/10/2021 - MRI Breasts: - Birads 6 - rt breast - 7cmfn @ 10:00 3.6x3.1x2.5, 3-[address], lft breast Birads2 10/30/2021 - CT chest: Multiple enlarged right axillary lymph nodes, highly suspicious for neoplastic involvement. A 0.3 cm right middle lobe pulmonary nodule is nonspecific. Continued attention on subsequent studies is suggested. 10/02/2021 - US & Diag mammography - Right breast 12 O'Clock, 7 cm from nipple - 2.9 x 2.5 cm mass - x IDC +Axillary LN. G1, ER/HI 90/80% HER2 ([facility]) = 0 09/30/2021 - right breast ultrasound: 2.9 x 2.5 x 2.3 cm mass 8 cm from the nipple at the 9 and 10 o'clock position of the right breast suspicious for malignancy. Suspicious lymph nodes in the right axilla noted. 08/2021 - noted right breast mass on self exam. Updated Visit, August 01, 2023: Prince Edward Isl returns today for a follow up. She complains of constant fatigue and pain, despite reduced dose of Verzenio. She has pitting edema in both lower extremities. She endorses slight improvement to her symptoms while on a break from Verzenio. She will discontinue Verzenio and hold Arimidex for 4 weeks. Her massage therapist noticed some potentially worrisome spots - 3mm keratosis on upper left back, black mole on back of right scapula. I believe these are benign however she could follow up with dermatology. Updated Visit, June 08, 2023: Prince Edward Isl returns today, she is doing a little bit better. She has started taking a Vitamin D which has helped with her energy and motivation - I also recommended SL B12. She continues having back and knee pain. Perineal lesion - she will follow with her PCP. She will hold Verzenio while she is visiting her son in [place]. Updated Visit, May 16, 2023: Virtual Visit Doing better after holding Verzenio for last 2 weeks. Would like to resume. Updated Visit, May 02, 2023: Prince Edward Isl returns today for a follow up. She has been feeling down lately, but does not think she is depressed. She may find help with antidepressants. She notes pain in every bone in her body. Hold Verzenio for 2 weeks for recovery. If no improvement, will hold Arimidex. She wakes up more congested and SOB every morning despite using nasal spray and inhaler. Updated Visit, April 11, 2023: Prince Edward Isl returns for follow up. No verzenio 100 mg bid and anastrozole. She is doing well overall. Has had some mild diarrhea episodes, but easily resolved. Denies any nausea or vomiting. She has chronic underlying shortness of breath which is unchanged. Denies cough. She is tolerating treatment well. Currently on anastrozole 1mg daily and verzenio 100 mg bid. Today with grade I thrombocytopenia and leukopenia. Would recommend continuing current doses unless counts become greater than or equal to grade 3 per Lexicomp and the package insert. Updated Visit, March 21, 2023: Prince Edward Isl returns today. WBC and platelets are back up. She does not feel as tired anymore. She has lost her hair. She reports her field of vision intermittently looks like a kaleidescope, will follow up with eye doctor. She says she wants to donate her body to science when she passes away. Updated Visit, February 24, 2023: Virtual Visit Prince Edward Isl is doing well and feels good but review of her labs show persistent cyctopenias. Will hold verzenio longer. Discussed potential plans to decrease dose. Updated Visit, February 17, 2023: Prince Edward Isl returns for follow up today. She reports being tired lately and experiencing indigestion. She endorses experiencing a mild cough and some congestion. Has also been experiencing diarrhea for the past 2 days. She looks slightly pale today, she thinks this could be due to not having eaten yet today. Reports doing okay on Verzenio. She has been having better glycemic control lately. We reviewed her labs, she has a slightly elevated Ca. She thinks she is taking Ca supplement. Her WBC count has declined a bit further, I would like her to hold Verzenio for a week. Her CT report from radiology is still pending, but we looked at the images. My impression is that the nodule could be infectious, but we will need to await official interpretation by radiology. Updated Visit, January 27, 2023: Prince Edward Isl is here by herself today and is doing well and feeling pretty good. Counts recovered. Patient held verzenio for 3 weeks. Kidney function is down will monitor. Updated Visit, January 07, 2023: Prince Edward Isl is here today accompanied by Roberta for follow up to review her recent labs and imaging. She has been doing fine lately, says she has been sitting on the couch a lot not doing much. I would recommend repeating the scans in a few weeks because the area of concern is too small to biopsy. She should wait on getting her vaccines until she hold her meds for a week to see if there is an improvement with her blood counts. Updated Visit, December 13, 2022: Kiah Cortes returns for follow-up. At her last visit the abemaciclib was resumed. She complains of fatigue and not having any motivation. She used to ronni and now is not even motivated to do that. Otherwise, she is tolerating treatment well. She also remains on Arimidex. She denies any areas of pain. She denies fevers, chills, night sweats or signs/symptoms of infection. No bleeding or abnormal bruising. Updated Visit, November 15, 2022: Rash mostly resolved. Still has some swelling in the side of the breast.rash resolved. Chaperoned Breast exam (Reuben Payne) - right breast with dependent edema left breast normal. Updated Visit, October 18, 2022: Prince Edward Isl returns today and her herpetic rash is still resolving. Pain has resolved but complaints of fullness and swelling in the right breast in the site of radiation. Chaperoned exam (Reuben Payne) right breast with mild lymphedema. Herpetic rash still resolving. Updated Visit, October 05, 2022: Prince Edward Isl returns for an urgent visit. She started her abemaciclib on 09/22/22 and on 09/30/2022 she noticed an itchy, painful rash to her right back/bra line area. It continued to spread around to her underarm area and on the back of her right arm. No fevers, chills. Updated Visit, September 20, 2022: Chaperoned Breast exam (Reuben Payne) right breast with lymphedema and some normal dimpling with healed scar in the axillary tail. Left breast is normal in texture. Bilateral axillary exam is negative. Doing well with Arimidex single agent now. Is willing to start on verzenio according to [facility]. Feels her feet have swelling and mild neuropathy. Mild neuropathy also in hands when holding the steering wheel. Itching of her palms that sometimes resolves with lotion. Updated Visit, August 30, 2022: Just got back from visiting her son in [place] and saw her daughter from [place] and all of her grand kids. Had lots of bone aches with arimidex and so will restart single agent. After 3 weeks will start on verzenio. Updated Visit, July 23, 2022: Continues radiation for 10 more fractions. Otherwise doing well. Hands still troubling her with knitting. Otherwise doing well. Updated Visit, May 14, 2022: Still healing Chap ex (Reuben Padilla) - right breast - axillary scar with slight dehiscence - silver sulvidene in place. Radiation is unable to start yet. Updated Visit, April 02, 2022: Prince Edward Isl returns having had her resection last week and soaping machine back tender with drains in place. We will need to discuss adjuvant therapy in more depth as she had fairly significant persistent disease following resection in the resected specimen. I would presume that she fits along side the patient enrolled in the [place] E trial of abemaciclib + AI in such women that had neoadjuvant chemotherapy. We will discuss this more in depth when patient can spend time focusing on discussion and not feeling so uncomfortable. Abemaciclib plus ET demonstrated superior IDFS versus ET alone (P = .01; hazard ratio, 0.75; 95% CI, 0.60 to 0.93), with 2-year IDFS rates of 92.2% versus 88.7%, respectively. She had concern for diverticulitis on CT abdomen prior to surgery and will follow with GI for colonoscopy. Updated Visit, February 12, 2022: Kiah Cortes returns for follow-up and her final treatment with Taxotere and Cytoxan. She is tolerating treatment well. She has some sinus drainage and has been coughing this morning. She denies fevers, chills, night sweats and signs/symptoms of infection. No bleeding or abnormal bruising. Her biggest side effect from treatment is fatigue. Otherwise, no significant side effects. She wishes to proceed with treatment as planned. Updated Visit, February 05, 2022: Here with Virginia hands improved Port flush today made her feel dizzy She's more fatigued than expected Looks cristina BP is notably decreased Renal function has dropped acutely. Updated Visit, January 15, 2022: Kiah Cortes here for cycle 3 Taxotere and Cytoxan. Since her last visit she has noticed some peeling of both of her hands. She denies any redness or pain to her hands. She has been keeping her hands well lotion. She also had right heel pain that lasted 2 to 3 days and she described it like stepping on glass or needles. She has had some fatigue. She denies fevers, chills, night sweats and signs/symptoms of infection. No bleeding or abnormal bruising. Overall, she is doing well and wishes to proceed with treatment as planned. 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 Updated Visit, December 14, 2021: Prince Edward Isl returns for jagdish counts and follow up after starting neoadjuvant Taxotere and cyclophosphamide with GFS on 12/04/21. She does report having a headache for 2 days following treatment that was relieved with tylenol. Did have some constipation and hard stools. Had one episode of blood in stool on 12/11/21. None since. No nausea, vomiting or diarrhea. Appetite and taste is down but she is eating. Drinking is fine, but wine and coffee tastes bad. Some dry mouth but drinking at least 80-120cc of water everyday. No fevers, chills, cough, or shortness of breath. Updated Visit, December 04, 2021: Prince Edward Isl returns with Virginia her daughter. Reviewed CT Abdomen / Pelvis. Bone scan was negative. Will proceed with treatment. Chaperoned exam notable for 3-4 cm right upper outer quadrant breast mass easily palpable. No palpable axillary LN's. Updated Visit, November 18 2021: Prince Edward Isl returns with her daughter Virginia and has seen Dr. Mercedes and completed her MRI as well as CT Chest. Given the number of LN's involved, additional staging studies have been ordered to be completed including NM Bone scan and CT abdomen / Pelvis. Once these are completed and negative, we can proceed with planned neoadjuvant chemotherapy with up to 6 cycles of TC. Aside from being anxious, she is doing well. Initial Visit, October 21, 2021: Kiah Cortes presents today Hematology and Oncology evaluation. She is a 66 year old female who noted a mass on self breast exam in the right breast. 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 She's here with her daughter [place]. She was referred for medical oncology opinion regarding breast cancer. Will need to complete staging and anticipate lisa-adjuvant chemotherapy give peterson disease. FHX cancer: Daughter Virginia - had cervical not ovarian Mother had lung cancer Another Daughter had lymphoma PATHOLOGY/MOLECULAR DATA: Breast, right, at 12:00, 7 cm from the nipple, ultrasound-guided core biopsy ([id number], part A; 10/02/2021): ---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 ---Please see comment. Lymph node, right axillary tail, ultrasound-guided core biopsy ([id number], part B; 10/02/2021): ---Metastatic mammary carcinoma with signet ring features, measuring at least 13 mm in greatest dimension, likely representing a lymph node completely replaced by carcinoma. ---Please see comment. Right breast invasive carcinoma: Right axillary tail metastasis: ER: POSITIVE (100%, strong) ER: POSITIVE (100%, strong) HI: POSITIVE (100%, strong) HI: POSITIVE (100%, strong) HER2 IHC: NEGATIVE (0) HER2 IHC: NEGATIVE (0) Controls react as expected Controls react as expected REVIEW OF SYSTEMS Per HPI and otherwise negative by full review of organ systems. ECOG PERFORMANCE STATUS: 0 PHYSICAL EXAMINATION: Vitals: BP 113/70 Pulse 73 Temp (Src) 98 (Temporal) Resp 16 Ht 5' 2.008 (1.58m) Wt 219 lb 12.8 oz (99.7kg) SpO2 97% BMI 40.19 kg/(m^2). Body surface area is 2.09 meters squared. Exam limited to gross visualization where appropriate. Gen.: This is an age-appropriate patient in no acute distress. Head: Appears atraumatic with no visible lesions. Eyes: Pupils equally round and reactive to light, extraocular muscles are intact. Neck: Supple. Respiratory: Appears to be respiring comfortably. Neurologic: Nonfocal to gross visualization. Alert and oriented 3. Psychiatric: No evidence of inappropriate anxiety or depression. Skin: Visible areas of skin without rash, lesions, wounds or petechiae. Extremities: Pitting edema in both lower extremities ALLERGIES: ALLERGIES Allergen Reactions Lisinopril Unknown Seasonal Allergies Itching, Other: See Comments MEDICATIONS: abemaciclib (VERZENIO) 50 mg tablet^take 1 tablet by mouth 2 times a day^Disp: 60 tablet^Rfl: 1 SYMBICORT 160-4.5 mcg/actuation inhaler^Inhale 2 Puffs as instructed two times a day.^Disp: ^Rfl: multivit-min/iron/FA/vit K/lut (CENTRUM SILVER WOMEN ORAL)^Take by mouth once daily. Over 50^Disp: ^Rfl: anastrozole (ARIMIDEX) 1 mg tablet^Take 1 tablet by mouth once daily.^Disp: 90 tablet^Rfl: 1 ondansetron (ZOFRAN) 8 mg tablet^Take 1 tablet by mouth every 8 hours as needed for nausea/vomiting.^Disp: 90 tablet^Rfl: 1 prochlorperazine (COMPAZINE) 10 mg tablet^Take 1 tablet by mouth every 6 hours as needed.^Disp: 100 tablet^Rfl: 1 loperamide (ANTI-DIARRHEAL) 2 mg cap(s)^Take 1 capsule by mouth four times daily as needed for diarrhea.^Disp: 100 capsule^Rfl: 1 celecoxib (CELEBREX) 100 mg capsule^Take 100 mg by mouth twice daily.^Disp: ^Rfl: albuterol HFA (PROVENTIL HFA, VENTOLIN HFA) 90 mcg/actuation inhaler^INHALE 2 PUFFS 4 TIMES PER DAY NEEDED FOR SHORTNESS OF BREATH OR WHEEZING^Disp: ^Rfl: atorvastatin (LIPITOR) 40 mg tablet^Take 40 mg by mouth once daily.^Disp: ^Rfl: loratadine (CLARITIN) 10 mg tablet^Take 10 mg by mouth once daily.^Disp: ^Rfl: metFORMIN (GLUCOPHAGE) 1,000 mg tablet^Metformin Active 1000 MG PO Every morning May 04, 2021 3:24pm^Disp: ^Rfl: carvedilol (COREG) 25 mg tablet^Take 25 mg by mouth twice daily.^Disp: ^Rfl: acetaminophen (TYLENOL) 325 mg tablet^Take 650 mg by mouth every 6 hours as needed.^Disp: ^Rfl: amLODIPine (NORVASC) 10 mg tablet^Take 10 mg by mouth once daily.^Disp: ^Rfl: levothyroxine sodium (LEVOTHYROXINE ORAL)^Take 50 mcg by mouth once daily.^Disp: ^Rfl: rOPINIRole (REQUIP) 0.25 mg tablet^Take 0.25 mg by mouth daily at bedtime.^Disp: ^Rfl: LABORATORY VALUES: WBC (k/uL) Date Value 08/01/2023 2.62 (L) RBC (m/uL) Date Value 08/01/2023 3.25 (L) Hemoglobin (g/dL) Date Value 08/01/2023 11.2 (L) Hematocrit (%) Date Value 08/01/2023 33.2 (L) MCV (fL) Date Value 08/01/2023 102.2 (H) MCH (pg) Date Value 08/01/2023 34.5 (H) MCHC (g/dL) Date Value 08/01/2023 33.7 RDW-CV (%) Date Value 08/01/2023 14.1 Platelet Count (k/uL) Date Value 08/01/2023 161 MPV (fL) Date Value 08/01/2023 9.1 Glucose (mg/dL) Date Value 08/01/2023 111 (H) BUN (mg/dL) Date Value 08/01/2023 17 Creatinine (mg/dL) Date Value 08/01/2023 1.33 (H) Sodium (mmol/L) Date Value 08/01/2023 140 Potassium (mmol/L) Date Value 08/01/2023 4.4 Chloride (mmol/L) Date Value 08/01/2023 104 CO2 (mmol/L) Date Value 08/01/2023 25 Protein, Total (g/dL) Date Value 08/01/2023 7.1 Albumin (g/dL) Date Value 08/01/2023 4.4 Calcium, Total (mg/dL) Date Value 08/01/2023 10.7 (H) Alkaline Phosphatase (U/L) Date Value 08/01/2023 84 Bilirubin, Total (mg/dL) Date Value 08/01/2023 0.4 AST (U/L) Date Value 08/01/2023 19 ALT (U/L) Date Value 08/01/2023 15 DIAGNOSIS: (C50.911, C77.3) Breast cancer metastasized to axillary lymph node, right (HCC) (primary encounter diagnosis) Plan: COMPREHENSIVE METABOLIC PANEL, COMPLETE BLOOD COUNT AND DIFFERENTIAL, CA 15-3 BLD, CA 27.29 BLOOD (C50.411, Z17.0) Malignant neoplasm of upper-outer quadrant of right breast in female, estrogen receptor positive (HCC) Plan: COMPREHENSIVE METABOLIC PANEL, COMPLETE BLOOD COUNT AND DIFFERENTIAL, CA 15-3 BLD, CA 27.29 BLOOD (M79.10) Muscle aches Plan: COMPREHENSIVE METABOLIC PANEL, COMPLETE BLOOD COUNT AND DIFFERENTIAL, CA 15-3 BLD, CA 27.29 BLOOD PAST MEDICAL HISTORY Diagnosis Date Asthma Breast cancer (HCC) right breast DMII (diabetes mellitus, type 2) (HCC) 03/19/2022 Fibromyalgia HLD (hyperlipidemia) 03/19/2022 HTN (hypertension) Hypothyroidism 03/19/2022 Migraine Obesity Primary hypertension 03/19/2022 RLS (restless legs syndrome) 03/19/2022 PAST SURGICAL HISTORY Procedure Laterality Date APPENDECTOMY BREAST LUMPECTOMY HX Right 2022 BX OF BREAST; INCISIONAL Right COLONOSCOPY SCREENING LIGATE FALLOPIAN TUBE MASTECTOMY, PARTIAL Right 03/25/2022 PAST SURGICAL HISTORY OF Rt Shoulder PAST SURGICAL HISTORY OF Rt knee tendons PAST SURGICAL HISTORY OF Right shoulder tendons Social History Tobacco Use Smoking status: Never Passive exposure: Past Smokeless tobacco: Never Vaping Use Vaping Use: Never used Substance Use Topics Alcohol use: Not Currently Comment: 1 glass of wne a month Drug use: Never FAMILY HISTORY Problem Relation Age of Onset Cancer Mother lung Hypertension Mother Heart disease Father Hypertension Father Cancer Sister Cancer Brother brain Cervical Cancer Daughter Lymphoma Daughter I spent a total of 40 minutes on the date of service which included preparing to see the patient, [id number] patient care, completing clinical documentation, performing a medically appropriate examination, counseling and educating the patient/family/caregiver, ordering medications, tests, or procedures, independently interpreting results (not separately reported), communicating results to the patient/family/caregiver, and care coordination (not separately reported). Narendra Dao MD, CPE Hematology and Oncology Services Provided at: [place], [place] Scribe Attestation: This note was scribed by Bijal Coronado on August 01, 2023 under the direction and supervision of Dr. Narendra Dao. I attest that all of the information documented is correct to the best of my knowledge. Provider Attestation: I, Narendra Dao MD, attest that all information documented by the above scribe is correct, and was supervised by me and under my direction. CC: Dr. Reece Mercedes documented in this encounter [facility] 08-01-2023 Note [facility] 08-01-2023 Instructions Bijal Coronado - 08/01/2023 2:43 PM EDT Discontinue Verzenio Hold Arimidex for 4 weeks Restart Arimidex only in 4 weeks (08/28) RTC in 8 weeks Labs same day documented in this encounter [facility] 08-01-2023 Nurse Note Patient states she aches everywhere it has been going on for awhile, exhausted, she also sat in a chir and tipped over. Patient states that she has areas on skin that she was told do not look good. Should she see a Oven Stripper? Loraine Booker MA [facility] 08-01-2023 Nurse Note Patient states she aches everywhere it has been going on for awhile, exhausted, she also sat in a chir and tipped over. Patient states that she has areas on skin that she was told do not look good. Should she see a Oven Stripper? Loraine Booker MA documented [facility] this encounter [facility] [facility]23 Note [facility] 07-05-2023 History of Present illness Narrative Patient Name: Kiah Cortes : 1955 Referred For: CHAIR MASSAGE Diagnosis: MUSCLE SORENESS Chief Complaint: Relaxation Anxiety (pre): patient declined to answer Pain (pre): patient declined to answer Stress Level (pre): patient declined to answer Therapy Provided: Massage Therapy Area(s) Treated: SHOULDERS, BACK/HIPS AND NECK Anxiety (post): patient declined to answer Pain (post): patient declined to answer Stress Level (post): patient declined to answer Visit Outcome: Better Comments: Treatment Plan: ALBANIAN MASSAGE TO CERVICAL, UPPER SHOULDERS, MID-LOWER BACK. FRICTION TO HIPS AND QUADS/HAMS. Care Team contacted: N/A Signature: Marsha Horowitz LMT Date: July 05, 2023 Time: 2:47 PM documented in this encounter [facility] 06-30-2023 Note [facility] 06-30-2023 History of Present illness Narrative SOCIAL WORK FOLLOW UP NOTE: [facility] Date of service: TOPICS ADDRESSED: mileage log PLAN: Continue follow up as needed Assigned SW listed in Care Team tab: Yes SW completed and faxed a mileage reimbursement form on the Patient's behalf to [facility] for the months of February - May 2023. STEPHY Kitchen documented in this encounter [facility] 06-09-2023 Miscellaneous Notes Per pt, recommended that she take sublingual B12 at yesterday's visit. 's note reviewed. Per note: She has started taking a Vitamin D which has helped with her energy and motivation - I also recommended SL B12. Per pharmacy, SL B12 is available over the counter. Pt notified and verbalizes understanding. No additional questions noted. Miriam Nj, HENRRY documented in this encounter [facility] 06-08-2023 History of Present illness Narrative Images from the original note were not included. NAME: Kiah Cortes [facility] NO.: [id number] DATE OF SERVICE: June 08, 2023 (Maddy) Some elements in this clinic note that are critical to medical decision making have been carefully reviewed and included from a prior clinic note dated: May 16, 2023 (Maddy) Referring Provider: Dr. Shaikh West Additional Clinicians involved in Kiah Cortes's care: Dr. Shahana Mercedes DIAGNOSIS: Right breast cancer ASSESSMENT: 68 year old woman with right breast lump diagnosed with Stage cIIA IDC ER/HI++, HER2(0) breast cancer cT2 cN1, cMx in need of consideration for neoadjuvant chemotherapy and resection following completion of chemotherapy. Patient started neoadjuvant Taxotere and cytoxan with GSF on 12/04/21. Tolerated well with minor side effects. Pulmonary nodule--0.3 cm RML nodule identified on CT chest was most likely related to her recovering URI. - repeat CT chest with findings most consistent with radiation changes but will need to keep monitoring in 3-6 months (April-June 2023) Thickened L adrenal gland on CTs--consider repeat imaging following treatment. Pre-op Cts with concern for diverticulitis. Will folow with GI. S/p R0 resection with persisting disease following neoadjuvant therapy. Given high risk disease (6 nodes +), plan was to treat in the adjuvant setting according to [place] [facility] trial of Abemaciclib + AI. Started September 22, 2022. Shingles Resolved PLAN: Labs and restart Verzenio 50mg BID in 3 weeks RTC in 7 weeks and repeat labs (4 weeks after using reduced dose of Verzenio) HPI: CASE HISTORY: Reverse Chronological Order 05/02/2023 - CT Chest: Subpleural reticular and groundglass opacities in the anterior right upper lobe, likely on the basis of evolving postradiation fibrosis. No evidence of bulky intrathoracic lymphadenopathy. Stable posttreatment changes in the right breast. 03/21/2023 - Decrease Verzenio to 100mg BID 02/24/2023 - Held abemaciclib 1 week in order to allow bone marrow recovery still hasn't recovered. Will hold longer. May need to change dosing. 02/17/2023 - CT Chest: Increasing regions of groundglass opacification within the right upper lobe, encompassing the previously noted right upper lobe nodular opacity. Findings are favored to be secondary to evolving postradiation fibrosis, or new infection/inflammation. Continued attention on surveillance imaging is suggested. Stable nodular thickening of the left adrenal, likely secondary to hyperplasia. 01/03/2023 - CT CAP: New semisolid nodule and subcentimeter solid nodule in the right upper lobe of the lungs with a new small right pleural effusion. Resection of patient's previously seen right axillary lymph nodes and compared to the prior study. There is no suspicious axillary, mediastinal, or hilar lymphadenopathy. There is intraluminal with skin thickening of the right breast. No evidence of metastatic disease in the abdomen or pelvis. There is stable nodular thickening of the left adrenal gland. Given the stability, this is likely due to adenomatous hyperplasia. 11/15/2022 - Resumed Abemaciclib 10/07/2022 - Mammogram negative. 09/30/2022 - Held abemaciclib due to rash - herpetic rash. 09/22/2022 - Started Abemaciclib with anastrozole 08/02/2022 - Finished RT. 05/24/2022 - Colonoscopy - Sigmoid diverticulosis, otherwise normal 03/25/2022 - Rt Breast Lumpectomy and AxLND - residual IDC with signet ring features and treatment effect. IDC grade 2, 22 mm, margins negative, ypT2,pN2a, ER+HI+, HER2 neg (0), Right axilly content - 08/09 nodes involved with macro-metastatic disease. VANI in at least one LN. 02/26/2022 - CT CAP : Right axillary LN, subtle subpleural RML nodular opacity and subtle groundglass opacities. Sigmoid colon thickening. 12/04/2021-02/12/2022 - 4 cycles Taxotere + Cytoxan neoadjuvant. 11/27/2021 - Bone scan: No suspicious foci of activity. No scintigraphic evidence of osseous metastases. Likely degenerative/arthritic changes as described. 11/20/2021 - CT abdomen and pelvis: Nonspecific nodular thickening of the left adrenal gland. Consider interval follow-up. Otherwise no evidence of intra-abdominal/intrapelvic metastases. Subcentimeter left hepatic cyst. Sigmoid colon diverticulosis without evidence of diverticulitis. Nonspecific haziness of the mesenteric fat may represent edema or infectious/inflammatory etiologies. 11/10/2021 - MRI Breasts: - Birads 6 - rt breast - 7cmfn @ 10:00 3.6x3.1x2.5, 3-[address], lft breast Birads2 10/30/2021 - CT chest: Multiple enlarged right axillary lymph nodes, highly suspicious for neoplastic involvement. A 0.3 cm right middle lobe pulmonary nodule is nonspecific. Continued attention on subsequent studies is suggested. 10/02/2021 - US & Diag mammography - Right breast 12 O'Clock, 7 cm from nipple - 2.9 x 2.5 cm mass - x IDC +Axillary LN. G1, ER/HI 90/80% HER2 ([facility]) = 0 09/30/2021 - right breast ultrasound: 2.9 x 2.5 x 2.3 cm mass 8 cm from the nipple at the 9 and 10 o'clock position of the right breast suspicious for malignancy. Suspicious lymph nodes in the right axilla noted. 08/2021 - noted right breast mass on self exam. Updated Visit, June 08, 2023: Prince Edward Isl returns today, she is doing a little bit better. She has started taking a Vitamin D which has helped with her energy and motivation - I also recommended SL B12. She continues having back and knee pain. Perineal lesion - she will follow with her PCP. She will hold Verzenio while she is visiting her son in [place]. Updated Visit, May 16, 2023: Virtual Visit Doing better after holding Verzenio for last 2 weeks. Would like to resume. Updated Visit, May 02, 2023: Prince Edward Isl returns today for a follow up. She has been feeling down lately, but does not think she is depressed. She may find help with antidepressants. She notes pain in every bone in her body. Hold Verzenio for 2 weeks for recovery. If no improvement, will hold Arimidex. She wakes up more congested and SOB every morning despite using nasal spray and inhaler. Updated Visit, April 11, 2023: Prince Edward Isl returns for follow up. No verzenio 100 mg bid and anastrozole. She is doing well overall. Has had some mild diarrhea episodes, but easily resolved. Denies any nausea or vomiting. She has chronic underlying shortness of breath which is unchanged. Denies cough. She is tolerating treatment well. Currently on anastrozole 1mg daily and verzenio 100 mg bid. Today with grade I thrombocytopenia and leukopenia. Would recommend continuing current doses unless counts become greater than or equal to grade 3 per Lexicomp and the package insert. Updated Visit, March 21, 2023: Prince Edward Isl returns today. WBC and platelets are back up. She does not feel as tired anymore. She has lost her hair. She reports her field of vision intermittently looks like a kaleidescope, will follow up with eye doctor. She says she wants to donate her body to science when she passes away. Updated Visit, February 24, 2023: Virtual Visit Prince Edward Isl is doing well and feels good but review of her labs show persistent cyctopenias. Will hold verzenio longer. Discussed potential plans to decrease dose. Updated Visit, February 17, 2023: Prince Edward Isl returns for follow up today. She reports being tired lately and experiencing indigestion. She endorses experiencing a mild cough and some congestion. Has also been experiencing diarrhea for the past 2 days. She looks slightly pale today, she thinks this could be due to not having eaten yet today. Reports doing okay on Verzenio. She has been having better glycemic control lately. We reviewed her labs, she has a slightly elevated Ca. She thinks she is taking Ca supplement. Her WBC count has declined a bit further, I would like her to hold Verzenio for a week. Her CT report from radiology is still pending, but we looked at the images. My impression is that the nodule could be infectious, but we will need to await official interpretation by radiology. Updated Visit, January 27, 2023: Prince Edward Isl is here by herself today and is doing well and feeling pretty good. Counts recovered. Patient held verzenio for 3 weeks. Kidney function is down will monitor. Updated Visit, January 07, 2023: Prince Edward Isl is here today accompanied by Roberta for follow up to review her recent labs and imaging. She has been doing fine lately, says she has been sitting on the couch a lot not doing much. I would recommend repeating the scans in a few weeks because the area of concern is too small to biopsy. She should wait on getting her vaccines until she hold her meds for a week to see if there is an improvement with her blood counts. Updated Visit, December 13, 2022: Kiah Cortes returns for follow-up. At her last visit the abemaciclib was resumed. She complains of fatigue and not having any motivation. She used to ronni and now is not even motivated to do that. Otherwise, she is tolerating treatment well. She also remains on Arimidex. She denies any areas of pain. She denies fevers, chills, night sweats or signs/symptoms of infection. No bleeding or abnormal bruising. Updated Visit, November 15, 2022: Rash mostly resolved. Still has some swelling in the side of the breast.rash resolved. Chaperoned Breast exam (Reuben Payne) - right breast with dependent edema left breast normal. Updated Visit, October 18, 2022: Prince Edward Isl returns today and her herpetic rash is still resolving. Pain has resolved but complaints of fullness and swelling in the right breast in the site of radiation. Chaperoned exam (Reuben Payne) right breast with mild lymphedema. Herpetic rash still resolving. Updated Visit, October 05, 2022: Prince Edward Isl returns for an urgent visit. She started her abemaciclib on 09/22/22 and on 09/30/2022 she noticed an itchy, painful rash to her right back/bra line area. It continued to spread around to her underarm area and on the back of her right arm. No fevers, chills. Updated Visit, September 20, 2022: Chaperoned Breast exam (Reuben Payne) right breast with lymphedema and some normal dimpling with healed scar in the axillary tail. Left breast is normal in texture. Bilateral axillary exam is negative. Doing well with Arimidex single agent now. Is willing to start on verzenio according to STEPHY. Feels her feet have swelling and mild neuropathy. Mild neuropathy also in hands when holding the steering wheel. Itching of her palms that sometimes resolves with lotion. Updated Visit, August 30, 2022: Just got back from visiting her son in [place] and saw her daughter from [place] and all of her grand kids. Had lots of bone aches with arimidex and so will restart single agent. After 3 weeks will start on verzenio. Updated Visit, July 23, 2022: Continues radiation for 10 more fractions. Otherwise doing well. Hands still troubling her with knitting. Otherwise doing well. Updated Visit, May 14, 2022: Still healing Chap ex (Reuben Padilla) - right breast - axillary scar with slight dehiscence - silver sulvidene in place. Radiation is unable to start yet. Updated Visit, April 02, 2022: Prince Edward Isl returns having had her resection last week and soaping machine back tender with drains in place. We will need to discuss adjuvant therapy in more depth as she had fairly significant persistent disease following resection in the resected specimen. I would presume that she fits along side the patient enrolled in the [place] E trial of abemaciclib + AI in such women that had neoadjuvant chemotherapy. We will discuss this more in depth when patient can spend time focusing on discussion and not feeling so uncomfortable. Abemaciclib plus ET demonstrated superior IDFS versus ET alone (P = .01; hazard ratio, 0.75; 95% CI, 0.60 to 0.93), with 2-year IDFS rates of 92.2% versus 88.7%, respectively. She had concern for diverticulitis on CT abdomen prior to surgery and will follow with GI for colonoscopy. Updated Visit, February 12, 2022: Kiah Cortes returns for follow-up and her final treatment with Taxotere and Cytoxan. She is tolerating treatment well. She has some sinus drainage and has been coughing this morning. She denies fevers, chills, night sweats and signs/symptoms of infection. No bleeding or abnormal bruising. Her biggest side effect from treatment is fatigue. Otherwise, no significant side effects. She wishes to proceed with treatment as planned. Updated Visit, February 05, 2022: Here with Virginia hands improved Port flush today made her feel dizzy She's more fatigued than expected Looks cristina BP is notably decreased Renal function has dropped acutely. Updated Visit, January 15, 2022: Kiah Cortes here for cycle 3 Taxotere and Cytoxan. Since her last visit she has noticed some peeling of both of her hands. She denies any redness or pain to her hands. She has been keeping her hands well lotion. She also had right heel pain that lasted 2 to 3 days and she described it like stepping on glass or needles. She has had some fatigue. She denies fevers, chills, night sweats and signs/symptoms of infection. No bleeding or abnormal bruising. Overall, she is doing well and wishes to proceed with treatment as planned. 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 Updated Visit, December 14, 2021: Prince Edward Isl returns for jagdish counts and follow up after starting neoadjuvant Taxotere and cyclophosphamide with GFS on 12/04/21. She does report having a headache for 2 days following treatment that was relieved with tylenol. Did have some constipation and hard stools. Had one episode of blood in stool on 12/11/21. None since. No nausea, vomiting or diarrhea. Appetite and taste is down but she is eating. Drinking is fine, but wine and coffee tastes bad. Some dry mouth but drinking at least 80-120cc of water everyday. No fevers, chills, cough, or shortness of breath. Updated Visit, December 04, 2021: Prince Edward Isl returns with [place] her daughter. Reviewed CT Abdomen / Pelvis. Bone scan was negative. Will proceed with treatment. Chaperoned exam notable for 3-4 cm right upper outer quadrant breast mass easily palpable. No palpable axillary LN's. Updated Visit, November 18 2021: Prince Edward Isl returns with her daughter [place] and has seen Dr. Mercedes and completed her MRI as well as CT Chest. Given the number of LN's involved, additional staging studies have been ordered to be completed including NM Bone scan and CT abdomen / Pelvis. Once these are completed and negative, we can proceed with planned neoadjuvant chemotherapy with up to 6 cycles of TC. Aside from being anxious, she is doing well. Initial Visit, October 21, 2021: Kiah Cortes presents today Hematology and Oncology evaluation. She is a 66 year old female who noted a mass on self breast exam in the right breast. 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 She's here with her daughter Virginia. She was referred for medical oncology opinion regarding breast cancer. Will need to complete staging and anticipate lisa-adjuvant chemotherapy give peterson disease. FHX cancer: Daughter Virginia - had cervical not ovarian Mother had lung cancer Another Daughter had lymphoma PATHOLOGY/MOLECULAR DATA: Breast, right, at 12:00, 7 cm from the nipple, ultrasound-guided core biopsy ([id number], part A; 10/02/2021): ---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 ---Please see comment. Lymph node, right axillary tail, ultrasound-guided core biopsy ([id number], part B; 10/02/2021): ---Metastatic mammary carcinoma with signet ring features, measuring at least 13 mm in greatest dimension, likely representing a lymph node completely replaced by carcinoma. ---Please see comment. Right breast invasive carcinoma: Right axillary tail metastasis: ER: POSITIVE (100%, strong) ER: POSITIVE (100%, strong) HI: POSITIVE (100%, strong) HI: POSITIVE (100%, strong) HER2 IHC: NEGATIVE (0) HER2 IHC: NEGATIVE (0) Controls react as expected Controls react as expected REVIEW OF SYSTEMS Per HPI and otherwise negative by full review of organ systems. ECOG PERFORMANCE STATUS: 0 PHYSICAL EXAMINATION: Vitals: BP 142/51 Pulse 77 Temp (Src) 97.5 (Temporal) Resp 16 Ht 5' 2.008 (1.58m) Wt 220 lb 3.8 oz (99.9kg) SpO2 95% BMI 40.27 kg/(m^2). Body surface area is 2.09 meters squared. Exam limited to gross visualization where appropriate. Gen.: This is an age-appropriate patient in no acute distress. Head: Appears atraumatic with no visible lesions. Eyes: Pupils equally round and reactive to light, extraocular muscles are intact. Neck: Supple. Respiratory: Appears to be respiring comfortably. Neurologic: Nonfocal to gross visualization. Alert and oriented 3. Psychiatric: No evidence of inappropriate anxiety or depression. Skin: Visible areas of skin without rash, lesions, wounds or petechiae. ALLERGIES: ALLERGIES Allergen Reactions Lisinopril Unknown Seasonal Allergies Itching, Other: See Comments MEDICATIONS: SYMBICORT 160-4.5 mcg/actuation inhaler^Inhale 2 Puffs as instructed two times a day.^Disp: ^Rfl: multivit-min/ferrous fumarate (MULTI VITAMIN ORAL)^Take by mouth once daily.^Disp: ^Rfl: multivit-min/iron/FA/vit K/lut (CENTRUM SILVER WOMEN ORAL)^Take by mouth once daily. Over 50^Disp: ^Rfl: anastrozole (ARIMIDEX) 1 mg tablet^Take 1 tablet by mouth once daily.^Disp: 90 tablet^Rfl: 1 ondansetron (ZOFRAN) 8 mg tablet^Take 1 tablet by mouth every 8 hours as needed for nausea/vomiting.^Disp: 90 tablet^Rfl: 1 prochlorperazine (COMPAZINE) 10 mg tablet^Take 1 tablet by mouth every 6 hours as needed.^Disp: 100 tablet^Rfl: 1 loperamide (ANTI-DIARRHEAL) 2 mg cap(s)^Take 1 capsule by mouth four times daily as needed for diarrhea.^Disp: 100 capsule^Rfl: 1 celecoxib (CELEBREX) 100 mg capsule^Take 100 mg by mouth twice daily.^Disp: ^Rfl: albuterol HFA (PROVENTIL HFA, VENTOLIN HFA) 90 mcg/actuation inhaler^INHALE 2 PUFFS 4 TIMES PER DAY NEEDED FOR SHORTNESS OF BREATH OR WHEEZING^Disp: ^Rfl: atorvastatin (LIPITOR) 40 mg tablet^Take 40 mg by mouth once daily.^Disp: ^Rfl: loratadine (CLARITIN) 10 mg tablet^Take 10 mg by mouth once daily.^Disp: ^Rfl: metFORMIN (GLUCOPHAGE) 1,000 mg tablet^Metformin Active 1000 MG PO Every morning May 04, 2021 3:24pm^Disp: ^Rfl: carvedilol (COREG) 25 mg tablet^Take 25 mg by mouth twice daily.^Disp: ^Rfl: acetaminophen (TYLENOL) 325 mg tablet^Take 650 mg by mouth every 6 hours as needed.^Disp: ^Rfl: amLODIPine (NORVASC) 10 mg tablet^Take 10 mg by mouth once daily.^Disp: ^Rfl: levothyroxine sodium (LEVOTHYROXINE ORAL)^Take 50 mcg by mouth once daily.^Disp: ^Rfl: rOPINIRole (REQUIP) 0.25 mg tablet^Take 0.25 mg by mouth daily at bedtime.^Disp: ^Rfl: abemaciclib (VERZENIO) 50 mg tablet^Take 1 tablet (50 mg) by mouth two times a day.^Disp: 60 tablet^Rfl: 1 LABORATORY VALUES: WBC (k/uL) Date Value 06/08/2023 2.47 (L) RBC (m/uL) Date Value 06/08/2023 3.23 (L) Hemoglobin (g/dL) Date Value 06/08/2023 11.0 (L) Hematocrit (%) Date Value 06/08/2023 32.8 (L) MCV (fL) Date Value 06/08/2023 101.5 (H) MCH (pg) Date Value 06/08/2023 34.1 (H) MCHC (g/dL) Date Value 06/08/2023 33.5 RDW-CV (%) Date Value 06/08/2023 16.1 (H) Platelet Count (k/uL) Date Value 06/08/2023 119 (L) MPV (fL) Date Value 06/08/2023 9.3 Glucose (mg/dL) Date Value 06/08/2023 160 (H) BUN (mg/dL) Date Value 06/08/2023 28 (H) Creatinine (mg/dL) Date Value 06/08/2023 1.47 (H) Sodium (mmol/L) Date Value 06/08/2023 142 Potassium (mmol/L) Date Value 06/08/2023 4.4 Chloride (mmol/L) Date Value 06/08/2023 108 (H) CO2 (mmol/L) Date Value 06/08/2023 22 Protein, Total (g/dL) Date Value 06/08/2023 6.7 Albumin (g/dL) Date Value 06/08/2023 4.2 Calcium, Total (mg/dL) Date Value 06/08/2023 10.6 (H) Alkaline Phosphatase (U/L) Date Value 06/08/2023 92 Bilirubin, Total (mg/dL) Date Value 06/08/2023 0.2 AST (U/L) Date Value 06/08/2023 16 ALT (U/L) Date Value 06/08/2023 15 DIAGNOSIS: (C50.911, C77.3) Breast cancer metastasized to axillary lymph node, right (HCC) (primary encounter diagnosis) Plan: abemaciclib (VERZENIO) 50 mg tablet, COMPLETE BLOOD COUNT AND DIFFERENTIAL, COMPREHENSIVE METABOLIC PANEL, COMPREHENSIVE METABOLIC PANEL, COMPLETE BLOOD COUNT AND DIFFERENTIAL, CA 15-3 BLD, CA 27.29 BLOOD (D70.2) Other drug-induced neutropenia (HCC) Plan: abemaciclib (VERZENIO) 50 mg tablet (N18.32) Stage 3b chronic kidney disease (HCC) PAST MEDICAL HISTORY Diagnosis Date Asthma Breast cancer (HCC) right breast DMII (diabetes mellitus, type 2) (HCC) 03/19/2022 Fibromyalgia HLD (hyperlipidemia) 03/19/2022 HTN (hypertension) Hypothyroidism 03/19/2022 Migraine Obesity Primary hypertension 03/19/2022 RLS (restless legs syndrome) 03/19/2022 PAST SURGICAL HISTORY Procedure Laterality Date APPENDECTOMY BREAST LUMPECTOMY HX Right 2022 BX OF BREAST; INCISIONAL Right COLONOSCOPY SCREENING LIGATE FALLOPIAN TUBE MASTECTOMY, PARTIAL Right 03/25/2022 PAST SURGICAL HISTORY OF Rt Shoulder PAST SURGICAL HISTORY OF Rt knee tendons PAST SURGICAL HISTORY OF Right shoulder tendons Social History Tobacco Use Smoking status: Never Passive exposure: Past Smokeless tobacco: Never Vaping Use Vaping Use: Never used Substance Use Topics Alcohol use: Not Currently Comment: 1 glass of wne a month Drug use: Never FAMILY HISTORY Problem Relation Age of Onset Cancer Mother lung Hypertension Mother Heart disease Father Hypertension Father Cancer Sister Cancer Brother brain Cervical Cancer Daughter Lymphoma Daughter I spent a total of 30 minutes on the date of service which included preparing to see the patient, completing clinical documentation, counseling and educating the patient/family/caregiver, ordering medications, tests, or procedures, and care coordination (not separately reported). Narendra Dao MD, CPE Hematology [facility] Oncology Services Provided at: [place], [place] Scribe Attestation: This note was scribed by Bijal Coronado on June 08, 2023 under the direction and supervision of Dr. Narendra Dao. I attest that all of the information documented is correct to the best of my knowledge. Provider Attestation: I, Narendra Dao MD, attest that all information documented by the above scribe is correct, and was supervised by me and under my direction. CC: Dr. Reece Mercedes documented in this encounter [facility] 06-08-2023 Note [facility] 06-08-2023 Instructions Bijal Coronado - 06/08/2023 4:13 PM EDT Labs and restart Verzenio 50mg BID in 3 weeks RTC in 7 weeks and repeat labs (4 weeks after using reduced dose of Verzenio) documented in this encounter [facility] 05-18-2023 Miscellaneous Notes Pt notified and verbalizes understanding. Miriam Nj RN Images from the original note were not included. Dipti Merritt, LEANNA.SECRETARIAL TEACHER You 40 minutes ago (2:41 PM) Agree with recommendation. Thanks Mariana. Pt calls w/ the following questions: Pt reports she started losing her hair 2 months ago. Noticeably more fatigued. Voices concerns that her hair has not grown back. Explained to pt the Verzenio and Arimidex have a low risk of alopecia, less than 15%. Pt has a h/o hypothyroidism. Takes levothyroxine as prescribed per her PCP. Per pt, she has been at her current dose for a couple years. Informed pt that she may need to have her thyroid levels checked. Advised she contact her PCP. Pt verbalizes understanding. Do you agree? 2. Pt c/o generalized bone pain. Same pain as reported at her visit on 05/02/23. Pain did improve while off of the Verzenio. Pt resumed the Verzenio just yesterday. Pt has Aleve at home that she can take if needed. Advised pt to take the Aleve and to report back if her bone pain persists or worsens. Pt verbalizes understanding. Do you agree? Miriam Sessler, RN documented in this encounter [facility] 05-17-2023 Instructions Narendra Dao MD - 05/17/2023 3:01 PM EDT Restart Verzenio for 4 more weeks at 100 mg BID RTC in 4 weeks and repeat labs. If she does not tolerate dose, will decrease to 50 mg BID. documented in this encounter [facility] 05-16-2023 History of Present illness Narrative Images from the original note were not included. NAME: Kiah Cortes CLINIC NO.: [id number] DATE OF SERVICE: May 16, 2023 (Maddy) Some elements in this clinic note that are critical to medical decision making have been carefully reviewed and included from a prior clinic note dated: May 02, 2023 (Maddy) Referring Provider: Dr. Shaikh West Additional Clinicians involved in Kiah Cortes's care: Dr. Shahana Mercedes VIRTUAL VISIT PROGRESS NOTE This is a virtual visit using [employer] Sidehand Video Call. It required patient-provider interaction for the medical decision making as documented below. I have communicated my name and active licensure. The patient's identity and physical location were verified at the time of this visit. Either the patient or their legal treasury representative has been informed of the risks and benefits of -- and alternatives to -- treatment through a remote evaluation and consents to proceed with the evaluation remotely. DIAGNOSIS: Right breast cancer ASSESSMENT: 68 year old woman with right breast lump diagnosed with Stage cIIA IDC ER/HI++, HER2(0) breast cancer cT2 cN1, cMx in need of consideration for neoadjuvant chemotherapy and resection following completion of chemotherapy. Patient started neoadjuvant Taxotere and cytoxan with GSF on 12/04/21. Tolerated well with minor side effects. Pulmonary nodule--0.3 cm RML nodule identified on CT chest was most likely related to her recovering URI. - repeat CT chest with findings most consistent with radiation changes but will need to keep monitoring in 3-6 months (April-June 2023) Thickened L adrenal gland on CTs--consider repeat imaging following treatment. Pre-op Cts with concern for diverticulitis. Will folow with GI. S/p R0 resection with persisting disease following neoadjuvant therapy. Given high risk disease (6 nodes +), plan was to treat in the adjuvant setting according to [place] [facility] trial of Abemaciclib + AI. Started September 22, 2022. Shingles Resolved PLAN: Restart Verzenio for 4 more weeks at 100 mg BID RTC in 4 weeks and repeat labs. If she does not tolerate dose, will decrease to 50 mg BID. HPI: CASE HISTORY: 05/02/2023 - CT Chest: Subpleural reticular and groundglass opacities in the anterior right upper lobe, likely on the basis of evolving postradiation fibrosis. No evidence of bulky intrathoracic lymphadenopathy. Stable posttreatment changes in the right breast. 03/21/2023 - Decrease Verzenio to 100mg BID 02/24/2023 - Held abemaciclib 1 week in order to allow bone marrow recovery still hasn't recovered. Will hold longer. May need to change dosing. 02/17/2023 - CT Chest: Increasing regions of groundglass opacification within the right upper lobe, encompassing the previously noted right upper lobe nodular opacity. Findings are favored to be secondary to evolving postradiation fibrosis, or new infection/inflammation. Continued attention on surveillance imaging is suggested. Stable nodular thickening of the left adrenal, likely secondary to hyperplasia. 01/03/2023 - CT CAP: New semisolid nodule and subcentimeter solid nodule in the right upper lobe of the lungs with a new small right pleural effusion. Resection of patient's previously seen right axillary lymph nodes and compared to the prior study. There is no suspicious axillary, mediastinal, or hilar lymphadenopathy. There is intraluminal with skin thickening of the right breast. No evidence of metastatic disease in the abdomen or pelvis. There is stable nodular thickening of the left adrenal gland. Given the stability, this is likely due to adenomatous hyperplasia. 11/15/2022 - Resumed Abemaciclib 10/07/2022 - Mammogram negative. 09/30/2022 - held abemaciclib due to rash - herpetic rash. 09/22/2022 - started Abemaciclib with anastrozole 08/02/2022 - finished RT. 05/24/2022 - Colonoscopy - sigmoid diverticulosis, otherwise normal 03/25/2022 - Rt Breast Lumpectomy and AxLND - residual IDC with signet ring features and treatment effect. IDC grade 2, 22 mm, margins negative, ypT2,pN2a, ER+HI+, HER2 neg (0), right axilly content - 08/09 nodes involved with macro-metastatic disease. VANI in at least one LN. 02/26/2022 - CT CAP : right axillary LN, subtle subpleural RML nodular opacity and subtle groundglass opacities. Sigmoid colon thickening. 12/04/2021-02/12/2022 - 4 cycles Taxotere + Cytoxan neoadjuvant. 11/27/2021 - Bone scan: No suspicious foci of activity. No scintigraphic evidence of osseous metastases. Likely degenerative/arthritic changes as described. 11/20/2021 - CT abdomen and pelvis: Nonspecific nodular thickening of the left adrenal gland. Consider interval follow-up. Otherwise no evidence of intra-abdominal/intrapelvic metastases. Subcentimeter left hepatic cyst. Sigmoid colon diverticulosis without evidence of diverticulitis. Nonspecific haziness of the mesenteric fat may represent edema or infectious/inflammatory etiologies. 11/10/2021 - MRI Breasts: - Birads 6 - rt breast - 7cmfn @ 10:00 3.6x3.1x2.5, 3-[address], lft breast Birads2 10/30/2021 - CT chest: Multiple enlarged right axillary lymph nodes, highly suspicious for neoplastic involvement. A 0.3 cm right middle lobe pulmonary nodule is nonspecific. Continued attention on subsequent studies is suggested. 10/02/2021 - US & Diag mammography - Right breast 12 O'Clock, 7 cm from nipple - 2.9 x 2.5 cm mass - x IDC +Axillary LN. G1, ER/HI 90/80% HER2 (I[facility]) = 0 09/30/2021 - right breast ultrasound: 2.9 x 2.5 x 2.3 cm mass 8 cm from the nipple at the 9 and 10 o'clock position of the right breast suspicious for malignancy. Suspicious lymph nodes in the right axilla noted. 08/2021 - noted right breast mass on self exam. Updated Visit, May 16, 2023: Virtual Visit Doing better after holding Verzenio for last 2 weeks. Would like to resume. Updated Visit, May 02, 2023: Prince Edward Isl returns today for a follow up. She has been feeling down lately, but does not think she is depressed. She may find help with antidepressants. She notes pain in every bone in her body. Hold Verzenio for 2 weeks for recovery. If no improvement, will hold Arimidex. She wakes up more congested and SOB every morning despite using nasal spray and inhaler. Updated Visit, April 11, 2023: Prince Edward Isl returns for follow up. No verzenio 100 mg bid and anastrozole. She is doing well overall. Has had some mild diarrhea episodes, but easily resolved. Denies any nausea or vomiting. She has chronic underlying shortness of breath which is unchanged. Denies cough. She is tolerating treatment well. Currently on anastrozole 1mg daily and verzenio 100 mg bid. Today with grade I thrombocytopenia and leukopenia. Would recommend continuing current doses unless counts become greater than or equal to grade 3 per Lexicomp and the package insert. Updated Visit, March 21, 2023: Prince Edward Isl returns today. WBC and platelets are back up. She does not feel as tired anymore. She has lost her hair. She reports her field of vision intermittently looks like a kaleidescope, will follow up with eye doctor. She says she wants to donate her body to science when she passes away. Updated Visit, February 24, 2023: Virtual Visit Prince Edward Isl is doing well and feels good but review of her labs show persistent cyctopenias. Will hold verzenio longer. Discussed potential plans to decrease dose. Updated Visit, February 17, 2023: Prince Edward Isl returns for follow up today. She reports being tired lately and experiencing indigestion. She endorses experiencing a mild cough and some congestion. Has also been experiencing diarrhea for the past 2 days. She looks slightly pale today, she thinks this could be due to not having eaten yet today. Reports doing okay on Verzenio. She has been having better glycemic control lately. We reviewed her labs, she has a slightly elevated Ca. She thinks she is taking Ca supplement. Her WBC count has declined a bit further, I would like her to hold Verzenio for a week. Her CT report from radiology is still pending, but we looked at the images. My impression is that the nodule could be infectious, but we will need to await official interpretation by radiology. Updated Visit, January 27, 2023: Prince Edward Isl is here by herself today and is doing well and feeling pretty good. Counts recovered. Patient held verzenio for 3 weeks. Kidney function is down will monitor. Updated Visit, January 07, 2023: Prince Edward Isl is here today accompanied by Roberta for follow up to review her recent labs and imaging. She has been doing fine lately, says she has been sitting on the couch a lot not doing much. I would recommend repeating the scans in a few weeks because the area of concern is too small to biopsy. She should wait on getting her vaccines until she hold her meds for a week to see if there is an improvement with her blood counts. Updated Visit, December 13, 2022: Kiah Cortes returns for follow-up. At her last visit the abemaciclib was resumed. She complains of fatigue and not having any motivation. She used to ronni and now is not even motivated to do that. Otherwise, she is tolerating treatment well. She also remains on Arimidex. She denies any areas of pain. She denies fevers, chills, night sweats or signs/symptoms of infection. No bleeding or abnormal bruising. Updated Visit, November 15, 2022: Rash mostly resolved. Still has some swelling in the side of the breast.rash resolved. Chaperoned Breast exam (Reuben Payne) - right breast with dependent edema left breast normal. Updated Visit, October 18, 2022: Prince Edward Isl returns today and her herpetic rash is still resolving. Pain has resolved but complaints of fullness and swelling in the right breast in the site of radiation. Chaperoned exam (Reuben Payne) right breast with mild lymphedema. Herpetic rash still resolving. Updated Visit, October 05, 2022: Prince Edward Isl returns for an urgent visit. She started her abemaciclib on 09/22/22 and on 09/30/2022 she noticed an itchy, painful rash to her right back/bra line area. It continued to spread around to her underarm area and on the back of her right arm. No fevers, chills. Updated Visit, September 20, 2022: Chaperoned Breast exam (Reuben Payne) right breast with lymphedema and some normal dimpling with healed scar in the axillary tail. Left breast is normal in texture. Bilateral axillary exam is negative. Doing well with Arimidex single agent now. Is willing to start on verzenio according to [facility]. Feels her feet have swelling and mild neuropathy. Mild neuropathy also in hands when holding the steering wheel. Itching of her palms that sometimes resolves with lotion. Updated Visit, August 30, 2022: Just got back from visiting her son in [place] and saw her daughter from [place] and all of her grand kids. Had lots of bone aches with arimidex and so will restart single agent. After 3 weeks will start on verzenio. Updated Visit, July 23, 2022: Continues radiation for 10 more fractions. Otherwise doing well. Hands still troubling her with knitting. Otherwise doing well. Updated Visit, May 14, 2022: Still healing Chap ex (Reuben Padilla) - right breast - axillary scar with slight dehiscence - silver sulvidene in place. Radiation is unable to start yet. Updated Visit, April 02, 2022: Prince Edward Isl returns having had her resection last week and soaping machine back tender with drains in place. We will need to discuss adjuvant therapy in more depth as she had fairly significant persistent disease following resection in the resected specimen. I would presume that she fits along side the patient enrolled in the [place] E trial of abemaciclib + AI in such women that had neoadjuvant chemotherapy. We will discuss this more in depth when patient can spend time focusing on discussion and not feeling so uncomfortable. Abemaciclib plus ET demonstrated superior IDFS versus ET alone (P = .01; hazard ratio, 0.75; 95% CI, 0.60 to 0.93), with 2-year IDFS rates of 92.2% versus 88.7%, respectively. She had concern for diverticulitis on CT abdomen prior to surgery and will follow with GI for colonoscopy. Updated Visit, February 12, 2022: Kiah Cortes returns for follow-up and her final treatment with Taxotere and Cytoxan. She is tolerating treatment well. She has some sinus drainage and has been coughing this morning. She denies fevers, chills, night sweats and signs/symptoms of infection. No bleeding or abnormal bruising. Her biggest side effect from treatment is fatigue. Otherwise, no significant side effects. She wishes to proceed with treatment as planned. Updated Visit, February 05, 2022: Here with [place] hands improved Port flush today made her feel dizzy She's more fatigued than expected Looks cristina BP is notably decreased Renal function has dropped acutely. Updated Visit, January 15, 2022: Kiah Cortes here for cycle 3 Taxotere and Cytoxan. Since her last visit she has noticed some peeling of both of her hands. She denies any redness or pain to her hands. She has been keeping her hands well lotion. She also had right heel pain that lasted 2 to 3 days and she described it like stepping on glass or needles. She has had some fatigue. She denies fevers, chills, night sweats and signs/symptoms of infection. No bleeding or abnormal bruising. Overall, she is doing well and wishes to proceed with treatment as planned. 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 Updated Visit, December 14, 2021: Prince Edward Isl returns for jagdish counts and follow up after starting neoadjuvant Taxotere and cyclophosphamide with GFS on 12/04/21. She does report having a headache for 2 days following treatment that was relieved with tylenol. Did have some constipation and hard stools. Had one episode of blood in stool on 12/11/21. None since. No nausea, vomiting or diarrhea. Appetite and taste is down but she is eating. Drinking is fine, but wine and coffee tastes bad. Some dry mouth but drinking at least 80-120cc of water everyday. No fevers, chills, cough, or shortness of breath. Updated Visit, December 04, 2021: Prince Edward Isl returns with [place] her daughter. Reviewed CT Abdomen / Pelvis. Bone scan was negative. Will proceed with treatment. Chaperoned exam notable for 3-4 cm right upper outer quadrant breast mass easily palpable. No palpable axillary LN's. Updated Visit, November 18 2021: Prince Edward Isl returns with her daughter [place] and has seen Dr. Mercedes and completed her MRI as well as CT Chest. Given the number of LN's involved, additional staging studies have been ordered to be completed including NM Bone scan and CT abdomen / Pelvis. Once these are completed and negative, we can proceed with planned neoadjuvant chemotherapy with up to 6 cycles of TC. Aside from being anxious, she is doing well. Initial Visit, October 21, 2021: Kiah Cortes presents today Hematology and Oncology evaluation. She is a 66 year old female who noted a mass on self breast exam in the right breast. 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 She's here with her daughter [place]. She was referred for medical oncology opinion regarding breast cancer. Will need to complete staging and anticipate lisa-adjuvant chemotherapy give peterson disease. FHX cancer: Daughter [place] - had cervical not ovarian Mother had lung cancer Another Daughter had lymphoma PATHOLOGY/MOLECULAR DATA: Breast, right, at 12:00, 7 cm from the nipple, ultrasound-guided core biopsy ([id number], part A; 10/02/2021): ---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 ---Please see comment. Lymph node, right axillary tail, ultrasound-guided core biopsy ([id number], part B; 10/02/2021): ---Metastatic mammary carcinoma with signet ring features, measuring at least 13 mm in greatest dimension, likely representing a lymph node completely replaced by carcinoma. ---Please see comment. Right breast invasive carcinoma: Right axillary tail metastasis: ER: POSITIVE (100%, strong) ER: POSITIVE (100%, strong) HI: POSITIVE (100%, strong) HI: POSITIVE (100%, strong) HER2 IHC: NEGATIVE (0) HER2 IHC: NEGATIVE (0) Controls react as expected Controls react as expected REVIEW OF SYSTEMS Per HPI and otherwise negative by full review of organ systems. ECOG PERFORMANCE STATUS: 0 PHYSICAL EXAMINATION: Vitals: There were no vitals taken for this visit. There is no height or weight on file to calculate BSA. Exam not done ALLERGIES: ALLERGIES Allergen Reactions Lisinopril Unknown Seasonal Allergies Itching, Other: See Comments MEDICATIONS: abemaciclib (VERZENIO) 100 mg tablet^Take 1 tablet (100 mg) by mouth two times a day.^Disp: 60 tablet^Rfl: 3 anastrozole (ARIMIDEX) 1 mg tablet^Take 1 tablet by mouth once daily.^Disp: 90 tablet^Rfl: 1 ondansetron (ZOFRAN) 8 mg tablet^Take 1 tablet by mouth every 8 hours as needed for nausea/vomiting.^Disp: 90 tablet^Rfl: 1 prochlorperazine (COMPAZINE) 10 mg tablet^Take 1 tablet by mouth every 6 hours as needed.^Disp: 100 tablet^Rfl: 1 loperamide (ANTI-DIARRHEAL) 2 mg cap(s)^Take 1 capsule by mouth four times daily as needed for diarrhea.^Disp: 100 capsule^Rfl: 1 celecoxib (CELEBREX) 100 mg capsule^Take 100 mg by mouth twice daily.^Disp: ^Rfl: albuterol HFA (PROVENTIL HFA, VENTOLIN HFA) 90 mcg/actuation inhaler^INHALE 2 PUFFS 4 TIMES PER DAY NEEDED FOR SHORTNESS OF BREATH OR WHEEZING^Disp: ^Rfl: atorvastatin (LIPITOR) 40 mg tablet^Take 40 mg by mouth once daily.^Disp: ^Rfl: loratadine (CLARITIN) 10 mg tablet^Take 10 mg by mouth once daily.^Disp: ^Rfl: metFORMIN (GLUCOPHAGE) 1,000 mg tablet^Metformin Active 1000 MG PO Every morning May 04, 2021 3:24pm^Disp: ^Rfl: carvedilol (COREG) 25 mg tablet^Take 25 mg by mouth twice daily.^Disp: ^Rfl: acetaminophen (TYLENOL) 325 mg tablet^Take 650 mg by mouth every 6 hours as needed.^Disp: ^Rfl: amLODIPine (NORVASC) 10 mg tablet^Take 10 mg by mouth once daily.^Disp: ^Rfl: levothyroxine sodium (LEVOTHYROXINE ORAL)^Take 50 mcg by mouth once daily.^Disp: ^Rfl: rOPINIRole (REQUIP) 0.25 mg tablet^Take 0.25 mg by mouth daily at bedtime.^Disp: ^Rfl: LABORATORY VALUES: WBC (k/uL) Date Value 05/02/2023 2.59 (L) RBC (m/uL) Date Value 05/02/2023 3.29 (L) Hemoglobin (g/dL) Date Value 05/02/2023 11.0 (L) Hematocrit (%) Date Value 05/02/2023 33.0 (L) MCV (fL) Date Value 05/02/2023 100.3 (H) MCH (pg) Date Value 05/02/2023 33.4 MCHC (g/dL) Date Value 05/02/2023 33.3 RDW-CV (%) Date Value 05/02/2023 14.6 Platelet Count (k/uL) Date Value 05/02/2023 150 MPV (fL) Date Value 05/02/2023 9.2 Glucose (mg/dL) Date Value 05/02/2023 84 BUN (mg/dL) Date Value 05/02/2023 26 (H) Creatinine (mg/dL) Date Value 05/02/2023 1.18 (H) Sodium (mmol/L) Date Value 05/02/2023 139 Potassium (mmol/L) Date Value 05/02/2023 4.3 Chloride (mmol/L) Date Value 05/02/2023 105 CO2 (mmol/L) Date Value 05/02/2023 24 Protein, Total (g/dL) Date Value 05/02/2023 6.9 Albumin (g/dL) Date Value 05/02/2023 4.3 Calcium, Total (mg/dL) Date Value 05/02/2023 10.7 (H) Alkaline Phosphatase (U/L) Date Value 05/02/2023 74 Bilirubin, Total (mg/dL) Date Value 05/02/2023 0.2 AST (U/L) Date Value 05/02/2023 14 ALT (U/L) Date Value 05/02/2023 12 DIAGNOSIS: (C50.411, Z17.0) Malignant neoplasm of upper-outer quadrant of right breast in female, estrogen receptor positive (HCC) (primary encounter diagnosis) (C50.911, C77.3) Breast cancer metastasized to axillary lymph node, right (HCC) (N18.30) Stage 3 chronic kidney disease, unspecified whether stage 3a or 3b CKD (HCC) PAST MEDICAL HISTORY Diagnosis Date Asthma Breast cancer (HCC) right breast DMII (diabetes mellitus, type 2) (HCC) 03/19/2022 Fibromyalgia HLD (hyperlipidemia) 03/19/2022 HTN (hypertension) Hypothyroidism 03/19/2022 Migraine Obesity Primary hypertension 03/19/2022 RLS (restless legs syndrome) 03/19/2022 PAST SURGICAL HISTORY Procedure Laterality Date APPENDECTOMY BREAST LUMPECTOMY HX Right 2022 BX OF BREAST; INCISIONAL Right COLONOSCOPY SCREENING LIGATE FALLOPIAN TUBE MASTECTOMY, PARTIAL Right 03/25/2022 PAST SURGICAL HISTORY OF Rt Shoulder PAST SURGICAL HISTORY OF Rt knee tendons PAST SURGICAL HISTORY OF Right shoulder tendons Social History Tobacco Use Smoking status: Never Passive exposure: Past Smokeless tobacco: Never Vaping Use Vaping Use: Never used Substance Use Topics Alcohol use: Not Currently Comment: 1 glass of wne a month Drug use: Never FAMILY HISTORY Problem Relation Age of Onset Cancer Mother lung Hypertension Mother Heart disease Father Hypertension Father Cancer Sister Cancer Brother brain Cervical Cancer Daughter Lymphoma Daughter I spent a total of 20 minutes on the date of service which included preparing to see the patient, completing clinical documentation, counseling and educating the patient/family/caregiver, ordering medications, tests, or procedures, and care coordination (not separately reported). Narendra Dao MD, CPE Hematology and Oncology Services Provided at: [place], [place] CC: Dr. Reece Mercedes documented in this encounter [facility] 05-16-2023 Note [facility] 05-04-2023 Miscellaneous Notes Pt notified of results and verbalizes understanding. Miriam Nj, HENRRY Agree - glad that's the case! Mary: CT results are final. Appear to be stable. No new areas of concern. Do you agree? Miriam Nj RN Images from the original note were not included. Mariana: This is your patient, please see Mary's result recommendations. Thanks! Marimar Lee documented in this encounter [facility] 05-04-2023 Miscellaneous Notes Pt notified and verbalizes understanding. Miriam Nj RN That'll be fine Pt's PCP would like to prescribe her a steroid for her allergies and SOB. Any objections w/ her current treatment plan? Miriam Nj RN documented in this encounter [facility] 05-02-2023 History of Present illness Narrative Images from the original note were not included. NAME: Kiah Cortes CLINIC NO.: [id number] DATE OF SERVICE: May 02, 2023 (Maddy) Some elements in this clinic note that are critical to medical decision making have been carefully reviewed and included from a prior clinic note dated: April 11, 2023 ([place]). Referring Provider: Dr. Shaikh West Additional Clinicians involved in Kiah Cortes's care: Dr. Shahana Mercedes DIAGNOSIS: Right breast cancer ASSESSMENT: 68 year old woman with right breast lump diagnosed with Stage cIIA IDC ER/HI++, HER2(0) breast cancer cT2 cN1, cMx in need of consideration for neoadjuvant chemotherapy and resection following completion of chemotherapy. Patient started neoadjuvant Taxotere and cytoxan with GSF on 12/04/21. Tolerated well with minor side effects. Pulmonary nodule--0.3 cm RML nodule identified on CT chest was most likely related to her recovering URI. - repeat CT chest with findings most consistent with radiation changes but will need to keep monitoring in 3-6 months (April-June 2023) Thickened L adrenal gland on CTs--consider repeat imaging following treatment. Pre-op Cts with concern for diverticulitis. Will folow with GI. S/p R0 resection with persisting disease following neoadjuvant therapy. Given high risk disease (6 nodes +), plan was to treat in the adjuvant setting according to [place] [facility] trial of Abemaciclib + AI. Started September 22, 2022. Siddharth Duran PLAN: Triage call results of CT from today Hold Verzenio for 2 weeks Virtual visit in 2 weeks to determine continuation of Verzenio If no improvement, will hold Arimidex HPI: CASE HISTORY: 05/02/2023 - CT Chest: In process 03/21/2023 - Decrease Verzenio to 100mg BID 02/24/2023 - Held abemaciclib 1 week in order to allow bone marrow recovery still hasn't recovered. Will hold longer. May need to change dosing. 02/17/2023 - CT Chest: Increasing regions of groundglass opacification within the right upper lobe, encompassing the previously noted right upper lobe nodular opacity. Findings are favored to be secondary to evolving postradiation fibrosis, or new infection/inflammation. Continued attention on surveillance imaging is suggested. Stable nodular thickening of the left adrenal, likely secondary to hyperplasia. 01/03/2023 - CT CAP: New semisolid nodule and subcentimeter solid nodule in the right upper lobe of the lungs with a new small right pleural effusion. Resection of patient's previously seen right axillary lymph nodes and compared to the prior study. There is no suspicious axillary, mediastinal, or hilar lymphadenopathy. There is intraluminal with skin thickening of the right breast. No evidence of metastatic disease in the abdomen or pelvis. There is stable nodular thickening of the left adrenal gland. Given the stability, this is likely due to adenomatous hyperplasia. 11/15/2022 - Resumed Abemaciclib 10/07/2022 - Mammogram negative. 09/30/2022 - held abemaciclib due to rash - herpetic rash. 09/22/2022 - started Abemaciclib with anastrozole 08/02/2022 - finished RT. 05/24/2022 - Colonoscopy - sigmoid diverticulosis, otherwise normal 03/25/2022 - Rt Breast Lumpectomy and AxLND - residual IDC with signet ring features and treatment effect. IDC grade 2, 22 mm, margins negative, ypT2,pN2a, ER+HI+, HER2 neg (0), right axilly content - 08/09 nodes involved with macro-metastatic disease. VANI in at least one LN. 02/26/2022 - CT CAP : right axillary LN, subtle subpleural RML nodular opacity and subtle groundglass opacities. Sigmoid colon thickening. 12/04/2021-02/12/2022 - 4 cycles Taxotere + Cytoxan neoadjuvant. 11/27/2021 - Bone scan: No suspicious foci of activity. No scintigraphic evidence of osseous metastases. Likely degenerative/arthritic changes as described. 11/20/2021 - CT abdomen and pelvis: Nonspecific nodular thickening of the left adrenal gland. Consider interval follow-up. Otherwise no evidence of intra-abdominal/intrapelvic metastases. Subcentimeter left hepatic cyst. Sigmoid colon diverticulosis without evidence of diverticulitis. Nonspecific haziness of the mesenteric fat may represent edema or infectious/inflammatory etiologies. 11/10/2021 - MRI Breasts: - Birads 6 - rt breast - 7cmfn @ 10:00 3.6x3.1x2.5, 3-[address], lft breast Birads2 10/30/2021 - CT chest: Multiple enlarged right axillary lymph nodes, highly suspicious for neoplastic involvement. A 0.3 cm right middle lobe pulmonary nodule is nonspecific. Continued attention on subsequent studies is suggested. 10/02/2021 - US & Diag mammography - Right breast 12 O'Clock, 7 cm from nipple - 2.9 x 2.5 cm mass - x IDC +Axillary LN. G1, ER/HI 90/80% HER2 ([facility]) = 0 09/30/2021 - right breast ultrasound: 2.9 x 2.5 x 2.3 cm mass 8 cm from the nipple at the 9 and 10 o'clock position of the right breast suspicious for malignancy. Suspicious lymph nodes in the right axilla noted. 08/2021 - noted right breast mass on self exam. Updated Visit, May 02, 2023: Prince Edward Isl returns today for a follow up. She has been feeling down lately, but does not think she is depressed. She may find help with antidepressants. She notes pain in every bone in her body. Hold Verzenio for 2 weeks for recovery. If no improvement, will hold Arimidex. She wakes up more congested and SOB every morning despite using nasal spray and inhaler. Updated Visit, April 11, 2023: Prince Edward Isl returns for follow up. No verzenio 100 mg bid and anastrozole. She is doing well overall. Has had some mild diarrhea episodes, but easily resolved. Denies any nausea or vomiting. She has chronic underlying shortness of breath which is unchanged. Denies cough. She is tolerating treatment well. Currently on anastrozole 1mg daily and verzenio 100 mg bid. Today with grade I thrombocytopenia and leukopenia. Would recommend continuing current doses unless counts become greater than or equal to grade 3 per Lexicomp and the package insert. Updated Visit, March 21, 2023: Prince Edward Isl returns today. WBC and platelets are back up. She does not feel as tired anymore. She has lost her hair. She reports her field of vision intermittently looks like a kaleidescope, will follow up with eye doctor. She says she wants to donate her body to science when she passes away. Updated Visit, February 24, 2023: Virtual Visit Prince Edward Isl is doing well and feels good but review of her labs show persistent cyctopenias. Will hold verzenio longer. Discussed potential plans to decrease dose. Updated Visit, February 17, 2023: Prince Edward Isl returns for follow up today. She reports being tired lately and experiencing indigestion. She endorses experiencing a mild cough and some congestion. Has also been experiencing diarrhea for the past 2 days. She looks slightly pale today, she thinks this could be due to not having eaten yet today. Reports doing okay on Verzenio. She has been having better glycemic control lately. We reviewed her labs, she has a slightly elevated Ca. She thinks she is taking Ca supplement. Her WBC count has declined a bit further, I would like her to hold Verzenio for a week. Her CT report from radiology is still pending, but we looked at the images. My impression is that the nodule could be infectious, but we will need to await official interpretation by radiology. Updated Visit, January 27, 2023: Prince Edward Isl is here by herself today and is doing well and feeling pretty good. Counts recovered. Patient held verzenio for 3 weeks. Kidney function is down will monitor. Updated Visit, January 07, 2023: Prince Edward Isl is here today accompanied by Roberta for follow up to review her recent labs and imaging. She has been doing fine lately, says she has been sitting on the couch a lot not doing much. I would recommend repeating the scans in a few weeks because the area of concern is too small to biopsy. She should wait on getting her vaccines until she hold her meds for a week to see if there is an improvement with her blood counts. Updated Visit, December 13, 2022: Kiah Cortes returns for follow-up. At her last visit the abemaciclib was resumed. She complains of fatigue and not having any motivation. She used to ronni and now is not even motivated to do that. Otherwise, she is tolerating treatment well. She also remains on Arimidex. She denies any areas of pain. She denies fevers, chills, night sweats or signs/symptoms of infection. No bleeding or abnormal bruising. Updated Visit, November 15, 2022: Rash mostly resolved. Still has some swelling in the side of the breast.rash resolved. Chaperoned Breast exam (Reuben Payne) - right breast with dependent edema left breast normal. Updated Visit, October 18, 2022: Prince Edward Isl returns today and her herpetic rash is still resolving. Pain has resolved but complaints of fullness and swelling in the right breast in the site of radiation. Chaperoned exam (Reuben Payne) right breast with mild lymphedema. Herpetic rash still resolving. Updated Visit, October 05, 2022: Prince Edward Isl returns for an urgent visit. She started her abemaciclib on 09/22/22 and on 09/30/2022 she noticed an itchy, painful rash to her right back/bra line area. It continued to spread around to her underarm area and on the back of her right arm. No fevers, chills. Updated Visit, September 20, 2022: Chaperoned Breast exam (Reuben Payne) right breast with lymphedema and some normal dimpling with healed scar in the axillary tail. Left breast is normal in texture. Bilateral axillary exam is negative. Doing well with Arimidex single agent now. Is willing to start on verzenio according to [facility]. Feels her feet have swelling and mild neuropathy. Mild neuropathy also in hands when holding the steering wheel. Itching of her palms that sometimes resolves with lotion. Updated Visit, August 30, 2022: Just got back from visiting her son in [place] and saw her daughter from [place] and all of her grand kids. Had lots of bone aches with arimidex and so will restart single agent. After 3 weeks will start on verzenio. Updated Visit, July 23, 2022: Continues radiation for 10 more fractions. Otherwise doing well. Hands still troubling her with knitting. Otherwise doing well. Updated Visit, May 14, 2022: Still healing Chap ex (Reuben Padilla) - right breast - axillary scar with slight dehiscence - silver sulvidene in place. Radiation is unable to start yet. Updated Visit, April 02, 2022: Prince Edward Isl returns having had her resection last week and soaping machine back tender with drains in place. We will need to discuss adjuvant therapy in more depth as she had fairly significant persistent disease following resection in the resected specimen. I would presume that she fits along side the patient enrolled in the [place] E trial of abemaciclib + AI in such women that had neoadjuvant chemotherapy. We will discuss this more in depth when patient can spend time focusing on discussion and not feeling so uncomfortable. Abemaciclib plus ET demonstrated superior IDFS versus ET alone (P = .01; hazard ratio, 0.75; 95% CI, 0.60 to 0.93), with 2-year IDFS rates of 92.2% versus 88.7%, respectively. She had concern for diverticulitis on CT abdomen prior to surgery and will follow with GI for colonoscopy. Updated Visit, February 12, 2022: Kiah Cortes returns for follow-up and her final treatment with Taxotere and Cytoxan. She is tolerating treatment well. She has some sinus drainage and has been coughing this morning. She denies fevers, chills, night sweats and signs/symptoms of infection. No bleeding or abnormal bruising. Her biggest side effect from treatment is fatigue. Otherwise, no significant side effects. She wishes to proceed with treatment as planned. Updated Visit, February 05, 2022: Here with Virginia hands improved Port flush today made her feel dizzy She's more fatigued than expected Looks cristina BP is notably decreased Renal function has dropped acutely. Updated Visit, January 15, 2022: Kiah Cortes here for cycle 3 Taxotere and Cytoxan. Since her last visit she has noticed some peeling of both of her hands. She denies any redness or pain to her hands. She has been keeping her hands well lotion. She also had right heel pain that lasted 2 to 3 days and she described it like stepping on glass or needles. She has had some fatigue. She denies fevers, chills, night sweats and signs/symptoms of infection. No bleeding or abnormal bruising. Overall, she is doing well and wishes to proceed with treatment as planned. 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 Updated Visit, December 14, 2021: Prince Edward Isl returns for jagdish counts and follow up after starting neoadjuvant Taxotere and cyclophosphamide with GFS on 12/04/21. She does report having a headache for 2 days following treatment that was relieved with tylenol. Did have some constipation and hard stools. Had one episode of blood in stool on 12/11/21. None since. No nausea, vomiting or diarrhea. Appetite and taste is down but she is eating. Drinking is fine, but wine and coffee tastes bad. Some dry mouth but drinking at least 80-120cc of water everyday. No fevers, chills, cough, or shortness of breath. Updated Visit, December 04, 2021: Prince Edward Isl returns with [place] her daughter. Reviewed CT Abdomen / Pelvis. Bone scan was negative. Will proceed with treatment. Chaperoned exam notable for 3-4 cm right upper outer quadrant breast mass easily palpable. No palpable axillary LN's. Updated Visit, November 18 2021: Prince Edward Isl returns with her daughter [place] and has seen Dr. Mercedes and completed her MRI as well as CT Chest. Given the number of LN's involved, additional staging studies have been ordered to be completed including NM Bone scan and CT abdomen / Pelvis. Once these are completed and negative, we can proceed with planned neoadjuvant chemotherapy with up to 6 cycles of TC. Aside from being anxious, she is doing well. Initial Visit, October 21, 2021: Kiah Cortes presents today Hematology and Oncology evaluation. She is a 66 year old female who noted a mass on self breast exam in the right breast. 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 She's here with her daughter [place]. She was referred for medical oncology opinion regarding breast cancer. Will need to complete staging and anticipate lisa-adjuvant chemotherapy give peterson disease. FHX cancer: Daughter [place] - had cervical not ovarian Mother had lung cancer Another Daughter had lymphoma PATHOLOGY/MOLECULAR DATA: Breast, right, at 12:00, 7 cm from the nipple, ultrasound-guided core biopsy ([id number], part A; 10/02/2021): ---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 ---Please see comment. Lymph node, right axillary tail, ultrasound-guided core biopsy ([id number], part B; 10/02/2021): ---Metastatic mammary carcinoma with signet ring features, measuring at least 13 mm in greatest dimension, likely representing a lymph node completely replaced by carcinoma. ---Please see comment. Right breast invasive carcinoma: Right axillary tail metastasis: ER: POSITIVE (100%, strong) ER: POSITIVE (100%, strong) HI: POSITIVE (100%, strong) HI: POSITIVE (100%, strong) HER2 IHC: NEGATIVE (0) HER2 IHC: NEGATIVE (0) Controls react as expected Controls react as expected REVIEW OF SYSTEMS Per HPI and otherwise negative by full review of organ systems. ECOG PERFORMANCE STATUS: 0 PHYSICAL EXAMINATION: Vitals: BP 125/57 Pulse 67 Temp (Src) 97.9 (Temporal) Resp 18 Ht 5' 2.008 (1.58m) Wt 215 lb 13.3 oz (97.9kg) SpO2 99% BMI 39.47 kg/(m^2). Body surface area is 2.07 meters squared. Exam limited to gross visualization where appropriate. Gen.: This is an age-appropriate patient in no acute distress. Head: Appears atraumatic with no visible lesions. Eyes: Pupils equally round and reactive to light, extraocular muscles are intact. Neck: Supple. Respiratory: Appears to be respiring comfortably. Neurologic: Nonfocal to gross visualization. Alert and oriented 3. Psychiatric: No evidence of inappropriate anxiety or depression. Skin: Visible areas of skin without rash, lesions, wounds or petechiae. ALLERGIES: ALLERGIES Allergen Reactions Lisinopril Unknown Seasonal Allergies Itching, Other: See Comments MEDICATIONS: abemaciclib (VERZENIO) 100 mg tablet^Take 1 tablet (100 mg) by mouth two times a day.^Disp: 60 tablet^Rfl: 3 anastrozole (ARIMIDEX) 1 mg tablet^Take 1 tablet by mouth once daily.^Disp: 90 tablet^Rfl: 1 ondansetron (ZOFRAN) 8 mg tablet^Take 1 tablet by mouth every 8 hours as needed for nausea/vomiting.^Disp: 90 tablet^Rfl: 1 prochlorperazine (COMPAZINE) 10 mg tablet^Take 1 tablet by mouth every 6 hours as needed.^Disp: 100 tablet^Rfl: 1 loperamide (ANTI-DIARRHEAL) 2 mg cap(s)^Take 1 capsule by mouth four times daily as needed for diarrhea.^Disp: 100 capsule^Rfl: 1 celecoxib (CELEBREX) 100 mg capsule^Take 100 mg by mouth twice daily.^Disp: ^Rfl: albuterol HFA (PROVENTIL HFA, VENTOLIN HFA) 90 mcg/actuation inhaler^INHALE 2 PUFFS 4 TIMES PER DAY NEEDED FOR SHORTNESS OF BREATH OR WHEEZING^Disp: ^Rfl: atorvastatin (LIPITOR) 40 mg tablet^Take 40 mg by mouth once daily.^Disp: ^Rfl: loratadine (CLARITIN) 10 mg tablet^Take 10 mg by mouth once daily.^Disp: ^Rfl: metFORMIN (GLUCOPHAGE) 1,000 mg tablet^Metformin Active 1000 MG PO Every morning May 04, 2021 3:24pm^Disp: ^Rfl: carvedilol (COREG) 25 mg tablet^Take 25 mg by mouth twice daily.^Disp: ^Rfl: acetaminophen (TYLENOL) 325 mg tablet^Take 650 mg by mouth every 6 hours as needed.^Disp: ^Rfl: amLODIPine (NORVASC) 10 mg tablet^Take 10 mg by mouth once daily.^Disp: ^Rfl: levothyroxine sodium (LEVOTHYROXINE ORAL)^Take 50 mcg by mouth once daily.^Disp: ^Rfl: rOPINIRole (REQUIP) 0.25 mg tablet^Take 0.25 mg by mouth daily at bedtime.^Disp: ^Rfl: LABORATORY VALUES: WBC (k/uL) Date Value 05/02/2023 2.59 (L) RBC (m/uL) Date Value 05/02/2023 3.29 (L) Hemoglobin (g/dL) Date Value 05/02/2023 11.0 (L) Hematocrit (%) Date Value 05/02/2023 33.0 (L) MCV (fL) Date Value 05/02/2023 100.3 (H) MCH (pg) Date Value 05/02/2023 33.4 MCHC (g/dL) Date Value 05/02/2023 33.3 RDW-CV (%) Date Value 05/02/2023 14.6 Platelet Count (k/uL) Date Value 05/02/2023 150 MPV (fL) Date Value 05/02/2023 9.2 Glucose (mg/dL) Date Value 05/02/2023 84 BUN (mg/dL) Date Value 05/02/2023 26 (H) Creatinine (mg/dL) Date Value 05/02/2023 1.18 (H) Sodium (mmol/L) Date Value 05/02/2023 139 Potassium (mmol/L) Date Value 05/02/2023 4.3 Chloride (mmol/L) Date Value 05/02/2023 105 CO2 (mmol/L) Date Value 05/02/2023 24 Protein, Total (g/dL) Date Value 05/02/2023 6.9 Albumin (g/dL) Date Value 05/02/2023 4.3 Calcium, Total (mg/dL) Date Value 05/02/2023 10.7 (H) Alkaline Phosphatase (U/L) Date Value 05/02/2023 74 Bilirubin, Total (mg/dL) Date Value 05/02/2023 0.2 AST (U/L) Date Value 05/02/2023 14 ALT (U/L) Date Value 05/02/2023 12 DIAGNOSIS: (C50.411, Z17.0) Malignant neoplasm of upper-outer quadrant of right breast in female, estrogen receptor positive (HCC) (primary encounter diagnosis) (D70.2) Other drug-induced neutropenia (HCC) (F33.1) Major depressive disorder, recurrent episode, moderate (HCC) (C50.911, C77.3) Breast cancer metastasized to axillary lymph node, right (HCC) (N18.30) Stage 3 chronic kidney disease, unspecified whether stage 3a or 3b CKD (HCC) PAST MEDICAL HISTORY Diagnosis Date Asthma Breast cancer (HCC) right breast DMII (diabetes mellitus, type 2) (HCC) 03/19/2022 Fibromyalgia HLD (hyperlipidemia) 03/19/2022 HTN (hypertension) Hypothyroidism 03/19/2022 Migraine Obesity Primary hypertension 03/19/2022 RLS (restless legs syndrome) 03/19/2022 PAST SURGICAL HISTORY Procedure Laterality Date APPENDECTOMY BREAST LUMPECTOMY HX Right 2022 BX OF BREAST; INCISIONAL Right COLONOSCOPY SCREENING LIGATE FALLOPIAN TUBE MASTECTOMY, PARTIAL Right 03/25/2022 PAST SURGICAL HISTORY OF Rt Shoulder PAST SURGICAL HISTORY OF Rt knee tendons PAST SURGICAL HISTORY OF Right shoulder tendons Social History Tobacco Use Smoking status: Never Passive exposure: Past Smokeless tobacco: Never Vaping Use Vaping Use: Never used Substance Use Topics Alcohol use: Not Currently Comment: 1 glass of wne a month Drug use: Never FAMILY HISTORY Problem Relation Age of Onset Cancer Mother lung Hypertension Mother Heart disease Father Hypertension Father Cancer Sister Cancer Brother brain Cervical Cancer Daughter Lymphoma Daughter I spent a total of 30 minutes on the date of service which included preparing to see the patient, [id number] patient care, completing clinical documentation, performing a medically appropriate examination, counseling and educating the patient/family/caregiver, ordering medications, tests, or procedures, independently interpreting results (not separately reported), communicating results to the patient/family/caregiver, and care coordination (not separately reported). Narendra Dao MD, CPE Hematology and Oncology Services Provided at: [facility], [place], [place] Scribe Attestation: This note was scribed by Bijal Coronado on May 02, 2023 under the direction and supervision of Dr. Narendra Dao. I attest that all of the information documented is correct to the best of my knowledge. Provider Attestation: I, Narendra Dao MD, attest that all information documented by the above scribe is correct, and was supervised by me and under my direction. CC: Dr. Reece Mercedes documented in this encounter [facility] 05-02-2023 Note [facility] 05-02-2023 Instructions Bijal Coronado - 05/02/2023 2:09 PM EST Triage call results of CT from today Hold Verzenio for 2 weeks Virtual visit in 2 weeks to determine continuation of Verzenio If no improvement, will hold Arimidex documented in this encounter [facility] 05-02-2023 Note [facility] 05-02-2023 Note [facility] 04-11-2023 Note [facility] 04-11-2023 History of Present illness Narrative SOCIAL WORK FOLLOW UP NOTE: [facility] Date of service:04/12/23 Kiah Cortes is being seen for a follow up social work visit. Today's visit includes: patient TOPICS ADDRESSED: Body donation to [facility]. PLAN: Continue follow up as needed Assigned SW listed in Care Team tab: Yes Patient inquired about donating her body to [facility]. SW printed out information including a phone number and email address to the [facility] Body Donation Program. No other needs or concerns were identified. SW will remain available and will follow up as appropriate. STEPHY Kitchen documented in this encounter [facility] 04-11-2023 History of Present illness Narrative Images from the original note were not included. NAME: [facility] NO.: [id number] DATE OF SERVICE: April 11, 2023 (Elements copied from Dr. Dao's note dated March 21, 2023, have been reviewed and updated where appropriate, and all reflect current assessment and medical decision making during today's encounter, April 11, 2023) Referring Provider: Dr. Shaikh West Additional Clinicians involved in Kiah Cortes's care: Dr. Shahana Mercedes DIAGNOSIS: Right breast cancer ASSESSMENT: 67 year old woman with right breast lump diagnosed with Stage cIIA IDC ER/HI++, HER2(0) breast cancer cT2 cN1, cMx in need of consideration for neoadjuvant chemotherapy and resection following completion of chemotherapy. Patient started neoadjuvant Taxotere and cytoxan with GSF on 12/04/21. Tolerated well with minor side effects. Pulmonary nodule--0.3 cm RML nodule identified on CT chest was most likely related to her recovering URI. - repeat CT chest with findings most consistent with radiation changes but will need to keep monitoring in 3-6 months (April-June 2023) Thickened L adrenal gland on CTs--consider repeat imaging following treatment. Pre-op Cts with concern for diverticulitis. Will folow with GI. S/p R0 resection with persisting disease following neoadjuvant therapy. Given high risk disease (6 nodes +), plan was to treat in the adjuvant setting according to [place] [facility] trial of Abemaciclib + AI. Started September 22, 2022. Shingles Resolved PLAN: She is tolerating treatment well. Currently on anastrozole 1mg daily and verzenio 100 mg bid. Today with grade I thrombocytopenia and leukopenia. Would recommend continuing current doses unless counts become greater than or equal to grade 3 per [employer] and the package insert. Plan to repeat her CT chest in April -June 2023 to follow suspected radiation changes. HPI: CASE HISTORY: 03/21/2023 - Decrease Verzenio to 100mg BID 02/24/2023 - Held abemaciclib 1 week in order to allow bone marrow recovery still hasn't recovered. Will hold longer. May need to change dosing. 02/17/2023 - CT Chest: Increasing regions of groundglass opacification within the right upper lobe, encompassing the previously noted right upper lobe nodular opacity. Findings are favored to be secondary to evolving postradiation fibrosis, or new infection/inflammation. Continued attention on surveillance imaging is suggested. Stable nodular thickening of the left adrenal, likely secondary to hyperplasia. 01/03/2023 - CT CAP: New semisolid nodule and subcentimeter solid nodule in the right upper lobe of the lungs with a new small right pleural effusion. Resection of patient's previously seen right axillary lymph nodes and compared to the prior study. There is no suspicious axillary, mediastinal, or hilar lymphadenopathy. There is intraluminal with skin thickening of the right breast. No evidence of metastatic disease in the abdomen or pelvis. There is stable nodular thickening of the left adrenal gland. Given the stability, this is likely due to adenomatous hyperplasia. 11/15/2022 - Resumed Abemaciclib 10/07/2022 - Mammogram negative. 09/30/2022 - held abemaciclib due to rash - herpetic rash. 09/22/2022 - started Abemaciclib with anastrozole 08/02/2022 - finished RT. 05/24/2022 - Colonoscopy - sigmoid diverticulosis, otherwise normal 03/25/2022 - Rt Breast Lumpectomy and AxLND - residual IDC with signet ring features and treatment effect. IDC grade 2, 22 mm, margins negative, ypT2,pN2a, ER+HI+, HER2 neg (0), right axilly content - 08/09 nodes involved with macro-metastatic disease. VANI in at least one LN. 02/26/2022 - CT CAP : right axillary LN, subtle subpleural RML nodular opacity and subtle groundglass opacities. Sigmoid colon thickening. 12/04/2021-02/12/2022 - 4 cycles Taxotere + Cytoxan neoadjuvant. 11/27/2021 - Bone scan: No suspicious foci of activity. No scintigraphic evidence of osseous metastases. Likely degenerative/arthritic changes as described. 11/20/2021 - CT abdomen and pelvis: Nonspecific nodular thickening of the left adrenal gland. Consider interval follow-up. Otherwise no evidence of intra-abdominal/intrapelvic metastases. Subcentimeter left hepatic cyst. Sigmoid colon diverticulosis without evidence of diverticulitis. Nonspecific haziness of the mesenteric fat may represent edema or infectious/inflammatory etiologies. 11/10/2021 - MRI Breasts: - Birads 6 - rt breast - 7cmfn @ 10:00 3.6x3.1x2.5, 3-[address], lft breast Birads2 10/30/2021 - CT chest: Multiple enlarged right axillary lymph nodes, highly suspicious for neoplastic involvement. A 0.3 cm right middle lobe pulmonary nodule is nonspecific. Continued attention on subsequent studies is suggested. 10/02/2021 - US & Diag mammography - Right breast 12 O'Clock, 7 cm from nipple - 2.9 x 2.5 cm mass - x IDC +Axillary LN. G1, ER/HI 90/80% HER2 ([facility]) = 0 09/30/2021 - right breast ultrasound: 2.9 x 2.5 x 2.3 cm mass 8 cm from the nipple at the 9 and 10 o'clock position of the right breast suspicious for malignancy. Suspicious lymph nodes in the right axilla noted. 08/2021 - noted right breast mass on self exam. Updated Visit, April 11, 2023: Prince Edward Isl returns for follow up. No verzenio 100 mg bid and anastrozole. She is doing well overall. Has had some mild diarrhea episodes, but easily resolved. Denies any nausea or vomiting. She has chronic underlying shortness of breath which is unchanged. Denies cough. Updated Visit, March 21, 2023: Prince Edward Isl returns today. WBC and platelets are back up. She does not feel as tired anymore. She has lost her hair. She reports her field of vision intermittently looks like a kaleidescope, will follow up with eye doctor. She says she wants to donate her body to science when she passes away. Updated Visit, February 24, 2023: Virtual Visit Prince Edward Isl is doing well and feels good but review of her labs show persistent cyctopenias. Will hold verzenio longer. Discussed potential plans to decrease dose. Updated Visit, February 17, 2023: Prince Edward Isl returns for follow up today. She reports being tired lately and experiencing indigestion. She endorses experiencing a mild cough and some congestion. Has also been experiencing diarrhea for the past 2 days. She looks slightly pale today, she thinks this could be due to not having eaten yet today. Reports doing okay on Verzenio. She has been having better glycemic control lately. We reviewed her labs, she has a slightly elevated Ca. She thinks she is taking Ca supplement. Her WBC count has declined a bit further, I would like her to hold Verzenio for a week. Her CT report from radiology is still pending, but we looked at the images. My impression is that the nodule could be infectious, but we will need to await official interpretation by radiology. Updated Visit, January 27, 2023: Prince Edward Isl is here by herself today and is doing well and feeling pretty good. Counts recovered. Patient held verzenio for 3 weeks. Kidney function is down will monitor. Updated Visit, January 07, 2023: Prince Edward Isl is here today accompanied by Roberta for follow up to review her recent labs and imaging. She has been doing fine lately, says she has been sitting on the couch a lot not doing much. I would recommend repeating the scans in a few weeks because the area of concern is too small to biopsy. She should wait on getting her vaccines until she hold her meds for a week to see if there is an improvement with her blood counts. Updated Visit, December 13, 2022: Kiah Cortes returns for follow-up. At her last visit the abemaciclib was resumed. She complains of fatigue and not having any motivation. She used to ronni and now is not even motivated to do that. Otherwise, she is tolerating treatment well. She also remains on Arimidex. She denies any areas of pain. She denies fevers, chills, night sweats or signs/symptoms of infection. No bleeding or abnormal bruising. Updated Visit, November 15, 2022: Rash mostly resolved. Still has some swelling in the side of the breast.rash resolved. Chaperoned Breast exam (Reuben Payne) - right breast with dependent edema left breast normal. Updated Visit, October 18, 2022: Prince Edward Isl returns today and her herpetic rash is still resolving. Pain has resolved but complaints of fullness and swelling in the right breast in the site of radiation. Chaperoned exam (Reuben Payne) right breast with mild lymphedema. Herpetic rash still resolving. Updated Visit, October 05, 2022: Prince Edward Isl returns for an urgent visit. She started her abemaciclib on 09/22/22 and on 09/30/2022 she noticed an itchy, painful rash to her right back/bra line area. It continued to spread around to her underarm area and on the back of her right arm. No fevers, chills. Updated Visit, September 20, 2022: Chaperoned Breast exam (Reuben Panye) right breast with lymphedema and some normal dimpling with healed scar in the axillary tail. Left breast is normal in texture. Bilateral axillary exam is negative. Doing well with Arimidex single agent now. Is willing to start on verzenio according to DESHAWN-E. Feels her feet have swelling and mild neuropathy. Mild neuropathy also in hands when holding the steering wheel. Itching of her palms that sometimes resolves with lotion. Updated Visit, August 30, 2022: Just got back from visiting her son in [place] and saw her daughter from [place] and all of her grand kids. Had lots of bone aches with arimidex and so will restart single agent. After 3 weeks will start on verzenio. Updated Visit, July 23, 2022: Continues radiation for 10 more fractions. Otherwise doing well. Hands still troubling her with knitting. Otherwise doing well. Updated Visit, May 14, 2022: Still healing Chap ex (Reuben Padilla) - right breast - axillary scar with slight dehiscence - silver sulvidene in place. Radiation is unable to start yet. Updated Visit, April 02, 2022: Prince Edward Isl returns having had her resection last week and soaping machine back tender with drains in place. We will need to discuss adjuvant therapy in more depth as she had fairly significant persistent disease following resection in the resected specimen. I would presume that she fits along side the patient enrolled in the [place] E trial of abemaciclib + AI in such women that had neoadjuvant chemotherapy. We will discuss this more in depth when patient can spend time focusing on discussion and not feeling so uncomfortable. Abemaciclib plus ET demonstrated superior IDFS versus ET alone (P = .01; hazard ratio, 0.75; 95% CI, 0.60 to 0.93), with 2-year IDFS rates of 92.2% versus 88.7%, respectively. She had concern for diverticulitis on CT abdomen prior to surgery and will follow with GI for colonoscopy. Updated Visit, February 12, 2022: Kiah Cortes returns for follow-up and her final treatment with Taxotere and Cytoxan. She is tolerating treatment well. She has some sinus drainage and has been coughing this morning. She denies fevers, chills, night sweats and signs/symptoms of infection. No bleeding or abnormal bruising. Her biggest side effect from treatment is fatigue. Otherwise, no significant side effects. She wishes to proceed with treatment as planned. Updated Visit, February 05, 2022: Here with Virginia hands improved Port flush today made her feel dizzy She's more fatigued than expected Looks cristina BP is notably decreased Renal function has dropped acutely. Updated Visit, January 15, 2022: Kiah Cortes here for cycle 3 Taxotere and Cytoxan. Since her last visit she has noticed some peeling of both of her hands. She denies any redness or pain to her hands. She has been keeping her hands well lotion. She also had right heel pain that lasted 2 to 3 days and she described it like stepping on glass or needles. She has had some fatigue. She denies fevers, chills, night sweats and signs/symptoms of infection. No bleeding or abnormal bruising. Overall, she is doing well and wishes to proceed with treatment as planned. 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 Updated Visit, December 14, 2021: Prince Edward Isl returns for jagdish counts and follow up after starting neoadjuvant Taxotere and cyclophosphamide with GFS on 12/04/21. She does report having a headache for 2 days following treatment that was relieved with tylenol. Did have some constipation and hard stools. Had one episode of blood in stool on 12/11/21. None since. No nausea, vomiting or diarrhea. Appetite and taste is down but she is eating. Drinking is fine, but wine and coffee tastes bad. Some dry mouth but drinking at least 80-120cc of water everyday. No fevers, chills, cough, or shortness of breath. Updated Visit, December 04, 2021: Prince Edward Isl returns with [place] her daughter. Reviewed CT Abdomen / Pelvis. Bone scan was negative. Will proceed with treatment. Chaperoned exam notable for 3-4 cm right upper outer quadrant breast mass easily palpable. No palpable axillary LN's. Updated Visit, November 18 2021: Prince Edward Isl returns with her daughter [place] and has seen Dr. Mercedes and completed her MRI as well as CT Chest. Given the number of LN's involved, additional staging studies have been ordered to be completed including NM Bone scan and CT abdomen / Pelvis. Once these are completed and negative, we can proceed with planned neoadjuvant chemotherapy with up to 6 cycles of TC. Aside from being anxious, she is doing well. Initial Visit, October 21, 2021: Kiah Cortes presents today Hematology and Oncology evaluation. She is a 66 year old female who noted a mass on self breast exam in the right breast. 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 She's here with her daughter [place]. She was referred for medical oncology opinion regarding breast cancer. Will need to complete staging and anticipate lisa-adjuvant chemotherapy give peterson disease. FHX cancer: Daughter [place] - had cervical not ovarian Mother had lung cancer Another Daughter had lymphoma PATHOLOGY/MOLECULAR DATA: Breast, right, at 12:00, 7 cm from the nipple, ultrasound-guided core biopsy ([id number], part A; 10/02/2021): ---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 ---Please see comment. Lymph node, right axillary tail, ultrasound-guided core biopsy ([id number], part B; 10/02/2021): ---Metastatic mammary carcinoma with signet ring features, measuring at least 13 mm in greatest dimension, likely representing a lymph node completely replaced by carcinoma. ---Please see comment. Right breast invasive carcinoma: Right axillary tail metastasis: ER: POSITIVE (100%, strong) ER: POSITIVE (100%, strong) HI: POSITIVE (100%, strong) HI: POSITIVE (100%, strong) HER2 IHC: NEGATIVE (0) HER2 IHC: NEGATIVE (0) Controls react as expected Controls react as expected REVIEW OF SYSTEMS Per HPI and otherwise negative by full review of organ systems. ECOG PERFORMANCE STATUS: 0 PHYSICAL EXAMINATION: Vitals: BP 117/64 Pulse 74 Temp (Src) 97.1 (Temporal) Resp 18 Ht 5' 2.008 (1.58m) Wt 213 lb 13.5 oz (97.0kg) SpO2 96% BMI 39.10 kg/(m^2). Body surface area is 2.06 meters squared. General: Alert and oriented, no distress, pleasant and cooperative. Heart: Regular, normal S1 and S2, no murmurs, rubs, or gallops Lungs: Clear to auscultation bilaterally Abdomen: Benign Extremities: Feet/ankles without edema, posterior tibial pulses full and symmetrical ALLERGIES: ALLERGIES Allergen Reactions Lisinopril Unknown Seasonal Allergies Itching, Other: See Comments MEDICATIONS: abemaciclib (VERZENIO) 100 mg tablet^Take 1 tablet (100 mg) by mouth two times a day.^Disp: 60 tablet^Rfl: 3 anastrozole (ARIMIDEX) 1 mg tablet^Take 1 tablet by mouth once daily.^Disp: 90 tablet^Rfl: 1 ondansetron (ZOFRAN) 8 mg tablet^Take 1 tablet by mouth every 8 hours as needed for nausea/vomiting.^Disp: 90 tablet^Rfl: 1 prochlorperazine (COMPAZINE) 10 mg tablet^Take 1 tablet by mouth every 6 hours as needed.^Disp: 100 tablet^Rfl: 1 loperamide (ANTI-DIARRHEAL) 2 mg cap(s)^Take 1 capsule by mouth four times daily as needed for diarrhea.^Disp: 100 capsule^Rfl: 1 celecoxib (CELEBREX) 100 mg capsule^Take 100 mg by mouth twice daily.^Disp: ^Rfl: albuterol HFA (PROVENTIL HFA, VENTOLIN HFA) 90 mcg/actuation inhaler^INHALE 2 PUFFS 4 TIMES PER DAY NEEDED FOR SHORTNESS OF BREATH OR WHEEZING^Disp: ^Rfl: atorvastatin (LIPITOR) 40 mg tablet^Take 40 mg by mouth once daily.^Disp: ^Rfl: loratadine (CLARITIN) 10 mg tablet^Take 10 mg by mouth once daily.^Disp: ^Rfl: metFORMIN (GLUCOPHAGE) 1,000 mg tablet^Metformin Active 1000 MG PO Every morning May 04, 2021 3:24pm^Disp: ^Rfl: carvedilol (COREG) 25 mg tablet^Take 25 mg by mouth twice daily.^Disp: ^Rfl: acetaminophen (TYLENOL) 325 mg tablet^Take 650 mg by mouth every 6 hours as needed.^Disp: ^Rfl: amLODIPine (NORVASC) 10 mg tablet^Take 10 mg by mouth once daily.^Disp: ^Rfl: levothyroxine sodium (LEVOTHYROXINE ORAL)^Take 50 mcg by mouth once daily.^Disp: ^Rfl: rOPINIRole (REQUIP) 0.25 mg tablet^Take 0.25 mg by mouth daily at bedtime.^Disp: ^Rfl: LABORATORY VALUES: WBC (k/uL) Date Value 04/11/2023 2.81 (L) RBC (m/uL) Date Value 04/11/2023 3.42 (L) Hemoglobin (g/dL) Date Value 04/11/2023 11.4 (L) Hematocrit (%) Date Value 04/11/2023 34.6 (L) MCV (fL) Date Value 04/11/2023 101.2 (H) MCH (pg) Date Value 04/11/2023 33.3 MCHC (g/dL) Date Value 04/11/2023 32.9 RDW-CV (%) Date Value 04/11/2023 13.3 Platelet Count (k/uL) Date Value 04/11/2023 139 (L) MPV (fL) Date Value 04/11/2023 9.6 Glucose (mg/dL) Date Value 04/11/2023 156 (H) BUN (mg/dL) Date Value 04/11/2023 24 (H) Creatinine (mg/dL) Date Value 04/11/2023 1.29 (H) Sodium (mmol/L) Date Value 04/11/2023 141 Potassium (mmol/L) Date Value 04/11/2023 4.0 Chloride (mmol/L) Date Value 04/11/2023 105 CO2 (mmol/L) Date Value 04/11/2023 26 Protein, Total (g/dL) Date Value 04/11/2023 6.9 Albumin (g/dL) Date Value 04/11/2023 4.1 Calcium, Total (mg/dL) Date Value 04/11/2023 10.6 (H) Alkaline Phosphatase (U/L) Date Value 04/11/2023 87 Bilirubin, Total (mg/dL) Date Value 04/11/2023 0.2 AST (U/L) Date Value 04/11/2023 12 (L) ALT (U/L) Date Value 04/11/2023 11 DIAGNOSIS: (C50.411, Z17.0) Malignant neoplasm of upper-outer quadrant of right breast in female, estrogen receptor positive (HCC) (HCC) (primary encounter diagnosis) Plan: COMP METABOLIC PANEL, CBC + DIFF (D69.6) Platelets decreased (HCC) Plan: COMP METABOLIC PANEL, CBC + DIFF PAST MEDICAL HISTORY Diagnosis Date Asthma Breast cancer (HCC) right breast DMII (diabetes mellitus, type 2) (HCC) 03/19/2022 Fibromyalgia HLD (hyperlipidemia) 03/19/2022 HTN (hypertension) Hypothyroidism 03/19/2022 Migraine Obesity Primary hypertension 03/19/2022 RLS (restless legs syndrome) 03/19/2022 PAST SURGICAL HISTORY Procedure Laterality Date APPENDECTOMY BREAST LUMPECTOMY HX Right 2022 BX OF BREAST; INCISIONAL Right COLONOSCOPY SCREENING LIGATE FALLOPIAN TUBE MASTECTOMY, PARTIAL Right 03/25/2022 PAST SURGICAL HISTORY OF Rt Shoulder PAST SURGICAL HISTORY OF Rt knee tendons PAST SURGICAL HISTORY OF Right shoulder tendons Social History Tobacco Use Smoking status: Never Passive exposure: Past Smokeless tobacco: Never Vaping Use Vaping Use: Never used Substance Use Topics Alcohol use: Not Currently Comment: 1 glass of wne a month Drug use: Never FAMILY HISTORY Problem Relation Age of Onset Cancer Mother lung Hypertension Mother Heart disease Father Hypertension Father Cancer Sister Cancer Brother brain Cervical Cancer Daughter Lymphoma Daughter Zack Winston PA-C CC: Dr. Reece Mercedes documented in this encounter [facility] 04-11-2023 Note [facility] 03-21-2023 Note [facility] 02-24-2023 Note [facility] 02-22-2023 Note [facility] 02-17-2023 Note [facility] 02-17-2023 Note [facility] 02-17-2023 Note [facility] 02-11-2023 Note [facility] 02-11-2023 History of Present illness Narrative Radiation Oncology - Follow Up Note PATIENT NAME: Kiah Cortes PATIENT DIAGNOSIS/PATIENT IDENTIFICATION: Ms. Cortes is a 67-year-old woman diagnosed with [id number] IDC of the right breast, ER/HI positive HER2 negative status post neoadjuvant chemotherapy under the care of Dr. Dao consisting of TC x4c completing on 02/12/2022 followed by right breast wide local excision and axillary lymph node dissection with Dr. Mercedes on 03/25/2022 showing residual [id number] disease. Pathology described a residual 2.2 cm of intermediate grade IDC with negative margins and 6 of 12 lymph nodes positive for metastatic disease with largest focus of 3.3 cm with extranodal extension. She completed a course of postoperative radiation therapy to the right breast and regional lymph nodes on 08/02/2022 (6000 cGy delivered in 30 fractions). INTERVAL HISTORY/ROS: Ms. Cortes returns to clinic today for routine follow-up approximately six months after the completion of her radiation treatments. In the interim, she had initial posttreatment mammogram on 10/07/2022 showing expected posttreatment changes with no radiographic concerns. She also met with Dr. Mercedes and clinical breast exam was without concerns. CT imaging of the chest from last month on 01/03/2023 noted the interval development of a subcentimeter nodule in the right chest of unclear significance with recommendation for repeat short interval imaging. She has also started systemic therapy with Arimidex and Verzenio and tolerating without hot flashes or joint pains but does have decreased white count. Today she denies any pain or discomfort in the breast except for some occasional tightness with extremes of range of motion of the right upper extremity. She reports intact skin without irritation or breakdown and no new lumps or bumps. She endorses stable energy appetite and hydration. She otherwise denies any recent fevers, chills, headaches, difficulty with speech/swallowing, shortness of breath, chest pain/palpitations, abdominal pain, nausea, vomiting, change in bowel/urinary habits, difficulty with gait/balance, recent falls, etc. The remainder of the review of systems was performed and was otherwise noncontributory. ALLERGIES ALLERGIES Allergen Reactions Lisinopril Unknown Seasonal Allergies Itching, Other: See Comments MEDICATIONS: Current Outpatient Medications: anastrozole (ARIMIDEX) 1 mg tablet abemaciclib (VERZENIO) 150 mg tablet ondansetron (ZOFRAN) 8 mg tablet prochlorperazine (COMPAZINE) 10 mg tablet loperamide (ANTI-DIARRHEAL) 2 mg cap(s) celecoxib (CELEBREX) 100 mg capsule albuterol HFA (PROVENTIL HFA, VENTOLIN HFA) 90 mcg/actuation inhaler atorvastatin (LIPITOR) 40 mg tablet loratadine (CLARITIN) 10 mg tablet metFORMIN (GLUCOPHAGE) 1,000 mg tablet carvedilol (COREG) 25 mg tablet acetaminophen (TYLENOL) 325 mg tablet amLODIPine (NORVASC) 10 mg tablet levothyroxine sodium (LEVOTHYROXINE ORAL) rOPINIRole (REQUIP) 0.25 mg tablet No current facility-administered medications for this visit. Facility-Administered Medications Ordered in Other Visits: lidocaine 20 mg/mL (2 %) injection (XYLOCAINE) lidocaine 20 mg/mL (2 %) injection (XYLOCAINE) PHYSICAL EXAM: GENERAL: middle-aged woman sitting in chair in no acute distress. VITALS: BP 108/75 Pulse 72 Temp 97 Resp 16 Wt 211 lb 10.3 oz (96.0kg) SpO2 99% KPS: 80 HEENT: NC/AT, anicteric sclera HEART: S1S2 LUNGS: non-labored breathing ABDOMEN: soft MUSCULOSKELETAL: no peripheral edema, moves all extremities. NEURO: no focal deficit; A&O X3. RADIOLOGIC DATA: Bilateral Mammogram (10/07/2022) IMPRESSION: BENIGN FINDING There is no mammographic evidence of malignancy. A 1 year screening mammogram is recommended. The patient is status post lumpectomy right breast in the upper outer quadrant. There are post-op and radiation changes in the right breast. No significant masses, calcifications, or other findings are seen in either breast. CT Chest (01/03/2023) IMPRESSION: 1. New semisolid nodule and subcentimeter solid nodule in the right upper lobe of the lungs with a new small right pleural effusion. The nodules could be infectious/inflammatory in etiology. However, this cannot be confirmed. Would advise appropriate workup for infectious/inflammatory etiologies and a short-term follow-up chest CT without contrast in 6 weeks to reassess the right upper lobe nodularity. 2. Resection of patient's previously seen right axillary lymph nodes and compared to the prior study. There is no suspicious axillary, mediastinal, or hilar lymphadenopathy. There is intraluminal with skin thickening of the right breast. Please correlate clinically if this could be related to interval posttreatment response. ASSESSMENT AND PLAN: Ms. Cortes is a 67-year-old woman diagnosed with [id number] IDC of the right breast, ER/HI positive HER2 negative status post neoadjuvant chemotherapy under the care of Dr. Dao consisting of TC x4c completing on 02/12/2022 followed by right breast wide local excision and axillary lymph node dissection with Dr. Mercedes on 03/25/2022 showing residual [id number] disease. Pathology described a residual 2.2 cm of intermediate grade IDC with negative margins and 6 of 12 lymph nodes positive for metastatic disease with largest focus of 3.3 cm with extranodal extension. She completed a course of postoperative radiation therapy to the right breast and regional lymph nodes on 08/02/2022 (6000 cGy delivered in 30 fractions). She is currently maintained on Arimidex and Verzenio. Ms. Cortes is doing well clinically approximately 6 months after the completion of her radiation treatments to the right breast and regional lymph nodes with no significant residual sequela at this time. Her initial posttreatment imaging with bilateral mammogram from 10/07/2022 was without radiographic concern for disease (BI-RADS 2) and clinical breast exam by Dr. Mercedes was also without concern for disease recurrence. Repeat CT of the chest on 01/03/2023 did note the interval development of a subcentimeter nodule in the right upper lobe of the lung warranting surveillance. She will continue her follow-up and surveillance with Dr. Dao and have an open follow-up with us here in the radiation medicine clinic. The patient is aware to contact the clinic in the interim should any questions or concerns arise. Thank you for allowing us to participate in the care of this patient. Signed by: Reece Leach MD I spent a total of 20 minutes on the date of the service which included preparing to see the patient, [id number] patient care, and counseling and educating the patient/family/caregiver. This document has been created with the use of voice recognition technology. It may contain inaccuracies, misspellings, inaccurate syntax or inappropriate word context that are a result of the inadequacies/shortcomings of said technology/software. documented in this encounter [facility] 01-27-2023 Instructions Narendra Dao MD - 01/27/2023 3:55 PM EST Resume Abemaciclib (verzenio). RTC in 3 weeks. Labs same day - anemia labs too. Continue Arimidex CT chest in 3 weeks from now. This is to evaluate for pulmonary nodule on prior CT as well as a thickened left adrenal gland. documented in this encounter [facility] 01-27-2023 History of Present illness Narrative Images from the original note were not included. NAME: Kiah Cortes CLINIC NO.: [id number] DATE OF SERVICE: [facility] [address] [facility] Some elements in this clinic note that are critical to medical decision making have been carefully reviewed and included from a prior clinic note dated: January 07, 2023 ([facility]) Referring Provider: Dr. Shaikh West Additional Clinicians involved in Kiah Cortes's care: Dr. Shahana Mercedes DIAGNOSIS: Right breast cancer ASSESSMENT: 67 year old woman with right breast lump diagnosed with Stage cIIA IDC ER/HI++, HER2(0) breast cancer cT2 cN1, cMx in need of consideration for neoadjuvant chemotherapy and resection following completion of chemotherapy. Patient started neoadjuvant Taxotere and cytoxan with GSF on 12/04/21. Tolerated well with minor side effects. After she left the office, labs indicate elevation in BUN and creatinine, likely consistent with dehydration, corrected with hydration. Pulmonary nodule--0.3cm RML nodule on CT chest, repeat imaging following treatment. Thickened L adrenal gland on CTs--consider repeat imaging following treatment. Pre-op Cts with concern for diverticulitis. Will folow with GI. S/p R0 resection with persisting disease following neoadjuvant therapy. Given high risk disease (6 nodes +), plan was to treat in the adjuvant setting according to [place] [facility] trial of Abemaciclib + AI. Started September 22, 2022. shingles improving in the T4 are dermatome pattern. Finished treatment with Famciclovir 500 mg TID for 10 days. Will continue NSAIDS for pain. Discussed other options if pain worsens. Hold abemaciclib 1 week in order to allow bone marrow recovery. Nodule identified on CT chest was most likely related to her recovering URI. - repeat CT chest ordered. PLAN: Resume Abemaciclib (verzenio). RTC in 3 weeks. Labs same day - anemia labs too. Continue Arimidex CT chest in 3 weeks from now. This is to evaluate for pulmonary nodule on prior CT as well as a thickened left adrenal gland. HPI: CASE HISTORY: 01/03/2023 - CT CAP: New semisolid nodule and subcentimeter solid nodule in the right upper lobe of the lungs with a new small right pleural effusion. Resection of patient's previously seen right axillary lymph nodes and compared to the prior study. There is no suspicious axillary, mediastinal, or hilar lymphadenopathy. There is intraluminal with skin thickening of the right breast. No evidence of metastatic disease in the abdomen or pelvis. There is stable nodular thickening of the left adrenal gland. Given the stability, this is likely due to adenomatous hyperplasia. 11/15/2022 - Resumed Abemaciclib 10/07/2022 - Mammogram negative. 09/30/2022 - held abemaciclib due to rash - herpetic rash. 09/22/2022 - started Abemaciclib with anastrozole 08/02/2022 - finished RT. 05/24/2022 - Colonoscopy - sigmoid diverticulosis, otherwise normal 03/25/2022 Rt Breast Lumpectomy and AxLND - residual IDC with signet ring features and treatment effect. IDC grade 2, 22 mm, margins negative, ypT2,pN2a, ER+HI+, HER2 neg (0), right axilly content - 08/09 nodes involved with macro-metastatic disease. VANI in at least one LN. 02/26/2022 - CT CAP : right axillary LN, subtle subpleural RML nodular opacity and subtle groundglass opacities. Sigmoid colon thickening. 12/04/2021-02/12/2022: 4 cycles Taxotere + Cytoxan neoadjuvant. 11/27/2021 - Bone scan: No suspicious foci of activity. No scintigraphic evidence of osseous metastases. Likely degenerative/arthritic changes as described. 11/20/2021 - CT abdomen and pelvis: Nonspecific nodular thickening of the left adrenal gland. Consider interval follow-up. Otherwise no evidence of intra-abdominal/intrapelvic metastases. Subcentimeter left hepatic cyst. Sigmoid colon diverticulosis without evidence of diverticulitis. Nonspecific haziness of the mesenteric fat may represent edema or infectious/inflammatory etiologies. 11/10/2021 - MRI Breasts: - Birads 6 - rt breast - 7cmfn @ 10:00 3.6x3.1x2.5, 3-[address], lft breast Birads2 10/30/2021 - CT chest: Multiple enlarged right axillary lymph nodes, highly suspicious for neoplastic involvement. A 0.3 cm right middle lobe pulmonary nodule is nonspecific. Continued attention on subsequent studies is suggested. 10/02/2021 - US & Diag mammography - Right breast 12 O'Clock, 7 cm from nipple - 2.9 x 2.5 cm mass - x IDC +Axillary LN. G1, ER/HI 90/80% HER2 ([facility]) = 0 09/30/2021 - right breast ultrasound: 2.9 x 2.5 x 2.3 cm mass 8 cm from the nipple at the 9 and 10 o'clock position of the right breast suspicious for malignancy. Suspicious lymph nodes in the right axilla noted. 08/2021 - noted right breast mass on self exam. Updated Visit, January 27, 2023: Prince Edward Isl is here by herself today and is doing well and feeling pretty good. Counts recovered. Patient held verzenio for 3 weeks. Kidney function is down will monitor. Updated Visit, January 07, 2023: Prince Edward Isl is here today accompanied by Roberta for follow up to review her recent labs and imaging. She has been doing fine lately, says she has been sitting on the couch a lot not doing much. I would recommend repeating the scans in a few weeks because the area of concern is too small to biopsy. She should wait on getting her vaccines until she hold her meds for a week to see if there is an improvement with her blood counts. Updated Visit, December 13, 2022: Kiah Cortes returns for follow-up. At her last visit the abemaciclib was resumed. She complains of fatigue and not having any motivation. She used to ronni and now is not even motivated to do that. Otherwise, she is tolerating treatment well. She also remains on Arimidex. She denies any areas of pain. She denies fevers, chills, night sweats or signs/symptoms of infection. No bleeding or abnormal bruising. Updated Visit, November 15, 2022: Rash mostly resolved. Still has some swelling in the side of the breast.rash resolved. Chaperoned Breast exam (Reuben Payne) - right breast with dependent edema left breast normal. Updated Visit, October 18, 2022: Prince Edward Isl returns today and her herpetic rash is still resolving. Pain has resolved but complaints of fullness and swelling in the right breast in the site of radiation. Chaperoned exam (Reuben Payne) right breast with mild lymphedema. Herpetic rash still resolving. Updated Visit, October 05, 2022: Prince Edward Isl returns for an urgent visit. She started her abemaciclib on 09/22/22 and on 09/30/2022 she noticed an itchy, painful rash to her right back/bra line area. It continued to spread around to her underarm area and on the back of her right arm. No fevers, chills. Updated Visit, September 20, 2022: Chaperoned Breast exam (Reuben Payne) right breast with lymphedema and some normal dimpling with healed scar in the axillary tail. Left breast is normal in texture. Bilateral axillary exam is negative. Doing well with Arimidex single agent now. Is willing to start on verzenio according to [facility]. Feels her feet have swelling and mild neuropathy. Mild neuropathy also in hands when holding the steering wheel. Itching of her palms that sometimes resolves with lotion. Updated Visit, August 30, 2022: Just got back from visiting her son in [place] and saw her daughter from [place] and all of her grand kids. Had lots of bone aches with arimidex and so will restart single agent. After 3 weeks will start on verzenio. Updated Visit, July 23, 2022: Continues radiation for 10 more fractions. Otherwise doing well. Hands still troubling her with knitting. Otherwise doing well. Updated Visit, May 14, 2022: Still healing Chap ex (Reuben Padilla) - right breast - axillary scar with slight dehiscence - silver sulvidene in place. Radiation is unable to start yet. Updated Visit, April 02, 2022: Prince Edward Isl returns having had her resection last week and soaping machine back tender with drains in place. We will need to discuss adjuvant therapy in more depth as she had fairly significant persistent disease following resection in the resected specimen. I would presume that she fits along side the patient enrolled in the [place] E trial of abemaciclib + AI in such women that had neoadjuvant chemotherapy. We will discuss this more in depth when patient can spend time focusing on discussion and not feeling so uncomfortable. Abemaciclib plus ET demonstrated superior IDFS versus ET alone (P = .01; hazard ratio, 0.75; 95% CI, 0.60 to 0.93), with 2-year IDFS rates of 92.2% versus 88.7%, respectively. She had concern for diverticulitis on CT abdomen prior to surgery and will follow with GI for colonoscopy. Updated Visit, February 12, 2022: Kiah Cortes returns for follow-up and her final treatment with Taxotere and Cytoxan. She is tolerating treatment well. She has some sinus drainage and has been coughing this morning. She denies fevers, chills, night sweats and signs/symptoms of infection. No bleeding or abnormal bruising. Her biggest side effect from treatment is fatigue. Otherwise, no significant side effects. She wishes to proceed with treatment as planned. Updated Visit, February 05, 2022: Here with [place] hands improved Port flush today made her feel dizzy She's more fatigued than expected Looks cristina BP is notably decreased Renal function has dropped acutely. Updated Visit, January 15, 2022: Kiah Cortes here for cycle 3 Taxotere and Cytoxan. Since her last visit she has noticed some peeling of both of her hands. She denies any redness or pain to her hands. She has been keeping her hands well lotion. She also had right heel pain that lasted 2 to 3 days and she described it like stepping on glass or needles. She has had some fatigue. She denies fevers, chills, night sweats and signs/symptoms of infection. No bleeding or abnormal bruising. Overall, she is doing well and wishes to proceed with treatment as planned. 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 Updated Visit, December 14, 2021: Prince Edward Isl returns for jagdish counts and follow up after starting neoadjuvant Taxotere and cyclophosphamide with GFS on 12/04/21. She does report having a headache for 2 days following treatment that was relieved with tylenol. Did have some constipation and hard stools. Had one episode of blood in stool on 12/11/21. None since. No nausea, vomiting or diarrhea. Appetite and taste is down but she is eating. Drinking is fine, but wine and coffee tastes bad. Some dry mouth but drinking at least 80-120cc of water everyday. No fevers, chills, cough, or shortness of breath. Updated Visit, December 04, 2021: Prince Edward Isl returns with [place] her daughter. Reviewed CT Abdomen / Pelvis. Bone scan was negative. Will proceed with treatment. Chaperoned exam notable for 3-4 cm right upper outer quadrant breast mass easily palpable. No palpable axillary LN's. Updated Visit, November 18 2021: Prince Edward Isl returns with her daughter [place] and has seen Dr. Mercedes and completed her MRI as well as CT Chest. Given the number of LN's involved, additional staging studies have been ordered to be completed including NM Bone scan and CT abdomen / Pelvis. Once these are completed and negative, we can proceed with planned neoadjuvant chemotherapy with up to 6 cycles of TC. Aside from being anxious, she is doing well. Initial Visit, October 21, 2021: Kiah Cortes presents today Hematology and Oncology evaluation. She is a 66 year old female who noted a mass on self breast exam in the right breast. 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 She's here with her daughter [place]. She was referred for medical oncology opinion regarding breast cancer. Will need to complete staging and anticipate lisa-adjuvant chemotherapy give peterson disease. FHX cancer: Daughter [place] - had cervical not ovarian Mother had lung cancer Another Daughter had lymphoma PATHOLOGY/MOLECULAR DATA: Breast, right, at 12:00, 7 cm from the nipple, ultrasound-guided core biopsy ([id number], part A; 10/02/2021): ---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 ---Please see comment. Lymph node, right axillary tail, ultrasound-guided core biopsy ([id number], part B; 10/02/2021): ---Metastatic mammary carcinoma with signet ring features, measuring at least 13 mm in greatest dimension, likely representing a lymph node completely replaced by carcinoma. ---Please see comment. Right breast invasive carcinoma: ER: POSITIVE (100%, strong) HI: POSITIVE (100%, strong) HER2 IHC: NEGATIVE (0) Controls react as expected Right axillary tail metastasis: ER: POSITIVE (100%, strong) HI: POSITIVE (100%, strong) HER2 IHC: NEGATIVE (0) Controls react as expected REVIEW OF SYSTEMS Per HPI and otherwise negative by full review of organ systems. ECOG PERFORMANCE STATUS: 0 PHYSICAL EXAMINATION: Vitals: BP 134/63 Pulse 71 Temp (Src) 97.9 (Temporal) Resp 18 Ht 5' 2.008 (1.58m) Wt 211 lb 6.4 oz (95.9kg) SpO2 96% BMI 38.66 kg/(m^2). Body surface area is 2.05 meters squared. Exam limited to gross visualization where appropriate. Gen.: This is an age-appropriate patient in no acute distress. Head: Appears atraumatic with no visible lesions. Eyes: Pupils equally round and reactive to light, extraocular muscles are intact. Neck: Supple. Respiratory: Appears to be respiring comfortably. Neurologic: Nonfocal to gross visualization. Alert and oriented 3. Psychiatric: No evidence of inappropriate anxiety or depression. Skin: Visible areas of skin without rash, lesions, wounds or petechiae. Prior breast exam in [facility] November 15, 2022 ALLERGIES: ALLERGIES Allergen Reactions Lisinopril Unknown Seasonal Allergies Itching, Other: See Comments MEDICATIONS: anastrozole (ARIMIDEX) 1 mg tablet^TAKE 1 TABLET BY MOUTH EVERY DAY^Disp: 90 tablet^Rfl: 1 multivitamin with minerals (HAIR,SKIN AND NAILS ORAL)^Take 2 tablets by mouth once daily.^Disp: ^Rfl: ondansetron (ZOFRAN) 8 mg tablet^Take 1 tablet by mouth every 8 hours as needed for nausea/vomiting.^Disp: 90 tablet^Rfl: 1 prochlorperazine (COMPAZINE) 10 mg tablet^Take 1 tablet by mouth every 6 hours as needed.^Disp: 100 tablet^Rfl: 1 loperamide (ANTI-DIARRHEAL) 2 mg cap(s)^Take 1 capsule by mouth four times daily as needed for diarrhea.^Disp: 100 capsule^Rfl: 1 celecoxib (CELEBREX) 100 mg capsule^Take 100 mg by mouth twice daily.^Disp: ^Rfl: albuterol HFA (PROVENTIL HFA, VENTOLIN HFA) 90 mcg/actuation inhaler^INHALE 2 PUFFS 4 TIMES PER DAY NEEDED FOR SHORTNESS OF BREATH OR WHEEZING^Disp: ^Rfl: atorvastatin (LIPITOR) 40 mg tablet^Take 40 mg by mouth once daily.^Disp: ^Rfl: loratadine (CLARITIN) 10 mg tablet^Take 10 mg by mouth once daily.^Disp: ^Rfl: metFORMIN (GLUCOPHAGE) 1,000 mg tablet^Metformin Active 1000 MG PO Every morning May 04, 2021 3:24pm^Disp: ^Rfl: carvedilol (COREG) 25 mg tablet^Take 25 mg by mouth twice daily.^Disp: ^Rfl: acetaminophen (TYLENOL) 325 mg tablet^Take 650 mg by mouth every 6 hours as needed.^Disp: ^Rfl: amLODIPine (NORVASC) 10 mg tablet^Take 10 mg by mouth once daily.^Disp: ^Rfl: levothyroxine sodium (LEVOTHYROXINE ORAL)^Take 50 mcg by mouth once daily.^Disp: ^Rfl: rOPINIRole (REQUIP) 0.25 mg tablet^Take 0.25 mg by mouth daily at bedtime.^Disp: ^Rfl: iv contrast (will be provided with radiology test)^CT Chest W -Inject, intravenously, once for 1 dose.No IV access, insert saline lock prior to the beginning of sedation, infusion, injection of imaging exam. Discontinue saline lock post exam. If Pt. has a central line or IVAD, may access for administration according to line specific nursing protocol. Once exam is complete flush line and de-access according to line specific nursing protocol in the CT contrast administration guidelines link.^Disp: 1 Each^Rfl: 0 abemaciclib (VERZENIO) 150 mg tablet^take 1 tablet by mouth 2 times a day^Disp: 56 tablet^Rfl: 3 LABORATORY VALUES: WBC (k/uL) Date Value 01/27/2023 4.44 RBC (m/uL) Date Value 01/27/2023 3.27 (L) Hemoglobin (g/dL) Date Value 01/27/2023 11.0 (L) Hematocrit (%) Date Value 01/27/2023 32.8 (L) MCV (fL) Date Value 01/27/2023 100.3 (H) MCH (pg) Date Value 01/27/2023 33.6 MCHC (g/dL) Date Value 01/27/2023 33.5 RDW-CV (%) Date Value 01/27/2023 17.6 (H) Platelet Count (k/uL) Date Value 01/27/2023 251 MPV (fL) Date Value 01/27/2023 9.7 Glucose (mg/dL) Date Value 01/27/2023 113 (H) BUN (mg/dL) Date Value 01/27/2023 23 (H) Creatinine (mg/dL) Date Value 01/27/2023 1.35 (H) Sodium (mmol/L) Date Value 01/27/2023 140 Potassium (mmol/L) Date Value 01/27/2023 3.7 Chloride (mmol/L) Date Value 01/27/2023 104 CO2 (mmol/L) Date Value 01/27/2023 24 Protein, Total (g/dL) Date Value 01/27/2023 6.8 Albumin (g/dL) Date Value 01/27/2023 4.4 Calcium, Total (mg/dL) Date Value 01/27/2023 9.9 Alkaline Phosphatase (U/L) Date Value 01/27/2023 88 Bilirubin, Total (mg/dL) Date Value 01/27/2023 0.4 AST (U/L) Date Value 01/27/2023 15 ALT (U/L) Date Value 01/27/2023 11 DIAGNOSIS: (C50.611) 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) (primary encounter diagnosis) Plan: CA 15-3 BLD, CA 27.29 BLOOD, COMP METABOLIC PANEL, CBC + DIFF, IRON + TIBC, FERRITIN BLD, VITAMIN B12 BLOOD, FOLATE SERUM (R91.8) Lung nodules Plan: CT CHEST W IVCON (N18.30) Stage 3 chronic kidney disease, unspecified whether stage 3a or 3b CKD (HCC) Plan: CA 15-3 BLD, CA 27.29 BLOOD, COMP METABOLIC PANEL, CBC + DIFF, IRON + TIBC, FERRITIN BLD, VITAMIN B12 BLOOD, FOLATE SERUM (D64.9) Anemia, unspecified type Plan: CA 15-3 BLD, CA 27.29 BLOOD, COMP METABOLIC PANEL, CBC + DIFF, IRON + TIBC, FERRITIN BLD, VITAMIN B12 BLOOD, FOLATE SERUM PAST MEDICAL HISTORY Diagnosis Date Asthma Breast cancer (HCC) right breast DMII (diabetes mellitus, type 2) (HCC) 03/19/2022 Fibromyalgia HLD (hyperlipidemia) 03/19/2022 HTN (hypertension) Hypothyroidism 03/19/2022 Migraine Obesity Primary hypertension 03/19/2022 RLS (restless legs syndrome) 03/19/2022 PAST SURGICAL HISTORY Procedure Laterality Date APPENDECTOMY BREAST LUMPECTOMY HX Right 2022 BX OF BREAST; INCISIONAL Right COLONOSCOPY SCREENING LIGATE FALLOPIAN TUBE MASTECTOMY, PARTIAL Right 03/25/2022 PAST SURGICAL HISTORY OF Rt Shoulder PAST SURGICAL HISTORY OF Rt knee tendons PAST SURGICAL HISTORY OF Right shoulder tendons Social History Tobacco Use Smoking status: Never Passive exposure: Past Smokeless tobacco: Never Vaping Use Vaping Use: Never used Substance Use Topics Alcohol use: Not Currently Comment: 1 glass of wne a month Drug use: Never FAMILY HISTORY Problem Relation Age of Onset Cancer Mother lung Hypertension Mother Heart disease Father Hypertension Father Cancer Sister Cancer Brother brain Cervical Cancer Daughter Lymphoma Daughter I spent a total of 30 minutes on the date of service which included preparing to see the patient, [id number] patient care, completing clinical documentation, performing a medically appropriate examination, counseling and educating the patient/family/caregiver, ordering medications, tests, or procedures, independently interpreting results (not separately reported), communicating results to the patient/family/caregiver, and care coordination (not separately reported). Narendra Dao MD, CPE Hematology and Oncology Services Provided at: [place], [place] CC: Dr. Reece Mercedes documented in this encounter [facility] 01-27-2023 Note [facility] 01-10-2023 Miscellaneous Notes The following approved medication requests have been transmitted electronically. Requested Prescriptions Signed Prescriptions Disp Refills anastrozole (ARIMIDEX) 1 mg tablet 90 tablet 1 Sig: TAKE 1 TABLET BY MOUTH EVERY DAY Authorizing Provider: DIPTI MERRITT APRN.SECRETARIAL TEACHER documented in this encounter [facility] 01-07-2023 Note [facility] 01-04-2023 Miscellaneous Notes Pharmacy requesting refill. Scan scheduled in December, f/u with Dr Leach in Jan, no f/u with [facility] at this time Reuben Jett, LacyD, BCOP documented in this encounter [facility] 01-03-2023 Note [facility] 01-03-2023 Note [facility] 12-27-2022 Miscellaneous Notes Agree - thank you Pt taking Verzenio & Arimidex. C/o nausea, no vomiting. Having 4-5 soft, semi-formed stools per day. Has Zofran, Compazine, and Imodium at home, but not taking. Directed pt to take imodium for the diarrhea and the Zofran/Compazine for the nausea. Pt states that she is tolerating oral fluids w/o difficulty. Pt verbalizes understanding. Any other recommendations? 2. Pt reports swelling in her right breast. No redness or warmth. Advised she contact her surgeon since she has had post surgical issues in the past. Pt verbalizes understanding and agrees. Miriam Nj RN documented in this encounter [facility] 12-21-2022 Note [facility] 12-21-2022 History of Present illness Narrative Patient Name: Kiah Cortes : 1955 Referred For: CHAIR MASSAGE Diagnosis: MUSCLE SORENESS Chief Complaint: Relaxation Anxiety (pre): patient declined to answer Pain (pre): patient declined to answer Stress Level (pre): patient declined to answer Therapy Provided: Massage Therapy Area(s) Treated: RIGHT ARM/ RIGHT SHOULDER Anxiety (post): patient declined to answer Pain (post): patient declined to answer Stress Level (post): patient declined to answer Visit Outcome: Better Comments: PATIENT STATES OF SWELLING OF THE RIGHT ARM Treatment Plan: EFFLEURAGE/PETRISSAGE NECK, UPPER SHOULDERS AND LOWER BACK AND LEGS Care Team contacted: N/A Signature: Marsha Horowitz LMT Date: December 21, 2022 Time: 2:26 PM documented in this encounter [facility] 12-14-2022 Note [facility] 12-14-2022 History of Present illness Narrative Patient Name: Kiah Cortes : 1955 Referred For: CHAIR MASSAGE Diagnosis: MUSCLE SORENESS Chief Complaint: Relaxation Anxiety (pre): patient declined to answer Pain (pre): patient declined to answer Stress Level (pre): patient declined to answer Therapy Provided: Massage Therapy Area(s) Treated: NECK, SHOULDERS, AND LOWER BACK Anxiety (post): patient declined to answer Pain (post): patient declined to answer Stress Level (post): patient declined to answer Visit Outcome: Better Comments: PATIENT STATES OF KALEIDOSCOPE VISION, NECK AND SHOULDER SORENESS Treatment Plan: SCALP MASSAGE, MYOFASCIAL RELEASE TO OCCIPITAL RIDGE AND POST NEC[facility]CLES Care Team contacted: N/A Signature: Marsha Horowitz LMT Date: December 14, 2022 Time: 1:52 PM documented in this encounter [facility] 12-13-2022 Miscellaneous Notes Pt calls w/ the following questions: Pt asks if her CT scans were ordered w/ contrast. Informed pt that she will be receiving IV and oral contrast w/ her CT scans. Pt verbalizes understanding. 2. Pt notes today's low WBC. Asks if there is anything she can do to bring it up? Informed pt that there is nothing she can do to raise her WBC. Reassured her that it should increase w/ time. Signs/symptom so infection reviewed w/ pt. Pt verbalizes understanding. Miriam Nj RN documented in this encounter [facility] 12-13-2022 Note [facility] 11-30-2022 Note [facility] 11-23-2022 Note [facility] 11-16-2022 Note [facility] 11-16-2022 History of Present illness Narrative Patient Name: Kiah Cortes : 1955 Referred For: CHAIR MASSAGE Diagnosis: MUSCLE SORNESS Chief Complaint: Pain Anxiety (pre): patient declined to answer Pain (pre): patient declined to answer Stress Level (pre): patient declined to answer Therapy Provided: Massage Therapy Area(s) Treated: RIGHT KNEE Anxiety (post): patient declined to answer Pain (post): patient declined to answer Stress Level (post): patient declined to answer Visit Outcome: Better Comments: PATIENT STATES OF RIGHT KNEE SORENESS AND PAIN. PATIENT IS IN [facility] THERAPY FOR 6 WKS (PT IS IN THE 2 WK OF THERAPY). PATIENT STATES OF FLUID BUILD UP IN THE RIGHT (BREAST) AXILLARY. Treatment Plan: EFFLEUR/PETRISS TO BOTH UPPER/ LOWER LEGS AND KNEES. MANUAL LYMPH DRAIN MASSAGE POST KNEES/INGUINAL AREAS AND AXILLARY. Care Team contacted: N/A Signature: Marsha Horowitz LMT Date: November 16, 2022 Time: 2:12 PM documented in this encounter [facility] 11-15-2022 Note [facility] 11-09-2022 Note [facility] 11-09-2022 History of Present illness Narrative Patient Name: Kiah Cortes : 1955 Referred For: CHAIR MASSAGE Diagnosis: MUSCLE SORENESS Chief Complaint: Relaxation Anxiety (pre): patient declined to answer Pain (pre): patient declined to answer Stress Level (pre): patient declined to answer Therapy Provided: Massage Therapy Area(s) Treated: NECK, UPPER SHOULDERS, LOW BACK, RIGHT SIDE HIP, LEGS Anxiety (post): patient declined to answer Pain (post): patient declined to answer Stress Level (post): patient declined to answer Visit Outcome: Better Comments: MUSCLE SORENESS ON THE RIGHT SIDE OF THE BODY. NECK, RIGHT SHOULDER, RIGHT HIP/LEGS Treatment Plan: MYOFASCIAL RELEASE TO NECK (SCALP), UPPER SHOULDERS, FRICTION TO HIPS, LEGS AND KNEES Care Team contacted: N/A Signature: Marsha Horowitz LMT Date: November 09, 2022 Time: 12:00 PM documented in this encounter [facility] 10-22-2022 Note [facility] 10-22-2022 History of Present illness Narrative SOCIAL WORK FOLLOW UP NOTE: [facility] Date of service:10/22/22 PLAN: Continue follow up as needed SW completed and faxed a mileage reimbursement form on the Patient's behalf to Cancer Services for the month of September 2022. STEPHY Kitchen documented in this encounter [facility] 10-18-2022 Rodri Dao Narendra, MD - 10/18/2022 1:16 PM EDT Hold Abemaciclib until rash completely resolves. Reassess in 4 weeks RTC in 4 weeks Labs Exam documented in this encounter [facility] 10-18-2022 History of Present illness Narrative Images from the original note were not included. NAME: Kiah Cortes [facility] NO.: [id number] DATE OF SERVICE: October 18, 2022 (Maddy) Some elements in this clinic note that are critical to medical decision making have been carefully reviewed and included from a prior clinic note dated: October 05, 2022 (Quinton) Referring Provider: Dr. Shaikh West Additional Clinicians involved in Kiah Cortes's care: Dr. Shahana Mercedes DIAGNOSIS: Right breast cancer ASSESSMENT: 67 year old woman with right breast lump diagnosed with Stage cIIA IDC ER/HI++, HER2(0) breast cancer cT2 cN1, cMx in need of consideration for neoadjuvant chemotherapy and resection following completion of chemotherapy. Patient started neoadjuvant Taxotere and cytoxan with GSF on 12/04/21. Tolerated well with minor side effects. After she left the office, labs indicate elevation in BUN and creatinine, likely consistent with dehydration, corrected with hydration. Pulmonary nodule--0.3cm RML nodule on CT chest, repeat imaging following treatment. Thickened L adrenal gland on CTs--consider repeat imaging following treatment. Pre-op Cts with concern for diverticulitis. Will folow with GI. S/p R0 resection with persisting disease following neoadjuvant therapy. Given high risk disease (6 nodes +), plan was to treat in the adjuvant setting according to [place] [facility] trial of Abemaciclib + AI. Started September 22, 2022. shingles improving in the T4 are dermatome pattern. Finished treatment with Famciclovir 500 mg TID for 10 days. Will continue NSAIDS for pain. Discussed other options if pain worsens. Hold abemaciclib until rash fully cleared. PLAN: Hold Abemaciclib until rash completely resolves. Reassess in 4 weeks RTC in 4 weeks Labs Exam same day HPI: CASE HISTORY: 10/07/2022 - Mammogram negative. 09/30/2022 - held abemaciclib due to rash 09/22/2022 - started Abemaciciib with anastrozole 08/02/2022 - finished RT. 05/24/2022 - Colonoscopy - sigmoid diverticulosis, otherwise normal 03/25/2022 Rt Breast Lumpectomy and AxLND - residual IDC with signet ring features and treatment effect. IDC grade 2, 22 mm, margins negative, ypT2,pN2a, ER+HI+, HER2 neg (0), right axilly content - 08/09 nodes involved with macro-metastatic disease. VANI in at least one LN. 02/26/2022 - CT CAP : right axillary LN, subtle subpleural RML nodular opacity and subtle groundglass opacities. Sigmoid colon thickening. 12/04/2021 - 02/12/2022 4 cycles Taxotere + Cytoxan neoadjuvant. 11/27/2021 - NM bone scan - negative 11/20/2021 - CT A/P - negative 11/10/2021 MRI Breasts: - Birads 6 - rt breast - 7cmfn @ 10:00 3.6x3.1x2.5, 3-[address], lft breast Birads2 10/30/2021 CT Chest: multiple rt axillary LN, 0.3 cm right mid-lobe nodule - non-specific. 10/02/2021 US & Diag mammography - Right breast 12 O'Clock, 7 cm from nipple - 2.9 x 2.5 cm mass - x IDC +Axillary LN. G1, ER/HI 90/80% HER2 ([facility]) = 0 09/30/2021 right breast ultrasound: 2.9 x 2.5 x 2.3 cm mass 8 cm from the nipple at the 9 and 10 o'clock position of the right breast suspicious for malignancy. Suspicious lymph nodes in the right axilla noted. 08/2021 - noted right breast mass on self exam. Updated Visit, October 18, 2022: [place] Isl returns today and her herpetic rash is still resolving. Pain has resolved but complaints of fullness and swelling in the right breast in the site of radiation. Chaperoned exam (Reuben Payne) right breast with mild lymphedema. Herpetic rash still resolving. Updated Visit, October 05, 2022: Prince Edward Isl returns for an urgent visit. She started her abemaciclib on 09/22/22 and on 09/30/2022 she noticed an itchy, painful rash to her right back/bra line area. It continued to spread around to her underarm area and on the back of her right arm. No fevers, chills. Updated Visit, September 20, 2022: Chaperoned Breast exam (Reuben Payne) right breast with lymphedema and some normal dimpling with healed scar in the axillary tail. Left breast is normal in texture. Bilateral axillary exam is negative. Doing well with Arimidex single agent now. Is willing to start on verzenio according to [facility]. Feels her feet have swelling and mild neuropathy. Mild neuropathy also in hands when holding the steering wheel. Itching of her palms that sometimes resolves with lotion. Updated Visit, August 30, 2022: Just got back from visiting her son in [place] and saw her daughter from [place] and all of her grand kids. Had lots of bone aches with arimidex and so will restart single agent. After 3 weeks will start on verzenio. Updated Visit, July 23, 2022: Continues radiation for 10 more fractions. Otherwise doing well. Hands still troubling her with knitting. Otherwise doing well. Updated Visit, May 14, 2022: Still healing Chap ex (Reuben Padilla) - right breast - axillary scar with slight dehiscence - silver sulvidene in place. Radiation is unable to start yet. Updated Visit, April 02, 2022: Prince Edward Isl returns having had her resection last week and soaping machine back tender with drains in place. We will need to discuss adjuvant therapy in more depth as she had fairly significant persistent disease following resection in the resected specimen. I would presume that she fits along side the patient enrolled in the [place] E trial of abemaciclib + AI in such women that had neoadjuvant chemotherapy. We will discuss this more in depth when patient can spend time focusing on discussion and not feeling so uncomfortable. Abemaciclib plus ET demonstrated superior IDFS versus ET alone (P = .01; hazard ratio, 0.75; 95% CI, 0.60 to 0.93), with 2-year IDFS rates of 92.2% versus 88.7%, respectively. She had concern for diverticulitis on CT abdomen prior to surgery and will follow with GI for colonoscopy. Updated Visit, February 12, 2022: Kiah Cortes returns for follow-up and her final treatment with Taxotere and Cytoxan. She is tolerating treatment well. She has some sinus drainage and has been coughing this morning. She denies fevers, chills, night sweats and signs/symptoms of infection. No bleeding or abnormal bruising. Her biggest side effect from treatment is fatigue. Otherwise, no significant side effects. She wishes to proceed with treatment as planned. Updated Visit, February 05, 2022: Here with [place] hands improved Port flush today made her feel dizzy She's more fatigued than expected Looks cristina BP is notably decreased Renal function has dropped acutely. Updated Visit, January 15, 2022: Kiah Cortes here for cycle 3 Taxotere and Cytoxan. Since her last visit she has noticed some peeling of both of her hands. She denies any redness or pain to her hands. She has been keeping her hands well lotion. She also had right heel pain that lasted 2 to 3 days and she described it like stepping on glass or needles. She has had some fatigue. She denies fevers, chills, night sweats and signs/symptoms of infection. No bleeding or abnormal bruising. Overall, she is doing well and wishes to proceed with treatment as planned. 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 Updated Visit, December 14, 2021: Prince Edward Isl returns for jagdish counts and follow up after starting neoadjuvant Taxotere and cyclophosphamide with GFS on 12/04/21. She does report having a headache for 2 days following treatment that was relieved with tylenol. Did have some constipation and hard stools. Had one episode of blood in stool on 12/11/21. None since. No nausea, vomiting or diarrhea. Appetite and taste is down but she is eating. Drinking is fine, but wine and coffee tastes bad. Some dry mouth but drinking at least 80-120cc of water everyday. No fevers, chills, cough, or shortness of breath. Updated Visit, December 04, 2021: Prince Edward Isl returns with [place] her daughter. Reviewed CT Abdomen / Pelvis. Bone scan was negative. Will proceed with treatment. Chaperoned exam notable for 3-4 cm right upper outer quadrant breast mass easily palpable. No palpable axillary LN's. Updated Visit, November 18 2021: Prince Edward Isl returns with her daughter [place] and has seen Dr. Mercedes and completed her MRI as well as CT Chest. Given the number of LN's involved, additional staging studies have been ordered to be completed including NM Bone scan and CT abdomen / Pelvis. Once these are completed and negative, we can proceed with planned neoadjuvant chemotherapy with up to 6 cycles of TC. Aside from being anxious, she is doing well. Initial Visit, October 21, 2021: Kiah Cortes presents today Hematology and Oncology evaluation. She is a 66 year old female who noted a mass on self breast exam in the right breast. 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 She's here with her daughter [place]. She was referred for medical oncology opinion regarding breast cancer. Will need to complete staging and anticipate lisa-adjuvant chemotherapy give peterson disease. FHX cancer: Daughter [place] - had cervical not ovarian Mother had lung cancer Another Daughter had lymphoma REVIEW OF SYSTEMS Per HPI and otherwise negative by full review of organ systems. ECOG PERFORMANCE STATUS: 0 PHYSICAL EXAMINATION: Vitals: BP 122/70 Pulse 69 Temp (Src) 97.3 (Temporal) Resp 166 Ht 5' 2.008 (1.58m) Wt 215 lb 12.8 oz (97.9kg) SpO2 96% BMI 39.46 kg/(m^2). Body surface area is 2.07 meters squared. Gen.: This is an age-appropriate patient in no acute distress. Head: Appears atraumatic with no visible lesions. Eyes: Pupils equally round and reactive to light, extraocular muscles are intact. Neck: Supple. Respiratory: Appears to be respiring comfortably. Neurologic: Nonfocal to gross visualization. Alert and oriented 3. Psychiatric: No evidence of inappropriate anxiety or depression. Skin: Visible areas of skin without rash, lesions, wounds or petechiae. See chaperoned breast exam in HPI today ALLERGIES: ALLERGIES Allergen Reactions Lisinopril Unknown Seasonal Allergies Itching, Other: See Comments MEDICATIONS: multivitamin with minerals (HAIR,SKIN AND NAILS ORAL)^Take 2 tablets by mouth once daily.^Disp: ^Rfl: ondansetron (ZOFRAN) 8 mg tablet^Take 1 tablet by mouth every 8 hours as needed for nausea/vomiting.^Disp: 90 tablet^Rfl: 1 prochlorperazine (COMPAZINE) 10 mg tablet^Take 1 tablet by mouth every 6 hours as needed.^Disp: 100 tablet^Rfl: 1 loperamide (ANTI-DIARRHEAL) 2 mg cap(s)^Take 1 capsule by mouth four times daily as needed for diarrhea.^Disp: 100 capsule^Rfl: 1 anastrozole (ARIMIDEX) 1 mg tablet^Take 1 tablet by mouth once daily.^Disp: 30 tablet^Rfl: 1 celecoxib (CELEBREX) 100 mg capsule^Take 100 mg by mouth twice daily.^Disp: ^Rfl: albuterol HFA (PROVENTIL HFA, VENTOLIN HFA) 90 mcg/actuation inhaler^INHALE 2 PUFFS 4 TIMES PER DAY NEEDED FOR SHORTNESS OF BREATH OR WHEEZING^Disp: ^Rfl: atorvastatin (LIPITOR) 40 mg tablet^Take 40 mg by mouth once daily.^Disp: ^Rfl: loratadine (CLARITIN) 10 mg tablet^Take 10 mg by mouth once daily.^Disp: ^Rfl: metFORMIN (GLUCOPHAGE) 1,000 mg tablet^Metformin Active 1000 MG PO Every morning May 04, 2021 3:24pm^Disp: ^Rfl: carvedilol (COREG) 25 mg tablet^Take 25 mg by mouth twice daily.^Disp: ^Rfl: acetaminophen (TYLENOL) 325 mg tablet^Take 650 mg by mouth every 6 hours as needed.^Disp: ^Rfl: amLODIPine (NORVASC) 10 mg tablet^Take 10 mg by mouth once daily.^Disp: ^Rfl: levothyroxine sodium (LEVOTHYROXINE ORAL)^Take 50 mcg by mouth once daily.^Disp: ^Rfl: rOPINIRole (REQUIP) 0.25 mg tablet^Take 0.25 mg by mouth daily at bedtime.^Disp: ^Rfl: abemaciclib (VERZENIO) 150 mg tablet^Take 1 tablet (150 mg) by mouth twice daily.^Disp: 56 tablet^Rfl: 1 (Patient not taking: Reported on 10/07/2022) LABORATORY VALUES: WBC (k/uL) Date Value 10/18/2022 3.59 (L) RBC (m/uL) Date Value 10/18/2022 3.81 (L) Hemoglobin (g/dL) Date Value 10/18/2022 12.3 Hematocrit (%) Date Value 10/18/2022 36.2 MCV (fL) Date Value 10/18/2022 95.0 MCH (pg) Date Value 10/18/2022 32.3 MCHC (g/dL) Date Value 10/18/2022 34.0 RDW-CV (%) Date Value 10/18/2022 15.0 Platelet Count (k/uL) Date Value 10/18/2022 210 MPV (fL) Date Value 10/18/2022 9.3 Glucose (mg/dL) Date Value 10/18/2022 102 (H) BUN (mg/dL) Date Value 10/18/2022 22 (H) Creatinine (mg/dL) Date Value 10/18/2022 0.84 Sodium (mmol/L) Date Value 10/18/2022 140 Potassium (mmol/L) Date Value 10/18/2022 3.9 Chloride (mmol/L) Date Value 10/18/2022 108 (H) CO2 (mmol/L) Date Value 10/18/2022 22 Protein, Total (g/dL) Date Value 10/18/2022 6.7 Albumin (g/dL) Date Value 10/18/2022 4.3 Calcium, Total (mg/dL) Date Value 10/18/2022 9.6 Alkaline Phosphatase (U/L) Date Value 10/18/2022 101 Bilirubin, Total (mg/dL) Date Value 10/18/2022 0.4 AST (U/L) Date Value 10/18/2022 23 ALT (U/L) Date Value 10/18/2022 18 DIAGNOSIS: (C50.411, Z17.0) Malignant neoplasm of upper-outer quadrant of right breast in female, estrogen receptor positive (HCC) (primary encounter diagnosis) Plan: CA 27.29 BLOOD, CA 15-3 BLD, CBC + DIFF, COMP METABOLIC PANEL (C50.911, C77.3) Breast cancer metastasized to axillary lymph node, right (HCC) Plan: CA 27.29 BLOOD, CA 15-3 BLD, CBC + DIFF, COMP METABOLIC PANEL (B02.9) Herpes zoster without complication Plan: CA 27.29 BLOOD, CA 15-3 BLD PATH: reviewed today on 12/14/21 Breast, right, at 12:00, 7 cm from the nipple, ultrasound-guided core biopsy ([id number], part A; 10/02/2021): ---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 ---Please see comment. Lymph node, right axillary tail, ultrasound-guided core biopsy ([id number], part B; 10/02/2021): ---Metastatic mammary carcinoma with signet ring features, measuring at least 13 mm in greatest dimension, likely representing a lymph node completely replaced by carcinoma. ---Please see comment. Right breast invasive carcinoma: ER: POSITIVE (100%, strong) HI: POSITIVE (100%, strong) HER2 IHC: NEGATIVE (0) Controls react as expected Right axillary tail metastasis: ER: POSITIVE (100%, strong) HI: POSITIVE (100%, strong) HER2 IHC: NEGATIVE (0) Controls react as expected IMAGING: Bone scan 11/27/21 No suspicious foci of activity. No scintigraphic evidence of osseous metastases. Likely degenerative/arthritic changes as described. CT abdomen and pelvis 11/20/21 . Nonspecific nodular thickening of the left adrenal gland. Consider interval follow-up. 2. Otherwise no evidence of intra-abdominal/intrapelvic metastases. 3. Subcentimeter left hepatic cyst. 4. Sigmoid colon diverticulosis without evidence of diverticulitis. 5. Nonspecific haziness of the mesenteric fat may represent edema or infectious/inflammatory etiologies. CT chest 10/30/21 1. Multiple enlarged right axillary lymph nodes, highly suspicious for neoplastic involvement. 2. A 0.3 cm right middle lobe pulmonary nodule is nonspecific. Continued attention on subsequent studies is suggested. PAST MEDICAL HISTORY Diagnosis Date Asthma Breast cancer (HCC) right breast DMII (diabetes mellitus, type 2) (HCC) 03/19/2022 Fibromyalgia HLD (hyperlipidemia) 03/19/2022 HTN (hypertension) Hypothyroidism 03/19/2022 Migraine Obesity Primary hypertension 03/19/2022 RLS (restless legs syndrome) 03/19/2022 PAST SURGICAL HISTORY Procedure Laterality Date APPENDECTOMY BREAST LUMPECTOMY HX Right 2022 BX OF BREAST; INCISIONAL Right COLONOSCOPY SCREENING LIGATE FALLOPIAN TUBE MASTECTOMY, PARTIAL Right 03/25/2022 PAST SURGICAL HISTORY OF Rt Shoulder PAST SURGICAL HISTORY OF Rt knee tendons PAST SURGICAL HISTORY OF Right shoulder tendons Social History Tobacco Use Smoking status: Never Passive exposure: Past Smokeless tobacco: Never Vaping Use Vaping Use: Never used Substance Use Topics Alcohol use: Not Currently Comment: 1 glass of wne a month Drug use: Never FAMILY HISTORY Problem Relation Age of Onset Cancer Mother lung Hypertension Mother Heart disease Father Hypertension Father Cancer Sister Cancer Brother brain Cervical Cancer Daughter Lymphoma Daughter I spent a total of 30 minutes on the date of the service which included preparing to see the patient, [id number] patient care, completing clinical documentation, performing a medically appropriate examination, counseling and educating the patient/family/caregiver, ordering medications, tests, or procedures, independently interpreting results (not separately reported), communicating results to the patient/family/caregiver, and care coordination (not separately reported). Narendra Dao MD, CPE Hematology and Oncology Services Provided at: [place], [place] CC: Dr. Reece Mercedes documented in this encounter [facility] 10-18-2022 Note [facility] 10-18-2022 Nurse Note Patient states that she has swelling on right side of back that radiates to right side of breast. Also she finished the medication for Shingles. Loraine Booker MA documented in this encounter [facility] 10-07-2022 Note HNO ID: [id number] Author: Gertrudis Rich RT(R) Service: Radiology Author Type: Technologist Type: Progress Notes Filed: 10/07/2022 9:40 AM Note Text: Radiology Service Progress Note PATIENT NAME: Kiah Cortes DATE OF SERVICE: October 07, 2022 TIME: 9:40 AM PATIENT IDENTITY VERIFICATION COMPLETED USING TWO (2) IDENTIFIERS: Name and Date of confirmed by patient verbally and Name and Date of confirmed by identification band. FALL SCREENING: Has the patient had 2 falls in the last year or 1 fall with injury or currently using an Ambulatory Assistive Device ([place], Cane, Wheelchair, Crutches, etc.)? No PATIENT GENDER DATA: Female. status: : No status: NO. PATIENT RELEVANT IMPLANT DATA REVIEWED: Not Applicable RADIOLOGY DEPARTMENT: Mammography PERIPHERAL IV DATA: Not applicable SIGNED BY: RT Jl(R) October 07, 2022 9:40 AM [facility] 10-07-2022 Instructions Shahana Mercedes MD - 10/07/2022 10:37 AM EDT Ms Kiah Cortes Thank you for coming to see us today! I am so glad to see you are doing well. Today - we plan to transition your care to your Medical Oncology team for routine follow up. Breast health recommendations continue to include routine breast self awareness, annual clinical breast exams with Medical Breast team; annual mammography, minimal alcohol use and 150min / week of aerobic exercise per week. We are happy to see you any time in the future with any surgical breast questions or concerns. Shahana Mercedes MD, FACS documented in this encounter 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 Radiation: completed on 08/02/2022 - Dr Leach Endocrine therapy: ananstrozole and abemaciclib with Dr Dao OT: Nina So, OTR/[facility] and at [facility] Mammography: today She was diagnosed with shingles on 10/05 - treated by oncology - abemaciclib on hold due to this. Pain / rash only symptoms - T4 on her back. Her appetite and energy levels are improving. She has lost 12lbs with Herbal Life (approved by Dr Dao) and no longer taking daily naps. She has no breast complaints including masses, nipple discharge or breast pain. She denies upper extremity swelling. She dnies upper extremity range of motion complaints. She denies headaches, cough, shortness of breath, abdominal pain, or new bony aches or pains. PE: 10/07/22 1002 Weight: 99.3 kg (219 lb) GENERAL: Healthy, alert, no distress, cooperative, Smiling SKIN: warm, dry, skin color, texture, turgor normal, shingles appearing rash - right axilla/upper back HEAD/EYES: normocephalic, atraumatic, and anicteric NECK: Supple, ROM grossly WNL, No cervical lymphadenopathy RESP: Chest symmetrical with respirations, non labored MUSCULOSKELETAL: Upper extremities with normal range of motion, no lymphedema. Patient: ambulates independently. The patient was examined in the seated and supine position with the motion of the pectoralis muscles bilaterally. There are no masses visualized in the neck. The breasts are asymmetrical. The nipples are everted bilaterally. No dimpling, indentation, nipple discharge or nipple retraction noted bilaterally. After detailed breast examination no palpable abnormalities or concerning thickening are noted in the breasts bilaterally. Well healed incision, expected post radiation changes appearance with slight skin thickening / skin discoloration changes of the right breast / axilla. There is no cervical, supraclavicular or axillary lymphadenopathy noted bilaterally. IMAGIN10/07/2022 Mammography films and reports reviewed: There are scattered fibroglandular elements in both breasts. The patient is status post lumpectomy right breast in the upper outer quadrant. There are post-op and radiation changes in the right breast. No significant masses, calcifications, or other findings are seen in either breast. IMPRESSION: BENIGN FINDING There is no mammographic evidence of malignancy. A 1 year screening mammogram is recommended. Slime Aponte M.D. 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 Encouraged her to continue with monthly self breast exams, bi-annual clinical breast exams, annual mammography, 150min aerobic exercise / week and be consistent with taking her anastrozole under the direction of Dr Dao. Happy to see her anytime in the future with any surgical questions/concerns. All questions were answered to her satisfaction, she verbalizes understanding and is agreeable to the plan. Gera Phillips PA-C The patient was seen, personally examined and the plan was made in coordination with Gera Phillips PA-C. I personally reviewed and confirmed the findings except as otherwise noted. Shahana Mercedes MD documented in this encounter [facility] 10-07-2022 History of Present illness Narrative Radiology Service Progress Note PATIENT NAME: Kiah Cortes DATE OF SERVICE: October 07, 2022 TIME: 9:40 AM PATIENT IDENTITY VERIFICATION COMPLETED USING TWO (2) IDENTIFIERS: Name and Date of confirmed by patient verbally and Name and Date of confirmed by identification band. FALL SCREENING: Has the patient had 2 falls in the last year or 1 fall with injury or currently using an Ambulatory Assistive Device (Walker, Cane, Wheelchair, Crutches, etc.)? No PATIENT GENDER DATA: Female. status: : No status: NO. PATIENT RELEVANT IMPLANT DATA REVIEWED: Not Applicable RADIOLOGY DEPARTMENT: Mammography PERIPHERAL IV DATA: Not applicable SIGNED BY: RT Jl(R) October 07, 2022 9:40 AM documented in this encounter [facility] 10-05-2022 History of Present illness Narrative Images from the original note were not included. NAME: Kiah Cortes [facility] NO.: [id number] DATE OF SERVICE: October 05, 2022 (Elements copied from Dr. Dao's note dated September 20, 2022, have been reviewed and updated where appropriate, and all reflect current assessment and medical decision making during today's encounter, October 05, 2022) Referring Provider: Dr. Shaikh West Additional Clinicians involved in [place] [facility] [place]'s care: Dr. Shahana Mercedes DIAGNOSIS: Right breast cancer ASSESSMENT: 67 year old woman with right breast lump diagnosed with Stage cIIA IDC ER/HI++, HER2(0) breast cancer cT2 cN1, cMx in need of consideration for neoadjuvant chemotherapy and resection following completion of chemotherapy. Patient started neoadjuvant Taxotere and cytoxan with GSF on 12/04/21. Tolerated well with minor side effects. After she left the office, labs indicate elevation in BUN and creatinine, likely consistent with dehydration, corrected with hydration. Pulmonary nodule--0.3cm RML nodule on CT chest, repeat imaging following treatment. Thickened L adrenal gland on CTs--consider repeat imaging following treatment. Pre-op Cts with concern for diverticulitis. Will folow with GI. S/p R0 resection with persisting disease following neoadjuvant therapy. Given high risk disease (6 nodes +), plan was to treat in the adjuvant setting according to [facility] E trial of Abemaciclib + AI. Started September 22, 2022. Now with shingles on the T4 are dermatome pattern. Will treat with Famciclovir 500 mg TID for 10 days. Will continue NSAIDS for pain. Discussed other options if pain worsens. Hold abemaciclib. Keep current appointment with Dr. Dao for 10/18/22. HPI: CASE HISTORY: 09/30/2022 - held abemaciclib due to rash 09/22/2022 - started Abemaciciib with anastrozole 08/02/2022 - finished RT. 05/24/2022 - Colonoscopy - sigmoid diverticulosis, otherwise normal 03/25/2022 Rt Breast Lumpectomy and AxLND - residual IDC with signet ring features and treatment effect. IDC grade 2, 22 mm, margins negative, ypT2,pN2a, ER+HI+, HER2 neg (0), right axilly content - 08/09 nodes involved with macro-metastatic disease. VANI in at least one LN. 02/26/2022 - CT CAP : right axillary LN, subtle subpleural RML nodular opacity and subtle groundglass opacities. Sigmoid colon thickening. 12/04/2021 - 02/12/2022 4 cycles Taxotere + Cytoxan neoadjuvant. 11/27/2021 - NM bone scan - negative 11/20/2021 - CT A/P - negative 11/10/2021 MRI Breasts: - Birads 6 - rt breast - 7cmfn @ 10:00 3.6x3.1x2.5, 3-[address], lft breast Birads2 10/30/2021 CT Chest: multiple rt axillary LN, 0.3 cm right mid-lobe nodule - non-specific. 10/02/2021 US & Diag mammography - Right breast 12 O'Clock, 7 cm from nipple - 2.9 x 2.5 cm mass - x IDC +Axillary LN. G1, ER/HI 90/80% HER2 (IHC) = 0 09/30/2021 right breast ultrasound: 2.9 x 2.5 x 2.3 cm mass 8 cm from the nipple at the 9 and 10 o'clock position of the right breast suspicious for malignancy. Suspicious lymph nodes in the right axilla noted. 08/2021 - noted right breast mass on self exam. Updated Visit, October 05, 2022: [place] [facility] returns for an urgent visit. She started her abemaciclib on 09/22/22 and on 09/30/2022 she noticed an itchy, painful rash to her right back/bra line area. It continued to spread around to her underarm area and on the back of her right arm. No fevers, chills. Updated Visit, September 20, 2022: Chaperoned Breast exam (Reuben Payne) right breast with lymphedema and some normal dimpling with healed scar in the axillary tail. Left breast is normal in texture. Bilateral axillary exam is negative. Doing well with Arimidex single agent now. Is willing to start on verzenio according to [facility]. Feels her feet have swelling and mild neuropathy. Mild neuropathy also in hands when holding the steering wheel. Itching of her palms that sometimes resolves with lotion. Updated Visit, August 30, 2022: Just got back from visiting her son in [place] and saw her daughter from [place] and all of her grand kids. Had lots of bone aches with arimidex and so will restart single agent. After 3 weeks will start on verzenio. Updated Visit, July 23, 2022: Continues radiation for 10 more fractions. Otherwise doing well. Hands still troubling her with knitting. Otherwise doing well. Updated Visit, May 14, 2022: Still healing Chap ex (Reuben Padilla) - right breast - axillary scar with slight dehiscence - silver sulvidene in place. Radiation is unable to start yet. Updated Visit, April 02, 2022: [place] returns having had her resection last week and soaping machine back tender with drains in place. We will need to discuss adjuvant therapy in more depth as she had fairly significant persistent disease following resection in the resected specimen. I would presume that she fits along side the patient enrolled in the [facility] E trial of abemaciclib + AI in such women that had neoadjuvant chemotherapy. We will discuss this more in depth when patient can spend time focusing on discussion and not feeling so uncomfortable. Abemaciclib plus ET demonstrated superior IDFS versus ET alone (P = .01; hazard ratio, 0.75; 95% CI, 0.60 to 0.93), with 2-year IDFS rates of 92.2% versus 88.7%, respectively. She had concern for diverticulitis on CT abdomen prior to surgery and will follow with GI for colonoscopy. Updated Visit, February 12, 2022: Kiah Cortes returns for follow-up and her final treatment with Taxotere and Cytoxan. She is tolerating treatment well. She has some sinus drainage and has been coughing this morning. She denies fevers, chills, night sweats and signs/symptoms of infection. No bleeding or abnormal bruising. Her biggest side effect from treatment is fatigue. Otherwise, no significant side effects. She wishes to proceed with treatment as planned. Updated Visit, February 05, 2022: Here with [place] hands improved Port flush today made her feel dizzy She's more fatigued than expected Looks cristina BP is notably decreased Renal function has dropped acutely. Updated Visit, January 15, 2022: Kiah Cortes here for cycle 3 Taxotere and Cytoxan. Since her last visit she has noticed some peeling of both of her hands. She denies any redness or pain to her hands. She has been keeping her hands well lotion. She also had right heel pain that lasted 2 to 3 days and she described it like stepping on glass or needles. She has had some fatigue. She denies fevers, chills, night sweats and signs/symptoms of infection. No bleeding or abnormal bruising. Overall, she is doing well and wishes to proceed with treatment as planned. 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 Updated Visit, December 14, 2021: [place] returns for jagdish counts and follow up after starting neoadjuvant Taxotere and cyclophosphamide with GFS on 12/04/21. She does report having a headache for 2 days following treatment that was relieved with tylenol. Did have some constipation and hard stools. Had one episode of blood in stool on 12/11/21. None since. No nausea, vomiting or diarrhea. Appetite and taste is down but she is eating. Drinking is fine, but wine and coffee tastes bad. Some dry mouth but drinking at least 80-120cc of water everyday. No fevers, chills, cough, or shortness of breath. Updated Visit, December 04, 2021: [place] returns with [place] her daughter. Reviewed CT Abdomen / Pelvis. Bone scan was negative. Will proceed with treatment. Chaperoned exam notable for 3-4 cm right upper outer quadrant breast mass easily palpable. No palpable axillary LN's. Updated Visit, November 18 2021: [place] [facility] returns with her daughter [place] and has seen Dr. Mercedes and completed her MRI as well as CT Chest. Given the number of LN's involved, additional staging studies have been ordered to be completed including NM Bone scan and CT abdomen / Pelvis. Once these are completed and negative, we can proceed with planned neoadjuvant chemotherapy with up to 6 cycles of TC. Aside from being anxious, she is doing well. Initial Visit, October 21, 2021: Kiah Cortes presents today Hematology and Oncology evaluation. She is a 66 year old female who noted a mass on self breast exam in the right breast. 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 She's here with her daughter [place]. She was referred for medical oncology opinion regarding breast cancer. Will need to complete staging and anticipate lisa-adjuvant chemotherapy give peterson disease. FHX cancer: Daughter [place] - had cervical not ovarian Mother had lung cancer Another Daughter had lymphoma REVIEW OF SYSTEMS Per HPI and otherwise negative by full review of organ systems. ECOG PERFORMANCE STATUS: 0 PHYSICAL EXAMINATION: Vitals: BP 132/58 Pulse 58 Temp (Src) 97.1 (Temporal) Resp 16 Ht 5' 2.008 (1.58m) Wt 219 lb 12.8 oz (99.7kg) SpO2 95% BMI 40.19 kg/(m^2). Body surface area is 2.09 meters squared. Gen.: This is an age-appropriate patient in no acute distress. Head: Appears atraumatic with no visible lesions. Eyes: Pupils equally round and reactive to light, extraocular muscles are intact. Neck: Supple. Respiratory: Appears to be respiring comfortably. Neurologic: Nonfocal to gross visualization. Alert and oriented 3. Psychiatric: No evidence of inappropriate anxiety or depression. Skin: Visible areas of skin without rash, lesions, wounds or petechiae. ALLERGIES: ALLERGIES Allergen Reactions Lisinopril Unknown Seasonal Allergies Itching, Other: See Comments MEDICATIONS: multivitamin with minerals (HAIR,SKIN AND NAILS ORAL)^Take 2 tablets by mouth once daily.^Disp: ^Rfl: ondansetron (ZOFRAN) 8 mg tablet^Take 1 tablet by mouth every 8 hours as needed for nausea/vomiting.^Disp: 90 tablet^Rfl: 1 prochlorperazine (COMPAZINE) 10 mg tablet^Take 1 tablet by mouth every 6 hours as needed.^Disp: 100 tablet^Rfl: 1 loperamide (ANTI-DIARRHEAL) 2 mg cap(s)^Take 1 capsule by mouth four times daily as needed for diarrhea.^Disp: 100 capsule^Rfl: 1 anastrozole (ARIMIDEX) 1 mg tablet^Take 1 tablet by mouth once daily.^Disp: 30 tablet^Rfl: 1 celecoxib (CELEBREX) 100 mg capsule^Take 100 mg by mouth twice daily.^Disp: ^Rfl: albuterol HFA (PROVENTIL HFA, VENTOLIN HFA) 90 mcg/actuation inhaler^INHALE 2 PUFFS 4 TIMES PER DAY NEEDED FOR SHORTNESS OF BREATH OR WHEEZING^Disp: ^Rfl: atorvastatin (LIPITOR) 40 mg tablet^Take 40 mg by mouth once daily.^Disp: ^Rfl: loratadine (CLARITIN) 10 mg tablet^Take 10 mg by mouth once daily.^Disp: ^Rfl: metFORMIN (GLUCOPHAGE) 1,000 mg tablet^Metformin Active 1000 MG PO Every morning May 04, 2021 3:24pm^Disp: ^Rfl: carvedilol (COREG) 25 mg tablet^Take 25 mg by mouth twice daily.^Disp: ^Rfl: acetaminophen (TYLENOL) 325 mg tablet^Take 650 mg by mouth every 6 hours as needed.^Disp: ^Rfl: amLODIPine (NORVASC) 10 mg tablet^Take 10 mg by mouth once daily.^Disp: ^Rfl: levothyroxine sodium (LEVOTHYROXINE ORAL)^Take 50 mcg by mouth once daily.^Disp: ^Rfl: rOPINIRole (REQUIP) 0.25 mg tablet^Take 0.25 mg by mouth daily at bedtime.^Disp: ^Rfl: famciclovir (FAMVIR) 500 mg tablet^Take 1 tablet by mouth three times daily for 10 days.^Disp: 30 tablet^Rfl: 0 abemaciclib (VERZENIO) 150 mg tablet^Take 1 tablet (150 mg) by mouth twice daily.^Disp: 56 tablet^Rfl: 1 (Patient not taking: Reported on 10/05/2022) LABORATORY VALUES: WBC (k/uL) Date Value 09/20/2022 4.98 RBC (m/uL) Date Value 09/20/2022 3.91 Hemoglobin (g/dL) Date Value 09/20/2022 12.4 Hematocrit (%) Date Value 09/20/2022 37.2 MCV (fL) Date Value 09/20/2022 95.1 MCH (pg) Date Value 09/20/2022 31.7 MCHC (g/dL) Date Value 09/20/2022 33.3 RDW-CV (%) Date Value 09/20/2022 14.4 Platelet Count (k/uL) Date Value 09/20/2022 167 MPV (fL) Date Value 09/20/2022 10.0 Glucose (mg/dL) Date Value 09/20/2022 130 (H) BUN (mg/dL) Date Value 09/20/2022 24 (H) Creatinine (mg/dL) Date Value 09/20/2022 0.91 Sodium (mmol/L) Date Value 09/20/2022 140 Potassium (mmol/L) Date Value 09/20/2022 3.9 Chloride (mmol/L) Date Value 09/20/2022 107 (H) CO2 (mmol/L) Date Value 09/20/2022 27 Protein, Total (g/dL) Date Value 09/20/2022 6.9 Albumin (g/dL) Date Value 09/20/2022 4.2 Calcium, Total (mg/dL) Date Value 09/20/2022 10.0 Alkaline Phosphatase (U/L) Date Value 09/20/2022 101 Bilirubin, Total (mg/dL) Date Value 09/20/2022 0.4 AST (U/L) Date Value 09/20/2022 18 ALT (U/L) Date Value 09/20/2022 15 DIAGNOSIS: (B02.9) Herpes zoster without complication (primary encounter diagnosis) (C50.911, C77.3) Breast cancer metastasized to axillary lymph node, right (HCC) PATH: reviewed today on 12/14/21 Breast, right, at 12:00, 7 cm from the nipple, ultrasound-guided core biopsy ([id number], part A; 10/02/2021): ---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 ---Please see comment. Lymph node, right axillary tail, ultrasound-guided core biopsy ([id number], part B; 10/02/2021): ---Metastatic mammary carcinoma with signet ring features, measuring at least 13 mm in greatest dimension, likely representing a lymph node completely replaced by carcinoma. ---Please see comment. Right breast invasive carcinoma: ER: POSITIVE (100%, strong) HI: POSITIVE (100%, strong) HER2 IHC: NEGATIVE (0) Controls react as expected Right axillary tail metastasis: ER: POSITIVE (100%, strong) HI: POSITIVE (100%, strong) HER2 IHC: NEGATIVE (0) Controls react as expected IMAGING: Bone scan 11/27/21 No suspicious foci of activity. No scintigraphic evidence of osseous metastases. Likely degenerative/arthritic changes as described. CT abdomen and pelvis 11/20/21 . Nonspecific nodular thickening of the left adrenal gland. Consider interval follow-up. 2. Otherwise no evidence of intra-abdominal/intrapelvic metastases. 3. Subcentimeter left hepatic cyst. 4. Sigmoid colon diverticulosis without evidence of diverticulitis. 5. Nonspecific haziness of the mesenteric fat may represent edema or infectious/inflammatory etiologies. CT chest 10/30/21 1. Multiple enlarged right axillary lymph nodes, highly suspicious for neoplastic involvement. 2. A 0.3 cm right middle lobe pulmonary nodule is nonspecific. Continued attention on subsequent studies is suggested. PAST MEDICAL HISTORY Diagnosis Date Asthma Breast cancer (HCC) right breast DMII (diabetes mellitus, type 2) (HCC) 03/19/2022 Fibromyalgia HLD (hyperlipidemia) 03/19/2022 HTN (hypertension) Hypothyroidism 03/19/2022 Migraine Obesity Primary hypertension 03/19/2022 RLS (restless legs syndrome) 03/19/2022 PAST SURGICAL HISTORY Procedure Laterality Date APPENDECTOMY BREAST LUMPECTOMY HX Right 2022 BX OF BREAST; INCISIONAL Right COLONOSCOPY SCREENING LIGATE FALLOPIAN TUBE MASTECTOMY, PARTIAL Right 03/25/2022 PAST SURGICAL HISTORY OF Rt Shoulder PAST SURGICAL HISTORY OF Rt knee tendons PAST SURGICAL HISTORY OF Right shoulder tendons Social History Tobacco Use Smoking status: Never Passive exposure: Past Smokeless tobacco: Never Vaping Use Vaping Use: Never used Substance Use Topics Alcohol use: Not Currently Comment: 1 glass of wne a month Drug use: Never FAMILY HISTORY Problem Relation Age of Onset Cancer Mother lung Hypertension Mother Heart disease Father Hypertension Father Cancer Sister Cancer Brother brain Cervical Cancer Daughter Lymphoma Daughter Zack Nelliebryce Winston PA-C CC: Dr. Reece Mercedes documented in this encounter [facility] 10-05-2022 Note [facility] 10-05-2022 Nurse Note Pt reports the rash is on right shoulder back part, reported last week is still there and still sore, has needle-like pains in the area, occasional itching. Verzenio has been on hold since the end of last week. Loraine Booker MA documented in this encounter [facility] 10-04-2022 Miscellaneous Notes Spoke w/ Dr Dao. Instructs to have pt come in tomorrow to see either Dipti or Zack. Pt notified and verbalizes understanding. Zack: Pt will be in @ 1130. Miriam Nj RN Pt reports the rash reported last week is still there and still sore. Has needle-like pains in the area. Occasional itching. Verzenio has been on hold since the end of last week. Can we bring her in to be examined by an flatbed company driver tomorrow? Miriam Nj RN documented in this encounter [facility] 10-01-2022 Miscellaneous Notes Pt notified of recommendations and verbalizes understanding. Disposition: per Dr Dao, patient directed to: Manage at home. Provided instructions and will call back. Mary: Pt denies blistering during initial assessment. States her rash is not worse, but no better today. Still painful when she leans against it. Should she be seen? How long do you want her to hold the Verzenio? Miriam Nj RN Have her stop verzenio - hopefully rash is better.. Itchy> painful> pustular? Trying to know if it is Infection vs rxn. Please advise on message from yesterday. Thanks! Miriam Nj RN Pt started Verzenio on 09/22. Reports that she has developed a red, raised rash to beginning near her right axilla that wraps around to her right back. C/o itching, but also notes the site is tender to touch today. Denies blistering. Has been applying an anti-itch spray and Vaseline Intensive spray. What do you advise? Miriam Nj RN documented in this encounter [facility] 09-22-2022 Miscellaneous Notes For next cycle, [place] must use [facility]. Reuben Jett, LacyD, BCOP documented in this encounter [facility] 09-22-2022 Note [facility] 09-20-2022 Note [facility] 09-02-2022 Miscellaneous Notes Thanks! Reece I called to get an update post radiation therapy. [place] states she is doing well. She denies skin redness or swelling. She states her skin is intact and she continues to use Aquaphor prn. She denies questions or concerns at this time. She is aware of her follow up appt's with [facility]. Luanne Laughlin LPN documented in this encounter [facility] 08-30-2022 Instructions Narendra Dao MD - 08/30/2022 3:35 PM EDT RTC in 3 weeks Labs same day. Exam same day Start arimidex Plan to start Abemaciclib after 3 weeks. documented in this encounter [facility] 08-30-2022 Note [facility] 08-30-2022 History of Present illness Narrative Images from the original note were not included. NAME: Kiah Cortes [facility] NO.: [id number] DATE OF SERVICE: July 23, 2022 (Maddy) Some elements in this clinic note that are critical to medical decision making have been carefully reviewed and included from a prior clinic note dated: May 14, 2022 (Maddy) Referring Provider: Dr. Shaikh West Additional Clinicians involved in Kiah Cortes's care: Dr. Shahana Mercedes DIAGNOSIS: Right breast cancer ASSESSMENT: 67 year old woman with right breast lump diagnosed with Stage cIIA IDC ER/HI++, HER2(0) breast cancer cT2 cN1, cMx in need of consideration for neoadjuvant chemotherapy and resection following completion of chemotherapy. Patient started neoadjuvant Taxotere and cytoxan with GSF on 12/04/21. Tolerated well with minor side effects. After she left the office, labs indicate elevation in BUN and creatinine, likely consistent with dehydration, corrected with hydration. Pulmonary nodule--0.3cm RML nodule on CT chest, repeat imaging following treatment. Thickened L adrenal gland on CTs--consider repeat imaging following treatment. Pre-op Cts with concern for diverticulitis. Will folow with GI. S/p R0 resection with persisting disease following neoadjuvant therapy. Given high risk disease (6 nodes +), would treat in adjuvant setting according to [facility] E trial of Abemaciclib + AI PLAN: RTC in 3 weeks Labs same day. Exam same day Start arimidex Plan to start Abemaciclib after 3 weeks. HPI: CASE HISTORY: 08/02/2022 - finished RT. 05/24/2022 - Colonoscopy - sigmoid diverticulosis, otherwise normal 03/25/2022 Rt Breast Lumpectomy and AxLND - residual IDC with signet ring features and treatment effect. IDC grade 2, 22 mm, margins negative, ypT2,pN2a, ER+HI+, HER2 neg (0), right axilly content - 08/09 nodes involved with macro-metastatic disease. VANI in at least one LN. 02/26/2022 - CT CAP : right axillary LN, subtle subpleural RML nodular opacity and subtle groundglass opacities. Sigmoid colon thickening. 12/04/2021 - 02/12/2022 4 cycles Taxotere + Cytoxan neoadjuvant. 11/27/2021 - NM bone scan - negative 11/20/2021 - CT A/P - negative 11/10/2021 MRI Breasts: - Birads 6 - rt breast - 7cmfn @ 10:00 3.6x3.1x2.5, 3-[address], lft breast Birads2 10/30/2021 CT Chest: multiple rt axillary LN, 0.3 cm right mid-lobe nodule - non-specific. 10/02/2021 US & Diag mammography - Right breast 12 O'Clock, 7 cm from nipple - 2.9 x 2.5 cm mass - x IDC +Axillary LN. G1, ER/HI 90/80% HER2 (IHC) = 0 09/30/2021 right breast ultrasound: 2.9 x 2.5 x 2.3 cm mass 8 cm from the nipple at the 9 and 10 o'clock position of the right breast suspicious for malignancy. Suspicious lymph nodes in the right axilla noted. 08/2021 - noted right breast mass on self exam. Updated Visit, August 30, 2022: Just got back from visiting her son in [place] and saw her daughter from [place] and all of her grand kids. Had lots of bone aches with arimidex and so will restart single agent. After 3 weeks will start on verzenio. Updated Visit, July 23, 2022: Continues radiation for 10 more fractions. Otherwise doing well. Hands still troubling her with knitting. Otherwise doing well. Updated Visit, May 14, 2022: Still healing Chap ex (Reuben Padilla) - right breast - axillary scar with slight dehiscence - silver sulvidene in place. Radiation is unable to start yet. Updated Visit, April 02, 2022: [place] returns having had her resection last week and soaping machine back tender with drains in place. We will need to discuss adjuvant therapy in more depth as she had fairly significant persistent disease following resection in the resected specimen. I would presume that she fits along side the patient enrolled in the [place] [facility] trial of abemaciclib + AI in such women that had neoadjuvant chemotherapy. We will discuss this more in depth when patient can spend time focusing on discussion and not feeling so uncomfortable. Abemaciclib plus ET demonstrated superior IDFS versus ET alone (P = .01; hazard ratio, 0.75; 95% CI, 0.60 to 0.93), with 2-year IDFS rates of 92.2% versus 88.7%, respectively. She had concern for diverticulitis on CT abdomen prior to surgery and will follow with GI for colonoscopy. Updated Visit, February 12, 2022: Kiah Cortes returns for follow-up and her final treatment with Taxotere and Cytoxan. She is tolerating treatment well. She has some sinus drainage and has been coughing this morning. She denies fevers, chills, night sweats and signs/symptoms of infection. No bleeding or abnormal bruising. Her biggest side effect from treatment is fatigue. Otherwise, no significant side effects. She wishes to proceed with treatment as planned. Updated Visit, February 05, 2022: Here with [place] hands improved Port flush today made her feel dizzy She's more fatigued than expected Looks cristina BP is notably decreased Renal function has dropped acutely. Updated Visit, January 15, 2022: Kiah Cortes here for cycle 3 Taxotere and Cytoxan. Since her last visit she has noticed some peeling of both of her hands. She denies any redness or pain to her hands. She has been keeping her hands well lotion. She also had right heel pain that lasted 2 to 3 days and she described it like stepping on glass or needles. She has had some fatigue. She denies fevers, chills, night sweats and signs/symptoms of infection. No bleeding or abnormal bruising. Overall, she is doing well and wishes to proceed with treatment as planned. 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 Updated Visit, December 14, 2021: [place]l returns for jagdish counts and follow up after starting neoadjuvant Taxotere and cyclophosphamide with GFS on 12/04/21. She does report having a headache for 2 days following treatment that was relieved with tylenol. Did have some constipation and hard stools. Had one episode of blood in stool on 12/11/21. None since. No nausea, vomiting or diarrhea. Appetite and taste is down but she is eating. Drinking is fine, but wine and coffee tastes bad. Some dry mouth but drinking at least 80-120cc of water everyday. No fevers, chills, cough, or shortness of breath. Updated Visit, December 04, 2021: [place] returns with [place] her daughter. Reviewed CT Abdomen / Pelvis. Bone scan was negative. Will proceed with treatment. Chaperoned exam notable for 3-4 cm right upper outer quadrant breast mass easily palpable. No palpable axillary LN's. Updated Visit, November 18 2021: [place] returns with her daughter [place] and has seen Dr. Mercedes and completed her MRI as well as CT Chest. Given the number of LN's involved, additional staging studies have been ordered to be completed including NM Bone scan and CT abdomen / Pelvis. Once these are completed and negative, we can proceed with planned neoadjuvant chemotherapy with up to 6 cycles of TC. Aside from being anxious, she is doing well. Initial Visit, October 21, 2021: Kiah Cortes presents today Hematology and Oncology evaluation. She is a 66 year old female who noted a mass on self breast exam in the right breast. 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 She's here with her daughter [place]. She was referred for medical oncology opinion regarding breast cancer. Will need to complete staging and anticipate lisa-adjuvant chemotherapy give peterson disease. FHX cancer: Daughter [place] - had cervical not ovarian Mother had lung cancer Another Daughter had lymphoma REVIEW OF SYSTEMS Per HPI and otherwise negative by full review of organ systems. ECOG PERFORMANCE STATUS: 0 PHYSICAL EXAMINATION: Vitals: BP 130/63 Pulse 70 Temp (Src) 97.3 (Temporal) Resp 16 Ht 5' 2.008 (1.58m) Wt 224 lb (101.6kg) SpO2 96% BMI 40.96 kg/(m^2). Body surface area is 2.11 meters squared.Exam limited to gross visualization where appropriate. Gen.: This is an age-appropriate patient in no acute distress. Head: Appears atraumatic with no visible lesions. Eyes: Pupils equally round and reactive to light, extraocular muscles are intact. Neck: Supple. Respiratory: Appears to be respiring comfortably. Neurologic: Nonfocal to gross visualization. Alert and oriented 3. Psychiatric: No evidence of inappropriate anxiety or depression. Skin: Visible areas of skin without rash, lesions, wounds or petechiae. Side Door Man breast exam noted in HPI 05/14/2022 ALLERGIES: ALLERGIES Allergen Reactions Lisinopril Unknown Seasonal Allergies Itching, Other: See Comments MEDICATIONS: celecoxib (CELEBREX) 100 mg capsule^^Disp: ^Rfl: albuterol HFA (PROVENTIL HFA, VENTOLIN HFA) 90 mcg/actuation inhaler^INHALE 2 PUFFS 4 TIMES PER DAY NEEDED FOR SHORTNESS OF BREATH OR WHEEZING^Disp: ^Rfl: atorvastatin (LIPITOR) 40 mg tablet^Take 40 mg by mouth once daily.^Disp: ^Rfl: loratadine (CLARITIN) 10 mg tablet^Take 10 mg by mouth once daily.^Disp: ^Rfl: metFORMIN (GLUCOPHAGE) 1,000 mg tablet^Metformin Active 1000 MG PO Every morning May 04, 2021 3:24pm^Disp: ^Rfl: carvedilol (COREG) 25 mg tablet^Take 25 mg by mouth twice daily.^Disp: ^Rfl: acetaminophen (TYLENOL) 325 mg tablet^Take 650 mg by mouth every 6 hours as needed.^Disp: ^Rfl: amLODIPine (NORVASC) 10 mg tablet^Take 10 mg by mouth once daily.^Disp: ^Rfl: levothyroxine sodium (LEVOTHYROXINE ORAL)^Take 50 mcg by mouth once daily.^Disp: ^Rfl: rOPINIRole (REQUIP) 0.25 mg tablet^Take 0.25 mg by mouth daily at bedtime.^Disp: ^Rfl: anastrozole (ARIMIDEX) 1 mg tablet^Take 1 tablet by mouth once daily.^Disp: 30 tablet^Rfl: 1 LABORATORY VALUES: WBC (k/uL) Date Value 08/30/2022 3.54 (L) RBC (m/uL) Date Value 08/30/2022 4.13 Hemoglobin (g/dL) Date Value 08/30/2022 12.9 Hematocrit (%) Date Value 08/30/2022 38.6 MCV (fL) Date Value 08/30/2022 93.5 MCH (pg) Date Value 08/30/2022 31.2 MCHC (g/dL) Date Value 08/30/2022 33.4 RDW-CV (%) Date Value 08/30/2022 14.6 Platelet Count (k/uL) Date Value 08/30/2022 192 MPV (fL) Date Value 08/30/2022 9.8 Glucose (mg/dL) Date Value 08/30/2022 160 (H) BUN (mg/dL) Date Value 08/30/2022 23 (H) Creatinine (mg/dL) Date Value 08/30/2022 0.99 (H) Sodium (mmol/L) Date Value 08/30/2022 140 Potassium (mmol/L) Date Value 08/30/2022 3.9 Chloride (mmol/L) Date Value 08/30/2022 103 CO2 (mmol/L) Date Value 08/30/2022 27 Protein, Total (g/dL) Date Value 08/30/2022 7.2 Albumin (g/dL) Date Value 08/30/2022 4.3 Calcium, Total (mg/dL) Date Value 08/30/2022 9.9 Alkaline Phosphatase (U/L) Date Value 08/30/2022 115 Bilirubin, Total (mg/dL) Date Value 08/30/2022 0.3 AST (U/L) Date Value 08/30/2022 16 ALT (U/L) Date Value 08/30/2022 15 DIAGNOSIS: (C50.411, Z17.0) Malignant neoplasm of upper-outer quadrant of right breast in female, estrogen receptor positive (HCC) (primary encounter diagnosis) (C50.911, C77.3) Breast cancer metastasized to axillary lymph node, right (HCC) PATH: reviewed today on 12/14/21 Breast, right, at 12:00, 7 cm from the nipple, ultrasound-guided core biopsy ([id number], part A; 10/02/2021): ---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 ---Please see comment. Lymph node, right axillary tail, ultrasound-guided core biopsy ([id number], part B; 10/02/2021): ---Metastatic mammary carcinoma with signet ring features, measuring at least 13 mm in greatest dimension, likely representing a lymph node completely replaced by carcinoma. ---Please see comment. Right breast invasive carcinoma: ER: POSITIVE (100%, strong) HI: POSITIVE (100%, strong) HER2 IHC: NEGATIVE (0) Controls react as expected Right axillary tail metastasis: ER: POSITIVE (100%, strong) HI: POSITIVE (100%, strong) HER2 IHC: NEGATIVE (0) Controls react as expected IMAGING: Bone scan 11/27/21 No suspicious foci of activity. No scintigraphic evidence of osseous metastases. Likely degenerative/arthritic changes as described. CT abdomen and pelvis 11/20/21 . Nonspecific nodular thickening of the left adrenal gland. Consider interval follow-up. 2. Otherwise no evidence of intra-abdominal/intrapelvic metastases. 3. Subcentimeter left hepatic cyst. 4. Sigmoid colon diverticulosis without evidence of diverticulitis. 5. Nonspecific haziness of the mesenteric fat may represent edema or infectious/inflammatory etiologies. CT chest 10/30/21 1. Multiple enlarged right axillary lymph nodes, highly suspicious for neoplastic involvement. 2. A 0.3 cm right middle lobe pulmonary nodule is nonspecific. Continued attention on subsequent studies is suggested. PAST MEDICAL HISTORY Diagnosis Date Asthma Breast cancer (HCC) right breast DMII (diabetes mellitus, type 2) (HCC) 03/19/2022 Fibromyalgia HLD (hyperlipidemia) 03/19/2022 HTN (hypertension) Hypothyroidism 03/19/2022 Migraine Obesity Primary hypertension 03/19/2022 RLS (restless legs syndrome) 03/19/2022 PAST SURGICAL HISTORY Procedure Laterality Date APPENDECTOMY BREAST LUMPECTOMY HX Right 2022 BX OF BREAST; INCISIONAL Right COLONOSCOPY SCREENING LIGATE FALLOPIAN TUBE MASTECTOMY, PARTIAL Right 03/25/2022 PAST SURGICAL HISTORY OF Rt Shoulder PAST SURGICAL HISTORY OF Rt knee tendons PAST SURGICAL HISTORY OF Right shoulder tendons Social History Tobacco Use Smoking status: Never Passive exposure: Past Smokeless tobacco: Never Vaping Use Vaping Use: Never used Substance Use Topics Alcohol use: Not Currently Comment: 1 glass of wne a month Drug use: Never FAMILY HISTORY Problem Relation Age of Onset Cancer Mother lung Hypertension Mother Heart disease Father Hypertension Father Cancer Sister Cancer Brother brain Cervical Cancer Daughter Lymphoma Daughter I spent a total of 30 minutes on the date of the service which included preparing to see the patient, [id number] patient care, completing clinical documentation, obtaining and/or reviewing separately obtained history, performing a medically appropriate examination, counseling and educating the patient/family/caregiver, ordering medications, tests, or procedures, and independently interpreting results (not separately reported). Narendra Dao MD, CPE Hematology and Oncology Services Provided at: [place], [place] CC: Dr. Reece Mercedes documented in this encounter [facility] 08-26-2022 Note [facility] 08-26-2022 History of Present illness Narrative SOCIAL WORK FOLLOW UP NOTE: CANCER CENTER Date of service:08/26/22 TOPICS ADDRESSED: community resources PLAN: Continue follow up as needed Assigned SW listed in Care Team tab: Yes SW completed and faxed a mileage reimbursement form on the Patient's behalf to Cancer Services for the month of July 2022. STEPHY Kitchen documented in this encounter [facility] 08-12-2022 Miscellaneous Notes This encounter was opened in error. documented in this encounter [facility] 08-12-2022 Note [facility] 08-12-2022 History of Present illness Narrative Radiation Oncology - Follow Up Note PATIENT NAME: Kiah Cortes PATIENT DIAGNOSIS/PATIENT IDENTIFICATION: Ms. Cortes is a 67-year-old woman diagnosed with [id number] IDC of the right breast, ER/HI positive HER2 negative status post neoadjuvant chemotherapy under the care of Dr. Dao consisting of TC x4c completing on 02/12/2022 followed by right breast wide local excision and axillary lymph node dissection with Dr. Mercedes on 03/25/2022 showing residual [id number] disease. Pathology described a residual 2.2 cm of intermediate grade IDC with negative margins and 6 of 12 lymph nodes positive for metastatic disease with largest focus of 3.3 cm with extranodal extension. She completed a course of postoperative radiation therapy to the right breast and regional lymph nodes on 08/02/2022 (6000 cGy delivered in 30 fractions). Ms. Cortes returns to the radiation medicine clinic today for a skin check approximately 10 days out from the completion of her radiation treatments. She reports doing well in the interim with healing of her skin and no progression to desquamation. She continues using a moisturizer. Examination today shows expected skin irritation with no skin breakdown. The axillary incision continues to remain intact no signs of dehiscence or drainage. I will plan to see her back in approximately 6 months after her mammogram. The patient is aware to contact the clinic in the interim should any questions or concerns arise. Thank you for allowing us to participate in the care of this patient. Signed by: Reece Leach MD This document has been created with the use of voice recognition technology. It may contain inaccuracies, misspellings, inaccurate syntax or inappropriate word context that are a result of the inadequacies/shortcomings of said technology/software. documented in this encounter [facility] 08-05-2022 Miscellaneous Notes Call placed to pt to check status post XRT. She states she is doing better. The area is not bleeding anymore. She is using aquaphor and nonstick pads and getting as much air to the area as possible. She has been staying indoors and feels everything is improving. She will let us know if this changes or if she has questions/concerns. Hermila Baron RN documented in this encounter [facility] 08-02-2022 History of Present illness Narrative [facility] Radiation Oncology Department RADIATION ONCOLOGY - COMPLETION NOTE PATIENT: KIAH CORTES: 1955 DATES OF TREATMENT: 06/21/22-08/02/22 DIAGNOSIS: Ms. Cortes is a 67-year-old woman diagnosed with [id number] IDC of the right breast, ER/HI positive HER2 negative status post neoadjuvant chemotherapy under the care of Dr. Dao consisting of TC x4c completing on 02/12/2022 followed by right breast wide local excision and axillary lymph node dissection with Dr. Mercedes on 03/25/2022 showing residual [id number] disease. Pathology described a residual 2.2 cm of intermediate grade IDC with negative margins and 6 of 12 lymph nodes positive for metastatic disease with largest focus of 3.3 cm with extranodal extension. AREA TREATED: Right Breast and Regional Lymph Nodes DELIVERED DOSE: Right Breast and Axilla 5,000 cGy in 25 fractions, 2 Malone, 3D Conformal, 10MV with weekly ports DELIVERED DOSE: Right Supraclav and Axilla 5,000 cGy in 25 fractions, 2 Malone, 3D Conformal, 15MV with weekly ports DELIVERED DOSE: Right Breast Lumpectomy Cavity Boost 1,000 cGy in 5 fractions, 2 Malone, 3D Conformal, 10MV with daily CBCT guidance TOTAL: 6,000 cGy in 30 fractions ELAPSED TIME: 42 days. CLINICAL SUMMARY: The start of post-operative radiation therapy was delayed to allow for healing of axillary incision dehiscence during which time she started her endocrine therapy with arimidex. The patient tolerated course of radiation therapy to the right breast and regional lymph nodes well overall with mild treatment-related fatigue and dermatitis as expected. No other significant issues. Her axillary incision remained healed through treatment. The patient was able to complete treatment as intended without break interruption or modification of prescription plan. The patient will be seen again in 2 weeks for postradiation follow-up/skin check and follow with Dr. Dao and Dr. Mercedes for continued evaluation/surveillance and systemic therapy recommendations. Staff Physician Reece Leach M.D. / JIM 32:24 AM Electronically Signed cc: Narendra Dao MD ([facility]) Shahana Mercedes MD ([facility]) Nate Bobby MD [address] [facility] [id number] [address] documented in this encounter [facility] 07-29-2022 History of Present illness Narrative SOCIAL WORK FOLLOW UP NOTE: CANCER CENTER Date of service:07/29/22 TOPICS ADDRESSED: community resources PLAN: Continue follow up as needed Assigned SW listed in Care Team tab: Yes SW completed and faxed a mileage reimbursement form on the Patient's behalf to Cancer Services for the month of June 2022. STEPHY Kitchen documented in this encounter [facility] 07-29-2022 History of Present illness Narrative RADIATION ONCOLOGY- ON TREATMENT REVIEW (OTR) NOTE PATIENT NAME: Kiah Cortes PATIENT DIAGNOSIS: Ms. Cortes is a 67-year-old woman diagnosed with [id number] IDC of the right breast, ER/HI positive HER2 negative status post neoadjuvant chemotherapy under the care of Dr. Dao consisting of TC x4c planning on 02/12/2022 followed by right breast wide local excision and axillary lymph node dissection with Dr. Mercedes on 03/25/2022 showing residual [id number] disease. Pathology described a residual 2.2 cm of intermediate grade IDC with negative margins and 6 of 12 lymph nodes positive for metastatic disease with largest focus of 3.3 cm with extranodal extension. She started endocrine therapy with anastrozole as start of radiation was delayed to allow for adequate wound healing. COURSE: post-operative Area Treated: Right breast and regional lymph nodes Current dose: 5600 cGy in 28 fx Planned dose: 6000 cGy in 30 fx SUBJECTIVE: Tolerating XRT well and notes discomfort in the breast which she is managing with Tylenol/Aleve as well as increased erythema and mild skin breakdown in the area of the axilla in the inframammary fold. She does use a moisturizer 3-4 times a day. She notes intact range of motion with no signs of lymphedema. She endorses fatigue with fair appetite and hydration. PHYSICAL EXAM: KPS: 80 General Appearance: Alert and oriented. No acute distress. Skin erythema/hyperpigmentation: Moderate Desquamation: Minimal, dry; in the inframammary fold and axilla. TOXICITY ASSESSMENT (CTC v4.0): Fatigue: grade 1 - Fatigue relieved by rest Radiation dermatitis: grade 1 - Faint erythema or dry desquamation Treatment chart checked: Yes Patient treatment site reviewed and verified:Yes Port films reviewed and current:Yes Medications started: None ASSESSMENT/PLAN: Clinically stable. Toxicity within expected parameters. Continue radiation treatment as planned. Signed by: Reece Leach MD documented in this encounter [facility] 07-23-2022 Instructions Narendra Dao MD - 07/23/2022 10:20 AM EDT RTC in 5 weeks Labs same day. Plan to start back on arimidex and also on Abemaciclib documented in this encounter [facility] 07-23-2022 History of Present illness Narrative Images from the original note were not included. NAME: Kiah Cortes CLINIC NO.: [id number] DATE OF SERVICE: July 23, 2022 (Maddy) Some elements in this clinic note that are critical to medical decision making have been carefully reviewed and included from a prior clinic note dated: May 14, 2022 (Maddy) Referring Provider: Dr. Shaikh West Additional Clinicians involved in Kiah Cortes's care: Dr. Shahana Mercedes DIAGNOSIS: Right breast cancer ASSESSMENT: 67 year old woman with right breast lump diagnosed with Stage cIIA IDC ER/HI++, HER2(0) breast cancer cT2 cN1, cMx in need of consideration for neoadjuvant chemotherapy and resection following completion of chemotherapy. Patient started neoadjuvant Taxotere and cytoxan with GSF on 12/04/21. Tolerated well with minor side effects. After she left the office, labs indicate elevation in BUN and creatinine, likely consistent with dehydration, corrected with hydration. Pulmonary nodule--0.3cm RML nodule on CT chest, repeat imaging following treatment. Thickened L adrenal gland on CTs--consider repeat imaging following treatment. Pre-op Cts with concern for diverticulitis. Will folow with GI. S/p R0 resection with persisting disease following neoadjuvant therapy. Given high risk disease (6 nodes +), would treat in adjuvant setting according to [place] trial of Abemaciclib + AI PLAN: RTC in 5 weeks Labs same day. Plan to start back on arimidex and also on Abemaciclib HPI: CASE HISTORY: 05/24/2022 - Colonoscopy - sigmoid diverticulosis, otherwise normal 03/25/2022 Rt Breast Lumpectomy and AxLND - residual IDC with signet ring features and treatment effect. IDC grade 2, 22 mm, margins negative, ypT2,pN2a, ER+HI+, HER2 neg (0), right axilly content - 08/09 nodes involved with macro-metastatic disease. VANI in at least one LN. 02/26/2022 - CT CAP : right axillary LN, subtle subpleural RML nodular opacity and subtle groundglass opacities. Sigmoid colon thickening. 12/04/2021 - 02/12/2022 4 cycles Taxotere + Cytoxan neoadjuvant. 11/27/2021 - [place] bone scan - negative 11/20/2021 - CT A/P - negative 11/10/2021 MRI Breasts: - Birads 6 - rt breast - 7cmfn @ 10:00 3.6x3.1x2.5, 3-[address], lft breast Birads2 10/30/2021 CT Chest: multiple rt axillary LN, 0.3 cm right mid-lobe nodule - non-specific. 10/02/2021 US & Diag mammography - Right breast 12 O'Clock, 7 cm from nipple - 2.9 x 2.5 cm mass - x IDC +Axillary LN. G1, ER/HI 90/80% HER2 ([facility]) = 0 09/30/2021 right breast ultrasound: 2.9 x 2.5 x 2.3 cm mass 8 cm from the nipple at the 9 and 10 o'clock position of the right breast suspicious for malignancy. Suspicious lymph nodes in the right axilla noted. 08/2021 - noted right breast mass on self exam. Updated Visit, July 23, 2022: Continues radiation for 10 more fractions. Otherwise doing well. Hands still troubling her with knitting. Otherwise doing well. Updated Visit, May 14, 2022: Still healing Chap ex (Reuben Padilla) - right breast - axillary scar with slight dehiscence - silver sulvidene in place. Radiation is unable to start yet. Updated Visit, April 02, 2022: [place] returns having had her resection last week and soaping machine back tender with drains in place. We will need to discuss adjuvant therapy in more depth as she had fairly significant persistent disease following resection in the resected specimen. I would presume that she fits along side the patient enrolled in the [place] E trial of abemaciclib + AI in such women that had neoadjuvant chemotherapy. We will discuss this more in depth when patient can spend time focusing on discussion and not feeling so uncomfortable. Abemaciclib plus ET demonstrated superior IDFS versus ET alone (P = .01; hazard ratio, 0.75; 95% CI, 0.60 to 0.93), with 2-year IDFS rates of 92.2% versus 88.7%, respectively. She had concern for diverticulitis on CT abdomen prior to surgery and will follow with GI for colonoscopy. Updated Visit, February 12, 2022: Kiah Cortes returns for follow-up and her final treatment with Taxotere and Cytoxan. She is tolerating treatment well. She has some sinus drainage and has been coughing this morning. She denies fevers, chills, night sweats and signs/symptoms of infection. No bleeding or abnormal bruising. Her biggest side effect from treatment is fatigue. Otherwise, no significant side effects. She wishes to proceed with treatment as planned. Updated Visit, February 05, 2022: Here with [place] hands improved Port flush today made her feel dizzy She's more fatigued than expected Looks cristina BP is notably decreased Renal function has dropped acutely. Updated Visit, January 15, 2022: Kiah Cortes here for cycle 3 Taxotere and Cytoxan. Since her last visit she has noticed some peeling of both of her hands. She denies any redness or pain to her hands. She has been keeping her hands well lotion. She also had right heel pain that lasted 2 to 3 days and she described it like stepping on glass or needles. She has had some fatigue. She denies fevers, chills, night sweats and signs/symptoms of infection. No bleeding or abnormal bruising. Overall, she is doing well and wishes to proceed with treatment as planned. 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 Updated Visit, December 14, 2021: [place] returns for jagdish counts and follow up after starting neoadjuvant Taxotere and cyclophosphamide with GFS on 12/04/21. She does report having a headache for 2 days following treatment that was relieved with tylenol. Did have some constipation and hard stools. Had one episode of blood in stool on 12/11/21. None since. No nausea, vomiting or diarrhea. Appetite and taste is down but she is eating. Drinking is fine, but wine and coffee tastes bad. Some dry mouth but drinking at least 80-120cc of water everyday. No fevers, chills, cough, or shortness of breath. Updated Visit, December 04, 2021: [place] returns with [place] her daughter. Reviewed CT Abdomen / Pelvis. Bone scan was negative. Will proceed with treatment. Chaperoned exam notable for 3-4 cm right upper outer quadrant breast mass easily palpable. No palpable axillary LN's. Updated Visit, November 18 2021: [place] returns with her daughter [place] and has seen Dr. Mercedes and completed her MRI as well as CT Chest. Given the number of LN's involved, additional staging studies have been ordered to be completed including NM Bone scan and CT abdomen / Pelvis. Once these are completed and negative, we can proceed with planned neoadjuvant chemotherapy with up to 6 cycles of TC. Aside from being anxious, she is doing well. Initial Visit, October 21, 2021: Kiah Cortes presents today Hematology and Oncology evaluation. She is a 66 year old female who noted a mass on self breast exam in the right breast. 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 She's here with her daughter [place]. She was referred for medical oncology opinion regarding breast cancer. Will need to complete staging and anticipate lisa-adjuvant chemotherapy give peterson disease. FHX cancer: Daughter [place] - had cervical not ovarian Mother had lung cancer Another Daughter had lymphoma REVIEW OF SYSTEMS Per HPI and otherwise negative by full review of organ systems. ECOG PERFORMANCE STATUS: 0 PHYSICAL EXAMINATION: Vitals: BP 133/72 Pulse 58 Temp (Src) 97.5 (Temporal) Resp 16 Ht 5' 2.008 (1.58m) Wt 223 lb 3.2 oz (101.2kg) SpO2 96% BMI 40.81 kg/(m^2). Body surface area is 2.1 meters squared.Exam limited to gross visualization where appropriate. Gen.: This is an age-appropriate patient in no acute distress. Head: Appears atraumatic with no visible lesions. Eyes: Pupils equally round and reactive to light, extraocular muscles are intact. Neck: Supple. Respiratory: Appears to be respiring comfortably. Neurologic: Nonfocal to gross visualization. Alert and oriented 3. Psychiatric: No evidence of inappropriate anxiety or depression. Skin: Visible areas of skin without rash, lesions, wounds or petechiae. Side Door Man breast exam noted in HPI 05/14/2022 ALLERGIES: ALLERGIES Allergen Reactions Lisinopril Unknown Seasonal Allergies Itching, Other: See Comments MEDICATIONS: celecoxib (CELEBREX) 100 mg capsule^^Disp: ^Rfl: diphenhydrAMINE 12.5 mg/5 mL lidocaine visc 2% MAALOX 200-200-20 mg/5 mL oral liquid 1:1:1 (CPD)^Take 5-10 mL by mouth and swallow (allowing to coat the back of the throat) 5-6 times a day as needed for discomfort including before meals and before bedtime^Disp: 360 mL^Rfl: 1 nystatin (MYCOSTATIN) powder^Apply to affected area 2-3 times a day until resolved.^Disp: 60 g^Rfl: 1 albuterol HFA (PROVENTIL HFA, VENTOLIN HFA) 90 mcg/actuation inhaler^INHALE 2 PUFFS 4 TIMES PER DAY NEEDED FOR SHORTNESS OF BREATH OR WHEEZING^Disp: ^Rfl: atorvastatin (LIPITOR) 40 mg tablet^Take 40 mg by mouth once daily.^Disp: ^Rfl: loratadine (CLARITIN) 10 mg tablet^Take 10 mg by mouth once daily.^Disp: ^Rfl: metFORMIN (GLUCOPHAGE) 1,000 mg tablet^Metformin Active 1000 MG PO Every morning May 04, 2021 3:24pm^Disp: ^Rfl: carvedilol (COREG) 25 mg tablet^Take 25 mg by mouth twice daily.^Disp: ^Rfl: acetaminophen (TYLENOL) 325 mg tablet^Take 650 mg by mouth every 6 hours as needed.^Disp: ^Rfl: amLODIPine (NORVASC) 10 mg tablet^Take 10 mg by mouth once daily.^Disp: ^Rfl: levothyroxine sodium (LEVOTHYROXINE ORAL)^Take 50 mcg by mouth once daily.^Disp: ^Rfl: rOPINIRole (REQUIP) 0.25 mg tablet^Take 0.25 mg by mouth daily at bedtime.^Disp: ^Rfl: anastrozole (ARIMIDEX) 1 mg tablet^TAKE 1 TABLET BY MOUTH EVERY DAY^Disp: 30 tablet^Rfl: 1 ondansetron (ZOFRAN) 8 mg tablet^Take 1 tablet by mouth every 8 hours as needed for nausea/vomiting.^Disp: 90 tablet^Rfl: 1 prochlorperazine (COMPAZINE) 10 mg tablet^Take 1 tablet by mouth every 6 hours as needed.^Disp: 100 tablet^Rfl: 1 LABORATORY VALUES: WBC (k/uL) Date Value 07/23/2022 4.08 RBC (m/uL) Date Value 07/23/2022 4.11 Hemoglobin (g/dL) Date Value 07/23/2022 12.4 Hematocrit (%) Date Value 07/23/2022 37.6 MCV (fL) Date Value 07/23/2022 91.5 MCH (pg) Date Value 07/23/2022 30.2 MCHC (g/dL) Date Value 07/23/2022 33.0 RDW-CV (%) Date Value 07/23/2022 15.6 (H) Platelet Count (k/uL) Date Value 07/23/2022 155 MPV (fL) Date Value 07/23/2022 10.0 Glucose (mg/dL) Date Value 07/23/2022 170 (H) BUN (mg/dL) Date Value 07/23/2022 16 Creatinine (mg/dL) Date Value 07/23/2022 0.74 Sodium (mmol/L) Date Value 07/23/2022 140 Potassium (mmol/L) Date Value 07/23/2022 4.0 Chloride (mmol/L) Date Value 07/23/2022 105 CO2 (mmol/L) Date Value 07/23/2022 24 Protein, Total (g/dL) Date Value 07/23/2022 6.7 Albumin (g/dL) Date Value 07/23/2022 4.0 Calcium, Total (mg/dL) Date Value 07/23/2022 9.8 Alkaline Phosphatase (U/L) Date Value 07/23/2022 105 Bilirubin, Total (mg/dL) Date Value 07/23/2022 0.4 AST (U/L) Date Value 07/23/2022 13 ALT (U/L) Date Value 07/23/2022 10 DIAGNOSIS: (F33.1) Major depressive disorder, recurrent episode, moderate (HCC) (primary encounter diagnosis) (E66.01) Obesity, Class III, BMI 40-49.9 (morbid obesity) (HCC) PATH: reviewed today on 12/14/21 Breast, right, at 12:00, 7 cm from the nipple, ultrasound-guided core biopsy ([id number], part A; 10/02/2021): ---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 ---Please see comment. Lymph node, right axillary tail, ultrasound-guided core biopsy ([id number], part B; 10/02/2021): ---Metastatic mammary carcinoma with signet ring features, measuring at least 13 mm in greatest dimension, likely representing a lymph node completely replaced by carcinoma. ---Please see comment. Right breast invasive carcinoma: ER: POSITIVE (100%, strong) HI: POSITIVE (100%, strong) HER2 IHC: NEGATIVE (0) Controls react as expected Right axillary tail metastasis: ER: POSITIVE (100%, strong) HI: POSITIVE (100%, strong) HER2 IHC: NEGATIVE (0) Controls react as expected IMAGING: Bone scan 11/27/21 No suspicious foci of activity. No scintigraphic evidence of osseous metastases. Likely degenerative/arthritic changes as described. CT abdomen and pelvis 11/20/21 . Nonspecific nodular thickening of the left adrenal gland. Consider interval follow-up. 2. Otherwise no evidence of intra-abdominal/intrapelvic metastases. 3. Subcentimeter left hepatic cyst. 4. Sigmoid colon diverticulosis without evidence of diverticulitis. 5. Nonspecific haziness of the mesenteric fat may represent edema or infectious/inflammatory etiologies. CT chest 10/30/21 1. Multiple enlarged right axillary lymph nodes, highly suspicious for neoplastic involvement. 2. A 0.3 cm right middle lobe pulmonary nodule is nonspecific. Continued attention on subsequent studies is suggested. PAST MEDICAL HISTORY Diagnosis Date Asthma Breast cancer (HCC) right breast DMII (diabetes mellitus, type 2) (HCC) 03/19/2022 Fibromyalgia HLD (hyperlipidemia) 03/19/2022 HTN (hypertension) Hypothyroidism 03/19/2022 Migraine Obesity Primary hypertension 03/19/2022 RLS (restless legs syndrome) 03/19/2022 PAST SURGICAL HISTORY Procedure Laterality Date APPENDECTOMY BREAST LUMPECTOMY HX Right 2022 BX OF BREAST; INCISIONAL Right COLONOSCOPY SCREENING LIGATE FALLOPIAN TUBE MASTECTOMY, PARTIAL Right 03/25/2022 PAST SURGICAL HISTORY OF Rt Shoulder PAST SURGICAL HISTORY OF Rt knee tendons PAST SURGICAL HISTORY OF Right shoulder tendons Social History Tobacco Use Smoking status: Never Passive exposure: Past Smokeless tobacco: Never Vaping Use Vaping Use: Never used Substance Use Topics Alcohol use: Not Currently Comment: 1 glass of wne a month Drug use: Never FAMILY HISTORY Problem Relation Age of Onset Cancer Mother lung Hypertension Mother Heart disease Father Hypertension Father Cancer Sister Cancer Brother brain Cervical Cancer Daughter Lymphoma Daughter I spent a total of 20 minutes on the date of the service which included preparing to see the patient, [id number] patient care, completing clinical documentation, obtaining and/or reviewing separately obtained history, performing a medically appropriate examination, counseling and educating the patient/family/caregiver, ordering medications, tests, or procedures, and independently interpreting results (not separately reported). Narendra Dao MD, CPE Hematology and Oncology Services Provided at: [place], [place] CC: Dr. Reece Mercedes documented in this encounter [facility] 07-14-2022 History of Present illness Narrative RADIATION ONCOLOGY- ON TREATMENT REVIEW (OTR) NOTE PATIENT NAME: Kiah Cortes PATIENT DIAGNOSIS: Ms. Cortes is a 67-year-old woman diagnosed with [id number] IDC of the right breast, ER/HI positive HER2 negative status post neoadjuvant chemotherapy under the care of Dr. Dao consisting of TC x4c planning on 02/12/2022 followed by right breast wide local excision and axillary lymph node dissection with Dr. Mercedes on 03/25/2022 showing residual [id number] disease. Pathology described a residual 2.2 cm of intermediate grade IDC with negative margins and 6 of 12 lymph nodes positive for metastatic disease with largest focus of 3.3 cm with extranodal extension. She started endocrine therapy with anastrozole as start of radiation was delayed to allow for adequate wound healing. COURSE: post-operative Area Treated: Right breast and regional lymph nodes Current dose: 3600 cGy in 18 fx Planned dose: 6000 cGy in 30 fx SUBJECTIVE: Tolerating surgery well and denies any pain/discomfort in the breast/axilla but does note a sore throat which is improved with the use of BMX. She notes mild skin pinkness without breakdown and uses a moisturizer twice a day with intact range of motion. Her axillary incision continues to remain healed. She is using nystatin in the inframammary fold and does endorse fatigue with stable appetite and hydration. PHYSICAL EXAM: KPS: 80 General Appearance: Alert and oriented. No acute distress. Skin erythema/hyperpigmentation: Mild Desquamation: No TOXICITY ASSESSMENT (CTC v4.0): Fatigue: grade 1 - Fatigue relieved by rest Radiation dermatitis: grade 1 - Faint erythema or dry desquamation Treatment chart checked: Yes Patient treatment site reviewed and verified:Yes Port films reviewed and current:Yes Medications started: None ASSESSMENT/PLAN: Clinically stable. Toxicity within expected parameters. Continue radiation treatment as planned. Signed by: Reece Leach MD documented in this encounter [facility] 07-14-2022 Nurse Note Status: Post-menopausal. documented in this encounter [facility] 07-07-2022 Miscellaneous Notes SOCIAL WORK FOLLOW UP NOTE: [facility] Date of service:07/07/22 Kiah Cortse is being seen for a follow up social work visit. Today's visit includes: patient TOPICS ADDRESSED: [employer] [facility] Assigned SW listed in Care Team tab: Yes SW called to register this Patient for the [facility] taking place on 07/15/22. Patient has a flyer for this program. Patient states that she is receiving daily radiation and she will already be in the building when this program starts. SW will reman available and will follow up as appropriate. STEPHY Kitchen documented in this encounter [facility] 06-30-2022 History of Present illness Narrative RADIATION ONCOLOGY- ON TREATMENT REVIEW (OTR) NOTE PATIENT NAME: Kiah Cortes PATIENT DIAGNOSIS: Ms. Cortes is a 67-year-old woman diagnosed with [id number] IDC of the right breast, ER/HI positive HER2 negative status post neoadjuvant chemotherapy under the care of Dr. Dao consisting of TC x4c planning on 02/12/2022 followed by right breast wide local excision and axillary lymph node dissection with Dr. Mercedes on 03/25/2022 showing residual [id number] disease. Pathology described a residual 2.2 cm of intermediate grade IDC with negative margins and 6 of 12 lymph nodes positive for metastatic disease with largest focus of 3.3 cm with extranodal extension. She started endocrine therapy with anastrozole as start of radiation was delayed to allow for adequate wound healing. COURSE: post-operative Area Treated: Right breast and regional lymph nodes Current dose: 1600 cGy in 8 fx Planned dose: 6000 cGy in 30 fx SUBJECTIVE: Tolerating XRT well and is starting to note mild pinkness in the treatment area but denies any pain/discomfort or itching or swelling or issues range of motion of the right upper extremity. Her incision has healed over completely and she has been discharged from the wound clinic. She does use a moisturizer twice a day. She endorses fatigue with poor appetite and stable weight and good hydration. She has recently been experiencing joint pain since starting Arimidex which was held. PHYSICAL EXAM: KPS: 80 General Appearance: Alert and oriented. No acute distress. Skin erythema/hyperpigmentation: Minimal Desquamation: No TOXICITY ASSESSMENT (CTC v4.0): Fatigue: grade 1 - Fatigue relieved by rest Radiation dermatitis: grade 1 - Faint erythema or dry desquamation Treatment chart checked: Yes Patient treatment site reviewed and verified:Yes Port films reviewed and current:Yes Medications started: None ASSESSMENT/PLAN: Clinically stable. Toxicity within expected parameters. Continue radiation treatment as planned. Signed by: Reece Leach MD documented in this encounter [facility] 06-30-2022 Nurse Note Status: Post-menopausal. Hermila Baron RN documented in this encounter [facility] 06-29-2022 Miscellaneous Notes Pt notified and agrees w/ recommendations. Miriam Nj RN Sorry - missed this message - yes she should hold her arimidex. Naprosyn would be fine to take. In the meanwhile to calm her joints. Pt calls again regarding joint pain. States that she has difficulty using her hands because of the pain. Notes pain in her right hip and legs as well. Makes it difficult to lay on her right side. Should she hold her Arimidex for a time to see if her symptoms improve? Miriam Nj RN Mansoor is here for radiation therapy with c/o generalized achy joints for the last couple days. She said she did take Tylenol without relief. She said she is not to take NSAIDS dut to her other medications. She said she's been taking Arimidex for approximately 1 month and this is the first time she's experienced achy joints. She said her daughter told her she should request a Celebrex prescription. Follow up with Dr. Dao is scheduled for 07/23/22. Please advise. Luanne Laughlin LPN documented in this encounter 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 She is doing well. She saw the Wound Clinic at [facility] to her axillary incision and site is healed. She is continuing to use it daily during radiation. She is tolerating radiation well. She is pleased with her recovery. Breast incision is well healed. Overall, she feels well. She has seen Dr White postop. She is established with [facility] OT team. OBJECTIVE: PHYSICAL EXAM: The right upper outer breast incision is healing beautifully. The right axillary incision is healed beautifully as well. Expected radiation skin change present. 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 PLAN: Continue incision care with wound care and radiation team. Continue radiation with Dr Leach. Recommend continued walking/arm exercises. Continue OT support. Follow up with mammography in September as scheduled. We are happy to see you any time with any surgical breast questions or concerns. All questions were answered to her satisfaction, she verbalizes understanding and is agreeable to the plan. Gera Phillips PA-C documented in this encounter [facility] 06-24-2022 Nurse Note Status: Post-menopausal. Hermila Baron RN documented in this encounter [facility] 06-24-2022 History of Present illness Narrative RADIATION ONCOLOGY- ON TREATMENT REVIEW (OTR) NOTE PATIENT NAME: Kiah Cortes PATIENT DIAGNOSIS: Ms. Cortes is a 67-year-old woman diagnosed with [id number] IDC of the right breast, ER/HI positive HER2 negative status post neoadjuvant chemotherapy under the care of Dr. Dao consisting of TC x4c planning on 02/12/2022 followed by right breast wide local excision and axillary lymph node dissection with Dr. Mercedes on 03/25/2022 showing residual [id number] disease. Pathology described a residual 2.2 cm of intermediate grade IDC with negative margins and 6 of 12 lymph nodes positive for metastatic disease with largest focus of 3.3 cm with extranodal extension. She started endocrine therapy with anastrozole as start of radiation was delayed to allow for adequate wound healing. COURSE: post-operative Area Treated: Right breast and regional lymph nodes Current dose: 800 cGy in 4 fx Planned dose: 6000 cGy in 30 fx SUBJECTIVE: Tolerating first week of XRT well and denies any pain/discomfort in the breast or any skin irritation/breakdown or itching or swelling or issues with range of motion of the right upper extremity. She has been using nystatin in the inframammary fold which has been helping with the likely fungal infection. She does note fatigue with stable appetite and hydration and weight. Her incision continues to be healing well. PHYSICAL EXAM: KPS: 80 General Appearance: Alert and oriented. No acute distress. Skin erythema/hyperpigmentation: No Desquamation: No TOXICITY ASSESSMENT (CTC v4.0): Fatigue: grade 1 - Fatigue relieved by rest Radiation dermatitis: grade 0 - No symptoms Treatment chart checked: Yes Patient treatment site reviewed and verified:Yes Port films reviewed and current:Yes Medications started: None ASSESSMENT/PLAN: Clinically stable. Toxicity within expected parameters. Continue radiation treatment as planned. We reviewed skincare as well as general precautions during radiation treatment to the breast and discussed the potential acute toxicities during treatment and their time course. Encouraged the use of a good moisturizer in the treatment area and discussed the importance of a well-balanced diet, hydration, and exercise/activity as tolerated through the course of treatment. Signed by: Reece Leach MD documented in this encounter [facility] 06-22-2022 Miscellaneous Notes I spoke to [place]. Gera Phillips PA-C Patient calling to ask if still really need to see her on 06/24? She states her surgical wound is now closing up enough that she has been able to start radiation treatments It so happens that she does have a radiation treatment scheduled for 06/24 and she could make f/u appointment with you right afterwards, but it will be tight. She would be coming from [place] and that is an hour's drive at least so she might be a little late. Please advise patient @ documented in this encounter [facility] 06-15-2022 Miscellaneous Notes Called patient to follow-up on her wound care appt as per below Patient states that they gave her a gel to apply called Medihoney and she feels it has completely healed up Patient is very pleased with the care at the wound clinic and has appt to see Dr Leach today to see when she can start radiation Patient will see the wound clinic in 2 weeks Patient called back. States she has appt this . Needs the referral faxed to them at [phone] Please call patient when faxed. Order placed for Wound Care [facility] - needs appt LAURA as she needs to start radiation. Gera Phillips PA-C Patient calling. She has been unable to reach the Wound Center at the number she was given at the OV yesterday. She has found that [facility] has a Wound Center and is very near her home. Asking for a referral to that facility. [facility] CALL patient at [phone] documented in this encounter [facility] 06-15-2022 History of Present illness Narrative Radiation Oncology - Follow Up Note PATIENT NAME: Kiah Cortes PATIENT DIAGNOSIS/PATIENT IDENTIFICATION: Ms. Cortes is a 67-year-old woman diagnosed with [id number] IDC of the right breast, ER/HI positive HER2 negative status post neoadjuvant chemotherapy under the care of Dr. Dao consisting of TC x4c planning on 02/12/2022 followed by right breast wide local excision and axillary lymph node dissection with Dr. Mercedes on 03/25/2022 showing residual [id number] disease. Pathology described a residual 2.2 cm of intermediate grade IDC with negative margins and 6 of 12 lymph nodes positive for metastatic disease with largest focus of 3.3 cm with extranodal extension. Ms. Cortes returns today for a skin/incision check and examination today notes substantial improvement in her wound dehiscence with near closure of the incision. In the interim she met with the wound clinic and started using Medihoney to the area which she feels has been helping. Given this interval improvement, we have agreed to start her radiation treatments on Tuesday after repeat skin check. The patient is aware to contact the clinic in the interim should any questions or concerns arise. Thank you for allowing us to participate in the care of this patient. Signed by: Reece Leach MD I spent a total of 5 minutes on the date of the service which included preparing to see the patient, [id number] patient care, performing a medically appropriate examination, and counseling and educating the patient/family/caregiver. This document has been created with the use of voice recognition technology. It may contain inaccuracies, misspellings, inaccurate syntax or inappropriate word context that are a result of the inadequacies/shortcomings of said technology/software. documented in this encounter [facility] 06-10-2022 History of Present illness Narrative Episode Visit Count: 5 Therapist That Will Accept/Oversee The Plan Of Care: Willian So Start of Care Date: 05/13/22 Onset Date: 05/13/22 Plan of Care Certification Date: 05/13/22 Next Certification Due Date: 05/13/23 Patient Identified by Name and Date of : Yes REHABILITATION AND SPORTS THERAPY OCCUPATIONAL THERAPY PROGRESS REPORT PLAN OF CARE UPDATE: Assessment: Kiah Cortes demonstrates improvements in R UE AROM FF/ABD and IR - pt now able to reach behind back to lumbar area (before it was just to hip) . Axillary wound healing slowly, pt will be able to start radiation once healed - maybe next week. R arm volume improving - swelling decreasing. 05/13 = 2894.94 05/20 = 3069.44 05/27 2941.46 06/03 = 2995.52 and 06/10 = 2995.52 now only 3.36% difference compared to L non involved arm. Pt's Sigvaris arm sleeve fits well, is containing - pt to wear daily until pt finishes radiation then re-assess if daily wear is needed. OT will follow pt 4-6 weeks once radiation completed for recheck on R arm and R breast - lymphedema surveillance She has progressed toward goals. Patient continues to present with impairments in edema management, range of motion, and symptom management that interfere with . Current prognosis is good She will benefit from continued skilled therapy services to meet the updated goals for this plan of care as noted below. update goals 06/10/22 Pt to work on all ONGOING goals Goals for Episode of Care created on 05/13/22 through 05/13/23 Patient able to verbalize skin care and lymphedema risk reductions ONGOING MOSTLY MET Patient will report a good understanding of diagnosis and OT recommendations for progression of program ONGOING MOSTLY MET Patient will demonstrate proper positioning of limb ONGOING MOSTLY MET Patient/family independent with home exercise program including self MLD, compression wrapping, skincare guidelines, scar massage, ROM exercises, strengthening exercises, cardiovascular exercise, and garment instructions ONGOING MOSTLY MET Patient will increase active ROM of R shoulder to 160 degrees in FF/ABD to improve overhead reach and decrease tightness for improved ADL ONGOING MOSTLY MET - pt to continue daily R UE stretching for many months to years after radiation completed Patient will decrease involved limb circumference by 2-4 cm MET Patient will have supple scar with no tenderness to palpation and demonstrate and understanding of scar management ONGOING - SLOWLY MEETING Patient will demonstrate understanding of techniques used to address axillary webbing N/A Patient/family independent with donning/doffing compression garment and proper wearing schedule and care of garment - MET Patient independence with home program ONGOING - MOSTLY MET Patient Goals: post op program and lymphedema education Patient Goals: post op program and lymphedema education Planned Interventions, Frequency, and Duration: , Planned Treatment Interventions: Therapeutic exercise (15826), Manual therapy (69854), Self-penitentiary management (96929), Patient/Family/Caregiver Education, Vasopneumatic Treatment (71033) PLAN FOR NEXT VISIT: f/u 4-6 weeks after radiation - lymphedema surveillance R UQ - sonner if needed SUBJECTIVE: 11 weeks S/P R lumpectomy with ALND. Pt reports her wound is healing (she is using honey) may be able to start radiation next week. Pt here today with R arm sleeve on (gauntlet has not come in yet) - pt reports comfort with sleeve Pain: Pain Pain Level: 0 (R medial breast tissue - hard, firm - a little uncomfortable per pt report) Post Treatment Pain Post Treatment Pain Level: Better (pt reported R breast tissue softer, less painful) PROMIS Scales Higher is Better 06/07/2022 05/12/2022 Phys Func - Score 42 (mild dysfunction) 47 (within normal limits) Phys Func - Percentile 21 % 38 % Self-Eff Symptom - Score 49 (Average) 42 (Average) Self-Eff Symptom - Percentile 46 % 21 % T-scores: mean of general population = 50. 5 points is clinically meaningfully difference Percentiles provide an indication of how the patient's score ranks in relation to the general population. Higher percentile rankings indicate better function/quality of life. 50th percentile is the average of the general population and indicates half of respondents had a worse score. OBJECTIVE MEASURES WITH LEVEL OF FUNCTION: R shoulder AROM FF/ABD WFL - WNL equivalent to L R shoulder IR improved from hip to low back wound - slowly healing scars - still tight and adherent - need continued work by pt R arm swelling - volume decreased R breast - swelling still palpable, some areas of fibrotic tissue beginning - R medial breast PROMIS - score showing mild dysfunction - score reflects back pain and wound healing Upper Extremity Circumferential Measurements R Thumb (proximal phalanx) (cm): 5.5 cm R Index Finger (proximal phalanx) (cm): 5.7 cm R Middle Finger (proximal phalanx) (cm): 5.7 cm R Ring Finger (proximal phalanx) (cm): 5.3 cm R Small Finger (proximal phalanx) (cm): 4.4 cm R DPC (cm): 17.5 cm R Distal Wrist Crease (DWC) (cm): 15.6 cm R 4 cm above wrist (cm): 16.6 cm R 8 cm above wrist (cm): 19 cm R 12 cm above wrist (cm): 22.5 cm R 16 cm above wrist (cm): 25.6 cm R 20 cm above wrist (cm): 27.4 cm R 24 cm above wrist (cm): 27.6 cm R 28 cm above wrist (cm): 29.6 cm R 32 cm above wrist (cm): 32.6 cm R 36 cm above wrist (cm): 36.5 cm R 40 cm above wrist (cm): 37.6 cm R 44 cm above wrist (cm): 39.5 cm L Thumb (proximal phalanx) (cm): 5.7 cm L Index Finger (proximal phalanx) (cm): 5.7 cm L Middle Finger (proximal phalanx) (cm): 5.8 cm L Ring Finger (proximal phalanx) (cm): 5.1 cm L Small Finger (proximal phalanx) (cm): 4.6 cm L DPC (cm): 17.8 cm L Distal Wrist Crease (DWC) (cm): 15.5 cm L 4 cm above wrist (cm): 15.6 cm L 8 cm above wrist (cm): 18.4 cm L 12 cm above wrist (cm): 22.1 cm L 16 cm above wrist (cm): 24.7 cm L 20 cm above wrist (cm): 25.7 cm L 24 cm above wrist (cm): 25.9 cm L 28 cm above wrist (cm): 29 cm L 32 cm above wrist (cm): 33.1 cm L 36 cm above wrist (cm): 37 cm L 40 cm above wrist (cm): 37.5 cm L 44 cm above wrist (cm): 38.9 cm Affected Arm : Right Arm Calculate Volume : Yes R Upper Extremity Volume: 2830.13 L Upper Extremity Volume: 2735.07 Difference in Volume: 95.06 Difference in % : 3.36 UE AROM R Shoulder Flex: (WFL - WNL) R Shoulder ABduction: (WFL-WNL) R Shoulder Internal Rotation (Functional): to lumbar TREATMENT: Manual Therapy Lymphedema: 1: MLD R breast 2: scar massage R breast - lumpectomy scar 3: R medial breast - fibrotic tissue massage Skilled Intervention: Manual skills to improve joint mobility, ROM, and decrease pain. Utilized anatomy knowledge of the therapist, and assessment of patient's response to intervention. Increase lymphatic fluid dynamics, increase skin extensibility and normalize sensation. Self-Detention Management: 1: measurements of R arm - showing decrease volume - discussed and showed results with pt 2: R arm sleeve - good fit, nice containment 3: goals status and review 4: review of home program - pt to continue ROM, scar massage, R breast MLD - use of compression to R breast and arm sleeve daily through radaiton as tolerated - then reassees post radiaiton 5: wound care - OT looked at wound, washed with saline and reapplied honey and non adherent pad, Medipore tape applied to hold on Skilled Intervention: Skilled judgment in the selection of proper modification for activity of daily living/home management based on clinical presentation, deficits, and needs. Reviewed patient specific diagnosis in relation to activities of daily living/home management. Activity progression based on professional judgement. Billing Manual Therapy Treatment Minutes: 30 Self-Care/Home Management Treatment Minutes: 25 Total Treatment Time Minutes (timed/untimed): 55 DOMINIQUE Monsalve documented in this encounter [facility] 06-04-2022 History of Present illness Narrative KIAH CORTES [id number] 06/04/2022 [facility] Department of Radiation Oncology Treatment Planning Note For reasons stated in the consult note, Kiah Cortes is a candidate for radiation therapy. Based on review and interpretation of the relevant diagnostic studies together with the exam findings, Kiah Cortes was simulated on 06/04/2022 at which time the target volume and/or requisite malone were delineated, as indicated in the simulation note, to be treated according to the prescription. The treatment target and organs at risk were contoured on the simulation scan. Special consideration to these and other structures was given in light of the potential for increased toxicities due to presence of a prosthesis (tissue electric blasting cap assembler or implant) in the treatment field. After reviewing multiple treatment plans with dosimetry, the best plan was approved to deliver the prescribed course of radiation to the target area using 3D planning to allow for the best isodose distribution, treating to the 100% isodose line with 10 and 15MV and 4 malone. Custom MLC asym jaws were the treatment devices used to shape/modify the beams. Limiting dose to normal tissue was confirmed upon review of the calculated dose volume histogram. A completed summary of this plan dated 06/18/22 incorporated herein by reference includes dose, beam arrangements, energy, blocking, isodose distribution, and/or ports and DVH. Electronically Signed Reece Leach M.D. 35:27 PM documented in this encounter [facility] 06-03-2022 History of Present illness Narrative Episode Visit Count: 4 Therapist That Will Accept/Oversee The Plan Of Care: Willian So Start of Care Date: 05/13/22 Onset Date: 05/13/22 Plan of Care Certification Date: 05/13/22 Next Certification Due Date: 05/13/23 Patient Identified by Name and Date of : Yes REHABILITATION AND SPORTS THERAPY OCCUPATIONAL THERAPY TREATMENT NOTE ASSESSMENT: Kiah Cortes tolerated the session with no issues. She demonstrated difficulty with R axillary wound healing and R breast and arm swelling. Pt is planning to draft roller picker her arm sleeve/gauntlet today . The patient will continue to benefit from ongoing skilled occupational therapy to progress toward set goals. Planned Treatment Interventions: Therapeutic exercise (40735), Manual therapy (58682), Self-penitentiary management (48919), Patient/Family/Caregiver Education, Vasopneumatic Treatment (59821) PLAN FOR NEXT VISIT: DEE, galina sleeve pump on breast - did pt bring arm sleeve and gauntlet SUBJECTIVE: 10 weeks S/P R lumpectomy with ALND, Pt reports wound is still healing may need to see wound care. Pt was measured for her arm sleeve and will pick it up this am Pain: Pain Pain Level: 0 Post Treatment Pain Post Treatment Pain Level: No Change OBJECTIVE MEASURES WITH LEVEL OF FUNCTION: R breast swelling persists Upper Extremity Circumferential Measurements R Thumb (proximal phalanx) (cm): 5.5 cm R Index Finger (proximal phalanx) (cm): 5.6 cm R Middle Finger (proximal phalanx) (cm): 5.5 cm R Ring Finger (proximal phalanx) (cm): 5.4 cm R Small Finger (proximal phalanx) (cm): 4.7 cm R DPC (cm): 17.6 cm R Distal Wrist Crease (DWC) (cm): 15.5 cm R 4 cm above wrist (cm): 17.3 cm R 8 cm above wrist (cm): 20.1 cm R 12 cm above wrist (cm): 23.5 cm R 16 cm above wrist (cm): 26.5 cm R 20 cm above wrist (cm): 27.8 cm R 24 cm above wrist (cm): 28.7 cm R 28 cm above wrist (cm): 31 cm R 32 cm above wrist (cm): 33 cm R 36 cm above wrist (cm): 37.3 cm R 40 cm above wrist (cm): 39.1 cm R 44 cm above wrist (cm): 39.3 cm Affected Arm : Right Arm Calculate Volume : Yes R Upper Extremity Volume: 2995.52 UE AROM R Shoulder Flex: 152 Degrees R Shoulder ABduction: 160 Degrees TREATMENT: Manual Therapy Lymphedema: 1: measurements - showing slight increase from last week, less fluid than 05/20 - pt will draft roller picker sleeve today 2: MLD to R breast Skilled Intervention: Manual skills to improve joint mobility, ROM, and decrease pain. Utilized anatomy knowledge of the therapist, and assessment of patient's response to intervention. Increase lymphatic fluid dynamics, increase skin extensibility and normalize sensation. Self-Detention Management: 1: reinforced diligent home program for R arm elevation, exer, self MLD, compression to R UQ - skin care 2: wear the swell spot in compression bra as much as possible day/night/sleeping 3: arm sleeve/gauntlet - OFF FOR SLEEPING 4: taught pt self MLD for R breast - supraclvicular and parasternal LN 5: reinforced diaphramtic breathing Skilled Intervention: Reviewed patient specific diagnosis in relation to activities of daily living/home management. Activity progression based on professional judgement. Modalities: Vasopneumatic Treatment Body Region Treated - Vasopneumatic Treatment: R UQ - comfy vest Patient Position: sitting R arm elevated Compression mmH Cycle: intermittent Seconds On: 30 Seconds Off: 10 Minutes: 25 Skilled Intervention: Proper administration and selection of modality based on clinical presentation, deficits, and needs. Patient response monitored throughout treatment. Billing Manual Therapy Treatment Minutes: 30 Self-Care/Home Management Treatment Minutes: 10 * Vasopneumatic Treatment: 1 unit Total Treatment Time Minutes (timed/untimed): 60 DOMINIQUE Monsalve documented in this encounter [facility] 05-27-2022 History of Present illness Narrative Episode Visit Count: 3 Therapist That Will Accept/Oversee The Plan Of Care: Willian So Start of Care Date: 05/13/22 Onset Date: 05/13/22 Plan of Care Certification Date: 05/13/22 Next Certification Due Date: 05/13/23 Patient Identified by Name and Date of : Yes REHABILITATION AND SPORTS THERAPY OCCUPATIONAL THERAPY TREATMENT NOTE ASSESSMENT: Kiah Cortes tolerated the session with no new issues. She demonstrated improvements in R arm volume compared to last visit - however, due to wound still healing, she may be experiencing a residual bit of post op swelling . Pt now has a better supportive compression bra and swell spot to wear with it. She is still exploring other bras to improve RUQ compression - anterior posterior lateral coverage . [facility] after pump today to get measured for R arm sleeve and gauntlet - Sigvaris Secure 20-30 mmHg The patient will continue to benefit from ongoing skilled occupational therapy to progress toward set goals. Planned Treatment Interventions: Therapeutic exercise (80078), Manual therapy (97028), Self-penitentiary management (60279), Patient/Family/Caregiver Education, Vasopneumatic Treatment (22466) PLAN FOR NEXT VISIT: DEE, galina pump - did pt arm sleeve and gauntlet come yet? SUBJECTIVE: 9 weeks S/P R lumpectomy with ALND. Pt reports wound is healing well - open just a bit - pt unable to have radiation until wound fully healed. Pt wearing a more suportive bra today. Pt brought her Solaris swell spot to clinic today for OT to assess Pain: Pain Pain Level: 0 Post Treatment Pain Post Treatment Pain Level: No Change OBJECTIVE MEASURES WITH LEVEL OF FUNCTION: R shoulder AROM - improved FF, HBH exercise motion R swell spot fits well with current she fit ultra bra - pt may elect to wear at home - can wear day/night Upper Extremity Circumferential Measurements R Thumb (proximal phalanx) (cm): 5.4 cm R Index Finger (proximal phalanx) (cm): 6 cm R Middle Finger (proximal phalanx) (cm): 5.5 cm R Ring Finger (proximal phalanx) (cm): 5.4 cm R Small Finger (proximal phalanx) (cm): 4.7 cm R DPC (cm): 17.9 cm R Distal Wrist Crease (DWC) (cm): 15.7 cm R 4 cm above wrist (cm): 16.5 cm R 8 cm above wrist (cm): 19.1 cm R 12 cm above wrist (cm): 22.2 cm R 16 cm above wrist (cm): 25.5 cm R 20 cm above wrist (cm): 28.2 cm R 24 cm above wrist (cm): 29 cm R 28 cm above wrist (cm): 30.9 cm R 32 cm above wrist (cm): 34 cm R 36 cm above wrist (cm): 36.5 cm R 40 cm above wrist (cm): 38 cm R 44 cm above wrist (cm): 40.5 cm Affected Arm : Right Arm Calculate Volume : Yes R Upper Extremity Volume: 2941.46 TREATMENT: Self-Detention Management: 1: measurements of R arm - improved from last visit 2: OT called [facility] [employer] [facility] - pt to go after appt today to get measrued for Sigvaris Secure 20-30 mmHg arm sleeve and gauntlet - pt has arthritis gloves if fingers swell 3: swell spot - fits in bra - recommend wear day/night as tolerated and possible - take out for public outings due to size descrpency 4: continue ROM exer - daily 5: discussed Pra[employer] Wear Prima Hugger bra - med/high compression - pt to look into this on website, info issued and discount code - nice post op bra Skilled Intervention: Provided written instruction for activities of daily living techniques to facilitate proper performance and compliance. Reviewed patient specific diagnosis in relation to activities of daily living/home management. Activity progression based on professional judgement. Modalities: Vasopneumatic Treatment Body Region Treated - Vasopneumatic Treatment: R UQ - comfy vest Patient Position: sitting R arm elevated Compression mmH Cycle: intermittent Seconds On: 30 Seconds Off: 10 Minutes: 25 Skilled Intervention: Proper administration and selection of modality based on clinical presentation, deficits, and needs. Patient response monitored throughout treatment. Billing Self-Care/Home Management Treatment Minutes: 35 * Vasopneumatic Treatment: 1 unit Total Treatment Time Minutes (timed/untimed): 50 DOMINIQUE Monsalve documented in this encounter 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 She is doing well. She notes the axillary incision is closing nicely with daily packing changes. Breast incision is well healed. Overall, she feels well. She has seen Dr White postop. 05/10 XRT Simulation delayed due to axillary incision dehiscence She is established with [facility] OT team. OBJECTIVE: PHYSICAL EXAM: 05/27/22 1119 Temp: 36.3 C (97.3 F) TempSrc: Temporal The right upper outer breast incision is healing beautifully. There is a <5mm deep and 1cm in length axillary incision wound dehiscence present at the most lateral end of incision. Base of wound is beefy red c/w healthy granulation tissue. Site packed with corner of 2x2 gauze/covered with a dressing. Skin irritation present from tape. 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 PLAN: Pack site daily after showering with gauze/cover with dressing. Leave open to air with arm elevated/resting out at shoulder level at some point during the day. Support arm with couch/pillow. Recommend delaying radiation until site healed. Follow up in 1 week - if wound is not healing at that point - will consult wound care team. [facility] Recommend continued walking/arm exercises. We are happy to see you any time with any surgical breast questions or concerns. All questions were answered to her satisfaction, she verbalizes understanding and is agreeable to the plan. Gera Phillips PA-C documented in this encounter [facility] 05-26-2022 Miscellaneous Notes Patient started/will start taking Anastrozole on 05/26/22. Miriam Nj RN documented in this encounter [facility] 05-26-2022 History of Present illness Narrative ORAL ANTI-CANCER AGENTS EDUCATION patient here today for oral medication education for Anastrozole (Arimidex) for Breast Cancer READINESS TO LEARN Cognitive Ability: Alert and oriented Motivation to Learn: Interested Family Support: Unable to assess - Family not present Instruction Provided to: Patient Patient learns best by: Multiple Methods Factors affecting learning: None Physical limitation affecting learning: None COLBERT ASSESSMENT: 1.) Verified that patient knows that the oral agents are for cancer and are taken by mouth. Yes 2.) Medication reconciliation completed during visit. Yes 3.) Patient is able to swallow pills. Yes 4.) Patient is able to read the drug label/information. Yes 5.) Patient is able to open the medication bottles and packages. Yes 6.) Has patient taken other pills for cancer? No 7.) Is patient experiencing any symptoms that would affect their ability to keep down pills, for example nausea or vomiting? No 8.) Verified that patient understands prescription delivery, benefit investigation and refill process. Yes PATIENT EDUCATION: 1.) Verified that patient attended individualized instruction on chemotherapy taught by a nurse. Yes 2.) Verified that patient received [facility] Medication Information handout: Anastrozole: Yes DRUG-SPECIFIC EDUCATION: 1.) Verified that patient knows the drug name. Yes 2.) Verified patient understands the dose and schedule of oral chemo agent:with water, with or without food. Yes 3.) Verified patient knows what to do if a medication dose is missed. Yes 4.) Verified patient understands where to store the drug. Yes 5.) Verified patient understands potential side effects and how to manage them. Yes Nausea , Vomiting, Headache, Fatigue, Rash, Peripheral Edema, Myalgia, Arthalgia, Hot Flashes, Vaginal Discharge, and Hypertension 6.)Verified that patient understands handling precautions of oral chemo agent. Yes 7.) Verified that patient understands when and whom to call with questions. Yes 8.) Verified that patient understands where and how to return drug. Yes EVALUATE: Patient was able to demonstrate an understanding of all the above education using the teach-back method. Yes Patient instructed to call us with any questions, concerns, and/or unresolved symptoms. Will continue to follow up with patient and provide reinforcement of teaching topics as needed. Total time spent with patient: 20 minutes Total time spent on encounter: 5 minutes Miriam Nj RN documented in this encounter [facility] 05-25-2022 Miscellaneous Notes Signed thank you Pt notified and verbalizes understanding. Mary/Dipti: Script pended. Miriam Nj RN Call placed to pt. No answer. Message left requesting call back. Miriam Nj RN Images from the original note were not included. MD Miriam Schmitt RN [facility] - can you please call her to start her on an AI - arimidex 1 mg daily. Previous Messages ----- Message ----- From: Reece Leach MD Sent: 05/19/2022 1:15 AM EDT To: Narendra Dao MD Just a thought - given the delay to radiation from the time of surgery, it may not be unreasonable to start her endocrine therapy while we wait for her to heal. Thanks! Reece documented in this encounter [facility] 05-25-2022 Miscellaneous Notes Patient scheduled for chemo ed on 05/26/2022@10 am. Jessica Vera Pt calls w/ several questions/concerns regarding Arimidex. Offered pt and appointment for education. Pt agrees. Clerical: Pt will be in tomorrow @ 10 AM for education. Please add her to my schedule. Thanks! Miriam Nj RN documented in this encounter [facility] 05-24-2022 Note HNO ID: [id number] Author: Warren Mason RN Service: ? Author Type: Registered Nurse Type: Nursing Progress Note Filed: 05/24/2022 10:47 AM Note Text: MD at bedside. [facility] 05-24-2022 Nurse Note MD at bedside. documented in this encounter [facility] 05-24-2022 History and physical note UPDATED HISTORY AND PHYSICAL EXAMINATION SERVICE DATE: 05/24/2022 SERVICE TIME: 9:47 AM PHYSICAL EXAM MUST BE COMPLETED ON ADMISSION The History and Physical (completed in the past 30 days) has been reviewed and the patient has been examined. The contents accurately reflect the patient's condition with the following additions or revisions since the H&P was completed. Examination indicates no changes. This H&P can be found in the Electronic Medical Record dated 05.14.22. SIGNATURE: Joaquín Mahmood Jr, MD PATIENT NAME: Kiah Cortes DATE: May 24, 2022 TIME: 9:47 AM documented in this encounter [facility] 05-20-2022 History of Present illness Narrative Episode Visit Count: 2 Therapist That Will Accept/Oversee The Plan Of Care: Willian So Start of Care Date: 05/13/22 Onset Date: 05/13/22 Plan of Care Certification Date: 05/13/22 Next Certification Due Date: 05/13/23 Patient Identified by Name and Date of : Yes REHABILITATION AND SPORTS THERAPY OCCUPATIONAL THERAPY TREATMENT NOTE ASSESSMENT: Kiah Cortes tolerated the session with R ALND wound still healing. Pt demonstrates increased swelling in R arm, breast - however, pt is having systemic swelling in legs and L hand? R arm and breast may be more swollen due to ALND, post op and wound healing. OT will continue to monitor and treat. Pt now wearing compression to all areas to reduce swelling. . She demonstrated difficulty with R UQ swelling an wound healing . The patient will continue to benefit from ongoing skilled occupational therapy to progress toward set goals. Planned Treatment Interventions: Therapeutic exercise (76266), Manual therapy (32290), Self-penitentiary management (14749), Patient/Family/Caregiver Education, Vasopneumatic Treatment (31779) PLAN FOR NEXT VISIT: MLD R UQ - did swell spot come in? take measurements - may use comfy sleeve/chest pump - if wound more healed SUBJECTIVE: 8 weeks S/P R lumpectomy with ALND. Pt reports R wound still healing and she packs it everyday.Pt reports B hands are more swollen I think from arthritis and knitting Pt reports legs are swollen too. Pain: Pain Pain Level: 2 (wound healing) Pain Location: Arm - Right, Axilla - Right Description: Tightness, Sore Frequency: Continuous Post Treatment Pain Post Treatment Pain Level: No Change OBJECTIVE MEASURES WITH LEVEL OF FUNCTION: R ALND wound still healing - wound dressing on it today R breast swollen Upper Extremity Circumferential Measurements R Thumb (proximal phalanx) (cm): 5.5 cm R Index Finger (proximal phalanx) (cm): 6 cm R Middle Finger (proximal phalanx) (cm): 6 cm R Ring Finger (proximal phalanx) (cm): 5.5 cm R Small Finger (proximal phalanx) (cm): 4.8 cm R DPC (cm): 18.4 cm R Distal Wrist Crease (DWC) (cm): 16.3 cm R 4 cm above wrist (cm): 17.4 cm R 8 cm above wrist (cm): 20 cm R 12 cm above wrist (cm): 23.5 cm R 16 cm above wrist (cm): 26 cm R 20 cm above wrist (cm): 28.4 cm R 24 cm above wrist (cm): 29 cm R 28 cm above wrist (cm): 32.3 cm R 32 cm above wrist (cm): 34.4 cm R 36 cm above wrist (cm): 37 cm R 40 cm above wrist (cm): 39 cm R 44 cm above wrist (cm): 40.5 cm R Upper Extremity Volume: 3069.44 UE AROM R Shoulder Flex: 155 Degrees R Shoulder ABduction: 150 Degrees TREATMENT: Manual Therapy Lymphedema: 1: measurements of R arm - showing more swelling. R shoulder AROM improving 2: R breast swollen 3: MLD to R UE and breast Skilled Intervention: Manual skills to improve joint mobility, ROM, and decrease pain. Utilized anatomy knowledge of the therapist, and assessment of patient's response to intervention. Increase lymphatic fluid dynamics, increase skin extensibility and normalize sensation. Self-Detention Management: 1: review home program - R arm elevation, ROM, compression - diaphramatic breathing 2: OT made home made swell spot for R breast and channel foam on wound, lateral trunk to posterior - to help with re-routing fluid 3: Tubigrip G, and long isotner glove R hand -for R arm swelling 4: Discussed swell spot product for R breast and lateral trunk swelling - OT ordered for pt via [employer] 5: wear, care and precuations reviewed - remove if any pain or worsening of symptoms Skilled Intervention: Reviewed patient specific diagnosis in relation to activities of daily living/home management. Activity progression based on professional judgement. Billing Manual Therapy Treatment Minutes: 30 Self-Care/Home Management Treatment Minutes: 30 Total Treatment Time Minutes (timed/untimed): 60 DOMINIQUE Monsalve documented in this encounter 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 She is doing well. She has been using the prescribed Nystatin powder and continues with her personal silver cream on to her axillary incision. She believes the axillary incision is open more than last week. Breast incision is well healed. Overall, she feels well. She has seen Dr White postop. 05/10 XRT Simulation delayed due to axillary incision dehiscence She is established with [facility] OT team. OBJECTIVE: PHYSICAL EXAM: 05/20/22 1056 Temp: 36.7 C (98.1 F) Weight: 100.2 kg (221 lb) Height: 157.5 cm (5' 2.01 ) The right upper outer breast incision is healing beautifully. There is a 5-10mm deep and 1-1.5cm in length axillary incision wound dehiscence present at the most lateral end of incision. Base of wound is beefy red c/w healthy granulation tissue. Site packed with corner of 4x4 gauze/covered with a dressing. Fungal appearing rash inferior to axillary incision site resolved. Previously noted skin erythema present circumferentially to axillary incision is resolved. 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 Pack site daily after showering with gauze/cover with dressing. Recommend delaying radiation until site healed. Follow up in 1 week - if wound is not healing at that point - will consult wound care team. See breast OT today at [facility]. Recommend continued walking/arm exercises. We are happy to see you any time with any surgical breast questions or concerns. All questions were answered to her satisfaction, she verbalizes understanding and is agreeable to the plan. History, exam and plan discussed with Dr Mercedes who also examined the site and agrees with assessment/plan. Gera Phillips PA-C documented in this encounter [facility] 05-14-2022 Instructions Narendra Dao MD - 05/14/2022 11:36 AM EDT Keep appointment with Dr. Rufus SEPULVEDA after RT in late june 2022 Will proceed with colonoscopy with GI documented in this encounter [facility] 05-14-2022 History of Present illness Narrative Images from the original note were not included. NAME: Kiah Cortes CLINIC NO.: [id number] DATE [facility]: [facility] [address] [facility] Some elements in this clinic note that are critical to medical decision making have been carefully reviewed and included from a prior clinic note dated: April 02, 2022 ([facility]) Referring Provider: Dr. Shaikh West Additional Clinicians involved in Kiah Cortes's care: Dr. Shahana Mercedes DIAGNOSIS: Right breast cancer ASSESSMENT: 67 year old woman with right breast lump diagnosed with Stage cIIA IDC ER/HI++, HER2(0) breast cancer cT2 cN1, cMx in need of consideration for neoadjuvant chemotherapy and resection following completion of chemotherapy. Patient started neoadjuvant Taxotere and cytoxan with GSF on 12/04/21. Tolerated well with minor side effects. After she left the office, labs indicate elevation in BUN and creatinine, likely consistent with dehydration, corrected with hydration. Pulmonary nodule--0.3cm RML nodule on CT chest, repeat imaging following treatment. Thickened L adrenal gland on CTs--consider repeat imaging following treatment. Pre-op Cts with concern for diverticulitis. Will folow with GI. S/p R0 resection with persisting disease following neoadjuvant therapy. Given high risk disease (6 nodes +), would treat in adjuvant setting according to [place] [facility] trial of Abemaciclib + AI PLAN: Keep appointment with Dr. Rufus SEPULVEDA after RT in late june 2022 Will proceed with colonoscopy with GI HPI: CASE HISTORY: 03/25/2022 Rt Breast Lumpectomy and AxLND - residual IDC with signet ring features and treatment effect. IDC grade 2, 22 mm, margins negative, ypT2,pN2a, ER+HI+, HER2 neg (0), right axilly content - 08/09 nodes involved with macro-metastatic disease. VANI in at least one LN. 02/26/2022 - CT CAP : right axillary LN, subtle subpleural RML nodular opacity and subtle groundglass opacities. Sigmoid colon thickening. 12/04/2021 - 02/12/2022 4 cycles Taxotere + Cytoxan neoadjuvant. 11/27/2021 - NM bone scan - negative 11/20/2021 - CT A/P - negative 11/10/2021 MRI Breasts: - Birads 6 - rt breast - 7cmfn @ 10:00 3.6x3.1x2.5, 3-[address], lft breast Birads2 10/30/2021 CT Chest: multiple rt axillary LN, 0.3 cm right mid-lobe nodule - non-specific. 10/02/2021 US & Diag mammography - Right breast 12 O'Clock, 7 cm from nipple - 2.9 x 2.5 cm mass - x IDC +Axillary LN. G1, ER/HI 90/80% HER2 ([facility]) = 0 09/30/2021 right breast ultrasound: 2.9 x 2.5 x 2.3 cm mass 8 cm from the nipple at the 9 and 10 o'clock position of the right breast suspicious for malignancy. Suspicious lymph nodes in the right axilla noted. 08/2021 - noted right breast mass on self exam. Updated Visit, May 14, 2022: Still healing Chap ex (Reuben Padilla) - right breast - axillary scar with slight dehiscence - silver sulvidene in place. Radiation is unable to start yet. Updated Visit, April 02, 2022: [place] returns having had her resection last week and soaping machine back tender with drains in place. We will need to discuss adjuvant therapy in more depth as she had fairly significant persistent disease following resection in the resected specimen. I would presume that she fits along side the patient enrolled in the [place] E trial of abemaciclib + AI in such women that had neoadjuvant chemotherapy. We will discuss this more in depth when patient can spend time focusing on discussion and not feeling so uncomfortable. Abemaciclib plus ET demonstrated superior IDFS versus ET alone (P = .01; hazard ratio, 0.75; 95% CI, 0.60 to 0.93), with 2-year IDFS rates of 92.2% versus 88.7%, respectively. She had concern for diverticulitis on CT abdomen prior to surgery and will follow with GI for colonoscopy. Updated Visit, February 12, 2022: Kiah Cortes returns for follow-up and her final treatment with Taxotere and Cytoxan. She is tolerating treatment well. She has some sinus drainage and has been coughing this morning. She denies fevers, chills, night sweats and signs/symptoms of infection. No bleeding or abnormal bruising. Her biggest side effect from treatment is fatigue. Otherwise, no significant side effects. She wishes to proceed with treatment as planned. Updated Visit, February 05, 2022: Here with [place] hands improved Port flush today made her feel dizzy She's more fatigued than expected Looks cristina BP is notably decreased Renal function has dropped acutely. Updated Visit, January 15, 2022: Kiah Cortes here for cycle 3 Taxotere and Cytoxan. Since her last visit she has noticed some peeling of both of her hands. She denies any redness or pain to her hands. She has been keeping her hands well lotion. She also had right heel pain that lasted 2 to 3 days and she described it like stepping on glass or needles. She has had some fatigue. She denies fevers, chills, night sweats and signs/symptoms of infection. No bleeding or abnormal bruising. Overall, she is doing well and wishes to proceed with treatment as planned. 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 Updated Visit, December 14, 2021: [place] Isl returns for jagdish counts and follow up after starting neoadjuvant Taxotere and cyclophosphamide with GFS on 12/04/21. She does report having a headache for 2 days following treatment that was relieved with tylenol. Did have some constipation and hard stools. Had one episode of blood in stool on 12/11/21. None since. No nausea, vomiting or diarrhea. Appetite and taste is down but she is eating. Drinking is fine, but wine and coffee tastes bad. Some dry mouth but drinking at least 80-120cc of water everyday. No fevers, chills, cough, or shortness of breath. Updated Visit, December 04, 2021: [place]l returns with [place] her daughter. Reviewed CT Abdomen / Pelvis. Bone scan was negative. Will proceed with treatment. Chaperoned exam notable for 3-4 cm right upper outer quadrant breast mass easily palpable. No palpable axillary LN's. Updated Visit, November 18 2021: [place] Isl returns with her daughter [place] and has seen Dr. Mercedes and completed her MRI as well as CT Chest. Given the number of LN's involved, additional staging studies have been ordered to be completed including NM Bone scan and CT abdomen / Pelvis. Once these are completed and negative, we can proceed with planned neoadjuvant chemotherapy with up to 6 cycles of TC. Aside from being anxious, she is doing well. Initial Visit, October 21, 2021: Kiah Cortes presents today Hematology and Oncology evaluation. She is a 66 year old female who noted a mass on self breast exam in the right breast. 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 She's here with her daughter [place]. She was referred for medical oncology opinion regarding breast cancer. Will need to complete staging and anticipate lisa-adjuvant chemotherapy give peterson disease. FHX cancer: Daughter [place] - had cervical not ovarian Mother had lung cancer Another Daughter had lymphoma REVIEW OF SYSTEMS Per HPI and otherwise negative by full review of organ systems. ECOG PERFORMANCE STATUS: 0 PHYSICAL EXAMINATION: Vitals: BP 129/69 Pulse 72 Temp (Src) 97.6 (Temporal) Resp 18 Ht 5' 2.008 (1.58m) Wt 221 lb 6.4 oz (100.4kg) SpO2 97% BMI 40.48 kg/(m^2). Body surface area is 2.1 meters squared. Exam limited to gross visualization where appropriate due to COVID-19. Gen.: This is an age-appropriate patient in no acute distress. Head: Appears atraumatic with no visible lesions. Eyes: Pupils equally round and reactive to light, extraocular muscles are intact. Neck: Supple. Mouth: Masked. Respiratory: Appears to be respiring comfortably. Neurologic: Nonfocal to gross visualization. Alert and oriented 3. Psychiatric: No evidence of inappropriate anxiety or depression. Skin: Visible areas of skin without rash, lesions, wounds or petechiae. Side Door Man breast exam noted in HPI 05/14/2022 ALLERGIES: ALLERGIES Allergen Reactions Lisinopril Unknown Seasonal Allergies Itching, Other: See Comments MEDICATIONS: sulfamethoxazole-trimethoprim (BACTRIM DS) 800-160 mg per tablet^Take 1 tablet by mouth twice daily for 7 days.^Disp: 14 tablet^Rfl: 0 nystatin (MYCOSTATIN) powder^Apply 1 application to affected area twice daily.^Disp: 15 g^Rfl: 0 albuterol HFA (PROVENTIL HFA, VENTOLIN HFA) 90 mcg/actuation inhaler^INHALE 2 PUFFS 4 TIMES PER DAY NEEDED FOR SHORTNESS OF BREATH OR WHEEZING^Disp: ^Rfl: ondansetron (ZOFRAN) 8 mg tablet^Take 1 tablet by mouth every 8 hours as needed for nausea/vomiting.^Disp: 90 tablet^Rfl: 1 prochlorperazine (COMPAZINE) 10 mg tablet^Take 1 tablet by mouth every 6 hours as needed.^Disp: 100 tablet^Rfl: 1 atorvastatin (LIPITOR) 40 mg tablet^Take 40 mg by mouth once daily.^Disp: ^Rfl: loratadine (CLARITIN) 10 mg tablet^Take 10 mg by mouth once daily.^Disp: ^Rfl: metFORMIN (GLUCOPHAGE) 1,000 mg tablet^Metformin Active 1000 MG PO Every morning May 04, 2021 3:24pm^Disp: ^Rfl: carvedilol (COREG) 25 mg tablet^Take 25 mg by mouth twice daily.^Disp: ^Rfl: acetaminophen (TYLENOL) 325 mg tablet^Take 650 mg by mouth every 6 hours as needed.^Disp: ^Rfl: amLODIPine (NORVASC) 10 mg tablet^Take 10 mg by mouth once daily.^Disp: ^Rfl: levothyroxine sodium (LEVOTHYROXINE ORAL)^Take 50 mcg by mouth once daily.^Disp: ^Rfl: rOPINIRole (REQUIP) 0.25 mg tablet^Take 0.25 mg by mouth three times daily.^Disp: ^Rfl: LABORATORY VALUES: WBC (k/uL) Date Value 05/14/2022 6.66 RBC (m/uL) Date Value 05/14/2022 4.32 Hemoglobin (g/dL) Date Value 05/14/2022 12.8 Hematocrit (%) Date Value 05/14/2022 40.1 MCV (fL) Date Value 05/14/2022 92.8 MCH (pg) Date Value 05/14/2022 29.6 MCHC (g/dL) Date Value 05/14/2022 31.9 RDW-CV (%) Date Value 05/14/2022 14.7 Platelet Count (k/uL) Date Value 05/14/2022 204 MPV (fL) Date Value 05/14/2022 9.9 Glucose (mg/dL) Date Value 05/14/2022 175 (H) BUN (mg/dL) Date Value 05/14/2022 20 Creatinine (mg/dL) Date Value 05/14/2022 0.89 Sodium (mmol/L) Date Value 05/14/2022 140 Potassium (mmol/L) Date Value 05/14/2022 4.3 Chloride (mmol/L) Date Value 05/14/2022 104 CO2 (mmol/L) Date Value 05/14/2022 23 Protein, Total (g/dL) Date Value 05/14/2022 7.3 Albumin (g/dL) Date Value 05/14/2022 4.2 Calcium, Total (mg/dL) Date Value 05/14/2022 10.3 (H) Alkaline Phosphatase (U/L) Date Value 05/14/2022 102 Bilirubin, Total (mg/dL) Date Value 05/14/2022 0.2 AST (U/L) Date Value 05/14/2022 15 ALT (U/L) Date Value 05/14/2022 13 DIAGNOSIS: No diagnosis found. 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 ---Please see comment. Lymph node, right axillary tail, ultrasound-guided core biopsy ([id number], part B; 10/02/2021): ---Metastatic mammary carcinoma with signet ring features, measuring at least 13 mm in greatest dimension, likely representing a lymph node completely replaced by carcinoma. ---Please see comment. Right breast invasive carcinoma: ER: POSITIVE (100%, strong) HI: POSITIVE (100%, strong) HER2 IHC: NEGATIVE (0) Controls react as expected Right axillary tail metastasis: ER: POSITIVE (100%, strong) HI: POSITIVE (100%, strong) HER2 IHC: NEGATIVE (0) Controls react as expected IMAGING: Bone scan 11/27/21 No suspicious foci of activity. No scintigraphic evidence of osseous metastases. Likely degenerative/arthritic changes as described. CT abdomen and pelvis 11/20/21 . Nonspecific nodular thickening of the left adrenal gland. Consider interval follow-up. 2. Otherwise no evidence of intra-abdominal/intrapelvic metastases. 3. Subcentimeter left hepatic cyst. 4. Sigmoid colon diverticulosis without evidence of diverticulitis. 5. Nonspecific haziness of the mesenteric fat may represent edema or infectious/inflammatory etiologies. CT chest 10/30/21 1. Multiple enlarged right axillary lymph nodes, highly suspicious for neoplastic involvement. 2. A 0.3 cm right middle lobe pulmonary nodule is nonspecific. Continued attention on subsequent studies is suggested. PAST MEDICAL HISTORY Diagnosis Date Asthma Breast cancer (HCC) right breast DMII (diabetes mellitus, type 2) (HCC) 03/19/2022 Fibromyalgia HLD (hyperlipidemia) 03/19/2022 HTN (hypertension) Hypothyroidism 03/19/2022 Migraine Obesity Primary hypertension 03/19/2022 RLS (restless legs syndrome) 03/19/2022 PAST SURGICAL HISTORY Procedure Laterality Date APPENDECTOMY BREAST LUMPECTOMY HX Right 2022 BX OF BREAST; INCISIONAL Right COLONOSCOPY SCREENING LIGATE FALLOPIAN TUBE MASTECTOMY, PARTIAL Right 03/25/2022 PAST SURGICAL HISTORY OF Rt Shoulder PAST SURGICAL HISTORY OF Rt knee tendons PAST SURGICAL HISTORY OF Right shoulder tendons Social History Tobacco Use Smoking status: Never Passive exposure: Past Smokeless tobacco: Never Vaping Use Vaping Use: Never used Substance Use Topics Alcohol use: Not Currently Comment: 1 glass of wne a month Drug use: Never FAMILY HISTORY Problem Relation Age of Onset Cancer Mother lung Hypertension Mother Heart disease Father Hypertension Father Cancer Sister Cancer Brother brain Cervical Cancer Daughter Lymphoma Daughter I spent a total of 30 minutes on the date of the service which included preparing to see the patient, [id number] patient care, completing clinical documentation, obtaining and/or reviewing separately obtained history, performing a medically appropriate examination, counseling and educating the patient/family/caregiver, ordering medications, tests, or procedures, and independently interpreting results (not separately reported). Narendra Dao MD, CPE Hematology and Oncology Services Provided at: [place], [place] CC: Dr. Reece Mercedes documented in this encounter [facility] 05-13-2022 History of Present illness Narrative Episode Visit Count: 1 Therapist That Will Accept/Oversee The Plan Of Care: Willian So Start of Care Date: 05/13/22 Onset Date: 05/13/22 Plan of Care Certification Date: 05/13/22 Next Certification Due Date: 05/13/23 Patient Identified by Name and Date of : Yes [facility] REHABILITATION AND SPORTS THERAPY OCCUPATIONAL THERAPY EVALUATION PLAN OF CARE: Assessment: Kiah Cortes presents with diagnosis of R Stage III A Br Ca - 7 weeks S/P R breast lumpectomy with ALND x 12 that interferes with reaching overhead, reaching behind back . She presents with impairments in edema management/lymphedema risk range of motion, symptom management, wound healing. R UE volume = 2894.42 versus LUE volume = 2333.24 19.39% difference R axillary surgical wound still healing and slightly dehiscence PROMIS (Patient-Reported Outcomes Measurement Information System) scores were reviewed and all domains identified as within normal limits. Prognosis for therapy is Good due to: current objective clinical presentation, acuteness of condition . good She will benefit from skilled therapy services to meet the goals established for this plan of care as noted below. PMH: R complete reverse shoulder replacement 2021, diabetes, HBP, thyroid, asthma, restless leg, OA multiple joints/areas of body Goals for Episode of Care created on 05/13/22 through 05/13/23 Patient able to verbalize skin care and lymphedema risk reductions Patient will report a good understanding of diagnosis and OT recommendations for progression of program Patient will demonstrate proper positioning of limb Patient/family independent with home exercise program including self MLD, compression wrapping, skincare guidelines, scar massage, ROM exercises, strengthening exercises, cardiovascular exercise, and garment instructions Patient will increase active ROM of R shoulder to 160 degrees in FF/ABD to improve overhead reach and decrease tightness for improved ADL Patient will decrease involved limb circumference by 2-4 cm Patient will have supple scar with no tenderness to palpation and demonstrate and understanding of scar management Patient will demonstrate understanding of techniques used to address axillary webbing Patient/family independent with donning/doffing compression garment and proper wearing schedule and care of garment - once R arm less swollen pt will get measured Patient independence with home program Patient Goals: post op program and lymphedema education Planned Interventions, Frequency, and Duration: Current Frequency: 1x/week Duration: 4 weeks (4 visit for now - then follow after radaiton for lymphedema surveillance) Total Number of Visits Planned: (4 for now then after radiation for lymphedema surveillance) Planned Treatment Interventions: Therapeutic exercise (66754), Manual therapy (30399), Self-penitentiary management ([id number]), Patient/Family/Caregiver Education, Vasopneumatic Treatment (75218) PLAN FOR NEXT VISIT: MLD, cord massage, ROM progression depending on wound healing - follow up on bra and compression - OT will have pt get measured for R arm sleeve/glove/guantlet - lymph risk Patient demonstrates good understanding of plan of care and treatment. The above goals and plan of care were discussed and agreed upon by patient/family. SUBJECTIVE: Kiah Cortes is a 67 year old female seen today for 7 weeks S/P R Br lumpectomy with ALND Functional Limitations: reaching overhead, reaching behind back Prior Level of Function: Independent with restrictions Patient Goals: post op program and lymphedema education Intake Information: Prescription present Previous Treatment: (post op green book exer) Falls Interview: No positive findings with falls interview Relevant History Right or Left Handed: Right Employment: Retired Hobbies / Interests: cooking, sewing Home Environment Patient Lives With: Self/Alone (daughter lives nearby) Assistance Available: PRN Pain: Pain Pain Level: 3 Pain Location: Upper Arm - Right, Axilla - Right Description: Tightness, Sore Frequency: Continuous Post Treatment Pain Post Treatment Pain Level: No Change PROMIS Scales Higher is Better 05/12/2022 Phys Func - Score 47 (within normal limits) Phys Func - Percentile 38 % Self-Eff Symptom - Score 42 (Average) Self-Eff Symptom - Percentile 21 % T-scores: mean of general population = 50. 5 points is clinically meaningfully difference Percentiles provide an indication of how the patient's score ranks in relation to the general population. Higher percentile rankings indicate better function/quality of life. 50th percentile is the average of the general population and indicates half of respondents had a worse score. OBJECTIVE MEASURES WITH LEVEL OF FUNCTION: AROM R Shoulder decreased overhead reach, decreased IR from R shoulder replacement surgery Sensation in hands and feet - some tingling/numbness due to CIPN axillary wound - still healing - dressing on + ANDREW in R axilla to elbow Lymphedema Presents with: Swelling, Functional Limitations, Pain, Decreased knowledge of lymphedema management Breast Cancer Related Stage of Lymphedema: Grade 3: Moderate- Change >8% greater than baseline (post op and incison healing - thus decreased ROM of R shoudler - may be reason for increase - OT to monitor) Upper Extremity Circumferential Measurements R Thumb (proximal phalanx) (cm): 5.6 cm R Index Finger (proximal phalanx) (cm): 6 cm R Middle Finger (proximal phalanx) (cm): 6 cm R Ring Finger (proximal phalanx) (cm): 5.5 cm R Small Finger (proximal phalanx) (cm): 5.4 cm R DPC (cm): 17.5 cm R Distal Wrist Crease (DWC) (cm): 15.5 cm R 4 cm above wrist (cm): 16 cm R 8 cm above wrist (cm): 18.7 cm R 12 cm above wrist (cm): 22.4 cm R 16 cm above wrist (cm): 25.5 cm R 20 cm above wrist (cm): 27.5 cm R 24 cm above wrist (cm): 28.6 cm R 28 cm above wrist (cm): 31 cm R 32 cm above wrist (cm): 33 cm R 36 cm above wrist (cm): 36 cm R 40 cm above wrist (cm): 39 cm R 44 cm above wrist (cm): 39.5 cm L Thumb (proximal phalanx) (cm): 5.8 cm L Index Finger (proximal phalanx) (cm): 5.8 cm L Middle Finger (proximal phalanx) (cm): 5.8 cm L Ring Finger (proximal phalanx) (cm): 5.3 cm L Small Finger (proximal phalanx) (cm): 4.8 cm L DPC (cm): 18 cm L Distal Wrist Crease (DWC) (cm): 16 cm L 4 cm above wrist (cm): 17.5 cm L 8 cm above wrist (cm): 19.6 cm L 12 cm above wrist (cm): 23 cm L 16 cm above wrist (cm): 25.7 cm L 20 cm above wrist (cm): 26 cm L 24 cm above wrist (cm): 26.5 cm L 28 cm above wrist (cm): 29.5 cm L 32 cm above wrist (cm): 32.3 cm L 36 cm above wrist (cm): 36 cm L 40 cm above wrist (cm): 38.5 cm Affected Arm : Right Arm Calculate Volume : Yes R Upper Extremity Volume: 2894.42 L Upper Extremity Volume: 2333.24 Difference in Volume: 561.18 Difference in % : 19.39 UE AROM R Shoulder Flex: 155 Degrees R Shoulder ABduction: 145 Degrees R Shoulder Internal Rotation (Functional): hip R Shoulder External Rotation (Functional): head Education: Education Learning Preferences: Demonstration, Explanation, Performance, Printed Materials Barriers: None Learning/educational needs: Procedure / Surgery, Home exercise program, Lymphedema Program Education Provided: Yes, see treatment interventions for education provided Education Provided To: Patient Education Mode/Type: Demonstration, Explanation/Discussion, Literature/Printed Materials, Performance, Teach Back Response to Education/Teach Back: States/Identifies TREATMENT: OT Treatment Interventions : Self-Detention Management Evaluation Self-Detention Management: 1: educated pt to what is lymphedema - anatomy, risk and risk reduction practices - educational folder issued 2: taught pt self MLD to R arm 3: need for compression bra - maybe a compression shirt in future 4: need for R arm sleeve and glove due to high risk lymphedema - 12 LN, chemo, radiation - current swelling - may be acute post op- incision healing and decreased R shoulder ROM due to healing - will monitior 5: instructed, demonstrated and pt performed modified Br post op A, AAROM exer - caution to not overdo and open wound - handout provided 6: OT performed ANDREW massage - instructed pt to what is ANDREW and how to gentle massage not to open wound Skilled Intervention: Skilled judgment in the selection of proper modification for activity of daily living/home management based on clinical presentation, deficits, and needs. Educated the patient regarding recommendations and provided written instruction to facilitate compliance. Provided written instruction for activities of daily living techniques to facilitate proper performance and compliance. Reviewed patient specific diagnosis in relation to activities of daily living/home management. Activity progression based on professional judgement. Billing * Evaluation Low Complexity: 1 Unit Self-Care/Home Management Treatment Minutes: 35 Total Treatment Time Minutes (timed/untimed): 60 DOMINIQUE Monsalve documented in this encounter [facility] 05-10-2022 History of Present illness Narrative Radiation Oncology - Follow Up Note PATIENT NAME: Kiah Cortes PATIENT DIAGNOSIS/PATIENT IDENTIFICATION: Ms. Cortes is a 67-year-old woman diagnosed with [id number] IDC of the right breast, ER/HI positive HER2 negative status post neoadjuvant chemotherapy under the care of Dr. Dao consisting of TC x4c planning on 02/12/2022 followed by right breast wide local excision and axillary lymph node dissection with Dr. Mercedes on 03/25/2022 showing residual [id number] disease. Pathology described a residual 2.2 cm of intermediate grade IDC with negative margins and 6 of 12 lymph nodes positive for metastatic disease with largest focus of 3.3 cm with extranodal extension. She was referred to the radiation medicine clinic to have a discussion regarding the role of radiation therapy in the postoperative treatment of her locally advanced breast cancer. Ms. Cortes returns to clinic today for follow-up as previously discussed during consultation on 04/22/2022. In the interim, she continues to recover from her surgery and examination today shows improvement with time of consultation however she appears to have an approximate 1 cm area of dehiscence along the lateral aspect of the axillary incision appearing slightly moist with surrounding erythema (potentially fungal). The patient is scheduled to meet with her surgical team later this week on 05/13/2022, and we agreed to hold off on simulation until further evaluation by the surgical team and clearance to proceed with postoperative radiation. The patient is aware to contact the clinic in the interim should any questions or concerns arise. Thank you for allowing us to participate in the care of this patient. Signed by: Reece Leach MD I spent a total of 10 minutes on the date of the service which included preparing to see the patient, [id number] patient care, performing a medically appropriate examination, and counseling and educating the patient/family/caregiver. ADDENDUM: Patient was seen by Gera Phillips on 05/13/2022 with recommendation to delay radiation therapy for 2 weeks to allow for continued healing. The area of dehiscence was probed and felt to be more superficial without a deeper component. The patient will be scheduled return to clinic for simulation accordingly. This document has been created with the use of voice recognition technology. It may contain inaccuracies, misspellings, inaccurate syntax or inappropriate word context that are a result of the inadequacies/shortcomings of said technology/software. documented in this encounter [facility] 05-06-2022 Miscellaneous Notes Called patient regarding below message. Patient states that when she saw Dr. Shaw at [facility], he gave her a script for GoLytely. However, patient is now having colonoscopy done at [place] with Dr. Mahmood and was sent his the instructions for Miralax prep. Patient states she has already purchased the GoLytely from the pharmacy. Informed patient she could go ahead with the GoLytely prep to avoid having to purchase anything else. GoLytely prep instructions sent to patient's [facility]. Instructions reviewed with patient. Patient verbalized understanding. Apolonia Emmanuel RN Patient calling to get clarification on her prep orders for her colonoscopy on 05/24/2022. She has prep orders from Dr. Shaw in [place] and received MYCHART orders from Dr. Mahmood. Which one does she follow? Please advise. documented in this encounter [facility] 04-30-2022 Miscellaneous Notes Patient is aware of below message Please call patient to schedule appt with OT in [place] Please call pt and inform her I spoke with Dr Dao and we would like the pt to consult with the breast OT team at [facility] given her increased risk of lymphedema. Gera Phillips PA-C documented in this encounter [facility] 04-29-2022 History of Present illness Narrative BREAST CANCER POST OPERATIVE FOLLOW-UP SERVICE DATE: 04/29/2022 SURGERY DATE: 03/25/2022 POSTOPERATIVE VISIT #3 SUBJECTIVE: Kiah Cortes is a 66 year old female 5 weeks s/p RIGHT lumpectomy, yuliya business technology professor guided axillary lymph node dissection. She is doing well. She notes thin serous drainage from her axillary incision. She is wearing an ABD pad tucked in her bra. She has seen Dr White postop. 05/10 XRT Simulation scheduled She saw OT locally at [facility]. They told her they were not sure why they were consulted as they have no concerns. OBJECTIVE: PHYSICAL EXAM: 04/29/22 1341 Temp: 36.4 C (97.6 F) TempSrc: Oral Weight: 99.8 kg (220 lb 1.6 oz) Height: 157.5 cm (5' 2 ) The right upper outer breast incision and axillary incision are both healing well. There is a <5mm area of slight axillary incision dehiscence present at the most lateral end of incision. Serous fluid expressed. Silver nitrate applied and covered with 2x2. There is skin irritation present around drain site - dampness appearing. No infection. PATHOLOGICAL STAGE RIGHT BREAST: yp,T2,N2, STAGE: Stage IIIA: (T0, N2, M0) or (T1-T1mi, N2, M0) or (T2, N2, M0) or (T3, N1, M0) or (T3, N2, M0) ASSESSMENT: Kiah Cortes is a 66 year old female 5 weeks s/p RIGHT lumpectomy, yuliya business technology professor guided axillary lymph node dissection (08/09 with VANI) for a ypT2N2, Residual 2.2cm IDC ER/HI+ HER2 negative breast cancer Axillary incision dehiscence - site is within skin crease and difficult to keep dry - silver nitrate applied PLAN: Discussed silver nitrate and she is agreeable to application. Discussed importance of keeping the site dry. Follow up in 2 weeks. Discussed reasoning behind OT consultation given her increased risk of lymphedema given complete ALND and impending radiation. She will continue her arm exercises and monitor and re-establish care with OT locally with any issues. Recommend continued walking and yoga. Breast health recommendations you can employ for your breast cancer journey include routine breast self awareness, clinical breast exams; annual mammography, minimal alcohol use, no tobacco use and 150min / week of aerobic exercise per week as your heart, lungs and joints allow. Wearing a well fitting (as in getting an updated professional fitting if it is has been some time) supportive bra is helpful for most women as well. If you develop new breast concerns, please make an appointment with your breast health team for further evaluation. We are happy to see you any time with any surgical breast questions or concerns. All questions were answered to her satisfaction, she verbalizes understanding and is agreeable to the plan. Gera Phillips PA-C documented in this encounter [facility] 04-27-2022 Miscellaneous Notes FYI: Pt was in our office earlier today. Reports that she had a small amount of purulent drainage from one of her incision lines on her right breast. Notes the area is tender when she puts her right arm down by her side. Small amount of yellow/cream colored drainage noted on telfa pad as well. Pt denies fevers/chills. States she just recently completed an antibiotic. Site was examined. Small area of cream colored drainage noted on the lateral upper portion of pt's right breast. Area slightly reddened. No warmth. Site covered w/ a clean telfa dressing. Advised pt to reach out to your office for further recommendations. Pt verbalizes understanding and agrees. Miriam Nj RN documented in this encounter [facility] 04-27-2022 History of Present illness Narrative [facility] Consultation Note Genetic Counselor: Jj Wallace MS, [facility] Patient: Kiah Cortes Patient Name and confirmed at initiation of visit. Appointment occurred with audiovisual communication through [employer] Virtual Visit. HIGH LEVEL SUMMARY: The patient's personal history is potentially suggestive of a hereditary cancer syndrome. The patient provided informed consent for Custom Cancer Panel through [employer]. Results are expected in 2-3 weeks. IDENTIFICATION AND CHIEF COMPLAINT: Dr. Narendra Dao requested a consultation for genetic counseling and risk assessment for Kiah Cortes, a 67 year old female, for discussion of her personal history of breast cancer. She presents to clinic today to discuss the possibility of a genetic predisposition to cancer, and to further clarify her risks, as well as her family members' risks for cancer. HISTORY OF PRESENT ILLNESS: In summer, at the age of 66, Kiah Cortes was diagnosed with invasive ductal carcinoma of the right breast. This was treated with neoadjuvant chemotherapy and lumpectomy. She will begin with radiation therapy as well. PAST MEDICAL HISTORY Diagnosis Date Asthma Breast cancer (HCC) right breast DMII (diabetes mellitus, type 2) (HCC) 03/19/2022 Fibromyalgia HLD (hyperlipidemia) 03/19/2022 HTN (hypertension) Hypothyroidism 03/19/2022 Migraine Obesity Primary hypertension 03/19/2022 RLS (restless legs syndrome) 03/19/2022 PAST SURGICAL HISTORY Procedure Laterality Date APPENDECTOMY BREAST LUMPECTOMY HX Right 2022 BX OF BREAST; INCISIONAL Right COLONOSCOPY SCREENING LIGATE FALLOPIAN TUBE PAST SURGICAL HISTORY OF Rt Shoulder PAST SURGICAL HISTORY OF Rt knee tendons PAST SURGICAL HISTORY OF Right shoulder tendons SOCIAL HISTORY: Social History Tobacco Use Smoking status: Never Passive exposure: Past Smokeless tobacco: Never Vaping Use Vaping Use: Never used Substance Use Topics Alcohol use: Not Currently Comment: 1 glass of wne a month Drug use: Never FAMILY HISTORY: We obtained a detailed, 4-generation family history. Significant diagnoses are listed below: FAMILY HISTORY Problem Relation Age of Onset Cancer Mother lung Hypertension Mother Heart disease Father Hypertension Father Cancer Sister Cancer Brother brain Cervical Cancer Daughter Lymphoma Daughter A copy of the patient's pedigree will be available under the scanned documents tab following today's visit. GENETIC COUNSELING RISK ASSESSMENT, DISCUSSION, AND SUGGESTED FOLLOW UP: We reviewed the natural history and genetic etiology of sporadic, familial and hereditary cancer syndromes. The patient's personal and family history is potentially suggestive of a hereditary cancer syndrome. The patient meets NCCN HBOC testing criteria based on her personal history of cancer in which testing can aid in systemic therapy decision making. We discussed that identification of a hereditary cancer syndrome may help her care providers tailor her medical management. If a mutation is detected, the patient will be referred back to the referring provider and to any additional appropriate care providers to discuss the relevant options. Inheritance of hereditary cancer syndromes was discussed with the patient. If a mutation is not found in the patient, this will decrease the likelihood of a hereditary cancer syndrome as the explanation for the patient's personal and family history of cancer. However, it cannot completely rule out this possibility. Cancer surveillance options would be discussed for the patient according to the appropriate standard National Comprehensive Cancer Network and [place] Cancer [employer] guidelines, with consideration of their personal and family history risk factors. In this case, the patient will be referred back to their care providers for discussions of management. Based on this assessment of the patient's family and personal history, genetic testing is recommended. The patient was offered Custom Cancer Panel through [employer]. After considering the risks, benefits, and limitations, the patient chose to pursue and provided informed consent for the following testing: Custom Cancer Panel through [employer]. The Custom Cancer Panel includes APC, ANSLEY, AXIN2, BAP1, BARD1, BMPR1A, BRCA1, BRCA2, BRIP1, CDH1, CDK4, CDKN2A, CHEK2, CTNNA1, DDX41, DICER1, EPCAM, FH, FLCN, GREM1, HOXB13, MAX, MEN1, MET, MITF, MLH1, MSH2, MSH3, MSH6, MUTYH, NF1, NTHL1, PALB2, PMS2, POLD1, POLE, POT1, PTCH1, PTEN, RAD51C, RAD51D, RET, SDHA, SDHAF2, SDHB, SDHC, SDHD, SMAD4, SMARCA4, STK11, DEBK546, TP53, TSC1, TSC2, and VHL The Custom Cancer Panel looks at genes associated with inherited breast, ovarian, pancreatic, prostate, colon, uterine, kidney, stomach, and endocrine cancers, as well as inherited colon polyp and melanoma syndromes. We discussed that an NGS panel can rarely result in an unexpected finding in a gene which may or may not be related to the presenting phenotype. Per the patient's request, I will contact her by telephone to discuss these results. A follow up genetic counseling visit will be scheduled if requested. The patient was seen for a total of 25 minutes, greater than 50% of which was spent [id number] counseling. This plan is being carried out under the oversight of Dr. Melanie Heaton. This note will also be sent to the referring provider via the electronic medical record. Jj Wallace MS, [facility] Licensed, Certified Genetic Counselor [facility] CC: Dr. Narendra Heaton documented in this encounter [facility] 04-22-2022 History of Present illness Narrative Images from the original note were not included. Radiation Oncology - New Patient/Consult Note PATIENT NAME: Kiah Cortes PATIENT Signed: Reece Leach MD I spent a total of 60 minutes on the date of the service which included preparing to see the patient, [id number] patient care, and counseling and educating the patient/family/caregiver. This document has been created with the use of voice recognition technology. It may contain inaccuracies, misspellings, inaccurate syntax or inappropriate word context that are a result of the inadequacies/shortcomings of said technology/software. documented in this encounter [facility] 04-20-2022 Miscellaneous Notes FYI: Pt to start lymphedema therapy this Tuesday, 04/23, @ [facility]. Miriam Nj RN documented in this encounter [facility] 04-20-2022 Miscellaneous Notes Order faxed to number below Order placed to the best of my ability. Shahana Mercedes MD Patient called stating the order for her to have therapy needs to be written differently and she could not make an appointment Called [facility]- they state that it must say eval and treat, occupational therapy, for lymphedema They would not take a verbal order to change it- please reorder so patient can make her appointment [facility] ctr: [phone], fax [phone] documented in this encounter [facility] 04-16-2022 History of Present illness Narrative POPULATION HEALTH NAVIGATION OUTREACH Action/ Patient Outreach: Spoke with patient to schedule in RST. Pt declined RST Consult as she will getting locally. Patient Identified by Name and : YES, via phone Outreach Outcome/Action Spoke to patient / parent / legal guardian: Patient declined Did you use a PCP flex slot to schedule this appointment? No Reason for Outreach Care Gap or Scheduling/Wellness visits Payer: Payor: MEDICARE / Plan: MEDICARE A AND B / Product Type: Medicare / Care Gap Reviewed:: Specialty Scheduling Reminder: Reminder note to check Health Maintenance for items below Health Maintenance items due: HBA1C Never done URINE ALBUMIN:CREATININE RATIO Never done DILATED RETINAL EXAM Never done DIABETIC FOOT EXAM Never done LDL CHOLESTEROL Never done SPIROMETRY Never done ANNUAL PCP TEAM CHRONIC DISEASE VISIT Never done HEPATITIS C SCREENING Never done BP CONTROLLED (<130/80) Never done MAMMOGRAM Never done COLORECTAL CANCER SCREENING Never done SHINGRIX VACCINE(1 of 2) due on 11/05/2016 BONE DENSITY Never done ADVANCE DIRECTIVE DISCUSSION Never done DEPRESSION ASSESSMENT Never done Navigation Signature: Andria Wallace Pss April 16, 2022 12:26 PM documented in this encounter [facility] 04-15-2022 History of Present illness Narrative BREAST CANCER POST OPERATIVE FOLLOW-UP SERVICE DATE: 04/15/2022 SURGERY DATE: 03/25/2022 POSTOPERATIVE VISIT #2 SUBJECTIVE: Kiah Cortes is a 66 year old female 3 weeks s/p RIGHT lumpectomy, yuliya business technology professor guided axillary lymph node dissection. She is doing well. Her drain output has been 35-45cc for the past few days. She has seen Dr White postop. 04/22 Dr Leach 04/27 Jj Wallace, genetics She understands she needs to schedule with OT locally. OBJECTIVE: PHYSICAL EXAM: 04/15/22 0750 Weight: 99.8 kg (220 lb) Height: 157.5 cm (5' 2 ) The right upper outer breast incision and axillary incision are both healing well. There is a <1cm area of skin erythema with eschar at the superior/lateral end of incision. Eschar removed. Site re-enforced with a steri strip. Seroma present under both incisions. Drain contains serosanguinous fluid and fibrinous exudate. Drain removed without incident. Dressing applied. PATHOLOGICAL STAGE RIGHT BREAST: yp,T2,N2, STAGE: Stage IIIA: (T0, N2, M0) or (T1-T1mi, N2, M0) or (T2, N2, M0) or (T3, N1, M0) or (T3, N2, M0) ASSESSMENT: Kiah Cortes is a 66 year old female 3 weeks s/p RIGHT lumpectomy, yuliya business technology professor guided axillary lymph node dissection (08/09 with VANI) for a ypT2N2, Residual 2.2cm IDC ER/HI+ HER2 negative breast cancer Drain removed without incident. Dressing applied. Doing wonderfully from a surgical standpoint POST OPERATIVE STATUS: Uncomplicated post-operative course PLAN: Please start Augmentin today. Once at lunch and one at dinner. Please also eat one yogurt daily for the next 30 days. Monitor incisions and call with questions/concerns. The steri strip will fall off on its own. Please see Dr Leach and the genetics team as scheduled. Start walking 10 minutes a day starting tomorrow. After one week, progress to 20 minutes 3x per week and then after another week progress to 30 minutes 3x per week in a safe environment. This can be in increments and not all at one time. Discussed drain site care, s/s seroma, infection. Incision care - start applying a small amount of lotion to the incision site(s) prior to showering, shower, then pat dry with a clean towel. Please do this daily until the glue is removed. Showering, supportive bra, restrictions and signs/symptoms of seroma and infection (painful, red, hot angry breast). If you develop signs and symptoms of infection or seroma, please do not hesitate to call and we are happy to see you. No immersing the breast in water (bath, hot tub, pool, arambula, ocean) for another 4 weeks. Please continue your arm exercises and schedule with OT locally. We recommend that you return to see the surgical team in 2 weeks for incision check and then in 6 months for a clinical breast exam. Breast health recommendations you can employ for your breast cancer journey include routine breast self awareness, clinical breast exams; annual mammography, minimal alcohol use, no tobacco use and 150min / week of aerobic exercise per week as your heart, lungs and joints allow. Wearing a well fitting (as in getting an updated professional fitting if it is has been some time) supportive bra is helpful for most women as well. If you develop new breast concerns, please make an appointment with your breast health team for further evaluation. We are happy to see you any time with any surgical breast questions or concerns. All questions were answered to her satisfaction, she verbalizes understanding and is agreeable to the plan. Gera Phillips PA-C documented in this encounter [facility] 04-15-2022 Instructions Gera Phillips PA-C - 04/15/2022 7:42 AM EST Dear Cortes Thank you for coming to see me and entrusting me with your care. As we discussed today~ Please start Augmentin today. Once at lunch and one at dinner. Please also eat one yogurt daily for the next 30 days. Monitor incisions and call with questions/concerns. The steri strip will fall off on its own. Please see Dr Leach and the genetics team as scheduled. Start walking 10 minutes a day starting tomorrow. After one week, progress to 20 minutes 3x per week and then after another week progress to 30 minutes 3x per week in a safe environment. This can be in increments and not all at one time. Discussed drain site care, s/s seroma, infection. Incision care - start applying a small amount of lotion to the incision site(s) prior to showering, shower, then pat dry with a clean towel. Please do this daily until the glue is removed. Showering, supportive bra, restrictions and signs/symptoms of seroma and infection (painful, red, hot angry breast). If you develop signs and symptoms of infection or seroma, please do not hesitate to call and we are happy to see you. No immersing the breast in water (bath, hot tub, pool, arambula, ocean) for another 4 weeks. Please continue your arm exercises and schedule with OT locally. We recommend that you return to see the surgical team in 2 weeks for incision check and then in 6 months for a clinical breast exam. Breast health recommendations you can employ for your breast cancer journey include routine breast self awareness, clinical breast exams; annual mammography, minimal alcohol use, no tobacco use and 150min / week of aerobic exercise per week as your heart, lungs and joints allow. Wearing a well fitting (as in getting an updated professional fitting if it is has been some time) supportive bra is helpful for most women as well. If you develop new breast concerns, please make an appointment with your breast health team for further evaluation. We are happy to see you any time with any surgical breast questions or concerns. Gera Phillips PA-C Care team: MD Gera Dash MSPAS PA-C Janet Neptune, RN, BSN, CN-BN Zara De Souza MA Contact numbers: Scheduling contact number: [phone] Nurse / clinical questions: [phone] Fax number: [phone] Night/weekends/holidays: [phone] and ask for the Breast Surgeon Pan Operator As you are aware, Patients First is the guiding principle of your Breast Health Team at [facility]. We strive to provide outstanding care and service, supported by our values: Quality and Safety, [place], Teamwork, Empathy, Inclusion and Integrity. If you feel you received outstanding care / service and feel supported by our values, please take a few moments to submit your comments online at [employer] or ask for a card to submit to the [employer] box. Thank you for your time in recognizing those who cared for you during your journey with your breast health team. documented in this encounter [facility] 04-05-2022 Miscellaneous Notes Spoke with patient regarding below Pt stopped in to the office today w/ c/o leaking from her RADHA drain site. Reports that she had to change her surgical pad 4 times yesterday. Site assessed. No redness, warmth, or swelling noted. Opsite and tube intact. Suture on one side looks like it may have come out. Serous sanguinous drainage noted in bulb. Advised pt to contact your office for further instructions. Thanks! Miriam Nj RN documented in this encounter [facility] 04-02-2022 Instructions Narendra Dao MD - 04/02/2022 11:29 AM EST Keep appointment with Dr. Leach RTRebecca after RT is done for discussion of endocrine therapy Labs same day as return Will need colonoscopy with GI Refer brandon Hayes documented in this encounter [facility] 04-02-2022 History of Present illness Narrative Images from the original note were not included. NAME: Sebastian [place] CLINIC NO.: [id number] DATE OF SERVICE: April 02, 2022 (Maddy) Some elements in this clinic note that are critical to medical decision making have been carefully reviewed and included from a prior clinic note dated:February 12, 2022 (Norbert) Referring Provider: Dr. Shaikh West Additional Clinicians involved in Kiah Cortes's care: Dr. Shahana Mercedes DIAGNOSIS: Right breast cancer ASSESSMENT: 66 year old woman with right breast lump diagnosed with Stage cIIA IDC ER/HI++, HER2(0) breast cancer cT2 cN1, cMx in need of consideration for neoadjuvant chemotherapy and resection following completion of chemotherapy. Patient started neoadjuvant Taxotere and cytoxan with GSF on 12/04/21. Tolerated well with minor side effects. After she left the office, labs indicate elevation in BUN and creatinine, likely consistent with dehydration, corrected with hydration. Pulmonary nodule--0.3cm RML nodule on CT chest, repeat imaging following treatment. Thickened L adrenal gland on CTs--consider repeat imaging following treatment. Pre-op Cts with concern for diverticulitis. Will folow with GI. S/p R0 resection with persisting disease following neoadjuvant therapy. Given high risk disease (6 nodes +), would treat in adjuvant setting according to [place] E trial of Abemaciclib + AI PLAN: Keep appointment with Dr. Leach RTC after RT is done for discussion of endocrine therapy Labs same day as return Will need colonoscopy with GI Refer please - [place] HPI: CASE HISTORY: 03/25/2022 Rt Breast Lumpectomy and AxLND - residual IDC with signet ring features and treatment effect. IDC grade 2, 22 mm, margins negative, ypT2,pN2a, ER+HI+, HER2 neg (0), right axilly content - 08/09 nodes involved with macro-metastatic disease. VANI in at least one LN. 02/26/2022 - CT CAP : right axillary LN, subtle subpleural RML nodular opacity and subtle groundglass opacities. Sigmoid colon thickening. 12/04/2021 - 02/12/2022 4 cycles Taxotere + Cytoxan neoadjuvant. 11/27/2021 - NM bone scan - negative 11/20/2021 - CT A/P - negative 11/10/2021 MRI Breasts: - Birads 6 - rt breast - 7cmfn @ 10:00 3.6x3.1x2.5, 3-[address], lft breast Birads2 10/30/2021 CT Chest: multiple rt axillary LN, 0.3 cm right mid-lobe nodule - non-specific. 10/02/2021 US & Diag mammography - Right breast 12 O'Clock, 7 cm from nipple - 2.9 x 2.5 cm mass - x IDC +Axillary LN. G1, ER/HI 90/80% HER2 (I[facility]) = 0 09/30/2021 right breast ultrasound: 2.9 x 2.5 x 2.3 cm mass 8 cm from the nipple at the 9 and 10 o'clock position of the right breast suspicious for malignancy. Suspicious lymph nodes in the right axilla noted. 08/2021 - noted right breast mass on self exam. Updated Visit, April 02, 2022: [place] returns having had her resection last week and soaping machine back tender with drains in place. We will need to discuss adjuvant therapy in more depth as she had fairly significant persistent disease following resection in the resected specimen. I would presume that she fits along side the patient enrolled in the [place] E trial of abemaciclib + AI in such women that had neoadjuvant chemotherapy. We will discuss this more in depth when patient can spend time focusing on discussion and not feeling so uncomfortable. Abemaciclib plus ET demonstrated superior IDFS versus ET alone (P = .01; hazard ratio, 0.75; 95% CI, 0.60 to 0.93), with 2-year IDFS rates of 92.2% versus 88.7%, respectively. She had concern for diverticulitis on CT abdomen prior to surgery and will follow with GI for colonoscopy. Updated Visit, February 12, 2022: Kiah Cortes returns for follow-up and her final treatment with Taxotere and Cytoxan. She is tolerating treatment well. She has some sinus drainage and has been coughing this morning. She denies fevers, chills, night sweats and signs/symptoms of infection. No bleeding or abnormal bruising. Her biggest side effect from treatment is fatigue. Otherwise, no significant side effects. She wishes to proceed with treatment as planned. Updated Visit, February 05, 2022: Here with [place] hands improved Port flush today made her feel dizzy She's more fatigued than expected Looks cristina BP is notably decreased Renal function has dropped acutely. Updated Visit, January 15, 2022: Kiah Cortes here for cycle 3 Taxotere and Cytoxan. Since her last visit she has noticed some peeling of both of her hands. She denies any redness or pain to her hands. She has been keeping her hands well lotion. She also had right heel pain that lasted 2 to 3 days and she described it like stepping on glass or needles. She has had some fatigue. She denies fevers, chills, night sweats and signs/symptoms of infection. No bleeding or abnormal bruising. Overall, she is doing well and wishes to proceed with treatment as planned. 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 Updated Visit, December 14, 2021: [place] returns for jagdish counts and follow up after starting neoadjuvant Taxotere and cyclophosphamide with GFS on 12/04/21. She does report having a headache for 2 days following treatment that was relieved with tylenol. Did have some constipation and hard stools. Had one episode of blood in stool on 12/11/21. None since. No nausea, vomiting or diarrhea. Appetite and taste is down but she is eating. Drinking is fine, but wine and coffee tastes bad. Some dry mouth but drinking at least 80-120cc of water everyday. No fevers, chills, cough, or shortness of breath. Updated Visit, December 04, 2021: [place] returns with [place] her daughter. Reviewed CT Abdomen / Pelvis. Bone scan was negative. Will proceed with treatment. Chaperoned exam notable for 3-4 cm right upper outer quadrant breast mass easily palpable. No palpable axillary LN's. Updated Visit, November 18 2021: [place] returns with her daughter [place] and has seen Dr. Mercedes and completed her MRI as well as CT Chest. Given the number of LN's involved, additional staging studies have been ordered to be completed including NM Bone scan and CT abdomen / Pelvis. Once these are completed and negative, we can proceed with planned neoadjuvant chemotherapy with up to 6 cycles of TC. Aside from being anxious, she is doing well. Initial Visit, October 21, 2021: Kiah Cortes presents today Hematology and Oncology evaluation. She is a 66 year old female who noted a mass on self breast exam in the right breast. 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 She's here with her daughter [place]. She was referred for medical oncology opinion regarding breast cancer. Will need to complete staging and anticipate lisa-adjuvant chemotherapy give peterson disease. FHX cancer: Daughter [place] - had cervical not ovarian Mother had lung cancer Another Daughter had lymphoma REVIEW OF SYSTEMS Per HPI and otherwise negative by full review of organ systems. ECOG PERFORMANCE STATUS: 0 PHYSICAL EXAMINATION: Vitals: BP 130/91 Pulse 110 Temp (Src) 97.3 (Temporal) Resp 16 Ht 5' 2.008 (1.58m) Wt 221 lb 9.6 oz (100.5kg) SpO2 96% BMI 40.52 kg/(m^2). Body surface area is 2.1 meters squared. Exam limited to gross visualization where appropriate due to COVID-19. Gen.: This is an age-appropriate patient in no acute distress. Head: Appears atraumatic with no visible lesions. Eyes: Pupils equally round and reactive to light, extraocular muscles are intact. Neck: Supple. Mouth: Masked. Respiratory: Appears to be respiring comfortably. Neurologic: Nonfocal to gross visualization. Alert and oriented 3. Psychiatric: No evidence of inappropriate anxiety or depression. Skin: Visible areas of skin without rash, lesions, wounds or petechiae. ALLERGIES: ALLERGIES Allergen Reactions Lisinopril Unknown Seasonal Allergies Itching, Other: See Comments MEDICATIONS: albuterol HFA (PROVENTIL HFA, VENTOLIN HFA) 90 mcg/actuation inhaler^INHALE 2 PUFFS 4 TIMES PER DAY NEEDED FOR SHORTNESS OF BREATH OR WHEEZING^Disp: ^Rfl: ondansetron (ZOFRAN) 8 mg tablet^Take 1 tablet by mouth every 8 hours as needed for nausea/vomiting.^Disp: 90 tablet^Rfl: 1 prochlorperazine (COMPAZINE) 10 mg tablet^Take 1 tablet by mouth every 6 hours as needed.^Disp: 100 tablet^Rfl: 1 atorvastatin (LIPITOR) 40 mg tablet^Take 40 mg by mouth once daily.^Disp: ^Rfl: loratadine (CLARITIN) 10 mg tablet^Take 10 mg by mouth once daily.^Disp: ^Rfl: metFORMIN (GLUCOPHAGE) 1,000 mg tablet^Metformin Active 1000 MG PO Every morning May 04, 2021 3:24pm^Disp: ^Rfl: carvedilol (COREG) 25 mg tablet^Take 25 mg by mouth twice daily.^Disp: ^Rfl: acetaminophen (TYLENOL) 325 mg tablet^Take 650 mg by mouth every 6 hours as needed.^Disp: ^Rfl: amLODIPine (NORVASC) 10 mg tablet^Take 10 mg by mouth once daily.^Disp: ^Rfl: levothyroxine sodium (LEVOTHYROXINE ORAL)^Take 50 mcg by mouth once daily.^Disp: ^Rfl: rOPINIRole (REQUIP) 0.25 mg tablet^Take 0.25 mg by mouth three times daily.^Disp: ^Rfl: semaglutide (OZEMPIC) 0.25 mg or 0.5 mg(2 mg/1.5 mL) pen injector^Inject 0.25 mg subcutaneously one time a week.^Disp: ^Rfl: multivitamin/folic acid/biotin (SSCZ-CXHY-DUUUI, QX-OQ-SPXHPH, ORAL)^Take 3 tablets by mouth once daily.^Disp: ^Rfl: LABORATORY VALUES: WBC (k/uL) Date Value 04/02/2022 4.90 RBC (m/uL) Date Value 04/02/2022 3.61 (L) Hemoglobin (g/dL) Date Value 04/02/2022 11.4 (L) Hematocrit (%) Date Value 04/02/2022 35.0 (L) MCV (fL) Date Value 04/02/2022 97.0 MCH (pg) Date Value 04/02/2022 31.6 MCHC (g/dL) Date Value 04/02/2022 32.6 RDW-CV (%) Date Value 04/02/2022 14.5 Platelet Count (k/uL) Date Value 04/02/2022 169 MPV (fL) Date Value 04/02/2022 9.3 Glucose (mg/dL) Date Value 04/02/2022 126 (H) BUN (mg/dL) Date Value 04/02/2022 19 Creatinine (mg/dL) Date Value 04/02/2022 0.85 Sodium (mmol/L) Date Value 04/02/2022 138 Potassium (mmol/L) Date Value 04/02/2022 3.9 Chloride (mmol/L) Date Value 04/02/2022 104 CO2 (mmol/L) Date Value 04/02/2022 26 Protein, Total (g/dL) Date Value 04/02/2022 6.6 Albumin (g/dL) Date Value 04/02/2022 3.8 (L) Calcium, Total (mg/dL) Date Value 04/02/2022 9.8 Alkaline Phosphatase (U/L) Date Value 04/02/2022 91 Bilirubin, Total (mg/dL) Date Value 04/02/2022 0.2 AST (U/L) Date Value 04/02/2022 16 ALT (U/L) Date Value 04/02/2022 12 DIAGNOSIS: (C50.411, Z17.0) Malignant neoplasm of upper-outer quadrant of right breast in female, estrogen receptor positive (HCC) (primary encounter diagnosis) (K57.92) Diverticulitis Plan: CONSULT TO GASTROENTEROLOGY PATH: reviewed today on 12/14/21 Breast, right, at 12:00, 7 cm from the nipple, ultrasound-guided core biopsy ([id number], part A; 10/02/2021): ---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 ---Please see comment. Lymph node, right axillary tail, ultrasound-guided core biopsy ([id number], part B; 10/02/2021): ---Metastatic mammary carcinoma with signet ring features, measuring at least 13 mm in greatest dimension, likely representing a lymph node completely replaced by carcinoma. ---Please see comment. Right breast invasive carcinoma: ER: POSITIVE (100%, strong) HI: POSITIVE (100%, strong) HER2 IHC: NEGATIVE (0) Controls react as expected Right axillary tail metastasis: ER: POSITIVE (100%, strong) HI: POSITIVE (100%, strong) HER2 IHC: NEGATIVE (0) Controls react as expected IMAGING: Bone scan 11/27/21 No suspicious foci of activity. No scintigraphic evidence of osseous metastases. Likely degenerative/arthritic changes as described. CT abdomen and pelvis 11/20/21 . Nonspecific nodular thickening of the left adrenal gland. Consider interval follow-up. 2. Otherwise no evidence of intra-abdominal/intrapelvic metastases. 3. Subcentimeter left hepatic cyst. 4. Sigmoid colon diverticulosis without evidence of diverticulitis. 5. Nonspecific haziness of the mesenteric fat may represent edema or infectious/inflammatory etiologies. CT chest 10/30/21 1. Multiple enlarged right axillary lymph nodes, highly suspicious for neoplastic involvement. 2. A 0.3 cm right middle lobe pulmonary nodule is nonspecific. Continued attention on subsequent studies is suggested. PAST MEDICAL HISTORY Diagnosis Date Asthma Breast cancer (HCC) right breast DMII (diabetes mellitus, type 2) (HCC) 03/19/2022 Fibromyalgia HLD (hyperlipidemia) 03/19/2022 HTN (hypertension) Hypothyroidism 03/19/2022 Migraine Obesity Primary hypertension 03/19/2022 RLS (restless legs syndrome) 03/19/2022 PAST SURGICAL HISTORY Procedure Laterality Date APPENDECTOMY BREAST LUMPECTOMY HX Right 2022 BX OF BREAST; INCISIONAL Right COLONOSCOPY SCREENING LIGATE FALLOPIAN TUBE PAST SURGICAL HISTORY OF Rt Shoulder PAST SURGICAL HISTORY OF Rt knee tendons PAST SURGICAL HISTORY OF Right shoulder tendons Social History Tobacco Use Smoking status: Never Passive exposure: Past Smokeless tobacco: Never Vaping Use Vaping Use: Never used Substance Use Topics Alcohol use: Not Currently Comment: 1 glass of wne a month Drug use: Never FAMILY HISTORY Problem Relation Age of Onset Cancer Mother lung Hypertension Mother Heart disease Father Hypertension Father Cancer Sister Cancer Brother brain I spent a total of 40 minutes on the date of the service which included preparing to see the patient, [id number] patient care, completing clinical documentation, obtaining and/or reviewing separately obtained history, performing a medically appropriate examination, counseling and educating the patient/family/caregiver, ordering medications, tests, or procedures, and independently interpreting results (not separately reported). Narendra Dao MD, CPE Hematology and Oncology Services Provided at: [place], [place] CC: Dr. Reece Zuniga / Dr. Nate Mercedes documented in this encounter [facility] 04-01-2022 Instructions Gera Phillips PA-C - 04/01/2022 2:53 PM EST Dear Sebastian, Thank you for coming to see us today and entrusting us with your breast care! So happy to hear you are doing well! As we discussed at your appointment today: Start walking 10 minutes a day starting tomorrow. After one week, progress to 20 minutes 3x per week and then after another week progress to 30 minutes 3x per week in a safe environment. This can be in increments and not all at one time. Incision care - if the glue is still on your incision in 3 weeks, apply a small amount of lotion to the incision site(s) prior to showering, shower, then pat dry with a clean towel. Please do this daily until the glue is removed. Showering, supportive bra, restrictions and signs/symptoms of seroma and infection (painful, red, hot angry breast). If you develop signs and symptoms of infection or seroma, please do not hesitate to call and we are happy to see you. No immersing the breast in water (bath, hot tub, pool, arambula, ocean) for another 4 weeks. Please continue your arm exercises and schedule with breast occupational therapy. As part of your breast cancer care team, we recommend follow up consultation with our medical oncologist and radiation oncologist for further breast cancer assessment, recommendations. This is scheduled. We recommend that you return to see the surgical team in 2 weeks for drain removal, then 2 additional weeks for incision check and then in 6 months for a clinical breast exam - you may make this appointment on your way out today. Breast health recommendations you can employ for your breast cancer journey include routine breast self awareness, clinical breast exams; annual mammography, minimal alcohol use, no tobacco use and 150min / week of aerobic exercise per week as your heart, lungs and joints allow. Wearing a well fitting (as in getting an updated professional fitting if it is has been some time) supportive bra is helpful for most women as well. If you develop new breast concerns, please make an appointment with your breast health team for further evaluation. We are happy to see you any time with any surgical breast questions or concerns. If you would like to compliment one of our caregivers you encountered today, you may do so at [email or web address]. Thank you for your time in recognizing those who cared for you during your journey with your breast health team. Gera Phillips PA-C Care team: Shahana Mercedes MD, FACS TOM Steinberg PA-C RN, BSN, CN-BN Zara De Souza MA Contact numbers: Scheduling contact number: [phone] Nurse / clinical questions: [phone] Fax number: [phone] Night/weekends/holidays: [phone] and ask for the Breast Surgeon Pan Operator documented in this encounter [facility] 04-01-2022 History of Present illness Narrative BREAST CANCER POST OPERATIVE FOLLOW-UP SERVICE DATE: 04/01/2022 SURGERY DATE: 03/25/2022 POSTOPERATIVE VISIT #1 SUBJECTIVE: Kiah Cortes is a 66 year old female s/p RIGHT lumpectomy, yuliya business technology professor guided axillary lymph node dissection. She is doing well. Her drain output is greater than 60cc over a 24 hour period. OBJECTIVE: PHYSICAL EXAM: The right upper outer breast incision and axillary incision are both healing well. There is no evidence of infection/seroma. Drain contains serosanguinous fluid. Fluid also draining around drain site. Biopatch/tegaderm removed and fresh biopatch/tegaderm dressing applied. New bra supplied. PATHOLOGY REPORT: FINAL DIAGNOSIS A. Right axillary contents, excision: -Macro-metastatic carcinoma with focal treatment effects present in 6 out of 12 lymph nodes, measuring up to 33 mm in greatest dimension (6/12) -Extranodal extension is present in at least one of the lymph nodes, measuring 0.5 mm -Yuliya Mortar Carrier and biopsy clip identified in one of the lymph nodes B. Right breast, lumpectomy: -Residual invasive ductal carcinoma with signet ring features and treatment effects, status post neoadjuvant chemotherapy, see comment and synoptic report -Invasive carcinoma is Suzie grade 2, measures 22 mm in greatest dimension -Ductal carcinoma in situ (DCIS), intermediate nuclear grade, with signet ring features, solid type -All margins are negative for invasive and in-situ carcinoma (both are at least 4 mm away from the closest inferior margin) -Biopsy site changes, Yuliya business technology professor and biopsy clip identified C. Right breast, inferior margin, excision: -Benign breast tissue D. Right breast, superior margin, excision: -Benign breast parenchyma E. Right breast, medial margin, excision: -Benign breast tissue with intraductal papilloma and fibrocystic changes F. Right breast, anterior margin, excision: -Benign breast tissue G. Right breast, posterior margin, excision: -Benign breast tissue H. Right breast, lateral margin, excision: -Benign breast tissue XC 03/31/2022 Diagnosis Comment Immunostains E-cadherin and beta-catenin performed on block B2 show membranous staining in the invasive carcinoma, supporting a ductal phenotype. To rule out apocrine feature, AR (for diagnostic purpose) was also performed on block B2 and shows patchy weak positivity, not supportive for apocrine feature. Laboratory Developed Test (LDT) Disclaimer: Performance characteristics of immunohistochemical, immunofluorescent and chromogenic in-situ hybridization tests have been determined by the performing laboratory within [facility] [place] ([facility], [facility], [facility], [facility], or [facility]) in a manner consistent with CLIA requirements. One or more of these tests have not been cleared or approved by the FDA. [facility] is regulated under CLIA as qualified to perform high-complexity testing. These tests are used for clinical purposes. They should not be regarded as investigational or for research. Positive and negative controls stain appropriately. Synoptic Report INVASIVE CARCINOMA OF THE BREAST: Resection 8th Edition - Protocol posted: 08/27/2020 INVASIVE CARCINOMA OF THE BREAST, RESECTION - All Specimens SPECIMEN Procedure Excision (less than total mastectomy) Specimen Laterality Right TUMOR Histologic Type Invasive ductal carcinoma with signet ring features Histologic Grade (Suzie Histologic Score) Glandular (Acinar) / Tubular Differentiation Score 3 Nuclear Pleomorphism Score 2 Mitotic Rate Score 1 Overall Grade Grade 2 (scores of 6 or 7) Tumor Size Greatest dimension of largest invasive focus (Millimeters): 22 mm Tumor Focality Single focus of invasive carcinoma Ductal Carcinoma In Situ (DCIS) Present Negative for extensive intraductal component (EIC) Lobular Carcinoma In Situ (LCIS) Not identified Lymphovascular Invasion Not identified Dermal Lymphovascular Invasion No skin present Microcalcifications Present in non-neoplastic tissue Treatment Effect in the Breast Probable or definite response to presurgical therapy in the invasive carcinoma Treatment Effect in the Lymph Nodes Probable or definite response to presurgical therapy in metastatic carcinoma MARGINS Margin Status for Invasive Carcinoma All margins negative for invasive carcinoma Distance from Invasive Carcinoma to Closest Margin Greater than: 4 mm Closest Margin(s) to Invasive Carcinoma Inferior Margin Status for DCIS All margins negative for DCIS Distance from DCIS to Closest Margin Greater than: 4 mm Closest Margin(s) to DCIS Inferior REGIONAL LYMPH NODES Regional Lymph Node Status Tumor present in regional lymph node(s) Number of Lymph Nodes with Macrometastases 6 Number of Lymph Nodes with Micrometastases 0 Number of Lymph Nodes with Isolated Tumor Cells 0 Size of Largest [place] Metastatic Deposit 33 mm Extranodal Extension Present, 2 mm or less Total Number of Lymph Nodes Examined (sentinel and non-sentinel) 12 Number of [place] Nodes Examined 0 PATHOLOGIC STAGE CLASSIFICATION (pTNM, AJCC 8th Edition) Reporting of pT, pN, and (when applicable) pM categories is based on information available to the pathologist at the time the report is issued. As per the AJCC (Chapter 1, 8th Ed.) it is the managing physician s responsibility to establish the final pathologic stage based upon all pertinent information, including but potentially not limited to this pathology report. TNM Descriptors y (post-treatment) pT Category pT2 pN Category pN2a Breast Biomarker Testing Performed on Previous Biopsy Estrogen Receptor (ER) Status Positive (greater than 10% of cells demonstrate nuclear positivity) Percentage of Cells with Nuclear Positivity 91-100% Breast Biomarker Testing Performed on Previous Biopsy Progesterone Receptor (PgR) Status Positive Percentage of Cells with Nuclear Positivity 91-100% Breast Biomarker Testing Performed on Previous Biopsy HER2 (by immunohistochemistry) Negative (Score 0) Testing Performed on block B2 Comment(s) Fuel Cell Binder tumor block: B2. PATHOLOGICAL STAGE RIGHT BREAST: yp,T2,N2, STAGE: Stage IIIA: (T0, N2, M0) or (T1-T1mi, N2, M0) or (T2, N2, M0) or (T3, N1, M0) or (T3, N2, M0) ASSESSMENT: Kiah Cortes is a 66 year old female s/p RIGHT lumpectomy, yuliya business technology professor guided axillary lymph node dissection (08/09 with VANI) for a ypT2N2, Residual 2.2cm IDC ER/HI+ HER2 negative breast cancer Doing wonderfully from a surgical standpoint POST OPERATIVE STATUS: Uncomplicated post-operative course PLAN: The pathology report was discussed in detail with the patient and her daughter. All questions were answered to their satisfaction. As we discussed at your appointment today: Consult to genetics given residual disease after chemotherapy. Order placed. Start walking 10 minutes a day starting tomorrow. After one week, progress to 20 minutes 3x per week and then after another week progress to 30 minutes 3x per week in a safe environment. This can be in increments and not all at one time. Incision care - if the glue is still on your incision in 3 weeks, apply a small amount of lotion to the incision site(s) prior to showering, shower, then pat dry with a clean towel. Please do this daily until the glue is removed. Showering, supportive bra, restrictions and signs/symptoms of seroma and infection (painful, red, hot angry breast). If you develop signs and symptoms of infection or seroma, please do not hesitate to call and we are happy to see you. No immersing the breast in water (bath, hot tub, pool, [place], ocean) for another 4 weeks. Please continue your arm exercises and schedule with breast occupational therapy. As part of your breast cancer care team, we recommend follow up consultation with our medical oncologist and radiation oncologist for further breast cancer assessment, recommendations. This is scheduled. We recommend that you return to see the surgical team in 2 weeks for drain removal, then 2 additional weeks for incision check and then in 6 months for a clinical breast exam - you may make this appointment on your way out today. Breast health recommendations you can employ for your breast cancer journey include routine breast self awareness, clinical breast exams; annual mammography, minimal alcohol use, no tobacco use and 150min / week of aerobic exercise per week as your heart, lungs and joints allow. Wearing a well fitting (as in getting an updated professional fitting if it is has been some time) supportive bra is helpful for most women as well. If you develop new breast concerns, please make an appointment with your breast health team for further evaluation. We are happy to see you any time with any surgical breast questions or concerns. All questions were answered to her satisfaction, she verbalizes understanding and is agreeable to the plan. Gera Phillips PA-C documented in this encounter [facility] 03-25-2022 Note HNO ID: [id number] Author: Mignon Strong APRN.LIVESTOCK CARETAKER Service: ? Author Type: Nurse Cornice Maker Type: Anesthesia Procedure Notes Filed: 03/25/2022 8:10 AM Note Text: ANESTHESIOLOGY PROCEDURE NOTE Airway General Information Procedure Start Time/Medication Administration: 03/25/2022 7:43 AM Patient location during procedure: OR Staffing LIVESTOCK CARETAKER: Mignon Strong APRN.LIVESTOCK CARETAKER Performed by: LIVESTOCK CARETAKER Indications and Patient Condition Indications for airway management: anesthesia Preoxygenated: yes anesthesia circuit Patient position: sniffing Method: asleep Difficult Mask: No Final Airway Details Final airway type: supraglottic airway Number of attempts at approach: 1 Final Supraglottic Airway: IGEL Size 4 Seal Adequate: yes Airway not difficult SIGNATURE: Mignon Strong APRN.LIVESTOCK CARETAKER PATIENT NAME: Kiah Cortes DATE: March 25, 2022 TIME: 8:09 AM CSN: [id number] [facility] 03-24-2022 Nurse Note Patient was contacted via telephone today for pre-operative teaching for breast surgery. All questions were answered. Patient has arrival time and to report to radiology dept for sentinel node injections. Patient states understanding of and is in agreement with the procedure listed below AMBULATORY PATIENT EDUCATION NOTE DIAGNOSIS: right breast cancer EDUCATION TOPIC: PROCEDURE / SURGERY: Pre Procedure Teaching: Right yuliya business technology professor lump, reverse mapping, axillary lymph node dissection READINESS TO LEARN COGNITIVE ABILITY: Alert and oriented MOTIVATION TO LEARN: Eager and interested FAMILY SUPPORT: daughter present INSTRUCTION PROVIDED TO: Patient PATIENT LEARNS BEST BY: Individual Instruction Written Instruction- Hand-outs Verbal Instruction Demonstration FACTORS AFFECTING LEARNING: None,asking questions PHYSICAL LIMITATIONS AFFECTING LEARNING: None TEACHING POINTS: What to expect before surgery, the day of surgery, after surgery and upon discharge to home. Activity with attention to post operative range of motion exercises, deep breathing and walking. Nutrition and hydration Pain control Wound care Drain care: Reinforcement of measuring drainage, dressing change at drain site, caution to blocked drain, leaking at drain site or swelling. Lymphedema precautions LEARNING RESPONSE METHOD OF INSTRUCTION: Individual instruction Written instruction- handouts Verbal instruction PATIENT / FAMILY RESPONSE: Verbalizes understanding of all teaching points and information received today Patient will receive the [employer] Lymphedema booklet after surgery if necessary. FOLLOW-UP PLAN: Post-op as scheduled Patient instructed to call with any further issues documented in this encounter [facility] 03-22-2022 History of Present illness Narrative Images from the original note were not included. DEPARTMENT OF GASTROENTEROLOGY AND HEPATOLOGY [facility] OUTPATIENT VISIT DATE March 22, 2022 OUTPATIENT VISIT TYPE NEW Patient: Kiah Cortes Medical Record: [id number] Reason for Consultation: Opinion/Advice regarding diverticulitis at the request of Dipti Merritt APRN. My recommendations will be communicated by way of the shared medical record. Assessment IMPRESSION Kiah Cortes is a 66 year old female who is seen in consultation for diverticulitis. Medical history significant for breast cancer on chemotherapy (Taxotere and Cytoxan). Had CT for staging of disease which suggested sigmoid thickening. Differential includes infectious colitis, diverticulitis, taxotere induced colitis. Suspect uncomplicated diverticulitis. She has not had a colonoscopy in over 10 years PLAN - Colonoscopy in 2-4 weeks for follow up of diverticulitis Plan is to follow up as needed (prn). Jonny Shaw MD Associate Staff, Gastroenterology Division of Neurogastroenterology & Motility Digestive Diseases & Surgery [place] [facility] I spent a total of 30 minutes on the date of the service which included preparing to see the patient, [id number] patient care, completing clinical documentation, obtaining and/or reviewing separately obtained history, performing a medically appropriate examination, counseling and educating the patient/family/caregiver, ordering medications, tests, or procedures, communicating with other HCPs (not separately reported), independently interpreting results (not separately reported), communicating results to the patient/family/caregiver, and care coordination (not separately reported). HISTORY OF PRESENT ILLNESS: Kiah Cortes is a 66 year old female who is seen in consultation for diverticulitis. Medical history significant for breast cancer on chemotherapy (Taxotere and Cytoxan). Had CT for staging of disease which suggested sigmoid thickening. REVIEW OF SYSTEMS: Review of Systems Constitutional: Negative for chills and fever. Respiratory: Negative for cough. Cardiovascular: Negative for chest pain. Gastrointestinal: Negative for abdominal pain, blood in stool, constipation, diarrhea, nausea and vomiting. Endocrine: Negative. Genitourinary: Negative. Musculoskeletal: Negative. Allergic/Immunologic: Negative. Neurological: Negative. Hematological: Negative. Psychiatric/Behavioral: Negative. All other systems were reviewed and found to be negative. I have confirmed and edited as necessary, the PFSH and ROS obtained by others. Past Medical History: PAST MEDICAL HISTORY Diagnosis Date Asthma Breast cancer (HCC) right breast DMII (diabetes mellitus, type 2) (HCC) 03/19/2022 Fibromyalgia HLD (hyperlipidemia) 03/19/2022 HTN (hypertension) Hypothyroidism 03/19/2022 Migraine Obesity Primary hypertension 03/19/2022 RLS (restless legs syndrome) 03/19/2022 Past Surgical History: PAST SURGICAL HISTORY Procedure Laterality Date APPENDECTOMY BX OF BREAST; INCISIONAL Right COLONOSCOPY SCREENING LIGATE FALLOPIAN TUBE PAST SURGICAL HISTORY OF Rt Shoulder PAST SURGICAL HISTORY OF Rt knee tendons PAST SURGICAL HISTORY OF Right shoulder tendons Family History: FAMILY HISTORY Problem Relation Age of Onset Cancer Mother lung Hypertension Mother Heart disease Father Hypertension Father Cancer Sister Cancer Brother brain Social History: Social History Tobacco Use Smoking status: Never Passive exposure: Past Smokeless tobacco: Never Vaping Use Vaping Use: Never used Substance Use Topics Alcohol use: Yes Alcohol/week: 1.0 standard drink Types: 1 Glasses of wine per week Drug use: Never Allergies: ALLERGIES Allergen Reactions Lisinopril Unknown Seasonal Allergies Itching, Other: See Comments Medications: Current Outpatient Medications Medication Sig Dispense Refill albuterol HFA (PROVENTIL HFA, VENTOLIN HFA) 90 mcg/actuation inhaler INHALE 2 PUFFS 4 TIMES PER DAY NEEDED FOR SHORTNESS OF BREATH OR WHEEZING multivitamin/folic acid/biotin ([id number], [id number], ORAL) Take 3 tablets by mouth once daily. ondansetron (ZOFRAN) 8 mg tablet Take 1 tablet by mouth every 8 hours as needed for nausea/vomiting. 90 tablet 1 prochlorperazine (COMPAZINE) 10 mg tablet Take 1 tablet by mouth every 6 hours as needed. 100 tablet 1 atorvastatin (LIPITOR) 40 mg tablet Take 40 mg by mouth once daily. loratadine (CLARITIN) 10 mg tablet Take 10 mg by mouth once daily. metFORMIN (GLUCOPHAGE) 1,000 mg tablet Metformin Active 1000 MG PO Every morning May 04, 2021 3:24pm carvedilol (COREG) 25 mg tablet Take 25 mg by mouth twice daily. acetaminophen (TYLENOL) 325 mg tablet Take 650 mg by mouth every 6 hours as needed. amLODIPine (NORVASC) 10 mg tablet Take 10 mg by mouth once daily. levothyroxine sodium (LEVOTHYROXINE ORAL) Take 50 mcg by mouth once daily. rOPINIRole (REQUIP) 0.25 mg tablet Take 0.25 mg by mouth three times daily. semaglutide (OZEMPIC) 0.25 mg or 0.5 mg(2 mg/1.5 mL) pen injector Inject 0.25 mg subcutaneously one time a week. No current facility-administered medications for this visit. Facility-Administered Medications Ordered in Other Visits Medication Dose Route Frequency Provider Last Rate Last Admin lidocaine 20 mg/mL (2 %) injection (XYLOCAINE) X (OR/PROCEDURE) PRN Belia Mazariegos MD 5 mL at 12/01/21 0922 lidocaine 20 mg/mL (2 %) injection (XYLOCAINE) X (OR/PROCEDURE) PRN Belia Mazariegos MD 5 mL at 12/01/21 0947 PHYSICAL EXAM Vital Signs: There were no vitals taken for this visit. Physical Exam Constitutional: Appearance: Normal appearance. HENT: Head: Normocephalic and atraumatic. Eyes: Pupils: Pupils are equal, round, and reactive to light. Cardiovascular: Rate and Rhythm: Normal rate and regular rhythm. Pulses: Normal pulses. Heart sounds: Normal heart sounds. Pulmonary: Effort: Pulmonary effort is normal. Breath sounds: Normal breath sounds. Abdominal: General: Abdomen is flat. Bowel sounds are normal. There is no distension. Palpations: Abdomen is soft. Tenderness: There is no abdominal tenderness. Musculoskeletal: General: Normal range of motion. Cervical back: Normal range of motion. Skin: General: Skin is warm and dry. Neurological: Mental Status: She is alert and oriented to person, place, and time. Psychiatric: Mood and Affect: Mood normal. LABS: I have personally reviewed all pertinent labs on the date of the encounter. IMAGING: I have personally reviewed all pertinent imaging on the date of the encounter. CT A/P 02/26/22: 1. New enhancement of a sigmoid colon diverticula with adjacent fat stranding worrisome for diverticulitis. No evidence of abscess formation. Consider follow-up to complete resolution. 2. Nonspecific nodular thickening of the left adrenal gland, stable. 3. Subcentimeter left hepatic cyst, stable. 4. Nonspecific haziness of the mesenteric fat may represent edema or infectious/inflammatory etiologies, stable. PROCEDURES: I have personally reviewed all pertinent procedures on the date of the encounter. SIGNATURE: Jonny Shaw MD PATIENT NAME: Kiah Cortes DATE OF 1955 documented in this encounter [facility] 03-22-2022 Instructions Jonny Shaw MD - 03/22/2022 9:56 AM EST Images from the original note were not included. Bowel Preparation Instructions for: Golytely, Nulytely, Trilyte or Colyte (polyethylene glycol 3350 and electrolytes) IF YOU DO NOT FOLLOW THESE DIRECTIONS, YOUR COLONOSCOPY WILL BE CANCELLED. Colbert Instructions: Your bowel must be empty so that your doctor can clearly view your colon. Follow all of the instructions in this handout EXACTLY as they are written. Do NOT eat any solid food the ENTIRE day before your colonoscopy. Drink only clear liquids. Buy your bowel preparation at least 5 days before your colonoscopy. TRANSPORTATION on the Day of Your Exam A responsible person MUST be present with you at Check In prior to your colonoscopy and REMAIN in the endoscopy area until you are discharged. You are NOT ALLOWED to drive, take a taxi or bus, or leave the Endoscopy Center ALONE. If you do not have a responsible driver sales (family member or friend) with you to take you home, your exam cannot be done with sedation and will be cancelled. Please bring a list of all of your current medications, including any Over-the Counter medications with you. Medications If you take insulin, diabetic medications or blood thinners such as Coumadin (warfarin), Plavix (clopidogrel), Ticlid (ticlopidine hydrochloride), Agrylin (anagrelide), Xarelto (Rivaroxaban), Pradaxa (Dabigatran), Eliquis (Apixaban), and Effient (Prasugrel). You MUST call the doctors who orders those medicines for instructions on altering the dosage before your colonoscopy. All other medications should be taken the day of the exam with a sip of water including ASPIRIN. Five (5) Days Before Your Colonoscopy Do NOT take medicines that stop diarrhea - such as Imodium, Kaopectate, or Pepto Bismol. Do NOT take fiber supplements - such as Metamucil, Citrucel, or Perdiem. Do NOT take products that contain iron - such as multi-vitamins (the label lists what is in the products). Do NOT take Vitamin E. Buy the prescription bowel preparation solution at your local pharmacy [facility]. 1 01/2019 Bowel Preparation Instructions for: Golytely, Nulytely, Trilyte or Colyte (polyethylene glycol 3350 and electrolytes) Three (3) Days Before Your Colonoscopy Do NOT eat high-fiber foods - such as popcorn, beans, seeds (flax, sunflower, quinoa), multigrain bread, nuts, salad/vegetables, or fresh and dried fruit. One (1) Day Before Your Colonoscopy Only drink clear liquids the ENTIRE DAY before your colonoscopy. Do NOT eat any solid foods. Drink at least 8 ounces of clear liquids every hour after waking up. The clear liquids you can drink include: Clear Liquid (NO RED LIQUIDS) DO NOT DRINK Gatorade, Pedialyte or Powerade Clear broth or bouillon Coffee or tea (no milk or non-dairy creamer) Carbonated and non-carbonated soft drinks Nikunj-Aid or other fruit flavored drinks Strained fruit juices (no pulp) Jell-O, popsicles, hard candy Water Alcohol Milk or non-dairy creamers Noodles or vegetables in soup Juice with pulp Liquid you cannot see through Do not use tobacco/vaping products The bowel preparation solution will be consumed in two parts. Mix the solution the evening before your colonoscopy and refrigerate before drinking. You may add the flavor pack that came with the bowel preparation. Do NOT add ice, sugar or any other flavorings to the solution. Part 1 At 6:00 PM - Evening before your colonoscopy Drink an 8-oz glass of bowel preparation every 10 minutes for a total of 8 glasses. You may continue to drink clear liquids until midnight. Part 2 On the day of your colonoscopy you may drink clear liquids up to (three) 3 hours before your procedure. 4 1/2 hours before your colonoscopy Drink an 8-oz glass of bowel preparation every 10 minutes for a total of 8 glasses. Fifteen (15) minutes later, drink an 8-oz glass of clear liquids every 15 minutes for a total of 2 glasses. You may continue to drink clear liquids up to (three) 3 hours before your exam. 2 01/2019 documented in this encounter [facility] 03-19-2022 History and physical note HISTORY AND PHYSICAL EXAMINATION SERVICE DATE: 03/19/2022 SERVICE TIME: 11:50 AM PRIMARY CARE PHYSICIAN: Shaikh Yumiko MD REASON FOR VISIT: Kiah Cortes is a 66 year old female who is scheduled for LUMPECTOMY BREAST, EXCISION BREAST LESION IDENTIFIED BY PREOPERATIVE PLACEMENT RADIOLOGICAL MARKER, OPEN, SINGLE LESION, LYMPHADENECTOMY AXILLARY COMPLETE ( RIGHT) at the request of Dr. Shahana Mercedes for consultation. My final recommendation will be communicated back to the requesting physician by way of shared medical record or letter. Subjective CHIEF COMPLAINT: surgery HPI: Pt. presenting with history of Malignant neoplasm of upper-outer quadrant of right breast in female, estrogen receptor positive with Breast cancer metastasized to axillary lymph node, right. Pt. completed Taxotere and Cytoxan 02/12/2022. She has a [employer] MEDPORT. Pt. is recommended for surgery. Pt. currently denies any pain. PAST MEDICAL HISTORY Diagnosis Date Asthma Breast cancer (HCC) right breast DMII (diabetes mellitus, type 2) (HCC) 03/19/2022 Fibromyalgia HLD (hyperlipidemia) 03/19/2022 HTN (hypertension) Hypothyroidism 03/19/2022 Migraine Obesity Primary hypertension 03/19/2022 RLS (restless legs syndrome) 03/19/2022 PAST SURGICAL HISTORY Procedure Laterality Date APPENDECTOMY BX OF BREAST; INCISIONAL Right COLONOSCOPY SCREENING LIGATE FALLOPIAN TUBE PAST SURGICAL HISTORY OF Rt Shoulder PAST SURGICAL HISTORY OF Rt knee tendons PAST SURGICAL HISTORY OF Right shoulder tendons FAMILY HISTORY Problem Relation Age of Onset Cancer Mother lung Hypertension Mother Heart disease Father Hypertension Father Cancer Sister Cancer Brother brain SOCIAL HISTORY: Social History Tobacco Use Smoking status: Never Passive exposure: Past Smokeless tobacco: Never Vaping Use Vaping Use: Never used Substance Use Topics Alcohol use: Yes Alcohol/week: 1.0 standard drink Types: 1 Glasses of wine per week Drug use: Never Prior to Admission medications as of 03/19/22 1112 Medication Sig Last Dose Taking albuterol HFA (PROVENTIL HFA, VENTOLIN HFA) 90 mcg/actuation inhaler INHALE 2 PUFFS 4 TIMES PER DAY NEEDED FOR SHORTNESS OF BREATH OR WHEEZING Taking Yes ondansetron (ZOFRAN) 8 mg tablet Take 1 tablet by mouth every 8 hours as needed for nausea/vomiting. Taking Yes prochlorperazine (COMPAZINE) 10 mg tablet Take 1 tablet by mouth every 6 hours as needed. Taking Yes atorvastatin (LIPITOR) 40 mg tablet Take 40 mg by mouth once daily. Taking Yes loratadine (CLARITIN) 10 mg tablet Take 10 mg by mouth once daily. Taking Yes metFORMIN (GLUCOPHAGE) 1,000 mg tablet Metformin Active 1000 MG PO Every morning May 04, 2021 3:24pm Taking Yes carvedilol (COREG) 25 mg tablet Take 25 mg by mouth twice daily. Taking Yes acetaminophen (TYLENOL) 325 mg tablet Take 650 mg by mouth every 6 hours as needed. Taking Yes amLODIPine (NORVASC) 10 mg tablet Take 10 mg by mouth once daily. Taking Yes levothyroxine sodium (LEVOTHYROXINE ORAL) Take 50 mcg by mouth once daily. Taking Yes rOPINIRole (REQUIP) 0.25 mg tablet Take 0.25 mg by mouth three times daily. Taking Yes semaglutide (OZEMPIC) 0.25 mg or 0.5 mg(2 mg/1.5 mL) pen injector Inject 0.25 mg subcutaneously one time a week. Taking Yes multivitamin/folic acid/biotin (FEFG-[id number]-[id number], WU-QG-CZAVNK, ORAL) Take 3 tablets by mouth once daily. No medication comments found. ALLERGIES Allergen Reactions Lisinopril Unknown Seasonal Allergies Itching, Other: See Comments COVID VACCINATION STATUS: Fully vaccinated REVIEW OF SYSTEMS: PAIN ASSESSMENT: General: No weight loss, malaise or fevers. Neuro: No history of TIA's, stroke, PARAFFIN MACHINE OPERATOR tumor, impaired sensorium, hemiplegia, paraplegia or quadraplegia. No neurological symptoms or problems. Respiratory: No history of current cough or dyspnea, or pneumonia in the past 6 weeks. .(+) asthma Cardiovascular: Negative for CAD, Chest Pain, CHF, DVT/PE(+) HTN,HLD GI: No history of GI symptoms or problems. No history of esophageal varices, recent ascites, or ETOH greater than 2 drinks per day. : No history of dysuria, frequency or incontinence,, stones or chronic kidney disease CAREER BASED INTERVENTION COORDINATOR: Negative for abnormal vaginal bleeding, abnormal vaginal discharge. : N/A, No LMP recorded. Patient is postmenopausal. Endocrine: Diabetes Mellitus on oral agent, Hypothyroidism Hematology: No history of bleeding or clotting disorder. Pt is not taking anti-coagulation or platelet medications. No history of hematological symptoms or problems. Oncology: See HPI Psych: No history of psychiatric symptoms or problems. Musculoskeletal: Back pain Skin: Negative for lesions, rash and itching. Objective PHYSICAL EXAM: VITALS: BP 110/56[map 68[ Pulse 77 Temp (Src) 97 (Temporal Artery) Resp 16 Ht 5' 2 (1.58m) Wt 225 lb (102.1kg) SpO2 96% BMI 41.14 kg/(m^2). General: Alert and oriented, No acute distress, Morbidly obese Skin: Normal color, no rash, no lesions. HEENT: EOM, pupils equal, round and reactive.Oropharynx clear. Neck Supple Cardiovascular: Normal S1 & S2, no rubs, murmurs or gallops. No JVD. Pulse regular. Lungs: Normal breath sounds, no wheezes or crackles., No chest deformities or chest wall tenderness. W MEDPORT Abdomen: Soft, non-tender, no rigidity. Extremities: No deformity, no edema or tenderness, no joint swelling or clubbing. Neurological: Normal cognition and motor skills. Gait normal. No weakness or sensory deficit. Pulses: Carotid and radial pulses normal +2. Diagnostic tests reviewed for today's visit: Lab Value Units Date High Low HB 12.0 g/dL 03/19/2022 15.5 11.5 HCT 36.8 % 03/19/2022 46.0 36.0 WBC 6.78 k/uL 03/19/2022 11.00 3.70 PLT 222 k/uL 03/19/2022 400 150 NA 139 mmol/L 02/26/2022 144 136 K 4.2 mmol/L 02/26/2022 5.1 3.7 GLUC 121 mg/dL 02/26/2022 99 74 BUN 18 mg/dL 02/26/2022 21 7 CREAT 0.90 mg/dL 02/26/2022 0.96 0.58 PTSEC No results within date range. INR No results within date range. APTT No results within date range. ALT 15 U/L 02/26/2022 38 7 AST 17 U/L 02/26/2022 35 13 TBILI 0.4 mg/dL 02/26/2022 1.3 0.2 TSH No results within date range. Lab Value Units Date High Low HCGQT No results within date range. UHCG No results within date range. HCG, BODY* No results within date range. Lab Value Units Date High Low ABORHD No results within date range. ABSCREEN No results within date range. No results found for: HBA1C 04/29/2021 EKG: SR ( scanned into [facility]) IN CARE EVERYWHERE 02/08/2022 HbA1c (Bld) [Mass fraction] 7.5 % TSH on 02-08-2022 TSH 1.633 uIU/mL 04/29/2021 ECHO: CONCLUSION: 1. Normal ventricular systolic function. LVEF is 65%. 2. Mild aortic regurgitation. 3. Normal right-sided pressures. 4. No pericardial effusion. 5. Moderate left atrial dilatation. __ 02/26/2022 CT Chest: IMPRESSION: 1. Mild to moderate right axillary lymphadenopathy, some are stable and some have decreased in size since 10/30/21. 2. Subtle subpleural right middle lobe nodular opacity and subtle groundglass opacities in the right lung, less conspicuous. Consider interval follow-up. RESULT: Limitations: Streak artifact from the right shoulder arthroplasty obscure portions of the thorax.. Lines, tubes, and devices: Left-sided Port-A-Cath. Lung parenchyma and airways: Right lower lobe paraspinal scarring is stable. Mild subpleural groundglass opacities in the right lateral lung field (4:81, 98, 105) less conspicuous. Subtle 2-3 mm subpleural right middle lobe nodular opacity (4:117), less conspicuous. Streaky scarring in the lingula, stable. No new airspace opacities. The central airways are patent. Pleural space: No pleural effusion. No pleural thickening. Lower neck, lymph nodes, and mediastinum: The imaged thyroid gland is normal. Right axillary lymphadenopathy is again noted. For example: * 2.5 x 1.6 cm right axillary lymph node with adjacent postoperative change (3:70), previously 3.0 x 1.7 cm, stable * 1.4 x 0.9 cm right axillary lymph node more anteriorly (3:63), previously 1.7 x 1.2 cm, decreased in size and no longer meeting CT criteria for pathologic enlargement. Heart, pericardium, and thoracic vessels: The thoracic aorta and main pulmonary artery are normal in caliber. Heart is mild to moderately enlarged. Atherosclerotic coronary artery calcifications are noted. No pericardial effusion or thickening. Bones and soft tissues: Right shoulder arthroplasty. No new osseous abnormalities. Assessment/Plan Primary hypertension Assessment: Managed with med Date: BP: 03/19/2022 110/56[map 68[ 03/11/2022 120/60 Stable. HLD (hyperlipidemia) Assessment: managed with statin Hypothyroidism Assessment: Managed with med Stable. DMII (diabetes mellitus, type 2) (HCC) Assessment: managed with oral med and injection 02/08/2022 HgbA1c 7.5% Monitored by PCP Aortic regurgitation Assessment: per 04/29/2021 ECHO Mild aortic regurgitation. Asymptomatic Mild intermittent asthma without complication Assessment: reports cold weather induced, managed with Albuterol inhaler- currently using once/day Stable. RLS (restless legs syndrome) Assessment: managed with Requip Monitored by PCP Morbid obesity (HCC) Assessment: Body mass index is 41.15 kg/m . Weight reduction encouraged. Anemia Assessment: completed chemotherapy 02/12/2022 Follows with Hem/Onc Currently Asymptomatic updated CBC METS: Take care of self; that is eating, dressing, bathing, using the toilet (2.75 METs) Walk a block or two on level ground (2.75 METs) Do moderate work around the house such as vacuuming, sweeping floors, or carrying in groceries (3.50 METs) Climb a flight of stairs or walk up a hill (5.50 METs) Patient denies any chest pain or undue shortness of breath with the above physical activity. Climbs stairs and does laundry in basement ASA Class: 3 ANESTHESIA FINDINGS: Intubation History: No history of difficult intubation Significant Anesthesia Considerations: None LCW MEDPORT Airway Exam: General: Obese appearance Mallampati Score is CLASS III ULBT: Class II - Lower incisors can bite the upper lip below the flores line Neck:Normal appearance but extra tissue, FROM. Distance from hyoid to mentum during neck extension is at least 3 finger breaths Mouth: Normal tongue size and Mouth opening greater than 2 finger breaths Dentition: Intact and Caps/crowns Airway History: No abnormal airway history Sleep Apnea Probability Snores loudly: No Tired, fatigued or sleepy in daytime: No Stops breathing or choking/gasping during sleep: No High blood pressure: Yes Sleep Apnea Probability Score 03/15/2022 Sleep Apnea Screen V2 42 (Sleep study not recommended) PLAN This patient is optimally prepared for surgery. CONSULTS: Patient does not require consults for optimization at this time. The Following Tests/Procedures Have Been Initiated: Orders Placed This Encounter CBC Standing Status: Future Number of Occurrences: 1 Standing Expiration Date: 05/19/2022, EKG not indicated per [facility] protocol See above for additional results Planned Anesthetic: General Instructions Given to Patient: Instructions located in the after visit summary. Patient given verbal and written preop instructions and voices comprehension and compliance. SIGNATURE: Muna Flores APRN.CNP PATIENT NAME: Kiah Cortes DATE: March 19, 2022 TIME: 11:50 AM documented in this encounter [facility] 03-18-2022 Instructions Muna Flores APRN.CNP - 03/18/2022 10:05 PM EST PATIENT PREOPERATIVE INSTRUCTIONS Shahana Mercedes MD has scheduled you for your procedure at this surgery center: [facility]: [phone] --[id number] [place] [address]. Please enter through the entrance closest to [facility]. Please read below carefully for your personalized instructions. Dietary Restrictions: - No solid food after midnight. - You may have 12 ounces of clear liquids (water, clear juices such as apple juice or gatorade, carbonated beverages, clear tea, black coffee, jello) until 2 hours before scheduled arrival at facility. Medications: Unless instructed differently below, stay on all of your prescription medications until your surgery. Approved medications to take the morning of surgery with a sip of water: carvedilol, amlodipine, levothyroxine; Albuterol inhaler - No diabetic medication the morning of surgery. If you start any new medications after today's visit, please contact the surgeon's office. Blood Thinning Medications: - Stop NSAIDS (Ibuprofen, Advil, Aleve, Motrin, Celebrex, Mobic, etc.) 7 days before surgery, as directed by your surgeon. - Stop Aspirin 7 days before surgery, as directed by your surgeon. - Stop Vitamin E, ALL multi-vitamins, herbals and dietary supplements 7 days before surgery. - You may take Tylenol (Acetaminophen) or any of your pain medications that do not contain aspirin or NSAIDS as needed. Important Reminders: - If you use CPAP/BIPAP, bring the machine with you to the surgery center. - If you are prescribed inhalers for breathing, continue using them. - Candy, mints, and tobacco products are NOT permitted the morning of surgery. - Hearing aids, dentures and glasses may be worn the morning of surgery. - NO jewelry, body piercings, makeup, hairpins or contacts are to be worn the day of surgery. If you develop symptoms such as a fever, cold, or flu, or have other changes to your health within TWO DAYS of scheduled surgery or the morning of surgery, please contact the surgery center above. Personal Belongings: -Please have photo ID and insurance cards. -If you do not have a copy of advance directives on file with us, please bring a copy with you on the day of surgery. - Leave ALL valuables and money at home or with family members. For Outpatient Procedures: - YOU MUST HAVE A RESPONSIBLE EIGHT ARM OPERATOR TAKE YOU HOME. A FOREMAN/PROJECT MANAGER OR ELECTRICAL CONTINUITY INSPECTOR CANNOT BE MADE A RESPONSIBLE EIGHT ARM OPERATOR. - We recommend that a responsible person stays with you overnight to take care of you. - You cannot stay in a hotel alone after outpatient surgery. You will not be permitted to have your surgery, if you do not have someone to take care of you. Arrival Time for Surgery: - The Surgery Center or hospital where you are having surgery will call the afternoon before surgery (or Tuesday for Tuesday surgery) with a scheduled arrival time. - If you have not heard by 4 pm, please contact the surgery center above. Please be aware that emergency situations arise, which may delay or change your surgical time. If this happens, we will notify you as soon as possible and regret any inconvenience. If you already have an Advance Directive, please fax a copy to [phone] or email to for it to be added to your chart. If you do not have an Advance Directive, you can find the appropriate form and more information at [email or web address]. We recommend that you complete the Advance Directive form found on the website and bring it with you the day of your surgery. It can be witnessed and scanned into your chart that day. documented in this encounter [facility] 03-17-2022 Miscellaneous Notes Pt just called our office as well. Didn't mention anything about an antibiotic though. I have messaged our clerical pool asking them to re submit the original referral. Thanks! Miriam Nj RN Images from the original note were not included. Jacinda Lim RN You; Marce Hunter 2 minutes ago (10:23 AM) LF Patient needs a GI consult Jen. Pineda, patient scheduled incorrectly with a surgeon and needs a GI physician but wanted to advise as if needs antibiotics due to CT scan. Spoke with patient as scjeduled to see us for diverticulitis. Patient had a incidential CT scan as she has surgery upcoming for the breast. The CT scan noted: Sigmoid colon diverticulosis is again noted. There is new enhancement of a sigmoid colon diverticula (3:117) with adjacent fat stranding worrisome for diverticulitis. No evidence of abscess formation.. Patient denies any pain or issues with bowels. Has never had any past episodes of in the past. Order was placed for gastroenterology and informed patient she was not scheduled correctly however I did want her to follow up with her PCP if requires antibiotics. Patient states she prefers to stay within the clinic and stay with Dr. aDo who has been managing her care. I apologized for being scheduled incorrectly and advised I will have corporate scheduler assist with GI and send message to nurse who works with Dr. Dao and to please have her each out as well as if requires antibiotics. documented in this encounter [facility] 03-15-2022 Miscellaneous Notes Patient has been scheduled with [facility] on Sunday 03/19 in [place]. She requested to coordinate this appointment when she is traveling same day for her other appointment. Marimar Lee Clerical: Please refer pt to [facility]. Thanks! Miriam Nj RN Signed. Dipti Merritt APRN.MIGUELINA Pt calls w/ the following questions/requests: 1. Pt's CT showed possible diverticulitis. Pt denies symptoms currently but requests to be referred to [facility] for further follow up. Consult order pended. 2. Pt calls w/ questions regarding her upcoming appointments. All questions reviewed and answered. No additional questions noted. Miriam Nj RN documented in this encounter [facility] 03-11-2022 Nurse Note Base line circumferential arm measurements were taken. Dominant arm is the right side. Right Arm Measurements: Middle finger most proximal aspect 6.25 cm At the palm straight across proximal to knuckles 18.25 cm At the wrist just proximal to ulnar styloid process 15.50 cm Forearm,10 cm distal to the antecubital fossa 27 cm Antecubital fossa 28.5 cm Mid upper arm,10 cm proximal to the antecubital fossa 34.5 cm Left Arm Measurements: Middle finger most proximal aspect 5.75 cm At the palm straight across proximal to knuckles 18 cm At the wrist (just proximal to ulnar styloid process) 15.25 cm Forearm,10 cm distal to the antecubital fossa 25.5 cm Antecubital fossa 26.5 cm Mid upper arm,10 cm proximal to the antecubital fossa 35 cm documented in this encounter [facility] 03-11-2022 History of Present illness Narrative Breast Surgery Follow Up 66 yo F known to clinic with prior dx of R Stage cIIA IDC ER/HI++, HER2 neg Has been doing okay with NAC, here to discuss surgery as next step On exam looks well, NAD Sclera anicteric Resp unlabored Reg rate SC nodes neg L axilla neg R axilla with node palpable, improved Right breast with improved mass effect UO quadrant MRI reviewed FINDINGS: Bilateral background breast enhancement is mild. Right breast: There is residual enhancing mass measuring 3.7 x 2.3 x 2.8 cm at 10:00 8 cm from the nipple with associated biopsy clip artifact. This is slightly less enhancing when compared to the original MRI dated 11/10/2021. There are multiple enlarged right axillary lymph nodes, 1 of which has a biopsy clip artifact. They are slightly decreased in size since original MRI from 11/10/2021, however they are still enlarged with cortical thickening up to 7 mm. Left breast: There is no suspicious mass, abnormal enhancement pattern, distortion or other significant abnormality in the left breast. No abnormalities noted in the left axilla. Discussed surgical options for breast and axilla Lumpectomy vs mastectomy reviewed and pt opts to proceed with lumpectomy Less that desired response to axilla so will plan for axillary dissection with ARM Risks, benefits and alternatives discussed with patient, including but not limited to bleeding, infection, seroma development, need for re-excision/further procedures based on findings, lymphedema. Pt voiced understanding. Will proceed with scheduling. Shahana Mercedes MD documented in this encounter [facility] 03-09-2022 Note HNO ID: [id number] Author: RT Patrick(R) Service: ? Author Type: Technologist Type: Progress Notes Filed: 03/09/2022 12:10 PM Note Text: Radiology Service Progress Note DATE OF SERVICE: March 09, 2022 TIME: 12:09 PM PATIENT IDENTITY VERIFICATION COMPLETED USING TWO (2) STANDARD IDENTIFIERS: Name and Date of confirmed by patient verbally. FALL SCREENING: Has the patient had 2 falls in the last year or 1 fall with injury or currently using an Ambulatory Assistive Device (Walker, Cane, Wheelchair, Crutches, etc.)? No PATIENT GENDER DATA: Female. status: : No status: NO. PATIENT RELEVANT IMPLANT DATA REVIEWED: Yes ALLERGIES: Reviewed and unchanged CONTRAST ALLERGY: NO. EXAM: MRI - CONTRAST TYPE: GROUP II PERIPHERAL IV DATA: iv started by radiology nursing staff RADIOLOGY DEPARTMENT: MR; Exam(s) Completed: Chest: Breast SIGNATURE: RT Patrick(R) PATIENT NAME: Kiah Cortes DATE: March 09, 2022 TIME: 12:09 PM [facility] 03-09-2022 Note HNO ID: [id number] Author: Faith Blanc RN Service: Interventional Radiology Author Type: Registered Nurse Type: Progress Notes Filed: 03/09/2022 12:00 PM Note Text: Radiology Service Progress Note DATE OF SERVICE: March 09, 2022 TIME: 11:59 AM PATIENT WEIGHT: 219LBS PATIENT IDENTITY VERIFICATION COMPLETED USING TWO (2) STANDARD IDENTIFIERS: Name and Date of confirmed by patient verbally and Name and Date of confirmed by identification band. FALL SCREENING: Has the patient had 2 falls in the last year or 1 fall with injury or currently using an Ambulatory Assistive Device (Walker, Cane, Wheelchair, Crutches, etc.)? No PATIENT GENDER DATA: Female. status: : No status: NO. ALLERGIES: Reviewed and unchanged CONTRAST ALLERGY: No EXAM: MRI - CONTRAST TYPE: GROUP II IV SITE: Ambulatory: A peripheral IV was started in the Left forearm with a Angio cath: 22 gauge. IV SITE APPEARANCE: Clean,Dry and Intact SIGNATURE: Faith Blanc RN PATIENT NAME: Kiah Cortes DATE: March 09, 2022 TIME: 11:59 AM [facility] 03-04-2022 Miscellaneous Notes Spoke w/ pt. She denies any signs/symptoms of diverticulitis at this time. Miriam Nj RN Call placed to pt. No answer. No voicemail. Unable to leave a message. Miriam Nj RN ----- Message from Narendra Dao MD sent at 03/02/2022 12:10 PM EST ----- Can you please call and inquire regarding her findings on CT abdomen of possible diverticulitis? documented in this encounter [facility] 02-18-2022 Miscellaneous Notes MRI scheduled 03/09 Dr Mercedes 03/11 Please schedule pt to see Dr Mercedes on 03/04/22 at 130pm (surg regroup) with MRI prior to Dr Mercedes appts. Gera Phillips PA-C documented in this encounter [facility] 02-17-2022 Miscellaneous Notes Pt notified and verbalizes understanding. Miriam Nj RN Not if symptoms are improving Narendra Dao MD Pt taking Augmentin for c/o sinus congestion and yellow nasal drainage earlier this week. Notes her symptoms are improving. Pt calls today because her daughter was exposed to covid last weekend and then pt exposed to daughter. Daughter does NOT have covid currently, however, daughter suggested the pt test for Covid. Pt would like to know if you feel that this is necessary? Miriam Nj RN documented in this encounter [facility] 02-15-2022 Miscellaneous Notes Yes. [facility] confirmed receipt. Pt aware of script. Miriam Nj RN Sent Augmentin right? Pt reports nonproductive cough and sinus congestion w/ yellow drainage x 1 week. Voice is hoarse. Denies sore throat. Denies fevers or chills. No relief w/ carmelo-seltzer cold & flu. What do you advise for her symptoms? Miriam Nj RN documented in this encounter [facility] 02-12-2022 Miscellaneous Notes Please sign pending Cre order for upcoming CT with contrast on 02/26/22 as patient is on NephroToxic chemo. Her standing lab orders will not be due at this time. Thank you. Lala Cristina RN documented in this encounter [facility] 02-12-2022 Miscellaneous Notes Good Morning! Refer back to Dr. Shahana Mercedes for surgery. Can you please assist this patient in getting scheduled? Thank you! Marimar Lee documented in this encounter [facility] 02-12-2022 History of Present illness Narrative Images from the original note were not included. [id number] DATE OF SERVICE: February 12, 2022 (Norbert) Some elements in this clinic note that are critical to medical decision making have been carefully reviewed and included from a prior clinic note dated: February 05, 2022. (Dr. Dao) Referring Provider: Dr. Shaikh West Additional Clinicians involved in Kiah Cortes's care: Dr. Shahana Mercedes DIAGNOSIS: Right breast cancer ASSESSMENT: 66 year old woman with right breast lump diagnosed with Stage cIIA IDC ER/HI++, HER2(0) breast cancer cT2 cN1, cMx in need of consideration for neoadjuvant chemotherapy and resection following completion of chemotherapy. Patient started neoadjuvant Taxotere and cytoxan with GSF on 12/04/21. Tolerated well with minor side effects. After she left the office, labs indicate elevation in BUN and creatinine, likely consistent with dehydration, corrected with hydration. Pulmonary nodule--0.3cm RML nodule on CT chest, repeat imaging following treatment. Thickened L adrenal gland on CTs--consider repeat imaging following treatment. PLAN: Proceed with cycle 4 Taxotere and Cytoxan today. Final neoadjuvant treatment. Will restage with CT chest, abdomen and pelvis in 2-3 weeks. Refer back to Dr. Shahana Mercedes. We will see her back after surgery. HPI: CASE HISTORY: 12/04/2021 - Start Taxotere + Cytoxan neoadjuvant. 11/27/2021 - NM bone scan - negative 11/20/2021 - CT A/P - negative 11/10/2021 MRI Breasts: - Birads 6 - rt breast - 7cmfn @ 10:00 3.6x3.1x2.5, 3-[address], lft breast Birads2 10/30/2021 CT Chest: multiple rt axillary LN, 0.3 cm right mid-lobe nodule - non-specific. 10/02/2021 US & Diag mammography - Right breast 12 O'Clock, 7 cm from nipple - 2.9 x 2.5 cm mass - x IDC +Axillary LN. G1, ER/HI 90/80% HER2 ([facility]) = 0 09/30/2021 right breast ultrasound: 2.9 x 2.5 x 2.3 cm mass 8 cm from the nipple at the 9 and 10 o'clock position of the right breast suspicious for malignancy. Suspicious lymph nodes in the right axilla noted. 08/2021 - noted right breast mass on self exam. Updated Visit, February 12, 2022: Kiah Cortes returns for follow-up and her final treatment with Taxotere and Cytoxan. She is tolerating treatment well. She has some sinus drainage and has been coughing this morning. She denies fevers, chills, night sweats and signs/symptoms of infection. No bleeding or abnormal bruising. Her biggest side effect from treatment is fatigue. Otherwise, no significant side effects. She wishes to proceed with treatment as planned. Updated Visit, February 05, 2022: Here with [place] hands improved Port flush today made her feel dizzy She's more fatigued than expected Looks cristina BP is notably decreased Renal function has dropped acutely. Updated Visit, January 15, 2022: Kiah Cortes here for cycle 3 Taxotere and Cytoxan. Since her last visit she has noticed some peeling of both of her hands. She denies any redness or pain to her hands. She has been keeping her hands well lotion. She also had right heel pain that lasted 2 to 3 days and she described it like stepping on glass or needles. She has had some fatigue. She denies fevers, chills, night sweats and signs/symptoms of infection. No bleeding or abnormal bruising. Overall, she is doing well and wishes to proceed with treatment as planned. 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 Updated Visit, December 14, 2021: [place] Isl returns for jagdish counts and follow up after starting neoadjuvant Taxotere and cyclophosphamide with GFS on 12/04/21. She does report having a headache for 2 days following treatment that was relieved with tylenol. Did have some constipation and hard stools. Had one episode of blood in stool on 12/11/21. None since. No nausea, vomiting or diarrhea. Appetite and taste is down but she is eating. Drinking is fine, but wine and coffee tastes bad. Some dry mouth but drinking at least 80-120cc of water everyday. No fevers, chills, cough, or shortness of breath. Updated Visit, December 04, 2021: [place] [facility]l returns with [place] her daughter. Reviewed CT Abdomen / Pelvis. Bone scan was negative. Will proceed with treatment. Chaperoned exam notable for 3-4 cm right upper outer quadrant breast mass easily palpable. No palpable axillary LN's. Updated Visit, November 18 2021: [place] [facility]l returns with her daughter [place] and has seen Dr. Mercedes and completed her MRI as well as CT Chest. Given the number of LN's involved, additional staging studies have been ordered to be completed including NM Bone scan and CT abdomen / Pelvis. Once these are completed and negative, we can proceed with planned neoadjuvant chemotherapy with up to 6 cycles of TC. Aside from being anxious, she is doing well. Initial Visit, October 21, 2021: Kiah Cortes presents today Hematology and Oncology evaluation. She is a 66 year old female who noted a mass on self breast exam in the right breast. 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 She's here with her daughter [place]. She was referred for medical oncology opinion regarding breast cancer. Will need to complete staging and anticipate lisa-adjuvant chemotherapy give peterson disease. FHX cancer: Daughter [place] - had cervical not ovarian Mother had lung cancer Another Daughter had lymphoma REVIEW OF SYSTEMS Per HPI and otherwise negative by full review of organ systems. ECOG PERFORMANCE STATUS: 0 PHYSICAL EXAMINATION: Vitals: BP 123/59 Pulse 76 Temp (Src) 98 (Temporal) Resp 16 Ht 5' 2.205 (1.58m) Wt 219 lb 3.2 oz (99.4kg) SpO2 95% BMI 39.83 kg/(m^2). Body surface area is 2.09 meters squared. Exam limited to gross visualization where appropriate due to COVID-19. Gen.: This is an age-appropriate patient in no acute distress. Head: Appears atraumatic with no visible lesions. Eyes: Pupils equally round and reactive to light, extraocular muscles are intact. Neck: Supple. Mouth: Masked. Respiratory: Appears to be respiring comfortably. Neurologic: Nonfocal to gross visualization. Alert and oriented 3. Psychiatric: No evidence of inappropriate anxiety or depression. Skin: Visible areas of skin without rash, lesions, wounds or petechiae. ALLERGIES: ALLERGIES Allergen Reactions Lisinopril Unknown Seasonal Allergies Itching, Other: See Comments MEDICATIONS: albuterol HFA (PROVENTIL HFA, VENTOLIN HFA) 90 mcg/actuation inhaler^INHALE 2 PUFFS 4 TIMES PER DAY NEEDED FOR SHORTNESS OF BREATH OR WHEEZING^Disp: ^Rfl: losartan-hydroCHLOROthiazide (HYZAAR) 100-25 mg per tablet^Take 1 tablet by mouth once daily.^Disp: ^Rfl: multivitamin/folic acid/biotin ([id number], [id number], ORAL)^Take 3 tablets by mouth once daily.^Disp: ^Rfl: ondansetron (ZOFRAN) 8 mg tablet^Take 1 tablet by mouth every 8 hours as needed for nausea/vomiting.^Disp: 90 tablet^Rfl: 1 prochlorperazine (COMPAZINE) 10 mg tablet^Take 1 tablet by mouth every 6 hours as needed.^Disp: 100 tablet^Rfl: 1 atorvastatin (LIPITOR) 40 mg tablet^Take 40 mg by mouth once daily.^Disp: ^Rfl: loratadine (CLARITIN) 10 mg tablet^Take 10 mg by mouth once daily.^Disp: ^Rfl: metFORMIN (GLUCOPHAGE) 1,000 mg tablet^Metformin Active 1000 MG PO Every morning May 04, 2021 3:24pm^Disp: ^Rfl: carvedilol (COREG) 25 mg tablet^Take 25 mg by mouth twice daily.^Disp: ^Rfl: acetaminophen (TYLENOL) 325 mg tablet^Take 650 mg by mouth every 6 hours as needed.^Disp: ^Rfl: amLODIPine (NORVASC) 10 mg tablet^Take 10 mg by mouth once daily.^Disp: ^Rfl: levothyroxine sodium (LEVOTHYROXINE ORAL)^Take 50 mcg by mouth once daily.^Disp: ^Rfl: losartan (COZAAR) 100 mg tablet^Take 100 mg by mouth once daily.^Disp: ^Rfl: rOPINIRole (REQUIP) 0.25 mg tablet^Take 0.25 mg by mouth three times daily.^Disp: ^Rfl: semaglutide (OZEMPIC) 0.25 mg or 0.5 mg(2 mg/1.5 mL) pen injector^Inject 0.25 mg subcutaneously one time a week.^Disp: ^Rfl: LABORATORY VALUES: Hemoglobin (g/dL) Date Value 02/12/2022 10.4 Hematocrit (%) Date Value 02/12/2022 32.5 WBC (k/uL) Date Value 02/12/2022 6.71 Platelet Count (k/uL) Date Value 02/12/2022 236 DIAGNOSIS: (C50.411, Z17.0) Malignant neoplasm of upper-outer quadrant of right breast in female, estrogen receptor positive (HCC) (primary encounter diagnosis) PATH: reviewed today on 12/14/21 Breast, right, at 12:00, 7 cm from the nipple, ultrasound-guided core biopsy ([id number], part A; 10/02/2021): ---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 ---Please see comment. Lymph node, right axillary tail, ultrasound-guided core biopsy ([id number], part B; 10/02/2021): ---Metastatic mammary carcinoma with signet ring features, measuring at least 13 mm in greatest dimension, likely representing a lymph node completely replaced by carcinoma. ---Please see comment. Right breast invasive carcinoma: ER: POSITIVE (100%, strong) HI: POSITIVE (100%, strong) HER2 IHC: NEGATIVE (0) Controls react as expected Right axillary tail metastasis: ER: POSITIVE (100%, strong) HI: POSITIVE (100%, strong) HER2 IHC: NEGATIVE (0) Controls react as expected IMAGING: Bone scan 11/27/21 No suspicious foci of activity. No scintigraphic evidence of osseous metastases. Likely degenerative/arthritic changes as described. CT abdomen and pelvis 11/20/21 . Nonspecific nodular thickening of the left adrenal gland. Consider interval follow-up. 2. Otherwise no evidence of intra-abdominal/intrapelvic metastases. 3. Subcentimeter left hepatic cyst. 4. Sigmoid colon diverticulosis without evidence of diverticulitis. 5. Nonspecific haziness of the mesenteric fat may represent edema or infectious/inflammatory etiologies. CT chest 10/30/21 1. Multiple enlarged right axillary lymph nodes, highly suspicious for neoplastic involvement. 2. A 0.3 cm right middle lobe pulmonary nodule is nonspecific. Continued attention on subsequent studies is suggested. PAST MEDICAL HISTORY Diagnosis Date Asthma Breast cancer (HCC) right breast Fibromyalgia HTN (hypertension) Migraine Obesity PAST SURGICAL HISTORY Procedure Laterality Date APPENDECTOMY BX OF BREAST; INCISIONAL Right PAST SURGICAL HISTORY OF Rt Shoulder PAST SURGICAL HISTORY OF Rt knee tendons PAST SURGICAL HISTORY OF Right shoulder tendons Social History Tobacco Use Smoking status: Never Passive exposure: Past Smokeless tobacco: Never Vaping Use Vaping Use: Never used Substance Use Topics Alcohol use: Yes Drug use: Not Currently No family history on file. Dipti Merritt APRN.SECRETARIAL TEACHER Hematology and Oncology Services Provided at: [place], [place] CC: Dr. Shaikh West [address] [place] [address] Dr. Shahana Mercedes documented in this encounter [facility] 02-08-2022 Miscellaneous Notes Images from the original note were not included. Narendra Dao MD You; Dipti Merritt APRN.SECRETARIAL TEACHER 21 minutes ago (1:21 PM) Very good thank you. Spoke w/ pt today. She reports that she feels fine . Denies dizziness. Her fatigue has improved. States that she completed her PFTs earlier today @ [place]. Denies needs a present time. Will be in as scheduled on Tuesday. Miriam Nj RN Blood and urine cultures cancelled per Dr Dao. would still like the CC to call pt for f/u on Tuesday. Miriam Sessler, RN Dr Mary Peña would like you to follow up with Mansoor Sebastian on her blood and urine culture from Tuesday02-05-22. documented in this encounter [facility] 02-05-2022 History of Present illness Narrative [facility] K [facility], pt to receive KCL 20meq IV x 1. Pharmacy to enter. Lab out of supplies to draw BC, [facility] notified and ok to hold off on cultures for now. Port has blood return after activase. Lucía Sen RN documented in this encounter [facility] 02-05-2022 Instructions Narendra Dao MD - 02/05/2022 10:12 AM EST Hold treatment today Hydration 1 liter Hold Hyzaar - Losartan / HCTZ Blood and urine culture today Mariana - please follow up RTC next week for resumption of treatment documented in this encounter [facility] 02-05-2022 History of Present illness Narrative Images from the original note were not included. NAME: Kiah Cortes CLINIC NO.: [id number] DATE OF SERVICE: February 05, 2022 (Maddy) Some elements in this clinic note that are critical to medical decision making have been carefully reviewed and included from a prior clinic note dated: January 15, 2022 (Norbert) Referring Provider: Dr. Shaikh West Additional Clinicians involved in Kiah Cortes's care: Dr. Shahana Mercedes DIAGNOSIS: Right breast cancer ASSESSMENT: 66 year old woman with right breast lump diagnosed with Stage cIIA IDC ER/HI++, HER2(0) breast cancer cT2 cN1, cMx in need of consideration for neoadjuvant chemotherapy and resection following completion of chemotherapy. Patient started neoadjuvant Taxotere and cytoxan with GSF on 12/04/21. Tolerated well with minor side effects. After she left the office, labs indicate elevation in BUN and creatinine, likely consistent with dehydration, corrected with hydration Pulmonary nodule--0.3cm RML nodule on CT chest, repeat imaging following treatment Thickened L adrenal gland on CTs--consider repeat imaging following treatment PLAN: Hold treatment today Hydration 1 liter Hold Hyzaar - Losartan / HCTZ Blood and urine culture today Mariana - please follow up RTC next week for resumption of treatment HPI: CASE HISTORY: 12/04/2021 - Start Taxotere + Cytoxan neoadjuvant. 11/27/2021 - NM bone scan - negative 11/20/2021 - CT A/P - negative 11/10/2021 MRI Breasts: - Birads 6 - rt breast - 7cmfn @ 10:00 3.6x3.1x2.5, 3-[address], lft breast Birads2 10/30/2021 CT Chest: multiple rt axillary LN, 0.3 cm right mid-lobe nodule - non-specific. 10/02/2021 US & Diag mammography - Right breast 12 O'Clock, 7 cm from nipple - 2.9 x 2.5 cm mass - x IDC +Axillary LN. G1, ER/HI 90/80% HER2 (IHC) = 0 09/30/2021 right breast ultrasound: 2.9 x 2.5 x 2.3 cm mass 8 cm from the nipple at the 9 and 10 o'clock position of the right breast suspicious for malignancy. Suspicious lymph nodes in the right axilla noted. 08/2021 - noted right breast mass on self exam. Updated Visit, February 05, 2022: Here with [place] hands improved Port flush today made her feel dizzy She's more fatigued than expected Looks cristina BP is notably decreased Renal function has dropped acutely. Will consider blood and urine cultures if she has more problems while in chemotherapy and consider evaluating her port for signs of infection. - She has alteplae instillation currently to open her port for blood draws again. Updated Visit, January 15, 2022: Kiah Cortes here for cycle 3 Taxotere and Cytoxan. Since her last visit she has noticed some peeling of both of her hands. She denies any redness or pain to her hands. She has been keeping her hands well lotion. She also had right heel pain that lasted 2 to 3 days and she described it like stepping on glass or needles. She has had some fatigue. She denies fevers, chills, night sweats and signs/symptoms of infection. No bleeding or abnormal bruising. Overall, she is doing well and wishes to proceed with treatment as planned. 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 Updated Visit, December 14, 2021: [place]l returns for jagdish counts and follow up after starting neoadjuvant Taxotere and cyclophosphamide with GFS on 12/04/21. She does report having a headache for 2 days following treatment that was relieved with tylenol. Did have some constipation and hard stools. Had one episode of blood in stool on 12/11/21. None since. No nausea, vomiting or diarrhea. Appetite and taste is down but she is eating. Drinking is fine, but wine and coffee tastes bad. Some dry mouth but drinking at least 80-120cc of water everyday. No fevers, chills, cough, or shortness of breath. Updated Visit, December 04, 2021: [place]l returns with [place] her daughter. Reviewed CT Abdomen / Pelvis. Bone scan was negative. Will proceed with treatment. Chaperoned exam notable for 3-4 cm right upper outer quadrant breast mass easily palpable. No palpable axillary LN's. Updated Visit, November 18 2021: [place] [facility]l returns with her daughter [place] and has seen Dr. Mercedes and completed her MRI as well as CT Chest. Given the number of LN's involved, additional staging studies have been ordered to be completed including NM Bone scan and CT abdomen / Pelvis. Once these are completed and negative, we can proceed with planned neoadjuvant chemotherapy with up to 6 cycles of TC. Aside from being anxious, she is doing well. Initial Visit, October 21, 2021: Kiah Cortes presents today Hematology and Oncology evaluation. She is a 66 year old female who noted a mass on self breast exam in the right breast. 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 She's here with her daughter [place]. She was referred for medical oncology opinion regarding breast cancer. Will need to complete staging and anticipate lisa-adjuvant chemotherapy give peterson disease. FHX cancer: Daughter [place] - had cervical not ovarian Mother had lung cancer Another Daughter had lymphoma REVIEW OF SYSTEMS Per HPI and otherwise negative by full review of organ systems. ECOG PERFORMANCE STATUS: 0 PHYSICAL EXAMINATION: Vitals: BP 100/60 Pulse 50 Temp (Src) 97.8 (Temporal) Resp 16 Ht 5' 2.205 (1.58m) Wt 220 lb 6.4 oz (100.0kg) SpO2 94% BMI 40.05 kg/(m^2). Body surface area is 2.09 meters squared. General: Alert and oriented, as noted in HPI Heart: Regular, normal S1 and S2, no murmurs, rubs, or gallops ALLERGIES: ALLERGIES Allergen Reactions Lisinopril Unknown Seasonal Allergies Itching, Other: See Comments MEDICATIONS: losartan-hydroCHLOROthiazide (HYZAAR) 100-25 mg per tablet^Take 1 tablet by mouth once daily.^Disp: ^Rfl: multivitamin/folic acid/biotin ([id number], [id number], ORAL)^Take 3 tablets by mouth once daily.^Disp: ^Rfl: ondansetron (ZOFRAN) 8 mg tablet^Take 1 tablet by mouth every 8 hours as needed for nausea/vomiting.^Disp: 90 tablet^Rfl: 1 prochlorperazine (COMPAZINE) 10 mg tablet^Take 1 tablet by mouth every 6 hours as needed.^Disp: 100 tablet^Rfl: 1 atorvastatin (LIPITOR) 40 mg tablet^Take 40 mg by mouth once daily.^Disp: ^Rfl: loratadine (CLARITIN) 10 mg tablet^Take 10 mg by mouth once daily.^Disp: ^Rfl: metFORMIN (GLUCOPHAGE) 1,000 mg tablet^Metformin Active 1000 MG PO Every morning May 04, 2021 3:24pm^Disp: ^Rfl: carvedilol (COREG) 25 mg tablet^Take 25 mg by mouth twice daily.^Disp: ^Rfl: acetaminophen (TYLENOL) 325 mg tablet^Take 650 mg by mouth every 6 hours as needed.^Disp: ^Rfl: amLODIPine (NORVASC) 10 mg tablet^Take 10 mg by mouth once daily.^Disp: ^Rfl: levothyroxine sodium (LEVOTHYROXINE ORAL)^Take 50 mcg by mouth once daily.^Disp: ^Rfl: rOPINIRole (REQUIP) 0.25 mg tablet^Take 0.25 mg by mouth three times daily.^Disp: ^Rfl: semaglutide (OZEMPIC) 0.25 mg or 0.5 mg(2 mg/1.5 mL) pen injector^Inject 0.25 mg subcutaneously one time a week.^Disp: ^Rfl: albuterol HFA (PROVENTIL HFA, VENTOLIN HFA) 90 mcg/actuation inhaler^INHALE 2 PUFFS 4 TIMES PER DAY NEEDED FOR SHORTNESS OF BREATH OR WHEEZING^Disp: ^Rfl: losartan (COZAAR) 100 mg tablet^Take 100 mg by mouth once daily.^Disp: ^Rfl: LABORATORY VALUES: WBC (k/uL) Date Value 02/05/2022 5.93 RBC (m/uL) Date Value 02/05/2022 3.14 (L) Hemoglobin (g/dL) Date Value 02/05/2022 9.9 (L) Hematocrit (%) Date Value 02/05/2022 30.8 (L) MCV (fL) Date Value 02/05/2022 98.1 MCH (pg) Date Value 02/05/2022 31.5 MCHC (g/dL) Date Value 02/05/2022 32.1 RDW-CV (%) Date Value 02/05/2022 17.1 (H) Platelet Count (k/uL) Date Value 02/05/2022 267 MPV (fL) Date Value 02/05/2022 10.1 Glucose (mg/dL) Date Value 02/05/2022 255 (H) BUN (mg/dL) Date Value 02/05/2022 30 (H) Creatinine (mg/dL) Date Value 02/05/2022 1.20 (H) Sodium (mmol/L) Date Value 02/05/2022 138 Potassium (mmol/L) Date Value 02/05/2022 3.4 (L) Chloride (mmol/L) Date Value 02/05/2022 103 CO2 (mmol/L) Date Value 02/05/2022 23 Protein, Total (g/dL) Date Value 02/05/2022 6.4 Albumin (g/dL) Date Value 02/05/2022 3.7 (L) Calcium, Total (mg/dL) Date Value 02/05/2022 9.6 Alkaline Phosphatase (U/L) Date Value 02/05/2022 94 Bilirubin, Total (mg/dL) Date Value 02/05/2022 0.3 AST (U/L) Date Value 02/05/2022 16 ALT (U/L) Date Value 02/05/2022 11 DIAGNOSIS: (C50.411, Z17.0) Malignant neoplasm of upper-outer quadrant of right breast in female, estrogen receptor positive (HCC) (primary encounter diagnosis) Plan: DISCONTINUED: NaCl 0.9% 1,000 mL, DISCONTINUED: heparin 100 unit/mL 500 Units injection, DISCONTINUED: sodium chloride 0.9 % (flush) 10-20 mL (BD POSIFLUSH) PATH: reviewed today on 12/14/21 Breast, right, at 12:00, 7 cm from the nipple, ultrasound-guided core biopsy ([id number], part A; 10/02/2021): ---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 ---Please see comment. Lymph node, right axillary tail, ultrasound-guided core biopsy ([id number], part B; 10/02/2021): ---Metastatic mammary carcinoma with signet ring features, measuring at least 13 mm in greatest dimension, likely representing a lymph node completely replaced by carcinoma. ---Please see comment. Right breast invasive carcinoma: ER: POSITIVE (100%, strong) HI: POSITIVE (100%, strong) HER2 IHC: NEGATIVE (0) Controls react as expected Right axillary tail metastasis: ER: POSITIVE (100%, strong) HI: POSITIVE (100%, strong) HER2 IHC: NEGATIVE (0) Controls react as expected IMAGING: Bone scan 11/27/21 No suspicious foci of activity. No scintigraphic evidence of osseous metastases. Likely degenerative/arthritic changes as described. CT abdomen and pelvis 11/20/21 . Nonspecific nodular thickening of the left adrenal gland. Consider interval follow-up. 2. Otherwise no evidence of intra-abdominal/intrapelvic metastases. 3. Subcentimeter left hepatic cyst. 4. Sigmoid colon diverticulosis without evidence of diverticulitis. 5. Nonspecific haziness of the mesenteric fat may represent edema or infectious/inflammatory etiologies. CT chest 10/30/21 1. Multiple enlarged right axillary lymph nodes, highly suspicious for neoplastic involvement. 2. A 0.3 cm right middle lobe pulmonary nodule is nonspecific. Continued attention on subsequent studies is suggested. PAST MEDICAL HISTORY Diagnosis Date Asthma Breast cancer (HCC) right breast Fibromyalgia HTN (hypertension) Migraine Obesity PAST SURGICAL HISTORY Procedure Laterality Date APPENDECTOMY BX OF BREAST; INCISIONAL Right PAST SURGICAL HISTORY OF Rt Shoulder PAST SURGICAL HISTORY OF Rt knee tendons PAST SURGICAL HISTORY OF Right shoulder tendons Social History Tobacco Use Smoking status: Never Passive exposure: Past Smokeless tobacco: Never Vaping Use Vaping Use: Never used Substance Use Topics Alcohol use: Yes Drug use: Not Currently History reviewed. No pertinent family history. I spent a total of 40 minutes on the date of the service which included preparing to see the patient, [id number] patient care, completing clinical documentation, obtaining and/or reviewing separately obtained history, performing a medically appropriate examination, counseling and educating the patient/family/caregiver, ordering medications, tests, or procedures, communicating with other HCPs (not separately reported), and independently interpreting results (not separately reported). Narendra Dao MD, CPE Hematology and Oncology Services Provided at: [place], [place] CC: Dr. Shaikh West [address] [facility] [place] [address] Dr. Shahana Mercedes documented in this encounter [facility] 01-15-2022 History of Present illness Narrative Images from the original note were not included. NAME: Kiah Cortes NO.: [id number] DATE OF SERVICE: January 15, 2022 (Norbert) Some elements in this clinic note that are critical to medical decision making have been carefully reviewed and included from a prior clinic note dated: December 25, 2021. (Dr. Dao) Referring Provider: Dr. Shaikh West Additional Clinicians involved in Kiah Cortes's care: Dr. Shahana Mercedes DIAGNOSIS: Right breast cancer ASSESSMENT: 66 year old woman with right breast lump diagnosed with Stage cIIA IDC ER/HI++, HER2(0) breast cancer cT2 cN1, cMx in need of consideration for neoadjuvant chemotherapy and resection following completion of chemotherapy. Patient started neoadjuvant Taxotere and cytoxan with GSF on 12/04/21. Tolerated well with minor side effects. After she left the office, labs indicate elevation in BUN and creatinine, likely consistent with dehydration, corrected with hydration Pulmonary nodule--0.3cm RML nodule on CT chest, repeat imaging following treatment Thickened L adrenal gland on CTs--consider repeat imaging following treatment PLAN: Continue [id number] Cytoxan today. Plan 4-6 cycles in neoadjuvant setting. Onpro today following treatment. Follow up in 3 weeks prior to C4. Labs prior to chemo. Monitor closely for neuropathy. HPI: CASE HISTORY: 12/04/2021 - Start Taxotere + Cytoxan neoadjuvant. 11/27/2021 - NM bone scan - negative 11/20/2021 - CT A/P - negative 11/10/2021 MRI Breasts: - Birads 6 - rt breast - 7cmfn @ 10:00 3.6x3.1x2.5, 3-[address], lft breast Birads2 10/30/2021 CT Chest: multiple rt axillary LN, 0.3 cm right mid-lobe nodule - non-specific. 10/02/2021 US & Diag mammography - Right breast 12 O'Clock, 7 cm from nipple - 2.9 x 2.5 cm mass - x IDC +Axillary LN. G1, ER/HI 90/80% HER2 (I[facility]) = 0 09/30/2021 right breast ultrasound: 2.9 x 2.5 x 2.3 cm mass 8 cm from the nipple at the 9 and 10 o'clock position of the right breast suspicious for malignancy. Suspicious lymph nodes in the right axilla noted. 08/2021 - noted right breast mass on self exam. Updated Visit, January 15, 2022: Kiah Cortes here for cycle 3 Taxotere and Cytoxan. Since her last visit she has noticed some peeling of both of her hands. She denies any redness or pain to her hands. She has been keeping her hands well lotion. She also had right heel pain that lasted 2 to 3 days and she described it like stepping on glass or needles. She has had some fatigue. She denies fevers, chills, night sweats and signs/symptoms of infection. No bleeding or abnormal bruising. Overall, she is doing well and wishes to proceed with treatment as planned. 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 Updated Visit, December 14, 2021: [place] Isl returns for jagdish counts and follow up after starting neoadjuvant Taxotere and cyclophosphamide with GFS on 12/04/21. She does report having a headache for 2 days following treatment that was relieved with tylenol. Did have some constipation and hard stools. Had one episode of blood in stool on 12/11/21. None since. No nausea, vomiting or diarrhea. Appetite and taste is down but she is eating. Drinking is fine, but wine and coffee tastes bad. Some dry mouth but drinking at least 80-120cc of water everyday. No fevers, chills, cough, or shortness of breath. Updated Visit, December 04, 2021: [place] returns with [place] her daughter. Reviewed CT Abdomen / Pelvis. Bone scan was negative. Will proceed with treatment. Chaperoned exam notable for 3-4 cm right upper outer quadrant breast mass easily palpable. No palpable axillary LN's. Updated Visit, November 18 2021: [place] [facility] returns with her daughter [place] and has seen Dr. Mercedes and completed her MRI as well as CT Chest. Given the number of LN's involved, additional staging studies have been ordered to be completed including NM Bone scan and CT abdomen / Pelvis. Once these are completed and negative, we can proceed with planned neoadjuvant chemotherapy with up to 6 cycles of TC. Aside from being anxious, she is doing well. Initial Visit, October 21, 2021: Kiah Cortes presents today Hematology and Oncology evaluation. She is a 66 year old female who noted a mass on self breast exam in the right breast. 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 She's here with her daughter [place]. She was referred for medical oncology opinion regarding breast cancer. Will need to complete staging and anticipate lisa-adjuvant chemotherapy give peterson disease. FHX cancer: Daughter [place] - had cervical not ovarian Mother had lung cancer Another Daughter had lymphoma REVIEW OF SYSTEMS Per HPI and otherwise negative by full review of organ systems. ECOG PERFORMANCE STATUS: 0 PHYSICAL EXAMINATION: Vitals: BP 125/96 Pulse 85 Temp (Src) 97.5 (Temporal) Resp 16 Ht 5' 2.205 (1.58m) Wt 224 lb 6.4 oz (101.8kg) SpO2 95% BMI 40.77 kg/(m^2). Body surface area is 2.11 meters squared. General: Alert and oriented, no distress, pleasant and cooperative. Heart: Regular, normal S1 and S2, no murmurs, rubs, or gallops Lungs: Clear to auscultation bilaterally Abdomen: Benign Extremities: Feet/ankles without edema, posterior tibial pulses full and symmetrical Chaperoned Breast exam shows smaller more difficult to palpate Right breast Upper Outer Quadrant mass, left breast normal. No palpable LN's ALLERGIES: ALLERGIES Allergen Reactions Lisinopril Unknown Seasonal Allergies Itching, Other: See Comments MEDICATIONS: multivitamin/folic acid/biotin ([id number], KJ-VP-AIXNOW, ORAL)^Take 3 tablets by mouth once daily.^Disp: ^Rfl: ondansetron (ZOFRAN) 8 mg tablet^Take 1 tablet by mouth every 8 hours as needed for nausea/vomiting.^Disp: 90 tablet^Rfl: 1 prochlorperazine (COMPAZINE) 10 mg tablet^Take 1 tablet by mouth every 6 hours as needed.^Disp: 100 tablet^Rfl: 1 iv contrast (will be provided with radiology test)^CT ABD/PEL -Inject, intravenously, once for 1 dose.No IV access, insert saline lock prior to the beginning of sedation, infusion, injection of imaging exam. Discontinue saline lock post exam. If Pt. has a central line or IVAD, may access for administration according to line specific nursing protocol. Once exam is complete flush line and de-access according to line specific nursing protocol in the CT contrast administration guidelines link.^Disp: 1 Each^Rfl: 0 enteric contrast (will be provided with radiology test)^For CT ABD/PEL W IVCON Routine order Administer, As Directed One Time Only, via Oral, Rectal, both Oral and Rectal, Enteric Tube, Stoma or Indwelling Catheter, Enteric Contrast as designated per enteric contrast guidelines^Disp: 1 Each^Rfl: 0 (Patient taking differently: For CT ABD/PEL W IVCON Routine order Administer, As Directed One Time Only, via Oral, Rectal, both Oral and Rectal, Enteric Tube, Stoma or Indwelling Catheter, Enteric Contrast as designated per enteric contrast guidelines) atorvastatin (LIPITOR) 40 mg tablet^Take 40 mg by mouth once daily.^Disp: ^Rfl: loratadine (CLARITIN) 10 mg tablet^Take 10 mg by mouth once daily.^Disp: ^Rfl: metFORMIN (GLUCOPHAGE) 1,000 mg tablet^Metformin Active 1000 MG PO Every morning May 04, 2021 3:24pm^Disp: ^Rfl: carvedilol (COREG) 25 mg tablet^Take 25 mg by mouth twice daily.^Disp: ^Rfl: acetaminophen (TYLENOL) 325 mg tablet^Take 650 mg by mouth every 6 hours as needed.^Disp: ^Rfl: amLODIPine (NORVASC) 10 mg tablet^Take 10 mg by mouth once daily.^Disp: ^Rfl: levothyroxine sodium (LEVOTHYROXINE ORAL)^Take 50 mcg by mouth once daily.^Disp: ^Rfl: losartan (COZAAR) 100 mg tablet^Take 100 mg by mouth once daily.^Disp: ^Rfl: rOPINIRole (REQUIP) 0.25 mg tablet^Take 0.25 mg by mouth three times daily.^Disp: ^Rfl: semaglutide (OZEMPIC) 0.25 mg or 0.5 mg(2 mg/1.5 mL) pen injector^Inject 0.25 mg subcutaneously one time a week.^Disp: ^Rfl: LABORATORY VALUES: Hemoglobin (g/dL) Date Value 01/15/2022 11.3 Hematocrit (%) Date Value 01/15/2022 34.1 WBC (k/uL) Date Value 01/15/2022 7.18 Platelet Count (k/uL) Date Value 01/15/2022 246 DIAGNOSIS: (C50.411, Z17.0) Malignant neoplasm of upper-outer quadrant of right breast in female, estrogen receptor positive (HCC) (primary encounter diagnosis) PATH: reviewed today on 12/14/21 Breast, right, at 12:00, 7 cm from the nipple, ultrasound-guided core biopsy ([id number], part A; 10/02/2021): ---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 ---Please see comment. Lymph node, right axillary tail, ultrasound-guided core biopsy ([id number], part B; 10/02/2021): ---Metastatic mammary carcinoma with signet ring features, measuring at least 13 mm in greatest dimension, likely representing a lymph node completely replaced by carcinoma. ---Please see comment. Right breast invasive carcinoma: ER: POSITIVE (100%, strong) HI: POSITIVE (100%, strong) HER2 IHC: NEGATIVE (0) Controls react as expected Right axillary tail metastasis: ER: POSITIVE (100%, strong) HI: POSITIVE (100%, strong) HER2 IHC: NEGATIVE (0) Controls react as expected IMAGING: Bone scan 11/27/21 No suspicious foci of activity. No scintigraphic evidence of osseous metastases. Likely degenerative/arthritic changes as described. CT abdomen and pelvis 11/20/21 . Nonspecific nodular thickening of the left adrenal gland. Consider interval follow-up. 2. Otherwise no evidence of intra-abdominal/intrapelvic metastases. 3. Subcentimeter left hepatic cyst. 4. Sigmoid colon diverticulosis without evidence of diverticulitis. 5. Nonspecific haziness of the mesenteric fat may represent edema or infectious/inflammatory etiologies. CT chest 10/30/21 1. Multiple enlarged right axillary lymph nodes, highly suspicious for neoplastic involvement. 2. A 0.3 cm right middle lobe pulmonary nodule is nonspecific. Continued attention on subsequent studies is suggested. PAST MEDICAL HISTORY Diagnosis Date Asthma Breast cancer (HCC) right breast Fibromyalgia HTN (hypertension) Migraine Obesity PAST SURGICAL HISTORY Procedure Laterality Date APPENDECTOMY BX OF BREAST; INCISIONAL Right PAST SURGICAL HISTORY OF Rt Shoulder PAST SURGICAL HISTORY OF Rt knee tendons PAST SURGICAL HISTORY OF Right shoulder tendons Social History Tobacco Use Smoking status: Never Passive exposure: Past Smokeless tobacco: Never Vaping Use Vaping Use: Never used Substance Use Topics Alcohol use: Yes Drug use: Not Currently No family history on file. Dipti Merritt APRN.CNP Hematology and Oncology Services Provided at: [place], [place] CC: Dr. Shaikh West [address] [facility] [address] [address]. Shahana Mercedes documented in this encounter [facility] 01-15-2022 Nurse Note Pt states that she has been very fatigued and has no energy. Kristal Hester documented in this encounter [facility] 01-05-2022 Miscellaneous Notes Pt notified. States she is drinking plenty of fluids at home. Denies concerns of dehydration. Informed pt that she can apply ice pack to bottom of her feet to help w/ the discomfort. Recommended tylenol or ibuprofen for pain as well. Pt verbalizes understanding. Will call our office w/ any persistent or worsening symptoms. Miriam Nj RN Sounds bad - sorry she's experiencing that. Keep on moisturizing Does she have problems keeping up with PO fluid - she could get some hydration. Will re-assess her and may need to switch out the taxotere after delaying her next dose of chemo. S/p cycle 2 TC. C/o pain to the bottoms of her feet/heels. Describes as feeling like she is walking on glass. Also reports the skin on her finger tips and thumbs is beginning to peel. Pt has been applying gold carver lotion regularly. Due for cycle 3 TC next week. What do you advise? Miriam Nj RN documented in this encounter [facility] 12-25-2021 History of Present illness Narrative Oncology Nutrition Therapy Reassessment RECOMMENDED MALNUTRITION DIAGNOSIS: NO MALNUTRITION IDENTIFIED Some elements copied from my note on 11/18/2021, have been updated and all reflect current decision making from today, 12/25/2021 Nutrition Diagnosis: Food and Nutrition related knowledge deficit related to lack of prior nutrition-related education as evidenced by verbalizes inaccurate or incomplete information OR no prior knowledge of need for [id number] related recommendations. Nutrition Intervention: -continue current meal pattern of 3 meals/day and snack(s) as needed -continue reducing consumption of processed meats -encouraged adequate hydration Nutrition Monitoring & Evaluation: -PO Intake -Wt status -Biochemical Markers -Plan of care Date of last encounter: November 18, 2021 Patient met goal(s): Yes Patient's symptoms are: None Pt presents for nutrition counseling for breast cancer. Pt is currently being treated with taxotere and cytoxan. Pt denies any chewing/swallowing issues, denies current N/V/D/C. Pt denies food allergies/intolerances. Appetite appears to be good, Intakes are good. Pt reports she continues to consume a variety of foods and selecting healthier options. She is still making efforts to reduce consumption of processed meats and eat more fruits and vegetables. At present, pt denies any nutrition questions or concerns. Thank you for allowing me to participate in the care of this pt. Readiness to Learn: Cognitive ability: Alert and oriented Motivation to learn: Interested Family support: High - Very involved in pt care Instruction provided to: Patient Patient learns best by: Multiple Methods Factors affecting learning: None Physical limitations affecting learning: None Educational materials provided: none this visit Anthropometrics: Height: Last 1 Encounter Ht Readings: Date: Ht: 12/25/2021 158 cm (5' 2.21 ) Current weight: Last 1 Encounter Wt Readings: Date: Wt: 12/25/2021 99.9 kg (220 lb 3.2 oz) Estimated body mass index is 40.01 kg/m as calculated from the following: Height as of an earlier encounter on 12/25/21: 158 cm (5' 2.21 ). Weight as of an earlier encounter on 12/25/21: 99.9 kg (220 lb 3.2 oz). Resting Metabolic Rate: 1489 Weight Change: n/a Luke Body Weight: 50.1kg Estimated kilocalorie needs: 1503 kilocalories determined by 30 kcal/kg Estimated protein needs: 50-65 grams determined by 1.0-1.3 g/kg Luke weight Estimated fluid needs: ~1500 milliliters based on 1 mL per kcal (unless otherwise noted) Nutrition Focused Physical Exam: Unable to perform exam due to potential for patient discomfort (physical/emotional), will re-attempt during reassessment. Potential Signs of Inflammation: chronic condition Allergies: Lisinopril and Seasonal Allergies Medications: Current Outpatient Medications Medication Sig Dispense Refill multivitamin/folic acid/biotin ([id number], [id number], ORAL) Take 3 tablets by mouth once daily. ondansetron (ZOFRAN) 8 mg tablet Take 1 tablet by mouth every 8 hours as needed for nausea/vomiting. 90 tablet 1 prochlorperazine (COMPAZINE) 10 mg tablet Take 1 tablet by mouth every 6 hours as needed. 100 tablet 1 iv contrast (will be provided with radiology test) CT ABD/PEL -Inject, intravenously, once for 1 dose.No IV access, insert saline lock prior to the beginning of sedation, infusion, injection of imaging exam. Discontinue saline lock post exam. If Pt. has a central line or IVAD, may access for administration according to line specific nursing protocol. Once exam is complete flush line and de-access according to line specific nursing protocol in the CT contrast administration guidelines link. 1 Each 0 enteric contrast (will be provided with radiology test) For CT ABD/PEL W IVCON Routine order Administer, As Directed One Time Only, via Oral, Rectal, both Oral and Rectal, Enteric Tube, Stoma or Indwelling Catheter, Enteric Contrast as designated per enteric contrast guidelines (Patient taking differently: For CT ABD/PEL W IVCON Routine order Administer, As Directed One Time Only, via Oral, Rectal, both Oral and Rectal, Enteric Tube, Stoma or Indwelling Catheter, Enteric Contrast as designated per enteric contrast guidelines) 1 Each 0 atorvastatin (LIPITOR) 40 mg tablet Take 40 mg by mouth once daily. loratadine (CLARITIN) 10 mg tablet Take 10 mg by mouth once daily. metFORMIN (GLUCOPHAGE) 1,000 mg tablet Metformin Active 1000 MG PO Every morning May 04, 2021 3:24pm carvedilol (COREG) 25 mg tablet Take 25 mg by mouth twice daily. acetaminophen (TYLENOL) 325 mg tablet Take 650 mg by mouth every 6 hours as needed. amLODIPine (NORVASC) 10 mg tablet Take 10 mg by mouth once daily. levothyroxine sodium (LEVOTHYROXINE ORAL) Take 50 mcg by mouth once daily. losartan (COZAAR) 100 mg tablet Take 100 mg by mouth once daily. rOPINIRole (REQUIP) 0.25 mg tablet Take 0.25 mg by mouth three times daily. semaglutide (OZEMPIC) 0.25 mg or 0.5 mg(2 mg/1.5 mL) pen injector Inject 0.25 mg subcutaneously one time a week. No current facility-administered medications for this visit. Facility-Administered Medications Ordered in Other Visits Medication Dose Route Frequency Provider Last Rate Last Admin lidocaine 20 mg/mL (2 %) injection (XYLOCAINE) X (OR/PROCEDURE) PRPriscilla Mazariegos MD 5 mL at 12/01/21 0922 lidocaine 20 mg/mL (2 %) injection (XYLOCAINE) X (OR/PROCEDURE) PRN Belia Mazariegos MD 5 mL at 12/01/21 0947 Need for Follow up: prn Referred/Supervised by: Mary/Mary GILLESPIE Billing Type: Re-assess/15 min 1 unit Time Spent with Patient: 15 minutes Signed by: Chey Zarate MS, RDN, LD documented in this encounter [facility] 12-14-2021 History of Present illness Narrative Images from the original note were not included. NAME: [facility] NO.: [id number] DATE OF SERVICE: December 14, 2021 (Elements copied from Dr. Dao's note dated December 04, 2021, have been reviewed and updated where appropriate, and all reflect current assessment and medical decision making during today's encounter, December 14, 2021) Referring Provider: Shaikh Yumiko Additional Clinicians involved in [place] L Cortes's care: DIAGNOSIS: Right breast cancer ASSESSMENT: 66 year old woman with right breast lump diagnosed with Stage cIIA IDC ER/HI++, HER2(0) breast cancer cT2 cN1, cMx in need of consideration for neoadjuvant chemotherapy and resection following completion of chemotherapy. Patient started neoadjuvant Taxotere and cytoxan with GSF on 12/04/21. Tolerated well with minor side effects. After she left the office, labs indicate elevation in BUN and creatinine, likely consistent with dehydration, will ask patient to return for IV hydration today/tomorrow and repeat CMP on , 12/17/21. (see phone encounter). Next chemo cycle is planned for 12/25/21. Pulmonary nodule--0.3cm RML nodule on CT chest, repeat imaging following treatment Thickened L adrenal gland on CTs--consider repeat imaging following treatment HPI: CASE HISTORY: 12/04/2021 - Start Taxotere + Cytoxan neoadjuvant. 11/27/2021 - NM bone scan - negative 11/20/2021 - CT A/P - negative 11/10/2021 MRI Breasts: - Birads 6 - rt breast - 7cmfn @ 10:00 3.6x3.1x2.5, 3-[address], lft breast Birads2 10/30/2021 CT Chest: multiple rt axillary LN, 0.3 cm right mid-lobe nodule - non-specific. 10/02/2021 US & Diag mammography - Right breast 12 O'Clock, 7 cm from nipple - 2.9 x 2.5 cm mass - x IDC +Axillary LN. G1, ER/HI 90/80% HER2 ([facility]) = 0 09/30/2021 right breast ultrasound: 2.9 x 2.5 x 2.3 cm mass 8 cm from the nipple at the 9 and 10 o'clock position of the right breast suspicious for malignancy. Suspicious lymph nodes in the right axilla noted. 08/2021 - noted right breast mass on self exam. Updated Visit, December 14, 2021: [place] [facility] returns for jagdish counts and follow up after starting neoadjuvant Taxotere and cyclophosphamide with GFS on 12/04/21. She does report having a headache for 2 days following treatment that was relieved with tylenol. Did have some constipation and hard stools. Had one episode of blood in stool on 12/11/21. None since. No nausea, vomiting or diarrhea. Appetite and taste is down but she is eating. Drinking is fine, but wine and coffee tastes bad. Some dry mouth but drinking at least 80-120cc of water everyday. No fevers, chills, cough, or shortness of breath. Updated Visit, December 04, 2021: [place] [facility] returns with [place] her daughter. Reviewed CT Abdomen / Pelvis. Bone scan was negative. Will proceed with treatment. Chaperoned exam notable for 3-4 cm right upper outer quadrant breast mass easily palpable. No palpable axillary LN's. Updated Visit, November 18 2021: [place] [facility] returns with her daughter [place] and has seen Dr. Mercedes and completed her MRI as well as CT Chest. Given the number of LN's involved, additional staging studies have been ordered to be completed including NM Bone scan and CT abdomen / Pelvis. Once these are completed and negative, we can proceed with planned neoadjuvant chemotherapy with up to 6 cycles of TC. Aside from being anxious, she is doing well. Initial Visit, October 21, 2021: Kiah Cortes presents today Hematology and Oncology evaluation. She is a 66 year old female who noted a mass on self breast exam in the right breast. 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 She's here with her daughter [place]. She was referred for medical oncology opinion regarding breast cancer. Will need to complete staging and anticipate lisa-adjuvant chemotherapy give peterson disease. FHX cancer: Daughter [place] - had cervical not ovarian Mother had lung cancer Another Daughter had lymphoma REVIEW OF SYSTEMS Per HPI and otherwise negative by full review of organ systems. ECOG PERFORMANCE STATUS: 0 PHYSICAL EXAMINATION: Vitals: BP 114/59 Pulse 76 Temp (Src) 97.5 (Temporal) Resp 16 Ht 5' 2.205 (1.58m) Wt 220 lb (99.8kg) SpO2 95% BMI 39.97 kg/(m^2). Body surface area is 2.09 meters squared. General: Alert and oriented, no distress, pleasant and cooperative. Heart: Regular, normal S1 and S2, no murmurs, rubs, or gallops Lungs: Clear to auscultation bilaterally Abdomen: Benign Extremities: Feet/ankles without edema, posterior tibial pulses full and symmetrical Breast: no breast exam today ALLERGIES: ALLERGIES Allergen Reactions Estrogens Rash Lisinopril Unknown Seasonal Allergies Itching, Other: See Comments MEDICATIONS: multivitamin/folic acid/biotin ([id number]-TFOGH, QE-SJ-AACYCO, ORAL)^Take 3 tablets by mouth once daily.^Disp: ^Rfl: ondansetron (ZOFRAN) 8 mg tablet^Take 1 tablet by mouth every 8 hours as needed for nausea/vomiting.^Disp: 90 tablet^Rfl: 1 prochlorperazine (COMPAZINE) 10 mg tablet^Take 1 tablet by mouth every 6 hours as needed.^Disp: 100 tablet^Rfl: 1 iv contrast (will be provided with radiology test)^CT ABD/PEL -Inject, intravenously, once for 1 dose.No IV access, insert saline lock prior to the beginning of sedation, infusion, injection of imaging exam. Discontinue saline lock post exam. If Pt. has a central line or IVAD, may access for administration according to line specific nursing protocol. Once exam is complete flush line and de-access according to line specific nursing protocol in the CT contrast administration guidelines link.^Disp: 1 Each^Rfl: 0 enteric contrast (will be provided with radiology test)^For CT ABD/PEL W IVCON Routine order Administer, As Directed One Time Only, via Oral, Rectal, both Oral and Rectal, Enteric Tube, Stoma or Indwelling Catheter, Enteric Contrast as designated per enteric contrast guidelines^Disp: 1 Each^Rfl: 0 atorvastatin (LIPITOR) 40 mg tablet^Take 40 mg by mouth once daily.^Disp: ^Rfl: loratadine (CLARITIN) 10 mg tablet^Take 10 mg by mouth once daily.^Disp: ^Rfl: metFORMIN (GLUCOPHAGE) 1,000 mg tablet^Metformin Active 1000 MG PO Every morning May 04, 2021 3:24pm^Disp: ^Rfl: carvedilol (COREG) 25 mg tablet^Take 25 mg by mouth twice daily.^Disp: ^Rfl: acetaminophen (TYLENOL) 325 mg tablet^Take 650 mg by mouth every 6 hours as needed.^Disp: ^Rfl: amLODIPine (NORVASC) 10 mg tablet^Take 10 mg by mouth once daily.^Disp: ^Rfl: levothyroxine sodium (LEVOTHYROXINE ORAL)^Take 50 mcg by mouth once daily.^Disp: ^Rfl: losartan (COZAAR) 100 mg tablet^Take 100 mg by mouth once daily.^Disp: ^Rfl: rOPINIRole (REQUIP) 0.25 mg tablet^Take 0.25 mg by mouth three times daily.^Disp: ^Rfl: semaglutide (OZEMPIC) 0.25 mg or 0.5 mg(2 mg/1.5 mL) pen injector^Inject 0.25 mg subcutaneously one time a week.^Disp: ^Rfl: LABORATORY VALUES: WBC (k/uL) Date Value 12/04/2021 6.12 RBC (m/uL) Date Value 12/14/2021 3.80 (L) Hemoglobin (g/dL) Date Value 12/14/2021 12.1 Hematocrit (%) Date Value 12/14/2021 36.2 MCV (fL) Date Value 12/14/2021 95.3 MCH (pg) Date Value 12/14/2021 31.8 MCHC (g/dL) Date Value 12/14/2021 33.4 RDW-CV (%) Date Value 12/14/2021 13.7 Platelet Count (k/uL) Date Value 12/14/2021 168 MPV (fL) Date Value 12/14/2021 10.6 Glucose (mg/dL) Date Value 12/14/2021 239 (H) BUN (mg/dL) Date Value 12/14/2021 31 (H) Creatinine (mg/dL) Date Value 12/14/2021 1.41 (H) Sodium (mmol/L) Date Value 12/14/2021 139 Potassium (mmol/L) Date Value 12/14/2021 3.8 Chloride (mmol/L) Date Value 12/14/2021 104 CO2 (mmol/L) Date Value 12/14/2021 27 Protein, Total (g/dL) Date Value 12/14/2021 6.3 Albumin (g/dL) Date Value 12/14/2021 3.8 (L) Calcium, Total (mg/dL) Date Value 12/14/2021 9.6 Alkaline Phosphatase (U/L) Date Value 12/14/2021 136 (H) Bilirubin, Total (mg/dL) Date Value 12/14/2021 0.2 AST (U/L) Date Value 12/14/2021 15 ALT (U/L) Date Value 12/14/2021 14 DIAGNOSIS: (C50.411, Z17.0) Malignant neoplasm of upper-outer quadrant of right breast in female, estrogen receptor positive (HCC) (primary encounter diagnosis) Plan: COMP METABOLIC PANEL, CBC + DIFF PATH: reviewed today on 12/14/21 Breast, right, at 12:00, 7 cm from the nipple, ultrasound-guided core biopsy ([id number], part A; 10/02/2021): ---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 ---Please see comment. Lymph node, right axillary tail, ultrasound-guided core biopsy ([id number], part B; 10/02/2021): ---Metastatic mammary carcinoma with signet ring features, measuring at least 13 mm in greatest dimension, likely representing a lymph node completely replaced by carcinoma. ---Please see comment. Right breast invasive carcinoma: ER: POSITIVE (100%, strong) HI: POSITIVE (100%, strong) HER2 IHC: NEGATIVE (0) Controls react as expected Right axillary tail metastasis: ER: POSITIVE (100%, strong) HI: POSITIVE (100%, strong) HER2 IHC: NEGATIVE (0) Controls react as expected IMAGING: Bone scan 11/27/21 No suspicious foci of activity. No scintigraphic evidence of osseous metastases. Likely degenerative/arthritic changes as described. CT abdomen and pelvis 11/20/21 . Nonspecific nodular thickening of the left adrenal gland. Consider interval follow-up. 2. Otherwise no evidence of intra-abdominal/intrapelvic metastases. 3. Subcentimeter left hepatic cyst. 4. Sigmoid colon diverticulosis without evidence of diverticulitis. 5. Nonspecific haziness of the mesenteric fat may represent edema or infectious/inflammatory etiologies. CT chest 10/30/21 1. Multiple enlarged right axillary lymph nodes, highly suspicious for neoplastic involvement. 2. A 0.3 cm right middle lobe pulmonary nodule is nonspecific. Continued attention on subsequent studies is suggested. PAST MEDICAL HISTORY Diagnosis Date Asthma Breast cancer (HCC) right breast Fibromyalgia HTN (hypertension) Migraine Obesity PAST SURGICAL HISTORY Procedure Laterality Date APPENDECTOMY BX OF BREAST; INCISIONAL Right PAST SURGICAL HISTORY OF Rt Shoulder PAST SURGICAL HISTORY OF Rt knee tendons PAST SURGICAL HISTORY OF Right shoulder tendons Social History Tobacco Use Smoking status: Never Passive exposure: Past Smokeless tobacco: Never Vaping Use Vaping Use: Never used Substance Use Topics Alcohol use: Yes Drug use: Not Currently No family history on file. Zack Winston PA-C CC: Shaikh Yumiko [id number] [facility] [id number] Shahana Mercedes documented in this encounter [facility] 12-14-2021 Miscellaneous Notes Pt notified and verbalizes understanding. Will be in @ 145 this afternoon. Message sent to the front counter clerk via Teams regarding scheduling. Miriam Nj RN Please call patient and advise that after she left the office, the rest of her labs resulted and surprisingly, although she is drinking plenty of fluids, her kidney function indicate dehydration. I would like her to come in for IV hydration if possible, push fluids at home, and repeat the cmp on . Zack Winston PA-C documented in this encounter [facility] 12-08-2021 Miscellaneous Notes CYCLE 1/DAY 1 POST TREATMENT CALL Today's date: December 08, 2021 Treatment Regimen: Docetaxel & Cyclophosphamide C1D1 Date: 12/04/2021 Called patient to follow-up on symptom management. Spoke with patient. SYMPTOM ASSESSMENT Neuro: Headache on Tuesday and Tuesday. Relieved w/ tylenol. and Numbness/Weakness/Tingling: Pt has pre existing peripheral neuropathy. No worse since starting treatment. CV/Resp: Cough: Yes; dry and occasional GI/: Appetite: Pt describes as ok . , Taste changes Yes. Reports Merlot tastes terrible. Also reports the she can no longer stand the smell of cabbage., Fluid intake: > 80 oz of fluids per day, and Constipation: yes, last BM this morning. Notes that she is passing stool, but in smaller amounts. Integument: None Activity: Patient reported decreased energy level Do you need to take naps? Yes; Do you wake up feeling rested? Yes Rates her fatigue 5-6/10. Most notable in the afternoon. Pain: No=0 (pain 0 on a scale of 0-10). Fever: No Chills: No Any new referrals needed? No Reinforced CURRENT treatment education based on current and anticipated symptoms. Discussed port/line care and patient verbalizes understanding: Yes. No problems noted w/ port site. Patient instructed to contact office or after hours Hematology/Oncology fellow for: temperature ? 100.4; questions or concerns. Patient verbalized understanding of when to seek medical attention and after hours number protocol. Miriam Nj RN documented in this encounter [facility] 12-04-2021 Miscellaneous Notes 1st report of treatment-Benefit investigation complete. Spoke with patient [place] today by phone. Patient is active with Medicare, LOC 80%, $233 deductible has $0 remaining. She has FEP [place] [employer] as secondary and I called and spoke with Keiko (Call Ref#[id number]) and basically they act as a Plan F policy, which covers the medicare deductible as well as the 20% allowable coinsurance. Estimate shows patient financial responsibility is $0 for each treatment in 2021. [place] Isl was very pleased with this news and expressed no financial needs at this time. Told her I would send her out my contact information for future reference if she has any changes she wants to speak to me about. Did send her information on [employer] assistance program as well in case she would qualify. documented in this encounter [facility] 12-04-2021 Instructions Narendra Dao MD - 12/04/2021 9:18 AM EDT Start Taxotere Cytoxan - plan 4-6 cycles in neoadjuvant setting Neulasta/ Onpro following RTC in 10 days - Dipti / Zack for Jagdish counts and with me in 3 weeks Labs prior to chemo. documented in this encounter [facility] 12-04-2021 History of Present illness Narrative Images from the original note were not included. NAME: Tima Cortesta [facility] NO.: [id number] DATE OF SERVICE: December 04, 2021 (Maddy) Some elements in this clinic note that are critical to medical decision making have been carefully reviewed and included from a prior clinic note dated: November 18, 2021 (Maddy) Referring Provider: Shaikh Yumiko Additional Clinicians involved in Kiah Cortes's care: DIAGNOSIS: Right breast cancer ASSESSMENT: 66 year old woman with right breast lump diagnosed with Stage cIIA IDC ER/HI++, HER2(0) breast cancer cT2 cN1, cMx in need of consideration for neoadjuvant chemotherapy and resection following completion of chemotherapy PLAN: Start Taxotere Cytoxan - plan 4-6 cycles in neoadjuvant setting Neulasta/ Onpro following RTC in 10 days - Dipti / Zack for Jagdish counts and with me in 3 weeks Labs prior to chemo. HPI: CASE HISTORY: 12/04/2021 - Start Taxotere + Cytoxan neoadjuvant. 11/27/2021 - NM bone scan - negative 11/20/2021 - CT A/P - negative 11/10/2021 MRI Breasts: - Birads 6 - rt breast - 7cmfn @ 10:00 3.6x3.1x2.5, 3-[address], lft breast Birads2 10/30/2021 CT Chest: multiple rt axillary LN, 0.3 cm right mid-lobe nodule - non-specific. 10/02/2021 US & Diag mammography - Right breast 12 O'Clock, 7 cm from nipple - 2.9 x 2.5 cm mass - x IDC +Axillary LN. G1, ER/HI 90/80% HER2 (I[facility]) = 0 09/30/2021 right breast ultrasound: 2.9 x 2.5 x 2.3 cm mass 8 cm from the nipple at the 9 and 10 o'clock position of the right breast suspicious for malignancy. Suspicious lymph nodes in the right axilla noted. 08/2021 - noted right breast mass on self exam. Updated Visit, December 04, 2021: Prince Edward Isl returns with [place] her daughter. Reviewed CT Abdomen / Pelvis. Bone scan was negative. Will proceed with treatment. Chaperoned exam notable for 3-4 cm right upper outer quadrant breast mass easily palpable. No palpable axillary LN's. Updated Visit, November 18 2021: Prince [place] Isl returns with her daughter [place] and has seen Dr. Mercedes and completed her MRI as well as CT Chest. Given the number of LN's involved, additional staging studies have been ordered to be completed including NM Bone scan and CT abdomen / Pelvis. Once these are completed and negative, we can proceed with planned neoadjuvant chemotherapy with up to 6 cycles of TC. Aside from being anxious, she is doing well. Initial Visit, October 21, 2021: Kiah Cortes presents today Hematology and Oncology evaluation. She is a 66 year old female who noted a mass on self breast exam in the right breast. 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 She's here with her daughter [place]. She was referred for medical oncology opinion regarding breast cancer. Will need to complete staging and anticipate lisa-adjuvant chemotherapy give peterson disease. FHX cancer: Daughter [place] - had cervical not ovarian Mother had lung cancer Another Daughter had lymphoma REVIEW OF SYSTEMS Per HPI and otherwise negative by full review of organ systems. ECOG PERFORMANCE STATUS: 0 PHYSICAL EXAMINATION: Vitals: BP 141/69 Pulse 76 Temp (Src) 97.4 (Temporal) Resp 16 Ht 5' 2.205 [verified 2 MA's shoes off[ (1.58m) Wt 223 lb (101.2kg) SpO2 95% BMI 40.52 kg/(m^2). Body surface area is 2.11 meters squared. General:This is an age-appropriate patient in no acute distress. Head: Atraumatic, symmetric with no lesions visible. Eyes: Pupils equally round and reactive to light, extraocular muscles intact. Neck: Supple Mouth: Mucous membranes are moist, no thrush is noted. Lungs: Clear to auscultation bilaterally with no wheezes crackles or rales. Cardiovascular: Regular rate and rhythm with no murmurs or gallops. Peripheral pulses: Normal. Gastrointestinal: Soft, nontender, normoactive bowel sounds, with no appreciable hepatosplenomegaly. Musculoskeletal: No appreciable bony abnormalities or tenderness. Extremities: Lower extremities without edema. Neurologic: Nonfocal to gross visualization. Alert and oriented 3. Psychiatric: No evidence of inappropriate anxiety or depression. Skin: No overt rashes wounds or petechiae. Lymph node exam: No appreciable lymphadenopathy in cervical supraclavicular or axillary lymph node chains. Chaperoned exam notable for 3-4 cm right upper outer quadrant breast mass easily palpable. No palpable axillary LN's.Left breast WNL. ALLERGIES: ALLERGIES Allergen Reactions Estrogens Rash Lisinopril Unknown Seasonal Allergies Itching, Other: See Comments MEDICATIONS: multivitamin/folic acid/biotin (ENEF-SSNI-QPSUR, FU-YI-HFINVN, ORAL)^Take 3 tablets by mouth once daily.^Disp: ^Rfl: ondansetron (ZOFRAN) 8 mg tablet^Take 1 tablet by mouth every 8 hours as needed for nausea/vomiting.^Disp: 90 tablet^Rfl: 1 prochlorperazine (COMPAZINE) 10 mg tablet^Take 1 tablet by mouth every 6 hours as needed.^Disp: 100 tablet^Rfl: 1 iv contrast (will be provided with radiology test)^CT ABD/PEL -Inject, intravenously, once for 1 dose.No IV access, insert saline lock prior to the beginning of sedation, infusion, injection of imaging exam. Discontinue saline lock post exam. If Pt. has a central line or IVAD, may access for administration according to line specific nursing protocol. Once exam is complete flush line and de-access according to line specific nursing protocol in the CT contrast administration guidelines link.^Disp: 1 Each^Rfl: 0 enteric contrast (will be provided with radiology test)^For CT ABD/PEL W IVCON Routine order Administer, As Directed One Time Only, via Oral, Rectal, both Oral and Rectal, Enteric Tube, Stoma or Indwelling Catheter, Enteric Contrast as designated per enteric contrast guidelines^Disp: 1 Each^Rfl: 0 atorvastatin (LIPITOR) 40 mg tablet^Take 40 mg by mouth once daily.^Disp: ^Rfl: loratadine (CLARITIN) 10 mg tablet^Take 10 mg by mouth once daily.^Disp: ^Rfl: metFORMIN (GLUCOPHAGE) 1,000 mg tablet^Metformin Active 1000 MG PO Every morning May 04, 2021 3:24pm^Disp: ^Rfl: carvedilol (COREG) 25 mg tablet^Take 25 mg by mouth twice daily.^Disp: ^Rfl: acetaminophen (TYLENOL) 325 mg tablet^Take 650 mg by mouth every 6 hours as needed.^Disp: ^Rfl: amLODIPine (NORVASC) 10 mg tablet^Take 10 mg by mouth once daily.^Disp: ^Rfl: levothyroxine sodium (LEVOTHYROXINE ORAL)^Take 50 mcg by mouth once daily.^Disp: ^Rfl: losartan (COZAAR) 100 mg tablet^Take 100 mg by mouth once daily.^Disp: ^Rfl: rOPINIRole (REQUIP) 0.25 mg tablet^Take 0.25 mg by mouth three times daily.^Disp: ^Rfl: semaglutide (OZEMPIC) 0.25 mg or 0.5 mg(2 mg/1.5 mL) pen injector^Inject 0.25 mg subcutaneously one time a week.^Disp: ^Rfl: LABORATORY VALUES: WBC (k/uL) Date Value 12/04/2021 6.12 RBC (m/uL) Date Value 12/04/2021 4.22 Hemoglobin (g/dL) Date Value 12/04/2021 13.3 Hematocrit (%) Date Value 12/04/2021 39.4 MCV (fL) Date Value 12/04/2021 93.4 MCH (pg) Date Value 12/04/2021 31.5 MCHC (g/dL) Date Value 12/04/2021 33.8 RDW-CV (%) Date Value 12/04/2021 13.3 Platelet Count (k/uL) Date Value 12/04/2021 212 MPV (fL) Date Value 12/04/2021 10.1 Glucose (mg/dL) Date Value 11/18/2021 93 BUN (mg/dL) Date Value 11/18/2021 23 (H) Creatinine (mg/dL) Date Value 11/18/2021 1.04 (H) Sodium (mmol/L) Date Value 11/18/2021 140 Potassium (mmol/L) Date Value 11/18/2021 3.7 Chloride (mmol/L) Date Value 11/18/2021 103 CO2 (mmol/L) Date Value 11/18/2021 25 Protein, Total (g/dL) Date Value 11/18/2021 7.1 Albumin (g/dL) Date Value 11/18/2021 4.3 Calcium, Total (mg/dL) Date Value 11/18/2021 10.2 Alkaline Phosphatase (U/L) Date Value 11/18/2021 89 Bilirubin, Total (mg/dL) Date Value 11/18/2021 0.4 AST (U/L) Date Value 11/18/2021 25 ALT (U/L) Date Value 11/18/2021 25 DIAGNOSIS: (C50.411, Z17.0) Malignant neoplasm of upper-outer quadrant of right breast in female, estrogen receptor positive (HCC) (primary encounter diagnosis) Plan: CBC + DIFF, COMP METABOLIC PANEL PAST MEDICAL HISTORY Diagnosis Date Asthma Breast cancer (HCC) right breast Fibromyalgia HTN (hypertension) Migraine Obesity PAST SURGICAL HISTORY Procedure Laterality Date APPENDECTOMY BX OF BREAST; INCISIONAL Right PAST SURGICAL HISTORY OF Rt Shoulder PAST SURGICAL HISTORY OF Rt knee tendons PAST SURGICAL HISTORY OF Right shoulder tendons Social History Tobacco Use Smoking status: Never Passive exposure: Past Smokeless tobacco: Never Vaping Use Vaping Use: Never used Substance Use Topics Alcohol use: Yes Drug use: Not Currently No family history on file. I spent a total of 30 minutes on the date of the service which included preparing to see the patient, [id number] patient care, completing clinical documentation, performing a medically appropriate examination, counseling and educating the patient/family/caregiver, ordering medications, tests, or procedures, and independently interpreting results (not separately reported). Narendra Dao MD, CPE Hematology and Oncology Services Provided at: [place], [place] CC: Shaikh Yumiko [address] [facility] [id number] Shahana Mercedes documented in this encounter [facility] 12-03-2021 Miscellaneous Notes Pt calls w/ last minute questions pertaining to tomorrow's appointment. Questions reviewed w/ pt and answered. Pt denies any further questions. Miriam Nj RN documented in this encounter [facility] 11-27-2021 Note HNO ID: [id number] Author: Nancy Abreu RT(R) Service: Nuclear Medicine Author Type: It Analyst Type: Progress Notes Filed: 11/27/2021 3:31 PM Note Text: RADIOLOGY SERVICE PROGRESS NOTE SERVICE DATE: 11/27/2021 SERVICE TIME: 3:07 PM PATIENT IDENTITY VERIFICATION COMPLETED USING TWO (2) STANDARD IDENTIFIERS: Name and Date of confirmed by patient verbally FALL SCREENING: Has the patient had 2 falls in the last year or 1 fall with injury or currently using an Ambulatory Assistive Device ([place], Cane, Wheelchair, Crutches, etc.)? Yes, Patient High Risk for Falls What interventions were put in place to prevent falls during this visit? Yellow Falls Risk Wristband Applied PATIENT GENDER DATA: .female : No status: No ALLERGIES: Reviewed and unchanged MEDICATIONS REVIEWED: Not applicable PATIENT RELEVANT IMPLANT DATA REVIEWED: Not Applicable CREATININE: Creatinine Date Value Ref Range Status 11/18/2021 1.04 (H) 0.58 - 0.96 mg/dL Final 10/21/2021 1.03 (H) 0.58 - 0.96 mg/dL Final Estimated Glomerular Filtration Rate Date Value Ref Range Status 11/18/2021 59 (L) >=60 mL/min/1.73m? Final Comment: Estimated Glomerular Filtration Rate (eGFR) is calculated using the 2020 CKD-EPI creatinine equation. This equation utilizes serum creatinine, sex, and age as parameters. The creatinine assay has traceable calibration to isotope dilution-mass spectrometry. Refer to KDIGO guidelines for clinical interpretation. In patients with unstable renal function, e.g. those with acute kidney injury, the eGFR may not accurately reflect actual GFR. P.O.C.T. RESULTS: N/A November 27, [address] PERFORMED: No IV SITE: Ambulatory: A peripheral IV was started in the Left antecubital site with a Angio cath: 22 gauge. POST EXAM PIV STATUS: Discontinued PROCEDURE TYPE: NM INJECT: Whole Body Bone Scan. 23.4 mCi Tc99m MDP. No other medications given.. ADMINISTRATION TIME: 15:18 PATIENT DISCHARGED TO: Ambulatory patient, left [place] department area. A Diagnostic radioactive procedure has taken place, with no further precautions necessary other than routine body substance precautions. More information regarding radiation safety can be found using this link: [email or web address] [email or web address]%20Medic [email or web address] SIGNATURE: RT Adelso(R), [facility] PATIENT NAME: Kiah Cortes DATE: November 27, 2021 TIME: 3:07 PM PAGER/CONTACT #: [facility] 11-27-2021 History of Present illness Narrative RADIOLOGY SERVICE PROGRESS NOTE SERVICE DATE: 11/27/2021 SERVICE TIME: 3:07 PM PATIENT IDENTITY VERIFICATION COMPLETED USING TWO (2) STANDARD IDENTIFIERS: Name and Date of confirmed by patient verbally FALL SCREENING: Has the patient had 2 falls in the last year or 1 fall with injury or currently using an Ambulatory Assistive Device (Walker, Cane, Wheelchair, Crutches, etc.)? Yes, Patient High Risk for Falls What interventions were put in place to prevent falls during this visit? Yellow Falls Risk Wristband Applied PATIENT GENDER DATA: .female : No status: No ALLERGIES: Reviewed and unchanged MEDICATIONS REVIEWED: Not applicable PATIENT RELEVANT IMPLANT DATA REVIEWED: Not Applicable CREATININE: Creatinine Date Value Ref Range Status 11/18/2021 1.04 (H) 0.58 - 0.96 mg/dL Final 10/21/2021 1.03 (H) 0.58 - 0.96 mg/dL Final Estimated Glomerular Filtration Rate Date Value Ref Range Status 11/18/2021 59 (L) >=60 mL/min/1.73m Final Comment: Estimated Glomerular Filtration Rate (eGFR) is calculated using the 2020 CKD-EPI creatinine equation. This equation utilizes serum creatinine, sex, and age as parameters. The creatinine assay has traceable calibration to isotope dilution-mass spectrometry. Refer to KDIGO guidelines for clinical interpretation. In patients with unstable renal function, e.g. those with acute kidney injury, the eGFR may not accurately reflect actual GFR. P.O.C.T. RESULTS: N/A November 27, [address] PERFORMED: No IV SITE: Ambulatory: A peripheral IV was started in the Left antecubital site with a Angio cath: 22 gauge. POST EXAM PIV STATUS: Discontinued PROCEDURE TYPE: NM INJECT: Whole Body Bone Scan. 23.4 mCi Tc99m MDP. No other medications given.. ADMINISTRATION TIME: 15:18 PATIENT DISCHARGED TO: Ambulatory patient, left [place] department area. A Diagnostic radioactive procedure has taken place, with no further precautions necessary other than routine body substance precautions. More information regarding radiation safety can be found using this link: [email or web address] [email or web address]%20 [email or web address] SIGNATURE: RT Adelso(R), [facility] PATIENT NAME: Kiah Cortes DATE: November 27, 2021 TIME: 3:07 PM PAGER/CONTACT #: documented in this encounter [facility] 11-24-2021 Miscellaneous Notes Pt notified and verbalizes understanding. Miriam Nj RN Before her chemo starts Any preference as to when? Miriam Nj RN Yes Pt would like to get the flu vaccine and 2nd covid booster. When do you advise she do this? Miriam Nj RN documented in this encounter 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 YES Confirmed date and time for chemotherapy ? YES Other appointments (labs, imaging) discussed? YES Discussed where to park (manager pathology), charge for parking NO Discussed where to report (building/floor) YES Any pre-medications ordered? NO Described the infusion room and what to expect. (What to wear, what to bring [iPad, books] amount of time treatment can take, meals and CC options for food) YES Note: Tour treatment room provided. Discussed whether the patient can eat prior to labs and treatment. YES Who is driving you to and from treatment? Daughter Discussed why it is important to bring someone with you. Yes, Resources discussed (music therapy, Art therapy, pet therapy, etc.) YES Education on chemotherapy (drug, side effects) discussed and that the patient will be receiving a C1D1 call within 7 days of treatment. YES Other topics discussed, interventions needed: NA Miriam Nj RN ONCOLOGY PATIENT EDUCATION NOTE TOPIC: Chemotherapy, Medications: Docetaxel & Cyclophosphamide READINESS TO LEARN: COGNITIVE ABILITY: Alert and oriented MOTIVATION TO LEARN: Interested FAMILY SUPPORT: High - Very involved in pt care INSTRUCTION PROVIDED TO: Patient and Daughter INSTRUCTION PROVIDED BY: Nurse Coordinator PATIENT LEARNS BEST BY: Multiple Methods FACTORS AFFECTING LEARNING: None PHYSICAL LIMITATIONS AFFECTING LEARNING: None LEARNING RESPONSE DIAGNOSIS: Breast Cancer METHOD OF INSTRUCTION: Individual instruction Written instruction - handouts Verbal instruction PATIENT/FAMILY RESPONSE: Verbalizes understanding of: CHEMOTHERAPY-Regimen, toxicity and side effects INFECTION MANAGEMENT-Signs and symptoms of an infection and importance of contacting the physician SYMPTOM MANAGEMENT-Correct actions to take to manage symptoms associated with his/her disease/illness WORSENING CONDITION-Signs and symptoms of a worsening condition that warrant a call to the physician Information received as demonstrated by interest and questions FOLLOW UP PLAN: Patient instructed to call with any further issues Contact information given. SUPPLEMENTAL MATERIAL: Written material was provided at this visit with the following information: - Chemotherapy education was provided by a pharmacist NO - Side effect management information was provided/discussed including but not limited to: anemia, appetite changes, arthralgia, bowel habit changes, diet, electrolyte disturbances, fatigue, hair loss, headache, hypersensitivity reaction, infection, mouth hygiene, mucositis, myalgia, nausea/vomitting, neutropenia, peripheral neuropathy, shortness of breath, skin changes, taste changes, thrombocytopenia YES - Provided important phone numbers and contacts during and after hours. YES - Provided information on symptoms that require immediate assistance. YES - Provided Chemotherapy when to call handouts YES - Preventing infection. YES - Treatment schedule and confirmation of appointment times. YES - Available support groups. NA - The importance of contraception during the course of chemotherapy YES - Prescriptions for anti-emetics or treatment prep was given: Compazine and Zofran. YES - A tour was given of the infusion suite with directions for the first day. YES - Neutropenic fever protocol discussed with patient, which included the importance of reporting any fever of 100.4F (38.0C) or greater to the healthcare team as noted on the provided wallet card and/or magnet. YES - [employer] Information. YES - Patient services information. YES Time Spent: 60 minutes REFERRAL (RECOMMENDATION): Pt has appointment scheduled w/ application operations engineer. Miriam Nj RN documented in this encounter [facility] 11-20-2021 History of Present illness Narrative SOCIAL WORK FOLLOW UP NOTE: [facility] Date of service:11/20/21 Kiah Cortes is being seen for a follow up social work visit. Today's visit includes: patient and daughter TOPICS ADDRESSED: Patient Services Team PLAN: Continue follow up as needed Assigned SW listed in Care Team tab: Yes SW met with the above listed Patient during her chemo ed. SW shared information about the Patient Services Team (SW, Dietitian and Art Therapist). A welcome bag was provided. SW will plan to meet with this Patient again to complete a psychosocial assessment. SW will remain available and will follow up as appropriate STEPHY Kitchen documented in this encounter [facility] 11-20-2021 History of Present illness Narrative Summary: IRB: [id number] Consent Presentation Clinical Trial Informed Consent Presentation IRB: [id number] Study Title: Genetic and inflammatory biomarkers in neuropathic pain secondary to chemotherapy (GENIE-B) - A study in patients undergoing treatment for breast cancer. Director Channel(s): Warren Garrido MD Director of Clinical Research for General Anesthesiology [address] [address] [email or web address] Real Estate Acquisition Analyst: Evangelina Cochran RN Patient seen today to obtain clinical trial informed consent. Patient states she has read the consent. Research plan, including all testing, potential risks/benefits, and follow-up were explained. Roles of the clinical trial personnel to be involved and the financial responsibilities of the patient regarding procedures were discussed. Patient questioned as to medications listed, Mobic and ultram. Patient stated that she has not been taking them. Patient has a history of fibromyalgia that is currently stable. Evangelina Cochran RN November 20, 2021 10:45 AM Upon further review of chart and scanned documents,the patient does not meets study criteria per protocol section 3.3.8 due to a scanned H&P that has type 2 diabetes with neuropathy listed as past medical history. All study related questions have been addressed or answered at this time. Patient called and notified of not being eligible for [id number]. Patient expressed understanding. Evangelina Cochran RN November 20, 2021 12:05 PM documented in this encounter [facility] 11-18-2021 Miscellaneous Notes The following approved medication requests have been transmitted electronically. Requested Prescriptions Signed Prescriptions Disp Refills ondansetron (ZOFRAN) 8 mg tablet 90 tablet 1 Sig: Take 1 tablet by mouth every 8 hours as needed for nausea/vomiting. Authorizing Provider: DIPTI MERRITT prochlorperazine (COMPAZINE) 10 mg tablet 100 tablet 1 Sig: Take 1 tablet by mouth every 6 hours as needed. Authorizing Provider: DIPTI MERRITT APRN.SECRETARIAL TEACHER Pt will be in on Tuesday, 11/20, for education. Scripts for antiemetics pended. Miriam Nj RN documented in this encounter [facility] 11-18-2021 Instructions Narendra Dao MD - 11/18/2021 1:[address] Abdomen/Pelvis ordered - please schedule here this week if possible. RTC after scans to start Taxotere Cytoxan - plan 6 cycles in neoadjuvant setting Needs Education. Labs prior to start. - Ok to use today's labs for first start. documented in this encounter [facility] 11-18-2021 History of Present illness Narrative Images from the original note were not included. NAME: Tima Cortesta [facility] NO.: [id number] DATE OF SERVICE: November 18, 2021 Some elements in this clinic note that are critical to medical decision making have been carefully reviewed and included from a prior clinic note dated: October 21, 2021 Referring Provider: Shaikh Yumiko Additional Clinicians involved in [place] Ramos Cortes's care: DIAGNOSIS: Right breast cancer ASSESSMENT: 66 year old woman with right breast lump diagnosed with Stage cIIA IDC ER/HI++, HER2(0) breast cancer cT2 cN1, cMx in need of consideration for neoadjuvant chemotherapy and resection following completion of staging studies. PLAN: CT Abdomen/Pelvis ordered - please schedule here this week if possible. RTC after scans to start Taxotere Cytoxan - plan 6 cycles in neoadjuvant setting - needs exam prior to start Needs Education. Labs prior to start. - Ok to use today's labs for first start. HPI: CASE HISTORY: 11/10/2021 MRI Breasts: - Birads 6 - rt breast - 7cmfn @ 10:00 3.6x3.1x2.5, 3-[address], lft breast Birads2 10/30/2021 CT Chest: multiple rt axillary LN, 0.3 cm right mid-lobe nodule - non-specific. 10/02/2021 US & Diag mammography - Right breast 12 O'Clock, 7 cm from nipple - 2.9 x 2.5 cm mass - x IDC +Axillary LN. G1, ER/HI 90/80% HER2 ([facility]) = 0 09/30/2021 right breast ultrasound: 2.9 x 2.5 x 2.3 cm mass 8 cm from the nipple at the 9 and 10 o'clock position of the right breast suspicious for malignancy. Suspicious lymph nodes in the right axilla noted. 08/2021 - noted right breast mass on self exam. Updated Visit, November 18 2021: [place] returns with her daughter Virginia and has seen Dr. Mercedes and completed her MRI as well as CT Chest. Given the number of LN's involved, additional staging studies have been ordered to be completed including NM Bone scan and CT abdomen / Pelvis. Once these are completed and negative, we can proceed with planned neoadjuvant chemotherapy with up to 6 cycles of TC. Aside from being anxious, she is doing well. Initial Visit, October 21, 2021: Kiah Cortes presents today Hematology and Oncology evaluation. She is a 66 year old female who noted a mass on self breast exam in the right breast. 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 She's here with her daughter Virginia. She was referred for medical oncology opinion regarding breast cancer. Will need to complete staging and anticipate lisa-adjuvant chemotherapy give peterson disease. FHX cancer: Daughter Virginia - had cervical not ovarian Mother had lung cancer Another Daughter had lymphoma REVIEW OF SYSTEMS Per HPI and otherwise negative by full review of organ systems. ECOG PERFORMANCE STATUS: 0 PHYSICAL EXAMINATION: Vitals: BP 123/67 Pulse 75 Temp (Src) 97.6 (Temporal) Resp 16 Ht 5' 2.008 (1.58m) Wt 221 lb 3.2 oz (100.3kg) SpO2 99% BMI 40.45 kg/(m^2). Body surface area is 2.09 meters squared. Exam limited to gross visualization where appropriate due to COVID-19. Gen.: This is an age-appropriate patient in no acute distress. Head: Appears atraumatic with no visible lesions. Eyes: Pupils equally round and reactive to light, extraocular muscles are intact. Neck: Supple. Mouth: Masked. Respiratory: Appears to be respiring comfortably. Neurologic: Nonfocal to gross visualization. Alert and oriented 3. Psychiatric: No evidence of inappropriate anxiety or depression. Skin: Visible areas of skin without rash, lesions, wounds or petechiae. ALLERGIES: ALLERGIES Allergen Reactions Estrogens Rash Lisinopril Unknown Seasonal Allergies Itching, Other: See Comments MEDICATIONS: iv contrast (will be provided with radiology test) CT ABD/PEL -Inject, intravenously, once for 1 dose.No IV access, insert saline lock prior to the beginning of sedation, infusion, injection of imaging exam. Discontinue saline lock post exam. If Pt. has a central line or IVAD, may access for administration according to line specific nursing protocol. Once exam is complete flush line and de-access according to line specific nursing protocol in the CT contrast administration guidelines link. enteric contrast (will be provided with radiology test) For CT ABD/PEL W IVCON Routine order Administer, As Directed One Time Only, via Oral, Rectal, both Oral and Rectal, Enteric Tube, Stoma or Indwelling Catheter, Enteric Contrast as designated per enteric contrast guidelines atorvastatin (LIPITOR) 40 mg tablet Take 40 mg by mouth once daily. loratadine (CLARITIN) 10 mg tablet Take 10 mg by mouth once daily. metFORMIN (GLUCOPHAGE) 1,000 mg tablet Metformin Active 1000 MG PO Every morning May 04, 2021 3:24pm carvedilol (COREG) 25 mg tablet Take 25 mg by mouth twice daily. acetaminophen (TYLENOL) 325 mg tablet Take 650 mg by mouth every 6 hours as needed. amLODIPine (NORVASC) 10 mg tablet Take 10 mg by mouth once daily. levothyroxine sodium (LEVOTHYROXINE ORAL) Take by mouth. losartan (COZAAR) 100 mg tablet Take 100 mg by mouth once daily. meloxicam (MOBIC) 15 mg tablet Take 15 mg by mouth once daily. (Patient not taking: No sig reported) rOPINIRole (REQUIP) 0.25 mg tablet Take 0.25 mg by mouth three times daily. semaglutide (OZEMPIC) 0.25 mg or 0.5 mg(2 mg/1.5 mL) pen injector Inject 0.25 mg subcutaneously one time a week. traMADol (ULTRAM) 50 mg tablet Take 50 mg by mouth every 6 hours as needed for pain. (Patient not taking: Reported on 10/21/2021) LABORATORY VALUES: WBC (k/uL) Date Value 11/18/2021 6.37 RBC (m/uL) Date Value 11/18/2021 4.23 Hemoglobin (g/dL) Date Value 11/18/2021 13.4 Hematocrit (%) Date Value 11/18/2021 39.7 MCV (fL) Date Value 11/18/2021 93.9 MCH (pg) Date Value 11/18/2021 31.7 MCHC (g/dL) Date Value 11/18/2021 33.8 RDW-CV (%) Date Value 11/18/2021 13.3 Platelet Count (k/uL) Date Value 11/18/2021 209 MPV (fL) Date Value 11/18/2021 10.5 Glucose (mg/dL) Date Value 10/21/2021 142 (H) BUN (mg/dL) Date Value 10/21/2021 26 (H) Creatinine (mg/dL) Date Value 10/21/2021 1.03 (H) Sodium (mmol/L) Date Value 10/21/2021 139 Potassium (mmol/L) Date Value 10/21/2021 4.0 Chloride (mmol/L) Date Value 10/21/2021 103 CO2 (mmol/L) Date Value 10/21/2021 27 Protein, Total (g/dL) Date Value 10/21/2021 6.9 Albumin (g/dL) Date Value 10/21/2021 4.4 Calcium, Total (mg/dL) Date Value 10/21/2021 10.4 (H) Alkaline Phosphatase (U/L) Date Value 10/21/2021 92 Bilirubin, Total (mg/dL) Date Value 10/21/2021 0.3 AST (U/L) Date Value 10/21/2021 19 ALT (U/L) Date Value 10/21/2021 16 DIAGNOSIS: (C50.411, Z17.0) Malignant neoplasm of upper-outer quadrant of right breast in female, estrogen receptor positive (HCC) (primary encounter diagnosis) Plan: CBC + DIFF, COMP METABOLIC PANEL PAST MEDICAL HISTORY Diagnosis Date Asthma Breast cancer (HCC) right breast Fibromyalgia HTN (hypertension) Migraine Obesity PAST SURGICAL HISTORY Procedure Laterality Date APPENDECTOMY BX OF BREAST; INCISIONAL Right PAST SURGICAL HISTORY OF Rt Shoulder PAST SURGICAL HISTORY OF Rt knee tendons PAST SURGICAL HISTORY OF Right shoulder tendons Social History Tobacco Use Smoking status: Never Passive exposure: Past Smokeless tobacco: Never Substance Use Topics Alcohol use: Yes Drug use: Not Currently No family history on file. I spent a total of 35 minutes on the date of the service which included preparing to see the patient, [id number] patient care, completing clinical documentation, obtaining and/or reviewing separately obtained history, performing a medically appropriate examination, counseling and educating the patient/family/caregiver, ordering medications, tests, or procedures, and independently interpreting results (not separately reported). Narendra Dao MD, CPE Hematology and Oncology Services Provided at: [place], [place] CC: [facility] [address] [place] [address] Shahana Mercedes documented in this encounter [facility] 11-18-2021 History of Present illness Narrative Oncology Nutrition Therapy Progress Note RECOMMENDED MALNUTRITION DIAGNOSIS: NO MALNUTRITION IDENTIFIED Some elements copied from my note on 10/30/2021, have been updated and all reflect current decision making from today, 11/18/2021 Nutrition Intervention: -continue current meal pattern of 3 meals/day and snack(s) as needed -include lean protein source at each meal/snack -reinforced heart healthy plate -encouraged adequate hydration Nutrition Monitoring & Evaluation: -PO Intake -Wt status -Biochemical Markers -Plan of care Date of last encounter: October 30, 2021 Patient met goal(s): Yes Patient's symptoms are: None Pt presents for nutrition counseling follow up. Pt is scheduled to begin treatment with taxotere and cytoxan on 12/02/2021. Pt denies any chewing/swallowing issues. Pt denies any current N/V/D/C. Pt's weight is stable since initial encounter. Appetite appears good. Intakes are good. Pt reports she has been more aware food choices and reading labels since initial encounter. Pt has switched from bologna and hot dogs to lean chicken, turkey, or ham. She is working on portion control by using smaller plates. Pt states she was keeping a food log, but did not find this to help hold her accountable. Reviewed with pt importance of healthy, balanced diet during treatment and focusing on slow, modest weight loss during treatment and importance of preserving lean muscle mass. Pt verbalized understanding. READINESS TO LEARN Cognitive ability: Alert and oriented Motivation to learn: Interested Family support: High - Very involved in pt care Instruction provided to: Patient Patient learns best by: Multiple Methods Factors affecting learning: None Physical limitations affecting learning: None Educational materials provided: none this visit Need for Follow up: will continue to follow Referred/Supervised by: Mary/Mary GILLESPIE Billing Type: Re-assess/15 min 2 units Billed Time: 30 minutes Signed by: Chey Zarate MS, RDN, LD documented in this encounter [facility] 11-18-2021 History of Present illness Narrative Summary: [id number] CASE [id number] Informed Consent CASE [id number] ([id number]): Tissue and Body Fluid Analysis from Patients with Cancer and Other Risk- Associated Lesions Patient seen in clinic for informed consent of the above mentioned protocol. Patient agrees to participate in the above mentioned research study. The patient has signed a copy of the informed consent. Patient has contact information for the study team and Dr. Narendra Dao M.D. See consent note in Epic. Patient eligible for a research blood draw. ALEM Capmbell, RN Clinical Research Nurse documented in this encounter [facility] 11-17-2021 Miscellaneous Notes Patient scheduled for CT. Spoke with NM to contact patient to schedule bone scan Please call to assist patient with scheduling a CT of the abdomen and pelvis and bone scan documented in this encounter [facility] 11-12-2021 History of Present illness Narrative Dr. Mercedes submitted a localization image review form. Dr. Mercedes request the following lesions be localized with a reflector. 1. Right axillary lymph node identified with a Q clip. 2. Right breast mass at the 10 o'clock position 8 cm from the nipple identified with outside biopsy clip. Mammogram dated 11/12/2021 is annotated. This is a nonbillable event for radiology planning purposes only. documented in this encounter [facility] 11-12-2021 Instructions Shahana Mercedes MD - 11/12/2021 12:10 PM EDT Nice to meet you today, we'll look forward to being a part of your care team. Please schedule your CT of the abdomen and your bone scan. Our team will be in touch to schedule the special clip placement for the breast mass and the lymph node. Please call with any additional questions/concerns. Care team: MD Gera Dahs MSPAS PA-C Janet Neptune, RN, BSN, CN-BN Zara De Souza MA Contact numbers: Scheduling contact number: [phone] Nurse / clinical questions: [phone] Fax number: [phone] Night/weekends/holidays: [phone] and ask for the Breast Surgeon Pan Operator documented in this encounter [facility] 11-12-2021 Miscellaneous Notes Vm left for pt to call if she is having any pain at her port site. If No, we will see her next week, 11/18, for Port draw and MARY appt.. If she is having pain, I asked for her to call back and let us know. Tracy Almazan, RN 11/18 should be ffine as long as no pain at port site. Thanks, Dipti Merritt APRN.SECRETARIAL TEACHER Received a call from the [employer] at [facility] following pt's mammogram. She states the pt thought her port may not be working. She had is placed 11/05 and had an MRI 11/10 (I am uncertain If her port was accessed at that time and do not see any note re: it not working properly.) she is scheduled for PORT/LAB and follow up 11/18. The tech states there is not redness, swelling or sign of infection to the site. HM: can we check her port at her 11/18 appt, or should she come in sooner. She does not at this time have anything scheduled for port access. Tracy Almazan RN documented in this encounter [facility] 11-12-2021 History of Present illness Narrative NEW BREAST CANCER - INITIAL SURGICAL VISIT SERVICE DATE: 11/12/2021 REFERRING PROVIDER: narendra dao MD, [facility] marta SUBJECTIVE: REASON FOR TODAY'S VISIT: Breast Cancer Evaluation HISTORY of PRESENT ILLNESS: Kiah Cortes is a 66 year old White female who presents for an evaluation of a new diagnosis of right breast cancer. She felt a right breast mass in August. She then had workup at an outside facility. She was found to have a 2.9cm mass at 10:00 7FN as well as multiple enlarged lymph nodes. She had a biopsy done at [facility]. Diagnosis was made at [facility] by means of ultrasound-guided core biopsy of Right breast. The pathology report showed Infiltrating Ductal Carcinoma Grade 2, ER positive, HI positive, HER2 non-amplified. Biopsy of the axillary lymph node was positive for metastatic disease. She saw med oncology and had an MRI, CT chest and mediport placed 11/05 in preparation for neoadjuvant chemotherapy. MRI breast showing a RIGHT 3.6 x 3.1 x 2.5 cm mass at 10:00 7FN and 3-4 abnormal lymph nodes in the right axilla. Left Birads 2. Repeat dx mammogram and US done today confirming above. HISTORY OF BREAST PROCEDURE(S): Denies any previous history of biopsies or surgeries aside from above. PAST MEDICAL HISTORY: PAST MEDICAL HISTORY Diagnosis Date Asthma Breast cancer (HCC) right breast Fibromyalgia HTN (hypertension) Migraine Obesity PAST SURGICAL HISTORY: PAST SURGICAL HISTORY Procedure Laterality Date APPENDECTOMY BX OF BREAST; INCISIONAL Right PAST SURGICAL HISTORY OF Rt Shoulder PAST SURGICAL HISTORY OF Rt knee tendons PAST SURGICAL HISTORY OF Right shoulder tendons OBSTETRIC RELATED HISTORY: Patient did breast feed. Age at of First Child: 15 years of age. Age at Onset of Menses: 9 years of age. Age at Menopause: 33 years of age. Ovaries: both intact Uterus: intact P: 3 No LMP recorded. Patient is postmenopausal. Exogenous Hormone Use: Patient denies use of exogenous hormones. FAMILY HISTORY: No family history on file. The patient is not of Ashkenazic Ancestry. Breast cancer: Negative Duaghter - ovarian or cervical cancer, unsure, no genetic test. Other daughter with NHL Mother - lung cancer Brother - Brain cancer SOCIAL HISTORY: Occupation: Retired Employment status: retired Social History Tobacco Use Smoking status: Never Passive exposure: Past Smokeless tobacco: Never Substance Use Topics Alcohol use: Yes Drug use: Not Currently ACTIVE PROBLEM LIST Malignant Neoplasm of Upper-Outer Quadrant of Right Breast in Female, Estrogen Receptor Positive (Hcc) - 10/21/2021 CURRENT MEDICATIONS: semaglutide (OZEMPIC) 0.25 mg or 0.5 mg(2 mg/1.5 mL) pen injector Inject 0.25 mg subcutaneously one time a week. atorvastatin (LIPITOR) 40 mg tablet Take 40 mg by mouth once daily. loratadine (CLARITIN) 10 mg tablet Take 10 mg by mouth once daily. metFORMIN (GLUCOPHAGE) 1,000 mg tablet Metformin Active 1000 MG PO Every morning May 04, 2021 3:24pm carvedilol (COREG) 25 mg tablet Take 25 mg by mouth twice daily. acetaminophen (TYLENOL) 325 mg tablet Take 650 mg by mouth every 6 hours as needed. amLODIPine (NORVASC) 10 mg tablet Take 10 mg by mouth once daily. levothyroxine sodium (LEVOTHYROXINE ORAL) Take by mouth. losartan (COZAAR) 100 mg tablet Take 100 mg by mouth once daily. meloxicam (MOBIC) 15 mg tablet Take 15 mg by mouth once daily. (Patient not taking: No sig reported) rOPINIRole (REQUIP) 0.25 mg tablet Take 0.25 mg by mouth three times daily. traMADol (ULTRAM) 50 mg tablet Take 50 mg by mouth every 6 hours as needed for pain. (Patient not taking: Reported on 10/21/2021) ALLERGIES Allergen Reactions Estrogens Rash Lisinopril Unknown Seasonal Allergies Itching, Other: See Comments REVIEW OF SYSTEMS: GENERAL: No weight loss, malaise or fevers HEENT: Negative for frequent or significant headaches, No changes in hearing or vision, no nose bleeds or other nasal problems RESPIRATORY: Negative for cough, hemoptysis, wheezing, COPD, dyspnea or shortness of breath CARDIOVASCULAR: Negative for chest pain, leg swelling, hypertension, CHF or palpitations GASTROINTESTINAL: Reports vague abdominal fullness. No nausea, vomiting, or diarrhea GENITOURINARY: No history of dysuria, frequency or incontinence GYNECOLOGICAL: Negative for abnormal vaginal bleeding, abnormal vaginal discharge MUSCULOSKELETAL: Right shoulder limited ROM after shoulder surgery earlier this year INTEGUMENTARY:Denies Scleroderma or Lupus. Denies chronic skin conditions. PSYCHOLOGICAL: Denies history of psychiatric illness. Patient feels she is coping well with recent Breast Cancer diagnosis. Negative for sleep disturbance, mood disorder and recent psychosocial stressors. All other reviewed and negative other than HPI. OBJECTIVE: PHYSICAL EXAM: BP 120/70 Ht 157.5 cm (5' 2 ) Wt 101.6 kg (224 lb) BMI 40.97 kg/m GENERAL:well-nourished, healthy, alert and oriented x 3, calm SKIN:warm, dry, skin color, texture, turgor normal HEAD/EYES:normocephalic, atraumatic, and anicteric NECK: supple, symmetrical, no thyromegaly RESPIRATORY: Respirations regular & non-labored ABDOMEN: soft, nondistended. No hepatomegaly., No masses MUSCULOSKELETAL: Slower ROM of right shoulder due to surgery this year. Patient ambulates independently BREASTS: The Patient was examined in the upright and supine positions. Breasts are symmetric. There are no significant fibrocystic changes. Patient's cup size is G. LEFT BREAST: The breast skin and nipple areolar complexes appear normal without retraction or lesions. There is no nipple discharge. There is no dominant mass or clinical abnormality noted in left breast. RIGHT BREAST: The breast skin and nipple areolar complexes appear normal without retraction or lesions. There is no nipple discharge. There is a palpable mass at 9:00-10:00 7FN about 3cm in size, firm, non tender. LEFT REGIONAL LYMPH NODES: There is no concerning supraclavicular, infraclavicular or axillary lymphadenopathy RIGHT REGIONAL LYMPH NODES: There is axillary lymphadenopathy, mobile, large low. IMAGING TO DATE: MRI 11/10/2021 IMPRESSION: KNOWN BIOPSY PROVEN MALIGNANCY Right Breast: Birads 6 - Irregular enhancing mass with clip artifact in the upper outer quadrant, correlating with biopsy proven malignancy at 10:00 7CMFN. Mass measures 3.6 x 3.1 x 2.5cm on MR. There are no additional suspicious enhancing findings. - 3-4 abnormal lymph nodes in the right axilla. One of these contains biopsy clip artifact and correlates with biopsy proven axillary metastasis. - Surgical/oncologic management is recommended. Left Breast: Birads 2 - No suspicious enhancing findings. Dx Mammogram and US of RIGHT breast There is 2.2 cm x 2.2 cm x 3 cm enlarged right axillary lymph node. This enlarged right axillary lymph node displays no fatty hilum. This correlates with mammography findings and the previous biopsy. There is an associated biopsy clip. Color flow imaging demonstrates that there is vascularity present. There are at least two additional right axillary lymph nodes that demonstrate abnormal morphology. There also is 3.1 cm x 2 cm x 1.8 cm irregular mass with an angular margin in the right breast at 10 o'clock posterior depth 8 cm from the nipple. This irregular mass is hypoechoic with posterior acoustic shadowing. This correlates with mammography findings and the previous biopsy. Color flow imaging demonstrates that there is vascularity present. Biopsy clip not identified by ultrasound. IMPRESSION: KNOWN BIOPSY PROVEN MALIGNANCY The 2.2 cm x 2.2 cm x 3 cm enlarged right axillary lymph node is consistent with the known carcinoma and is a known biopsy positive for malignancy. A surgical consult is recommended. The 3.1 cm x 2 cm x 1.8 cm irregular mass in the right breast at 10 o'clock posterior depth is a known biopsy positive for malignancy. A surgical consult is recommended. CT CHEST 10/30/2021 IMPRESSION: 1. Multiple enlarged right axillary lymph nodes, highly suspicious for neoplastic involvement. 2. A 0.3 cm right middle lobe pulmonary nodule is nonspecific. Continued attention on subsequent studies is suggested. 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 ---Please see comment. Lymph node, right axillary tail, ultrasound-guided core biopsy ([id number], part B; 10/02/2021): ---Metastatic mammary carcinoma with signet ring features, measuring at least 13 mm in greatest dimension, likely representing a lymph node completely replaced by carcinoma. ER: POSITIVE (100%, strong) HI: POSITIVE (100%, strong) HER2 IHC: NEGATIVE (0) GENETIC TESTING: Genetic testing done at Not done ASSESSMENT: Kiah Cortes is a 66 year old White female who presents with RIGHT breast mass 3.6 cm 10:00 7FN, IDC, Grade 2, ER pos, HI pos, HER 2 negative. CLINICAL STAGE RIGHT BREAST: T2,N1,Mx. PLAN: DIAGNOSIS: (C50.911, Z17.0) Malignant neoplasm of right breast in female, estrogen receptor positive, unspecified site of breast (HCC) (primary encounter diagnosis) (C50.911, C77.3) Breast cancer metastasized to axillary lymph node, right (HCC) I have examined Ms. Cortes and reviewed the physical findings, imaging and pathology reports with her. A discussion was held with the patient regarding the local-regional, as well as systemic treatment of her Breast Cancer. We discussed role of breast conservation surgery or mastectomy, indications and risks of sentinel lymph node biopsy, possibility of axillary lymph node dissection, breast reconstruction, and role of systemic and radiation therapy. Ms. Cortes needs further work-up at this time; diagnostic work up incomplete. CT abdomen/pelvis and Bone scan ordered to complete metastatic staging, especially given her vague GI symptoms Plan for neoadjuvant chemotherapy Yuliya business technology professor localization of positive axillary lymph node and right breast tumor Will follow up chemotherapy response and see her back in clinic to further discuss surgical options. IMAGING ORDERED TODAY: CT Scan for Stage IIB or greater, or symptoms suspicious for metastatic disease. Bone Scan for Stage IIB or greater, or symptoms suspicious for metastatic disease. REFERRAL(S) for breast cancer treatment planning considerations: Medical oncology consultation and Radiation oncology consultation All questions were answered and the patient had no further concerns at this time was given our contact information if she has any further questions or concerns. Shahana Mercedes MD documented in this encounter [facility] 11-12-2021 Note HNO ID: [id number] Author: RT Ti(R) Service: ? Author Type: Technologist Type: Progress Notes Filed: 11/12/2021 8:19 AM Note Text: Radiology Service Progress Note PATIENT NAME: Kiah Cortes DATE OF SERVICE: November 12, 2021 TIME: 8:19 AM PATIENT IDENTITY VERIFICATION COMPLETED USING TWO (2) IDENTIFIERS: Name and Date of confirmed by patient verbally. FALL SCREENING: Has the patient had 2 falls in the last year or 1 fall with injury or currently using an Ambulatory Assistive Device (Walker, Cane, Wheelchair, Crutches, etc.)? No PATIENT GENDER DATA: Female. status: : No status: NO. PATIENT RELEVANT IMPLANT DATA REVIEWED: Not Applicable RADIOLOGY DEPARTMENT: Mammography PERIPHERAL IV DATA: Not applicable SIGNED BY: RT Ti(R) November 12, 2021 8:19 AM [facility] 11-12-2021 History of Present illness Narrative Radiology Service Progress Note PATIENT NAME: Kiah Cortes DATE OF SERVICE: November 12, 2021 TIME: 8:19 AM PATIENT IDENTITY VERIFICATION COMPLETED USING TWO (2) IDENTIFIERS: Name and Date of confirmed by patient verbally. FALL SCREENING: Has the patient had 2 falls in the last year or 1 fall with injury or currently using an Ambulatory Assistive Device (Walker, Cane, Wheelchair, Crutches, etc.)? No PATIENT GENDER DATA: Female. status: : No status: NO. PATIENT RELEVANT IMPLANT DATA REVIEWED: Not Applicable RADIOLOGY DEPARTMENT: Mammography PERIPHERAL IV DATA: Not applicable SIGNED BY: RT Ti(R) November 12, 2021 8:19 AM documented in this encounter [facility] 11-10-2021 Miscellaneous Notes Radiology Service Progress Note DATE OF SERVICE: November 10, 2021 TIME: 4:08 PM PATIENT IDENTITY VERIFICATION COMPLETED USING TWO (2) STANDARD IDENTIFIERS: Name and Date of confirmed by patient verbally and Name and Date of confirmed by identification band. FALL SCREENING: Has the patient had 2 falls in the last year or 1 fall with injury or currently using an Ambulatory Assistive Device (Walker, Cane, Wheelchair, Crutches, etc.)? No PATIENT GENDER DATA: Female. status: : No status: NO. PATIENT RELEVANT IMPLANT DATA REVIEWED: Yes ALLERGIES: Reviewed and unchanged CONTRAST ALLERGY: NO. EXAM: MRI - CONTRAST TYPE: GROUP II PERIPHERAL IV DATA: Ambulatory: A peripheral IV was started in the Left antecubital site with a Angio cath: 22 gauge. RADIOLOGY DEPARTMENT: MR; Exam(s) Completed: Chest: Breast SIGNATURE: RT Vikki(R) PATIENT NAME: Kiah Cortes DATE: November 10, 2021 TIME: 4:08 PM documented in this encounter [facility] 11-09-2021 Miscellaneous Notes No - all correct - thanks Pt called inquiring what her visit at Dr. Mercedes is for? I went through her last encounters and upcoming visits with her. She wanted to make sure she is not having surgery ?? I discussed with her that the appt is for a consultation following her MRI and Diagnostic Mammo to discuss the results and next plan of care they recommend. She will then follow up with MARY for all information at that appt. MARY: any further information for patient? Tracy Almazan RN documented in this encounter [facility] 11-09-2021 Miscellaneous Notes We still have not received pathology slides, I called and LMOM for Lisa at below number to get an update on when these should be received. I left [facility] number to call me back. We still have not received surgical path slides or a phone call back from [facility]. I called them again today at [phone] and spoke with Lisa. She advised she never received a fax although I have confirmation these have been sent. I resent the release today and Lisa advised she will mail them out today. I called and spoke with [facility] as Dr. Kincaid was requesting images of the US on 09/30/21 and images of the right US procedure on 10/02/21. They advised they pushed these images. I spoke with [facility] as they were unclear what was all needed. I will contact film library to work on getting images uploaded as fast they can to send to Dr. Kincaid. I also spoke to [facility] film library at [phone], they advised they received the images and will upload them into [employer]. I called [facility] pathology at [phone], no answer I left a detailed message on when we can expect to get pathology slides. I gave [facility] number to call back at [phone]. Received outside records, looks as though stuff from [facility] was done in 2016. I will submit for second opinion on most recent studies from [facility]. I will also call and follow up on slides as they still have not been reported in [facility]. I will give outside imaging to be reviewed to [facility] staff. I spoke to [facility] pathology at they advised they never received the fax that was sent to them at [phone]. They asked that I fax a release to [phone]. This was faxed today with confirmation. Images from the original note were not included. Whitney Alberts RN You 22 hours ago (10:49 AM) ZULY Minaya We will start working on getting her outside images and slides and will add her on as soon as we have all that information. Thank you for the referral! Whitney I called pt to start working on getting outside records for us to submit a second opinion. Patient's most recent imaging and biopsy with diagnosis was made at [facility], prior to this year patient lived in [place] and had previous imaging at [facility] patient provided confirmation to get records on her behalf and also provided phone number to [facility] office of [phone]. I explained once all records are received we will contact patient to schedule next appts. Patient verbalized understanding. 4. Referral to Dr. Shahana Mercedes Good Morning! Dr. Dao would like to refer his patient to Dr. Shahana Mercedes for Right Breast CA. Please let me know if you have any questions. Thank you! Marimar Lee documented in this encounter [facility] 11-09-2021 Miscellaneous Notes Called and spoke to patient- was holding an appt for her on 11/12- her outside studies have been reviewed and imaging has been scheduled that day as well Patient has been moved to the 11:00 new cancer slot to accomodate imaging at 8:40 Patient has been seen by med onc at [facility] documented in this encounter [facility] 11-05-2021 Note HNO ID: [id number] Author: Qing Sotomayor RN Service: Radiology Author Type: Registered Nurse Type: Patient Education Filed: 11/05/2021 11:24 AM Note Text: Printed post procedure instructions and port information placed in chart [facility] 11-04-2021 Note HNO ID: [id number] Author: Aneta Kincaid MD Service: ? Author Type: Physician Type: Progress Notes Filed: 11/04/2021 9:08 PM Note Text: Review of outside imaging requested in this patient with newly diagnosed right breast cancer. She has no older imaging for comparison. Diagnostic mammogram from 09/30/21 shows a dense irregular mass in the upper outer right breast corresponding to a palpable complaint indicated by a BB marker. No other abnormality seen in either breast. Breast density is scattered. No focused ultrasound from 09/30/21 is obtained for review although it is reported. The mass is reported to be located between 9 and 10:00 in the right breast 8 cmfn measuring 2.9 x 2.5 x 2.3 cm with internal blood flow. Suspicious lymph nodes are also reported on the right. Ultrasound images from the ultrasound guided biopsy of the mass at 10:00 are available. The mass is demonstrated by ultrasound as a heterogenous irregular mass with internal blood flow measuring 2.9 x 2.1 x 2.3 cm. No axillary nodes are imaged on this exam. Post clip imaging of the right breast shows a biopsy clip at the posterior aspect of the mass. The name of this clip was not found in the paperwork available. On the post clip image there is a dense lymph node partially seen. There was reportedly a lymph node biopsy with clip placed on the right however these images are not available. Chest CT images of 10/30/21 was read at this institution, but notably showed at least three enlarged right axillary nodes, one appearing to contain a biopsy clip. Recommendation: The mass at the upper outer right breast at 10:00 7 cmfn has an associated biopsy clip and is a biopsy proven IDC. Ultrasound images of this mass are available on the biopsy films of 10/02/21 only. There is reportedly right axillary adenopathy that has been biopsied by ultrasound and found to be positive for malignancy. I have no ultrasound imaging of the right axilla (although this adenopathy is seen on subsequent chest CT). Recommend obtaining the outside imaging of the right breast and right axilla from 09/30/21 that is currently missing as well as the biopsy images of the right axillary node from 10/02/21 also currently missing. No evidence of malignancy in the left breast. If there is consideration for neoadjuvant chemotherapy, placing a business technology professor localizer in the abnormal biopsied node now may be of benefit. [facility] 11-04-2021 History of Present illness Narrative Review of outside imaging requested in this patient with newly diagnosed right breast cancer. She has no older imaging for comparison. Diagnostic mammogram from 09/30/21 shows a dense irregular mass in the upper outer right breast corresponding to a palpable complaint indicated by a BB marker. No other abnormality seen in either breast. Breast density is scattered. No focused ultrasound from 09/30/21 is obtained for review although it is reported. The mass is reported to be located between 9 and 10:00 in the right breast 8 cmfn measuring 2.9 x 2.5 x 2.3 cm with internal blood flow. Suspicious lymph nodes are also reported on the right. Ultrasound images from the ultrasound guided biopsy of the mass at 10:00 are available. The mass is demonstrated by ultrasound as a heterogenous irregular mass with internal blood flow measuring 2.9 x 2.1 x 2.3 cm. No axillary nodes are imaged on this exam. Post clip imaging of the right breast shows a biopsy clip at the posterior aspect of the mass. The name of this clip was not found in the paperwork available. On the post clip image there is a dense lymph node partially seen. There was reportedly a lymph node biopsy with clip placed on the right however these images are not available. Chest CT images of 10/30/21 was read at this institution, but notably showed at least three enlarged right axillary nodes, one appearing to contain a biopsy clip. Recommendation: The mass at the upper outer right breast at 10:00 7 cmfn has an associated biopsy clip and is a biopsy proven IDC. Ultrasound images of this mass are available on the biopsy films of 10/02/21 only. There is reportedly right axillary adenopathy that has been biopsied by ultrasound and found to be positive for malignancy. I have no ultrasound imaging of the right axilla (although this adenopathy is seen on subsequent chest CT). Recommend obtaining the outside imaging of the right breast and right axilla from 09/30/21 that is currently missing as well as the biopsy images of the right axillary node from 10/02/21 also currently missing. No evidence of malignancy in the left breast. If there is consideration for neoadjuvant chemotherapy, placing a business technology professor localizer in the abnormal biopsied node now may be of benefit. documented in this encounter [facility] 10-30-2021 History of Present illness Narrative Oncology Nutrition Therapy Initial Assessment RECOMMENDED MALNUTRITION DIAGNOSIS: NO MALNUTRITION IDENTIFIED Nutrition Diagnosis: Food and Nutrition related knowledge deficit related to lack of prior nutrition-related education as evidenced by verbalizes inaccurate or incomplete information OR no prior knowledge of need for [id number]-[id number] related recommendations. Nutrition Intervention: -encouraged weight maintenance if getting treatment -continue current meal pattern of 3 meals/day and snack(s) as needed -include lean protein source at each meal/snack -reviewed simple vs complex carbohydrates -reviewed heart healthy plate method -encouraged adequate hydration -provider contact information provided for further questions/concerns Nutrition Monitoring & Evaluation: -PO Intake -Wt status -Biochemical Markers -Plan of care Patient's symptoms are: None Pt presents for nutrition counseling for breast cancer. Pt's daughter, Roberta is present. Pt's tx plan is still pending. Pt denies any chewing/swallowing issues, denies current N/V/D/C. Pt denies food allergies/intolerances. Appetite appears to be good, Intakes are good. Pt reports consuming 3 meals per day and snacking in between. Per recall pt consumes large amounts of processed foods including frozen burritos, pot pies, and processed meats such as hot dogs and bologna. She reports consuming a 5-6oz glass of wine at least 2-3x per week. Pt appears eager to start making changes and lose weight. Discussed role of oncology dietitian and importance of consuming adequate calories and protein. Reviewed pt's goal of weight loss and discussed rapid/significant weight loss may not be recommended depending on if she is to get chemotherapy. Discussed slow, modest weight loss may be more appropriate. Educated pt on healthy eating basics and carbohydrates. Reviewed above interventions. Pt verbalized understanding. Thank you for allowing me to participate in the care of this pt. Readiness to Learn: Cognitive ability: Alert and oriented Motivation to learn: Interested Family support: High - Very involved in pt care Instruction provided to: Patient and family member Patient learns best by: Multiple Methods Factors affecting learning: None Physical limitations affecting learning: None Educational materials provided: Heart Healthy Plate Anthropometrics: Height: Last 1 Encounter Ht Readings: Date: Ht: 10/21/2021 158.3 cm (5' 2.32 ) Current weight: Last 1 Encounter Wt Readings: Date: Wt: 10/21/2021 101.8 kg (224 lb 6.4 oz) Estimated body mass index is 40.62 kg/m as calculated from the following: Height as of 10/21/21: 158.3 cm (5' 2.32 ). Weight as of 10/21/21: 101.8 kg (224 lb 6.4 oz). Resting Metabolic Rate: 1510 Weight Change: n/a Luke Body Weight: 50.1kg Estimated kilocalorie needs: 1503 kilocalories determined by 30 kcal/kg Estimated protein needs: 50-65 grams determined by 1.0-1.3 g/kg Luke weight Estimated fluid needs: ~1500 milliliters based on 1 mL per kcal (unless otherwise noted) Nutrition Focused Physical Exam: Unable to perform exam due to potential for patient discomfort (physical/emotional), will re-attempt during reassessment. Potential Signs of Inflammation: chronic condition Allergies: Patient has no known allergies. Medications: Current Outpatient Medications Medication Sig Dispense Refill atorvastatin (LIPITOR) 40 mg tablet Take 40 mg by mouth once daily. loratadine (CLARITIN) 10 mg tablet Take 10 mg by mouth once daily. metFORMIN (GLUCOPHAGE) 1,000 mg tablet Metformin Active 1000 MG PO Every morning May 04, 2021 3:24pm carvedilol (COREG) 25 mg tablet Take 25 mg by mouth twice daily. acetaminophen (TYLENOL) 325 mg tablet Take 650 mg by mouth every 6 hours as needed. amLODIPine (NORVASC) 10 mg tablet Take 10 mg by mouth once daily. levothyroxine sodium (LEVOTHYROXINE ORAL) Take by mouth. losartan (COZAAR) 100 mg tablet Take 100 mg by mouth once daily. meloxicam (MOBIC) 15 mg tablet Take 15 mg by mouth once daily. (Patient not taking: Reported on 10/21/2021) rOPINIRole (REQUIP) 0.25 mg tablet Take 0.25 mg by mouth three times daily. semaglutide (OZEMPIC) 0.25 mg or 0.5 mg(2 mg/1.5 mL) pen injector Inject 0.25 mg subcutaneously one time a week. (Patient not taking: Reported on 10/21/2021) traMADol (ULTRAM) 50 mg tablet Take 50 mg by mouth every 6 hours as needed for pain. (Patient not taking: Reported on 10/21/2021) No current facility-administered medications for this visit. Need for Follow up: will continue to follow Referred/Supervised by: Mary/Mary MNT Billing Type: Initial Assess/15 min 3 units Time Spent with Patient: 45 minutes Signed by: Chey Zarate MS, RDN, LD documented in this encounter [facility] 10-29-2021 Miscellaneous Notes I signed the consult order since it was never signed and has been pended for 3 days Zack Winston PA-C Thanks! Called pt, scheduled 10/30 @ 830am. PSS- can you please contact patient to schedule an appointment with me per her preference (in-person, phone, virtual). Thank you! Chey Zarate MS, WOODN, LD yes - staging is not complete until she after she sees a surgeon. Also waiting on other scans.... at least stage 2. Dr Zuniga Pt notified of above message and that a nutrition consult has been placed. She has a port placement scheduled next week. She is also aware Dr Shahana Mercedes, Breast Surgeon is awaiting all images and reports, biopsies, etc from [facility] and [facility]. She will be contacted once everything is rec'd and reviewed. She denies further needs at this time. HENRRY Drummond: please sign nutrition consult order Pt called with a couple of questions following 10/22 appt. She would like to know: 1) what stage cancer she has 2) Header Up was mentioned, but she did not get any further information MARY: Please advise documented in this encounter [facility] 10-22-2021 Miscellaneous Notes Images from the original note were not included. Jeanie Iversonn You 3 minutes ago (12:10 PM) JK Pt is scheduled. Left message w/ [facility] to refer patient for port placement. Marimar Lee documented in this encounter [facility] 10-21-2021 Instructions Narendra Dao MD - 10/21/2021 4:[address] Chest 2. MRI Breast [facility] 3. Labs done today 4. Referral to Dr. Shahana Mercedes 5. [facility] documented in this encounter [facility] 10-21-2021 History of Present illness Narrative Images from the original note were not included. NAME: Kiah Cortes [facility] NO.: [id number] DATE OF SERVICE: October 21, 2021 Referring Provider: Shaikh Yumiko Consultation requested by Dr. West for an opinion regarding Ms. Kiah Cortes, and my final recommendations will be communicated back to the requesting physician by way of shared medical record or letter via US mail. Additional Clinicians involved in Kiah Cortes's care: DIAGNOSIS: Right breast cancer ASSESSMENT: 66 year old woman with right breast lump diagnosed with IDC ER/HI HER2(0) breast cancer cT2 cN1, cMx in need of consideration for neoadjuvant chemotherapy and resection following completion of staging studies. PLAN: 1. CT Chest 2. MRI Breast [facility] 3. Labs done today 4. Referral to Dr. Shahana Mercedes 5. [facility] HPI: CASE HISTORY: 10/02/2021 US & Diag mammography - Right breast 12 O'Clock, 7 cm from nipple - 2.9 x 2.5 cm mass - x IDC +Axillary LN. G1, ER/HI 90/80% HER2 ([facility]) = 0 09/30/2021 right breast ultrasound: 2.9 x 2.5 x 2.3 cm mass 8 cm from the nipple at the 9 and 10 o'clock position of the right breast suspicious for malignancy. Suspicious lymph nodes in the right axilla noted. 08/2021 - noted right breast mass on self exam. Initial Visit, October 21, 2021: Kiah Cortes presents today Hematology and Oncology evaluation. She is a 66 year old female who noted a mass on self breast exam in the right breast. 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 She's here with her daughter Virginia. She was referred for medical oncology opinion regarding breast cancer. Will need to complete staging and anticipate lisa-adjuvant chemotherapy give peterson disease. FHX cancer: Daughter Virginia - had cervical not ovarian Mother had lung cancer Another Daughter had lymphoma REVIEW OF SYSTEMS Per HPI and otherwise negative by full review of organ systems. ECOG PERFORMANCE STATUS: 0 PHYSICAL EXAMINATION: Vitals: BP 123/61 Pulse 77 Temp (Src) 97.9 (Temporal) Resp 16 Ht 5' 2.323 [verified 2 MA's shoes off[ (1.58m) Wt 224 lb 6.4 oz (101.8kg) SpO2 94% BMI 40.62 kg/(m^2). Body surface area is 2.12 meters squared. General:This is an age-appropriate patient in no acute distress. Head: Atraumatic, symmetric with no lesions visible. Eyes: Pupils equally round and reactive to light, extraocular muscles intact. Neck: Supple Mouth: Mucous membranes are moist, no thrush is noted. Lungs: Clear to auscultation bilaterally with no wheezes crackles or rales. Cardiovascular: Regular rate and rhythm with no murmurs or gallops. Peripheral pulses: Normal. Gastrointestinal: Soft, nontender, normoactive bowel sounds, with no appreciable hepatosplenomegaly. Musculoskeletal: No appreciable bony abnormalities or tenderness. Extremities: Lower extremities without edema. Neurologic: Nonfocal to gross visualization. Alert and oriented 3. Psychiatric: No evidence of inappropriate anxiety or depression. Skin: No overt rashes wounds or petechiae. Lymph node exam: No appreciable lymphadenopathy in cervical supraclavicular or axillary lymph node chains. Chaperoned breast exam: Right breast 10 oclock palpable lesion, Deeper lesion palpable at 12 oclock - hader to palpate Axilla without masses. ALLERGIES: ALLERGIES No Known Allergies MEDICATIONS: atorvastatin (LIPITOR) 40 mg tablet Take 40 mg by mouth once daily. loratadine (CLARITIN) 10 mg tablet Take 10 mg by mouth once daily. metFORMIN (GLUCOPHAGE) 1,000 mg tablet Metformin Active 1000 MG PO Every morning May 04, 2021 3:24pm carvedilol (COREG) 25 mg tablet Take 25 mg by mouth twice daily. amLODIPine (NORVASC) 10 mg tablet Take 10 mg by mouth once daily. levothyroxine sodium (LEVOTHYROXINE ORAL) Take by mouth. losartan (COZAAR) 100 mg tablet Take 100 mg by mouth once daily. rOPINIRole (REQUIP) 0.25 mg tablet Take 0.25 mg by mouth three times daily. iv contrast (will be provided with radiology test) MRI Breast [facility] Inject, intravenously, once for 1 dose. No IV access, insert saline lock prior to the beginning of sedation, infusion, injection of imaging exam. Discontinue saline lock post exam. If Pt has a central line or IVAD, may access for administration according to line specific nursing protocol. Once exam is complete flush line and de-access according to line specific nursing protocol in the MR contrast administration guidelines link iv contrast (will be provided with radiology test) CT Chest W -Inject, intravenously, once for 1 dose.No IV access, insert saline lock prior to the beginning of sedation, infusion, injection of imaging exam. Discontinue saline lock post exam. If Pt. has a central line or IVAD, may access for administration according to line specific nursing protocol. Once exam is complete flush line and de-access according to line specific nursing protocol in the CT contrast administration guidelines link. acetaminophen (TYLENOL) 325 mg tablet Take 650 mg by mouth every 6 hours as needed. meloxicam (MOBIC) 15 mg tablet Take 15 mg by mouth once daily. (Patient not taking: Reported on 10/21/2021) semaglutide (OZEMPIC) 0.25 mg or 0.5 mg(2 mg/1.5 mL) pen injector Inject 0.25 mg subcutaneously one time a week. (Patient not taking: Reported on 10/21/2021) traMADol (ULTRAM) 50 mg tablet Take 50 mg by mouth every 6 hours as needed for pain. (Patient not taking: Reported on 10/21/2021) LABORATORY VALUES: WBC (k/uL) Date Value 10/21/2021 7.28 RBC (m/uL) Date Value 10/21/2021 4.38 Hemoglobin (g/dL) Date Value 10/21/2021 13.9 Hematocrit (%) Date Value 10/21/2021 41.1 MCV (fL) Date Value 10/21/2021 93.8 MCH (pg) Date Value 10/21/2021 31.7 MCHC (g/dL) Date Value 10/21/2021 33.8 RDW-CV (%) Date Value 10/21/2021 14.2 Platelet Count (k/uL) Date Value 10/21/2021 215 MPV (fL) Date Value 10/21/2021 10.1 Glucose (mg/dL) Date Value 10/21/2021 142 (H) BUN (mg/dL) Date Value 10/21/2021 26 (H) Creatinine (mg/dL) Date Value 10/21/2021 1.03 (H) Sodium (mmol/L) Date Value 10/21/2021 139 Potassium (mmol/L) Date Value 10/21/2021 4.0 Chloride (mmol/L) Date Value 10/21/2021 103 CO2 (mmol/L) Date Value 10/21/2021 27 Protein, Total (g/dL) Date Value 10/21/2021 6.9 Albumin (g/dL) Date Value 10/21/2021 4.4 Calcium, Total (mg/dL) Date Value 10/21/2021 10.4 (H) Alkaline Phosphatase (U/L) Date Value 10/21/2021 92 Bilirubin, Total (mg/dL) Date Value 10/21/2021 0.3 AST (U/L) Date Value 10/21/2021 19 ALT (U/L) Date Value 10/21/2021 16 DIAGNOSIS: (C50.411, Z17.0) Malignant neoplasm of upper-outer quadrant of right breast in female, estrogen receptor positive (HCC) (primary encounter diagnosis) Plan: CBC + DIFF, COMP METABOLIC PANEL, MRI BREAST WO/W IVCON BILAT, CT CHEST W IVCON, CONSULT TO GENERAL SURGERY, IR PORTOCATH PLACEMENT PAST MEDICAL HISTORY Diagnosis Date Asthma Breast cancer (HCC) right breast Fibromyalgia HTN (hypertension) Migraine Obesity PAST SURGICAL HISTORY Procedure Laterality Date APPENDECTOMY BX OF BREAST; INCISIONAL Right PAST SURGICAL HISTORY OF Rt Shoulder PAST SURGICAL HISTORY OF Rt knee tendons PAST SURGICAL HISTORY OF Right shoulder tendons Social History Tobacco Use Smoking status: Never Passive exposure: Past Smokeless tobacco: Never Substance Use Topics Alcohol use: Yes Drug use: Not Currently No family history on file. I spent a total of 60 minutes on the date of the service which included preparing to see the patient, [id number] patient care, completing clinical documentation, obtaining and/or reviewing separately obtained history, performing a medically appropriate examination, counseling and educating the patient/family/caregiver, ordering medications, tests, or procedures, communicating with other HCPs (not separately reported), and independently interpreting results (not separately reported). Narendra Dao MD, CPE [facility] Provided at: [place], [place] CC: Shaikh Yumiko [address] [facility] [place] [id number] Shahana Mercedes documented in this encounter [facility] 09-02-2021 Note PROCEDURE: XR SHOULD ER RT 2V or > HISTORY: Shoulder joint prosthesis present ; right shoulder pain post replacement COMPARISON: XR shoulder right 06/23/2021 FINDINGS: BONES:Right total shoulder replacement without evidence of hardware fracture or loosening. No acute bone fracture dislocation. Marked degenerative changes of the acromioclavicular joint with large undersurface osteophyte. SOFT TISSUES:No visible soft tissue swelling. EFFUSION:None visible. OTHER: Negative. IMPRESSION: 1. Right shoulder replacement without evidence of hardware failure or change in alignment. 2. Degenerative changes of the acromioclavicular joint which would predispose to rotator cuff injury. 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 She is progressing well from surgery. Instructed on continued residential motion and strengthening exercises. Call with questions/chantell rns. Aug, Acute pain of right knee (ICD-10 - M25.561) We will obtain xrays next visit. Instructed on gentle motion exercises in the meantime. 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 She is progressing well from surgery. Instructed on progression of motion and strengthening exercises. Formal therapy order provided to start next week. Call with questions/concerns. 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 Instructed on gentle motion exercises including table and wall walks, these were demonstrated. Advised patient to start leaving incision open to air. Call with questions/concern s. 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 The patient has stated that they do not want to live in this condition any longer and would like to proceed with surgery. I feel that this is a reasonable option at this point and we may be able to improve function and decrease pain. We have discussed the process and procedure in detail including not eating or drinking 8 hrs prior to surgery, the need for general anesthesia and associated respiratory, cardiac, and patient position complications (such as nerve traction and compression). The benefit of regional block anesthesia and complications of arm numbness and neck pain. We discussed that pain and stifffness can be expected after surgery for months. The complications of infection, scapular notching, dislocation, cuff repair failure, component loosening, loss of motion, hematoma, wound problems, residential pain and stiffness are well known problems that can require repeat surgeries. Patient is fully aware that this shoulder may never be the same. We discussed that our team will do everything we can to help achieve the best outcome possible. Apr, Complete tear of right rotator cuff, unspecified whether traumatic (ICD-10 - M75.121) Apr, Acute pain of right shoulder (ICD-10 - M25.511) Apr, Pre-op exam (ICD-10 - Z01.818) [facility] Other 02-15-2022 Evaluation note* Encounter Date Diagnosis Assessment Notes Treatment Notes Treatment Clinical Notes Mar, Primary osteoarthritis of right shoulder (ICD-10 - M19.011) Previous MRI again reviewed with patient. Discussed living with condition versus reverse total shoulder arthroplasty. We will plan on reverse total shoulder replacement surgery. The patient has stated that they do not want to live in this condition any longer and would like to proceed with surgery. I feel that this is a reasonable option at this point and we may be able to improve function and decrease pain. We have discussed the process and procedure in detail including not eating or drinking 8 hrs prior to surgery, the need for general anesthesia and associated respiratory, cardiac, and patient position complications (such as nerve traction and compression). The benefit of regional block anesthesia and complications of arm numbness and neck pain. We discussed that pain and stifffness can be expected after surgery for months. The complications of infection, scapular notching, dislocation, cuff repair failure, component loosening, loss of motion, hematoma, wound problems, residential pain and stiffness are well known problems that can require repeat surgeries. Patient is fully aware that this shoulder may never be the same. We discussed that our team will do everything we can to help achieve the best outcome possible. Mar, Complete tear of right rotator cuff, unspecified whether traumatic (ICD-10 - M75.121) Mar, Acute pain of right shoulder (ICD-10 - M25.511) Mar, Pre-op exam (ICD-10 - Z01.818) [facility] Other 01-18-2022 Evaluation note* Encounter Date Diagnosis Assessment Notes Treatment Notes Treatment Clinical Notes Feb, Acute pain of right shoulder (ICD-10 - M25.511) Feb, Internal derangement of right shoulder (ICD-10 - M24.811) I have a high suspicion of a rotator cuff tear based on the history of symptoms and physical exam findings. An MRI will be necessary to plan further treatment options and potential surgey. Patient instructed on gentle motion and strength exercise. [facility] Other Evaluation + Plan note Future Appointments Appointment Date:07/22/2022 11:00:00 AM Scheduled Provider: Location:[facility] Appointment Type: Medicare Wellness Subsequent Appointment Date:08/09/2022 10:00:00 AM Scheduled Provider:Nate Bobby MD Location:[facility] Appointment Type: Open Diagnostic Tests Pending * CBC w/ Auto Diff 07/05/22 * Comprehensive Metabolic Panel 07/05/22 * Lipid Panel 07/05/22 * TSH With T4fr Reflex 07/05/22 * CCP Antibodies IgG/IgA 07/05/22 * ANGÉLICA w/Reflex if POS [facility]ments Appointment Date:02/07/2023 09:20:00 AM Scheduled Provider:Nate Bobby MD Location:[facility] [place] Appointment Type: Open Appointment Date:06/29/2023 11:00:00 AM Scheduled Provider: Location:[facility] Appointment Type: Medicare Wellness Subsequent Diagnostic Tests Pending * HCV Antibody RFX to Quant PCR 01/31/23 [facility] information [facility] Work Phone: Evaluation noteNo [employer] Other Evaluation note* Diagnosis Malignant neoplasm of upper-outer quadrant of right breast in female, estrogen receptor positive (HCC)- Primary Malignant neoplasm of upper-outer quadrant of right breast in female, estrogen receptor positive (HCC) [facility] Malignant neoplasm of upper-outer quadrant of right breast in female, estrogen receptor positive (HCC)- Primary Malignant neoplasm of upper-outer quadrant of right breast in female, estrogen receptor positive (HCC) [facility] Onset Date Resolution Status Breast mass, right acute [facility] Work Phone: Evaluation note* Diagnosis Malignant neoplasm of upper-outer quadrant of right breast in female, estrogen receptor positive (HCC)- Primary Malignant neoplasm of upper-outer quadrant of right breast in female, estrogen receptor positive (HCC) [facility] Malignant neoplasm of upper-outer quadrant of right breast in female, estrogen receptor positive (HCC) [facility] Diagnosis Malignant neoplasm of right breast in female, estrogen receptor positive, unspecified site of breast (HCC)- Primary Breast cancer metastasized to axillary lymph node, right (HCC) [facility] Diagnosis Malignant neoplasm of upper-outer quadrant of right breast in female, estrogen receptor positive (HCC) [facility] Diagnosis Malignant neoplasm of upper-outer quadrant of right breast in female, estrogen receptor positive (HCC) [facility] Diagnosis Malignant neoplasm of upper-outer quadrant of right breast in female, estrogen receptor positive (HCC)- Primary [facility] Diagnosis Malignant neoplasm of upper-outer quadrant of right breast in female, estrogen receptor positive (HCC)- Primary [facility] Diagnosis Malignant neoplasm of right breast in female, estrogen receptor positive, unspecified site of breast (HCC) [facility] Diagnosis Malignant neoplasm of upper-outer quadrant of right breast in female, estrogen receptor positive (HCC)- Primary [facility] Diagnosis Malignant neoplasm of upper-outer quadrant of right breast in female, estrogen receptor positive (HCC) [facility] Diagnosis Malignant neoplasm of upper-outer quadrant of right breast in female, estrogen receptor positive (HCC)- Primary [facility] Diagnosis Malignant neoplasm of upper-outer quadrant of right breast in female, estrogen receptor positive (HCC)- Primary [facility] Diagnosis Malignant neoplasm of upper-outer quadrant of right breast in female, estrogen receptor positive (HCC)- Primary [facility] Diagnosis Malignant neoplasm of upper-outer quadrant of right breast in female, estrogen receptor positive (HCC) [facility] Diagnosis Malignant neoplasm of upper-outer quadrant of right breast in female, estrogen receptor positive (HCC)- Primary [facility] Diagnosis Malignant neoplasm of upper-outer quadrant of right breast in female, estrogen receptor positive (HCC) [facility] Diagnosis Malignant neoplasm of upper-outer quadrant of right breast in female, estrogen receptor positive (HCC)- Primary [facility] Diagnosis Malignant neoplasm of upper-outer quadrant of right breast in female, estrogen receptor positive (HCC) [facility] Diagnosis Malignant neoplasm of upper-outer quadrant of right breast in female, estrogen receptor positive (HCC)- Primary [facility] Diagnosis Malignant neoplasm of upper-outer quadrant of right breast in female, estrogen receptor positive (HCC)- Primary Need for influenza vaccination Need for prophylactic vaccination and inoculation against influenza [facility] Diagnosis Malignant neoplasm of upper-outer quadrant of right breast in female, estrogen receptor positive (HCC)- Primary Malignant neoplasm of female breast, unspecified estrogen receptor status, unspecified laterality, unspecified site of breast (HCC) Lung nodules Other nonspecific abnormal finding of lung field [facility] Diagnosis Malignant neoplasm of upper-outer quadrant of right breast in female, estrogen receptor positive (HCC)- Primary [facility] Diagnosis Malignant neoplasm of right breast in female, estrogen receptor positive, unspecified site of breast (HCC)- Primary Breast cancer metastasized to axillary lymph node, right (HCC) [facility] Diagnosis Diverticulitis- Primary Diverticulitis of colon (without mention of hemorrhage) Malignant neoplasm of upper-outer quadrant of right breast in female, estrogen receptor positive (HCC) Breast cancer metastasized to axillary lymph node, right (HCC) [facility] Diagnosis Preop examination- Primary Preoperative examination, unspecified Primary hypertension Unspecified essential hypertension Hyperlipidemia, unspecified hyperlipidemia type Hypothyroidism, unspecified type Type 2 diabetes mellitus without complication, without long-term current use of insulin (HCC) Aortic valve insufficiency, etiology of cardiac valve disease unspecified Mild intermittent asthma without complication Unspecified asthma RLS (restless legs syndrome) Restless legs syndrome (RLS) Morbid obesity (HCC) Morbid obesity Anemia, unspecified type Malignant neoplasm of upper-outer quadrant of right breast in female, estrogen receptor positive (HCC) Breast cancer metastasized to axillary lymph node, right (HCC) [facility] Breast cancer metastasized to axillary lymph node, right (HCC)- Primary Malignant neoplasm of upper-outer quadrant of right breast in female, estrogen receptor positive (HCC) Breast cancer metastasized to axillary lymph node, right (HCC) [facility] Diagnosis Diverticulitis Diverticulitis of colon (without mention of hemorrhage) Malignant neoplasm of upper-outer quadrant of right breast in female, estrogen receptor positive (HCC) Breast cancer metastasized to axillary lymph node, right (HCC) [facility] Diagnosis Malignant neoplasm of upper-outer quadrant of right breast in female, estrogen receptor positive (HCC)- Primary [facility] Diagnosis Malignant neoplasm of upper-outer quadrant of right breast in female, estrogen receptor positive (HCC)- Primary Breast cancer metastasized to axillary lymph node, right (HCC) Postop check Follow-up examination, following unspecified surgery [facility] Diagnosis Lung nodules- Primary Other nonspecific abnormal finding of lung field Malignant neoplasm of upper-outer quadrant of right breast in female, estrogen receptor positive (HCC) [facility] Diagnosis Malignant neoplasm of upper-outer quadrant of right breast in female, estrogen receptor positive (HCC)- Primary Diverticulitis Diverticulitis of colon (without mention of hemorrhage) [facility] Diagnosis Malignant neoplasm of upper-outer quadrant of right breast in female, estrogen receptor positive (HCC)- Primary Breast cancer metastasized to axillary lymph node, right (HCC) Postop check Follow-up examination, following unspecified surgery [facility] Diagnosis Malignant neoplasm of right breast in female, estrogen receptor positive, unspecified site of breast (HCC)- Primary At risk for lymphedema Other specified conditions influencing health status Post-operative state Other postprocedural status [facility] Diagnosis Malignant neoplasm of upper-outer quadrant of right breast in female, estrogen receptor positive (HCC)- Primary [facility] Diagnosis Malignant neoplasm of upper-outer quadrant of right breast in female, estrogen receptor positive (HCC) [facility] Diagnosis Malignant neoplasm of upper-outer quadrant of right breast in female, estrogen receptor positive (HCC)- Primary Breast cancer metastasized to axillary lymph node, right (HCC) Post-operative state Other postprocedural status At risk for lymphedema Other specified conditions influencing health status [facility] Diagnosis Malignant neoplasm of upper-outer quadrant of right breast in female, estrogen receptor positive (HCC)- Primary Breast cancer metastasized to axillary lymph node, right (HCC) At risk for lymphedema Other specified conditions influencing health status [facility] Diagnosis Malignant neoplasm of upper-outer quadrant of right breast in female, estrogen receptor positive (HCC) Breast cancer metastasized to axillary lymph node, right (HCC) At risk for lymphedema Other specified conditions influencing health status [facility] Diagnosis Malignant neoplasm of upper-outer quadrant of right breast in female, estrogen receptor positive (HCC) [facility] Diagnosis Malignant neoplasm of upper-outer quadrant of right breast in female, estrogen receptor positive (HCC)- Primary Diverticulitis Diverticulitis of colon (without mention of hemorrhage) [facility] Diagnosis Malignant neoplasm of upper-outer quadrant of right breast in female, estrogen receptor positive (HCC)- Primary [facility] Diagnosis Malignant neoplasm of upper-outer quadrant of right breast in female, estrogen receptor positive (HCC)- Primary Breast cancer metastasized to axillary lymph node, right (HCC) Dehiscence of incision, sequela Postop check Follow-up examination, following unspecified surgery [facility] Diagnosis Malignant neoplasm of right breast in female, estrogen receptor positive, unspecified site of breast (HCC) At risk for lymphedema Other specified conditions influencing health status Post-operative state Other postprocedural status [facility] Diagnosis Breast cancer metastasized to axillary lymph node, right (HCC)- Primary [facility] Diagnosis Malignant neoplasm of upper-outer quadrant of right breast in female, estrogen receptor positive (HCC)- Primary Breast cancer metastasized to axillary lymph node, right (HCC) Dehiscence of incision, sequela Postop check Follow-up examination, following unspecified surgery [facility] Diagnosis Malignant neoplasm of right breast in female, estrogen receptor positive, unspecified site of breast (HCC)- Primary At risk for lymphedema Other specified conditions influencing health status Post-operative state Other postprocedural status [facility] Diagnosis Malignant neoplasm of right breast in female, estrogen receptor positive, unspecified site of breast (HCC)- Primary At risk for lymphedema Other specified conditions influencing health status Post-operative state Other postprocedural status Malignant neoplasm of upper-outer quadrant of right breast in female, estrogen receptor positive (HCC) documented in this encounter [facility] [facility] Diagnosis Malignant neoplasm of upper-outer quadrant of right breast in female, estrogen receptor positive (HCC)- Primary [facility] Diagnosis Malignant neoplasm of upper-outer quadrant of right breast in female, estrogen receptor positive (HCC)- Primary Breast cancer metastasized to axillary lymph node, right (HCC) Postop check Follow-up examination, following unspecified surgery [facility] Malignant neoplasm of upper-outer quadrant of right breast in female, estrogen receptor positive (HCC)- Primary Breast cancer metastasized to axillary lymph node, right (HCC) Dehiscence of incision, sequela [facility] Diagnosis Breast cancer metastasized to axillary lymph node, right (HCC)- Primary [facility] Diagnosis Malignant neoplasm of upper-outer quadrant of right breast in female, estrogen receptor positive (HCC)- Primary [facility] Diagnosis Malignant neoplasm of upper-outer quadrant of right breast in female, estrogen receptor positive (HCC)- Primary [facility] Diagnosis Malignant neoplasm of upper-outer quadrant of right breast in female, estrogen receptor positive (HCC)- Primary [facility] Diagnosis Major depressive disorder, recurrent episode, moderate (HCC)- Primary Major depressive disorder, recurrent episode, moderate Obesity, Class III, BMI 40-49.9 (morbid obesity) (HCC) Morbid obesity [facility] Diagnosis Malignant neoplasm of upper-outer quadrant of right breast in female, estrogen receptor positive (HCC)- Primary [facility] Diagnosis OPENED IN ERROR- Primary To allow closing an encounter opened in error (used in SmartSet) documented [facility] Diagnosis Major depressive disorder, recurrent episode, moderate (HCC) Major depressive disorder, recurrent episode, moderate Obesity, Class III, BMI 40-49.9 (morbid obesity) (HCC) Morbid obesity documented [facility] Diagnosis Malignant neoplasm of upper-outer quadrant of right breast in female, estrogen receptor positive (HCC)- Primary Breast cancer metastasized to axillary lymph node, right (HCC) [facility] Diagnosis Malignant neoplasm of upper-outer quadrant of right breast in female, estrogen receptor positive (HCC) Breast cancer metastasized to axillary lymph node, right (HCC) [facility] Diagnosis Herpes zoster without complication- Primary Herpes zoster without mention of complication Breast cancer metastasized to axillary lymph node, right (HCC) [facility] Diagnosis Malignant neoplasm of upper-outer quadrant of right breast in female, estrogen receptor positive (HCC)- Primary Breast cancer metastasized to axillary lymph node, right (HCC) [facility] Diagnosis Malignant neoplasm of upper-outer quadrant of right breast in female, estrogen receptor positive (HCC) [facility] Diagnosis Malignant neoplasm of upper-outer quadrant of right breast in female, estrogen receptor positive (HCC)- Primary Breast cancer metastasized to axillary lymph node, right (HCC) Herpes zoster without complication Herpes zoster without mention of complication [facility]* Diagnosis Muscle soreness- Primary Mylagia and myositis, unspecified [facility] Diagnosis Malignant neoplasm of upper-outer quadrant of right breast in female, estrogen receptor positive (HCC) Breast cancer metastasized to axillary lymph node, right (HCC) Herpes zoster without complication Herpes zoster without mention of complication [facility] Diagnosis Muscle soreness- Primary Mylagia and myositis, unspecified [facility] Diagnosis Malignant neoplasm of upper-outer quadrant of right breast in female, estrogen receptor positive (HCC) Breast cancer metastasized to axillary lymph node, right (HCC) [facility] Diagnosis Muscle soreness- Primary Mylagia and myositis, unspecified [facility] Diagnosis Muscle soreness- Primary Mylagia and myositis, unspecified [facility]* Diagnosis Diverticulitis Diverticulitis of colon (without mention of hemorrhage) [facility] Diagnosis Malignant neoplasm of upper-outer quadrant of right breast in female, estrogen receptor positive (HCC) Breast cancer metastasized to axillary lymph node, right (HCC) [facility] Diagnosis 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) [facility] Diagnosis 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)- Primary Lung nodules Other nonspecific abnormal finding of lung field Stage 3 chronic kidney disease, unspecified whether stage 3a or 3b CKD (HCC) Anemia, unspecified type [facility] Diagnosis Malignant neoplasm of upper-outer quadrant of right breast in female, estrogen receptor positive (HCC) (HCC)- Primary [facility] Diagnosis Malignant neoplasm of upper-outer quadrant of right breast in female, estrogen receptor positive (HCC) (HCC)- Primary Platelets decreased (HCC) Thrombocytopenia, unspecified Other drug-induced neutropenia (HCC) Major depressive disorder, recurrent episode, moderate (HCC) Major depressive disorder, recurrent episode, moderate [facility] Diagnosis Malignant neoplasm of upper-outer quadrant of right breast in female, estrogen receptor positive (HCC) (HCC) Breast cancer metastasized to axillary lymph node, right (HCC) Cytopenia due to immunosupressive agent [facility] Diagnosis Malignant neoplasm of upper-outer quadrant of right breast in female, estrogen receptor positive (HCC)- Primary Other drug-induced neutropenia (HCC) Major depressive disorder, recurrent episode, moderate (HCC) Major depressive disorder, recurrent episode, moderate Breast cancer metastasized to axillary lymph node, right (HCC) Stage 3 chronic kidney disease, unspecified whether stage 3a or 3b CKD (HCC) [facility] Diagnosis Malignant neoplasm of upper-outer quadrant of right breast in female, estrogen receptor positive (HCC)- Primary Breast cancer metastasized to axillary lymph node, right (HCC) Stage 3 chronic kidney disease, unspecified whether stage 3a or 3b CKD (HCC) [facility] Diagnosis Breast cancer metastasized to axillary lymph node, right (HCC) [facility] Diagnosis Breast cancer metastasized to axillary lymph node, right (HCC)- Primary Other drug-induced neutropenia (HCC) Stage 3b chronic kidney disease (HCC) [facility]* Diagnosis Malignant neoplasm of upper-outer quadrant of right breast in female, estrogen receptor positive (HCC) Breast cancer metastasized to axillary lymph node, right (HCC) Herpes zoster without complication Herpes zoster without mention of complication [facility]* Diagnosis Muscle soreness- Primary Mylagia and myositis, unspecified documented in this encounter [facility] note* Diagnosis Breast cancer metastasized to axillary lymph node, right (HCC) Other drug-induced neutropenia (HCC) documented in this encounter [facility] note* Diagnosis Breast cancer metastasized to axillary lymph node, right (HCC) documented in this encounter [facility] note* Diagnosis Breast cancer metastasized to axillary lymph node, right (HCC)- Primary Malignant neoplasm of upper-outer quadrant of right breast in female, estrogen receptor positive (HCC) Muscle aches documented in this encounter [facility] note* Diagnosis Muscle soreness- Primary Mylagia and myositis, unspecified documented in this encounter [facility] Narrative - Reported* Type Description Date Medical History high blood pressure Medical History restless leg syndrome Medical History thyroid disease Medical History osteoarthritis Medical History diabetes mallitus Medical History high cholesterol Surgical History shoulder arthroscopy-right Surgical History knee arthroscopy-right Surgical History appendectomy Surgical History tubal ligation [place] Other History general Narrative - Reported* Type Description Date Medical History high blood pressure Medical History restless leg syndrome Medical History thyroid disease Medical History osteoarthritis Medical History diabetes [place]itus Medical History high cholesterol Surgical History shoulder arthroscopy-right Surgical History knee arthroscopy-right Surgical History appendectomy Surgical History tubal ligation Surgical History right reverse total shoulder ar throplasty 2021 [place] Other Hospital course Narrative No data available for this section [facility] Dis[facility] instructions No data available for this section [facility] No data available for this section [facility] (narrative)* Diagnostic Procedure Only (Routine) - Pending Review Specialty Diagnoses / Procedures Referred By Kaylee t Referred To Contact MOLECULAR & FUNCTIONAL IMAGING Diagnoses Malignant neoplasm of right breast in female, estrogen receptor positive, unspecified site of breast (HCC) Procedures NM BONE WHOLE BODY BONE &/JOINT [place] [address] [place] [address] [facility] [address] [place] [address] Referral ID Status Reason Start Date Expiration Date Visits Requested Visits Authorized [id number] Pending Review Auto-Generat ed Referral 11/12/2021 12/12/2022 1 1 * MRI/CT (Routine) - Pending Review Specialty Diagnoses / Procedures Referred By Kaylee t Referred To Contact CT IMAGING Diagnoses Malignant neoplasm of right breast in female, estrogen receptor positive, unspecified site of breast (HCC) Procedures CT ABD/PEL W IVCON CT ABD & PELVIS [place] [address] [place] [address] Ct Imaging Referral ID Status Reason Start Date Expiration Date Visits Requested Visits Authorized [id number] Pending Review Auto-Generat ed Referral 11/12/2021 12/12/2022 1 1 * Diagnostic Procedure Only (Routine) - Pending Review Specialty Diagnoses / Procedures Referred By Kaylee t Referred To Contact BR IMAGING Diagnoses Malignant neoplasm of right breast in female, estrogen receptor positive, unspecified site of breast (HCC) Breast cancer metastasized to axillary lymph node, right (HCC) Procedures US LOC BREAST RT PERQ BREAST LOC DEVICE PLACEMT 1ST [place] [address] [place] [address] [facility] [address] [place] [address] Referral ID Status Reason Start Date Expiration Date Visits Requested Visits Authorized [id number] Pending Review Auto-Generat ed Referral 11/12/2021 12/12/2022 1 1 * Diagnostic Procedure Only (Routine) - Pending Review Specialty Diagnoses / Procedures Referred By Kaylee russ Referred To Contact BR IMAGING Diagnoses Malignant neoplasm of right breast in female, estrogen receptor positive, unspecified site of breast (HCC) Breast cancer metastasized to axillary lymph node, right (HCC) Procedures US LOC BREAST RT PERQ BREAST LOC DEVICE PLACEMT 1ST [place] [address] [place] [address] [facility] [address] [place] [address] Referral ID Status Reason Start Date Expiration Date Visits Requested Visits Authorized [id number] Pending Review Auto-Generat ed Referral 11/12/2021 12/12/2022 1 1 [facility] for referral (narrative)* Diagnostic Procedure Only (Routine) - Closed Specialty Diagnoses / Procedures Referred By Contac t Referred To Contact BR IMAGING Diagnoses Malignant neoplasm of upper-outer quadrant of right breast in female, estrogen receptor positive (HCC) Procedures US BREAST LTD RT US BREAST UNI REAL TIME WITH IMAGE LIMITED Gera Phillips PA-C [address] [place] [address] [facility] [address] [place] [address] Referral ID Status Reason Start Date Expiration Date V isits Requested Visits Authorized [id number] Closed Auto-Generate d Referral 11/05/2021 12/05/2022 1 1 * Diagnostic Procedure Only (Routine) - Closed Specialty Diagnoses / Procedures Referred By Contac t Referred To Contact BR IMAGING Diagnoses Malignant neoplasm of upper-outer quadrant of right breast in female, estrogen receptor positive (HCC) Procedures RAMOS DIAGNOSTIC RT DIAGNOSTIC MAMMOGRAPHY COMPUTER-AIDED DETCJ UNI Gera Phillips PA-C [address] [place] [address] Br [facility] [address] [place] [address] Referral ID Status Reason Start Date Expiration Date V isits Requested Visits Authorized [id number] Closed Auto-Generate d Referral 11/05/2021 12/05/2022 1 1 [facility] for referral (narrative)* Diagnostic Procedure Only (Routine) - Closed Specialty Diagnoses / Procedures Referred By Contac t Referred To Contact MOLECULAR & FUNCTIONAL IMAGING Diagnoses Malignant neoplasm of right breast in female, estrogen receptor positive, unspecified site of breast (HCC) Procedures NM BONE WHOLE BODY BONE &/JOINT IMAGING [place] [address] [place] [address] Molecular [facility] [address] [place] [address] Referral ID Status Reason Start Date Expiration Date V isits Requested Visits Authorized [id number] Closed Auto-Generate d Referral 11/12/2021 12/12/2022 1 1 [facility] for referral (narrative)* Outpatient Procedure (Routine) - Pending Review Specialty Diagnoses / Procedures Referred By [facility] Referred To Contact [facility] Diagnoses Diverticulitis Procedures COLONOSCOPY DIAGNOSTIC COLONOSCOPY FLX DX W/COLLJ SPEC WHEN PFRMD Jonny Shaw MD [address] [place] [address] [facility] [address] [place] [address] Referral ID Status Reason Start Date Expiration Date Visits Requested Visits Authorized [id number] Pending Review Auto-Generat ed Referral 04/05/2022 03/22/2023 1 1 [facility] for referral (narrative)* Diagnostic Procedure Only (Routine) - Pending Review Specialty Diagnoses / Procedures [facility] Diagnoses Malignant neoplasm of upper-outer quadrant of right breast in female, estrogen receptor positive (HCC) Procedures RAMOS DIAGNOSTIC BILATERAL DIAGNOSTIC MAMMOGRAPHY COMPUTER-AIDED DETCJ Reece Kaur MD [address] [place] [address] [place] [address] Br Imaging [address] [place] [address] Referral ID Status Reason Start Date Expiration Date Visits Requested Visits Authorized [id number] Pending Review Auto-Generat ed Referral 02/01/2023 09/01/2023 1 1 [facility] for referral (narrative)* Outpatient Procedure (Routine) - Closed Specialty Diagnoses / Procedures Referred By Kaylee t Referred To Contact [facility] Diagnoses Diverticulitis Procedures COLONOSCOPY DIAGNOSTIC COLONOSCOPY FLX DX W/COLLJ SPEC WHEN Jonny Mcrae MD [address] [place] [address] [facility] [address] [place] [address] Referral ID Status Reason Start Date Expiration Date V isits Requested Visits Authorized [id number] Closed Auto-Generate d Referral 04/05/2022 03/22/2023 1 1 T [facility] for referral (narrative)* Diagnostic Procedure Only (Routine) - Authorized Specialty Diagnoses / Procedures Referred By Kaylee t Referred To Contact BR IMAGING Diagnoses Malignant neoplasm of upper-outer quadrant of right breast in female, estrogen receptor positive (HCC) (HCC) Procedures RAMOS DIAGNOSTIC BILATERAL DIAGNOSTIC MAMMOGRAPHY COMPUTER-AIDED DETCJ Reece Kaur MD [address] [place] [address] [place] [address] Br [facility] [address] [place] [address] Referral ID Status Reason Start Date Expiration Date Visits Requested Visits Authorized [id number] Authorized Auto-Generat ed Referral 10/10/2023 03/12/2024 1 1 [facility] for visit Narrative* Diagnostic Procedure Only (Routine) - Closed Specialty Diagnoses / Procedures [facility] Referred To Contact MOLECULAR & FUNCTIONAL IMAGING Diagnoses Malignant neoplasm of right breast in female, estrogen receptor positive, unspecified site of breast (HCC) Procedures NM BONE WHOLE BODY BONE &/JOINT [place] [address] [place] [address] [facility] [address] [place] [address] Referral ID Status Reason Start Date Expiration Date V isits Requested Visits Authorized [id number] Closed Auto-Generate d Referral 11/12/2021 12/12/2022 1 1 [facility] for visit Narrative* Diagnostic Procedure Only (Routine) - Closed Specialty Diagnoses / Procedures Referred By Contac t Referred To Contact BR IMAGING Diagnoses Malignant neoplasm of upper-outer quadrant of right breast in female, estrogen receptor positive (HCC) Breast cancer metastasized to axillary lymph node, right (HCC) Procedures RAMOS DIAGNOSTIC BILAT DIAGNOSTIC MAMMOGRAPHY COMPUTER-AIDED DETCJ Gera Kaplan PA-C [address] [place] [address] [facility] [address] [place] [address] Referral ID Status Reason Start Date Expiration Date V isits Requested Visits Authorized [id number] Closed Auto-Generate d Referral 04/01/2022 05/01/2023 1 1 [facility] for visit Narrative* Outpatient Procedure (Routine) - Closed Specialty Diagnoses / Procedures Referred By Contac t Referred To Contact [facility] Diagnoses Diverticulitis Procedures COLONOSCOPY DIAGNOSTIC COLONOSCOPY FLX DX W/COLLJ SPEC WHEN Jonny Mcrae MD [address] [place] [address] [facility] [address] [place] [address] Referral ID Status Reason Start Date Expiration Date V isits Requested Visits Authorized [id number] Closed Auto-Generate d Referral 04/05/2022 03/22/2023 [address] [facility] Chief Complaint and Reason for Visit Chief Complaint Shoulder pain Shoulder pain Chief Complaint N63.12 right breast mass Reason for Visit Breast mass, right Chief Complaint upper arm lymphedema Family History No Family History Records Found Relationship Condition Age at Onset Recorded Date/T elli sister Heart transplant recipient Unknown Malignant neoplasm Unknown Heart disease Unknown sister Hyperlipidemia Unknown Hypertension Unknown father Hypertension Unknown Myocardial infarction Unknown Not Specified Hypertension Unknown Malignant neoplasm of lung Unknown brother Neoplasm of brain Unknown Advance Directives No Advanced Directives Records Found Advance Directive Response Recorded Date/ Time Advance Directives No April 30 10:38am Advance Directive Response Recorded Date/ Time Advance Directives No April 30 9:38am Reason for Referral Specialty Diagnoses / Procedures Referred By Contac t Referred To Contact [facility] Diagnoses Malignant neoplasm of right breast in female, estrogen receptor positive, unspecified site of breast (HCC) At risk for lymphedema Post-operative state Procedures CONSULT TO APPIAN BPM DEVELOPER OCCUPATIONAL THERAPY [facility] [address] [place] [address] [place] [address] [facility] [address] [place] [address] Referral ID Status Reason Start Date Expiration Date Visits Requested Visits Authorized [id number] Authorized PCP Requested Referral Auto-Generate d Referral 04/19/2022 04/19/2023 99 99 Specialty Diagnoses / Procedures Referred By Contac t Referred To Contact Diagnoses Malignant neoplasm of upper-outer quadrant of right breast in female, estrogen receptor positive (HCC) Gera Phillips PA-C [address] [place] [address] Referral ID Status Reason Start Date Expiration Date Visits Re quested Visits Authorized [id number] Closed 1 1 Specialty Diagnoses / Procedures Referred By Contac t Referred To Contact Gastroenterology Diagnoses Diverticulitis Procedures CONSULT TO GASTROENTEROLOGY OFFICE/OUTPATIENT [facility] 60-74 MINUTES Dipti Merritt, MILKING WORKER.SECRETARIAL TEACHER [address] [place] [address] Referral ID Status Reason Start Date Expiration Date Visits Requested Visits Authorized [id number] Authorized PCP Requested Referral 03/15/2022 03/15/2023 1 1 Specialty Diagnoses / Procedures Referred By Contac t Referred To Contact CT IMAGING Diagnoses Lung nodules Procedures CT CHEST W IVCON DIAGNOSTIC COMPUTED TOMOGRAPHY THORAX W/CONTRAST Dipti Merritt, MILKING WORKER.SECRETARIAL TEACHER [address] [place] [address] Ct Imaging Referral ID Status Reason Start Date Expiration Date Visits Requested Visits Authorized [id number] Authorized Auto-Generat ed Referral 03/14/2023 1 1 Specialty Diagnoses / Procedures Referred By Contac t Referred To Contact CT IMAGING Diagnoses Malignant neoplasm of female breast, unspecified estrogen receptor status, unspecified laterality, unspecified site of breast (HCC) Procedures CT ABD/PEL W IVCON CT ABD & PELVIS W/CONTRAST Dipti Merritt, LEANNA.SECRETARIAL TEACHER [address] [place] [address] Ct Imaging Referral ID Status Reason Start Date Expiration Date Visits Requested Visits Authorized [id number] Authorized Auto-Generat ed Referral 2 03/14/2023 1 1 Specialty Diagnoses / Procedures Referred By Contac t Referred To Contact General Surgery Diagnoses Malignant neoplasm of upper-outer quadrant of right breast in female, estrogen receptor positive (HCC) Procedures CONSULT TO GENERAL SURGERY OFFICE/OUTPATIENT [facility] 60-74 MINUTES Narendra Dao MD [address] [place] [address] [place] [address] Referral ID Status Reason Start Date Expiration Date Visits Requested Visits Authorized [id number] Authorized PCP Requested Referral 10/21/2021 10/21/2022 1 1 Specialty Diagnoses / Procedures Referred By Contac t Referred To Contact CT IMAGING Diagnoses Malignant neoplasm of upper-outer quadrant of right breast in female, estrogen receptor positive (HCC) Procedures CT CHEST W IVCON DIAGNOSTIC COMPUTED TOMOGRAPHY THORAX W/CONTRAST Narendra Dao MD [address] [place] [address] [place] [address] Ct Imaging Referral ID Status Reason Start Date Expiration Date Visits Requested Visits Authorized [id number] Authorized Auto-Generat ed Referral 10/28/2021 11/20/2022 1 1 Specialty Diagnoses / Procedures Referred By Contac t Referred To Contact MR IMAGING Diagnoses Malignant neoplasm of upper-outer quadrant of right breast in female, estrogen receptor positive (HCC) Procedures MRI BREAST WO/W IVCON BILAT MRI BREAST WITHOUT&WITH CONTRAST W/CAD BILATERAL Narendra Dao MD [facility] [place] [address] Mr Imaging Referral ID Status Reason Start Date Expiration Date Visits Requested Visits Authorized [id number] Authorized Auto-Generat ed Referral 10/28/2021 11/20/2022 1 1 Summary Purpose Medications Administered Section Inactive Administered Medications - up to 3 most recent administrations Medication Order MAR Action Action Date Dose Rate Site cyclophosphamide 1,055 mg in NaCl 0.9% 327.75 mL (CYTOXAN) 1,055 mg (500 mg/m2 2.11 m2 Treatment Plan BSA from Recorded weight), INTRAVENOUS, Administer over 30 Minutes, ONCE, 1 dose, On Tue12/04/21 at 1000, Approx Total Volume: EXP: 0945 12/05/21 Hazardous Chemotherapy Drug: Use appropriate PPE. New Bag/Syringe/Samara le 12/04/2021 11:50 AM EDT 1,055 mg dexAMETHasone 10 mg/NS 50 mL (PYXIS) 10 mg ivpb (DECADRON) 10 mg, INTRAVENOUS, ONCE, 1 dose, On Tue12/04/21 at 1000, Refrigerate. New Bag/Syringe/Samara le 12/04/2021 10:02 AM EDT 10 mg diphenhydrAMINE 25 mg injection (BENADRYL) 25 mg, INTRAVENOUS, ONCE, 1 dose, On Tue12/04/21 at 1000, Give prior to chemotherapy. Given 12/04/2021 10:01 AM EDT 25 mg DOCEtaxel 158.25 mg in NaCl 0.9% 290.825 mL (TAXOTERE) 158.25 mg (75 mg/m2 2.11 m2 Treatment Plan BSA from Recorded weight), INTRAVENOUS, Administer over 1 Hours, ONCE, 1 dose, On Tue12/04/21 at 1000, ANTINEOPLASTIC IRRITANT NON-PVC container. Infuse via Non-DEHP set. Approx Total Volume: EXP:_0945 12/06/21 Hazardous Chemotherapy Drug: Use appropriate PPE. Antineoplastic Irritant. New Bag/Syringe/Samara le 12/04/2021 10:40 AM EDT 158.25 mg famotidine 20 mg injection (PEPCID) 20 mg, INTRAVENOUS, ONCE, 1 dose, On Tue12/04/21 at 1000, Give prior to chemotherapy. REFRIGERATE Given 12/04/2021 10:01 AM EDT 20 mg palonosetron 0.25 mg injection (ALOXI) 0.25 mg, INTRAVENOUS, ONCE, 1 dose, On Tue12/04/21 at 1000, Flush IV line with NS prior to and following administration. Given 12/04/2021 10:01 AM EDT 0.25 mg pegfilgrastim 6 mg wearable injection (NEULASTA ONPRO) 6 mg, SUBCUTANEOUS, ONCE, 1 dose, On Tue12/04/21 at 1000 Given 12/04/2021 11:33 AM EDT 6 mg Abdomen, RUQ Inactive Administered Medications - up to 3 most recent administrations Medication Order MAR Action Action Date Dose Rate Site NaCl 0.9% 1,000 mL INTRAVENOUS, at 999 mL/hr, Administer over 1 Hours, ONCE, 1 dose, On Tue12/14/21 at 1330 New Bag/Syringe/Bottle 12/14/2021 1:15 PM EDT 999 mL/hr Inactive Administered Medications - up to 3 most recent administrations Medication Order MAR Action Action Date Dose Rate Site cyclophosphamide 1,055 mg in NaCl 0.9% 327.75 mL (CYTOXAN) 1,055 mg (500 mg/m2 2.11 m2 Treatment Plan BSA from Recorded weight), INTRAVENOUS, Administer over 30 Minutes, ONCE, 1 dose, On Tue12/25/21 at 1000, Approx Total Volume: mL EXP: 1000 12/26/21 Hazardous Chemotherapy Drug: Use appropriate PPE. New Bag/Syringe/Samara le 12/25/2021 11:44 AM EDT 1,055 mg dexAMETHasone 10 mg/NS 50 mL (PYXIS) 10 mg ivpb (DECADRON) 10 mg, INTRAVENOUS, ONCE, 1 dose, On Tue12/25/21 at 1000, Refrigerate. New Bag/Syringe/Samara le 12/25/2021 10:16 AM EDT 10 mg diphenhydrAMINE 25 mg injection (BENADRYL) 25 mg, INTRAVENOUS, ONCE, 1 dose, On Tue12/25/21 at 1000, Give prior to chemotherapy. Given 12/25/2021 10:11 AM EDT 25 mg DOCEtaxel 158.25 mg in NaCl 0.9% 290.825 mL (TAXOTERE) 158.25 mg (75 mg/m2 2.11 m2 Treatment Plan BSA from Recorded weight), INTRAVENOUS, Administer over 1 Hours, ONCE, 1 dose, On Tue12/25/21 at 1000, ANTINEOPLASTIC IRRITANT NON-PVC container. Infuse via Non-DEHP set. Approx Total Volume: mL EXP: 1000 12/26/21 Hazardous Chemotherapy Drug: Use appropriate PPE. Antineoplastic Irritant. New Bag/Syringe/Samara le 12/25/2021 10:40 AM EDT 158.25 mg famotidine 20 mg injection (PEPCID) 20 mg, INTRAVENOUS, ONCE, 1 dose, On Tue12/25/21 at 1000, Give prior to chemotherapy. REFRIGERATE Given 12/25/2021 10:13 AM EDT 20 mg palonosetron 0.25 mg injection (ALOXI) 0.25 mg, INTRAVENOUS, ONCE, 1 dose, On Tue12/25/21 at 1000, Flush IV line with NS prior to and following administration. Given 12/25/2021 10:19 AM EDT 0.25 mg pegfilgrastim 6 mg wearable injection (NEULASTA ONPRO) 6 mg, SUBCUTANEOUS, ONCE, 1 dose, On Tue12/25/21 at 1000 Given 12/25/2021 12:08 PM EDT 6 mg Abdomen, LLQ Inactive Administered Medications - up to 3 most recent administrations Medication Order MAR Action Action Date Dose Rate Site cyclophosphamide 1,055 mg in NaCl 0.9% 327.75 mL (CYTOXAN) 1,055 mg (500 mg/m2 2.11 m2 Treatment Plan BSA from Recorded weight), INTRAVENOUS, Administer over 30 Minutes, ONCE, 1 dose, On Tue01/15/22 at 1130, Approx Total Volume: mL EXP:01/16/2022@1140 Hazardous Chemotherapy Drug: Use appropriate PPE. New Bag/Syringe/Samara le 01/15/2022 1:20 PM EST 1,055 mg dexAMETHasone 10 mg/NS 50 mL (PYXIS) 10 mg ivpb (DECADRON) 10 mg, INTRAVENOUS, ONCE, 1 dose, On Tue01/15/22 at 1130, Refrigerate. New Bag/Syringe/Samara le 01/15/2022 11:49 AM EST 10 mg diphenhydrAMINE 25 mg injection (BENADRYL) 25 mg, INTRAVENOUS, ONCE, 1 dose, On Tue01/15/22 at 1130, Give prior to chemotherapy. Given 01/15/2022 11:45 AM EST 25 mg DOCEtaxel 158.25 mg in NaCl 0.9% 290.825 mL (TAXOTERE) 158.25 mg (75 mg/m2 2.11 m2 Treatment Plan BSA from Recorded weight), INTRAVENOUS, Administer over 1 Hours, ONCE, 1 dose, On Tue01/15/22 at 1130, ANTINEOPLASTIC IRRITANT NON-PVC container. Infuse via Non-DEHP set. Approx Total Volume: mL EXP:01/17/2022@1140 Hazardous Chemotherapy Drug: Use appropriate PPE. Antineoplastic Irritant. New Bag/Syringe/Samara le 01/15/2022 12:15 PM EST 158.25 mg famotidine 20 mg injection (PEPCID) 20 mg, INTRAVENOUS, ONCE, 1 dose, On Tue01/15/22 at 1130, Give prior to chemotherapy. REFRIGERATE Given 01/15/2022 11:48 AM EST 20 mg palonosetron 0.25 mg injection (ALOXI) 0.25 mg, INTRAVENOUS, ONCE, 1 dose, On Tue01/15/22 at 1130, Flush IV line with NS prior to and following administration. Given 01/15/2022 11:46 AM EST 0.25 mg pegfilgrastim 6 mg wearable injection (NEULASTA ONPRO) 6 mg, SUBCUTANEOUS, ONCE, 1 dose, On Tue01/15/22 at 1130, Refrigerate Given 01/15/2022 2:00 PM EST 6 mg Abdomen, LLQ Inactive Administered Medications - up to 3 most recent administrations Medication Order MAR Action Action Date Dose Rate Site alteplase 2 mg catheter clearance solution (CATHFLO) 2 mg, INTRALUMINAL, ONCE, 1 dose, On Tue02/05/22 at 0900, Refrigerate - Protect From Light Add 2.2 mL SWFI or NaCl 0.9% to vial. Do Not Shake. Mix gently by swirling until contents are completely dissolved. Final Concentration: 1 mg/mL. Use within 8 hours. Given 02/05/2022 9:00 AM EST 2 mg Inactive Administered Medications - up to 3 most recent administrations Medication Order MAR Action Action Date Dose Rate Site NaCl 0.9% 1,000 mL INTRAVENOUS, at 999 mL/hr, Administer over 1 Hours, ONCE, 1 dose, On Tue02/05/22 at 1030 New Bag/Syringe/Bottle 02/05/2022 10:29 AM EST 999 mL/hr potassium chloride iv piggyback 20 mEq/100 mL 20 mEq, INTRAVENOUS, at 100 mL/hr, Administer over 1 Hours, ONCE, 1 dose, On Tue02/05/22 at 1100, NONCYTOTOXIC VESICANT If ordered with infusion rate range, start with maximum infusion rate and decrease rate if infusion is not tolerated New Bag/Syringe/Bottle 02/05/2022 10:46 AM EST 20 mEq 100 mL/hr Inactive Administered Medications - up to 3 most recent administrations Medication Order MAR Action Action Date Dose Rate Site cyclophosphamide 1,055 mg in NaCl 0.9% 327.75 mL (CYTOXAN) 1,055 mg (500 mg/m2 2.11 m2 Treatment Plan BSA from Recorded weight), INTRAVENOUS, Administer over 30 Minutes, ONCE, 1 dose, On Tue02/12/22 at 0930, Approx Total Volume: mL EXP: 02/13/22 0930 RT Hazardous Chemotherapy Drug: Use appropriate PPE. New Bag/Syringe/Samara le 02/12/2022 11:27 AM EST 1,055 mg dexAMETHasone 10 mg/NS 50 mL (PYXIS) 10 mg ivpb (DECADRON) 10 mg, INTRAVENOUS, ONCE, 1 dose, On Tue02/12/22 at 0930, Refrigerate. New Bag/Syringe/Samara le 02/12/2022 9:50 AM EST 10 mg diphenhydrAMINE 25 mg injection (BENADRYL) 25 mg, INTRAVENOUS, ONCE, 1 dose, On Tue02/12/22 at 0930, Give prior to chemotherapy. Given 02/12/2022 9:47 AM EST 25 mg DOCEtaxel 158.25 mg in NaCl 0.9% 290.825 mL (TAXOTERE) 158.25 mg (75 mg/m2 2.11 m2 Treatment Plan BSA from Recorded weight), INTRAVENOUS, Administer over 1 Hours, ONCE, 1 dose, On Tue02/12/22 at 0930, ANTINEOPLASTIC IRRITANT NON-PVC container. Infuse via Non-DEHP set. Approx Total Volume: mL EXP:02/14/22 0930 RT Hazardous Chemotherapy Drug: Use appropriate PPE. Antineoplastic Irritant. New Bag/Syringe/Samara le 02/12/2022 10:23 AM EST 158.25 mg famotidine 20 mg injection (PEPCID) 20 mg, INTRAVENOUS, ONCE, 1 dose, On Tue02/12/22 at 0930, Give prior to chemotherapy. REFRIGERATE Given 02/12/2022 9:45 AM EST 20 mg palonosetron 0.25 mg injection (ALOXI) 0.25 mg, INTRAVENOUS, ONCE, 1 dose, On Tue02/12/22 at 0930, Flush IV line with NS prior to and following administration. Given 02/12/2022 9:43 AM EST 0.25 mg pegfilgrastim 6 mg wearable injection (NEULASTA ONPRO) 6 mg, SUBCUTANEOUS, ONCE, 1 dose, On Tue02/12/22 at 0930, Refrigerate Given 02/12/2022 11:50 AM EST 6 mg Abdomen, LUQ Additional Source Comments Care Teams (unrecognized sec tion and content) Team Status: Inactive Member Role Status Dates Jonah Carney MD Attending Provider Active NON STAFF Primary Care Provider Active Team Status: Active Member Role Status Dates NON STAFF Primary Care Provider Active Construction Equipment Operator Relationship Specialty Start Date End Date Shaikh West MD [address] [place] [address] PCP - General Primary Care 10/21/21 Construction Equipment Operator Relationship Specialty Start Date End Date Shaikh West MD [address] [place] [address] PCP - General Primary Care 10/21/21 Construction Equipment Operator Relationship Specialty Start Date End Date Shaikh West MD [address] [place] [address] PCP - General Primary Care 10/21/21 Team Status: Inactive Member Role Status Dates Shaikh Yumiko MD Primary Care Provider, Attending Pr fredricker Active Team Status: Active Member Role Status Dates Shaikh Yumiko MD Primary Care Provider Active Construction Equipment Operator Relationship Specialty Start Date End Date Shaikh West MD [address] [place] [address] PCP - General Primary Care 10/21/21 Construction Equipment Operator Relationship Specialty Start Date End Date Shaikh West MD [address] [place] [place] [address] PCP - General Primary Care 10/21/21 Construction Equipment Operator Relationship Specialty Start Date End Date Shaikh West MD [address] [place] [address] PCP - General Primary Care 10/21/21 Construction Equipment Operator Relationship Specialty Start Date End Date Shaikh West MD [address] [place] [address] PCP - General Primary Care 10/21/21 Construction Equipment Operator Relationship Specialty Start Date End Date Shaikh West MD [facility] [place] [address] PCP - General Primary Care 10/21/21 Construction Equipment Operator Relationship Specialty Start Date End Date Shaikh West MD [facility] [place] [place] [address] PCP - General Primary Care 10/21/21 Narendra Dao MD [address] [place] [address] Physician Hematology/Oncology 11/18/21 Miriam Nj, HENRRY [address] [place] [address] Specialty Awning Maker Hematology/Oncology 11/18/21 Dipti Merritt APRN.SECRETARIAL TEACHER [address] [place] [address] Nurse Practitioner Hematology/Oncology 11/18/21 Construction Equipment Operator Relationship Specialty Start Date End Date Shaikh West MD [address] [place] [address] PCP - General Primary Care 10/21/21 Narendra Dao MD [address] [facility] [place] [address] Physician Hematology/Oncology 11/18/21 Miriam Nj, RN [address] [facility] [place] [address] Specialty Awning Maker Hematology/Oncology 11/18/21 Dipti Merritt, MILKING WORKER.SECRETARIAL TEACHER [address] [place] [address] Nurse Practitioner Hematology/Oncology 11/18/21 Construction Equipment Operator Relationship Specialty Start Date End Date Shaikh West MD [address] [place] [address] PCP - General Primary Care 10/21/21 Narendra Dao MD [address] [facility] [place] [address] Physician Hematology/Oncology 11/18/21 Miriam Nj, RN [address] [place] [address] Specialty Awning Maker Hematology/Oncology 11/18/21 Dipti Merritt, MILKING WORKER.SECRETARIAL TEACHER [address] [place] [address] Nurse Practitioner Hematology/Oncology 11/18/21 Construction Equipment Operator Relationship Specialty Start Date End Date Shaikh West MD [address] [place] [address] PCP - General Primary Care 10/21/21 Narendra Dao MD [address] [place] [address] Physician Hematology/Oncology 11/18/21 Miriam Nj, RN [address] [place] [address] Specialty Awning Maker Hematology/Oncology 11/18/21 Dipti Merritt, MILKING WORKER.SECRETARIAL TEACHER [address] [place] [address] Nurse Practitioner Hematology/Oncology 11/18/21 Construction Equipment Operator Relationship Specialty Start Date End Date Shaikh West MD [address] [place] [address] PCP - General Primary Care 10/21/21 Narendra Dao MD [address] [place] [address] Physician Hematology/Oncology 11/18/21 Miriam Nj, HENRRY [address] [place] [address] Specialty Awning Maker Hematology/Oncology 11/18/21 Dipti Merritt, MILKING WORKER.SECRETARIAL TEACHER [address] [place] [address] Nurse Practitioner Hematology/Oncology 11/18/21 Construction Equipment Operator Relationship Specialty Start Date End Date Shaikh West MD [address] [place] [address] PCP - General Primary Care 10/21/21 Narendra Dao MD [address] [place] [address] Physician Hematology/Oncology 11/18/21 Miriam Nj, RN [address] [place] [address] Specialty Awning Maker Hematology/Oncology 11/18/21 Dipti Merritt, MILKING WORKER.SECRETARIAL TEACHER [address] [place] [address] Nurse Practitioner Hematology/Oncology 11/18/21 Shereen Arnett LSW [employer] Press Feeder 11/20/21 Construction Equipment Operator Relationship Specialty Start Date End Date Shaikh West MD [address] [place] [address] PCP - General Primary Care 10/21/21 Narendra Dao MD [address] [place] [address] Physician Hematology/Oncology 11/18/21 Miriam Nj RN [address] [place] [address] Specialty Awning Maker Hematology/Oncology 11/18/21 Dipti Merritt, MILKING WORKER.[facility] [address] [place] [address] Nurse Practitioner Hematology/Oncology 11/18/21 Shereen Arnett LSW [employer] Press Feeder 11/20/21 Construction Equipment Operator Relationship Specialty Start Date End Date Shaikh West MD [address] [place] [address] PCP - General Primary Care 10/21/21 Narendra Dao MD [address] [place] [address] Physician Hematology/Oncology 11/18/21 Miriam Nj, HENRRY [address] [place] [address] Specialty Awning Maker Hematology/Oncology 11/18/21 Dipti Merritt, MILKING WORKER.SECRETARIAL TEACHER [address] [place] [address] Nurse Practitioner Hematology/Oncology 11/18/21 Shereen Arnett, PLASTICS FABRICATOR AND ASSEMBLER [employer] Feeder 11/20/21 Construction Equipment Operator Relationship Specialty Start Date End Date Shaikh West MD [address] [place] [address] PCP - General Primary Care 10/21/21 Narendra Dao MD [address] [place] [address] Physician Hematology/Oncology 11/18/21 Miriam Nj, HENRRY [address] [place] [address] Specialty Awning Maker Hematology/Oncology 11/18/21 Dipti Merritt, MILKING WORKER.SECRETARIAL TEACHER [address] [place] [address] Nurse Practitioner Hematology/Oncology 11/18/21 Shereen Arnett, [facility] [employer] Press Feeder 11/20/21 Construction Equipment Operator Relationship Specialty Start Date End Date Shaikh West MD [address] [place] [address] PCP - General Primary Care 10/21/21 Narendra Dao MD [address] [place] [address] Physician Hematology/Oncology 11/18/21 Miriam Nj, RN [address] [place] [address] Specialty Awning Maker Hematology/Oncology 11/18/21 Dipti Merritt, MILKING WORKER.SECRETARIAL TEACHER [address] [place] [address] Nurse Practitioner Hematology/Oncology 11/18/21 Shereen Arnett LSW [employer] Press Feeder 11/20/21 Construction Equipment Operator Relationship Specialty Start Date End Date Shaikh West MD [address] [place] [address] PCP - General Primary Care 10/21/21 Narendra Dao MD [address] [place] [address] Physician Hematology/Oncology 11/18/21 Miriam Nj, HENRRY [address] [place] [address] Specialty Awning Maker Hematology/Oncology 11/18/21 Dipti Merritt, MILKING WORKER.[facility] [address] [place] [address] Nurse Practitioner Hematology/Oncology 11/18/21 Shereen Arnett LSW [employer] Press Feeder 11/20/21 Construction Equipment Operator Relationship Specialty Start Date End Date Shaikh West MD [address] [place] [address] PCP - General Primary Care 10/21/21 Narendra Dao MD [address] [place] [address] Physician Hematology/Oncology 11/18/21 Miriam Nj, RN [address] [place] [address] Specialty Awning Maker Hematology/Oncology 11/18/21 Dipti Merritt, MILKING WORKER.[facility] [address] [place] [address] Nurse Practitioner Hematology/Oncology 11/18/21 Shereen Arnett, PLASTICS FABRICATOR AND ASSEMBLER [employer] Feeder 11/20/21 Construction Equipment Operator Relationship Specialty Start Date End Date Shaikh West MD [address] [place] [address] PCP - General Primary Care 10/21/21 Narendra Dao MD [address] [place] [address] Physician Hematology/Oncology 11/18/21 Miriam Nj, HENRRY [address] [place] [address] Specialty Awning Maker Hematology/Oncology 11/18/21 Dipti Merritt, MILKING WORKER.SECRETARIAL TEACHER [address] [place] [address] Nurse Practitioner Hematology/Oncology 11/18/21 Shereen Arnett, PLASTICS FABRICATOR AND ASSEMBLER [employer] Feeder 11/20/21 Construction Equipment Operator Relationship Specialty Start Date End Date Shaikh West MD [address] [place] [address] PCP - General Primary Care 10/21/21 Narendra Dao MD [address] [place] [address] Physician Hematology/Oncology 11/18/21 Miriam Nj, RN [address] [place] [address] Specialty Awning Maker Hematology/Oncology 11/18/21 Dipti Merritt, MILKING WORKER.SECRETARIAL TEACHER [address] [place] [address] Nurse Practitioner Hematology/Oncology 11/18/21 Shereen Arnett, PLASTICS FABRICATOR AND ASSEMBLER [employer] Press Feeder 11/20/21 Construction Equipment Operator Relationship Specialty Start Date End Date Shaikh West MD [address] [place] [address] PCP - General Primary Care 10/21/21 Narendra Dao MD [address] [place] [address] Physician Hematology/Oncology 11/18/21 Miriam Nj, HENRRY [address] [place] [address] Specialty Awning Maker Hematology/Oncology 11/18/21 Dipti Merritt, MILKING WORKER.SECRETARIAL TEACHER [address] [place] [address] Nurse Practitioner Hematology/Oncology 11/18/21 Shereen Arnett, DEREK [employer] Press Feeder 11/20/21 Construction Equipment Operator Relationship Specialty Start Date End Date Shaikh West MD [address] [place] [address] PCP - General Primary Care 10/21/21 Narendra Dao MD [address] [place] [address] Physician Hematology/Oncology 11/18/21 Miriam Nj, HENRRY [address] [place] [address] Specialty Awning Maker Hematology/Oncology 11/18/21 Dipti Merritt, MILKING WORKER.SECRETARIAL TEACHER [address] [place] [address] Nurse Practitioner Hematology/Oncology 11/18/21 Shereen Arnett, DEREK [employer] Press Feeder 11/20/21 Construction Equipment Operator Relationship Specialty Start Date End Date Shaikh West MD [address] [place] [address] PCP - General Primary Care 10/21/21 Narendra Dao MD [address] [place] [address] Physician Hematology/Oncology 11/18/21 Miriam Nj, RN [address] [place] [address] Specialty Awning Maker Hematology/Oncology 11/18/21 Dipti Merritt, MILKING WORKER.SECRETARIAL TEACHER [address] [place] [address] Nurse Practitioner Hematology/Oncology 11/18/21 Shereen Arnett LSW [employer] Press Feeder 11/20/21 Construction Equipment Operator Relationship Specialty Start Date End Date Shaikh West MD [address] [place] [address] PCP - General Primary Care 10/21/21 Narendra Dao MD [address] [place] [address] Physician Hematology/Oncology 11/18/21 Miriam Nj, RN [address] [place] [address] Specialty Awning Maker Hematology/Oncology 11/18/21 Dipti Merritt, MILKING WORKER.SECRETARIAL TEACHER [address] [place] [address] Nurse Practitioner Hematology/Oncology 11/18/21 Shereen Arnett LSW [employer] Press Feeder 11/20/21 Construction Equipment Operator Relationship Specialty Start Date End Date Shaikh West MD [address] [place] [address] PCP - General Primary Care 10/21/21 Narendra Dao MD [address] [place] [address] Physician Hematology/Oncology 11/18/21 Miriam Nj, RN [address] [place] [address] Specialty Awning Maker Hematology/Oncology 11/18/21 Dipti Merritt, MILKING WORKER.SECRETARIAL TEACHER [address] [place] [address] Nurse Practitioner Hematology/Oncology 11/18/21 Shereen Arnett LSW [employer] Press Feeder 11/20/21 Construction Equipment Operator Relationship Specialty Start Date End Date Shaikh West MD [address] [place] [address] PCP - General Primary Care 10/21/21 Narendra Dao MD [address] [place] [address] Physician Hematology/Oncology 11/18/21 Miriam Nj, HENRRY [address] [place] [address] Specialty Awning Maker Hematology/Oncology 11/18/21 Dipti Merritt, MILKING WORKER.SECRETARIAL TEACHER [address] [place] [address] Nurse Practitioner Hematology/Oncology 11/18/21 Shereen Arnett LSW [employer] Press Feeder 11/20/21 Construction Equipment Operator Relationship Specialty Start Date End Date Shaikh West MD [address] [place] [address] PCP - General Primary Care 10/21/21 Narendra Dao MD [address] [place] [address] Physician Hematology/Oncology 11/18/21 Miriam Nj, HENRRY [address] [facility] [place] [address] Specialty Awning Maker Hematology/Oncology 11/18/21 Dipti Merritt, MILKING WORKER.SECRETARIAL TEACHER [address] [place] [address] Nurse Practitioner Hematology/Oncology 11/18/21 Shereen Arnett LSW [employer] Press Feeder 11/20/21 Construction Equipment Operator Relationship Specialty Start Date End Date Shaikh West MD [address] [place] [address] PCP - General Primary Care 10/21/21 Narendra Dao MD [address] [facility] [place] [address] Physician Hematology/Oncology 11/18/21 Miriam Nj RN [address] [facility] [place] [address] Specialty Awning Maker Hematology/Oncology 11/18/21 Dipti Merritt, MILKING WORKER.SECRETARIAL TEACHER [address] [place] [address] Nurse Practitioner Hematology/Oncology 11/18/21 Shereen Arnett, DEREK [employer] Press Feeder 11/20/21 Construction Equipment Operator Relationship Specialty Start Date End Date Shaikh West MD [address] [place] [address] PCP - General Primary Care 10/21/21 Narendra Dao MD [address] [facility] [place] [address] Physician Hematology/Oncology 11/18/21 Miriam Nj, HENRRY [address] [place] [address] Specialty Awning Maker Hematology/Oncology 11/18/21 Dipti Merritt, MILKING WORKER.[facility] [address] [place] [address] Nurse Practitioner Hematology/Oncology 11/18/21 Shereen Arnett, PLASTICS FABRICATOR AND ASSEMBLER [employer] Feeder 11/20/21 Construction Equipment Operator Relationship Specialty Start Date End Date Shaikh West MD [address] [place] [address] PCP - General Primary Care 10/21/21 Narendra Dao MD [address] [place] [address] Physician Hematology/Oncology 11/18/21 Miriam Nj RN [address] [place] [address] Specialty Awning Maker Hematology/Oncology 11/18/21 Dipti Merritt, MILKING WORKER.[facility] [address] [place] [address] Nurse Practitioner Hematology/Oncology 11/18/21 Shereen Arnett, DEREK [employer] Feeder 11/20/21 Construction Equipment Operator Relationship Specialty Start Date End Date Shaikh West MD [address] [place] [address] PCP - General Primary Care 10/21/21 Narendra Dao MD [address] [place] [address] Physician Hematology/Oncology 11/18/21 Miriam Nj RN [address] [place] [address] Specialty Awning Maker Hematology/Oncology 11/18/21 Dipti Merritt, MILKING WORKER.SECRETARIAL TEACHER [address] [place] [address] Nurse Practitioner Hematology/Oncology 11/18/21 Shereen Arnett, PLASTICS FABRICATOR AND ASSEMBLER [employer] 11/20/21 Construction Equipment Operator Relationship Specialty Start Date End Date Shaikh West MD [address] [place] [address] PCP - General Primary Care 10/21/21 Narendra Dao MD [address] [place] [address] Physician Hematology/Oncology 11/18/21 Miriam Nj, HENRRY [address] [place] [address] Specialty Awning Maker Hematology/Oncology 11/18/21 Dipti Merritt, MILKING WORKER.SECRETARIAL TEACHER [address] [place] [address] Nurse Practitioner Hematology/Oncology 11/18/21 Shereen Arnett, [facility] [employer] Press Feeder 11/20/21 Construction Equipment Operator Relationship Specialty Start Date End Date Shaikh West MD [address] [place] [address] PCP - General Primary Care 10/21/21 Narendra Dao MD [address] [place] [address] Physician Hematology/Oncology 11/18/21 Miriam Nj, RN [address] [place] [address] Specialty Awning Maker Hematology/Oncology 11/18/21 Dipti Merritt, MILKING WORKER.SECRETARIAL TEACHER [address] [place] [address] Nurse Practitioner Hematology/Oncology 11/18/21 Shereen Arnett LSW [employer] 11/20/21 Construction Equipment Operator Relationship Specialty Start Date End Date Shaikh West MD [address] [place] [address] PCP - General Primary Care 10/21/21 Narendra Dao MD [address] [place] [address] Physician Hematology/Oncology 11/18/21 Miriam Nj, RN [address] [place] [address] Specialty Awning Maker Hematology/Oncology 11/18/21 Dipti Merritt, MILKING WORKER.SECRETARIAL TEACHER [address] [place] [address] Nurse Practitioner Hematology/Oncology 11/18/21 Shereen Arnett LSW [employer] 11/20/21 Construction Equipment Operator Relationship Specialty Start Date End Date Shaikh West MD [address] [place] [address] PCP - General Primary Care 10/21/21 Narendra Dao MD [address] [place] [address] Physician Hematology/Oncology 11/18/21 Miriam Nj, RN [address] [place] [address] Specialty Awning Maker Hematology/Oncology 11/18/21 Dipti Merritt, MILKING WORKER.SECRETARIAL TEACHER [address] [place] [address] Nurse Practitioner Hematology/Oncology 11/18/21 Shereen Arnett LSW [employer] Fe[employer] 11/20/21 Construction Equipment Operator Relationship Specialty Start Date End Date Shaikh West MD [address] [place] [address] PCP - General Primary Care 10/21/21 Narendra Dao MD [address] [facility] [place] [address] Physician Hematology/Oncology 11/18/21 Miriam Nj, RN [address] [facility] [place] [address] Specialty Awning Maker Hematology/Oncology 11/18/21 Dipti Merritt, MILKING WORKER.SECRETARIAL TEACHER [address] [place] [address] Nurse Practitioner Hematology/Oncology 11/18/21 Shereen Arnett LSW [employer] 11/20/21 Construction Equipment Operator Relationship Specialty Start Date End Date Shaikh West MD [address] [place] [address] PCP - General Primary Care 10/21/21 Narendra Dao MD [address] [facility] [place] [address] Physician Hematology/Oncology 11/18/21 Miriam Nj, RN [address] [place] [address] Specialty Awning Maker Hematology/Oncology 11/18/21 Dipti Merritt, MILKING WORKER.SECRETARIAL TEACHER [address] [place] [address] Nurse Practitioner Hematology/Oncology 11/18/21 Shereen Arnett, DEREK [employer] Feeder 11/20/21 Construction Equipment Operator Relationship Specialty Start Date End Date Shaikh West MD [address] [place] [address] PCP - General Primary Care 10/21/21 Narendra Dao MD [address] [place] [address] Physician Hematology/Oncology 11/18/21 Miriam Nj, HENRRY [address] [place] [address] Specialty Awning Maker Hematology/Oncology 11/18/21 Dipti Merritt, MILKING WORKER.SECRETARIAL TEACHER [address] [place] [address] Nurse Practitioner Hematology/Oncology 11/18/21 Shereen Arnett LSW [employer] Fe[employer] 11/20/21 Construction Equipment Operator Relationship Specialty Start Date End Date Shaikh West MD [address] [place] [address] PCP - General Primary Care 10/21/21 Narendra Dao MD [address] [place] [address] Physician Hematology/Oncology 11/18/21 Miriam Nj, HENRRY [address] [place] [address] Specialty Awning Maker Hematology/Oncology 11/18/21 Dipti Merritt, MILKING WORKER.SECRETARIAL TEACHER [address] [place] [address] Nurse Practitioner Hematology/Oncology 11/18/21 Shereen Arnett LSW [employer] Fe[employer] 11/20/21 Construction Equipment Operator Relationship Specialty Start Date End Date Shaikh West MD [address] [place] [address] PCP - General Primary Care 10/21/21 Narendra Dao MD [address] [place] [address] Physician Hematology/Oncology 11/18/21 Miriam Nj, HENRRY [address] [place] [address] Specialty Awning Maker Hematology/Oncology 11/18/21 Dipti Merritt, MILKING WORKER.SECRETARIAL TEACHER [address] [place] [address] Nurse Practitioner Hematology/Oncology 11/18/21 Shereen Arnett LSW [employer] 11/20/21 Team Status: Inactive Member Role Status Dates Shahana Mercedes MD Attending Provider Active Nate Bobby MD Primary Care Provider Active Team Status: Active Member Role Status Dates Nate Bobby MD Primary Care Provider Active Construction Equipment Operator Relationship Specialty Start Date End Date Shaikh West MD [address] [place] [address] PCP - General Primary Care 10/21/21 Narendra Dao MD [address] [place] [address] Physician Hematology/Oncology 11/18/21 Miriam Nj, HENRRY [address] [place] [address] Specialty Awning Maker Hematology/Oncology 11/18/21 Dipti Merritt, MILKING WORKER.SECRETARIAL TEACHER [address] [place] [address] Nurse Practitioner Hematology/Oncology 11/18/21 Shereen Arnett LSW [employer] Fe[employer] 11/20/21 Construction Equipment Operator Relationship Specialty Start Date End Date Shaikh West MD [address] [place] [address] PCP - General Primary Care 10/21/21 Narendra Dao MD [address] [place] [address] Physician Hematology/Oncology 11/18/21 Miriam Nj, RN [address] [place] [address] Specialty Awning Maker Hematology/Oncology 11/18/21 Dipti Merritt, MILKING WORKER.SECRETARIAL TEACHER [address] [place] [address] Nurse Practitioner Hematology/Oncology 11/18/21 Shereen Arnett, DEREK [employer] Feeder 11/20/21 Construction Equipment Operator Relationship Specialty Start Date End Date Shaikh West MD [address] [place] [address] PCP - General Primary Care 10/21/21 Narendra Dao MD [address] [place] [address] Physician Hematology/Oncology 11/18/21 Miriam Nj, RN [address] [place] [address] Specialty Awning Maker Hematology/Oncology 11/18/21 Dipti Merritt, MILKING WORKER.SECRETARIAL TEACHER [address] [place] [address] Nurse Practitioner Hematology/Oncology 11/18/21 Shereen Arnett, DEREK [employer] Feeder 11/20/21 Construction Equipment Operator Relationship Specialty Start Date End Date Shaikh West MD [address] [place] [address] PCP - General Primary Care 10/21/21 Narendra Dao MD [address] [facility] [place] [address] Physician Hematology/Oncology 11/18/21 Miriam Nj, RN [address] [place] [address] Specialty Awning Maker Hematology/Oncology 11/18/21 Dipti Merritt, MILKING WORKER.SECRETARIAL TEACHER [address] [place] [address] Nurse Practitioner Hematology/Oncology 11/18/21 Shereen Arnett LSW [employer] Fe[employer] 11/20/21 Construction Equipment Operator Relationship Specialty Start Date End Date Shaikh West MD [address] [place] [address] PCP - General Primary Care 10/21/21 Narendra Dao MD [address] [facility] [place] [address] Physician Hematology/Oncology 11/18/21 Miriam Nj, RN [address] [place] [address] Specialty Awning Maker Hematology/Oncology 11/18/21 Dipti Merritt, MILKING WORKER.SECRETARIAL TEACHER [address] [place] [address] Nurse Practitioner Hematology/Oncology 11/18/21 Shereen Arnett LSW [employer] Fe[employer] 11/20/21 Construction Equipment Operator Relationship Specialty Start Date End Date Shaikh West MD [address] [place] [address] PCP - General Primary Care 10/21/21 Narendra Dao MD [address] [facility] [place] [address] Physician Hematology/Oncology 11/18/21 Miriam Nj, HENRRY [address] [place] [address] Specialty Awning Maker Hematology/Oncology 11/18/21 Dipti Merritt, MILKING WORKER.[facility] [address] [place] [address] Nurse Practitioner Hematology/Oncology 11/18/21 Shereen Arnett, PLASTICS FABRICATOR AND ASSEMBLER [employer] Feeder 11/20/21 Construction Equipment Operator Relationship Specialty Start Date End Date Shaikh West MD [facility] [place] [address] PCP - General Primary Care 10/21/21 Narendra Dao MD [address] [place] [address] Physician Hematology/Oncology 11/18/21 Miriam Nj RN [address] [place] [address] Specialty Awning Maker Hematology/Oncology 11/18/21 Dipti Merritt, MILKING WORKER.[facility] [address] [place] [address] Nurse Practitioner Hematology/Oncology 11/18/21 Shereen Arnett, PLASTICS FABRICATOR AND ASSEMBLER [employer] Feeder 11/20/21 Construction Equipment Operator Relationship Specialty Start Date End Date Nate Bobby MD [address] [place] [address] PCP - General Family Medicine 05/24/22 Narendra Dao MD [address] [place] [address] Physician Hematology/Oncology 11/18/21 Miriam Nj, RN [address] [place] [address] Specialty Awning Maker Hematology/Oncology 11/18/21 Dipti Merritt, MILKING WORKER.SECRETARIAL TEACHER [address] [place] [address] Nurse Practitioner Hematology/Oncology 11/18/21 Shereen Arentt LSW [employer] Fe[employer] 11/20/21 Construction Equipment Operator Relationship Specialty Start Date End Date Nate Bobby MD [address] [place] [address] PCP - General Family Medicine 05/24/22 Narendra Dao MD [address] [place] [address] Physician Hematology/Oncology 11/18/21 Miriam Nj, HENRRY [address] [place] [address] Specialty Awning Maker Hematology/Oncology 11/18/21 Dipti Merritt, MILKING WORKER.SECRETARIAL TEACHER [address] [place] [address] Nurse Practitioner Hematology/Oncology 11/18/21 Shereen Arnett LSW [employer] Feeder 11/20/21 Construction Equipment Operator Relationship Specialty Start Date End Date Nate Bobby MD [address] [place] [address] PCP - General Family Medicine 05/24/22 Narendra Dao MD [address] [place] [address] Physician Hematology/Oncology 11/18/21 Miriam Nj, RN [address] [place] [address] Specialty Awning Maker Hematology/Oncology 11/18/21 Dipti Merritt, MILKING WORKER.SECRETARIAL TEACHER [address] [place] [address] Nurse Practitioner Hematology/Oncology 11/18/21 Shereen Arnett LSW [employer] Feeder 11/20/21 Construction Equipment Operator Relationship Specialty Start Date End Date Nate Bobby MD [address] [place] [address] PCP - General Family Medicine 05/24/22 Narendra Dao MD [address] [place] [address] Physician Hematology/Oncology 11/18/21 Miriam Nj, RN [address] [place] [address] Specialty Awning Maker Hematology/Oncology 11/18/21 Dipti Merritt, MILKING WORKER.SECRETARIAL TEACHER [address] [place] [address] Nurse Practitioner Hematology/Oncology 11/18/21 Shereen Arnett LSW [employer] Feeder 11/20/21 Construction Equipment Operator Relationship Specialty Start Date End Date Nate Bobby MD [address] [place] [address] PCP - General Family Medicine 05/24/22 Narendra Dao MD [address] [place] [address] Physician Hematology/Oncology 11/18/21 Miriam Nj, RN [address] [place] [address] Specialty Awning Maker Hematology/Oncology 11/18/21 Dipti Merritt, MILKING WORKER.SECRETARIAL TEACHER [address] [place] [address] Nurse Practitioner Hematology/Oncology 11/18/21 Shereen Arnett LSW [employer] Feeder 11/20/21 Construction Equipment Operator Relationship Specialty Start Date End Date Nate Bobby MD [address] [place] [address] PCP - General Family Medicine 05/24/22 Narendra Dao MD [address] [place] [address] Physician Hematology/Oncology 11/18/21 Miriam Nj, HENRRY [address] [place] [address] Specialty Awning Maker Hematology/Oncology 11/18/21 Dipti Merritt, MILKING WORKER.SECRETARIAL TEACHER [address] [place] [address] Nurse Practitioner Hematology/Oncology 11/18/21 Shereen Arnett LSW [employer] Feeder 11/20/21 Construction Equipment Operator Relationship Specialty Start Date End Date Nate Bobby MD [address] [place] [address] PCP - General Family Medicine 05/24/22 Narendra Dao MD [address] [place] [address] Physician Hematology/Oncology 11/18/21 Miriam Nj, HENRRY [address] [place] [address] Specialty Awning Maker Hematology/Oncology 11/18/21 Dipti Merritt, MILKING WORKER.SECRETARIAL TEACHER [address] [place] [address] Nurse Practitioner Hematology/Oncology 11/18/21 Shereen Arnett LSW [employer] Feeder 11/20/21 Construction Equipment Operator Relationship Specialty Start Date End Date Nate Bobby MD [address] [place] [address] PCP - General Family Medicine 05/24/22 Narendra Dao MD [address] [facility] [place] [address] Physician Hematology/Oncology 11/18/21 Miriam Nj, RN [address] [place] [address] Specialty Awning Maker Hematology/Oncology 11/18/21 Dipti Merritt, MILKING WORKER.SECRETARIAL TEACHER [address] [place] [address] Nurse Practitioner Hematology/Oncology 11/18/21 Shereen Arnett LSW [employer] Feeder 11/20/21 Construction Equipment Operator Relationship Specialty Start Date End Date Nate Bobby MD [address] [place] [address] PCP - General Family Medicine 05/24/22 Narendra Dao MD [address] [place] [address] Physician Hematology/Oncology 11/18/21 Miriam Nj, RN [address] [place] [address] Specialty Awning Maker Hematology/Oncology 11/18/21 Dipti Merritt, MILKING WORKER.SECRETARIAL TEACHER [address] [place] [address] Nurse Practitioner Hematology/Oncology 11/18/21 Shereen Arnett LSW [employer] Feeder 11/20/21 Construction Equipment Operator Relationship Specialty Start Date End Date Nate Bobby MD [address] [place] [address] PCP - General Family Medicine 05/24/22 Narendra Dao MD [address] [facility] [place] [address] Physician Hematology/Oncology 11/18/21 Miriam Nj, HENRRY [address] [facility] [place] [address] Specialty Awning Maker Hematology/Oncology 11/18/21 Dipti Merritt, MILKING WORKER.SECRETARIAL TEACHER [address] [place] [address] Nurse Practitioner Hematology/Oncology 11/18/21 Shereen Arnett LSW [employer] Feeder 11/20/21 Construction Equipment Operator Relationship Specialty Start Date End Date Nate Bobby MD [address] [place] [address] PCP - General Family Medicine 05/24/22 Narendra aDo MD [address] [place] [address] Physician Hematology/Oncology 11/18/21 Miriam Nj, HENRRY [address] [facility] [place] [address] Specialty Awning Maker Hematology/Oncology 11/18/21 Dipti Merritt, MILKING WORKER.SECRETARIAL TEACHER [address] [place] [address] Nurse Practitioner Hematology/Oncology 11/18/21 Shereen Arnett LSW [employer] Feeder 11/20/21 Construction Equipment Operator Relationship Specialty Start Date End Date Nate Bobby MD [address] [place] [address] PCP - General Family Medicine 05/24/22 Narendra Dao MD [address] [facility] [place] [address] Physician Hematology/Oncology 11/18/21 Miriam Nj, HENRRY [address] [facility] [place] [address] Specialty Awning Maker Hematology/Oncology 11/18/21 Dipti Merritt, MILKING WORKER.[facility] [address] [place] [address] Nurse Practitioner Hematology/Oncology 11/18/21 Shereen Arnett, PLASTICS FABRICATOR AND ASSEMBLER [employer] 11/20/21 Construction Equipment Operator Relationship Specialty Start Date End Date Nate Bobby MD PCP - General Family Medicine 05/24/22 Narendra Dao MD [address] [facility] [place] [address] Physician Hematology/Oncology 11/18/21 Miriam Nj, RN [address] [place] [address] Specialty Awning Maker Hematology/Oncology 11/18/21 Dipti Merritt, MILKING WORKER.SECRETARIAL TEACHER [address] [place] [address] Nurse Practitioner Hematology/Oncology 11/18/21 Shereen Arnett, PLASTICS FABRICATOR AND ASSEMBLER [employer] 11/20/21 Construction Equipment Operator Relationship Specialty Start Date End Date Nate Bobyb MD PCP - General Family Medicine 05/24/22 Narendra Dao MD [address] [facility] [place] [address] Physician Hematology/Oncology 11/18/21 Miriam Nj, RN [address] [place] [address] Specialty Awning Maker Hematology/Oncology 11/18/21 Dipti Merritt, MILKING WORKER.SECRETARIAL TEACHER [address] [place] [address] Nurse Practitioner Hematology/Oncology 11/18/21 Shereen Arnett LSW [employer] 11/20/21 Construction Equipment Operator Relationship Specialty Start Date End Date Nate Bobby MD PCP - General Family Medicine 05/24/22 Narendra Dao MD [address] [facility] [place] [address] Physician Hematology/Oncology 11/18/21 Miriam Nj, RN [address] [facility] [address] [place], [place] [address] Specialty Awning Maker Hematology/Oncology 11/18/21 Dipti Merritt, MILKING WORKER.SECRETARIAL TEACHER [address] [facility] [address] [place], [place] [address] Nurse Practitioner Hematology/Oncology 11/18/21 Shereen Arnett LSW [employer] Feeder 11/20/21 Construction Equipment Operator Relationship Specialty Start Date End Date Nate Bobby MD PCP - General Family Medicine 05/24/22 Narendra Dao MD [address] [facility] [address] [place], [place] [address] Physician Hematology/Oncology 11/18/21 Miriam Nj, RN [address] [facility] [address] [place], [place] [address] Specialty Awning Maker Hematology/Oncology 11/18/21 Dipti Merritt, MILKING WORKER.SECRETARIAL TEACHER [address] [facility] [address] [place], [place] [address] Nurse Practitioner Hematology/Oncology 11/18/21 Shereen Arnett LSW [employer] Fe[employer] 11/20/21 Construction Equipment Operator Relationship Specialty Start Date End Date Nate Bobby MD PCP - General Family Medicine 05/24/22 Narendra Dao MD [address] [place] [address] Physician Hematology/Oncology 11/18/21 Miriam Nj, RN [address] [place] [address] Specialty Awning Maker Hematology/Oncology 11/18/21 Dipti Merritt, MILKING WORKER.SECRETARIAL TEACHER [address] [place] [address] Nurse Practitioner Hematology/Oncology 11/18/21 Shereen Arnett LSW [employer] Fe[employer] 11/20/21 Construction Equipment Operator Relationship Specialty Start Date End Date Nate Bobby MD PCP - General Family Medicine 05/24/22 Narendra Dao MD [address] [place] [address] Physician Hematology/Oncology 11/18/21 Miriam Nj, HENRRY [address] [place], [place] [address] Specialty Awning Maker Hematology/Oncology 11/18/21 Dipti Merritt, MILKING WORKER.SECRETARIAL TEACHER [address] [facility] [place] [address] Nurse Practitioner Hematology/Oncology 11/18/21 Shereen Arnett LSW [employer] 11/20/21 Construction Equipment Operator Relationship Specialty Start Date End Date Nate Bobby MD PCP - General Family Medicine 05/24/22 Narendra Dao MD [address] [place] [address] Physician Hematology/Oncology 11/18/21 Miriam Nj, RN [address] [place], [place] [address] Specialty Awning Maker Hematology/Oncology 11/18/21 Dipti Merritt, MILKING WORKER.SECRETARIAL TEACHER [address] [place], [place] [address] Nurse Practitioner Hematology/Oncology 11/18/21 Shereen Arnett, PLASTICS FABRICATOR AND ASSEMBLER [employer] 11/20/21 Construction Equipment Operator Relationship Specialty Start Date End Date Nate Bobby MD PCP - General Family Medicine 05/24/22 Narendra Dao MD [address] [facility] [place] [address] Physician Hematology/Oncology 11/18/21 Miriam Nj, RN [address] [place] [address] Specialty Awning Maker Hematology/Oncology 11/18/21 Dipti Merritt, MILKING WORKER.SECRETARIAL TEACHER [address] [place] [address] Nurse Practitioner Hematology/Oncology 11/18/21 Shereen Arnett, PLASTICS FABRICATOR AND ASSEMBLER [employer] Feeder 11/20/21 Construction Equipment Operator Relationship Specialty Start Date End Date Nate Bobby MD PCP - General Family Medicine 05/24/22 Narendra Dao MD [address] [facility] [place] [address] Physician Hematology/Oncology 11/18/21 Miriam Nj, RN [address] [place], [place] [id number] Specialty Awning Maker Hematology/Oncology 11/18/21 Dipti Merritt, MILKING WORKER.SECRETARIAL TEACHER [address] [place] [address] Nurse Practitioner Hematology/Oncology 11/18/21 Shereen Arnett LSW [employer] 11/20/21 Construction Equipment Operator Relationship Specialty Start Date End Date Nate Bobby MD PCP - General Family Medicine 05/24/22 Narendra Dao MD [address] [place] [address] Physician Hematology/Oncology 11/18/21 Miriam Nj, HENRRY [address] [place] [address] Specialty Awning Maker Hematology/Oncology 11/18/21 Dipti Merritt, MILKING WORKER.SECRETARIAL TEACHER [address] [place] [address] Nurse Practitioner Hematology/Oncology 11/18/21 Shereen Arnett LSW [employer] 11/20/21 Construction Equipment Operator Relationship Specialty Start Date End Date Nate Bobby MD PCP - General Family Medicine 05/24/22 Narendra Dao MD [address] [place] [address] [place] [address] Physician Hematology/Oncology 11/18/21 Miriam Nj, HENRRY [address] [place] [address] Specialty Awning Maker Hematology/Oncology 11/18/21 Dipti Merritt, MILKING WORKER.SECRETARIAL TEACHER [address] [place] [address] [place] [address] Nurse Practitioner Hematology/Oncology 11/18/21 Shereen Arnett LSW [employer] 11/20/21 Construction Equipment Operator Relationship Specialty Start Date End Date Nate Bobby MD PCP - General Family Medicine 05/24/22 Narendra Dao MD [address] [facility] [place] [address] Physician Hematology/Oncology 11/18/21 Miriam Nj, HENRRY [address] [facility] [place] [address] Specialty Awning Maker Hematology/Oncology 11/18/21 Dipti Merritt, MILKING WORKER.SECRETARIAL TEACHER [address] [facility] [place] [address] Nurse Practitioner Hematology/Oncology 11/18/21 Shereen Arnett LSW [employer] 11/20/21 Construction Equipment Operator Relationship Specialty Start Date End Date Nate Bobby MD PCP - General Family Medicine 05/24/22 Narendra Dao MD [address] [facility] [place] [address] Physician Hematology/Oncology 11/18/21 Miriam Nj, HENRRY [address] [facility] [place] [address] Specialty Awning Maker Hematology/Oncology 11/18/21 Dipti Merritt, MILKING WORKER.SECRETARIAL TEACHER [address] [facility] [place] [address] Nurse Practitioner Hematology/Oncology 11/18/21 Shereen Arnett, DEREK [employer]eder 11/20/21 Construction Equipment Operator Relationship Specialty Start Date End Date Nate Bobby MD PCP - General Family Medicine 05/24/22 Narendra Dao MD [address] [facility] [place] [address] Physician Hematology/Oncology 11/18/21 Miriam Nj, RN [address] [facility] [place] [address] Specialty Awning Maker Hematology/Oncology 11/18/21 Dipti Merritt, MILKING WORKER.SECRETARIAL TEACHER [address] [facility] [place] [address] Nurse Practitioner Hematology/Oncology 11/18/21 Shereen Arnett LSW [employer] Feeder 11/20/21 Construction Equipment Operator Relationship Specialty Start Date End Date Nate Bobby MD PCP - General Family Medicine 05/24/22 Narendra Dao MD [address] [facility] [place] [address] Physician Hematology/Oncology 11/18/21 Miriam Nj, RN [address] [facility] [place] [address] Specialty Awning Maker Hematology/Oncology 11/18/21 Dipti Merritt, MILKING WORKER.SECRETARIAL TEACHER [address] [facility] [place] [address] Nurse Practitioner Hematology/Oncology 11/18/21 Shereen Arnett LSW [employer] Press Feeder 11/20/21 Construction Equipment Operator Relationship Specialty Start Date End Date Nate Bobby MD PCP - General Family Medicine 05/24/22 Narendra Dao MD [address] [facility] [place] [address] Physician Hematology/Oncology 11/18/21 Miriam Nj, HENRRY [address] [place] [address] Specialty Awning Maker Hematology/Oncology 11/18/21 Dipti Merritt, MILKING WORKER.SECRETARIAL TEACHER [address] [place] [address] Nurse Practitioner Hematology/Oncology 11/18/21 Shereen Arnett LSW [employer] Fe[employer] 11/20/21 Construction Equipment Operator Relationship Specialty Start Date End Date Nate Bobby MD PCP - General Family Medicine 05/24/22 Narendra Dao MD [address] [place] [address] Physician Hematology/Oncology 11/18/21 Miriam Nj RN [address] [place] [address] Specialty Awning Maker Hematology/Oncology 11/18/21 Dipti Merritt, MILKING WORKER.SECRETARIAL TEACHER [address] [place] [address] Nurse Practitioner Hematology/Oncology 11/18/21 Shereen Arnett LSW [employer] Press Feeder 11/20/21 Construction Equipment Operator Relationship Specialty Start Date End Date Nate Bobby MD PCP - General Family Medicine 05/24/22 Narendra Dao MD [address] [place] [address] Physician Hematology/Oncology 11/18/21 Miriam Nj, HENRRY [address] [place] [address] Specialty Awning Maker Hematology/Oncology 11/18/21 Dipti Merritt, MILKING WORKER.SECRETARIAL TEACHER [address] [place] [address] Nurse Practitioner Hematology/Oncology 11/18/21 Shereen Arnett, PLASTICS FABRICATOR AND ASSEMBLER [employer] Feeder 11/20/21 Construction Equipment Operator Relationship Specialty Start Date End Date Nate Bobby MD PCP - General Family Medicine 05/24/22 Narendra Dao MD [address] [facility] [place] [address] Physician Hematology/Oncology 11/18/21 Miriam Nj RN [address] [facility] [place] [address] Specialty Awning Maker Hematology/Oncology 11/18/21 Dipti Merritt, MILKING WORKER.SECRETARIAL TEACHER [address] [facility] [place] [address] Nurse Practitioner Hematology/Oncology 11/18/21 Shereen Arnett, PLASTICS FABRICATOR AND ASSEMBLER [employer] Press Feeder 11/20/21 Construction Equipment Operator Relationship Specialty Start Date End Date Nate Bobby MD PCP - General Family Medicine 05/24/22 Narendra Dao MD [address] [facility] [place] [address] Physician Hematology/Oncology 11/18/21 Miriam Nj RN [address] [facility] [place] [address] Specialty Awning Maker Hematology/Oncology 11/18/21 Dipti Merritt, LEANNA.SECRETARIAL TEACHER [address] [facility] [place] [address] Nurse Practitioner Hematology/Oncology 11/18/21 Shereen Arnett LSW [employer] Press Feeder 11/20/21 Construction Equipment Operator Relationship Specialty Start Date End Date Nate Bobby MD PCP - General Family Medicine 05/24/22 Narendra Dao MD [address] [facility] [place] [address] Physician Hematology/Oncology 11/18/21 Miriam Nj, HENRRY [address] [facility] [place] [address] Specialty Awning Maker Hematology/Oncology 11/18/21 Dipti Merritt, MILKING WORKER.SECRETARIAL TEACHER [address] [facility] [place] [address] Nurse Practitioner Hematology/Oncology 11/18/21 Shereen Arnett LSW [employer] Press Feeder 11/20/21 Construction Equipment Operator Relationship Specialty Start Date End Date Nate Bobby MD PCP - General Family Medicine 05/24/22 Narendra Dao MD [address] [place] [address] Physician Hematology/Oncology 11/18/21 Miriam Nj, HENRRY [address] [place] [address] Specialty Awning Maker Hematology/Oncology 11/18/21 Dipti Merritt, MILKING WORKER.SECRETARIAL TEACHER [address] [place] [address] Nurse Practitioner Hematology/Oncology 11/18/21 Shereen Arnett, PLASTICS FABRICATOR AND ASSEMBLER [employer] Feeder 11/20/21 Construction Equipment Operator Relationship Specialty Start Date End Date Nate Bobby MD PCP - General Family Medicine 05/24/22 Narendra Dao MD [address] [place] [address] Physician Hematology/Oncology 11/18/21 Miriam Nj, HENRRY [address] [facility] [place] [address] Specialty Awning Maker Hematology/Oncology 11/18/21 Dipti Merritt, MILKING WORKER.SECRETARIAL TEACHER [address] [place] [address] Nurse Practitioner Hematology/Oncology 11/18/21 Shereen Arnett, PLASTICS FABRICATOR AND ASSEMBLER [employer] Press Feeder 11/20/21 Construction Equipment Operator Relationship Specialty Start Date End Date Nate Bobby MD PCP - General Family Medicine 05/24/22 Narendra Dao MD [address] [place] [address] Physician Hematology/Oncology 11/18/21 Miriam Nj, RN [address] [place] [address] Specialty Awning Maker Hematology/Oncology 11/18/21 Dipti Merritt, MILKING WORKER.SECRETARIAL TEACHER [address] [facility] [place] [address] Nurse Practitioner Hematology/Oncology 11/18/21 Shereen Arnett LSW [employer] Press Feeder 11/20/21 Construction Equipment Operator Relationship Specialty Start Date End Date Nate Bobby MD PCP - General Family Medicine 05/24/22 Narendra Dao MD [address] [facility] [place] [address] Physician Hematology/Oncology 11/18/21 Miriam Nj, HENRRY [address] [facility] [place] [address] Specialty Awning Maker Hematology/Oncology 11/18/21 Dipti Merritt, MILKING WORKER.SECRETARIAL TEACHER [address] [facility] [place] [address] Nurse Practitioner Hematology/Oncology 11/18/21 Shereen Arnett LSW [employer] Press Feeder 11/20/21 Construction Equipment Operator Relationship Specialty Start Date End Date Nate Bobby MD PCP - General Family Medicine 05/24/22 Narendra Dao MD [address] [facility] [place] [address] Physician Hematology/Oncology 11/18/21 Miriam Nj, HENRRY [address] [facility] [place] [address] Specialty Awning Maker Hematology/Oncology 11/18/21 Dipti Merritt, MILKING WORKER.SECRETARIAL TEACHER [address] [facility] [place] [address] Nurse Practitioner Hematology/Oncology 11/18/21 Shereen Arnett LSW [employer] Feeder 11/20/21 Construction Equipment Operator Relationship Specialty Start Date End Date Nate Bobby MD PCP - General Family Medicine 05/24/22 Narendra Dao MD [address] [place] [address] Physician Hematology/Oncology 11/18/21 Miriam Nj, HENRRY [address] [place] [address] Specialty Awning Maker Hematology/Oncology 11/18/21 Dipti Merritt, MILKING WORKER.SECRETARIAL TEACHER [address] [place] [address] Nurse Practitioner Hematology/Oncology 11/18/21 Shereen Arnett LSW [employer] Press Feeder 11/20/21 Construction Equipment Operator Relationship Specialty Start Date End Date Nate Bobby MD PCP - General Family Medicine 05/24/22 Narendra Dao MD [address] [facility] [place] [address] Physician Hematology/Oncology 11/18/21 Miriam Nj, HENRRY [address] [place] [address] Specialty Awning Maker Hematology/Oncology 11/18/21 Dipti Merritt, MILKING WORKER.SECRETARIAL TEACHER [address] [place] [address] Nurse Practitioner Hematology/Oncology 11/18/21 Melquiades, Shereen, PLASTICS FABRICATOR AND ASSEMBLER [employer] Feeder 11/20/21 Construction Equipment Operator Relationship Specialty Start Date End Date Nate Bobby MD PCP - General Family Medicine 05/24/22 Narendra Dao MD [address] [facility] [place] [address] Physician Hematology/Oncology 11/18/21 Miriam Nj, HENRRY [address] [facility] [place] [address] Specialty Awning Maker Hematology/Oncology 11/18/21 Dipti Merritt, LEANNA.SECRETARIAL TEACHER [address] [facility] [place] [address] Nurse Practitioner Hematology/Oncology 11/18/21 Shereen Arnett [facility] Broom[employer] Press Feeder 11/20/21 Construction Equipment Operator Relationship Specialty Start Date End Date Nate Bobby MD PCP - General Family Medicine 05/24/22 Narendra Dao MD [address] [facility] [place] [address] Physician Hematology/Oncology 11/18/21 Miriam Nj, HENRRY [address] [facility] [place] [address] Specialty Awning Maker Hematology/Oncology 11/18/21 Dipti Merritt, MILKING WORKER.SECRETARIAL TEACHER [address] [facility] [place] [address] Nurse Practitioner Hematology/Oncology 11/18/21 Shereen Arnett, [facility] [employer] Press Feeder 11/20/21 Construction Equipment Operator Relationship Specialty Start Date End Date Nate Bobby MD PCP - General Family Medicine 05/24/22 Narendra Dao MD [address] [facility] [place] [address] Physician Hematology/Oncology 11/18/21 Miriam Nj, HENRRY [address] [place] [address] Specialty Awning Maker Hematology/Oncology 11/18/21 Dipti Merritt, MILKING WORKER.SECRETARIAL TEACHER [address] [place] [address] Nurse Practitioner Hematology/Oncology 11/18/21 Shereen Arnett LSW [employer] Press Feeder 11/20/21 Construction Equipment Operator Relationship Specialty Start Date End Date Nate Bobby MD PCP - General Family Medicine 05/24/22 Narendra Dao MD [address] [place] [address] Physician Hematology/Oncology 11/18/21 Miriam Nj, HENRRY [address] [facility] [place] [address] Specialty Awning Maker Hematology/Oncology 11/18/21 Dipti Merritt, MILKING WORKER.SECRETARIAL TEACHER [address] [place] [address] Nurse Practitioner Hematology/Oncology 11/18/21 Shereen Arnett LSW [employer] Feeder 11/20/21 Construction Equipment Operator Relationship Specialty Start Date End Date Nate Bobby MD PCP - General Family Medicine 05/24/22 Narendra Dao MD [address] [place] [address] Physician Hematology/Oncology 11/18/21 Miriam Nj, HENRRY [address] [place] [address] Specialty Awning Maker Hematology/Oncology 11/18/21 Dipti Merritt APRN.SECRETARIAL TEACHER [address] [place] [address] Nurse Practitioner Hematology/Oncology 11/18/21 Shereen Arnett LSW [employer] Press Feeder 11/20/21 Goals (unrecognized section and content) Goals may be documented in a n alternate sectionNo InformationNo InformationNo InformationNo InformationNo InformationNo InformationNo InformationNo InformationNo InformationNo InformationNo InformationNo InformationGoals may be documented in an alternate sectionGoals may be documented in an alternate sectionGoals may be documented in an alternate section No data available for this section No data available for this section REASON FOR VISIT (unrecogniz ed section and content) Reason Comments OT Progress Note Specialty Diagnoses / Procedures Referred By aKylee t Referred To Contact [facility] Diagnoses Malignant neoplasm of right breast in female, estrogen receptor positive, unspecified site of breast (HCC) At risk for lymphedema Post-operative state Procedures CONSULT TO APPIAN BPM DEVELOPER OCCUPATIONAL THERAPY EVAL HIGH COMPLEX [address] [place] [address] [place] [address] [facility] [address] [place] [id number] Referral ID Status Reason Start Date Expiration Date Visits Requested Visits Authorized [id number] Authorized PCP Requested Referral Auto-Generate d Referral 04/19/2022 04/19/2023 99 99 Reason Comments Port Insertion Reason Comments Breast Cancer New patient consult Reason Comments Patient Question Reason Comments Nutrition Assessment Reason Comments Radio Imaging Study Comments Reason Comments Opened In Error Specialty Diagnoses / Procedures Referred By Contac t Referred To Contact MR IMAGING Diagnoses Malignant neoplasm of upper-outer quadrant of right breast in female, estrogen receptor positive (HCC) Procedures MRI BREAST WO/W IVCON BILAT MRI BREAST WITHOUT&WITH CONTRAST W/CAD BILATERAL Narendra Dao MD [address] [place] [address] [place] [address] Mr Imaging Referral ID Status Reason Start Date Expiration Date V isits Requested Visits Authorized [id number] Closed Auto-Generate d Referral 10/28/2021 11/20/2022 1 1 Reason Comments Appointment Reason Comments Breast Cancer Reason Comments Breast Problem Reason Comments Radiology Mammogram Specialty Diagnoses / Procedures Referred By [facility] Referred To Contact [facility] Diagnoses Malignant neoplasm of upper-outer quadrant of right breast in female, estrogen receptor positive (HCC) Procedures [facility]OS DIAGNOSTIC RT DIAGNOSTIC MAMMOGRAPHY COMPUTER-AIDED DETCJ Gera Quintero PA-C [address] [place] [address] [facility] [address] [place] [address] Referral ID Status Reason Start Date Expiration Date V isits Requested Visits Authorized [id number] Closed Auto-Generate d Referral 11/05/2021 12/05/2022 1 1 Reason Comments Consult Reason Comments Orders Reason Comments Nutrition Counseling Reason Comments Care Coordination Antiemetics Reason Comments Breast Cancer Follow up Reason Comments First Time Treatment Education Docetaxel & Cyclophosphamide Reason Comments Care Coordination Vaccine Question Reason Comments Care Coordination Treatment Questions Reason Comments Breast Cancer Reason Comments Benefits Investigation Specialty Diagnoses / Procedures Referred By [facility] Referred To Contact Diagnoses Malignant neoplasm of upper-outer quadrant of right breast in female, estrogen receptor positive (HCC) Narendra Dao MD [address] [place] [address] [place] [address] [facility] [address] [place] [address] Referral ID Status Reason Start Date Expiration Date V isits Requested Visits Authorized [id number] Authorized 11/18/2021 02/16/2022 99 99 Reason Comments Care Coordination C1D1 Post Treatment Call Reason Comments Results Reason Comments Breast Cancer 1 week follow up Reason Comments Care Coordination Skin Changes; New pa in Reason Comments Breast Cancer OTV 3 weeks Reason Comments follow up Reason Comments Newly Diagnosed Awning Maker - Other Reason Comments Breast Cancer OTV 1 week Reason Comments Orders CT Reason Comments Care Coordination Cold Symptoms Reason Comments Care Coordination Covid Question Reason Comments Awning Maker - Other Reason Comments Care Coordination CT Results Reason Comments Arm Measurements Reason Comments Care Coordination Referral; Appointmen t Question Reason Onset Date Comments Awning Maker - Other 03/17/2022 Reason Comments Surgical Follow Up Reason Comments New Patient Diverticulitis Specialty Diagnoses / Procedures Referred By Contac t Referred To Contact Gastroenterology Diagnoses Diverticulitis Procedures CONSULT TO GASTROENTEROLOGY OFFICE/OUTPATIENT NEW HIGH MDM 60-74 MINUTES Dipti Merritt, MILKING WORKER.SECRETARIAL TEACHER [address] [place] [address] [place] [address] Referral ID Status Reason Start Date Expiration Date V isits Requested Visits Authorized [id number] Closed PCP Requested Referral 03/15/2022 03/15/2023 1 1 Reason Comments Pre-Op Education Reason Comments Post Op Reason Comments Care Coordination Drain Problem Reason Comments Breast Cancer Reason Comments Post Op Reason Comments Orders Reason Comments Care Coordination Therapy Reason Comments Care Coordination Surgical Site Concer ns Reason Comments Patient Update Reason Comments OT EVAL Specialty Diagnoses / Procedures Referred By Contac t Referred To Contact [facility] Diagnoses Malignant neoplasm of upper-outer quadrant of right breast in female, estrogen receptor positive (HCC) Breast cancer metastasized to axillary lymph node, right (HCC) At risk for lymphedema Procedures CONSULT TO BREAST REHAB PROGRAM THERAPEUTIC EXERCISES RE, EA 15 MIN. THERAPEUT ACTVITY DIRECT PT CONTACT EACH 15 MIN Gera Phillips PA-C [address] [place] [address] [facility] [address] [place] [address] Referral ID Status Reason Start Date Expiration Date Visits Requested Visits Authorized [id number] Authorized PCP Requested Referral Auto-Generate d Referral 04/30/2022 04/30/2023 99 99 Reason Onset Date Comments Simulation Request Form 05/10/2022 Reason Comments Occupational Therapy Reason Comments Care Coordination Treatment Planning Reason Comments Care Coordination Medication Questions Reason Comments Awning Maker - Other Medication Star t Date - Anastrozole Reason Comments Oral Anti-cancer Agent Education Anastro zole Reason Comments Established Patient RT axillary wound ch filemon; Reason Comments Established Patient Reason Comments Patient Question/Referral Specialty Diagnoses / Procedures Referred By Contac t Referred To Contact Hematology / HEMATOLOGY/ONCOLOGY Diagnoses port flush Procedures PORT FLUSH Nate Bobby MD [address] [place] [address] [address] [place] [address] Referral ID Status Reason Start Date Expiration Date V isits Requested Visits Authorized [id number] Authorized 06/25/2022 02/27/2023 99 99 Reason Comments Musculoskeletal Problem Reason Comments Radiotherapy On-treatment Visit Reason Comments Social Work Services Reason Comments Breast Cancer OTV Reason Onset Date Comments Refill Request 08/12/2022 Opened In Error 08/12/2022 Reason Comments Nurse Triage Call Post Radiation Nurse Call Specialty Diagnoses / Procedures Referred By Contac t Referred To Contact Hematology / HEMATOLOGY/ONCOLOGY Diagnoses port flush Procedures PORT FLUSH Nate Bobby MD [address] [place] [address] [address] [place] [address] Reason Comments Patient Update Nurse Call post radi ation Reason Onset Date Comments Refill Request 09/22/2022 Reason Comments Care Coordination Rash Reason Comments Breast Cancer Follow up to phone e ncounter Reason Comments Care Coordination Pt Question Reason Comments Refill Request Reason Comments Social Work Services Mileage log for Nov faxed to Cancer Services at [phone]. Reason Comments Care Coordination Diarrhea, Nausea, & Breast Changes Reason Comments Med Change Request Reason Comments Breast Cancer Follow up/port draw Reason Comments Care Coordination Medication Question Reason Comments Care Coordination Hair Loss & Bone Roman n Reason Comments Care Coordination B12 Question Reason Comments Breast Cancer 3 week follow up Source Comments (unrecognize d section and content) In the event this informatio n is protected by the Federal Confidentiality of Alcohol and Drug Abuse Patient Records regulations: The Federal rules restrict any use of the information to criminally investigate or prosecute any alcohol or drug abuse patient.[facility] CenterIn the event this information is protected by the Federal Confidentiality of Alcohol and Drug Abuse Patient Records regulations: The Federal rules restrict any use of the information to criminally investigate or prosecute any alcohol or drug abuse patient.[facility] CenterIn the event this information is protected by the Federal Confidentiality of Alcohol and Drug Abuse Patient Records regulations: The Federal rules restrict any use of the information to criminally investigate or prosecute any alcohol or drug abuse patient.[facility] CenterIn the event this information is protected by the Federal Confidentiality of Alcohol and Drug Abuse Patient Records regulations: The Federal rules restrict any use of the information to criminally investigate or prosecute any alcohol or drug abuse patient.[facility] CenterIn the event this information is protected by the Federal Confidentiality of Alcohol and Drug Abuse Patient Records regulations: The Federal rules restrict any use of the information to criminally investigate or prosecute any alcohol or drug abuse patient.[facility] CenterIn the event this information is protected by the Federal Confidentiality of Alcohol and Drug Abuse Patient Records regulations: The Federal rules restrict any use of the information to criminally investigate or prosecute any alcohol or drug abuse patient.[facility] CenterIn the event this information is protected by the Federal Confidentiality of Alcohol and Drug Abuse Patient Records regulations: The Federal rules restrict any use of the information to criminally investigate or prosecute any alcohol or drug abuse patient.[facility] CenterIn the event this information is protected by the Federal Confidentiality of Alcohol and Drug Abuse Patient Records regulations: The Federal rules restrict any use of the information to criminally investigate or prosecute any alcohol or drug abuse patient.[facility] CenterIn the event this information is protected by the Federal Confidentiality of Alcohol and Drug Abuse Patient Records regulations: The Federal rules restrict any use of the information to criminally investigate or prosecute any alcohol or drug abuse patient.[facility] CenterIn the event this information is protected by the Federal Confidentiality of Alcohol and Drug Abuse Patient Records regulations: The Federal rules restrict any use of the information to criminally investigate or prosecute any alcohol or drug abuse patient.[facility] CenterIn the event this information is protected by the Federal Confidentiality of Alcohol and Drug Abuse Patient Records regulations: The Federal rules restrict any use of the information to criminally investigate or prosecute any alcohol or drug abuse patient.[facility] CenterIn the event this information is protected by the Federal Confidentiality of Alcohol and Drug Abuse Patient Records regulations: The Federal rules restrict any use of the information to criminally investigate or prosecute any alcohol or drug abuse patient.[facility] CenterIn the event this information is protected by the Federal Confidentiality of Alcohol and Drug Abuse Patient Records regulations: The Federal rules restrict any use of the information to criminally investigate or prosecute any alcohol or drug abuse patient.[facility] CenterIn the event this information is protected by the Federal Confidentiality of Alcohol and Drug Abuse Patient Records regulations: The Federal rules restrict any use of the information to criminally investigate or prosecute any alcohol or drug abuse patient.[facility] CenterIn the event this information is protected by the Federal Confidentiality of Alcohol and Drug Abuse Patient Records regulations: The Federal rules restrict any use of the information to criminally investigate or prosecute any alcohol or drug abuse patient.[facility] CenterIn the event this information is protected by the Federal Confidentiality of Alcohol and Drug Abuse Patient Records regulations: The Federal rules restrict any use of the information to criminally investigate or prosecute any alcohol or drug abuse patient.[facility] CenterIn the event this information is protected by the Federal Confidentiality of Alcohol and Drug Abuse Patient Records regulations: The Federal rules restrict any use of the information to criminally investigate or prosecute any alcohol or drug abuse patient.[facility] CenterIn the event this information is protected by the Federal Confidentiality of Alcohol and Drug Abuse Patient Records regulations: The Federal rules restrict any use of the information to criminally investigate or prosecute any alcohol or drug abuse patient.[facility] CenterIn the event this information is protected by the Federal Confidentiality of Alcohol and Drug Abuse Patient Records regulations: The Federal rules restrict any use of the information to criminally investigate or prosecute any alcohol or drug abuse patient.[facility] CenterIn the event this information is protected by the Federal Confidentiality of Alcohol and Drug Abuse Patient Records regulations: The Federal rules restrict any use of the information to criminally investigate or prosecute any alcohol or drug abuse patient.[facility] CenterIn the event this information is protected by the Federal Confidentiality of Alcohol and Drug Abuse Patient Records regulations: The Federal rules restrict any use of the information to criminally investigate or prosecute any alcohol or drug abuse patient.[facility] CenterIn the event this information is protected by the Federal Confidentiality of Alcohol and Drug Abuse Patient Records regulations: The Federal rules restrict any use of the information to criminally investigate or prosecute any alcohol or drug abuse patient.[facility] CenterIn the event this information is protected by the Federal Confidentiality of Alcohol and Drug Abuse Patient Records regulations: The Federal rules restrict any use of the information to criminally investigate or prosecute any alcohol or drug abuse patient.[facility] CenterIn the event this information is protected by the Federal Confidentiality of Alcohol and Drug Abuse Patient Records regulations: The Federal rules restrict any use of the information to criminally investigate or prosecute any alcohol or drug abuse patient.[facility] CenterIn the event this information is protected by the Federal Confidentiality of Alcohol and Drug Abuse Patient Records regulations: The Federal rules restrict any use of the information to criminally investigate or prosecute any alcohol or drug abuse patient.[facility] CenterIn the event this information is protected by the Federal Confidentiality of Alcohol and Drug Abuse Patient Records regulations: The Federal rules restrict any use of the information to criminally investigate or prosecute any alcohol or drug abuse patient.[facility] CenterIn the event this information is protected by the Federal Confidentiality of Alcohol and Drug Abuse Patient Records regulations: The Federal rules restrict any use of the information to criminally investigate or prosecute any alcohol or drug abuse patient.[facility] CenterIn the event this information is protected by the Federal Confidentiality of Alcohol and Drug Abuse Patient Records regulations: The Federal rules restrict any use of the information to criminally investigate or prosecute any alcohol or drug abuse patient.[facility] CenterIn the event this information is protected by the Federal Confidentiality of Alcohol and Drug Abuse Patient Records regulations: The Federal rules restrict any use of the information to criminally investigate or prosecute any alcohol or drug abuse patient.[facility] CenterIn the event this information is protected by the Federal Confidentiality of Alcohol and Drug Abuse Patient Records regulations: The Federal rules restrict any use of the information to criminally investigate or prosecute any alcohol or drug abuse patient.[facility] CenterIn the event this information is protected by the Federal Confidentiality of Alcohol and Drug Abuse Patient Records regulations: The Federal rules restrict any use of the information to criminally investigate or prosecute any alcohol or drug abuse patient.[facility] CenterIn the event this information is protected by the Federal Confidentiality of Alcohol and Drug Abuse Patient Records regulations: The Federal rules restrict any use of the information to criminally investigate or prosecute any alcohol or drug abuse patient.[facility] CenterIn the event this information is protected by the Federal Confidentiality of Alcohol and Drug Abuse Patient Records regulations: The Federal rules restrict any use of the information to criminally investigate or prosecute any alcohol or drug abuse patient.[facility] CenterIn the event this information is protected by the Federal Confidentiality of Alcohol and Drug Abuse Patient Records regulations: The Federal rules restrict any use of the information to criminally investigate or prosecute any alcohol or drug abuse patient.[facility] CenterIn the event this information is protected by the Federal Confidentiality of Alcohol and Drug Abuse Patient Records regulations: The Federal rules restrict any use of the information to criminally investigate or prosecute any alcohol or drug abuse patient.[facility] CenterIn the event this information is protected by the Federal Confidentiality of Alcohol and Drug Abuse Patient Records regulations: The Federal rules restrict any use of the information to criminally investigate or prosecute any alcohol or drug abuse patient.[facility] CenterIn the event this information is protected by the Federal Confidentiality of Alcohol and Drug Abuse Patient Records regulations: The Federal rules restrict any use of the information to criminally investigate or prosecute any alcohol or drug abuse patient.[facility] CenterIn the event this information is protected by the Federal Confidentiality of Alcohol and Drug Abuse Patient Records regulations: The Federal rules restrict any use of the information to criminally investigate or prosecute any alcohol or drug abuse patient.[facility] CenterIn the event this information is protected by the Federal Confidentiality of Alcohol and Drug Abuse Patient Records regulations: The Federal rules restrict any use of the information to criminally investigate or prosecute any alcohol or drug abuse patient.[facility] CenterIn the event this information is protected by the Federal Confidentiality of Alcohol and Drug Abuse Patient Records regulations: The Federal rules restrict any use of the information to criminally investigate or prosecute any alcohol or drug abuse patient.[facility] CenterIn the event this information is protected by the Federal Confidentiality of Alcohol and Drug Abuse Patient Records regulations: The Federal rules restrict any use of the information to criminally investigate or prosecute any alcohol or drug abuse patient.[facility] CenterIn the event this information is protected by the Federal Confidentiality of Alcohol and Drug Abuse Patient Records regulations: The Federal rules restrict any use of the information to criminally investigate or prosecute any alcohol or drug abuse patient.[facility] CenterIn the event this information is protected by the Federal Confidentiality of Alcohol and Drug Abuse Patient Records regulations: The Federal rules restrict any use of the information to criminally investigate or prosecute any alcohol or drug abuse patient.[facility] CenterIn the event this information is protected by the Federal Confidentiality of Alcohol and Drug Abuse Patient Records regulations: The Federal rules restrict any use of the information to criminally investigate or prosecute any alcohol or drug abuse patient.[facility] CenterIn the event this information is protected by the Federal Confidentiality of Alcohol and Drug Abuse Patient Records regulations: The Federal rules restrict any use of the information to criminally investigate or prosecute any alcohol or drug abuse patient.[facility] CenterIn the event this information is protected by the Federal Confidentiality of Alcohol and Drug Abuse Patient Records regulations: The Federal rules restrict any use of the information to criminally investigate or prosecute any alcohol or drug abuse patient.[facility] CenterIn the event this information is protected by the Federal Confidentiality of Alcohol and Drug Abuse Patient Records regulations: The Federal rules restrict any use of the information to criminally investigate or prosecute any alcohol or drug abuse patient.[facility] CenterIn the event this information is protected by the Federal Confidentiality of Alcohol and Drug Abuse Patient Records regulations: The Federal rules restrict any use of the information to criminally investigate or prosecute any alcohol or drug abuse patient.[facility] CenterIn the event this information is protected by the Federal Confidentiality of Alcohol and Drug Abuse Patient Records regulations: The Federal rules restrict any use of the information to criminally investigate or prosecute any alcohol or drug abuse patient.[facility] CenterIn the event this information is protected by the Federal Confidentiality of Alcohol and Drug Abuse Patient Records regulations: The Federal rules restrict any use of the information to criminally investigate or prosecute any alcohol or drug abuse patient.[facility] CenterIn the event this information is protected by the Federal Confidentiality of Alcohol and Drug Abuse Patient Records regulations: The Federal rules restrict any use of the information to criminally investigate or prosecute any alcohol or drug abuse patient.[facility] CenterIn the event this information is protected by the Federal Confidentiality of Alcohol and Drug Abuse Patient Records regulations: The Federal rules restrict any use of the information to criminally investigate or prosecute any alcohol or drug abuse patient.[facility] CenterIn the event this information is protected by the Federal Confidentiality of Alcohol and Drug Abuse Patient Records regulations: The Federal rules restrict any use of the information to criminally investigate or prosecute any alcohol or drug abuse patient.[facility] CenterIn the event this information is protected by the Federal Confidentiality of Alcohol and Drug Abuse Patient Records regulations: The Federal rules restrict any use of the information to criminally investigate or prosecute any alcohol or drug abuse patient.[facility] CenterIn the event this information is protected by the Federal Confidentiality of Alcohol and Drug Abuse Patient Records regulations: The Federal rules restrict any use of the information to criminally investigate or prosecute any alcohol or drug abuse patient.[facility] CenterIn the event this information is protected by the Federal Confidentiality of Alcohol and Drug Abuse Patient Records regulations: The Federal rules restrict any use of the information to criminally investigate or prosecute any alcohol or drug abuse patient.[facility] CenterIn the event this information is protected by the Federal Confidentiality of Alcohol and Drug Abuse Patient Records regulations: The Federal rules restrict any use of the information to criminally investigate or prosecute any alcohol or drug abuse patient.[facility] CenterIn the event this information is protected by the Federal Confidentiality of Alcohol and Drug Abuse Patient Records regulations: The Federal rules restrict any use of the information to criminally investigate or prosecute any alcohol or drug abuse patient.[facility] CenterIn the event this information is protected by the Federal Confidentiality of Alcohol and Drug Abuse Patient Records regulations: The Federal rules restrict any use of the information to criminally investigate or prosecute any alcohol or drug abuse patient.[facility] CenterIn the event this information is protected by the Federal Confidentiality of Alcohol and Drug Abuse Patient Records regulations: The Federal rules restrict any use of the information to criminally investigate or prosecute any alcohol or drug abuse patient.[facility] CenterIn the event this information is protected by the Federal Confidentiality of Alcohol and Drug Abuse Patient Records regulations: The Federal rules restrict any use of the information to criminally investigate or prosecute any alcohol or drug abuse patient.[facility] CenterIn the event this information is protected by the Federal Confidentiality of Alcohol and Drug Abuse Patient Records regulations: The Federal rules restrict any use of the information to criminally investigate or prosecute any alcohol or drug abuse patient.[facility] CenterIn the event this information is protected by the Federal Confidentiality of Alcohol and Drug Abuse Patient Records regulations: The Federal rules restrict any use of the information to criminally investigate or prosecute any alcohol or drug abuse patient.[facility] CenterIn the event this information is protected by the Federal Confidentiality of Alcohol and Drug Abuse Patient Records regulations: The Federal rules restrict any use of the information to criminally investigate or prosecute any alcohol or drug abuse patient.[facility] CenterIn the event this information is protected by the Federal Confidentiality of Alcohol and Drug Abuse Patient Records regulations: The Federal rules restrict any use of the information to criminally investigate or prosecute any alcohol or drug abuse patient.[facility] CenterIn the event this information is protected by the Federal Confidentiality of Alcohol and Drug Abuse Patient Records regulations: The Federal rules restrict any use of the information to criminally investigate or prosecute any alcohol or drug abuse patient.[facility] CenterIn the event this information is protected by the Federal Confidentiality of Alcohol and Drug Abuse Patient Records regulations: The Federal rules restrict any use of the information to criminally investigate or prosecute any alcohol or drug abuse patient.[facility] CenterIn the event this information is protected by the Federal Confidentiality of Alcohol and Drug Abuse Patient Records regulations: The Federal rules restrict any use of the information to criminally investigate or prosecute any alcohol or drug abuse patient.[facility] CenterIn the event this information is protected by the Federal Confidentiality of Alcohol and Drug Abuse Patient Records regulations: The Federal rules restrict any use of the information to criminally investigate or prosecute any alcohol or drug abuse patient.[facility] CenterIn the event this information is protected by the Federal Confidentiality of Alcohol and Drug Abuse Patient Records regulations: The Federal rules restrict any use of the information to criminally investigate or prosecute any alcohol or drug abuse patient.[facility] CenterIn the event this information is protected by the Federal Confidentiality of Alcohol and Drug Abuse Patient Records regulations: The Federal rules restrict any use of the information to criminally investigate or prosecute any alcohol or drug abuse patient.[facility] CenterIn the event this information is protected by the Federal Confidentiality of Alcohol and Drug Abuse Patient Records regulations: The Federal rules restrict any use of the information to criminally investigate or prosecute any alcohol or drug abuse patient.[facility] CenterIn the event this information is protected by the Federal Confidentiality of Alcohol and Drug Abuse Patient Records regulations: The Federal rules restrict any use of the information to criminally investigate or prosecute any alcohol or drug abuse patient.[facility] CenterIn the event this information is protected by the Federal Confidentiality of Alcohol and Drug Abuse Patient Records regulations: The Federal rules restrict any use of the information to criminally investigate or prosecute any alcohol or drug abuse patient.[facility] CenterIn the event this information is protected by the Federal Confidentiality of Alcohol and Drug Abuse Patient Records regulations: The Federal rules restrict any use of the information to criminally investigate or prosecute any alcohol or drug abuse patient.[facility] CenterIn the event this information is protected by the Federal Confidentiality of Alcohol and Drug Abuse Patient Records regulations: The Federal rules restrict any use of the information to criminally investigate or prosecute any alcohol or drug abuse patient.[facility] CenterIn the event this information is protected by the Federal Confidentiality of Alcohol and Drug Abuse Patient Records regulations: The Federal rules restrict any use of the information to criminally investigate or prosecute any alcohol or drug abuse patient.[facility] CenterIn the event this information is protected by the Federal Confidentiality of Alcohol and Drug Abuse Patient Records regulations: The Federal rules restrict any use of the information to criminally investigate or prosecute any alcohol or drug abuse patient.[facility] CenterIn the event this information is protected by the Federal Confidentiality of Alcohol and Drug Abuse Patient Records regulations: The Federal rules restrict any use of the information to criminally investigate or prosecute any alcohol or drug abuse patient.[facility] CenterIn the event this information is protected by the Federal Confidentiality of Alcohol and Drug Abuse Patient Records regulations: The Federal rules restrict any use of the information to criminally investigate or prosecute any alcohol or drug abuse patient.[facility] CenterIn the event this information is protected by the Federal Confidentiality of Alcohol and Drug Abuse Patient Records regulations: The Federal rules restrict any use of the information to criminally investigate or prosecute any alcohol or drug abuse patient.[facility] CenterIn the event this information is protected by the Federal Confidentiality of Alcohol and Drug Abuse Patient Records regulations: The Federal rules restrict any use of the information to criminally investigate or prosecute any alcohol or drug abuse patient.[facility] CenterIn the event this information is protected by the Federal Confidentiality of Alcohol and Drug Abuse Patient Records regulations: The Federal rules restrict any use of the information to criminally investigate or prosecute any alcohol or drug abuse patient.[facility] CenterIn the event this information is protected by the Federal Confidentiality of Alcohol and Drug Abuse Patient Records regulations: The Federal rules restrict any use of the information to criminally investigate or prosecute any alcohol or drug abuse patient.[facility] CenterIn the event this information is protected by the Federal Confidentiality of Alcohol and Drug Abuse Patient Records regulations: The Federal rules restrict any use of the information to criminally investigate or prosecute any alcohol or drug abuse patient.[facility] CenterIn the event this information is protected by the Federal Confidentiality of Alcohol and Drug Abuse Patient Records regulations: The Federal rules restrict any use of the information to criminally investigate or prosecute any alcohol or drug abuse patient.[facility] CenterIn the event this information is protected by the Federal Confidentiality of Alcohol and Drug Abuse Patient Records regulations: The Federal rules restrict any use of the information to criminally investigate or prosecute any alcohol or drug abuse patient.[facility] CenterIn the event this information is protected by the Federal Confidentiality of Alcohol and Drug Abuse Patient Records regulations: The Federal rules restrict any use of the information to criminally investigate or prosecute any alcohol or drug abuse patient.[facility] CenterIn the event this information is protected by the Federal Confidentiality of Alcohol and Drug Abuse Patient Records regulations: The Federal rules restrict any use of the information to criminally investigate or prosecute any alcohol or drug abuse patient.[facility] CenterIn the event this information is protected by the Federal Confidentiality of Alcohol and Drug Abuse Patient Records regulations: The Federal rules restrict any use of the information to criminally investigate or prosecute any alcohol or drug abuse patient.[facility] CenterIn the event this information is protected by the Federal Confidentiality of Alcohol and Drug Abuse Patient Records regulations: The Federal rules restrict any use of the information to criminally investigate or prosecute any alcohol or drug abuse patient.[facility] CenterIn the event this information is protected by the Federal Confidentiality of Alcohol and Drug Abuse Patient Records regulations: The Federal rules restrict any use of the information to criminally investigate or prosecute any alcohol or drug abuse patient.[facility] CenterIn the event this information is protected by the Federal Confidentiality of Alcohol and Drug Abuse Patient Records regulations: The Federal rules restrict any use of the information to criminally investigate or prosecute any alcohol or drug abuse patient.[facility] CenterIn the event this information is protected by the Federal Confidentiality of Alcohol and Drug Abuse Patient Records regulations: The Federal rules restrict any use of the information to criminally investigate or prosecute any alcohol or drug abuse patient.[facility] CenterIn the event this information is protected by the Federal Confidentiality of Alcohol and Drug Abuse Patient Records regulations: The Federal rules restrict any use of the information to criminally investigate or prosecute any alcohol or drug abuse patient.[facility] CenterIn the event this information is protected by the Federal Confidentiality of Alcohol and Drug Abuse Patient Records regulations: The Federal rules restrict any use of the information to criminally investigate or prosecute any alcohol or drug abuse patient.[facility] CenterIn the event this information is protected by the Federal Confidentiality of Alcohol and Drug Abuse Patient Records regulations: The Federal rules restrict any use of the information to criminally investigate or prosecute any alcohol or drug abuse patient.[facility] CenterIn the event this information is protected by the Federal Confidentiality of Alcohol and Drug Abuse Patient Records regulations: The Federal rules restrict any use of the information to criminally investigate or prosecute any alcohol or drug abuse patient.[facility] CenterIn the event this information is protected by the Federal Confidentiality of Alcohol and Drug Abuse Patient Records regulations: The Federal rules restrict any use of the information to criminally investigate or prosecute any alcohol or drug abuse patient.[facility] CenterIn the event this information is protected by the Federal Confidentiality of Alcohol and Drug Abuse Patient Records regulations: The Federal rules restrict any use of the information to criminally investigate or prosecute any alcohol or drug abuse patient.[facility] CenterIn the event this information is protected by the Federal Confidentiality of Alcohol and Drug Abuse Patient Records regulations: The Federal rules restrict any use of the information to criminally investigate or prosecute any alcohol or drug abuse patient.[facility] CenterIn the event this information is protected by the Federal Confidentiality of Alcohol and Drug Abuse Patient Records regulations: The Federal rules restrict any use of the information to criminally investigate or prosecute any alcohol or drug abuse patient.[facility] CenterIn the event this information is protected by the Federal Confidentiality of Alcohol and Drug Abuse Patient Records regulations: The Federal rules restrict any use of the information to criminally investigate or prosecute any alcohol or drug abuse patient.[facility] CenterIn the event this information is protected by the Federal Confidentiality of Alcohol and Drug Abuse Patient Records regulations: The Federal rules restrict any use of the information to criminally investigate or prosecute any alcohol or drug abuse patient.[facility] CenterIn the event this information is protected by the Federal Confidentiality of Alcohol and Drug Abuse Patient Records regulations: The Federal rules restrict any use of the information to criminally investigate or prosecute any alcohol or drug abuse patient.[facility] CenterIn the event this information is protected by the Federal Confidentiality of Alcohol and Drug Abuse Patient Records regulations: The Federal rules restrict any use of the information to criminally investigate or prosecute any alcohol or drug abuse patient.[facility] CenterIn the event this information is protected by the Federal Confidentiality of Alcohol and Drug Abuse Patient Records regulations: The Federal rules restrict any use of the information to criminally investigate or prosecute any alcohol or drug abuse patient.[facility] CenterIn the event this information is protected by the Federal Confidentiality of Alcohol and Drug Abuse Patient Records regulations: The Federal rules restrict any use of the information to criminally investigate or prosecute any alcohol or drug abuse patient.[facility] CenterIn the event this information is protected by the Federal Confidentiality of Alcohol and Drug Abuse Patient Records regulations: The Federal rules restrict any use of the information to criminally investigate or prosecute any alcohol or drug abuse patient.[facility] CenterIn the event this information is protected by the Federal Confidentiality of Alcohol and Drug Abuse Patient Records regulations: The Federal rules restrict any use of the information to criminally investigate or prosecute any alcohol or drug abuse patient.[facility] CenterIn the event this information is protected by the Federal Confidentiality of Alcohol and Drug Abuse Patient Records regulations: The Federal rules restrict any use of the information to criminally investigate or prosecute any alcohol or drug abuse patient.[facility] CenterIn the event this information is protected by the Federal Confidentiality of Alcohol and Drug Abuse Patient Records regulations: The Federal rules restrict any use of the information to criminally investigate or prosecute any alcohol or drug abuse patient.[facility] CenterIn the event this information is protected by the Federal Confidentiality of Alcohol and Drug Abuse Patient Records regulations: The Federal rules restrict any use of the information to criminally investigate or prosecute any alcohol or drug abuse patient.[facility] CenterIn the event this information is protected by the Federal Confidentiality of Alcohol and Drug Abuse Patient Records regulations: The Federal rules restrict any use of the information to criminally investigate or prosecute any alcohol or drug abuse patient.[facility] CenterIn the event this information is protected by the Federal Confidentiality of Alcohol and Drug Abuse Patient Records regulations: The Federal rules restrict any use of the information to criminally investigate or prosecute any alcohol or drug abuse patient.[facility] CenterIn the event this information is protected by the Federal Confidentiality of Alcohol and Drug Abuse Patient Records regulations: The Federal rules restrict any use of the information to criminally investigate or prosecute any alcohol or drug abuse patient.[facility] CenterIn the event this information is protected by the Federal Confidentiality of Alcohol and Drug Abuse Patient Records regulations: The Federal rules restrict any use of the information to criminally investigate or prosecute any alcohol or drug abuse patient.[facility] CenterIn the event this information is protected by the Federal Confidentiality of Alcohol and Drug Abuse Patient Records regulations: The Federal rules restrict any use of the information to criminally investigate or prosecute any alcohol or drug abuse patient.[facility] CenterIn the event this information is protected by the Federal Confidentiality of Alcohol and Drug Abuse Patient Records regulations: The Federal rules restrict any use of the information to criminally investigate or prosecute any alcohol or drug abuse patient.[facility] CenterIn the event this information is protected by the Federal Confidentiality of Alcohol and Drug Abuse Patient Records regulations: The Federal rules restrict any use of the information to criminally investigate or prosecute any alcohol or drug abuse patient.[facility] CenterIn the event this information is protected by the Federal Confidentiality of Alcohol and Drug Abuse Patient Records regulations: The Federal rules restrict any use of the information to criminally investigate or prosecute any alcohol or drug abuse patient.[facility] CenterIn the event this information is protected by the Federal Confidentiality of Alcohol and Drug Abuse Patient Records regulations: The Federal rules restrict any use of the information to criminally investigate or prosecute any alcohol or drug abuse patient.[facility] CenterIn the event this information is protected by the Federal Confidentiality of Alcohol and Drug Abuse Patient Records regulations: The Federal rules restrict any use of the information to criminally investigate or prosecute any alcohol or drug abuse patient.[facility] CenterIn the event this information is protected by the Federal Confidentiality of Alcohol and Drug Abuse Patient Records regulations: The Federal rules restrict any use of the information to criminally investigate or prosecute any alcohol or drug abuse patient.[facility] CenterIn the event this information is protected by the Federal Confidentiality of Alcohol and Drug Abuse Patient Records regulations: The Federal rules restrict any use of the information to criminally investigate or prosecute any alcohol or drug abuse patient.[facility] CenterIn the event this information is protected by the Federal Confidentiality of Alcohol and Drug Abuse Patient Records regulations: The Federal rules restrict any use of the information to criminally investigate or prosecute any alcohol or drug abuse patient.[facility] CenterIn the event this information is protected by the Federal Confidentiality of Alcohol and Drug Abuse Patient Records regulations: The Federal rules restrict any use of the information to criminally investigate or prosecute any alcohol or drug abuse patient.[facility] CenterIn the event this information is protected by the Federal Confidentiality of Alcohol and Drug Abuse Patient Records regulations: The Federal rules restrict any use of the information to criminally investigate or prosecute any alcohol or drug abuse patient.[facility] CenterIn the event this information is protected by the Federal Confidentiality of Alcohol and Drug Abuse Patient Records regulations: The Federal rules restrict any use of the information to criminally investigate or prosecute any alcohol or drug abuse patient.[facility] CenterIn the event this information is protected by the Federal Confidentiality of Alcohol and Drug Abuse Patient Records regulations: The Federal rules restrict any use of the information to criminally investigate or prosecute any alcohol or drug abuse patient.[facility] CenterIn the event this information is protected by the Federal Confidentiality of Alcohol and Drug Abuse Patient Records regulations: The Federal rules restrict any use of the information to criminally investigate or prosecute any alcohol or drug abuse patient.[facility] CenterIn the event this information is protected by the Federal Confidentiality of Alcohol and Drug Abuse Patient Records regulations: The Federal rules restrict any use of the information to criminally investigate or prosecute any alcohol or drug abuse patient.[facility] CenterIn the event this information is protected by the Federal Confidentiality of Alcohol and Drug Abuse Patient Records regulations: The Federal rules restrict any use of the information to criminally investigate or prosecute any alcohol or drug abuse patient.[facility] CenterIn the event this information is protected by the Federal Confidentiality of Alcohol and Drug Abuse Patient Records regulations: The Federal rules restrict any use of the information to criminally investigate or prosecute any alcohol or drug abuse patient.[facility] CenterIn the event this information is protected by the Federal Confidentiality of Alcohol and Drug Abuse Patient Records regulations: The Federal rules restrict any use of the information to criminally investigate or prosecute any alcohol or drug abuse patient.[facility] CenterIn the event this information is protected by the Federal Confidentiality of Alcohol and Drug Abuse Patient Records regulations: The Federal rules restrict any use of the information to criminally investigate or prosecute any alcohol or drug abuse patient.[facility] CenterIn the event this information is protected by the Federal Confidentiality of Alcohol and Drug Abuse Patient Records regulations: The Federal rules restrict any use of the information to criminally investigate or prosecute any alcohol or drug abuse patient.[facility] CenterIn the event this information is protected by the Federal Confidentiality of Alcohol and Drug Abuse Patient Records regulations: The Federal rules restrict any use of the information to criminally investigate or prosecute any alcohol or drug abuse patient.[facility] CenterIn the event this information is protected by the Federal Confidentiality of Alcohol and Drug Abuse Patient Records regulations: The Federal rules restrict any use of the information to criminally investigate or prosecute any alcohol or drug abuse patient.[facility] CenterIn the event this information is protected by the Federal Confidentiality of Alcohol and Drug Abuse Patient Records regulations: The Federal rules restrict any use of the information to criminally investigate or prosecute any alcohol or drug abuse patient.[facility] CenterIn the event this information is protected by the Federal Confidentiality of Alcohol and Drug Abuse Patient Records regulations: The Federal rules restrict any use of the information to criminally investigate or prosecute any alcohol or drug abuse patient.[facility] CenterIn the event this information is protected by the Federal Confidentiality of Alcohol and Drug Abuse Patient Records regulations: The Federal rules restrict any use of the information to criminally investigate or prosecute any alcohol or drug abuse patient.[facility] CenterIn the event this information is protected by the Federal Confidentiality of Alcohol and Drug Abuse Patient Records regulations: The Federal rules restrict any use of the information to criminally investigate or prosecute any alcohol or drug abuse patient.[facility] CenterIn the event this information is protected by the Federal Confidentiality of Alcohol and Drug Abuse Patient Records regulations: The Federal rules restrict any use of the information to criminally investigate or prosecute any alcohol or drug abuse patient.[facility] CenterIn the event this information is protected by the Federal Confidentiality of Alcohol and Drug Abuse Patient Records regulations: The Federal rules restrict any use of the information to criminally investigate or prosecute any alcohol or drug abuse patient.[facility] CenterIn the event this information is protected by the Federal Confidentiality of Alcohol and Drug Abuse Patient Records regulations: The Federal rules restrict any use of the information to criminally investigate or prosecute any alcohol or drug abuse patient.[facility] CenterIn the event this information is protected by the Federal Confidentiality of Alcohol and Drug Abuse Patient Records regulations: The Federal rules restrict any use of the information to criminally investigate or prosecute any alcohol or drug abuse patient.[facility] CenterIn the event this information is protected by the Federal Confidentiality of Alcohol and Drug Abuse Patient Records regulations: The Federal rules restrict any use of the information to criminally investigate or prosecute any alcohol or drug abuse patient.[facility] CenterIn the event this information is protected by the Federal Confidentiality of Alcohol and Drug Abuse Patient Records regulations: The Federal rules restrict any use of the information to criminally investigate or prosecute any alcohol or drug abuse patient.[facility] CenterIn the event this information is protected by the Federal Confidentiality of Alcohol and Drug Abuse Patient Records regulations: The Federal rules restrict any use of the information to criminally investigate or prosecute any alcohol or drug abuse patient.[facility] CenterIn the event this information is protected by the Federal Confidentiality of Alcohol and Drug Abuse Patient Records regulations: The Federal rules restrict any use of the information to criminally investigate or prosecute any alcohol or drug abuse patient.[facility] CenterIn the event this information is protected by the Federal Confidentiality of Alcohol and Drug Abuse Patient Records regulations: The Federal rules restrict any use of the information to criminally investigate or prosecute any alcohol or drug abuse patient.[facility] CenterIn the event this information is protected by the Federal Confidentiality of Alcohol and Drug Abuse Patient Records regulations: The Federal rules restrict any use of the information to criminally investigate or prosecute any alcohol or drug abuse patient.[facility] CenterIn the event this information is protected by the Federal Confidentiality of Alcohol and Drug Abuse Patient Records regulations: The Federal rules restrict any use of the information to criminally investigate or prosecute any alcohol or drug abuse patient.[facility] CenterIn the event this information is protected by the Federal Confidentiality of Alcohol and Drug Abuse Patient Records regulations: The Federal rules restrict any use of the information to criminally investigate or prosecute any alcohol or drug abuse patient.[facility] CenterIn the event this information is protected by the Federal Confidentiality of Alcohol and Drug Abuse Patient Records regulations: The Federal rules restrict any use of the information to criminally investigate or prosecute any alcohol or drug abuse patient.[facility] CenterIn the event this information is protected by the Federal Confidentiality of Alcohol and Drug Abuse Patient Records regulations: The Federal rules restrict any use of the information to criminally investigate or prosecute any alcohol or drug abuse patient.[facility] CenterIn the event this information is protected by the Federal Confidentiality of Alcohol and Drug Abuse Patient Records regulations: The Federal rules restrict any use of the information to criminally investigate or prosecute any alcohol or drug abuse patient.[facility] CenterIn the event this information is protected by the Federal Confidentiality of Alcohol and Drug Abuse Patient Records regulations: The Federal rules restrict any use of the information to criminally investigate or prosecute any alcohol or drug abuse patient.[facility] CenterIn the event this information is protected by the Federal Confidentiality of Alcohol and Drug Abuse Patient Records regulations: The Federal rules restrict any use of the information to criminally investigate or prosecute any alcohol or drug abuse patient.[facility] CenterIn the event this information is protected by the Federal Confidentiality of Alcohol and Drug Abuse Patient Records regulations: The Federal rules restrict any use of the information to criminally investigate or prosecute any alcohol or drug abuse patient.[facility] CenterIn the event this information is protected by the Federal Confidentiality of Alcohol and Drug Abuse Patient Records regulations: The Federal rules restrict any use of the information to criminally investigate or prosecute any alcohol or drug abuse patient.[facility] INFORMATION SOURCE (unrecogn ized section and content) DATE CREATED AUTHOR 11/25/2021 [facility] DATE CREATED AUTHOR AUTHOR'S ORGANIZ ATION 03/09/2022 [facility] DATE CREATED AUTHOR AUTHOR'S ORGANIZ ATION 04/26/2022 [facility] DATE CREATED AUTHOR AUTHOR'S ORGANIZ ATION 08/07/2022 [facility] DATE CREATED AUTHOR AUTHOR'S ORGANIZ ATION 10/08/2022 [facility] DATE CREATED AUTHOR AUTHOR'S ORGANIZ ATION 07/22/2023 [facility] DATE CREATED AUTHOR AUTHOR'S ORGANIZ ATION 08/03/2023 [facility] FOR RECORDS PERTAINING TO PATIENTS WHO ARE OR HAVE BEEN ENROLLED IN A CHEMICAL DEPENDENCY/SUBSTANCEABUSE PROGRAM, SOME INFORMATION MAY BE OMITTED. This clinical summary was aggregated from multiple sources. Caution should be exercised in using it in the provision of clinical care. This summary normalizes information from multiple sources, and as a consequence, information in this document may materially change the coding, format and clinical context of patient data. In addition, data may be omitted in some cases. CLINICAL DECISIONS SHOULD BE BASED ON THE PRIMARY CLINICAL RECORDS. [facility] [employer] [facility] provides no warranty or guarantee of the accuracy or completeness of information in this document.
[2023-08-04 07:59] LABS: Estimated Average Glucose 143 mg/dL; Glycohemoglobin A1C 6.6 % (4.5-6.2)
[2023-08-04 08:11] LABS: Chol HDL Ratio 2.2; Cholesterol 138 mg/dL (<=200); HDL Cholesterol 63 mg/dL (40-60); Triglycerides 188 mg/dL (<=150); VLDL CHOLESTEROL 37.6 mg/dL
== END 2023-08-04 07:20 | disposition home or self-care (01) ==
LOC: LAB 07:21
PROVIDERS: PCP Family Medicine; Visit Provider Family Medicine
DX: E11.69 Type 2 diabetes mellitus with other specified complication (principal); E78.2 Mixed hyperlipidemia
CPT/HCPCS: 36415; 80061; 83036

== ENCOUNTER 2024-08-06 10:21 | Outpatient (OUT) | payer MEDICARE, BC, SELFPAY ==
--- OUTSIDE RECORDS SUMMARY | 2024-07-30 09:37 | XMS_ITS | Encounter Summary ---
Author Organization [facility] Address [address] [place] [address] Care Team Providers Care Patient Scheduling Coordinator Name Role Phone Shaikh SHANIQUA West Primary Care Provider [phone] Christopher Castañeda MD Unavailable [phone] Miriam Nj RN Unavailable [phone] Dipti Toussaint APRN.INTERNAL AUDIT DIRECTOR Unavailable [phone] Shereen Arnett Unavailable Unavailable Nate Duval MD Primary Care Provider [phone] Source Comments In the event this information is protected by the Federal Confidentiality of Alcohol and Drug AbusePatient Records regulations: The Federal rules restrict any use of the information to criminally investigate or prosecute any alcohol or drug abuse patient.[facility] Encounter Details Date Type Department Care Team (Late st Contact Info) Description 05/20/2022 GI Preprocedure Call [facility] Surgery [address] [place] [address] Shaikh West MD [address] [place] [address] Social History Tobacco Use Types Packs/Day Years Used Date Smoking Tobacco: Never Passive Smoke Exposure: Past Smokeless Tobacco: Never Alcohol Use Standard Drinks/Week Comments Not Currently 0 (1 standard drink = 0.6 oz pur e alcohol) 1 glass of wne a month PHQ-2 Answer Date Recorded PHQ-2 score 0 03/31/2022 Area Deprivation Index Answer Date Moshe rded National Score (1-100), lower number is lower ri sk 74 03/15/2022 State Score (1-10), lower number is lower risk N ot on file 03/15/2022 Data from: https://www.neighborhoodatlas.medicine.[facility]/. Last address used for calculation [address] [facility] [facility] 03/15/2022 Comments No Sex and Gender Information Value Date Recorded Sex Assigned at Female 10/14/2021 3:21 PM EDT Legal Sex Female 2:54 PM EDT Gender Identity Female 10/14/2021 3:21 PM EDT Sexual Orientation Choose not to disclose 2021 3:21 PM EDT Travel History Travel Start Travel End [place] 07/14/2024 07/22/2024 documented as of this encounter Plan of Treatment Upcoming Encounters Date Type Department Care Team (Late st Contact Info) Description 08/01/2024 1:00 PM EDT Office Visit Neurology [address] [place] [address] [place] [address] [place] [address] polyneuropathy 09/26/2024 1:30 PM EDT Infusion Center Hematology/Oncolog y [address] [place] [address] 12 week follow up with lab 09/26/2024 2:00 PM EDT Visit (SP) Office Hematology/Oncolog y [address] [place] [address] Christopher Castañeda MD [address] [facility] [place] [address] 12 week follow up PORT documented as of this encounter Visit Diagnoses Not on filedocumented in this encounter Care Teams Patient Scheduling Coordinator Relationship Specialty Start Date End Date Shaikh West MD [address] [place] [address] PCP - General Primary Care 10/21/21 05/23/22 Nate Duval MD PCP - General Family Medicine 05/24/22 Christopher Castañeda MD [address] [place] [address] Physician Hematology/Oncology 11/18/21 Miriam Nj, HENRRY [address] [place] [address] Specialty Cut In Worker Hematology/Oncology 11/18/21 Dipti Toussaint APRN.INTERNAL AUDIT DIRECTOR [address] [place] [address] Nurse Practitioner Hematology/Oncology 11/18/21 Shereen Arnett LSW Pantograph Transferrer 11/20/21 documented as of this encounter
--- OUTSIDE RECORDS SUMMARY | 2024-07-30 09:37 | XMS_ITS | Encounter Summary ---
Author Organization [facility] Address [facility] [place] [address] Care Team Providers Care Can Operator Name Role Phone Christopher Castañeda MD Unavailable [phone] Miriam Nj RN Unavailable [phone] Dipti Toussaint APRN.PLATING STRIPPER Unavailable [phone] Shereen Arnett Unavailable Unavailable Nate Duval MD Primary Care Provider [phone] Source Comments In the event this information is protected by the Federal Confidentiality of Alcohol and Drug AbusePatient Records regulations: The Federal rules restrict any use of the information to criminally investigate or prosecute any alcohol or drug abuse patient.[facility] Encounter Details Date Type Department Care Team (Late st Contact Info) Description 08/22/2023 Patient Msg Hematology/Oncology [address] [facility] [place] [address] Marsha Horowitz LMT Appointment Request Social History Tobacco Use Types Packs/Day Years Used Date Smoking Tobacco: Never Passive Smoke Exposure: Past Smokeless Tobacco: Never Alcohol Use Standard Drinks/Week Comments Not Currently 0 (1 standard drink = 0.6 oz pur e alcohol) 1 glass of wne a month PHQ-2 Answer Date Recorded PHQ-2 score 2 07/31/2023 Area Deprivation Index Answer Date Moshe rded National Score (1-100), lower number is lower ri sk 87 06/30/2022 State Score (1-10), lower number is lower risk 8 06/30/2022 Data from: https://www.neighborhoodatlas.medicine.[facility]/. Last address used for calculation [address] 06/30/2022 Comments No Sex and Gender Information Value Date Recorded Sex Assigned at Female 10/14/2021 3:21 PM EDT Legal Sex Female 2:54 PM EDT Gender Identity Female 10/14/2021 3:21 PM EDT Sexual Orientation Choose not to disclose 2021 3:21 PM EDT Travel History Travel Start Travel End [place] 07/14/2024 07/22/2024 documented as of this encounter Plan of Treatment Upcoming Encounters Date Type Department Care Team (Late st Contact Info) Description 08/01/2024 1:00 PM EDT Office Visit Neurology [address] [place] [address] [place] [address] [place] [address] polyneuropathy 09/26/2024 1:30 PM EDT Infusion Center Hematology/Oncolog y [address] [place] [address] 12 week follow up with lab 09/26/2024 2:00 PM EDT Visit (SP) Office Hematology/Oncolog y [address] [place] [address] Christopher Castañeda MD [address] [facility] [place] [address] 12 week follow up [place] documented as of this encounter Visit Diagnoses Not on filedocumented in this encounter Care Teams Can Operator Relationship Specialty Start Date End Date Nate Duval MD PCP - General Family Medicine 05/24/22 Christopher Castañeda MD [address] [place] [address] Physician Hematology/Oncology 11/18/21 Miriam Nj, HENRRY [address] [place] [address] [place] [address] Specialty Personalized Living Assistant Hematology/Oncology 11/18/21 Dipti Toussaint APRN.PLATING STRIPPER [address] [place] [address] [place] [address] Nurse Practitioner Hematology/Oncology 11/18/21 Shereen Arnett LSW Pin Maker 11/20/21 documented as of this encounter
--- OUTSIDE RECORDS SUMMARY | 2024-07-30 09:37 | XMS_ITS | Encounter Summary ---
Author Organization [facility] Address [address] [place] [address] Care Team Providers Care Agency Development Manager Name Role Phone Shaikh SHANIQUA West Primary Care Provider [phone] Christopher Castañeda MD Unavailable [phone] Miriam Nj RN Unavailable [phone] Dipti Toussaint AGENT.PASSENGER SOLICITOR Unavailable [phone] Shereen Arnett Unavailable Unavailable Nate Duval MD Primary Care Provider [phone] Source Comments In the event this information is protected by the Federal Confidentiality of Alcohol and Drug AbusePatient Records regulations: The Federal rules restrict any use of the information to criminally investigate or prosecute any alcohol or drug abuse patient.[facility] Encounter Details Date Type Department Care Team (Late st Contact Info) Description 12/28/2021 Get Medical Advice Hematology/Oncology [address] [place] [address] Dipti Toussaint APRN.PASSENGER SOLICITOR [address] [place] [address] Normal or not Social History Tobacco Use Types Packs/Day Years Used Date Smoking Tobacco: Never Passive Smoke Exposure: Past Smokeless Tobacco: Never Alcohol Use Standard Drinks/Week Comments Yes 0 (1 standard drink = 0.6 oz pur e alcohol) PHQ-2 Answer Date Recorded PHQ-2 score 2 11/16/2021 Comments No Sex and Gender Information Value Date Recorded Sex Assigned at Female 10/14/2021 3:21 PM EDT Legal Sex Female 2:54 PM EDT Gender Identity Female 10/14/2021 3:21 PM EDT Sexual Orientation Choose not to disclose 2021 3:21 PM EDT Travel History Travel Start Travel End [place] 07/14/2024 07/22/2024 COVID-19 Exposure Response Date Recorded In the last 10 days, have yo u been in contact with someone who was confirmed or suspected to have Coronavirus/COVID-19? No / Unsure 12/25/2021 9:14 AM EDT documented as of this encounter Miscellaneous Notes * Telephone Encounter - Christopher Castañeda MD - 12/28/2021 4:37 PM EDT [facility] - yes, it's fairly common to feel that way... If you get worried about it, we can see you anytime. Dr. Terrie Hansen documented in this encounter Plan of Treatment Upcoming Encounters Date Type Department Care Team (Late st Contact Info) Description 08/01/2024 1:00 PM EDT Office Visit Neurology [address] [place] [address] [place] [address] [place] [address] polyneuropathy 09/26/2024 1:30 PM EDT Infusion Center Hematology/Oncolog y [facility] [place] [address] 12 week follow up with lab 09/26/2024 2:00 PM EDT Visit (SP) Office Hematology/Oncolog y [address] [place] [address] Christopher Castañeda MD [address] [facility] [place] [address] 12 week follow up PORT documented as of this encounter Visit Diagnoses Not on filedocumented in this encounter Care Teams Agency Development Manager Relationship Specialty Start Date End Date Shaikh West MD [address] [place] [place] [address] PCP - General Primary Care 10/21/21 05/23/22 Nate Duval MD PCP - General Family Medicine 05/24/22 Christopher Castañeda MD [address] [place] [address] Physician Hematology/Oncology 11/18/21 Miriam Nj, HENRRY [address] [place] [address] Specialty Assembler Metal Furniture Hematology/Oncology 11/18/21 Dipti Toussaint APRN.CNP [address] [place] [address] Nurse Practitioner Hematology/Oncology 11/18/21 Shereen Arnett LSW Laundry Operator 11/20/21 documented as of this encounter
--- OUTSIDE RECORDS SUMMARY | 2024-07-30 09:37 | XMS_ITS | Clinical Summary ---
Author Organization [facility] Address [address] [place] [address] Care Team Providers Care Newborn Photographer Name Role Phone Unavailable Primary Care Provider Unavailabl e Social History Tobacco Use Types Packs/Day Years Used Date Smoking Tobacco: Never Assessed [place] Safety & Environment Answer Date Rec orded Fear of Current or Ex-Partner Not on file Emotionally Abused Not on file 04/21/2023 Physically Abused Not on file 04/21/2023 Sexually Abused Not on file 04/21/2023 Physically or Sexually Abused Not on file Sex and Gender Information Value Date Recorded Sex Assigned at Not on file Gender Identity Not on file Sexual Orientation Not on file Plan of Treatment Not on file
--- OUTSIDE RECORDS SUMMARY | 2024-07-30 09:37 | XMS_ITS | Encounter Summary ---
Author Organization [facility] Address [facility] [place] [address] Care Team Providers Care Pigskin Trimmer Name Role Phone Christopher Castañeda MD Unavailable [phone] Miriam Nj RN Unavailable [phone] Dipti Toussaint APRN.SOOT BLOWER Unavailable [phone] Shereen Arnett Unavailable Unavailable Nate Duval MD Primary Care Provider [phone] Source Comments In the event this information is protected by the Federal Confidentiality of Alcohol and Drug AbusePatient Records regulations: The Federal rules restrict any use of the information to criminally investigate or prosecute any alcohol or drug abuse patient.[facility] Encounter Details Date Type Department Care Team (Latest Contact Info) Description 07/25/2024 Travel Social History Tobacco Use Types Packs/Day Years Used Date Smoking Tobacco: Never Passive Smoke Exposure: Past Smokeless Tobacco: Never Alcohol Use Standard Drinks/Week Comments Not Currently 0 (1 standard drink = 0.6 oz pur e alcohol) 1 glass of wne a month PHQ-2 Answer Date Recorded PHQ-2 score 0 06/18/2024 Area Deprivation Index Answer Date Moshe rded National Score (1-100), lower number is lower ri 87 06/30/2022 State Score (1-10), lower number is lower risk 8 06/30/2022 Data from: https://www.neighborhoodatlas.medicine.[facility].edu/. Last address used for calculation [address] 06/30/2022 Comments No Sex and Gender Information Value Date Recorded Sex Assigned at Female 10/14/2021 3:21 PM EDT Legal Sex Female 2:54 PM EDT Gender Identity Female 10/14/2021 3:21 PM EDT Sexual Orientation Choose not to disclose 2021 3:21 PM EDT Travel History Travel Start Travel End [place] 07/14/2024 07/22/2024 documented as of this encounter Plan of Treatment Upcoming Encounters Date Type Department Care Team (Late st Contact Info) Description 08/01/2024 1:00 PM EDT Office Visit Neurology [address] [place] [address] [place] [address] [place] [address] polyneuropathy 09/26/2024 1:30 PM EDT Infusion Center Hematology/Oncolog y [facility] [address] [facility] [place] [address] 12 week follow up with lab 09/26/2024 2:00 PM EDT Visit (SP) Office Hematology/Oncolog y [address] [place] [address] Christopher Castañeda MD [facility] [address] [facility] [place] [address] 12 week follow up [place] documented as of this encounter Visit Diagnoses Not on filedocumented in this encounter Care Teams Pigskin Trimmer Relationship Specialty Start Date End Date Naet Duval MD PCP - General Family Medicine 05/24/22 Christopher Castañeda MD [address] [facility] [place] [place] [address] Physician Hematology/Oncology 11/18/21 Miriam Nj, RN [address] [facility] [place] [address] Specialty Collection Card Clerk Hematology/Oncology 11/18/21 Dipti Toussaint APRN.SOOT BLOWER [address] [facility] [place] [address] Nurse Practitioner Hematology/Oncology 11/18/21 Shereen Arnett LSW Software Trainer 11/20/21 documented as of this encounter
--- OUTSIDE RECORDS SUMMARY | 2024-07-30 09:37 | XMS_ITS ---
Author Organization [facility] Address [address] [place] [address] Care Team Providers Care Drafter Civil (Cad) Name Role Phone Christopher Castañeda MD Unavailable [phone] Miriam Nj RN Unavailable [phone] Dipti Toussaint APRN.OPTIC FIBRE DRAWER Unavailable [phone] Shereen Arnett Unavailable Unavailable Nate Duval MD Primary Care Provider [phone] Active Problems Problem Noted Date Diagnosed Date Muscle soreness 08/02/2023 Other drug-induced neutropenia 05/02/2023 Leucopenia 04/11/2023 Platelets decreased 12/15/2022 Stage 3b chronic kidney disease 12/15/2022 Major depressive disorder, recurrent episode, mo derate 07/23/2022 Post-operative state 05/20/2022 At risk for lymphedema 05/13/2022 Obesity, Class III, BMI >= 40 03/23/2022 Primary hypertension 03/19/2022 Assessment & Plan (03/19/2022 11:05 AM EST): Assessment: Managed with med Date: BP: 03/19/2022 110/56[map 68[ 03/11/2022 120/60 Stable. HLD (hyperlipidemia) 03/19/2022 Assessment & Plan (03/19/2022 11:05 AM EST): Assessment: managed with statin Hypothyroidism 03/19/2022 Assessment & Plan (03/19/2022 11:06 AM EST): Assessment: Managed with med Stable. DMII (diabetes mellitus, type 2) 03/19/2022 Assessment & Plan (03/19/2022 11:07 AM EST): Assessment: managed with oral med and injection 02/08/2022 HgbA1c 7.5% Monitored by PCP Aortic regurgitation 03/19/2022 Assessment & Plan (03/19/2022 11:08 AM EST): Assessment: per 04/29/2021 ECHO Mild aortic regurgitation. Asymptomatic Mild intermittent asthma without complication Assessment & Plan (03/19/2022 11:08 AM EST): Assessment: reports cold weather induced, managed with Albuterol inhaler- currently using once/day Stable. RLS (restless legs syndrome) 03/19/2022 Assessment & Plan (03/19/2022 11:09 AM EST): Assessment: managed with Requip Monitored by PCP Morbid obesity 03/19/2022 Assessment & Plan (03/19/2022 11:13 AM EST): Assessment: Body mass index is 41.15 kg/m . Weight reduction encouraged. Anemia 03/19/2022 Assessment & Plan (03/19/2022 11:16 AM EST): Assessment: completed chemotherapy 02/12/2022 Follows with Hem/Onc Currently Asymptomatic updated CBC Breast cancer metastasized to axillary lymph nod e, right 03/11/2022 Malignant neoplasm of upper- outer quadrant of right breast in female, estrogen receptor positive 10/21/2021 Cancer Staging:Clinical stage from 10/21/2021:Stage IIA(cT2, cN1, cM0, G1, ER+, WY+, HER2-) - Signed by Christopher Castañeda MD on 10/27/2021 Current Treatment and Therapy Plans No current plan information found. Past Treatment and Therapy Plans NON-CHEMO 1 Plan Name Start Date Discontinue Date Treatment Medications Discontinue Reason Plan Provider Cycles AMB HYDRATION - ONCE 2 10/01/2022 No medications scheduled. Other Dayanna Alcantara PA-C 2 of 2 cycles started ONCOLOGY REGIMEN Plan Name Start Date Discontinue Date Treatment Medications Discontinue Reason Plan Provider Cycles AMB TC - DOCETAXEL 75 CYCLOPHOSPHAMIDE 600 D1 - Q21D X4 CYCLES 12/05/19 22 10/01/2022 cyclophosphamide iv piggyback (CYTOXAN)DOCEtaxel iv piggyback (TaxoTERE)palonose preeti (ALOXI)pegfilgrast im (NEULASTA ONPRO) Other Christopher Castañeda MD 4 of 6 cycles started
--- OUTSIDE RECORDS SUMMARY | 2024-07-30 09:37 | XMS_ITS | Encounter Summary ---
Author Organization [facility] Address [address] [place] [address] Care Team Providers Care Garage Helper Name Role Phone Christopher Castañeda MD Unavailable [phone] Miriam Nj RN Unavailable [phone] Dipti Toussaint APRN.LOGGER Unavailable [phone] Shereen Arnett Unavailable Unavailable Nate Duval MD Primary Care Provider [phone] Source Comments In the event this information is protected by the Federal Confidentiality of Alcohol and Drug AbusePatient Records regulations: The Federal rules restrict any use of the information to criminally investigate or prosecute any alcohol or drug abuse patient.[facility] Reason for Visit * Reason Comments Refill Request Encounter Details Date Type Department Care Team (Late st Contact Info) Description 05/22/2024 Refill Hematology/Oncology [address] [facility] [place] [address] Dayanna Alcantara PA-C [address] [facility] [place] [address] Refill Request Social History Tobacco Use Types Packs/Day Years Used Date Smoking Tobacco: Never Passive Smoke Exposure: Past Smokeless Tobacco: Never Alcohol Use Standard Drinks/Week Comments Not Currently 0 (1 standard drink = 0.6 oz pur e alcohol) 1 glass of wne a month PHQ-2 Answer Date Recorded PHQ-2 score 0 03/25/2024 Area Deprivation Index Answer Date Moshe rded National Score (1-100), lower number is lower ri sk 87 06/30/2022 State Score (1-10), lower number is lower risk 8 06/30/2022 Data from: https://www.neighborhoodatlas.medicine.[facility]/. Last address used for calculation [address] [facility] 06/30/2022 Comments No Sex and Gender Information Value Date Recorded Sex Assigned at Female 10/14/2021 3:21 PM EDT Legal Sex Female 2:54 PM EDT Gender Identity Female 10/14/2021 3:21 PM EDT Sexual Orientation Choose not to disclose 2021 3:21 PM EDT Travel History Travel Start Travel End [place] 07/14/2024 07/22/2024 documented as of this encounter Miscellaneous Notes * Telephone Encounter - Dayanna Alcantara PA-C - 05/22/2024 8:24 AM EDT Patient last seen 03/27/[address] Zuniga Dx: metastatic breast cancer Tx: is single agent Arimidex. Presicription filled. Dayanna Alcantara PA-C documented in this encounter Plan of Treatment Upcoming Encounters Date Type Department Care Team (Late st Contact Info) Description 08/01/2024 1:00 PM EDT Office Visit Neurology [address] [place] [address] [place] [address] [place], [place] [address] polyneuropathy 09/26/2024 1:30 PM EDT Infusion Center Hematology/Oncolog y [address] [place] [address] [place] [address] 12 week follow up with lab 09/26/2024 2:00 PM EDT Visit (SP) Office Hematology/Oncolog y [address] [place] [address] [place] [address] Christopher Castañeda MD [address] [place] [address] [place] [address] 12 week follow up [place] documented as of this encounter Visit Diagnoses Not on filedocumented in this encounter Care Teams Garage Helper Relationship Specialty Start Date End Date Nate Duval MD PCP - General Family Medicine 05/24/22 Christopher Castañeda MD [address] [place] [address] [place] [address] Physician Hematology/Oncology 11/18/21 Miriam Nj, HENRRY [address] [place] [address] [place] [address] Specialty Clinical Resource Manager Hematology/Oncology 11/18/21 Dipti Toussaint APRN.LOGGER [address] [place] [address] [place] [address] Nurse Practitioner Hematology/Oncology 11/18/21 Shereen Arnett LSW Automotive Machinist Apprentice 11/20/21 documented as of this encounter
--- OUTSIDE RECORDS SUMMARY | 2024-07-30 09:37 | XMS_ITS | Encounter Summary ---
Author Organization [facility] Address [address] [place] [address] Care Team Providers Care Skip Tender Name Role Phone Shaikh SHANIQUA West Primary Care Provider [phone] Christopher Castañeda MD Unavailable [phone] Miriam Nj RN Unavailable [phone] Dipti Toussaint PURCHASING INTERNSHIP.LANDING SUPPORT SPECIALIST Unavailable [phone] Shereen Arnett DIRECTOR OF CASEWORK DEPARTMENT Unavailable Unavailable Nate Duval MD Primary Care Provider [phone] Source Comments In the event this information is protected by the Federal Confidentiality of Alcohol and Drug AbusePatient Records regulations: The Federal rules restrict any use of the information to criminally investigate or prosecute any alcohol or drug abuse patient.[facility] Encounter Details Date Type Department Care Team (Late st Contact Info) Description 11/11/2021 Lab Requisition [facility] [place] [address] [place] [address] [place] [address] Person encountering health services to consult on behalf of another person Social History Tobacco Use Types Packs/Day Years Used Date Smoking Tobacco: Never Passive Smoke Exposure: Past Smokeless Tobacco: Never Alcohol Use Standard Drinks/Week Comments Yes 0 (1 standard drink = 0.6 oz pur e alcohol) Comments No Sex and Gender Information Value Date Recorded Sex Assigned at Female 10/14/2021 3:21 PM EDT Legal Sex Female 2:54 PM EDT Gender Identity Female 10/14/2021 3:21 PM EDT Sexual Orientation Choose not to disclose 2021 3:21 PM EDT Travel History Travel Start Travel End [place] 07/14/2024 07/22/2024 COVID-19 Exposure Response Date Recorded In the last 10 days, have yo u been in contact with someone who was confirmed or suspected to have Coronavirus/COVID-19? No / Unsure 11/12/2021 7:39 AM EDT documented as of this encounter Plan of Treatment Upcoming Encounters Date Type Department Care Team (Late st Contact Info) Description 08/01/2024 1:00 PM EDT Office Visit Neurology [address] [place] [address] [place] [address] [place] [address] polyneuropathy 09/26/2024 1:30 PM EDT Infusion Center Hematology/Oncolog y [address] [place] [address] 12 week follow up with lab 09/26/2024 2:00 PM EDT Visit (SP) Office Hematology/Oncolog y [address] [place] [address] Christopher Castañeda MD [address] [place] [address] 12 week follow up PORT documented as of this encounter Procedures Procedure Name Priority Date/Time Associated Diagnosis Comments OUTSIDE SURG PATH SLIDE REVIEW Routine 11/11/2021 9:13 AM EDT Person encountering health services to consult on behalf of another person documented in this encounter Results * OUTSIDE SURG PATH SLIDE REVIEW (11/11/2021 9:13 AM EDT) Case Report Surgical Pathology Report Case: [id number] Authorizing Provider: Margoth Rowan MD Collected: 11/11/2021 09:13 AM [facility] Received: 11/11/2021 09:10 AM Pathologist: Ej Estevez MD Specimen: SLIDE(S), 32 SLIDES ([id number]) 11/11/2021 11:56 AM EDT [facility] FINAL DIAGNOSIS Breast, right, at 12:00, 7 cm from the nipple, ultrasound-guided core biopsy ([id number], part A; 10/02/2021): ---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 ---Please see comment. Lymph node, right axillary tail, ultrasound-guided core biopsy ([id number], part B; 10/02/2021): ---Metastatic mammary carcinoma with signet ring features, measuring at least 13 mm in greatest dimension, likely representing a lymph node completely replaced by carcinoma. ---Please see comment. 11/11/2021 11:56 AM EDT [facility] at 1156 EDT Diagnosis Comment Immunoperoxidase studies for keratin CAM 5.2 and E-cadherin were performed on sections from both the right breast invasive carcinoma ([id number], part A) as well as the right axillary tail metastasis ([id number], part B). The neoplastic cells in both biopsies are positive for keratin CAM 5.2 and demonstrate strong, circumferential E-cadherin expression. These, results, in conjunction with the morphology, support the above diagnoses. -- Additional immunoperoxidase studies for estrogen receptor (ER), progesterone receptor (MS), and HER2 were performed on both the right breast core biopsy and right axillary tail metastasis. Immunostain results for the carcinoma cells are as follows: Right breast invasive carcinoma: ER: POSITIVE (100%, strong) MS: POSITIVE (100%, strong) HER2 IHC: NEGATIVE (0) Controls react as expected Right axillary tail metastasis: ER: POSITIVE (100%, strong) MS: POSITIVE (100%, strong) HER2 IHC: NEGATIVE (0) Controls react as expected 11/11/2021 11:56 AM EDT [facility] Performing Lab Diagnostic interpretation performed at [address] [id number] Derrick Barge Operator: Lucien Mays M.D. 11/11/2021 11:56 AM EDT [facility] Blocks or Slides MICROSCOPE SLIDE / Unknown 11/11/2021 9:13 AM EDT 11/11/2021 9:10 AM EDT us Margoth Rowan MD SURGICAL PATHOLOGY Final Resul t [facility] [address] [place] [address] documented in this encounter Visit Diagnoses Diagnosis Person encountering health services to consult on behalf of another person Other person consulting on behalf of another person documented in this encounter Care Teams Skip Tender Relationship Specialty [place] [address] [place] [address] PCP - General Primary Care 10/21/21 05/23/22 Nate Duval MD PCP - General Family Medicine 05/24/22 Christopher Castañeda MD [address] [place] [address] [place] [address] Physician Hematology/Oncology 11/18/21 Miriam Nj, HENRRY [address] [place] [address] [place] [address] Specialty Drop Forge Hand Hematology/Oncology 11/18/21 Dipti Toussaint APRN.[facility] [address] [place] [address] [place] [address] Nurse Practitioner Hematology/Oncology 11/18/21 Shereen Arnett LSW Factory Supervisor 11/20/21 documented as of this encounter
--- OUTSIDE RECORDS SUMMARY | 2024-07-30 09:37 | XMS_ITS | Encounter Summary ---
Author Organization [facility] Address [address] [place] [address] Care Team Providers Care Tactical Response Group Officer Name Role Phone Christopher Castañeda MD Unavailable [phone] Miriam Nj RN Unavailable [phone] Dipti Toussaint GIVING OFFICER.SERVICE WRITER Unavailable [phone] Shereen Arnett Unavailable Unavailable Nate Duval MD Primary Care Provider [phone] Source Comments In the event this information is protected by the Federal Confidentiality of Alcohol and Drug AbusePatient Records regulations: The Federal rules restrict any use of the information to criminally investigate or prosecute any alcohol or drug abuse patient.[facility] Reason for Visit * Reason Comments Refill Request Encounter Details Date Type Department Care Team (Late st Contact Info) Description 09/29/2023 Refill Hematology/Oncology [address] [place] [address] Dipti Toussaint APRN.SERVICE WRITER [address] [facility] [place] [address] Refill Request Social History Tobacco Use [...] is lower risk 8 06/30/2022 Data from: https://www.neighborhoodatlas.medicine.[facility]/. Last address used for calculation [address] [facility] 06/30/2022 Comments No Sex and Gender Information Value Date Recorded Sex Assigned at Female 10/14/2021 3:21 PM EDT Legal Sex Female 2:54 PM EDT Gender Identity Female 10/14/2021 3:21 PM EDT Sexual Orientation Choose not to disclose 2021 3:21 PM EDT Travel History Travel Start Travel End [place] 07/14/2024 07/22/2024 documented as of this encounter Plan of Treatment Upcoming Encounters Date Type Department Care Team (Late st Contact Info) Description 08/01/2024 1:00 PM EDT Office Visit Neurology [address] [place] [address] [place] [address] [place] [address] polyneuropathy 09/26/2024 1:30 PM EDT Infusion Center Hematology/Oncolog y [facility] [place] [address] 12 week follow up with lab 09/26/2024 2:00 PM EDT Visit (SP) Office Hematology/[place] [address] Christopher Castañeda MD [address] [place] [address] 12 week follow up PORT documented as of this encounter Visit Diagnoses Not on filedocumented in this encounter Care Teams Tactical Response Group Officer Relationship Specialty Start Date End Date Nate Duval MD PCP - General Family Medicine 05/24/22 Christopher Castañeda MD [address] [place] [address] [place] [address] Physician Hematology/Oncology 11/18/21 Miriam Nj, EHNRRY [address] [place] [address] [place] [address] Specialty Html Developer Hematology/Oncology 11/18/21 Dipti Toussaint APRN.SERVICE WRITER [address] [place] [address] [place] [address] Nurse Practitioner Hematology/Oncology 11/18/21 Shereen Arnett LSW Industrial X Ray Operator 11/20/21 documented as of this encounter
--- OUTSIDE RECORDS SUMMARY | 2024-07-30 09:37 | XMS_ITS | Encounter Summary ---
Author Organization [facility] Address [address] [place] [address] Care Team Providers Care Photolithographic Stripper Name Role Phone Shaikh SHANIQUA West Primary Care Provider [phone] Christopher Castañeda MD Unavailable [phone] Miriam Nj RN Unavailable [phone] Dpiti Toussaint APRN.VISUAL MERCHANDISE MANAGER Unavailable [phone] Shereen Arnett Unavailable Unavailable Nate Duval MD Primary Care Provider [phone] Source Comments In the event this information is protected by the Federal Confidentiality of Alcohol and Drug AbusePatient Records regulations: The Federal rules restrict any use of the information to criminally investigate or prosecute any alcohol or drug abuse patient.[facility] Encounter Details Date Type Department Care Team (Latest Contact Info) Description 10/15/2021 H&P External-NonCCF Provider, External, PA-C Do not enter address information under generic External Provider. Social History Tobacco Use Types Packs/Day Years Used Date Smoking Tobacco: Never Assessed Comments Unknown Sex and Gender Information Value Date Recorded Sex Assigned at Female 10/14/2021 3:21 PM EDT Legal Sex Female 2:54 PM EDT Gender Identity Female 10/14/2021 3:21 PM EDT Sexual Orientation Choose not to disclose 2021 3:21 PM EDT Travel History Travel Start Travel End [place] 07/14/2024 07/22/2024 documented as of this encounter Plan of Treatment Upcoming Encounters Date Type Department Care Team (Late st Contact Info) Description 08/01/2024 1:00 PM EDT Office Visit Neurology [address] [place] [address] [place] [address] [place] [address] polyneuropathy 09/26/2024 1:30 PM EDT Infusion Center Hematology/Oncolog y [address] [place] [address] 12 week follow up with lab 09/26/2024 2:00 PM EDT Visit (SP) Office Hematology/Oncolog y [address] [facility] [place] [address] Christopher Castañeda MD [address] [place], [place] [address]RY [facility] [place] [address] 12 week follow up PORT documented as of this encounter Visit Diagnoses Not on filedocumented in this encounter Care Teams Photolithographic Stripper Relationship Specialty Start Date End Date Shaikh West MD [address] [place] [address] PCP - General Primary Care 10/21/21 05/23/22 Nate Duval MD PCP - General Family Medicine 05/24/22 Christopher Castañeda MD [address] [facility] [place] [address] Physician Hematology/Oncology 11/18/21 Miriam Nj, RN [address] [place] [address] [place] [address] Specialty Milling Machine Set Up Operator Hematology/Oncology 11/18/21 Dipti Toussaint APRN.VISUAL MERCHANDISE MANAGER [address] [facility] [place] [address] Nurse Practitioner Hematology/Oncology 11/18/21 Shereen Arnett LSW Ambulance Attendant 11/20/21 documented as of this encounter
--- OUTSIDE RECORDS SUMMARY | 2024-07-30 09:37 | XMS_ITS | Encounter Summary ---
Author Organization [facility] Address [address] [place] [address] Care Team Providers Care Tube Mounter Name Role Phone Shaikh SHANIQUA West Primary Care Provider [phone] Christopher Castañeda MD Unavailable [phone] Miriam Nj RN Unavailable [phone] Dipti Toussaint APRN.MACHINE SETTER Unavailable [phone] Shereen Arnett Unavailable Unavailable Nate Duval MD Primary Care Provider [phone] Source Comments In the event this information is protected by the Federal Confidentiality of Alcohol and Drug AbusePatient Records regulations: The Federal rules restrict any use of the information to criminally investigate or prosecute any alcohol or drug abuse patient.[facility] Encounter Details Date Type Department Care Team (Late st Contact Info) Description 03/29/2022 [place] [address] Provider, C[facility] Please Schedule Colonoscopy/Endoscopy Appointment Social History Tobacco Use Types Packs/Day Years [...] N ot on file 03/15/2022 Data from: https://www.neighborhoodatlas.medicine.[facility]/. Last address used for calculation [address] [facility] 03/15/2022 Comments No Sex and Gender [...] 08/01/2024 1:00 PM EDT Office Visit Neurology [address] [place] [address] [place] [address] [place] [address] polyneuropathy 09/26/2024 1:30 PM EDT Infusion Center Hematology/Oncolog y [address] [facility] [place] [place] [address] 12 week follow up with lab 09/26/2024 2:00 PM EDT Visit (SP) Office Hematology/Oncolog y [address] [facility] [place] [place] [address] Christopher Castañeda MD [address] [facility] [place] [address] 12 week follow up PORT documented as of this encounter Visit Diagnoses Not on filedocumented in this encounter Care Teams Tube Mounter Relationship Specialty Start Date End Date Shaikh [place] MD [facility] [place] [address] PCP - General Primary Care 10/21/21 05/23/22 Nate Duval MD PCP - General Family Medicine 05/24/22 Christopher Castañeda MD [address] [facility] [place] [address] Physician Hematology/Oncology 11/18/21 Miriam Nj, HENRRY [address] [facility] [place] [address] Specialty Credit Card Control Clerk Hematology/Oncology 11/18/21 Dipti Toussaint APRN.MACHINE SETTER [address] [facility] [place] [address] Nurse Practitioner Hematology/Oncology 11/18/21 Shereen Arnett LSW Electronics Processor 11/20/21 documented as of this encounter
--- OUTSIDE RECORDS SUMMARY | 2024-07-30 09:37 | XMS_ITS | Encounter Summary ---
Author Organization [facility] Address [address] [place] [address] Care Team Providers Care Plate Maker Name Role Phone Shaikh SHANIQUA West Primary Care Provider [phone] Christopher Castañeda MD Unavailable [phone] Miriam Nj RN Unavailable [phone] Dipti Toussaint APRN.DRAFTER DIRECTIONAL SURVEY Unavailable [phone] Shereen Arnett Unavailable Unavailable Nate Duval MD Primary Care Provider [phone] Source Comments In the event this information is protected by the Federal Confidentiality of Alcohol and Drug AbusePatient Records regulations: The Federal rules restrict any use of the information to criminally investigate or prosecute any alcohol or drug abuse patient.[facility] Encounter Details Date Type Department Care Team (Late st Contact Info) Description 03/19/2022 Abstract Gastroenterology [address] [address] [place] [address] [place] [address] Social History Tobacco Use Types Packs/Day Years Used Date Smoking Tobacco: Never Passive Smoke Exposure: Past Smokeless Tobacco: Never Alcohol Use Standard Drinks/Week Comments Yes 1 (1 standard drink = 0.6 oz pur e alcohol) PHQ-2 Answer Date Recorded PHQ-2 score 2 11/16/2021 Area Deprivation Index Answer Date Moshe rded National Score (1-100), lower number is lower ri sk 74 03/15/2022 State Score (1-10), lower number is lower risk N ot on file 03/15/2022 Data from: https://www.neighborhoodatlas.medicine.[facility]/. Last address used for calculation [address] [facility] 03/15/2022 Comments No Sex and Gender Information Value Date Recorded Sex Assigned at Female 10/14/2021 3:21 PM EDT Legal Sex Female 2:54 PM EDT Gender Identity Female 10/14/2021 3:21 PM EDT Sexual Orientation Choose not to disclose 2021 3:21 PM EDT Travel History Travel Start Travel End [place] 07/14/2024 07/22/2024 documented as of this encounter Plan of Treatment Upcoming Encounters Date Type Department Care Team (Late st Contact Info) Description 08/01/2024 1:00 PM EDT Office Visit Neurology [address] [place] [address] [place] [address] [place] [address] polyneuropathy 09/26/2024 1:30 PM EDT Infusion Center Hematology/Oncolog y [facility] [place] [address] 12 week follow up with lab 09/26/2024 2:00 PM EDT Visit (SP) Office Hematology/Oncolog y [address] [place] [address] Christopher Castañeda MD [address] [place] [address] 12 week follow up PORT documented as of this encounter Visit Diagnoses Not on filedocumented in this encounter Care Teams Plate Maker Relationship Specialty Start Date End Date Shaikh West MD [address] [place] [address] PCP - General Primary Care 10/21/21 05/23/22 Nate Duval MD PCP - General Family Medicine 05/24/22 Christopher Castañeda MD [address] [place] [address] [place] [address] Physician Hematology/Oncology 11/18/21 Miriam Nj, HENRRY [address] [place] [address] [place] [address] Specialty Interventional Pain Physician Hematology/Oncology 11/18/21 Dipti Toussaint APRN.DRAFTER DIRECTIONAL SURVEY [address] [place] [address] [place] [address] Nurse Practitioner Hematology/Oncology 11/18/21 Shereen Arnett LSW Bander 11/20/21 documented as of this encounter
--- OUTSIDE RECORDS SUMMARY | 2024-07-30 09:37 | XMS_ITS | Clinical Summary ---
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 3 Active anastrozole (Arimidex) 1 MG chemo tablet Take 1 mg by mouth. 3 Active atorvastatin (Lipitor) 40 MG tablet See Instructions, TAKE 1 TABLET BY MOUTH EVERY DAY, # 90 tab(s), Refills(s) 1, Pharmacy: [facility]/pharmacy #[id number], 158, cm, 12/05/23 8:14:00 EDT, Height/Length Dosing, 97.7, kg, 12/05/23 8:14:00 EDT, Weight Dosing 3 Active carvedilol (Coreg) 25 MG tablet See Instructions, TAKE 1 TABLET BY MOUTH TWICE A DAY, # 180 tab(s), Refills(s) 1, Pharmacy: [facility]/pharmacy #[id number], 158, cm, 12/05/23 8:14:00 EDT, Height/Length Dosing, 97.7, kg, 12/05/23 8:14:00 EDT, Weight Dosing 3 Active CeleBREX 100 MG capsule Take 100 mg by mouth 3 Active levothyroxine (Synthroid, Levoxyl) 50 MCG tablet See Instructions, TAKE 1 TABLET BY MOUTH EVERY DAY, # 90 tab(s), Refills(s) 1, [id number], cm, 12/05/23 8:14:00 EDT, Height/Length Dosing, 97.7, kg, 12/05/23 8:14:00 EDT, Weight Dosing 3 Active loratadine (Claritin) 10 MG tablet See Instructions, TAKE 1 TABLET BY MOUTH EVERY DAY, # 90 tab(s), Refills(s) 1, [id number], 158, cm, 12/05/23 8:14:00 EDT, Height/Length Dosing, 97.7, kg, 12/05/23 8:14:00 EDT, Weight Dosing 4 Active magnesium oxide 500 MG tablet Take 500 mg by mouth in the morning. Active metFORMIN (Glucophage) 1000 MG tablet See Instructions, TAKE 1 TABLET BY MOUTH TWICE A DAY, # 180 tab(s), Refills(s) 1, [id number], 158, cm, 12/05/23 8:14:00 EDT, Height/Length Dosing, 97.7, kg, 12/05/23 8:14:00 EDT, Weight Dosing 3 Active Naproxen Sodium (ALEVE PO) Take by mouth 4 Active rOPINIRole (Requip) 0.25 MG tablet Take 0.25 mg by mouth at bedtime 3 Active tiZANidine (Zanaflex) 4 MG capsule See Instructions, TAKE 1 CAPSULE BY MOUTH 3 TIMES A DAY NEEDED FOR HEADACHE, # 270 cap(s), Refills(s) 1, Pharmacy: [facility] STORE [id number], 158, cm, 12/05/23 8:14:00 EDT, Height/Length Dosing, 97.7, kg, 12/05/23 8:14:00 EDT, Weight Dosing 4 Active Symbicort 160-4.5 MCG/ACT inhaler Inhale 2 puffs in the morning and 2 puffs before bedtime. 4 Active Ozempic, 0.25 or 0.5 MG/DOSE, 2 MG/3ML solution pen-injector INJECT 0.25 MG SUBCUTANEOUSLY WEEKLY 5 Active Active Problems Problem Noted Date Diagnosed Date Acute URI 05/03/2024 Class 3 obesity 05/03/2024 Diabetic nephropathy 05/03/2024 Encounter for surveillance of abnormal nevi 07/2024 Folliculitis 05/03/2024 Hair loss 05/03/2024 HTN (hypertension), benign 05/03/2024 Knee pain, right 05/03/2024 Malignant neoplasm of female breast 05/03/2024 Non-smoker 05/03/2024 Numbness in both hands 05/03/2024 Osteoarthritis 05/03/2024 Osteopenia 05/03/2024 Reactive airway disease 05/03/2024 Seasonal allergies 05/03/2024 Shortness of breath 05/03/2024 Shoulder pain, right 05/03/2024 SK (seborrheic keratosis) 05/03/2024 Leucopenia 04/11/2023 Platelets decreased 12/15/2022 Stage 3b chronic kidney disease (HCC) 12/15/2022 Post-operative state 05/20/2022 At risk for lymphedema 05/13/2022 Anemia 03/19/2022 DMII (diabetes mellitus, type 2) 03/19/2022 Overview (05/03/2024): linked DM with HLD per OP CDI policy. Hypothyroidism 03/19/2022 Mild intermittent asthma without complication HLD (hyperlipidemia) 03/19/2022 Morbid obesity 03/19/2022 RLS (restless legs syndrome) 03/19/2022 Breast cancer metastasized to axillary lymph nod e, right 03/11/2022 Encounters Date Type Department Care Team Description 05/28/2024 9:40 AM EDT Office Visit [facility] [address] [place] [address] Cathryn Nino MD Asymmetric SNHL (sensorineural hearing loss) (Primary Dx); Right-sided tinnitus 05/28/2024 Bamboo flowsheet [facility] [address] [place] [id number] Cathryn Nino MD 05/28/2024 Travel 05/16/2024 10:30 AM EDT Ancillary Procedure [facility] [address] [place] [id number] Asymmetric SNHL (sensorineural hearing loss); Right-sided tinnitus 05/16/2024 Travel 05/13/2024 Travel 05/07/2024 10:00 AM EDT Office Visit [facility] [address] [place] [id number] Cathryn Nino MD Asymmetric SNHL (sensorineural hearing loss) (Primary Dx); Right-sided tinnitus; Benign neoplasm of middle ear 05/07/2024 Bamboo flowsheet [facility] [address] [place] [id number] Cathryn Nino MD 05/07/2024 Travel 05/06/2024 Travel 05/04/2024 10:00 AM EST Clinical Support [facility] [address] [place] [address] Suze Arrieta CCC-A Asymmetrical sensorineural hearing loss (Primary Dx); Tinnitus, bilateral 05/04/2024 Bamboo flowsheet [facility] [address] [place] [address] Suze Arrieta CCC-A 05/04/2024 Travel from Last 3 Months Family History Medical History Relation Name Comments Heart failure Father Cancer Mother Melanoma Neg Hx Relation Name Status Comments Father Mother Social History Tobacco Use Types Packs/Day Years Used Date Smoking Tobacco: Never Smokeless Tobacco: Never Tobacco Cessation:Counseling Given: Not Answered Alcohol Use Standard Drinks/Week Comments Yes 1 (1 standard drink = 0.6 oz pur e alcohol) 1 glass a month Comments Unknown Sex and Gender Information Value Date Recorded Sex Assigned at Not on file Legal Sex Female 11:25 AM EDT Gender Identity Not on file Sexual Orientation Not on file Last Filed Vital Signs Vital Sign Reading Time Taken Comments Blood Pressure 146/73 05/28/2024 8:51 AM EDT Pulse 73 05/28/2024 8:51 AM EDT Temperature - - Respiratory Rate - - Oxygen Saturation - - Inhaled Oxygen Concentration - - Weight 99.8 kg (220 lb) 05/28/2024 8:51 AM EDT Height 157.5 cm (5' 2 ) 05/28/2024 8:51 AM EDT Body Mass Index 40.24 05/28/2024 8:51 AM EDT Plan of Treatment Health Maintenance Due Date Last Done Comments CT Colonography 1953 FIT-DNA 1953 FIT 1953 FOBT 1955 Sigmoidoscopy 1955 Mammogram 10/09/2024 10/10/2023, 09/28, 12/01/2021, Additional history exists Colonoscopy 05/24/2032 05/24/2022, 05/24/2022 Colorectal Cancer Screening 05/24/2032 Pneumococcal Vaccine: 65+ Years Completed 02/24/2023, 12/13/2017, 03/23/2016 Influenza Vaccine Completed 03/06/2024, , 02/09/2023, Additional history exists Procedures Procedure Name Priority Date/Time Associated Diagnosis Comments MR BRAIN W AND WO CONTRAST (IACS) Routine 05/16/2024 11:34 AM EDT Asymmetric SNHL (sensorineural hearing loss) Right-sided tinnitus AUDITORY FUNCTION TESTS Routine 05/04/2024 10:16 AM EST from Last 3 Months Results * MR brain w and wo contrast IACs (05/16/2024 11:34 AM EDT) Anatomical Region Laterality Modality Brain Magnetic Resonan ce 05/16/2024 12:4 4 PM EDT Narrative 05/16/2024 12:44 PM EDT TITLE OF EXAM: MR BRAIN W AND WO CONTRAST (IACS) REASON FOR EXAM: Bilateral tinnitus for years, right sided hearing loss TECHNIQUE: Multisequence, multiplanar MRI of the brain prior to and following the intravenous administration of 7.5 cc Vueway COMPARISON: None. FINDINGS: Brain and intracranial structures: The ventricles, cisterns, and sulci are symmetric and normal in volume/caliber for age. No significant parenchymal signal abnormality. No abnormal parenchymal or meningeal enhancement. No mass lesion, hemorrhage, or acute infarct. Cerebellopontine angles and temporal bones: No mass or abnormal enhancement in the cerebellopontine angles or internal auditory canals. The vestibules, cochlea, and semicircular canals demonstrate normal morphology, size, and signal. No significant fluid in the tympanic cavities. Normal evaluable trigeminal nerves. Skull/scalp: Normal. Orbits and face (included portions): Normal. Paranasal sinuses and mastoid air cells (included portions): Clear. IMPRESSION: 1. No mass or other abnormality of the IACs, cerebellopontine angles, or labyrinthine structures. No findings to explain the patient's reported right-sided hearing loss and tinnitus. 2. No acute intracranial abnormality. DICTATED ON: 05/16/2024 10:38 AM This report has been electronically signed and approved by the interpreting radiologist. Procedure Note Reuben Mary MD - 05/16/2024 TITLE OF EXAM: MR BRAIN W AND WO CONTRAST (IACS) REASON FOR EXAM: Bilateral tinnitus for years, right sided hearingloss TECHNIQUE: Multisequence, multiplanar MRI of the brain prior to andfollowing the intravenous administration of 7.5 cc Vueway COMPARISON: None. FINDINGS: Brain and intracranial structures: The ventricles, cisterns, and sulci aresymmetric and normal in volume/caliber for age. No significantparenchymal signal abnormality. No abnormal parenchymal or meningealenhancement. No mass lesion, hemorrhage, or acute infarct. Cerebellopontine angles and temporal bones: No mass or abnormalenhancement in the cerebellopontine angles or internal auditory canals.The vestibules, cochlea, and semicircular canals demonstrate normalmorphology, size, and signal. No significant fluid in the tympaniccavities. Normal evaluable trigeminal nerves. Skull/scalp: Normal. Orbits and face (included portions): Normal. Paranasal sinuses and mastoid air cells (included portions): Clear. IMPRESSION: 1. No mass or other abnormality of the IACs, cerebellopontine angles, orlabyrinthine structures. No findings to explain the patient's reportedright-sided hearing loss and tinnitus. 2. No acute intracranial abnormality. DICTATED ON: 05/16/2024 10:38 AM This report has been electronically signed and approved by theinterpreting radiologist. us Cathryn Nino MD IMG MRI PROCEDURES Final Resu lt * Auditory function tests (05/04/2024 10:16 AM EST) Narrative Meenakshi, Suze Dorsey, CCC-A - 05/04/2024 10:16 AM EST Right Ear: Mild to severe sensorineural hearing loss above 2K Hz Left Ear: Mild to moderate sensorineural hearing loss above 3K Hz us Suze Arrieta CCC-A [employer]OLOGY [employer] ORDERA BLES Final Result from Last 3 Months Insurance MEDICARE [facility] Care Teams Church History Teacher Relationship Specialty Start Date End Date Nate Duval MD [address] [place] [address] PCP - General Family Medicine 03/07/24
--- OUTSIDE RECORDS SUMMARY | 2024-07-30 09:37 | XMS_ITS | Clinical Summary ---
Author Organization [facility] Address [address] [place] [id number] Care Team Providers Care Emergency Generator Mechanic Name Role Phone Christopher Castañeda MD Unavailable [phone] Miriam Nj RN Unavailable [phone] Dipti Toussaint APRN.COOK BOAT Unavailable [phone] Shereen Arnett Unavailable Unavailable Nate Duval MD Primary Care Provider [phone] Allergies Active Allergy Reactions Criticality Noted Date Comments Lisinopril Unknown 08/04/2006 Seasonal Allergies Itching,Other: See Comments 04/15/2017 Medications acetaminophen (TYLENOL) 325 mg tablet Take 650 mg by mouth every 6 hours as needed. Active amLODIPine (NORVASC) 10 mg tablet Take 10 mg by mouth once daily. Active levothyroxine sodium (LEVOTHYROXINE ORAL) Take 50 mcg by mouth once daily. Active rOPINIRole (REQUIP) 0.25 mg tablet Take 0.25 mg by mouth daily at bedtime. Active atorvastatin (LIPITOR) 40 mg tablet Take 40 mg by mouth once daily. 2 Active metFORMIN (GLUCOPHAGE) 1,000 mg tablet Metformin Active 1000 MG PO Every morning May 04, 2021 3:24pm 2 Active carvedilol (COREG) 25 mg tablet Take 25 mg by mouth twice daily. 2 Active albuterol HFA (PROVENTIL HFA, VENTOLIN HFA) 90 mcg/actuation inhaler INHALE 2 PUFFS 4 TIMES PER DAY NEEDED FOR SHORTNESS OF BREATH OR WHEEZING 2 Active celecoxib (CELEBREX) 100 mg capsule Take 100 mg by mouth twice daily. 3 Active SYMBICORT 160-4.5 mcg/actuation inhaler Inhale 2 Puffs as instructed two times a day. 4 Active multivit-min/i boris/FA/vit K/lut (CENTRUM SILVER WOMEN ORAL) Take by mouth once daily. Over 50 Active Magnesium Oxide 500 mg magnesium tab Take 500 mg by mouth once daily. Active anastrozole (ARIMIDEX) 1 mg tablet TAKE 1 TABLET BY MOUTH ONCE DAILY. 90 tablet 1 5 Active semaglutide (OZEMPIC) 1 mg/dose (4 mg/3 mL) pen Inject 1 mg subcutaneously one time a week. Active tiZANidine HCl (ZANAFLEX) 4 mg capsule TAKE 1 CAPSULE BY MOUTH 3 TIMES A DAY NEEDED FOR HEADACHE Active fluticasone (FLONASE) 50 mcg/actuation nasal spray USE 2 SPRAYS IN EACH NOSTRIL ONCE A DAY 5 Active Active Problems Problem Noted Date [...] from 10/21/2021:Stage IIA(cT2, cN1, cM0, G1, ER+, VT+, HER2-) - Signed by Christopher Castañeda MD on 10/27/2021 Encounters Date Type Department Care Team Description 07/25/2024 Travel 06/20/2024 11:00 AM EDT Visit (SP) Office Hematology/Oncology [address] [place] [address] [place] [address] Christopher Castañeda MD Malignant neoplasm of upper-outer quadrant of right breast in female, estrogen receptor positive (HCC) (Primary Dx); Breast cancer metastasized to axillary lymph node, right (HCC); Other polyneuropathy; Type 2 diabetes mellitus with diabetic neuropathy, unspecified whether fdc insulin use (HCC); Chemotherapy-induced peripheral neuropathy (HCC); Major depressive disorder, recurrent episode, moderate (HCC) 06/20/2024 10:30 AM EDT Infusion Center Hematology/Oncology [address] [place] [address] [place] [address] Malignant neoplasm of upper-outer quadrant of right breast in female, estrogen receptor positive (HCC); Breast cancer metastasized to axillary lymph node, right (HCC) 06/20/2024 Travel 06/13/2024 Travel 05/22/2024 Refill Hematology/Oncology [address] [place] [address] [place] [address] Dayanna Alcantara, PAMeaganC Refill Request from Last 3 Months Immunizations Immunization Administration Dates Next Due COVID-19 original vaccine, f ull dose, monovalent (MODERNA) 01/14/2021,08/05/2020,07/08/2020,04/16 influenza (HD-IIV3) vaccine, age 65+ yr, high dose, trivalent, PF (FLUZONE HIGH-DOSE) 03/06/2024 influenza (HD-IIV4) vaccine, age 65+ yr, high dose, quadrivalent, PF (FLUZONE HIGH-DOSE) 01/15/2022 influenza (IIV4) vaccine, ag e 6 mo - 64 yr, quadrivalent, PF (AFLURIA, FLUARIX, FLULAVAL, FLUZONE) 12/13/2017 influenza (LAIV) vaccine, na marquez, unspecified formulation 10/29/2016,03/21/2013 influenza (aIIV4) vaccine, a ge 65+ yr, quadrivalent, PF (FLUAD QUAD) 02/09/2023 influenza vaccine, unspecifi ed formulation 02/09/2023,02/09/2023,10/29/2016,03/21 pneumococcal conjugate (PCV1 3) vaccine, 13 valent (PREVNAR 13) 03/23/2016 pneumococcal conjugate (PCV2 0) vaccine, 20 valent (PREVNAR 20) 02/24/2023 pneumococcal polysaccharide (PPV23) vaccine, 23 valent (PNEUMOVAX 23) 12/13/2017 respiratory syncytial virus (RSV) vaccine, adjuvanted (AREXVY) 02/24/2023 tetanus diphtheria (Td) vacc ine, adult, unspecified formulation 07/04/1997 tetanus diphtheria pertussis (Tdap) vaccine, age 7+ yr (ADACEL, BOOSTRIX) 03/31/2014,07/08/2008 zoster (ZVL) vaccine, live (ZOSTAVAX) 09/10/2016 Family History Medical History Relation Comments Cancer Brother brain Cervical Cancer Daughter 1 Lymphoma Daughter 2 Heart disease Father Hypertension Father Cancer Mother lung Hypertension Mother Cancer Sister Relation Status Comments Brother Daughter 1 Alive Daughter 2 Alive Father Mother Sister Social History Tobacco Use Types Packs/Day Years Used Date Smoking Tobacco: Never Passive Smoke Exposure: Past Smokeless Tobacco: Never Tobacco Cessation:Counseling Given: Not Answered Alcohol Use Standard Drinks/Week Comments Not Currently 0 (1 standard drink = 0.6 oz pur e alcohol) 1 glass of wne a month PHQ-2 Answer Date Recorded PHQ-2 score 0 06/18/2024 Area Deprivation Index Answer Date Moshe rded National Score (1-100), lower number is lower ri sk 87 06/30/2022 State Score (1-10), lower number is lower risk 8 06/30/2022 Data from: https://www.neighborhoodatlas.medicine.[facility].edu/. Last address used for calculation [address] 06/30/2022 Comments No Sex and Gender Information Value Date Recorded Sex Assigned at Female 10/14/2021 3:21 PM EDT Legal Sex Female 2:54 PM EDT Gender Identity Female 10/14/2021 3:21 PM EDT Sexual Orientation Choose not to disclose 2021 3:21 PM EDT Travel History Travel Start Travel End [place] 07/14/2024 07/22/2024 Last Filed Vital Signs Vital Sign Reading Time Taken Comments Blood Pressure 136/71 06/20/2024 10:40 AM EDT Pulse 67 06/20/2024 10:40 AM EDT Temperature 36.3 C (97.3 F) 06/20/2024 10:40 AM EDT Respiratory Rate 18 06/20/2024 10:40 AM EDT Oxygen Saturation 97% 06/20/2024 10:40 AM EDT Inhaled Oxygen Concentration - - Weight 97.7 kg (215 lb 6.2 oz) 06/20/2024 10:40 AM EDT Height 157.5 cm (5' 2.01 ) 06/20/2024 10:40 AM E DT Body Mass Index 39.39 06/20/2024 10:40 AM EDT Plan of Treatment Upcoming Encounters Date Type Department Care Team (Late st Contact Info) Description 08/01/2024 1:00 PM EDT Office Visit Neurology [address] [place] [address] [place] [address] [place], [place] [id number] polyneuropathy 09/26/2024 1:30 PM EDT Infusion Center Hematology/Oncolog y [address] [place] [address] 12 week follow up with lab 09/26/2024 2:00 PM EDT Visit (SP) Office Hematology/Oncolog y [address] [place] [address] Christopher Castañeda MD [address] [place] [address] 12 week follow up [facility] Maintenance Due Date Last Done Comments Diabetic Foot Exam 1963 Dilated Retinal Exam 1963 Urine Albumin:Creatinine Ratio 1963 Cervical Cancer Screening 1964 Annual PCP Team Chronic Dise ase Visit 1971 Anxiety Screening 1971 BP Controlled (<130/80) [address] Ch[address] Colonography 1998 Cologuard (FIT-DNA) 1998 Fecal Occult Blood 1998 Sigmoidoscopy 1998 Shingrix Vaccine (1 of 2) 11/05/2016 09/10/2016 Bone Density Screening 2018 HbA1C 01/23/2023 07/23/2022 Covid-19 Vaccine (2023-03 5 season) 2023 02/09/2023, 11/24/2021, 04/16/2021, Additional history exists Advance Directive Discussion 02/29/2024 DTaP,Tdap,Td Vaccine (3 - Td or Tdap) 03/31/2024 03/31/2014, 07/08/2008, 07/04/1997 Mammogram Screening 10/09/2024 10/10/2023, 10/07/2022, 10/07/2022 Serum Creatinine 06/20/2025 06/20/2024, , 02/13/2024, Additional history exists Colonoscopy 05/24/2032 05/24/2022 Colorectal Cancer Screening 05/24/2032 Hepatitis C Screening Completed 07/23/2022 Pneumococcal Vaccine: 50+ Completed 2022, 12/13/2017, 03/23/2016 RSV Vaccine Completed 02/24/2023 Influenza Vaccine Completed 03/06/2024, , 02/09/2023, Additional history exists Medical Devices Implanted Type Area C Software Developer Device Identifier Shelf Expiration Date Model / Serial / Lot Power Port-11/05/2021 Implanted: [id number] (Quantity not on file) Port Chest Yuliya Gate Manager Reflector Implanted:Qty: 1 on 12/01/2021 at [facility] Right: Axilla 10/14/2024 / / [id number] Description:Yuliya chemical laboratory chief refle ctor Yuliya Gate Manager Reflector Implanted:Qty: 1 on 12/01/2021 at [facility] Right: Breast 10/14/2024 / / [id number] Description:Yuliya chemical laboratory chief refle ctor Procedures Procedure Name Priority Date/Time Associated Diagnosis Comments EXTERNAL PROCEDURE 06/25/2024 2: 15 PM EDT CA 15-3 BLD Routine 06/20/2024 10:11 AM EDT Malignant neoplasm of upper-outer quadrant of right breast in female, estrogen receptor positive (HCC) Breast cancer metastasized to axillary lymph node, right (HCC) IMMUNOASSY TUMOR CA 15-3 Routine 06/20/2024 10:11 AM EDT Malignant neoplasm of upper-outer quadrant of right breast in female, estrogen receptor positive (HCC) Breast cancer metastasized to axillary lymph node, right (HCC) CBC + DIFF Routine 06/20/2024 10:11 AM EDT Malignant neoplasm of upper-outer quadrant of right breast in female, estrogen receptor positive (HCC) Breast cancer metastasized to axillary lymph node, right (HCC) COMPREHENSIVE METABOLIC PANEL Routine 06/20/2024 10:11 AM EDT Malignant neoplasm of upper-outer quadrant of right breast in female, estrogen receptor positive (HCC) Breast cancer metastasized to axillary lymph node, right (HCC) CA 27.29 BLOOD Routine 06/20/2024 10:11 AM EDT Malignant neoplasm of upper-outer quadrant of right breast in female, estrogen receptor positive (HCC) Breast cancer metastasized to axillary lymph node, right (HCC) RAMOS DIAG W ANABEL BILATERAL Routine 10/10/2023 11:46 AM EDT HEMOGLOBIN A1C Routine 07/23/2022 8:51 AM EDT Special screening examination for viral disease Diabetes mellitus without complication (HCC) HEPATITIS C VIRUS (HCV) RNA, QUANTITATIVE PCR, PLASMA/SERUM Routine 07/23/2022 8:51 AM EDT Special screening examination for viral disease Diabetes mellitus without complication (HCC) COLONOSCOPY DIAGNOSTIC Routine 05/24/2022 9:43 AM EDT Diverticulitis from Last 3 Months or Most Recently Relevant to Health Maintenance Results * EXTERNAL PROCEDURE (06/25/2024 2:15 PM EDT) us External Provider PA-C PROCEDURE Final Res ult * CA 27.29 (06/20/2024 10:11 AM EDT) CA27.29 25.3 <38.6 U/mL 06/20/2024 6:20 PM EDT [facility] Comment: The CA27.29 test was performed using the Siemens [employer] XP chemiluminometric immunoassay method. Results obtained with different assay methods or kits cannot be used interchangeably. [facility] will discontinue CA 27.29 testing effective 07/17/2024, with CA 15-3 as its replacement. In preparation for the discontinuation, CA 15-3 testing in parallel was conducted with CA 27.29 to establish a new baseline. Blood BLOOD SPECIMEN / Unknown Port - Continuous Access Dev. / Unknown 06/20/2024 10:11 AM EDT 06/20/2024 10:13 AM EDT us Christopher Castañeda MD LABORATORY Final Result [facility] [address] [facility] [address] [address], * (ABNORMAL) COMPREHENSIVE METABOLIC PANEL (06/20/2024 10:11 AM EDT) Protein, Total 6.9 6.3 - 8.0 g/dL 06/20/2024 10:36 AM EDT [facility] Albumin 4.1 3.9 - 4.9 g/dL 06/20/2024 10:36 AM EDT [facility] Calcium, Total 10.3(H) 8.5 - 10.2 mg/dL 06/20/2024 10:36 AM EDT [facility] Bilirubin, Total 0.3 0.2 - 1.3 mg/dL 06/20/2024 10:36 AM EDT [facility] Alkaline Phosphatase 106 34 - 123 U/L 06/20/2024 10:36 AM EDT [facility] AST 17 13 - 35 U/L 06/20/2024 10:36 AM EDT [facility] ALT 15 7 - 38 U/L 06/20/2024 10:36 AM EDT [facility] Glucose 115(H) 74 - 99 mg/dL 06/20/2024 10:36 AM EDT [facility] Comment: The [place] Diabetes Association (ADA) provides guidance for cutoff [...] Standards of Medical Care in Diabetes 2016, [place] Diabetes Association. Diabetes Care. 2016.39(Suppl 1). BUN 18 7 - 21 mg/dL 06/20/2024 10:36 AM [facility] Creatinine 0.84 0.58 - 0.96 mg/dL 06/20/2024 10:36 AM [facility] Sodium 139 136 - 144 mmol/L 06/20/2024 10:36 AM [facility] Potassium 4.0 3.7 - 5.1 mmol/L 06/20/2024 10:36 AM [facility] Chloride 103 98 - 107 mmol/L 06/20/2024 10:36 AM [facility] CO2 27 22 - 30 mmol/L 06/20/2024 10:36 AM [facility] Anion Gap 9 8 - 15 mmol/L 06/20/2024 10:36 AM [facility] Estimated Glomerular Filtration Rate 74 >=60 mL/min/1. 73m 06/20/2024 10:36 AM [facility] Comment:Estimated Glomerular Filtration Rate (eGFR) is calculated using the 2020 CKD-EPI creatinine equation. This equation utilizes serum creatinine, sex, and age as parameters. The creatinine assay has traceable calibration to isotope dilution- mass spectrometry. Refer to KDIGO guidelines for clinical interpretation. In patients with unstable renal function, e.g. those with acute kidney injury, the eGFR may not accurately reflect actual GFR. Blood BLOOD SPECIMEN / Unknown Port - Continuous Access Dev. / Unknown 06/20/2024 10:11 AM EDT 06/20/2024 10:13 AM EDT us Christopher Castañeda MD LABORATORY Final Result [facility] [address] [place] [address] * COMPLETE BLOOD COUNT AND DIFFERENTIAL (06/20/2024 10:11 AM EDT) WBC 6.32 3.70 - 11.00 k/uL 06/20/2024 10:21 AM EDT [facility] RBC 4.08 3.90 - 5.20 m/uL 06/20/2024 10:21 AM EDT [facility] Hemoglobin 12.8 11.5 - 15.5 g/dL 06/20/2024 10:21 AM EDT [facility] Hematocrit 37.9 36.0 - 46.0 % 06/20/2024 10:21 AM EDT [facility] MCV 92.9 80.0 - 100.0 fL 06/20/2024 10:21 AM EDT [facility] MCH 31.4 26.0 - 34.0 pg 06/20/2024 10:21 AM EDT [facility] MCHC 33.8 30.5 - 36.0 g/dL 06/20/2024 10:21 AM EDT [facility] RDW-CV 14.1 11.5 - 15.0 % 06/20/2024 10:21 AM EDT [facility] Platelet Count 193 150 - 400 k/uL 06/20/2024 10:21 AM EDT [facility] MPV 9.6 9.0 - 12.7 fL 06/20/2024 10:21 AM EDT [facility] Neutrophils % 69.8 % 06/20/2024 10:21 AM EDT [facility] Abs Neut 4.41 1.45 - 7.50 k/uL 06/20/2024 10:21 AM EDT [facility] Lymphocytes % 21.0 % 06/20/2024 10:21 AM EDT [facility] Abs Lymph 1.33 1.00 - 4.00 k/uL 06/20/2024 10:21 AM EDT [facility] Monocytes % 8.1 % 06/20/2024 10:21 AM EDT [facility] Abs Cla[place]on 0.51 <0.87 k/uL 06/20/2024 10:21 AM EDT [facility] Eosinophils % 0.3 % 06/20/2024 10:21 AM EDT [facility] Abs Eosin <0.03 <0.46 k/uL 06/20/2024 10:21 AM EDT [facility] Basophils % 0.3 % 06/20/2024 10:21 AM EDT [facility] Abs Baso <0.03 <0.11 k/uL 06/20/2024 10:21 AM EDT [facility] Immature Granulocytes % 0.5 % 06/20/2024 10:21 AM EDT [facility] Abs Immature Gran 0.03 <0.10 k/uL 025 10:21 AM EDT [facility] NRBC 0.0 /100 WBC 06/20/2024 10:21 AM EDT [facility] Absolute nRBC <0.01 <0.01 k/uL 06/20/2024 10:21 AM EDT [facility] Diff Type Auto 06/20/2024 10:21 AM EDT [facility] Blood BLOOD SPECIMEN / Unknown Port - Continuous Access Dev. / Unknown 06/20/2024 10:11 AM EDT 06/20/2024 10:13 AM EDT Christopher Castañeda MD LABORATORY Final Result [facility] [address] [place] [address] * CA 15-3 BLD (06/20/2024 10:11 AM EDT) Breast CA 15-3 22.4 <26.0 U/mL 06/20/2024 5:32 PM EDT [facility] Comment: The CA 15-3 test methodology used is the Electrochemiluminescence Immunoassay by [employer]. Results obtained with different methods or kits cannot be used interchangeably. [facility] will discontinue CA 27.29 testing effective 07/17/2024, with CA 15-3 as its replacement. In preparation for the discontinuation, CA 15-3 testing in parallel was conducted with CA 27.29 to establish a new baseline. Blood BLOOD SPECIMEN / Unknown Port - Continuous Access Dev. / Unknown 06/20/2024 10:11 AM EDT 06/20/2024 10:13 AM EDT us Christopher Castañeda MD LABORATORY Final Result [facility] [address] [facility] [address] [place] [address], [place] * RAMOS DIAG W ANABEL BILATERAL (10/10/2023 11:46 AM EDT) Anatomical Region Laterality Modality Breast Bilateral Mammography 10/10/2023 11:4 6 AM EDT Impressions 10/10/2023 11:58 AM EDT IMPRESSION: INCOMPLETE: NEED ADDITIONAL IMAGING EVALUATION There is no abnormality seen in the right breast to correspond with the palpable abnormality, however, ultrasound is recommended. LIMITED ULTRASOUND OF RIGHT BREAST: 10/10/2023 RESULT: Comparison is made to exams dated: 10/07/2022 mammogram, 11/12/2021 mammogram - [facility], and 09/30/2021 mammogram. Real-time ultrasound of the right breast was performed. Cristina scale images of the real-time examination were reviewed. Targeted scanning of the area of palpable concern/thickening at 3:00 5 cmfn was performed. There is skin thickening measuring up to 6.4 mm, likely relating to post-radiation change. Mammographically, the skin thickening and post radiation change has overall decreased compared to 09/2022, compatible with benign etiology. No suspicious sonographic findings were seen. IMPRESSION: BENIGN There is no sonographic evidence of malignancy. Skin thickening in the right breast likely relating to post-radiation change. Follow up of the area of palpable concern/thickening should be based on clinical assessment. A 1 year screening mammogram is recommended. Krista marie/elva:10/10/2023 11:58:21 Multiple national specialty organizations have released breast cancer screening guidelines for women at average risk for developing breast cancer - guidelines that are based on both evidence and opinion, yet differ on when to start and how often to screen for breast cancer. With representation from Breast Imaging, Internal Medicine, Women's Health, Family Medicine, and Medical/Surgical Oncology, the [facility] has carefully reviewed the data [...] their providers when to stop screening mammograms. Campground Attendant(s): Shakila Cobos, RT(R)(M), [facility]; [facility] OVERALL STUDY BIRADS: Category 2: Benign Completions Engineer: Elva Transcribe Date/Time: Oct 10 2023 11:16A Dictated by : KRISTA ABDI MD This examination was interpreted and the report reviewed and electronically signed by: KRISTA ABDI MD on Oct 10 2023 11:58AM EST Narrative 10/10/2023 11:58 AM EDT * * *Final Report* * * DATE OF EXAM: Oct 10 2023 11:46AM [facility] 0627 - [facility] / PROCEDURE REASON: multiple diagnoses * * * * Physician Interpretation * * * * RESULT: #[id number] - [facility] #[id number] - [facility] BREAST LTD RT BILATERAL DIGITAL DIAGNOSTIC MAMMOGRAM TOMOSYNTHESIS WITH CAD: 10/10/2023 HISTORY: Multiple Diagnoses /The patient is also due for her annual mammogram. Right breast /SEE TECH NOTE Multiple Diagnoses. RESULT: TECHNIQUE: The study was acquired using full field digital technology and interpreted from soft copy. Digital Breast Tomosynthesis (DBT) images were obtained and used to assist in the interpretation of this examination. Current study was also evaluated with a Computer Aided Detection (CAD). Comparison is made to exams dated: 10/07/2022 mammogram, 11/12/2021 mammogram - [facility], and 09/30/2021 mammogram. There are scattered areas of fibroglandular density. The patient is status post lumpectomy right breast. The right breast has post-operative findings. There are benign post radiation changes in the right breast. No significant masses, calcifications, or other findings are seen in either breast. Procedure Note Provider, [facility] - 10/10/2023 * * *Final Report* * * DATE OF EXAM: Oct 10 2023 11:46AM W 0627 - [facility] DIAG W ANABEL SILAS / PROCEDURE REASON: multiple diagnoses * * * * Physician Interpretation * * * * RESULT: #[id number] - [facility] DIAG W ANABEL SILAS #[id number] - [facility] RT BILATERAL DIGITAL DIAGNOSTIC MAMMOGRAM TOMOSYNTHESIS WITH CAD: 10/10/2023 HISTORY: Multiple Diagnoses /The patient is also due for her annual mammogram. Right breast /SEE TECH NOTE Multiple Diagnoses. RESULT: TECHNIQUE: The study was acquired using full field digital technology and interpreted from soft copy. Digital Breast Tomosynthesis (DBT) images were obtained and used to assist in the interpretation of this examination. Current study was also evaluated with a Computer Aided Detection (CAD). Comparison is made to exams dated: 10/07/2022 mammogram, 11/12/2021 mammogram - [facility], and 09/30/2021 mammogram. There are scattered areas of fibroglandular density. The patient is status post lumpectomy right breast. The right breast has post-operative findings. There are benign post radiation changes in the right breast. No significant masses, calcifications, or other findings are seen in either breast. IMPRESSION IMPRESSION: INCOMPLETE: NEED ADDITIONAL IMAGING EVALUATION There is no abnormality seen in the right breast to correspond with the palpable abnormality, however, ultrasound is recommended. LIMITED ULTRASOUND OF RIGHT BREAST: 10/10/2023 RESULT: Comparison is made to exams dated: 10/07/2022 mammogram, 11/12/2021 mammogram - [facility], and 09/30/2021 mammogram. Real-time ultrasound of the right breast was performed. Cristina scale images of the real-time examination were reviewed. Targeted scanning of the area of palpable concern/thickening at 3:00 5 cmfn was performed. There is skin thickening measuring up to 6.4 mm, likely relating to post-radiation change. Mammographically, the skin thickening and post radiation change has overall decreased compared to 09/2022, compatible with benign etiology. No suspicious sonographic findings were seen. IMPRESSION: BENIGN There is no sonographic evidence of malignancy. Skin thickening in the right breast likely relating to post-radiation change. Follow up of the area of palpable concern/thickening should be based on clinical assessment. A 1 year screening mammogram is recommended. Krista marie/elva:10/10/2023 11:58:21 Multiple national specialty organizations have released breast cancer screening guidelines for women at average risk for developing breast cancer - guidelines that are based on both evidence and opinion, yet differ on when to start and how often to screen for breast cancer. With representation from Breast Imaging, Internal Medicine, Women's Health, Family Medicine, and Medical/Surgical Oncology, the [facility] has carefully reviewed the data [...] their providers when to stop screening mammograms. Campground Attendant(s): RT Gen(R)(M), [facility]; [address], [facility] OVERALL STUDY BIRADS: Category 2: Benign Completions Engineer: Elva Transcribe Date/Time: Oct 10 2023 11:16A Dictated by : KRISTA ABDI MD This examination was interpreted and the report reviewed and electronically signed by: KRISTA ABDI MD on Oct 10 2023 11:58AM EST Reece Hooper MD [facility] Final Result * (ABNORMAL) HGB A1C (07/23/2022 8:51 AM EDT) Hemoglobin A1C 7.7(H) 4.3 - 5.6 % 07/23/2022 7:26 PM EDT [facility] Comment:Citizen Of [place] Diabetes As sociation guidelines indicate that patients with HgbA1c in the range 5.7-6.4% are at increased risk for development of diabetes, and intervention by lifestyle modification may be beneficial. HgbA1c greater or equal to 6.5% is considered diagnostic of diabetes. Estimated Average Glucose 174 mg/dL 07/23/2022 7:26 PM EDT [facility] Comment:eAG: (Estimated aver age glucose) is a calculated value from HgbA1c and is public service representative of the average blood glucose level in the last 2-3 month period. Blood BLOOD SPECIMEN / Unknown Port - Continuous Access Dev. / Unknown 07/23/2022 8:51 AM EDT 07/23/2022 8:53 AM EDT Nate Duval MD LABORATORY Final Result [facility] [address] * HCV QUANT RNA BY PCR (07/23/2022 8:51 AM EDT) HCV RNA HCV RNA not detected by PCR. HCV RNA not detected by PCR. RAMIREZ JJ 6800 07/24/2022 4:40 AM EDT [facility] Blood BLOOD SPECIMEN / Unknown Port - Continuous Access Dev. / Unknown 07/23/2022 8:51 AM EDT 07/23/2022 8:53 AM EDT Narrative [facility] - 07/24/2022 4:40 AM EDT The Linear Range of this assay is 15 IU/ml to 100,000,000 IU/ml us Nate Duval MD LABORATORY Final Result [facility] [address] [facility] [address] [place] [address], [place] * COLONOSCOPY DIAGNOSTIC (05/24/2022 9:43 AM EDT) Anatomical Region Laterality Modality Other 05/24/2022 9:43 AM EDT Narrative 05/24/2022 10:16 AM EDT [facility] Gastrointestinal Endoscopy Patient Name: Kiah Cortes Procedure Date: 05/24/2022 9:43 AM Date of : 1955 Admit Type: Outpatient Age: 67 Room: [place] [address] Gender: Female Note Status: Finalized Attending MD: Joaquín Mahmood Jr, MD Procedure: Colonoscopy Indications: Abnormal CT of the GI tract Providers: Joaquín Mahmood Jr, MD Patient Profile: Last Colonoscopy: more than 10 years ago. Referring Physician: Talon Shaw MD (Referring MD) Medicines: Monitored Anesthesia [...] previous diet. Procedure Code(s): --- Professional --- 27599, Colonoscopy, flexible; diagnostic, including collection of specimen(s) by brushing or washing, when performed (separate procedure) Diagnosis Code(s): --- Professional --- K57.30, Diverticulosis of large intestine without perforation or abscess without bleeding R93.3, Abnormal findings on diagnostic imaging of other parts of digestive tract CPT copyright 2020 [place] [employer]. All rights reserved. The codes documented in this report are preliminary and upon citrix engineer review may be revised to meet current compliance requirements. Attending Participation: I personally performed the entire procedure. Scope In: 9:57:52 AM Scope Out: 10:09:42 AM MD Joaquín Lozano Jr, MD 05/24/2022 10:12:39 AM This report has been signed electronically by Joaquín Mahmood Jr, MD Number of Addenda: 0 Note Initiated On: 05/24/2022 9:43 AM Estimated Blood Loss: Estimated blood loss: none. us Talon Shaw MD DIGESTIVE DISEASE Final Resu lt from Last 3 Months or Most Recently Relevant to Health Maintenance Insurance MEDICARE ANTHEM BCBS FEP PPO Member Subscriber Plan / Payer (Ef fective 2008-Present) Name:Kiah Cortes Relation to Subscriber:Self Name:Kiah Cortes Payer ID:[id number] (NAIC) Group ID:[id number] Type:PPO Address: [address] [place] [id number] Care Teams Emergency Generator Mechanic Relationship Specialty Start Date End Date Nate Duval MD PCP - General Family Medicine 05/24/22 Christopher Castañeda MD [address] [place] [place] [address] Physician Hematology/Oncology 11/18/21 Miriam Nj, HENRRY [address] [place] [address] Specialty Telephone Order Dispatcher Hematology/Oncology 11/18/21 Dipti Toussaint APRN.CNP [address] [place] [address] Nurse Practitioner Hematology/Oncology 11/18/21 Shereen Arnett LSW Welding Rod Coater 11/20/21
--- OUTSIDE RECORDS SUMMARY | 2024-07-30 09:37 | XMS_ITS | Encounter Summary ---
Author Organization [facility] Address [address] [place] [address] Care Team Providers Care Aquatic Scientist Name Role Phone Shaikh SHANIQUA [place] Primary Care Provider [phone] Christopher Castañeda MD Unavailable [phone] Miriam Nj RN Unavailable [phone] Dipti Toussaint APRN.CONFERENCE ORGANIZER Unavailable [phone] Shereen Arnett Unavailable Unavailable Nate Duval MD Primary Care Provider [phone] Source Comments In the event this information is protected by the Federal Confidentiality of Alcohol and Drug AbusePatient Records regulations: The Federal rules restrict any use of the information to criminally investigate or prosecute any alcohol or drug abuse patient.[facility] Encounter Details Date Type Department Care Team (Late st Contact Info) Description 05/10/2022 Patient Msg Genetic Healthcare [address] [place] [address] Rodrigo, Jj Barajas, [place] [address] [place] [address] Genetic Test Result Social History Tobacco Use Types Packs/Day Years Used Date Smoking Tobacco: Never Passive Smoke Exposure: Past Smokeless Tobacco: Never Alcohol Use Standard Drinks/Week Comments Not Currently 0 (1 standard drink = 0.6 oz pur e alcohol) 1 glass of wne a month PHQ-2 Answer Date Recorded PHQ-2 score 0 03/31/2022 Area Deprivation Index Answer Date Msohe rded National Score (1-100), lower number is lower ri sk 74 03/15/2022 State Score (1-10), lower number is lower risk N ot on file 03/15/2022 Data from: https://www.neighborhoodatlas.[facility]/. Last address used for calculation [address] 03/15/2022 Comments No Sex and Gender Information Value Date Recorded Sex Assigned at Female 10/14/2021 3:21 PM EDT Legal Sex Female 2:54 PM EDT Gender Identity Female 10/14/2021 3:21 PM EDT Sexual Orientation Choose not to disclose 2021 3:21 PM EDT Travel History Travel Start Travel End [place] 07/14/2024 07/22/2024 documented as of this encounter Plan of Treatment Upcoming Encounters Date Type Department Care Team (Late st Contact Info) Description 08/01/2024 1:00 PM EDT Office Visit Neurology [address] [place] [address] [place] [address] [place] [address] polyneuropathy 09/26/2024 1:30 PM EDT Infusion Center Hematology/Oncolog y [facility] [place] [address] 12 week follow up with lab 09/26/2024 2:00 PM EDT Visit (SP) Office Hematology/Oncolog y [facility] [place] [address] Christopher Castañeda MD [address] [address] 12 week follow up [place] documented as of this encounter Visit Diagnoses Not on filedocumented in this encounter Care Teams Aquatic Scientist Relationship Specialty Start Date End Date Shaikh [place] MD [address] [place] [address] PCP - General Primary Care 10/21/21 05/23/22 Nate Duval MD PCP - General Family Medicine 05/24/22 Christopher Castañeda MD [address] [place] [address] Physician Hematology/Oncology 11/18/21 Miriam Nj, HENRRY [address] [place] [address] Specialty Blacksmith Apprentice Hematology/Oncology 11/18/21 Dipti Toussaint APRN.CONFERENCE ORGANIZER [address] [place] [address] Nurse Practitioner Hematology/Oncology 11/18/21 Shereen Arnett LSW Office Systems Technology Instructor 11/20/21 documented as of this encounter
--- OUTSIDE RECORDS SUMMARY | 2024-07-30 09:37 | XMS_ITS | Referral Summary ---
Author Organization [facility] Address [address] [place] [address] Care Team Providers Care Communications Intern Name Role Phone Unavailable Primary Care Provider [...]
--- OUTSIDE RECORDS SUMMARY | 2024-07-30 09:37 | XMS_ITS | Encounter Summary ---
Author Organization [facility] Address [address] [place] [address] Care Team Providers Care Analytics Senior Manager Name Role Phone Shaikh SHANIQUA [place] Primary Care Provider [phone] Christopher Castañeda MD Unavailable [phone] Miriam Nj RN Unavailable [phone] Dipti Toussaint APRN.CHILD DEVELOPMENT TEACHER Unavailable [phone] Shereen Arnett Unavailable Unavailable Nate Duval MD Primary Care Provider [phone] Source Comments In the event this information is protected by the Federal Confidentiality of Alcohol and Drug AbusePatient Records regulations: The Federal rules restrict any use of the information to criminally investigate or prosecute any alcohol or drug abuse patient.[facility] Encounter Details Date Type Department Care Team (Late st Contact Info) Description 05/05/2022 Patient Msg General Surgery [address] [place] [address] Provider, Ccf colonoscopy prep instructions Social History Tobacco Use Types Packs/Day Years [...] ot on file 03/15/2022 Data from: https://www.neighborhoodatlas.medicine.[facility]/. Last address used for calculation [address] 03/15/2022 Comments No Sex and Gender Information Value Date Recorded Sex Assigned at Female 10/14/2021 3:21 PM EDT Legal Sex Female 2:54 PM EDT Gender Identity Female 10/14/2021 3:21 PM EDT Sexual Orientation Choose not to disclose 2021 3:21 PM EDT Travel History Travel Start Travel End [place] 07/14/2024 07/22/2024 documented as of this encounter Plan of Treatment Upcoming Encounters Date Type Department Care Team (Late st Contact Info) Description 08/01/2024 1:00 PM EDT Office Visit Neurology [address] [place] [address] [place] [address] [place] [address] polyneuropathy 09/26/2024 1:30 PM EDT Infusion Center Hematology/Oncolog y [address] [place] [address] 12 week follow up with lab 09/26/2024 2:00 PM EDT Visit (SP) Office Hematology/Oncolog y [address] [place] [address] Christopher Castañeda MD [address] [place] [address] 12 week follow up [place] documented as of this encounter Visit Diagnoses Not on filedocumented in this encounter Care Teams Analytics Senior Manager Relationship Specialty Start Date End Date Shaikh [place] MD [facility] [place] [address] PCP - General Primary Care 10/21/21 05/23/22 Nate Duval MD PCP - General Family Medicine 05/24/22 Christopher Castañeda MD [address] [place] [address] Physician Hematology/Oncology 11/18/21 Miriam Nj, HENRRY [address] [place] [address] [place] [address] Specialty Craft Manager Hematology/Oncology 11/18/21 Dipti Toussaint APRN.CHILD DEVELOPMENT TEACHER [address] [address] Nurse Practitioner Hematology/Oncology 11/18/21 Shereen Arnett LSW Preschool Substitute Teacher 11/20/21 documented as of this encounter
== END 2024-08-06 10:22 | disposition home or self-care (01) ==
LOC: RAD 10:21
PROVIDERS: PCP Family Medicine; Visit Provider Family Medicine
DX: E28.39 Other primary ovarian failure (principal); M85.80 Other specified disorders of bone density and structure, unspecified site
CPT/HCPCS: 77080